=== PATIENT | female | born 1965 | race Caucasian/White ===

== ENCOUNTER → 2023-02-26 17:39 | Outpatient (CLI) | payer MEDICARE, SELFPAY ==
[2023-02-26 18:24] LABS: Basophils # 0.1 K/mm3 (0-0.2); Basophils % 0.8 % (0.1-2.0); Eosinophils # 0.3 K/mm3 (0.0-0.4); Eosinophils % 3.9 % (0.1-12.0); Hematocrit 47.7 % (37.0-47.0); Hemoglobin 15.1 g/dL (12.2-16.2); Lymphocytes # 2.2 K/mm3 (0.7-4.5); Lymphocytes % 26.1 % (10-50); Mean Corpuscular HGB Conc 31.7 g/dL (31.8-35.4); Mean Corpuscular Hemoglobin 32.3 pg (27.0-31.2); Mean Platelet Volume 9.4 fl (7.4-10.4); Monocytes # 0.5 K/mm3 (0.1-1.0); Monocytes % 5.5 % (1.7-9.3); Neutrophils # 5.3 K/mm3 (1.8-7.8); Neutrophils % 63.6 % (37.0-80.0); Platelet Count 385 K/mm3 (142-424); Red Blood Count 4.68 M/mm3 (4.20-5.40); Red Cell Distribution Width 12.4 % (11.5-17.5); White Blood Count 8.4 K/mm3 (4.8-10.8)
[2023-02-26 18:34] LABS: Alanine Aminotransferase 17 U/L (12-78); Albumin Level 4.3 g/dl (3.5-5.0); Albumin/Globulin Ratio 1.9 (1.1-1.8); Alkaline Phosphatase 113 U/L (38-126); Anion Gap 10.9 mEq/L (5-15); Aspartate Amino Transferase 21 U/L (14-36); Bilirubin,Total 1.1 mg/dl (0.2-1.3); Blood Urea Nitrogen 23 mg/dl (7-17); Calcium 9.1 mg/dl (8.4-10.2); Carbon Dioxide 29 mmol/L (22.0-30.0); Chloride 101 mmol/L (98-107); Chol/HDL Ratio 6.7 (1-3.5); Cholesterol 266 mg/dl (140-200); Estimated Glomerular Filt Rate 74 ml/min (>60); GFR (African American) 90 ML/MIN (>60); Globulin 2.3 g/dL (1.3-3.2); Glucose 134 mg/dl (74-100); HDL Cholesterol 40 mg/dl (40-60); Potassium 3.9 mmoL/L (3.5-5.1); Sodium 137 mmol/L (136-145); Total Protein,Serum 6.6 g/dl (6.3-8.2); Triglycerides 263 mg/dl (30-150); VLDL Cholesterol 53 mg/dL (0-40)
[2023-02-26 18:45] LABS: Direct LDL Cholesterol 171.88 mg/dL (100-129)
[2023-02-26 19:04] LABS: Thyroid Stimulating Hormone 2.72 uIU/mL (0.465-4.68)
[2023-02-26 20:29] LABS: Hemoglobin A1C 5.9 % (4.0-6.0)
== END ==
PROVIDERS: PCP Nurse Practitioner Family; Visit Provider Nurse Practitioner Family
DX: E78.5 Hyperlipidemia, unspecified; Z79.84 Long term (current) use of oral hypoglycemic drugs; E11.9 Type 2 diabetes mellitus without complications
CPT/HCPCS: 80053; 80061; 83036; 84443; 85025

== ENCOUNTER → 2023-07-04 10:00 | Outpatient (CLI) | payer MEDICARE, SELFPAY ==
[2023-07-02 18:38] LABS: Basophils % 0.5 % (0.1-2.0); Eosinophils # 0.4 K/mm3 (0.0-0.4); Eosinophils % 4.7 % (0.1-12.0); Hematocrit 47.1 % (37.0-47.0); Lymphocytes # 2.4 K/mm3 (0.7-4.5); Lymphocytes % 30.1 % (10-50); Mean Corpuscular HGB Conc 31.9 g/dL (31.8-35.4); Mean Corpuscular Volume 100.4 fl (81-99); Mean Platelet Volume 9.6 fl (7.4-10.4); Monocytes # 0.4 K/mm3 (0.1-1.0); Monocytes % 5.6 % (1.7-9.3); Neutrophils # 4.7 K/mm3 (1.8-7.8); Neutrophils % 59.2 % (37.0-80.0); Platelet Count 326 K/mm3 (142-424); Red Blood Count 4.69 M/mm3 (4.20-5.40); Red Cell Distribution Width 12.3 % (11.5-17.5); White Blood Count 7.9 K/mm3 (4.8-10.8)
[2023-07-02 18:58] LABS: Alanine Aminotransferase 22 U/L (12-78); Albumin Level 4.5 g/dl (3.5-5.0); Albumin/Globulin Ratio 1.6 (1.1-1.8); Alkaline Phosphatase 114 U/L (38-126); Anion Gap 14.3 mEq/L (5-15); Aspartate Amino Transferase 31 U/L (14-36); Bilirubin,Total 0.9 mg/dl (0.2-1.3); Blood Urea Nitrogen 14 mg/dl (7-17); Calcium 9.6 mg/dl (8.4-10.2); Carbon Dioxide 25 mmol/L (22.0-30.0); Chloride 104 mmol/L (98-107); Cholesterol 185 mg/dl (140-200); Estimated Glomerular Filt Rate 86 ml/min (>60); GFR (African American) 104 ML/MIN (>60); Globulin 2.8 g/dL (1.3-3.2); Glucose 109 mg/dl (74-100); HDL Cholesterol 37 mg/dl (40-60); Potassium 4.3 mmoL/L (3.5-5.1); Sodium 139 mmol/L (136-145); Total Protein,Serum 7.3 g/dl (6.3-8.2); Triglycerides 373 mg/dl (30-150); VLDL Cholesterol 75 mg/dL (0-40)
[2023-07-02 19:09] LABS: Direct LDL Cholesterol 91.13 mg/dL (100-129)
[2023-07-02 19:12] LABS: Hemoglobin A1C 5.9 % (4.0-6.0)
[2023-07-02 19:15] LABS: Troponin I < 0.01 ng/ml (0.00-0.034)
[2023-07-02 19:29] LABS: Thyroid Stimulating Hormone 1.98 uIU/mL (0.465-4.68)
== END ==
PROVIDERS: PCP Nurse Practitioner Family; Visit Provider Nurse Practitioner Family
DX: E11.9 Type 2 diabetes mellitus without complications (principal); R07.9 Chest pain, unspecified; F41.9 Anxiety disorder, unspecified; M54.2 Cervicalgia; Z79.84 Long term (current) use of oral hypoglycemic drugs; Z79.899 Other long term (current) drug therapy
CPT/HCPCS: 80053; 80061; 83036; 84443; 84484; 85025

== ENCOUNTER → 2023-09-24 13:08 | Outpatient (CLI) | payer MEDICARE, SELFPAY ==
--- NOTE | 2023-09-24 13:13 | XR_ITS ---
FINAL REPORT CLINICAL HISTORY: right hand fx FINDINGS: Right hand Three views were obtained. There is no acute fracture or dislocation. There are postoperative changes of the 1st metacarpal. No soft tissue abnormality is identified. IMPRESSION: Postsurgical changes. Reviewed, Interpreted and Dictated by Prosper Rowell III, MD Transcribed by Cat Zhu Authenticated and [facility]
== END ==
LOC: RAD 13:10
PROVIDERS: PCP Nurse Practitioner Family; Visit Provider Orthopaedic Surgery
DX: S62.91XA Unspecified fracture of right hand, initial encounter for closed fracture (principal)
CPT/HCPCS: 73130

== ENCOUNTER → 2023-09-30 09:27 | Outpatient (CLI) | payer MEDICARE, SELFPAY ==
--- NOTE | 2023-09-30 09:31 | CT_ITS ---
FINAL REPORT TECHNIQUE: Thin section axial CT images of the temporal bones were obtained. Coronal reformatted images were also obtained.This study was performed with techniques to keep radiation doses as low as reasonably achievable (ALARA). Individualized dose reduction techniques using automated exposure control or adjustment of mA and/or kV according to the patient''s size were employed. CLINICAL HISTORY: LEFT EAR PAIN AND VERTIGO COMPARISON: None FINDINGS: The internal auditory canals are symmetric. The bony inner ear structures are unremarkable. The middle ear spaces are clear with ossicle chains intact. The right mastoid air cells are unremarkable. The external auditory canal is unremarkable. The right tympanic membrane is unremarkable. On the left is presumed postoperative change from mastoidectomy without abnormal opacification. There is a soft tissue density in the deep portion of the left external auditory canal abutting the tympanic membrane. There is no associated bony erosion. This may represent cerumen, although inflammatory process can have a similar appearance. IMPRESSION: Abnormal soft tissue density left external auditory canal abutting the tympanic membrane. Middle ear spaces are clear. Postoperative changes left mastoid. Reviewed, Interpreted and Dictated by Blue Martinez MD Transcribed by Nunu Wong Authenticated and . [facility]
== END ==
LOC: RAD 09:28
PROVIDERS: PCP Nurse Practitioner Family; Visit Provider Nurse Practitioner
DX: G89.29 Other chronic pain (principal); H92.02 Otalgia, left ear; R42 Dizziness and giddiness
CPT/HCPCS: 70480

== ENCOUNTER 2024-06-11 09:28 | Outpatient (CLI) | payer MEDICARE, SELFPAY ==
[2024-06-11 17:03] LABS: Basophils # 0.1 K/mm3 (0-0.2); Basophils % 0.9 % (0.1-2.0); Eosinophils # 0.4 K/mm3 (0.0-0.4); Eosinophils % 5.2 % (0.1-12.0); Hematocrit 45.8 % (37.0-47.0); Hemoglobin 14.8 g/dL (12.2-16.2); Lymphocytes # 2.7 K/mm3 (0.7-4.5); Mean Corpuscular HGB Conc 32.4 g/dL (31.8-35.4); Mean Corpuscular Hemoglobin 33.4 pg (27.0-31.2); Mean Corpuscular Volume 103.1 fl (81-99); Mean Platelet Volume 9.6 fl (7.4-10.4); Monocytes # 0.4 K/mm3 (0.1-1.0); Monocytes % 5.6 % (1.7-9.3); Neutrophils % 52.3 % (37.0-80.0); Platelet Count 343 K/mm3 (142-424); Red Blood Count 4.44 M/mm3 (4.20-5.40); Red Cell Distribution Width 12.7 % (11.5-17.5); White Blood Count 7.6 K/mm3 (4.8-10.8)
[2024-06-11 17:28] LABS: Alanine Aminotransferase 12 U/L (12-78); Albumin Level 3.7 g/dl (3.5-5.0); Albumin/Globulin Ratio 1.5 (1.1-1.8); Alkaline Phosphatase 88 U/L (38-126); Anion Gap 9.1 mEq/L (5-15); Aspartate Amino Transferase 18 U/L (14-36); Bilirubin,Total 1.2 mg/dl (0.2-1.3); Blood Urea Nitrogen 18 mg/dl (7-17); Calcium 8.8 mg/dl (8.4-10.2); Carbon Dioxide 25 mmol/L (22.0-30.0); Chloride 110 mmol/L (98-107); Chol/HDL Ratio 6.6 (1-3.5); Cholesterol 236 mg/dl (140-200); Estimated Glomerular Filt Rate 103 ml/min (>60); GFR (African American) 124 ML/MIN (>60); Globulin 2.5 g/dL (1.3-3.2); Glucose 100 mg/dl (74-100); HDL Cholesterol 36 mg/dl (40-60); Potassium 4.1 mmoL/L (3.5-5.1); Sodium 140 mmol/L (136-145); Total Protein,Serum 6.2 g/dl (6.3-8.2); Triglycerides 239 mg/dl (30-150); VLDL Cholesterol 48 mg/dL (0-40)
[2024-06-11 17:39] LABS: Direct LDL Cholesterol 151.53 mg/dL (100-129)
[2024-06-11 17:46] LABS: 25-OH Vitamin D, Total 20.4 ng/mL (30-100)
[2024-06-11 18:00] LABS: Thyroid Stimulating Hormone 0.18 uIU/mL (0.465-4.68)
[2024-06-11 18:05] LABS: Hemoglobin A1C 6.2 % (4.0-6.0)
[2024-06-11 22:38] LABS: Creatinine,Urine Random 87 mg/dL (Not Estab.); Microalbumin < 6.000 mg/L (0-16.7)
== END 2024-06-11 23:59 | disposition home or self-care (01) ==
LOC: LAB.DROPOF 06-12 09:29
PROVIDERS: PCP Nurse Practitioner Family; Visit Provider Nurse Practitioner Family
DX: E03.9 Hypothyroidism, unspecified (principal); E78.5 Hyperlipidemia, unspecified; E55.9 Vitamin D deficiency, unspecified; R73.03 Prediabetes
CPT/HCPCS: 80050; 80053; 80061; 82043; 82306; 82570; 83036; 84443; 85025

== ENCOUNTER 2024-06-22 12:30 | Outpatient (CLI) | payer MEDICARE, SELFPAY ==
--- NOTE | 2024-06-22 12:34 | MM_ITS ---
PROCEDURE INFORMATION: Exam: MG Bilateral Screening 3D Mammography Exam date and time: 06/22/2024 1:10 PM Age: 59 years old Clinical indication: Screening examination. TECHNIQUE: Imaging protocol: Bilateral Screening tomosynthesis and 2D mammography including computer-aided detection (CAD) when performed. COMPARISON: 1. MG JOVANNY DIAG MAMMO W/CAD BILAT 02/27/2021 1:45 PM 2. MG JOVANNY DIAG MAMMO W/CAD RT 06/15/2020 11:02 AM FINDINGS: MAMMOGRAPHY: Breast composition: The breasts are heterogeneously dense, which may obscure small masses. Mass: None. Architectural distortion: None. Calcifications: No suspicious calcifications. Asymmetric density: None. Skin thickening: None. Axillary adenopathy: None. IMPRESSION: No mammographic evidence of malignancy. Annual screening is recommended unless otherwise clinically indicated. ASSESSMENT: BI-RADS Category 1: Negative
--- NOTE | 2024-06-22 12:34 | CT_ITS ---
FINAL REPORT CLINICAL HISTORY: lung cancer screening, CURRENT SMOKER, 1/3PPD, 39YEARS FINDINGS: CTDI vol (mGy): 2.90 DLP: 99.[address] images of the chest were obtained using the low-dose protocol for screening. There is no evidence of mediastinal or hilar mass or adenopathy. No axillary mass or adenopathy is identified. On the lung window images, no pulmonary mass or suspicious nodule is identified. IMPRESSION: Lung RADS category 1 . Recommend 12 month followup low-dose CT for further evaluation. Reviewed, Interpreted and Dictated by Flo Freeman MD Transcribed by Pam Kennedy Authenticated and [facility]
== END 2024-06-22 23:59 | disposition home or self-care (01) ==
LOC: RAD 12:31
PROVIDERS: PCP Nurse Practitioner Family; Visit Provider Nurse Practitioner Family
DX: Z12.31 Encounter for screening mammogram for malignant neoplasm of breast (principal); Z87.891 Personal history of nicotine dependence
CPT/HCPCS: 71271; 77063; 77067

== ENCOUNTER 2024-07-30 13:46 | Outpatient (CLI) | payer MEDICARE, MEDICAID, SELFPAY ==
[2024-07-30 19:59] LABS: HIV (1&2) Antibody Rapid NONREACTIVE (NONREACTIVE)
[2024-07-30 20:09] LABS: Thyroid Stimulating Hormone 1.48 uIU/mL (0.465-4.68)
[2024-08-01 07:12] LABS: HBsAg Screen Negative (Negative); HCV Ab Non Reactive (Non Reactive); Hep A Ab, IGM Negative (Negative); Hep B Core Ab, IgM Negative (Negative)
[2024-08-01 10:11] LABS: Rapid Plasma Reagin Ab Titer Non Reactive titer (NonRea<1:1)
[2024-08-03 04:12] LABS: Neisseria gonorrhoeae, NAA Negative (Negative)
[2024-08-04 09:14] LABS: HSV-1 DNA Negative (Negative); HSV-2 DNA Negative (Negative)
== END 2024-07-30 23:59 | disposition home or self-care (01) ==
LOC: LAB.DROPOF 07-31 14:48
PROVIDERS: PCP Student in an Organized Health Care Education/Training Program; Visit Provider Student in an Organized Health Care Education/Training Program
DX: Z71.1 Person with feared health complaint in whom no diagnosis is made (principal); R39.9 Unspecified symptoms and signs involving the genitourinary system; Z20.2 Contact with and (suspected) exposure to infections with a predominantly sexual mode of transmission; N39.0 Urinary tract infection, site not specified; E03.9 Hypothyroidism, unspecified
CPT/HCPCS: 80074; 84443; 86593; 86803; 87086; 87088; 87186; 87389; 87491; 87529; 87591

== ENCOUNTER 2024-10-22 09:17 | Outpatient (CLI) | payer MEDICARE, MEDICAID, SELFPAY ==
[2024-10-22 16:55] LABS: Basophils % 0.9 % (0.1-2.0); Eosinophils % 4.1 % (0.1-12.0); Hematocrit 42.6 % (37.0-47.0); Lymphocytes % 37.6 % (10-50); Mean Corpuscular HGB Conc 32.9 g/dL (31.8-35.4); Mean Corpuscular Volume 97.5 fl (81-99); Mean Platelet Volume 9.2 fl (7.4-10.4); Neutrophils # 3.6 K/mm3 (1.8-7.8); Neutrophils % 51.3 % (37.0-80.0); Platelet Count 303 K/mm3 (142-424); Red Blood Count 4.37 M/mm3 (4.20-5.40); Red Cell Distribution Width 12.7 % (11.5-17.5); White Blood Count 7.1 K/mm3 (4.8-10.8)
[2024-10-22 16:56] LABS: Basophils # 0.1 K/mm3 (0-0.2); Eosinophils # 0.3 K/mm3 (0.0-0.4); Lymphocytes # 2.7 K/mm3 (0.7-4.5); Monocytes # 0.4 K/mm3 (0.1-1.0)
[2024-10-22 17:29] LABS: Albumin Level 4.1 g/dl (3.5-5.0); Chloride 110 mmol/L (98-107); Sodium 137 mmol/L (136-145)
[2024-10-22 17:32] LABS: Alanine Aminotransferase 16 U/L (12-78); Albumin/Globulin Ratio 1.8 (1.1-1.8); Alkaline Phosphatase 125 U/L (38-126); Aspartate Amino Transferase 22 U/L (14-36); Bilirubin,Total 0.6 mg/dl (0.2-1.3); Blood Urea Nitrogen 20 mg/dl (7-17); Calcium 9.2 mg/dl (8.4-10.2); Carbon Dioxide 25 mmol/L (22.0-30.0); Cholesterol 238 mg/dl (140-200); Estimated Glomerular Filt Rate 64 ml/min (>60); GFR (African American) 78 ML/MIN (>60); Globulin 2.3 g/dL (1.3-3.2); Glucose 131 mg/dl (74-100); Total Protein,Serum 6.4 g/dl (6.3-8.2); Triglycerides 204 mg/dl (30-150); VLDL Cholesterol 41 mg/dL (0-40)
[2024-10-22 17:33] LABS: HDL Cholesterol 40 mg/dl (40-60)
[2024-10-22 17:43] LABS: Direct LDL Cholesterol 161.51 mg/dL (100-129)
[2024-10-22 18:03] LABS: Thyroid Stimulating Hormone 3.69 uIU/mL (0.465-4.68)
[2024-10-22 21:17] LABS: Hemoglobin A1C 6.2 % (4.0-6.0)
== END 2024-10-22 23:59 | disposition home or self-care (01) ==
LOC: LAB.DROPOF 10-23 09:36
PROVIDERS: PCP Nurse Practitioner Family; Visit Provider Nurse Practitioner Family
DX: N39.0 Urinary tract infection, site not specified (principal); E78.5 Hyperlipidemia, unspecified; E03.9 Hypothyroidism, unspecified; R39.9 Unspecified symptoms and signs involving the genitourinary system; E11.9 Type 2 diabetes mellitus without complications
CPT/HCPCS: 80053; 80061; 83036; 84443; 85025; 87086

== ENCOUNTER 2024-11-30 10:25 | Outpatient (CLI) | payer MEDICARE, MEDICAID, SELFPAY ==
[2024-11-30 16:39] LABS: Triiodothryronine (T3) Uptake 33 % (23.5-40.5)
[2024-11-30 16:40] LABS: Free Thyroxine Index 3.1 ug/dL (5.93-13.13); T4 (Thyroxine) 9.4 ug/dl (5.53-11.0)
[2024-12-01 13:08] LABS: FSH 49.7 mIU/mL (.); LH 40.7 mIU/mL (.); Progesterone 0.1 ng/mL (.)
[2024-12-04 00:09] LABS: Estrogen 190 pg/mL (40-244)
== END 2024-11-30 23:59 | disposition home or self-care (01) ==
LOC: LAB.DROPOF 12-01 09:06
PROVIDERS: PCP Nurse Practitioner Family; Visit Provider Nurse Practitioner Family
DX: L74.9 Eccrine sweat disorder, unspecified (principal); E03.9 Hypothyroidism, unspecified; F41.9 Anxiety disorder, unspecified
CPT/HCPCS: 82672; 83001; 83002; 84144; 84436; 84443; 84479

== ENCOUNTER 2025-01-19 09:21 | Outpatient (CLI) | payer MEDICARE, MEDICAID, SELFPAY ==
[2025-01-19 19:56] LABS: Basophils # 0.1 K/mm3 (0-0.2); Basophils % 0.7 % (0.1-2.0); Eosinophils # 0.3 K/mm3 (0.0-0.4); Eosinophils % 4.1 % (0.1-12.0); Hematocrit 43.2 % (37.0-47.0); Hemoglobin 13.9 g/dL (12.2-16.2); Lymphocytes # 2.3 K/mm3 (0.7-4.5); Lymphocytes % 31.4 % (10-50); Mean Corpuscular HGB Conc 32.2 g/dL (31.8-35.4); Mean Corpuscular Volume 99.3 fl (81-99); Monocytes # 0.4 K/mm3 (0.1-1.0); Neutrophils # 4.2 K/mm3 (1.8-7.8); Neutrophils % 57.7 % (37.0-80.0); Platelet Count 306 K/mm3 (142-424); Red Blood Count 4.35 M/mm3 (4.20-5.40); Red Cell Distribution Width 12.9 % (11.5-17.5); White Blood Count 7.3 K/mm3 (4.8-10.8)
[2025-01-19 20:52] LABS: Hemoglobin A1C 6.2 % (4.0-6.0)
[2025-01-19 21:21] LABS: Albumin Level 4.4 g/dl (3.5-5.0); Chloride 108 mmol/L (98-107); Potassium 4.3 mmoL/L (3.5-5.1); Sodium 139 mmol/L (136-145)
[2025-01-19 21:23] LABS: Alanine Aminotransferase 19 U/L (12-78); Aspartate Amino Transferase 20 U/L (14-36); Blood Urea Nitrogen 22 mg/dl (7-17); Estimated Glomerular Filt Rate 86 ml/min (>60); GFR (African American) 104 ML/MIN (>60)
[2025-01-19 21:24] LABS: Albumin/Globulin Ratio 2.3 (1.1-1.8); Alkaline Phosphatase 109 U/L (38-126); Anion Gap 10.3 mEq/L (5-15); Bilirubin,Total 0.6 mg/dl (0.2-1.3); Calcium 9.7 mg/dl (8.4-10.2); Carbon Dioxide 25 mmol/L (22.0-30.0); Chol/HDL Ratio 5.8 (1-3.5); Cholesterol 230 mg/dl (140-200); Globulin 1.9 g/dL (1.3-3.2); Glucose 101 mg/dl (74-100); HDL Cholesterol 40 mg/dl (40-60); Total Protein,Serum 6.3 g/dl (6.3-8.2); Triglycerides 193 mg/dl (30-150); VLDL Cholesterol 39 mg/dL (0-40)
[2025-01-19 21:35] LABS: Direct LDL Cholesterol 142.77 mg/dL (100-129)
== END 2025-01-19 23:59 | disposition home or self-care (01) ==
LOC: LAB.DROPOF 01-20 09:09
PROVIDERS: PCP Nurse Practitioner Family; Visit Provider Nurse Practitioner Family
DX: R31.9 Hematuria, unspecified (principal); E78.5 Hyperlipidemia, unspecified; E11.9 Type 2 diabetes mellitus without complications
CPT/HCPCS: 80053; 80061; 83036; 85025; 87086

== ENCOUNTER 2025-04-06 11:35 | Outpatient (CLI) | payer MEDICARE, MEDICAID, SELFPAY ==
[2025-04-06 19:12] LABS: Creatinine,Urine Random 35 mg/dL (Not Estab.); Microalbumin < 6.000 mg/L (0-16.7)
== END 2025-04-06 23:59 | disposition home or self-care (01) ==
LOC: LAB.DROPOF 04-07 10:45
PROVIDERS: Family Medicine; PCP Nurse Practitioner Family; Visit Provider Nurse Practitioner Family
DX: R39.9 Unspecified symptoms and signs involving the genitourinary system (principal)
CPT/HCPCS: 82043; 82570; 87086

== ENCOUNTER 2025-04-20 09:40 | Outpatient (CLI) | payer MEDICARE, MEDICAID, SELFPAY ==
[2025-04-20 19:34] LABS: Basophils # 0.1 K/mm3 (0-0.2); Basophils % 0.9 % (0.1-2.0); Eosinophils # 0.4 Kmm3 (0.0-0.4); Eosinophils % 3.6 % (0.1-12.0); Hematocrit 44.5 % (37.0-47.0); Hemoglobin 14.3 g/dL (12.2-16.2); Immature Granulocytes # 0.03 10^3uL; Immature Granulocytes % 0.3 %; Lymphocytes # 2.7 K/mm3 (0.7-4.5); Lymphocytes % 27.5 % (10-50); Mean Corpuscular HGB Conc 32.1 g/dL (31.8-35.4); Mean Corpuscular Hemoglobin 31.8 pg (27.0-31.2); Mean Corpuscular Volume 99.1 fl (81-99); Monocytes # 0.6 K/mm3 (0.1-1.0); Monocytes % 6.2 % (1.7-9.3); Neutrophils % 61.5 % (37.0-80.0); Nucleated Red Blood Cells # 0 10^3/uL; Nucleated Red Blood Cells % 0 %; Platelet Count 340 K/mm3 (142-424); Red Blood Count 4.49 M/mm3 (4.20-5.40); Red Cell Distribution Width 12.8 % (11.5-17.5); Red Cell Distribution Width-SD 46.4 fL; White Blood Count 9.8 K/mm3 (4.8-10.8)
[2025-04-20 19:52] LABS: Alanine Aminotransferase 9 U/L (12-78); Albumin Level 4.2 g/dl (3.5-5.0); Albumin/Globulin Ratio 1.7 (1.1-1.8); Alkaline Phosphatase 87 U/L (38-126); Anion Gap 8.6 mEq/L (5-15); Aspartate Amino Transferase 17 U/L (14-36); Blood Urea Nitrogen 16 mg/dl (7-17); Calcium 10.1 mg/dl (8.4-10.2); Carbon Dioxide 29 mmol/L (22.0-30.0); Chloride 103 mmol/L (98-107); Chol/HDL Ratio 6.9 (1-3.5); Cholesterol 243 mg/dl (140-200); Estimated Glomerular Filt Rate 74 ml/min (>60); GFR (African American) 89 ML/MIN (>60); Globulin 2.5 g/dL (1.3-3.2); Glucose 73 mg/dl (74-100); HDL Cholesterol 35 mg/dl (40-60); Potassium 4.6 mmoL/L (3.5-5.1); Sodium 136 mmol/L (136-145); Total Protein,Serum 6.7 g/dl (6.3-8.2); Triglycerides 214 mg/dl (30-150); VLDL Cholesterol 43 mg/dL (0-40)
[2025-04-20 20:03] LABS: Direct LDL Cholesterol 150.67 mg/dL (100-129)
[2025-04-20 20:17] LABS: Hemoglobin A1C 5.9 % (4.0-6.0)
[2025-04-20 20:25] LABS: Thyroid Stimulating Hormone 5.65 uIU/mL (0.465-4.68)
--- OUTSIDE RECORDS SUMMARY | 2025-04-21 10:03 | XMS_ITS | Referral Summary ---
Author Organization [employer] Address [address] [place] [address] Care Team Providers Care Adobe Layer Helper Name Role Phone [facility], Provider Not In The System Primary Care Provider Unavailable Phillip Amanda MD Unavailable Allergies Active Allergy Reactions Criticality Noted Date Comments Sulfa (Sulfonamide Antibiotics) Hives High 11/05 Medications albuterol HFA (VENTOLIN HFA) 90 mcg/actuation inhaler 1 puff 4 (four) times daily. 03/07/2024 Active DULoxetine (CYMBALTA) 60 MG capsule Take 1 capsule (60 mg total) by mouth daily. 03/08/2024 Active estradioL (ESTRACE) 0.5 MG tablet Take 1 tablet (0.5 mg total) by mouth daily. 02/07/2024 Active levothyroxine (SYNTHROID, LEVOTHROID) 100 MCG tablet Take 1 tablet (100 mcg total) by mouth daily. 02/07/2024 Active metFORMIN (GLUCOPHAGE) 500 MG tablet Take 1 tablet (500 mg total) by mouth daily. 03/12/2024 Active mirtazapine (REMERON) 30 MG tablet Take 1 tablet (30 mg total) by mouth daily. 03/06/2024 Active rosuvastatin (CRESTOR) 20 MG tablet Take 1 tablet (20 mg total) by mouth daily. 02/08/2024 Active Active Problems No known active problems Social History Tobacco Use Types Packs/Day Years Used Date Smoking Tobacco: Every Day Cigarettes Smokeless Tobacco: Never Tobacco Cessation:Ready to Q uit: Yes; Counseling Given: Yes Alcohol Use Standard Drinks/Week Comments Never 0 (1 standard drink = 0.6 oz pur e alcohol) Interpersonal Safety Answer Date Record ed Family or friends hurt you Not on file 03/19 Family or friends insult you Not on file Family or friends threaten you Not on file 0 03/19/2024 Family or friends scream or curse at you Not on file 03/19/2024 Family and Community Support Answer Salbador e Recorded Help with Day to Day Activities Not on file 03/19/2024 Feeling Lonely or Isolated Not on file 03/19 Educational Attainment Answer Date Rey rded Speak language other than Filipino at home Not on file 03/19/2024 Want help with school or training Not on file 03/19/2024 Depression Answer Date Recorded PHQ-2 Risk Not on file 03/19/2024 Disabilities Answer Date Recorded Difficulty concentrating Not on file 024 Difficulty doing errands alone Not on file 0 03/19/2024 Substance Use Answer Date Recorded Used prescription meds for non-medical reasons N ot on file 03/19/2024 Used illegal drugs past 12 months Not on file 03/19/2024 Comments Unknown Sex and Gender Information Value Date Recorded Sex Assigned at Not on file Legal Sex Female 3:19 PM CDT Gender Identity Not on file Sexual Orientation Not on file Last Filed Vital Signs Vital Sign Reading Time Taken Comments Blood Pressure 128/72 04/09/2024 4:21 PM EDT Pulse 72 04/09/2024 4:21 PM EDT Temperature - - Respiratory Rate - - Oxygen Saturation 94% 04/09/2024 4:21 PM EDT Inhaled Oxygen Concentration - - Weight 74.4 kg (164 lb) 04/09/2024 4:21 PM EDT Height 172.7 cm (5' 8 ) 04/09/2024 4:21 PM EDT Body Mass Index 24.94 04/09/2024 4:21 PM EDT Plan of Treatment Not on file Insurance [employer] MEDICARE HMO Care Teams Adobe Layer Helper Relationship Specialty Start Date End Date [facility], Provider Not In The System, [place] [address] PCP - General 04/09/24 Phillip Amanda MD [address] [place] [address] [address] [place] [address] Cardiology 04/09/24
--- OUTSIDE RECORDS SUMMARY | 2025-04-21 10:03 | XMS_ITS | Clinical Summary ---
Author Organization Healthcare Address [address] [place] [address] Care Team Providers Care Production Clerks Supervisor Name Role Phone Jb Wayne Primary Care Provider [phone] Family History Medical History Relation Name Comments Diabetes Mother Migraines Mother Thyroid disease Mother Relation Name Status Comments Mother Social History Tobacco Use Types Packs/Day Years Used Date Smoking Tobacco: Every Day Alcohol Use Standard Drinks/Week Comments No 0 (1 standard drink = 0.6 oz pur e alcohol) Comments Unknown Sex and Gender Information Value Date Recorded Sex Assigned at Not on file Legal Sex Female 8:52 PM EDT Gender Identity Not on file Sexual Orientation Not on file Last Filed Vital Signs Vital Sign Reading Time Taken Comments Blood Pressure 125/82 07/16/2018 8:27 AM EDT Pulse 86 07/16/2018 8:27 AM EDT Temperature 36.7 C (98 F) 06/05/2018 10:20 AM EDT Respiratory Rate - - Oxygen Saturation - - Inhaled Oxygen Concentration - - Weight 72.6 kg (159 lb 15.8 oz) 07/16/2018 8:27 AM EDT Height 172.7 cm (5' 8 ) 07/16/2018 8:27 AM EDT Body Mass Index 24.33 07/16/2018 8:27 AM EDT Plan of Treatment Health Maintenance Due Date Last Done Comments Dental Prophylaxis 1966 Dental X-Ray: Bitewings 1966 [facility]-Depression Screening 1966 [facility]-/Child/Adol SDOH Screenings 1966 [facility]- SDOH Screenings 1984 [facility]-Adult SDOH Screenings 1984 [facility]-DTaP,Tdap,and Td Vaccine s (1 - Tdap) 1985 [facility]-Hepatitis B Vaccines (1 of 3 - 19+ 3-dose series) 1985 [facility]-Pap Smear 08/03/2005 08/03/2002 [facility]-Cervical Cancer Screening 08/03/2007 [facility]-HPV/Cotest 08/03/2007 08/03/2002 Dental Oral Exam 09/05/2007 03/04/2007 Dental X-Ray: Full Mouth 03/05/2010 03/04/2007 CT Colonography 2011 Colonoscopy 2011 FIT-DNA 2011 FIT 2011 FOBT 2011 Sigmoidoscopy 2011 [facility]-Colorectal Cancer Screening 2011 [facility]-Pneumococcal Vaccine: 50 + Years (1 of 1 - PCV) 2016 [facility]-Zoster Vaccines (1 of 2) 2016 [id number] Vaccine (1 - 20 24-25 season) 2024 [facility]-Influenza Vaccine (Seaso n Ended) 2025 HPV Vaccines Aged Out No longer eligi ble based on patient's age to complete this topic [facility]-HIB Vaccines Aged Out No longer e ligible based on patient's age to complete this topic [facility]-Hepatitis A Vaccines Aged Out No longer eligible based on patient's age to complete this topic [facility]-IPV Vaccines Aged Out No longer e ligible based on patient's age to complete this topic [facility]-Rotavirus Vaccines Aged Out No lo nger eligible based on patient's age to complete this topic Procedures Procedure Name Priority Date/Time Associated Diagnosis Comments PANORAMIC RADIOGRAPHIC IMAGE Routine 03/04/2007 12:00 AM EDT COMPREHENSIVE ORAL EVALUATION - NEW OR ESTABLISHED PATIENT Routine 03/04/2007 12:00 AM EDT CYTO DATA CONVERSION Routine 08/03/2002 12:00 AM EDT from Last 3 Months or Most Recently Relevant to Health Maintenance Results * Cytology (08/03/2002 12:00 AM EDT) 08/03/2002 08/04/2002 12: 59 PM EDT Narrative SUNQUEST - 08/10/2002 10:53 AM EDT [facility] MR #: [id number] [facility] [place], [place] [address] 1965 (Age: 37) FW Collect Date: 08/03/2002 00:00 Receipt Date: 08/04/2002 12:59 Page 1 DEPARTMENT OF PATHOLOGY AND LABORATORY MEDICINE CYTOPATHOLOGY REPORT Email: [email or web address] [phone] ATTENDING MD/Practitioner: Barb Lennon MD Service: [facility] [place] [facility] [place]: 08/10/2002 10:53 Collected: 08/03/2002 00:00 INTERPRETATION THIN PREP (CERVICAL/VAGINAL): NEGATIVE FOR INTRAEPITHELIAL LESION OR MALIGNANCY. INFLAMMATORY CHANGE. SATISFACTORY FOR EVALUATION; ENDOCERVICAL/TRANSFORMATION ZONE COMPONENT ABSENT/INSUFFICIENT. Electronically Signed Out By SANDI Banks (ASCP) SANDI Villagran(ASCP) SANDI Banks (ASCP) Cervical cytology is a screening test primarily for squamous cancers and precursors and has associated false negative and positive results. New technologies such as liquid based sampling may decrease but will not eliminate all false negative results. Regular screening and follow-up of unexplained clinical signs and symptoms are recommended to minimize false negative results. Please see the ASCCP website (www.asccp.org) for followup recommendations. If HPV testing was requested, correlation with the results is suggested (please call Microbiology at [phone] for results). CLINICAL INFORMATION: Menstrual History: Postmenopausal Date of Last Menstrual Period: {Not Provided} Other Clinical Conditions: Tobacco user SPECIMEN DESCRIPTION: A: THIN PREP (CERVICAL/VAGINAL) THIN PREP PROCESS CELLULAR ENHANCEMENT ICD: V76.2 CERVIX, SPECIAL SCREENING FOR MALIGNANT NEOPLASM F: A; THIN SCRN [id number] SNOMED CODES: A; [id number] In cases where a pathologist has signed out the report, the service has been rendered in part by a resident. The signing pathologist has performed and is responsible for the reported pathologic evaluation. Mariann Lennon MD LAB PATHOLOGY ORDERABLES Fi nal Result SUNQUEST from Last 3 Months or Most Recently Relevant to Health Maintenance Care Teams Production Clerks Supervisor Relationship Specialty Start Date End Date Jb Wayne: [phone] [facility] [address] [place] [address] [facility] - General 03/17/21
--- OUTSIDE RECORDS SUMMARY | 2025-04-21 10:03 | XMS_ITS | Clinical Summary ---
Author Organization [employer] Address [address] [place] [address] Care Team Providers Care Mobility Developer Name Role Phone [facility], Provider Not In The System Primary Care [...] Active Active Problems No known active problems Family History Medical History Relation Name Comments Heart disease Mother Relation Name Status Comments Mother [...] Date Rey rded Speak language other than Togolese at home Not on file 03/19/2024 Want [...] 04/09/2024 4:21 PM EDT Plan of Treatment Health Maintenance Due Date Last Done Comments CT Colonography 1966 Colonoscopy 1966 Colorectal Cancer Screening 1966 FOBT/FIT 1966 Fit-DNA (Cologuard) 1966 Sigmoidoscopy 1966 Depression Screening (12+) 1978 Tobacco Cessation Counseling and Screening (12+) 1978 04/09/2024 HIV Screening 1981 Hepatitis C Screening 1984 Pneumococcal 50+ years (1 of 2 - PCV) 1985 Pap Smear 1987 Breast Cancer Screening 2006 Lipid Panel 2011 Shingles Vaccine (Zoster) (1 of 2) 2016 Medicare Initial AWV [id number] 11/05/2023 COVID-19 VACCINE (3 - season) 07/05/202404/2021, 02/09/2021 Influenza Vaccine (Season Ended) 2025 DTAP/TDAP/TD VACCINES (2 - Td or Tdap) 02/20/2031 [place] [address] Care Teams Mobility Developer Relationship Specialty Start Date End Date [facility], Provider Not In The System, [place] [address] PCP - General 04/09/24 [place] [address] [place] [address] [address] [place] [address] Cardiology 04/09/24
--- OUTSIDE RECORDS SUMMARY | 2025-04-21 10:04 | XMS_ITS | Data Portability ---
Author Organization [place] - [facility] & [place] [facility] ADMIN Address [address] [place] [id number] Assessment No assessment recorded. Plan of Treatment Reminders Order Date Submit Date Provider Last Modified By Organization Details Last Modified Time Details Appointments OV EST 15 2025 09:30A M Mark Corral Jr, MD Not available Not available Not available Lab None recorded . Referral None recorded . Procedures None recorded . Surgeries None recorded . Imaging None recorded . Medication Orders Gemtesa 75 mg tablet [address] [facility], [address] [facility], [place], [address], 12/16/2024 13:03:45 Gemtesa 75 mg tablet [address] [facility], [address] [facility], [place], [address], 10/14/2024 12:58:13 Patient TargetsNo targets recorded. Patient InstructionsNo instructions recorded. Reason for Referral None Reported. Results Created Date Observation Date Name Description Value Unit Range Abnormal Flag Note LastModifiedBy Organization Detail LastModifiedTime 09/25/20 24 09/25/2024 fluor o less than 1 [facility] [address] [place] [address] Phone: Fax: Name: ANIYAH WARREN Exam Date: 2023 : 966 Age 59 years Gender : F Access ion: [id number] Physic noris: Facili ty: [place] Facili ty HSV: Outpat ient Exam: FLUORO LESS THAN 1 HR FL LESS THAN 1 HOUR Reason For Study: Ureter oscopy FINDIN GS: Fluoro scopic assist ance was provid ed to the attend ing physic noris by the [facility] techno logist . RADIAT ION DOSE: Radiat ion exposu re in refere nce to Air Kerma: 0.63 mGy FLUORO SCOPY TIME: 1.9 second s . FLUORO SCOPY FILMS: 1 IMPRES DENICE: Fluoro scopic assist ance provid ed. Please see operat sonia report . Electr onical ly signed by: Selena Mckeon MD 2023 02:27 PM EST RP Workst ation: [id number] Dictat ed By: SELENA MCKEON Transc ribed By: Transc ribed On: 2023 1:09 PM Electr onical ly signed by: SELNEA MCKEON 2023 Thank you for referr ing ANIYAH WARREN to [facility]. Legall y authen ticate d by NAHUM WALTERS MD 2023-11 13:09: 09 CC'ed Logic: Orderi ng Provid er: ISAIAH German Attend ing Provid er: ISAIAH German Admitt ing Provid er: ISAIAH German [email or web address] [facility] (Radiology) [address] [place], [address], 10/08/2024 08:13:28 09/27/20 24 09/25/2024 XR, abdom en, 1 view [facility] [address] [place] [address] [place] [address] Phone: Fax: Name: ANIYAH WARREN Exam Date: 2023 : 966 Age 59 years Gender : F Access ion: [id number] Physic noris: [place]ili [place]: [place] Facili ty HSV: Outpat ient Exam: ABD KUB 1V Fluoro scopic image of the right lower quadra nt. Fluoro scopy time, 1 second . Note: For reason s, unknow n to me, this examin ation was appare ntly assign ed for me to read froylan sweet, I was unawar e of this. Apolog ize for any delay in report ing turn around time. INDICA TION: None provid ed. Image for view, one image. Examin ation demons trates a single fluoro scopic image center ed over the right lower quadra nt. The study demons trates what appear s be a guidew rey michelle sing superi or to inferi or crossi ng over the right first sacral segmen t. Lumbos acral pedicu lar chuy and screw fixati on on the right, partia lly demons trated on the left with what appear s to be a disc graft device at the lumbos acral juncti on. There are no additi onal images . No furthe r commen t can be given. If there are suppos ed to be additi onal images and these are submit luanne for review , an addend um may be given. Electr onical ly signed by: Criselda sanford MD 2023 01:35 AM EST RP Workst ation: [id number] Dictat ed By: CRISELDA JUAREZ Transc ribed By: Transc ribed On: 2023 1:09 PM Electr onical ly signed by: CRISELDA JUAREZ 2023 Thank you for referr ing ANIYAH WARREN to [facility]. Legall y authen ticate d by MICHAEL ABURTO 2023-11-25 13:09: 16 CC'ed Logic: Orderi ng Provid er: ISAIAH German CC Provid er: CHUCHO Armstrong Attend ing Provid er: ISAIAH German Referr ing Provid er: ISAIAH German Admitt ing Provid er: ISAIAH German [email or web address] [facility] (Radiology) [address] , [place], [address], 10/08/2024 08:13:29 Result Notes None recorded. Problems No Known Problems Procedures Surgical History Date Name Laterality Status Provider Name and Address Organization Details Recorded Time ureteroscopy completed Dewayne ANDERSON [facility] & [place] 10/14/2024 10:14:01 Imaging Results None recorded. Procedure Notes None recorded. Medical Equipment None Reported. Allergies Allergen ID Allergen Name Allergen Category Reaction Reaction Severity Criticality Documentation Date Start Date Code Code System Note Provider Name and Address Organization Details Recorded Time [id number] Substance with sulfonami de structure and antibacte rial mechanism of action (substanc e) medicatio n Not available Not available Not available 10/14/2024 93788 [id number] SNOMED Dewayne looney, [facility] & [place] 4 10:11:35 Medications Name Sig Start Date Stop Date Status Note LastModified by Organization Details LastModified Time amoxicillin 500 mg capsule TAKE 1 CAPSULE BY MOUTH THREE TIMES DAILY UNTIL GONE 10/14 completed Not Available Not Available Not Available fluconazole 100 mg tablet TAKE 2 TABLETS BY MOUTH FOR 1 DAY THEN TAKE 1 TABLET BY MOUTH DAILY FOR 13 DAYS active Not Available Not Available No t Available metformin 500 mg tablet TAKE 1 TABLET BY MOUTH TWICE DAILY FOR DIABETES active Not Available Not Available No t Available ibuprofen 800 mg tablet TAKE 1 TABLET BY MOUTH EVERY 8 HOURS WITH FOOD NEEDED active Not Available Not Available No t Available fluconazole 150 mg tablet active Not Available Not Available Not Available hydrocodone 5 mg-acetamin ophen 325 mg tablet Take 1 tablet every 6 hours by oral route as needed. 10/14 completed Not Available Not Available Not Available promethazin e 12.5 mg tablet TAKE 1 TABLET BY MOUTH EVERY 6 HOURS NEEDED FOR NAUSEA AND VOMITING active Not Available Not Available No t Available clindamycin HCl 150 mg capsule TAKE 2 CAPSULES BY MOUTH NOW THEN TAKE 1 CAPSULE BY MOUTH FOUR TIMES DAILY UNTIL GONE active Not Available Not Available No t Available prochlorper azine maleate 10 mg tablet TAKE 1 TABLET BY MOUTH EVERY 8 HOURS NEEDED active Not Available Not Available No t Available ciprofloxac in 500 mg tablet TAKE 1 TABLET BY MOUTH EVERY 12 HOURS FOR 10 DAYS 10/14 completed Not Available Not Available Not Available amoxicillin 500 mg tablet TAKE 1 TABLET BY MOUTH THREE TIMES DAILY 10/14 completed Not Available Not Available Not Available levothyroxi ne 100 mcg tablet TAKE 1 TABLET BY MOUTH DAILY active Not Available Not Available No t Available oxycodone-a cetaminophe n 5 mg-325 mg tablet TAKE 1 TABLET BY MOUTH EVERY 4 HOURS NEEDED FOR PAIN active Not Available Not Available No t Available levothyroxi ne 88 mcg tablet TAKE 1 TABLET BY MOUTH DAILY 10/14 completed Not Available Not Available Not Available famotidine 20 mg tablet TAKE 1 TABLET BY MOUTH DAILY active Not Available Not Available No t Available amitriptyli ne 25 mg tablet TAKE 1 TABLET AT BEDTIME active Not Available Not Available No t Available methocarbam ol 750 mg tablet TAKE 1 TABLET BY MOUTH FOUR TIMES DAILY active Not Available Not Available No t Available estradiol 1 mg tablet active Not Available Not Available No t Available tamsulosin 0.4 mg capsule TAKE 1 CAPSULE BY MOUTH DAILY 30 MINUTES AFTER THE SAME MEAL active Not Available Not Available No t Available meclizine 25 mg tablet TAKE 1 TABLET BY MOUTH THREE TIMES DAILY NEEDED active Not Available Not Available No t Available hydrocodone 7.5 mg-acetamin ophen 325 mg tablet TAKE 1 TABLET BY MOUTH THREE TIMES DAILY NEEDED active Not Available Not Available No t Available mirtazapine 30 mg tablet TAKE 1 TABLET BY MOUTH DAILY active Not Available Not Available No t Available buspirone 10 mg tablet active Not Available Not Available Not Available polymyxin B sulfate 10,000 unit-trimet hoprim 1 mg/mL eye drops active Not Available Not Available Not Available betamethaso ne dipropionat e 0.05 % topical cream APPLY TOPICALLY TO THE AFFECTED AREA DAILY NEEDED FOR SKIN IRRITATIO N active Not Available Not Available No t Available diclofenac sodium 75 mg tablet,ava yed release TAKE 1 TABLET BY MOUTH TWICE DAILY active Not Available Not Available No t Available hydroxyzine HCl 25 mg tablet TAKE 1 TABLET BY MOUTH THREE TIMES DAILY NEEDED FOR ANXIETY active Not Available Not Available No t Available diclofenac sodium 50 mg tablet,ava yed release TAKE 1 TABLET BY MOUTH THREE TIMES DAILY 10/14 completed Not Available Not Available Not Available mirtazapine 15 mg tablet TAKE 1 TABLET BY MOUTH EVERY NIGHT AT BEDTIME active Not Available Not Available No t Available estradiol 0.5 mg tablet TAKE 1 TABLET BY MOUTH DAILY active Not Available Not Available No t Available methylpredn isolone 4 mg tablets in a dose pack FOLLOW PACKAGE DIRECTION S 10/14 completed Not Available Not Available Not Available albuterol sulfate HFA 90 mcg/actuati on aerosol inhaler INHALE 1 PUFF 4 TIMES A DAY active Not Available Not Available No t Available bromphenira mine-pseudo ephedrine-D M 2 mg-30 mg-10 mg/5 mL oral syrup TAKE 10 ML BY MOUTH EVERY 4 TO 6 HOURS NEEDED FOR COLD SYMPTOMS active Not Available Not Available No t Available ondansetron 4 mg disintegrat ing tablet DISSOLVE 1 TABLET ON THE TONGUE TWICE DAILY FOR 5 DAYS FOR NAUSEA OR VOMITING active Not Available Not Available No t Available cefdinir 300 mg capsule TAKE 1 CAPSULE BY MOUTH EVERY 12 HOURS 10/14 completed Not Available Not Available Not Available metformin ER 500 mg tablet,exte nded release 24 hr TAKE 2 TABLETS TWICE DAILY active Not Available Not Available No t Available amoxicillin 875 mg-potassiu m clavulanate 125 mg tablet TAKE 1 TABLET BY MOUTH TWICE DAILY FOR 10 DAYS 10/14 completed Not Available Not Available Not Available ceftriaxone 2 gram solution for injection active Not Available Not Available No t Available amoxicillin 500 mg-potassiu m clavulanate 125 mg tablet TAKE 1 TABLET BY MOUTH THREE TIMES DAILY WITH FOOD FOR 7 DAYS 10/14 completed Not Available Not Available Not Available hydroxyzine pamoate 25 mg capsule TAKE 1 CAPSULE THREE TIMES DAILY NEEDED FOR ITCHING 10/14 completed Not Available Not Available Not Available rosuvastati n 20 mg tablet TAKE 1 TABLET BY MOUTH DAILY 10/14 completed Not Available Not Available Not Available rosuvastati n 40 mg tablet TAKE 1 TABLET BY MOUTH EVERY NIGHT AT BEDTIME active Not Available Not Available No t Available bupropion HCl XL 150 mg 24 hr tablet, extended release TAKE 1 TABLET BY MOUTH DAILY active Not Available Not Available No t Available nitrofurant oin monohydrate /macrocryst als 100 mg capsule TAKE 1 CAPSULE BY MOUTH EVERY 12 HOURS FOR 7 DAYS WITH MEAL/FOOD 10/14 completed Not Available Not Available Not Available duloxetine 60 mg capsule,del ayed release TAKE 1 CAPSULE BY MOUTH DAILY active Not Available Not Available No t Available pregabalin 75 mg capsule TAKE 1 CAPSULE BY MOUTH TWICE DAILY active Not Available Not Available No t Available levothyroxi ne 100 mcg capsule take one tablet daily by mouth before food 2021 active Not Available Not Available Not Avai lable Linzess 72 mcg capsule TAKE 1 CAPSULE BY MOUTH EVERY DAY active Not Available Not Available No t Available rosuvastati n 10 mg sprinkle capsule active Not Available Not Available Not Available Breztri Aerosphere 160 mcg-9mcg-4. 8mcg/actuat ion HFA aerosol inhaler INHALE 2 PUFFS BY MOUTH TWICE DAILY active Not Available Not Available No t Available Gemtesa 75 mg tablet Take 1 tablet every day by oral route for 30 days. active Not Available Not Available No t Available Vitals Date Recorded Body height Body mass index (BMI) Body weight Body temperature Provider Name and Address Organization Details Last Updated DateTime 12/16/2024 172.72 cm 24 kg/m2 04211.59 g 97.6 [degF] Renea Sutton [facility] & [place] 12/16/2024 09:27:33 Date Recorded Body height Body mass index (BMI) Body weight Body temperature Provider Name and Address Organization Details Last Updated DateTime 10/14/2024 172.72 cm 24 kg/m2 63711.59 g 97.6 [degF] Dewayne Pitts [facility] & [place] 10/14/2024 10:11:28 Social History None recorded. Functional Status Question Answer Note LastModified by Organization D etails LastModified Time What is your level of alcohol consumption? None [email or web address] Information not available 10/14/2024 Mental Status None recorded. Family History Relationship Description Onset Age of this Age Resolved Age Notes LastModified by Organization Details LastModified Time Brother No current problems or disability [email or web address] Not available 10/14 10:13:13 Mother No current problems or disability [email or web address] Not available 10/14 10:13:11 Sister No current problems or disability [email or web address] Not available 10/14 10:13:16 Father Myocardial infarction DEC [email or web address] Not available 10/14 10:13:30 Medical History No medical history recorded. Gynecological HistoryNo gynecological history recorded. Obstetrics History GPAL:G 0 P 0 0 0 0 Past Encounters Encounter ID Performer Location Encounter Start Date Encounter Closed Date Diagnosis/Indication Diagnosis SNOMED-CT Code Diagnosis ICD10 Code Diagnosis Note [id number] Mark Corral Jr, MD [facility] Urology [address] [address] 10/14/2024 09:53:41 10/14/2024 10:26:55 Occlusion of ureter due to calculus 78003280 N13.2 patient with history of an obstructin g right ureteral stone causing urosepsis. She underwent initial stenting in August and cinched up a course of antibiotic s and then underwent stone removal on September 25. She returns today and is doing well. We discussed causes of kidney stones and discussed measures to decrease her risk including hydration and low oxalate diet. Urge incon tinence of urine 29025312 N39.41 patient with new complaint today of urinary incontinen ce associated with urge and to a lesser degree stress. She wears 2 light pads per day. He drinks a lot coffee and tea during the day. Samples of Gemtesa were given to take daily and we discussed caffeine restrictio n. She will return in 8 weeks in follow-up. [id number] Mark Corral Jr, MD [facility] Urology [address] [address] 12/16/2024 09:24:03 12/16/2024 09:53:57 Urge incontinence of urine 52637108 N39.41 patient with new complaint today of urinary incontinen ce associated with urge and to a lesser degree stress. Patient has responded very well to the Gemtesa daily. She is also decreased her significan t amount of caffeine. She is pleased with the current results. She is continue the Gemtesa. Female str ess incontinence 70778606 N39.3 patient with mild stress incontinen ce. We discussed Kegel exercises to help. Health Concerns Section Related Observation LastModified by Organization Detai ls LastModified Time None Recorded Concern Status LastModified by Organization Details LastModified Time None Recorded Advance Directives Directive None Recorded Payers Insurance Date Sequence Insurance Name Policy Number Policy Sommers Covered Member ID Sommers Member ID Guarantor Name 01/16/2022 1 [place]MEDIC[place]PLACEMENT H[place] [id number] Aniyah Warren [id number] Aniyah Warren 01/16/2022 2 [place] Aniyah Warren [id number] Aniyah Warren 01/16/2022 2 [facility] - FFS/TRADITIONA L Aniyah Adamsic [id number] Aniyah L Bryanic 01/16/2022 1 [place]IT[place] Aniyah Adamsic [id number] Aniyah Adamsic 12/13/2024 2 [place]FS/TRADITIONA L Aniyah Adamsic [id number] Aniyah Adamsic 09/24/2024 1 [employer] (MEDICARE REPLACEMENT/AD VANTAGE - HMO) Aniyah L Bryanic [id number] Aniyah L Bryanic 12/13/2024 1 [employer]NA - [place]OLD PLUS (MEDICARE REPLACEMENT/AD VANTAGE - HMO) Aniyah L Bryanic [id number] Aniyah L Bryanic Notes Date Note Type Note Provider Name and Address Organization Details Recorded Time 10/14/2024 text/html patient is a 59-year-old white female with history of urosepsis status post stenting during her urosepsis and then she underwent right ureteroscopy, laser lithotripsy stone extraction and right stent removal on September 25. Comes in today in follow-up. She states she is feeling well and no postop problems.Patient does new complaint today of urinary incontinence. She states her symptoms are mainly with urgency but she may have a slight leak with laughing. She has not been treated for urge incontinence in the past. She states a significant amount of caffeine intake with coffee and tea through the day. Mark Corral Jr, MD [address] [place] [address], [facility] [address], [place], [address], [facility] 10/14/2024 12:58:37 12/16/2024 text/html patient is 59-year-old white female with history of ureteral stone status post stone extraction in September. She returns today in follow up for some urinary incontinence. She was placed on Gemtesa at our last visit she states that this is were very well she is very pleased. She has a mild amount of stress incontinence as well. Mark Corral Jr, MD [address] [place] [address], [address], [place], [address], [facility] 12/16/2024 13:05:14 OBGyn Episode No OBEpisode recorded.
== END 2025-04-20 23:59 | disposition home or self-care (01) ==
LOC: LAB.DROPOF 04-21 09:50
PROVIDERS: PCP Nurse Practitioner Family; Visit Provider Nurse Practitioner Family
DX: E03.9 Hypothyroidism, unspecified (principal); E78.5 Hyperlipidemia, unspecified; E11.9 Type 2 diabetes mellitus without complications
CPT/HCPCS: 80053; 80061; 83036; 84443; 85025

== ENCOUNTER 2025-07-02 13:13 | Outpatient (CLI) | payer MEDICARE, MEDICAID, SELFPAY ==
--- OUTSIDE RECORDS SUMMARY | 2025-07-02 13:15 | XMS_ITS | Clinical Summary ---
Author Organization Healthcare Address [address] [place] [address] Care Team Providers Care Mold Maker Helper Name Role Phone Jb Wayne Primary Care Provider [phone] Family History Medical History Relation Name Comments [...] Health Maintenance Due Date Last Done Comments [facility]-Depression Screening 1966 [facility]-Infant/Child/Adol SDOH Screenings 1966 [facility]- SDOH Screenings 1984 [facility]-Adult SDOH Screenings 1984 [facility]-DTaP,Tdap,and Td Vaccine s (1 - Tdap) 1985 [facility]-Hepatitis B Vaccines (1 of 3 - 19+ 3-dose series) 1985 [facility]-Pap Smear 08/03/2005 08/03/2002 [facility]-Cervical Cancer Screening 08/03/2007 [facility]-HPV/Cotest 08/03/2007 08/03/2002 CT Colonography 2011 Colonoscopy 2011 FIT-DNA 2011 FIT 2011 FOBT 2011 Sigmoidoscopy 2011 [facility]-Colorectal Cancer Screening 2011 [facility]-Pneumococcal Vaccine: 50 + Years (1 of 1 - PCV) 2016 [facility]-Zoster Vaccines (1 of 2) 2016 QAE-SRAFK-25 Vaccine (1 - 20 24-25 season) 2024 [facility]-Influenza Vaccine (#1) 2025 HPV Vaccines Aged Out No longer [...] Procedure Name Priority Date/Time Associated Diagnosis Comments CYTO DATA CONVERSION Routine 08/03/2002 12:00 AM EDT from Last 3 Months or Most Recently Relevant to Health Maintenance Results * Cytology (08/03/2002 12:00 AM EDT) 08/03/2002 08/04/2002 12: 59 PM EDT Narrative SUNQUEST - 08/10/2002 10:53 AM EDT [facility] MR #: [id number] [facility] [address] [place], [place] [address] 1965 (Age: 37) FW Collect Date: 08/03/2002 00:00 Receipt Date: 08/04/2002 12:59 Page 1 DEPARTMENT OF PATHOLOGY AND LABORATORY MEDICINE CYTOPATHOLOGY REPORT Email: [email or web address] ATTENDING MD/Practitioner: Barb Lennon MD Service: [facility] Location: [facility] Reported: 08/10/2002 10:53 Collected: 08/03/2002 00:00 INTERPRETATION [...] results is suggested (please call Microbiology at [phone] for results). CLINICAL INFORMATION: Menstrual History: Postmenopausal Date of Last Menstrual Period: {Not Provided} Other Clinical Conditions: Tobacco user SPECIMEN DESCRIPTION: A: THIN PREP (CERVICAL/VAGINAL) THIN PREP PROCESS CELLULAR ENHANCEMENT ICD: V76.2 CERVIX, SPECIAL SCREENING FOR MALIGNANT NEOPLASM F: A; THIN SCRN [id number] SNOMED CODES: A; [id number] [id number] [id number] M- [id number] In cases where a pathologist has signed out the report, the service has been rendered in part by a resident. The signing pathologist has performed and is responsible for the reported pathologic evaluation. Mariann Lennon MD LAB PATHOLOGY ORDERABLES Fi nal Result SUNVycon from Last 3 Months or Most Recently Relevant to Health Maintenance Care Teams Mold Maker Helper Relationship Specialty Start Date [place] [address] PCP - General 03/17/21
--- OUTSIDE RECORDS SUMMARY | 2025-07-02 13:15 | XMS_ITS | Clinical Summary ---
Author Organization [employer] ([place], [place], [place], [place]) Address [address] [place] [address] Care Team Providers Care [employer] Retailer Sales Consultant Name Role Phone [facility], Provider Not In The System Primary Care [...] drink = 0.6 oz pur e alcohol) Family and Community Support Answer Salbador e Recorded Help with Day to Day Activities Not on file 03/19/2024 Feeling Lonely or Isolated Not on file 03/19 Educational Attainment Answer Date Rey rded Speak language other than [place] Citizen at home Not on file 03/19/2024 Want help with school or training Not on file 03/19/2024 Substance Use Answer Date Recorded Used [...] 1966 Sigmoidoscopy 1966 Depression Screening (12+) 1978 HIV Screening 1981 Hepatitis C Screening 1984 Pneumococcal 50+ years (1 of 2 - PCV) 1985 Pap Smear 1987 Breast Cancer Screening 2006 Lipid Panel 2011 Shingles Vaccine (Zoster) (1 of 2) 2016 Medicare Initial AWV [id number] 11/05/2023 COVID-19 VACCINE ( season) 07/05/202404/2021, 02/09/2021 Tobacco Cessation Counseling and Screening (12+) 04/09/2025 04/09/2024 Influenza Vaccine (#1) 2025 DTAP/TDAP/TD VACCINES (2 - Td or Tdap) 02/20/2031 Insurance [place] [address] Care Teams At[employer] Retailer Sales Consultant Relationship Specialty Start Date End Date [facility], Provider Not In The System, [place] [address] PCP - General 04/09/24 Phillip Amanda MD [address] [facility] [address] [place] [address] Cardiology 04/09/24
--- OUTSIDE RECORDS SUMMARY | 2025-07-02 13:15 | XMS_ITS | Referral Summary ---
Author Organization [employer] ([place], [place], [place], [place]) Address [address] [place] [address] Care Team Providers Care International First Officer Name Role Phone [facility], Provider Not In The System Primary [...] Date Rey rded Speak language other than [place] at home Not on file 03/19/2024 Want [...] Plan of Treatment Not on file Insurance MEDICARE HMO Care Teams International First Officer Relationship Specialty Start Date End Date [facility], Provider Not In The System, [place] [address] PCP - General 04/09/24 [place] [address] [place] [address] [place] [address] [facility] 04/09/24
--- NOTE | 2025-07-02 13:30 | MM_ITS ---
PROCEDURE INFORMATION: Exam: MG Bilateral Screening 3D Mammography Exam date and time: 07/02/2025 1:26 PM Age: 60 years old Clinical indication: Screening mammogram TECHNIQUE: Imaging protocol: Bilateral Screening tomosynthesis and 2D mammography including computer-aided detection (CAD) when performed. COMPARISON: 1. MG MM DIG SCREENING MAMM BI W/CAD 06/22/2024 1:10 PM 2. MG JOVANNY DIAG MAMMO W/CAD BILAT 02/27/2021 1:45 PM 3. MG JOVANNY DIAG MAMMO W/CAD RT 06/15/2020 11:02 AM 4. MG JOVANNY DIAG MAMMO W/CAD BILAT 10/19/2019 10:54 AM FINDINGS: MAMMOGRAPHY: Breast composition: The breast is heterogeneously dense, which may obscure small masses. Mass: None. Architectural distortion: No new or suspicious architectural distortion. Calcifications: No new or suspicious calcifications are present Asymmetric density: No new or suspicious asymmetric density is present Skin thickening: None. Axillary adenopathy: None. IMPRESSION: No mammographic evidence of malignancy. Recommend annual screening mammography unless otherwise clinically indicated. ASSESSMENT: BI-RADS category 1: Negative.
--- NOTE | 2025-07-02 14:00 | CT_ITS ---
FINAL REPORT TECHNIQUE: Thin section axial images were obtained from the lung apices to the upper abdomen by computed tomography. Reformatted images were obtained and reviewed. This study was performed with techniques to keep radiation doses al low as reasonably achievable (ALARA). Individualized dose reduction techniques using automated exposure control or adjustment of mA and/or kV according to the patient's size were employed. CLINICAL HISTORY: lung cancer screening former smoked quit 1 week ago. 1 ppd x 45 years COMPARISON: 06/22/2024 FINDINGS: CHEST CT LOW DOSE 60-year-old female, former smoker for 1 week, [id number] history CTDI vol (mGy): 2.90 DLP (mGy-cm): 103.16 There is no axillary adenopathy. There is no mediastinal or hilar mass or adenopathy. The heart is normal in size. There is no pericardial or pleural effusion. There are mild changes of centrilobular emphysema. Lung window images demonstrate no suspicious infiltrate or nodule. Limited images of the upper abdomen are unremarkable. IMPRESSION: Lung-RADS category 1. Recommend 12 month follow up low dose chest CT. Reviewed, Interpreted and Dictated by Flo Freeman MD Transcribed by Karime Celis Authenticated and [facility]
== END 2025-07-02 23:59 | disposition home or self-care (01) ==
LOC: RAD 13:13
PROVIDERS: PCP Nurse Practitioner Family; Visit Provider Nurse Practitioner Family
DX: Z12.31 Encounter for screening mammogram for malignant neoplasm of breast (principal); Z12.2 Encounter for screening for malignant neoplasm of respiratory organs; J43.2 Centrilobular emphysema; R92.333 Mammographic heterogeneous density, bilateral breasts; Z87.891 Personal history of nicotine dependence
CPT/HCPCS: 71271; 77063; 77067

== ENCOUNTER 2025-07-30 10:08 | Outpatient (CLI) | payer MEDICARE, MEDICAID, SELFPAY ==
[2025-07-30 21:17] LABS: Hematocrit 43.9 % (37.0-47.0); Hemoglobin 14.7 g/dL (12.2-16.2); Immature Granulocytes % 0.1 %; Mean Corpuscular HGB Conc 33.5 g/dL (31.8-35.4); Mean Corpuscular Hemoglobin 32.1 pg (27.0-31.2); Mean Corpuscular Volume 95.9 fl (81-99); Nucleated Red Blood Cells % 0 %; Platelet Count 293 K/mm3 (142-424); Red Blood Count 4.58 M/mm3 (4.20-5.40); Red Cell Distribution Width-SD 40.4 fL; White Blood Count 7.2 K/mm3 (4.8-10.8)
[2025-07-30 21:33] LABS: Hemoglobin A1C 6.2 % (4.0-6.0)
[2025-07-30 21:46] LABS: Alanine Aminotransferase 14 U/L (12-78); Albumin Level 4.4 g/dl (3.5-5.0); Albumin/Globulin Ratio 2.0 (1.1-1.8); Alkaline Phosphatase 79 U/L (38-126); Anion Gap 14.2 mEq/L (5-15); Aspartate Amino Transferase 24 U/L (14-36); Bilirubin,Total 1.0 mg/dl (0.2-1.3); Blood Urea Nitrogen 20 mg/dl (7-17); Calcium 9.6 mg/dl (8.4-10.2); Carbon Dioxide 24 mmol/L (22.0-30.0); Chloride 102 mmol/L (98-107); Cholesterol 135 mg/dl (140-200); Creatinine,Serum 0.80 mg/dl (0.52-1.04); Estimated Glomerular Filt Rate 73 ml/min (>60); GFR (African American) 89 ML/MIN (>60); Globulin 2.2 g/dL (1.3-3.2); Glucose 95 mg/dl (74-100); HDL Cholesterol 45 mg/dl (40-60); Potassium 4.2 mmoL/L (3.5-5.1); Sodium 136 mmol/L (136-145); Total Protein,Serum 6.6 g/dl (6.3-8.2); Triglycerides 154 mg/dl (30-150)
[2025-07-30 22:16] LABS: Thyroid Stimulating Hormone 0.32 uIU/mL (0.465-4.68)
== END 2025-07-30 23:59 ==
LOC: LAB.DROPOF 08-02 11:13
PROVIDERS: PCP Nurse Practitioner Family; Visit Provider Nurse Practitioner Family
DX: E03.9 Hypothyroidism, unspecified (principal); E11.9 Type 2 diabetes mellitus without complications; E78.5 Hyperlipidemia, unspecified
CPT/HCPCS: 80053; 80061; 83036; 84443; 85025

== ENCOUNTER 2025-10-22 10:33 | Outpatient (CLI) | payer MEDICARE, MEDICAID, SELFPAY ==
--- OUTSIDE RECORDS SUMMARY | 2025-08-27 19:46 | XMS_ITS | Encounter Summary ---
Author Organization [facility] Address [address] 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 Name Role Phone System, Provider Not In MD Primary Care Provider Unavailable Jb Wayne Unavailable Reason for Referral * Consultation (Routine) - Authorized Specialty Diagnoses / Procedures Referred By Nikko laurent Referred To Contact Neurology Diagnoses Acute intra-cranial hemorrhage (CMS/HCC) Alfredo Richardson APRN [address] [address] Phone: tel: fax: Referral ID Status Reason Start Date Expiration Date Visits Requested Visits Authorized [id number] Authorized Specialty Services Required 03/02/2027 1 1 Scheduling Instructions Follow up with [facility] Stroke Neurology in 3 months for continued stroke care. * Consultation (Routine) - Authorized Specialty Diagnoses / Procedures Referred By Contwoody laurent Referred To Contact Cardiology Diagnoses Acute intra-cranial hemorrhage (CMS/HCC) Dora Villegas MD [address] [address] Phone: tel: fax: Referral ID Status Reason Start Date Expiration Date Visits Requested Visits Authorized [id number] Authorized Specialty Services Required 03/01/2027 1 1 Reason for Visit * Reason Comments Stroke Alert Red * Auth/Cert (Routine) Specialty Diagnoses / Procedures Referred By Contac t Referred To Contact Diagnoses Acute intra-cranial hemorrhage (CMS/HCC) Sergey Stern MD [address] [address] Phone: tel: fax: [facility] [address] [place] [address] Phone: tel: Referral ID Status Reason Start Date Expiration Date Visits Re quested Visits Authorized [id number] 1 1 Encounter Details Date Type Department Care Team (Latest Contact Info) Description 08/27/2025 8:46 PM EDT - 09/09/2025 2:55 PM EST Hospital Encounter [facility] [address] [place] [id number] Shahida Fernando DO [address] [place] [phone] Vinicius Bentley MD [address] [place] [id number] Sergey Stern MD [address] [address] Rylee Gupta MD [address] [address] Dora Villegas MD [address] [address] Shane Shook MD [address] [place] [address] Acute intra-cranial hemorrhage (CMS/HCC) (Primary Dx); Intracranial hemorrhage (CMS/HCC) Discharge Disposition: Rehab Facility Social History Tobacco Use Types Packs/Day Years Used Date Smoking Tobacco: Former Cigarettes 0 Q uit: 06/19/2025 Smokeless Tobacco: Never Tobacco Cessation:Counseling Given: Not Answered Alcohol Use Standard Drinks/Week Comments Defer 0 (1 standard drink = 0.6 oz pur e alcohol) Humiliation, Afraid, Rape, and Kick questionnair e Answer Date Recorded Within the last year, have y ou been afraid of your partner or ex-partner? No 10/04/2025 Within the last year, have y ou been humiliated or emotionally abused in other ways by your partner or ex-partner? No Within the last year, have y ou been kicked, hit, slapped, or otherwise physically hurt by your partner or ex-partner? No 10/04/2025 Within the last year, have y ou been raped or forced to have any kind of sexual activity by your partner or ex-partner? No 10/04/2025 Social Connection and Isolation Panel Answer Date Recorded In a typical week, how many times do you talk on the phone with family, friends, or neighbors? Patient unable to answer 08/30/2025 How often do you get togethe r with friends or relatives? Patient unable to answer 08/30/2025 How often do you attend [facility] or hoahaoism services? Patient unable to answer 08/30/2025 Do you belong to any clubs o r organizations such as anglican groups, unions, fraternal or athletic groups, or school groups? Patient unable to answer 08/30/2025 How often do you attend meet ings of the clubs or organizations you belong to? Patient unable to answer 08/30/2025 Are you , , di vorced, , never , or living with a partner? Patient unable to answer 08/30/2025 AUDIT-C Answer Date Recorded Q1: How often do you have a drink containing alcohol? Patient unable to answer 08/30/2025 Q2: How many drinks containi ng alcohol do you have on a typical day when you are drinking? Patient unable to answer Q3: How often do you have si x or more drinks on one occasion? Patient unable to answer 08/30/2025 Overall Financial Resource Strain (CARDIA) Answe r Date Recorded How hard is it for you to pa y for the very basics like food, housing, medical care, and heating? Patient unable to answer 08/30/2025 [facility] - Occupational Stress Questionnaire Answer Date Recorded Do you feel stress - tense, restless, nervous, or anxious, or unable to sleep at night because your mind is troubled all the time - these days? Patient unable to answer 08/30/2025 Exercise Vital Sign Answer Date Recorde d On average, how many days pe r week do you engage in moderate to strenuous exercise (like a brisk walk)? Patient unable to answer 08/30/2025 On average, how many minutes do you engage in exercise at this level? Patient unable to answer 08/30/2025 Hunger Vital Sign Answer Date Recorded Within the past 12 months, y ou worried that your food would run out before you got the money to buy more. Never true 10/04/20 25 Within the past 12 months, t he food you bought just didn't last and you didn't have money to get more. Never true 10/04/2025 PRAPARE - Transportation Answer Date Re corded In the past 12 months, has l ack of transportation kept you from medical appointments or from getting medications? Yes 11/2024 In the past 12 months, has l ack of transportation kept you from meetings, work, or from getting things needed for daily living? No 10/04/2025 Housing Stability Vital Sign Answer Salbador e Recorded In the last 12 months, was t here a time when you were not able to pay the mortgage or rent on time? No 10/04/2025 In the past 12 months, how m any times have you moved where you were living? 0 10/04/2025 At any time in the past 12 m [facility], were you homeless or living in a snf (including now)? No 10/04/2025 [facility] Utilities Answer Date Recorded In the past 12 months has e electric, gas, oil, or water company threatened to shut off services in your home? No 10/04/2025 Comments No Sex and Gender Information Value Date Recorded Sex Assigned at Not on file Legal Sex Female 8:52 PM EDT Gender Identity Not on file Sexual Orientation Not on file documented as of this encounter Last Filed Vital Signs Vital Sign Reading Time Taken Comments Blood Pressure 125/85 09/09/2025 8:22 AM EST Pulse 70 09/09/2025 8:22 AM EST Temperature 36.6 C (97.9 F) 09/09/2025 4:00 AM EST Respiratory Rate 12 09/09/2025 4:00 AM EST Oxygen Saturation 96% 09/09/2025 4:00 AM EST Inhaled Oxygen Concentration - - Weight 69.5 kg (153 lb 3.5 oz) 09/06/2025 6:00 A M EST Height 172.7 cm (5' 8 ) 08/28/2025 2:30 AM EDT Body Mass Index 23.3 08/28/2025 9:50 PM EDT documented in this encounter Functional Status * Question Answer Date of Assessment Author Precautions Fall risk 09/09/2025 2:00 PM EST Cecilia Jay RN * AUDIT-C Score Answer Date of Assessment Author -1 08/30/2025 6:59 AM EDT Christiano Hernandez RN * Question Answer Date of Assessment Author Q1: How often do you have a drink containing alcohol? Patient unable to answer 08/30/2025 6:59 AM MARYANNET Yovani Hernandez RN Q2: How many drinks containing alcohol do you have on a typical day when you are drinking? Patient unable to answer 08/30/2025 6:59 AM MARYANNET Yovani Hernandez RN Q3: How often do you have six or more drinks on one occasion? Patient unable to answer 08/30/2025 6:59 AM MARYANNET Yovani Hernandez RN * Question Answer Date of Assessment Author Precautions Fall risk 09/09/2025 2:00 PM EST Cecilia Jay RN * Calculated C-SSRS Risk Score (Lifetime/Recent) Answer Date of Assessment Author No Risk Indicated 09/03/2025 8:00 PM EDT Doreen Rice RN * Question Answer Date of Assessment Author 1. Wish to be (Past 1 Month) No 09/03/2025 8:00 PM EDT Skylar Powers RN 2. Non-Specific Active Suici zaire Thoughts (Past 1 Month) No 09/03/2025 8:00 PM EDT Christiano Powers RN 6. Suicidal Behavior (Lifetime) No 8:00 PM EDT Doreen Powers RN documented as of this encounter Mental Status * Question Answer Entry Date Author Precautions Fall risk 09/09/2025 2:00 PM Cecilia Hicks RN documented in this encounter Medications at Time of Discharge acetaminophen (Tylenol) 500 MG tablet Take 2 tablets by mouth every 6 hours as needed for headaches or pain. 09/09/2025 albuterol 108 (90 Base) MCG/ACT inhaler Inhale 2 puffs 4 times a day. carvedilol (Coreg) 12.5 MG tablet Take 1 tablet by mouth 2 times a day. 09/09/2025 dantrolene (Dantrium) 25 MG capsule Take 1 capsule by mouth daily. 09/10/2025 DULoxetine (Cymbalta) [address] capsule Take 1 capsule by mouth daily. Do not crush or chew. levothyroxine (Synthroid, Levoxyl) 100 MCG tablet Take 1 tablet by mouth every morning. lisinopril 5 MG tablet Take 1 tablet by mouth daily. 09/10/2025 melatonin tablet Take 2 tablets by mouth at night as needed for sleep. 09/09/2025 mirtazapine (Remeron) 30 MG tablet Take 1 tablet by mouth nightly. polyethylene glycol (Miralax) 17 g packet Take 17 g by mouth 2 times a day. 09/09/2025 pregabalin (Lyrica) 25 MG capsule Take 1 capsule by mouth 2 times a day as needed (headache). 09/09/2025 rosuvastatin (Crestor) 40 MG tablet Take 1 tablet by mouth daily. senna-docusate (Elda-Colace) 8.6-50 MG tablet Take 2 tablets by mouth 2 times a day. 09/09/2025 traZODone (Desyrel) 50 MG tablet Take 1 tablet by mouth at night as needed for sleep. 09/09/2025 documented as of this encounter Miscellaneous Notes * Addendum Note - Ronna Ricketts RN - 09/09/2025 2:55 PM ESTEncounter addended by: Ronna Ricketts RN on: 10/20/2025 4:52 PM Actions taken: Flowsheet accepted * Cecilia Knowles RN - 09/09/2025 12:48 PM EST Images from the original note were not included. [id number] Effects of a Stroke on the Brain and Body When blood supply is cut off from the brain, cells start to from lack of oxygen. Within minutes, skills such as reasoning, speech, and movement of the arm, leg, or face may be affected. The type of skills and the amount of loss depend on which part of the brain was affected and how much tissue was damaged. Every person is affected by stroke differently. ? The brain is the body?s control center. It handles communication, motor, sensory, and processing functions. ? The cerebellum controls the body?s coordination and balance. ? The brain stem links the brain and the spinal cord. It also handles basic body functions. ? The spinal cord carries messages between the brain and the body. A stroke causes lost skills Each part of the brain has a role related to a function in the body. Damage to any part of the brain limits its ability to carry out its role. This results in lost skills or changes in function, and even in personality. Some parts of the brain and its related functions that may be affected by stroke are as follows: ? The front of the brain houses reasoning and the ability to control emotions. Personality lives here. ? The left side of the brain controls the right side of the body. It also handles speech, language,reading, and writing. ? The right side of the brain controls the left side of the body. ? The back of the brain controls vision. ? The brain stem handles breathing and swallowing. Last Reviewed Date: 2025 00:00:00 ?? [employer]. All rights reserved. This information is not intended as a substitute for professional medical care. Always follow your healthcare professional's instructions. * Jsoe Carter - Cecilia Sneed RN - 09/09/2025 12:47 PM EST Images from the original note were not included. [id number] What Is Hemorrhagic Stroke? The brain needs a constant supply of blood to work well During a stroke, blood stops flowing to part of the brain. The affected area is damaged. Its functions are harmed or even lost. Most strokes are caused by a blockage in a blood vessel that supplies the brain (ischemic stroke). They can also occur if a blood vessel in the brain breaks open (ruptures). This is a hemorrhagic stroke. The carotids are large arteries that carry blood from the heart to the brain. How a hemorrhagic stroke occurs Hemorrhagic stroke occurs when a blood vessel in the brain ruptures. This lets blood spill into or build up in nearby brain tissue. The extra blood presses on those brain cells. It can damage them oreven cause them to . Other brain cells because their normal blood supply is cut off because of high pressure in the skull. Blood from a ruptured artery puts pressure on the brain and damages brain cells. Last Reviewed Date: 2024 00:00:00 ?? [id number] [employer]. All rights reserved. This information is not intended as a substitute for professional medical care. Always follow your healthcare professional's instructions. * Deloris Longoria - Bridgett Rangel - 09/09/2025 12:46 PM EST Speech Language Pathology TREATMENT NOTE Patient Name: Lyla Warren Age: 60 y.o. Today's Date: 09/09/2025 [employer] OFF[employer] Treatment Area(s): Swallow Treatment Time Dysphagia: 10 minutes Treatment Time Speech/Language/Cognition: 0 minutes Subjective Pt awake/alert and sitting upright in chair. Pt eating lunch upon [employer] entry. No family present at bedside. Objective Current diet: Dietary Orders (From admission, onward) Start Ordered 09/07/25 1558 Adult diet Diet texture: Regular Diet effective now Comments: Food preferences: fruit, pancakes, soup/salad, sandwiches Regular diet (IDDSI Level 7) and Thin liquids (IDDSI Level 0) via single cup/straw drinks, liquid wash as needed, meds up to whole in puree/pudding, oral care q6h. References: IDDSI Diet Texture Guide Question: Diet texture Answer: Regular 09/07/25 1557 09/05/25 1103 Oral nutrition supplements Until discontinued Question Answer Comment Supplement frequency: All meals All meals supplement: Boost Very High Calorie Vanilla All meals supplement: Boost Very High Calorie [place] All meals supplement: Gelatein Plus [place]arez Quantity for All Meals of Boost Very High Calorie - Vanilla One Quantity for All Meals of Boost Very High Calorie - [place] One Quantity for All Meals of Gelatein Plus [place]arez One 09/05/25 1104 Alternate means of nutrition present: n/a Respiratory Status: room air Vitals: 09/09/25 0822 BP: 125/85 Pulse: 70 Resp: Temp: SpO2: Lab Results Component Value Date WBC 9.75 09/07/2025 Lab Results Component Value Date PLT 407 (H) 09/07/2025 PLT 393 (H) 09/05/2025 PLT 392 (H) 09/03/2025 Pt education re: swallowing strategies PO intake of lunch tray Assessment Pt consuming lunch tray of IDDSI level 7 regular food consistencies and IDDSI level 0 thin liquids via straw. Pt with no overt s/sx of aspiration at bedside. Pt education provided re: swallowing strategies from MBS results. Strategies discussed included: single sips at a time, liquid wash + cleansing swallow following regular solids, cough + swallow to clear residue following sequential sips of thin liquids if pt desires sequential sips. Pt reports understanding of swallowing strategies. Pt reports no further questions. Prognosis: Good Patient Education was provided via verbal instruction to patient re: swallowing strategies. Will continue to provide education in subsequent sessions as warranted. Plan / Recommendations Diet recommendations: Up to Regular diet (IDDSI Level 7) and Thin liquids (IDDSI Level 0) via single drinks, straws okay, liquid wash + cleansing swallow after regular solids, meds up to whole in puree/pudding, oral care q6h. If pt desires thin via sequential sips recommend cough to clear possible vestibular residue. Therapy Frequency: 1x week for 2 weeks F/u Imaging: if clinically indicated Goals: - Pt will demonstrate independent recall of single drink strategy or cough after sequential sips ofthins without cues. - Pt will demonstrate adequate tolerance of Regular diet and Thin liquids without dysphagia-relatedpulmonary compromise. - Participate in exercise-based dysphagia therapy to improve swallowing physiology. - Participate in oral infection control program. Cosigned by Carley Buck at 09/09/2025 1:58 PM EST Associated attestation - Carley Buck - 09/09/2025 1:58 PM EST Attested by: Carley Buck - 09/09/2025 - 1:58 PM * Discharge Summary - Alfredo Richardson APRN - 09/09/2025 11:45 AM EST Stroke Discharge Summary Hospitalization Admit Date/Time: 08/27/2025 8:46 PM Admitting Attending: Sergey Stern Discharge Date: 09/09/25 Discharge Attending Physician: Shane Shook MD PCP name and Address: System, Provider Not In, [address] [place] [address] / [place] [id number] Referring provider name and address: No referring provider defined for this encounter. Discharge Diagnosis Acute intra-cranial hemorrhage (CMS/HCC) Active Hospital Problems Uremia Thrombocytosis Impaired mobility and ADLs Anxiety and depression Hyponatremia History of spinal fusion QT prolongation HTN (hypertension) SAH (subarachnoid hemorrhage) Cerebral edema (CMS/HCC) Electrolyte disturbance Feeding difficulty *Acute intra-cranial hemorrhage (CMS/HCC) Reason for Hospitalization (CC and Brief HPI) Chief complaint: Right side weakness and fall at home HPI: Ms. Lyla Warren is a 60-year-old female with medical history significant for hyperlipidemia, DM type II, hypothyroidism, and an ACDF (C4-C5) on 08/26/2025 at [facility]. She presented to ED on 08/27/2025 via EMS after a fall at home with right sided weakness. Per chart review, she was taking a shower when she developed right arm weakness and called for family to help. She then developed right leg weakness and fell in the shower. She did not strike her head or lose consciousness. Last known normal 08/27/25 at 1930. [facility] Ms. Lyla Warren is a 60-year-old female with medical history significant for hyperlipidemia, DM type II, hypothyroidism, and ACDF (C4-C5) on 08/26/2025 at [facility]. She presented to ED on 08/27/2025 with right sided weakness, right facial droop, and hemianopia. Her initial NIHSS was 13. Last known normal 08/27/2025 at 7:30 p.m. Thrombolytics were not administered due to IPH. Thrombectomy not indicated due to no large vessel occlusion on imaging. She was diagnosed with an acute posterior left frontal lobe IPH with associated SAH as a result of an initial ischemic stroke d/t ESUS. Her stroke workup is detailed below: Stroke risk factor labs include A1C 6.2, TSH 1.44, LDL 78. Her stroke mechanism is suspected ischemic stroke due to ESUS with subsequent hemorrhagic conversion. CT head showed a posterior left frontal lobe IPH with SAH. CTA head and neck showed no large vessel occlusion, no significant stenosis, however noted concerns for moderate narrowing of left LEEROY. DSA on 08/29/25 showed a left MCA M3 occlusion with corresponding wedge defect and capillary perfusion defect. MRI head w/o contrast showed posterior left frontal lobe IPH w/ adjacent SAH and IVH. Hyperintense signals in right temporal lobe, punctate scattered restricted diffusion in bilateral cerebral hemispheres (right occipital lobe, leftoccipital lobe, left frontal lobe) that could be indicative of acute infarcts. Transthoracic echocardiogram showed LVEF 63%; LV shows concentric remodeling with normal systolic and diastolic function; LA normal in size without evidence of ASD/PFO. PT/OT recommend acute rehab. Dysphagia recommends regular solids with thin liquids. Blood pressure goal for normotension. Sodium goal for normonatremia. PHQ/MoCA unable to be collected secondary to severity of stroke deficits. Secondary stroke risk reduction with rosuvastatin 40mg hs and plan for antiplatelet therapy 21 days post hemorrhage (start date 09/17/2025). Due to concern for embolic nature of initial ischemic stroke, a residential monitor will be placed prior to discharge, and will need to follow up for review in 6 to 8 weeks for review andconsideration of ILR. Her hospitalization was further complicated by hypertension which has been managed with carvedilol 12.25 mg twice daily and lisinopril 5 mg daily for a blood pressure goal of normotension. For dysphagia post stroke, she passed her repeat MBS with recommendations for a regular diet (IDDSILevel 7) and thin liquids (IDDSI Level 0) via single drinks, straws okay, liquid wash + cleansing swallow after regular solids, meds up to whole in puree/pudding, oral care q6h. If the patient desires thins via sequential sips recommend cough to clear possible vestibular residue. Can consider Easy to Chew diet (IDDSI 7) if patient prefers. For her ACDF at [facility] on 08/26/2025, patient has follow-up with Dr. Bedoya (orthopedics department) on 09/09/2025 (notified office of current hospitalization). Additionally, per orthopedic team at [facility], C-collar should be kept in place at all times unless patient is eating, drinking, or showering. She had been placed on gabapentin to assist with post-surgical neuropathicpain, but has been switched to lyrica with reported improvement in symptoms. She maintained a persistent leukocytosis throughout much of her hospitalization and was eventually found to have a UTI. She has now completed a course of Fosfomycin with resolution of leukocytosis. She has remained afebrile and HDS. Medication List .. acetaminophen 500 MG tablet Commonly known as: Tylenol Take 2 tablets by mouth every 6 hours as needed for headaches or pain. albuterol 108 (90 Base) MCG/ACT inhaler Inhale 2 puffs 4 times a day. carvedilol 12.5 MG tablet Commonly known as: Coreg Take 1 tablet by mouth 2 times a day. dantrolene 25 MG capsule Commonly known as: Dantrium Take 1 capsule by mouth daily. Start taking on: September 10, [address] capsule Commonly known as: Cymbalta Take 1 capsule by mouth daily. Do not crush or chew. levothyroxine 100 MCG tablet Commonly known as: Synthroid, Levoxyl Take 1 tablet by mouth every morning. lisinopril 5 MG tablet Take 1 tablet by mouth daily. Start taking on: September 10, 2025 melatonin tablet Take 2 tablets by mouth at night as needed for sleep. mirtazapine 30 MG tablet Commonly known as: Remeron Take 1 tablet by mouth nightly. polyethylene glycol 17 g packet Commonly known as: Miralax Take 17 g by mouth 2 times a day. pregabalin 25 MG capsule Commonly known as: Lyrica Take 1 capsule by mouth 2 times a day as needed (headache). rosuvastatin 40 MG tablet Commonly known as: Crestor Take 1 tablet by mouth daily. senna-docusate 8.6-50 MG tablet Commonly known as: Elda-Colace Take 2 tablets by mouth 2 times a day. traZODone 50 MG tablet Commonly known as: Desyrel Take 1 tablet by mouth at night as needed for sleep. Where to Get Your Medications Information about where to get these medications is not yet available Ask your nurse or doctor about these medications acetaminophen 500 MG tablet carvedilol 12.5 MG tablet dantrolene 25 MG capsule lisinopril 5 MG tablet melatonin tablet polyethylene glycol 17 g packet pregabalin 25 MG capsule senna-docusate 8.6-50 MG tablet traZODone 50 MG tablet Stroke etiology: other known cause ischemic stroke d/t ESUS and subsequent bleed Admission NIHSS: 13 Discharge NIHSS: 11 Admission ICH (if applicable): 0 Neuropsych evaluation: Deficits to severe to complete assessment Modified Chazy score: 4 Moderately severe disability; unable to walk without assistance and unable to attend to own bodily needs without assistance Surgeries and Procedures Procedures performed in this encounter Procedures Critical Care Critical Care IR Anesthesia Request Pertinent Physical Exam At Time of Discharge Physical Exam Constitutional: Patient in no acute distress. Patient appears stated age. C- collar in place Ears, Nose, Mouth, Throat: Mucous membranes appear moist. No appreciable hearing impairment. Nares patent. Eyes: PERRLA @ 3mm, Anicteric sclera. No appreciable conjunctival injection. Cardiovascular: Radial pulse patent. No appreciable murmurs, gallops, or rubs. No appreciably irregular rhythm. No appreciable edema. Respiratory: Clear to auscultation throughout on room air. Symmetric chest expansion. Non-labored breathing. Gastrointestinal: Soft, nontender, nondistended. Normoactive bowel sounds x 4. Genitourinary: No appreciable bladder distention. Musculoskeletal: No appreciable joint swelling. No appreciable joint deformities. No appreciable lower extremity warmth or erythema in either leg. Psychiatric: Appropriate mood and affect. Patient is cooperative. Neurological Examination: Mental Status: Alert and oriented to self. Follows two step commands. Language: Moderate expressive aphasia. Trace dysarthria. Concentration and attention full. Cranial Nerves: Aside from mild right central facial palsy, left quadrantanopsia; no appreciable deficit in cranial nerves II-XII. Motor: Normal tone and bulk throughout. Left upper extremity 4/5. Right upper extremity 1/5. Left lower extremity 4/5. Right lower extremity 1/5. Sensory: Sensation mildly decreased to right upper and lower extremity Coordination: No appreciable limb ataxia. Gait: Deferred due to weakness. Discharge Disposition/Condition Disposition: [facility] Condition: Stable (s/sx potential problems absent or manageable) Test Results Pending At Discharge Follow-Up / Post Discharge Instructions Follow up with PCP as soon as possible for continued comorbidity care. Follow up as below: Outpatient Follow-Up Future Appointments Date Time Provider Department Center 09/09/2025 1:00 PM [facility] 12/09/2025 11:20 AM Hector Fu APRN [facility] [place] Cosigned by Shane Shook MD at 09/09/2025 3:17 PM EST * Progress Notes - Yovani Hernandez RN - 09/09/2025 11:43 AM EST Case Management Discharge Note Lyla Warren 60 y.o. female CSN: [id number] Admission: 08/27/2025 8:46 PM Primary Problem: Acute intra-cranial hemorrhage (CMS/HCC) Primary Cardiology Consultants: Primary Caregiver: Self Assistance Available at Discharge: Availability of Care Givers (#Hours): 24 hours Family/Cardiology Consultants(s) Willingness Assessed to care for patient at home: Yes Family/Cardiology Consultants(s) Readiness Assessed to care for patient at home: Yes Housing Circumstances-Z Codes: Housing Circumstances (select all that apply): Low Income (101-300% Federal Poverty Guidlines) - Z596 Patient Referred to Financial or Community Resources: Discharge Facility/Level of Care Needs: Discharge Facility/Level of Care Needs: 62-Rehab facilty ([facility]-acute rehab) Patient's Choice of Community Agency(s): Patient's Choice of Community Agency(s): [facility]-acute rehab Patient/Family Anticipated Services at Transition: Patient/Family Anticipated Services at Transition: rehabilitation services, insurance case manager ([facility]-acute rehab) DME/Equipment Needed after Discharge: Equipment Currently Used at Home: none Equipment Needed After Discharge: other (see comments) (Defer to facility) Readmission Within the Last 30 Days: Medicare Documentation: Follow-up: [facility] ([facility]) [address] [place] [address] Go today Admission for acute physical rehab. Discharge Transportation: Transportation Anticipated: agency Transportation Home at Discharge: Family/Friend will Provide Has discharge transport been arranged?: Yes What day is the transport expected?: 09/09/25 What time is the transport expected?: 1445 Follow Up Transport: Transportation Needed to Follow up Appoinments: Family/Friend will Provide Additional Comments: Received notification from [facility] liaison, Elif Caicedo, that facility has been notified of insurance approval and can admit pt to Stroke II unit today. Provider informed and confirms that pt remains medically ready for dc. Pt updated at bedside and family notified by phone and both are agreeable. [facility] will provide transportation by w/c van at 1445. Rn, Cecilia Sneed, notified and provided report number ([phone]). DCS faxed to facility at ([phone]). Will remain available to provide assistance as needed throughout the dc process. Yovani Hernandez RN * Progress Notes - Yovani Hernandez RN - 09/09/2025 10:59 AM EST Case Management Adult Progress Note Lyla Warren 60 y.o. female CSN: [id number] Admission: 08/27/2025 8:46 PM Primary Problem: Acute intra-cranial hemorrhage (CMS/HCC) Anticipated Discharge Date: TBD Has Discharge Plans Changed? No Medicare Second Notice: No Medically Ready for Discharge: Ready Now Additional Comments Discussed pt with provider in morning huddle and chart reviewed. Pt remains medically ready. Recs for acute. Pt has been referred to [facility] and is pending insurance approval. Will continue to follow and coordinate dc plan as necessary. CM will make appropriate/ additional referrals if needed and will continue to offer support to patient/family Yovani Hernandez RN * Progress Notes - Judy Moore - 09/09/2025 10:06 AM EST Stroke Team Interdisciplinary Transition of Care Huddle ([facility]LE) Patient: Lyla Celis Care Team: Patient Care Team: System, Provider Not In, MD as PCP - General (Family Medicine) Staff Present: Grants Assistant, Acupressure Therapist, Speech Therapy, Physical/Occupational Therapy, Stroke ARELI, and Stroke Tea Tree Farmer Level of Care: Acute Acute recs; pending insurance approval. Judy Moore 09/09/25 10:06 AM * Progress Notes - Colleen Florence - 09/09/2025 9:22 AM EST Physical Therapy Reassessment Patient Name: Lyla Warren Today's Date: 09/09/2025 PT Discharge Recommendations: Acute rehab Equipment Recommended: Defer to facility History Lyla Warren is 60 y.o. female admitted 08/27/2025 for work-up of Acute intra-cranial hemorrhage (CMS/HCC). Hospital Course 1. Acute intra-cranial hemorrhage (CMS/HCC) 2. Intracranial hemorrhage (CMS/HCC) Procedures Past Medical History Patient has no past medical history on file. Past Surgical History Patient has no past surgical history on file. Precautions Medical Precautions: Spinal Spinal Precautions : C-collar at all times Medical Precautions: SBP < 150,- Consulted [facility] who recommended to reach out to Dr. Bedoya about post op recs and keep cervical collar in place until then. - Per orthopedics at [facility], C-collar should be kept in place, can be removed when eating, drinking and showering. Daughter says that was the same instruction she was given by Dr. Bedoya who performed the procedure. Subjective Pt reports disliking her C-Collar. Pt eager to participate with PT. Participants in Care Family/Caregiver Present: No Mine Motor Operator: Not Applicable PRESENTATION Oxygen None (Room air) Lines and Tubes Female External Urinary Catheter 08/28/25 0230 (Active) Peripheral IV 08/27/25 Posterior;Right Hand (Active) Pre-Session Supine, Head of bed elevated, Lines intact, Bed alarm C-colalr doffed Post-Session Sitting in chair, Chair alarm, Lines intact, RN notified, Call light in reach, SCDs applied C-Collar donned Bracing (if applicable) Orthoses: C-Collar HOME LIVING/SET-UP Lives With Alone Home Type House Home Equipment None PRIOR LEVEL OF FUNCTION Assist at Home No assist required prior to admission (Granddaughters to assist if needed) Level of Mobility Ambulatory- community Mobility [place] Independent gait without device Overall ADL Performance Independent PATIENT/FAMILY GOALS Agreeable to PT POC Objective Pain Pt with c/o pain with RLE mobility. Pt appears to demonstrate hypertonicity to RLE. No numerical value provided. aware. Delirium Screening RASS: Alert and calm Confusion Assessment Method-ICU (CAM-ICU/PCAM-ICU) Feature 1: Acute Onset or Fluctuating Course: Positive Feature 2: Inattention: Positive Feature 3: Altered Level of Consciousness: Negative Feature 4: Disorganized Thinking: Positive Overall CAM-ICU/PCAM-ICU: Positive Cognition Overall Cognitive Status: Impaired Arousal/Alertness: Appropriate responses to stimuli Mood/Behavior: Alert, Confused, Distractible Orientation Level: Oriented to person, Oriented to place Orientation Level Comments: Oriented to name and hospital , choices for month/year. Disoriented to time with choices and cues Single Step Commands: Consistently, With increased time, With repetition Multi-Step Commands: With repetition, With increased time, 50% of the time Method of Communication: Expressive aphasia, Verbal Safety Judgment: Decreased awareness of need for assistance Awareness of Errors: Assistance required to identify errors made, Assistance required to correct errors made Deficit Awareness: Decreased awareness of deficits Attention Span: Attends with cues to redirect Problem Solving: Assistance required to identify errors made Vision: Pt demonstrates L gaze preference and mild R inattention. Pt scans to R with cues. Right Upper Extremity Examination RUE Assessment: Within Functional Limits (PROM - shoulder to 90 degrees to prevent subacromial trauma) Manual Muscle Testing - RUE: (0/5 throughout) Light Touch: Right Upper Extremity: Severe impairment Left Upper Extremity Examination LUE Assessment: Within Functional Limits Manual Muscle Testing - LUE: Within functional limits Light Touch: Left Upper Extremity: Intact Right Lower Extremity Examination RLE Assessment: Within Functional Limits (PROM) Manual Muscle Testing - RLE: (grossly 0/5) RLE Tone: Hypertonic Light Touch: Right Lower Extremity: Severe impairment Pain Response: RLE: Intact (to pinch) Left Lower Extremity Examination LLE Assessment: Within Functional Limits Manual Muscle Testing: Within functional limits Light Touch: Left Lower Extremity: Intact THERAPEUTIC ACTIVITY Treatment Minutes 5 Interventions Therapist facilitated bed mobility training to improve upright activity tolerance, endurance, strength, and functional mobility. Refer to specific sections for further detail on specific interventions performed. BED MOBILITY Interventions Verbal cue to initiate. Pt initiated long sit and LLE progression to L EOB, however requiring increased time and verbal/manual cues to progress R hemiparetic LE off EOB. Level of [place] Physical/Non- physical Assist Adaptive Equipment Utilized Rolling/ Turning Scooting/ Bridging Minimum assist (75% patient's effort) (to EOB) Set-up required, Verbal Cues, Additional assist utilized for safety, Nonverbal cues (demo/gestures) Supine to Sit Minimum assist (75% patient's effort) (to L EOB) Set-up required, Verbal Cues, HOB elevated, Nonverbal cues (demo/gestures), Additional assist utilized for safety Sit to Supine GAIT TRAINING Treatment Minutes 8 Interventions Gait Training Interventions: PT provided max tactile cue to pelvis/trunk to facilitate proximal stability, L weight shift, and to RLE to progress during swing and stabilize during stance. Verbal cues provided for sequencing of steps. Level of [place] Distance Adaptive Equipment Utilized Gait Maximum assistance, Additional assist utilized for safety 4 forwards and 2 backward Hand held assist Gait Analysis poor postural control with posterior lean, R lean, decreased L weight shift, decreased L stance time, decreased R step length, decreased R stance control. NEUROMUSCULAR RE-EDUCATION Treatment Minutes 25 Interventions Sitting Balance- Pt sat unsupported x 20 min in attempt to increase trunk strength/postural control, midline orientation, tolerance to upright position, and sitting balance for participation in upright activities. Pt demonstrated posterior lean. Pt required minimal to contact guard physical assistance to maintain upright/midline posture. Interventions included BLE support, verbal cues, tactile cues, and anterolateral reaching contralateral to direction of lean BALANCE Postural Appearance Posture: Weight shift posterior to midline Level of [place] Balance Support Interventions Static Sit Contact guard Feet supported Dynamic Sit Minimum assistance Feet supported Dynamic Sitting-Balance: Lateral weight shifts, Anterior/Posterior weight shifts, Reaching for objects Static Stand Minimum assistance Right upper extremity support, Left upper extremity support Dynamic Stand Moderate assistance (to Min A) Right upper extremity support, Left upper extremity support Anterior/Posterior weight shifts, Lateral weight shifts, Reaching for objects TRANSFERS Interventions PT provided hand over hand for LUE support and to block R knee 2/2 hemiparesis. Tactile cue provided to pelvis to facilitate proximal stability and control during transfers. PT facilitated contralateral weight shift for step progression to chair and manual cue to facilitate RLE L sidestep progression 2/2 hemiparesis and motor control impairments. Level of [place] Physical/Non- physical Assist Adaptive Equipment Utilized Sit to Stand Minimum assist (75% patient's effort) Set-up required, Verbal Cues, Nonverbal cues (demo/gestures) Hand held assist Stand to sit Minimum assist (75% patient's effort) Set-up required, Verbal Cues, Additional assist utilized for safety, Nonverbal cues (demo/gestures) Hand held assist Bed to Chair Moderate assist (50% patient's effort) Sidesteps (to L) Set-up required, Verbal Cues, Nonverbal cues (demo/gestures) Hand held assist Standardized Assessments [facility] 6-Clicks Mobility Assessment Difficulty patient has turning over in bed (including adjusting bedclothes, sheets, and blankets)?:A little Difficulty patient has sitting down on and standing up from a chair with arms (wheelchair, bedside commode, etc.)?: A little Difficulty patient has moving from lying on back to sitting on the side of the bed?: A little How much help does the patient need moving to and from a bed to a chair (including a wheelchair)?: A lot How much help does the patient need to walk in hospital room?: A lot How much help does the patient need climbing 3-5 steps with a railing?: Unable [facility] 6-Clicks Mobility Assessment Total : 14 Assessment Pt tolerated session without adverse effects. C-Collar donned in supine upon therapist arrival per MD order. Pt progressing appropriately with bed mobility, balance, transfers, and gait training to date. Pt continues to require PT assist for mobility 2/2 fall risk and impairments noted below. Pt will continue to benefit from skilled physical therapy to reduce fall risk, reduce burden of care, andto optimize post stroke IND with mobility and ADLs as pt requiring CGA- Max A for mobility at was IND at baseline in home and community. Patient will benefit from continued skilled physical therapy and acute rehab placement upon D/C forthe following reasons: The patient requires the active and ongoing therapeutic interventions of multiple therapy disciplines, one of which must be physical or occupational therapy. The patient is able to participate in 3 hours of therapy 5 days per week. The patient will be expected to actively participate in and benefit significantly from the intensive rehabilitation program, which will be of practical value to improve the patient's functional capacity or adaptation to impairments in a reasonable period. The patient may require physician supervision by a rehabilitation physician three times weekly and 24-hour nursing. The patient requires an intensive and coordinated interdisciplinary approach to providing rehabilitation. The patient's medical and rehab needs cannot be met at a lower level of care, such as a subacute rehab facility, home health, or outpatient therapy. Impairments: Decreased endurance, ventilation, and/or gas exchange, Impaired gait dynamics/performance, Impaired postural/trunk control, Decreased strength, Decreased range of motion, Impaired locomotion, Impaired attention/alertness, Impaired cognition/safety awareness, Impaired balance, Impaired functional mobility/transfers, Impaired executive functioning, Impaired muscle tone, Impaired motor planning, Impaired sensation/sensory processing, Impaired motor cordination/control, Pain Activity Limitations: Inability to sit independently, Inability to complete ADLs independently, Inability to ambulate community distances, Inability to ambulate independently, Inability to transfer independently, Inability to ambulate household distances, Impaired attention/alertness Participation Restrictions: Self-care, Home management, Community leisure Activity Tolerance: Standing PT Recommendations Discharge Destination: Acute rehab Discharge Equipment: Defer to facility Plan Planned PT Interventions Balance training, Bed mobility training, Gait training, Motor coordination training, Transfer training, Manual therapy techniques, Postural re-education, Neuromuscular re-education, ROM, Strengthening, Stretching, Caregiver training, Functional Mobility PT Frequency 2 - 5 times per week PT Duration 2 weeks Goals PT GOAL DETAILS DATE ASSESSED STATUS PROGRESS PT Goal 1: Pt will perform supine<>sit with Autumn. PT Goal 1 Established Date: 08/28/25 PT Goal 1 Time Frame: 2 weeks 09/09/25 Goal met, Goal discontinued PT Goal 2: Pt will perform sit to stands and bed to chair transfer with Autumn. PT Goal 2 Established Date: 08/28/25 PT Goal 2 Time Frame: 2 weeks 09/09/25 Goal not met, Goal ongoing Continuing progress towards goal PT Goal 3: Pt will perform dynamic sitting balance at edge of bed with CGA, > than 5 minutes with stable vital signs. PT Goal 3 Established Date: 08/28/25 PT Goal 3 Time Frame: 2 weeks 09/09/25 Goal not met, Goal ongoing Continuing progress towards goal PT Goal 4: Pt and pt's family will verbalize HEP and discharge recommendations prior to discharge from [facility]. PT Goal 4 Established Date: 08/28/25 PT Goal 4 Time Frame: 2 weeks 09/09/25 Goal not met, Goal ongoing Continuing progress towards goal PT Goal 5: Pt will complete supine<>sit with SBA to improve safe functional mobility and independence. PT Goal 5 Established Date: 09/09/25 PT Goal 5 Time Frame: 2 weeks PT Goal 6: Pt will ambulate 10' with Mod A to improve safe functional mobility and independence. PT Goal 6 Established Date: 09/09/25 PT Goal 6 Time Frame: 2 weeks Written by Colleen Florence on 09/09/25 at 10:46 AM. * Progress Notes - Ani Gaviria - 09/09/2025 9:21 AM EST OCCUPATIONAL THERAPY REASSESSMENT PATIENT DATA Patient Name Lyla Warren Session Date 09/09/2025 OT Discharge Recommendations Acute rehab Equipment Recommendations Defer to facility HISTORY Lyla Warren is 60 y.o. female admitted 08/27/2025 for work-up of Acute intra-cranial hemorrhage (CMS/HCC). Hospital Course 1. Acute intra-cranial hemorrhage (CMS/HCC) 2. Intracranial hemorrhage (CMS/HCC) Procedures Past Medical History Patient has no past medical history on file. Past Surgical History Patient has no past surgical history on file. PRECAUTIONS Medical Precautions Medical Precautions: Spinal Spinal Precautions : C-collar at all times Medical Precautions: SBP < 150,- Consulted [facility] who recommended to reach out to Dr. Bedoya about post op recs and keep cervical collar in place until then. - Per orthopedics at [facility], C-collar should be kept in place, can be removed when eating, drinking and showering. Daughter says that was the same instruction she was given by Dr. Bedoya who performed the procedure. SUBJECTIVE PARTICIPANTS IN CARE Patient/Caregiver Comments RN cleared pt for therapy. Pt agreeable for OT reassessment this morning. Visitors Present Family/Caregiver Present: No PRESENTATION Oxygen None (Room air) Lines and Tubes Female External Urinary Catheter 08/28/25 0230 (Active) Peripheral IV 08/27/25 Posterior;Right Hand (Active) Pre-Session Supine, Head of bed elevated, Lines intact, Bed alarm C-colalr doffed Post-Session Sitting in chair, Chair alarm, Lines intact, RN notified, Call light in reach, SCDs applied C-Collar donned Bracing (if applicable) Orthoses: C-Collar HOME LIVING/SET-UP Lives With Alone Home Type House Home Equipment None Additional Comments Limited information due to pt's aphasia, no family present to confirm prior level of function and home setup. PRIOR LEVEL OF FUNCTION Receives help from No assist required prior to admission (Granddaughters to assist if needed) Level of Mobility Ambulatory- community Mobility [place] Independent gait without device ADL Performance ADL Performance: Independent PATIENT/FAMILY GOALS To return to baseline. OBJECTIVE PAIN Patient endorses pain with movement RLE, does not rate. Patient positioned for comfort at end of session. DELIRIUM SCREENING RASS: Alert and calm Confusion Assessment Method-ICU (CAM-ICU/PCAM-ICU) Feature 3: Altered Level of Consciousness: Negative COGNITION Overall Cognitive Status Impaired Arousal/Alertness Appropriate responses to stimuli Mood/Behavior Alert, Confused, Distractible Orientation Oriented to person, Oriented to place Oriented to name and hospital , choices for month/year. Disoriented to time with choices and cues Command Following Single Step Commands: Consistently, With increased time, With repetition Multi-Step Commands: With repetition, With increased time, 50% of the time Method of Communication Expressive aphasia, Verbal Additional Observations Safety Judgment: Decreased awareness of need for assistance Awareness of Errors: Assistance required to identify errors made, Assistance required to correct errors made Deficit Awareness: Decreased awareness of deficits Attention Span: Attends with cues to redirect Problem Solving: Assistance required to identify errors made RIGHT UPPER EXTREMITY EXAMINATION Range of Motion Within Functional Limits (PROM - shoulder to 90 degrees to prevent subacromial trauma) Manual Muscle Testing (0/5 throughout) Light Touch Sensation Severe impairment LEFT UPPER EXTREMITY EXAMINATION Range of Motion Within Functional Limits Manual Muscle Testing Within functional limits Light Touch Sensation Intact RIGHT LOWER EXTREMITY EXAMINATION Range of Motion Within Functional Limits (PROM) Manual Muscle Testing (grossly 0/5) Light Touch Sensation Severe impairment LEFT LOWER EXTREMITY EXAMINATION Range of Motion Within Functional Limits Manual Muscle Testing Manual Muscle Testing: Within functional limits Light Touch Sensation Intact COORDINATION Fine Motor Coordination Fine Motor Coordination Examination Left Hand Thumb/Finger Opposition Skills: Mild impairment Right Hand Thumb/Finger Opposition Skills: Unable to perform Left Hand, Manipulation of Objects: Normal performance Right Hand, Manipulation of Objects: Unable to perform BED MOBILITY Level of [place] Physical/Non-physical Assist Scooting/ Bridging Minimum assist (75% patient's effort) (to EOB) Set-up required, Verbal Cues, Additional assist utilized for safety, Nonverbal cues (demo/gestures) Supine to Sit Minimum assist (75% patient's effort) (to L EOB) Set-up required, Verbal Cues, HOB elevated, Nonverbal cues (demo/gestures), Additional assist utilized for safety TRANSFERS Level of [place] Physical/Non-physical Assist Adaptive Equipment Utilized Sit to Stand Minimum assist (75% patient's effort) Set-up required, Verbal Cues, Nonverbal cues (demo/gestures) Hand held assist Stand to sit Minimum assist (75% patient's effort) Set-up required, Verbal Cues, Additional assist utilized for safety, Nonverbal cues (demo/gestures) Hand held assist Bed to Chair Moderate assist (50% patient's effort) Sidesteps (to L) Set-up required, Verbal Cues, Nonverbal cues (demo/gestures) Hand held assist BALANCE Postural Appearance Posture: Weight shift posterior to midline Level of [place] Balance Support Interventions Static Sit Contact guard Feet supported Dynamic Sit Minimum assistance Feet supported Dynamic Sitting-Balance: Lateral weight shifts, Anterior/Posterior weight shifts, Reaching for objects Static Stand Minimum assistance Right upper extremity support, Left upper extremity support Dynamic Stand Moderate assistance (to Min A) Right upper extremity support, Left upper extremity support Dynamic Standing-Balance: Anterior/Posterior weight shifts, Lateral weight shifts, Reaching for objects STANDARDIZED ASSESSMENTS [facility] 6-Click Daily Activities Help from Other: Don/Doff Regular Lower Body Clothings: Total Help From Other: Bathing: Total Help From Other: Toileting: Total Help From Other: Don/Doff Upper Body Clothings: A lot Help From Other: Grooming: A lot Help From Other: Eating Meals: [facility] 6 Click - Daily Activities Score: 10 OT INTERVENTIONS SELF-CARE Treatment Minutes (if applicable) 23 Comments: The patient engaged in skilled intervention for progression towards independence in basicself-cares, focusing on UB dressing, LB dressing, toileting, grooming, and functional ADL transfers. The patient benefited from the following OT interventions: Increased time provided for completion of task and to optimize participation. Skilled management of medical lines/tubes to reduce fall risk with functional ADL transfers. Increased skilled time provided for monitoring of vitals for patient tolerance to activity - pt on room air, VSS when spot checked. Encouragement and therapeutic use of self for maximized volitional effort and task attempts. Environmental set-up to ensure safety and accessibility to all needed areas of treatment space. *In response to above interventions, the patient performed all tasks as described below with appropriate additional interventions and assist levels provided based on observable deficits.* Level of [place] Interventions Grooming Minimum assistance Edge of bed Patient brushed hair while seated EOB s/p setup. Assist required to maintain upright sitting balance at EOB and for setup. Cues required for task initiation, attention to task, and to target all areas. Upper Body Dressing Dependent Patient requires dependent assist to don c-collar while in supine. Lower Body Dressing Sock Level of Assistance: Maximum assistance Patient required MAX A to adjust non-slip socks, increased assist required 2/2 impaired sitting balance, RLE ROM, BUE coordination, and strength. Toileting Patient completed preparatory tasks for toileting routine including simulated toilet transfer with MOD A with ASH HANDLER. Household/ Community Re-Entry Patient was challenged to complete transition to EOB and activity completion while seated upright at EOB in order to assess functional endurance, tolerance to upright position, and to prepare for upright ADLs. MAX multimodal cues provided to encourage movement of BLEs towards EOB and for contralateral reach to bed rail, however MIN assist required for completion of transition to EOB. Pt was additionally challenged to complete functional out of bed transfers. Pt required MIN A for sit>stand via ASH HANDLER. MOD A required for step t/f EOB>chair. Pt able to navigate 4 steps forward, 2 steps retrograde with MAX A, ASH HANDLER, and MAX cues for body awareness and sequencing.Patient demonstrating overall decreased tolerance to prolonged standing activity this date, indicating decreased endurance anticipated with out of bed ADLs including grooming, toileting, dressing, and bathing. COGNITIVE INTERVENTIONS (15 minutes) Comment The patient continues to present with expressive aphasia as well as impaired selective, focused, and divided attention systems and executive function. Pt provided with consistent multimodal cues throughout session for task initiation, attention to task, problem solving, and sequencing. Withabove supports, pt demo's 100% simple command following, and 50% multi-step command following. ASSESSMENT OT FINDINGS The patient is a 60yo F, seen today for OT re-evaluation. The patient was admitted due to left posterior frontal ICH. The patient tolerated OT re- evaluation fairly, with full participation limited byonset of fatigue. The patient is currently performing below functional baseline, with independence m ainly limited by deficits as listed below: Impaired ADL performance, Impaired IADL performance, Impaired cognition, Impaired executive function, Impaired postural/trunk control, Impaired fine motor control/coordination, Impaired attention, Impaired balance, Impaired functional mobility, Decreased endurance/ventilation/gas exchange, Decreased upper extremity strength, Impaired judgment during ADL Compared to functional baseline, patient now requires increased assist for all BADLs, IADLs, and functional mobility. Due to deficits, continued skilled OT warranted for maximized independence and participation in valued occupations, and to optimize safety with return to routines. Recommend discharge to acute rehab for optimal progression towards therapy goals. If the patient were to return home without acute rehab stay, the patient would be at increased risk of fall(s), injury, and hospital readmission. OT anticipates the patient would benefit more greatly from acute rehab than other rehab services for the following reasons: The patient requires intensive and active therapeutic interventions of at least 2 disciplines (OT+PT), The patient will be able to tolerate 3 hoursof therapy of 5 days/wk (or 15hrs over 7 days/week), The patient's medical and rehab needs cannot be met at a lower level of care such as subacute rehab or home health, and PRIOR to hospitalization, pt was a community ambulator with independence, completed all BADLs with independence, and IADLs with independence. CURRENTLY patient requiring MIN assist for all bed mobility, MOD-MAX assist for functional ADL transfers of less than a household distance, CGA-MIN assist with upper body ADLs, and MOD-MAX assist for all lower body ADLs. This indicates that the patient would benefit significantly from intensive rehab, in order to improve functional capacity within a reasonable period. Evaluation/ Treatment Tolerance (if identified) Patient limited by fatigue Rehab Potential (if identified) Good, to achieve stated therapy goals EVAL COMPLEXITY Occupational Profile Expanded review of medical/therapy records and additional review of physical, cognitive, or psychosocial history Performance Deficits Performance Deficits: Activities of daily living (ADLs), Instrumental activities of daily living (IADLs), Body functions, Body structures, Personal, Physical, Habits, Routines, Roles, Social participation, Leisure Clinical Decision Making Moderate Overall Eval Complexity Moderate OT RECOMMENDATIONS Discharge Destination Acute rehab Discharge Equipment Defer to facility PLAN Planned OT Interventions ADL retraining, IADL retraining, Balance training, ROM, Strengthening, Bed mobility Training, Transfer training, Neuromuscular re-education OT Frequency 2 - 5 times per week OT Duration 2 weeks GOALS OT GOAL DETAILS DATE ASSESSED STATUS PROGRESS OT Goal 1: Pt will be CGA to stand pivot to BSC to complete toileting, bilateral hand held assist OT Goal 1 Established Date: 08/28/25 OT Goal 1 Time Frame: 2 weeks 09/09/25 Goal ongoing Continuing progress towards goal OT Goal 2: Pt will be [place] for sitting balance at EOB to complete singular grooming task OT Goal 2 Established Date: 08/28/25 OT Goal 2 Time Frame: 2 weeks 09/09/25 Goal ongoing Continuing progress towards goal OT Goal 3: Pt will be AOx4 2/2 sessions OT Goal 3 Established Date: 08/28/25 OT Goal 3 Time Frame: 2 weeks 09/09/25 Goal ongoing Continuing progress towards goal OT Goal 4: Pt will perform multistep commands with 50% accuracy 2/2 sessions to complete ADL task OT Goal 4 Established Date: 08/28/25 OT Goal 4 Time Frame: 2 weeks 09/09/25 Goal ongoing Continuing progress towards goal Written by Ani Gaviria on 09/09/25 at 10:53 AM. * Progress Notes - Alfredo Richardson, STUNT DRIVER - 09/09/2025 8:39 AM EST Neurology Stroke Progress Note Subjective: Overnight, complained of headache which subsequently resolved. She now has PRN lyrica available forheadache complaints. This morning, Ms. Warren is seen and examined while she is resting in bed. Shereports feeling well and that her headache has resolved. She remains medically ready for rehab and has been pending insurance approval since 03/06. Reviewed the plan of care with family at bedside. Discussed the plan of care with nursing. ROS: Patient denied chest pain, difficulty breathing, shortness of breath, difficulty urinating/stooling, or lightheadedness/vertigo. Objective: Vital Signs: Visit Vitals BP 125/85 Pulse 70 Temp 36.6 ??C (97.9 ??F) (Oral) Resp 12 Ht 1.727 m (5' 8 ) Wt 69.5 kg (153 lb 3.5 oz) SpO2 96% BMI 23.30 kg/m?? OB Status Postmenopausal Smoking Status Former BSA 1.83 m?? Laboratory Testing (all labs personally reviewed and interpreted): Results from last 7 days Lab Units 09/07/25 1352 09/05/2510309/03/25 0642 WBC 10*3/uL 9.75 13.51* 12.70* HEMOGLOBIN g/dL 12.9 14.2 14.3 HEMATOCRIT % 36.9 40.8 41.1 PLATELETS 10*3/uL 407* 393* 392* Results from last 7 days Lab Units 09/08/25 0311 09/07/25 1352 09/06/25 0957 09/05/25 0837 09/05/25 01009/03/25 0642 SODIUM mmol/L 134* 132* 133* < > 132* 135* POTASSIUM mmol/L -- 3.9 -- -- 3.7 4.3 CHLORIDE mmol/L -- 98 -- -- 96* 99 CO2 mmol/L -- 24 -- -- 25 24 BUN mg/dL -- 24* -- -- 25* 27* CREATININE mg/dL -- 0.73 -- -- 0.59* 0.61 CALCIUM mg/dL -- 9.1 -- -- 9.2 9.3 GLUCOSE mg/dL -- 155* -- -- 174* 174* < > = values in this interval not displayed. Results from last 7 days Lab Units 09/07/25 1352 09/05/25 0104 MAGNESIUM mg/dL 2.0 2.1 Medications: Current Scheduled Medications[1] PRN Current PRN Medications[2] Physical Exam: Constitutional: Patient in no acute distress. Patient appears stated age. C- collar in place Ears, Nose, Mouth, Throat: Mucous membranes appear moist. No appreciable hearing impairment. Nares patent. Eyes: PERRLA @ 3mm, Anicteric sclera. No appreciable conjunctival injection. Cardiovascular: Radial pulse patent. No appreciable murmurs, gallops, or rubs. No appreciably irregular rhythm. No appreciable edema. Respiratory: Clear to auscultation throughout on room air. Symmetric chest expansion. Non-labored breathing. Gastrointestinal: Soft, nontender, nondistended. Normoactive bowel sounds x 4. Genitourinary: No appreciable bladder distention. Musculoskeletal: No appreciable joint swelling. No appreciable joint deformities. No appreciable lower extremity warmth or erythema in either leg. Psychiatric: Appropriate mood and affect. Patient is cooperative. Neurological Examination: Mental Status: Alert and oriented to self. Follows two step commands. Language: Moderate expressive aphasia. Trace dysarthria. Concentration and attention full. Cranial Nerves: Aside from mild right central facial palsy, left quadrantanopsia; no appreciable deficit in cranial nerves II-XII. Motor: Normal tone and bulk throughout. Left upper extremity 4/5. Right upper extremity 1/5. Left lower extremity 4/5. Right lower extremity 1/5. Sensory: Sensation mildly decreased to right upper and lower extremity Coordination: No appreciable limb ataxia. Gait: Deferred due to weakness. Assessment/Plan: Lyla Warren is a 60 y.o. female who presented with right side weakness, right facial droop, and hemianopia. Medical history includes ACDF (C4-C5) day prior at OSH, hypothyroidism, diabetes, and HLD. Comprehensive stroke workup completed with diagnosis of left frontal lobe IPH with associated SAH and left M3 branch occlusion secondary to concern for an initial ischemic stroke with subsequent hemorrhagic conversion. 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 - Thrombolytics not given w/ hemorrhage on imaging - Thrombectomy not indicated with no large vessel occlusion - Stroke mechanism: concern for ischemic stroke d/t ESUS and subsequent bleed - Stroke labs include A1C 6.2, TSH 1.44, LDL 78. - CT head: CT head posterior left frontal lobe IPH with SAH - CTA head and neck with no large vessel occlusion, no significant stenosis however noted concerns for moderate narrowing of left LEEROY. - DSA on 08/29/25 with left MCA M3 occlusion with corresponding wedge defect and capillary perfusion defect. - MRI head w/o contrast with posterior left frontal lobe IPH w/ adjacent SAH and IVH. - Transthoracic ECHO showed an EF of 63%, normal LA, and no shunt. - PT/OT recommend Acute rehab - PRINCIPAL GIFTS OFFICER recommend soft/bite sized consistency with thin liquids - PHQ/MoCA: unable to collect due to stroke deficits - Blood pressure goals: normotension - Secondary stroke risk reduction includes high intensity statin and plan for antiplatelet therapy 3 weeks post hemorrhage (~09/17). - Recommend to stop estradiol for hot flashes. - 09/01, stat CT head for increased sedation, delayed responses, and not following commands. Exam returned to baseline upon return to floor. Follow up needs: - PCP as soon as able for continued comorbidity care - [facility] in 3 months for continued stroke care - [facility] Cardiology in 6-8 weeks to evaluate residential monitor results and assess for need for ILR due toconcern for occult Afib as ESUS etiology of stroke #Dysphagia due to stroke POA #Feeding difficulty due to stroke POA - 08/30, MBS with recommendations for IDDSI Level 6- Soft & Bite Sized with IDDSI Level 0-Thin Liquids by single spoon or cup sips only. NO STRAWS. NO CONSECUTIVE SIPS. - 09/03, continues to have poor food intake however, patient continues to report dislike for provided diet an wants to wait for her family to bring her food. - 09/05, improved PO intake, DHT removed. Food preferences and supplements updated per patient and family report - 09/07, Repeat MBS with recommendations for Regular diet (IDDSI Level 7) and Thin liquids (IDDSI Level 0) via single drinks, straws okay, liquid wash + cleansing swallow after regular solids, meds upto whole in puree/pudding, oral care q6h. #Hypertension POA - Goal for normotension - 08/31, Continue carvedilol 12.5mg BID and will consider starting another agent for SBP above goal. - 09/01, lisinopril 5 mg daily added for ongoing hypertension - 09/03, 1 outlier of hypertension over the last 24 hours, trend without adjustment to antihypertensive regimen at this time #Hx of spinal fusion. - Patient had C4-C5 spinal fusion anterior approach at [facility] on 08/26/[address] Bedoya (Orthopedics department) - Currently has cervical collar in place. - Consulted [facility] who recommended to reach out to Dr. Bedoya about post op recs and keep cervical collar in place until then. - Per orthopedics at [facility], C-collar should be kept in place, can be removed when eating, drinking and showering. Daughter says that was the same instruction she was given by Dr. Bedoya who performed the procedure. - 08/31, Started low dose PRN gabapentin to assist with pain. - 09/01, encouraged use of gabapentin should patient report pain - Has follow up appointmet with Dr. Bedoya ([facility]) on 09/09/25 (office notified of hospitalization). #Hyperlipidemia POA - LDL 78 - Continue statin therapy #Diabetes POA - home regimen on metformin 500mg BID - A1C 6.2 - Continue glucose checks with SSI coverage #Depression/anxiety POA - Home cymbalta 60mg daily #Thrombocytosis - 09/05, Mildly uptrending. #Uremia #Hyponatremia - 08/31, Mildly uptrending. - 09/03, continues to improve - 09/05, BUN continues to improve. Mildly hyponatremic with Na 134 (after corrected for hyperglycemia). - 09/06, Urine sodium 29, urine osmolality 509, and Na 133. Per UpToDate algorithm, 1L NS administered with repeat urine sodium and osmolality after infusion. - 09/08, Na continues to improve. Stable mentation #Slow transit constipation due to stroke POA - bowel regimen with goal for BM at least every 72 hrs - LBM 09/08 #QT prolongation POA - On admit, QTc 518 - 08/28, QTC 500 - Avoid QT prolonging agents when able #Leukocytosis, resolved #UTI, resolved - Has been afebrile and HDS - 08/31, Mildly uptrending today. Will consider a UA. - 09/01, UA unremarkable without s/s of UTI; afebrile, HDS - 09/02, WBC up to 14k; remains afebrile and HDS - 09/03, WBC down to 12k; remains afebrile and HDS. Procalcitonin continues to be unremarkable - 09/05, persistent leukocytosis without overt s/s of infection. Remains afebrile and HDS. - 09/06, reports new dysuria which began last night. Afebrile and HDS. UA showing leukocytes and bacteria; treated with PO fosfomycin #FEN - HLIV - Monitor and replace prn - Soft and bite size #DVT PPX - SCDs and pLov #Dispo - Acute, medically rdy - Code status: Full Code Patient assessment and plan has been discussed with the attending physician, Alfredo Richardson APRN Epic Secure Chat Preferred [1] carvedilol, 12.5 mg, Oral, BID dantrolene, 25 mg, Oral, Daily DULoxetine, 60 mg, Oral, Daily enoxaparin, 40 mg, Subcutaneous, Daily iohexol, 300 mL, Other, Once in imaging levothyroxine, 100 mcg, Oral, q AM lisinopril, 5 mg, Oral, Daily mirtazapine, 30 mg, Oral, Nightly polyethylene glycol, 17 g, Oral, BID rosuvastatin, 40 mg, Oral, Nightly senna-docusate, 2 tablet, Oral, BID Insert peripheral IV, , , Once AND Saline lock IV, , , Once AND sodium chloride, 10 mL, Intravenous, q12h AND sodium chloride, 10 mL, Intravenous, PRN [2] acetaminophen, 1,000 mg, Oral, q6h PRN OR acetaminophen, 1,000 mg, Nasogastric, q6h PRN OR acetaminophen, 650 mg, Rectal, q6h PRN bisacodyl, 10 mg, Rectal, Daily PRN melatonin, 6 mg, Oral, Nightly PRN ondansetron, 6 mg, Intravenous, q6h PRN pregabalin, 25 mg, Oral, BID PRN Insert peripheral IV, , , Once AND Saline lock IV, , , Once AND sodium chloride, 10 mL, Intravenous, q12h AND sodium chloride, 10 mL, Intravenous, PRN traZODone, 50 mg, Oral, Nightly PRN * Care Plan - Cecilia Sneed RN - 09/09/2025 7:42 AM EST Problem: Adult Inpatient Plan of Care Goal: Plan of Care Review Outcome: Ongoing, Progressing Goal: Patient-Specific Goal (Individualized) Outcome: Ongoing, Progressing Flowsheets (Taken 09/09/2025 1740) Patient/Family-Specific Goals (Include Timeframe): Patient will remain free from falls during this shift Individualized Care Needs: Safety Anxieties, Fears or Concerns: None Goal: Absence of Hospital-Acquired Illness or Injury Outcome: Ongoing, Progressing Goal: Optimal Comfort and Wellbeing Outcome: Ongoing, Progressing Problem: Fall Injury Risk Goal: Absence of Fall and Fall-Related Injury Outcome: Ongoing, Progressing Intervention: Identify and Manage Contributors Flowsheets (Taken 09/09/2025 1541) Medication Review/Management: medications reviewed Self-Care Promotion: independence encouraged Problem: Stroke, Intracerebral Hemorrhage Goal: Optimal Coping Outcome: Ongoing, Progressing Goal: Effective Bowel Elimination Outcome: Ongoing, Progressing Goal: Optimal Cerebral Tissue Perfusion Outcome: Ongoing, Progressing Goal: Optimal Cognitive Function Outcome: Ongoing, Progressing Goal: Effective Communication Skills Outcome: Ongoing, Progressing Goal: Optimal Functional Ability Outcome: Ongoing, Progressing Goal: Improved Oral Intake Outcome: Ongoing, Progressing Goal: Optimal Pain Control and Function Outcome: Ongoing, Progressing Goal: Effective Oxygenation and Ventilation Outcome: Ongoing, Progressing Goal: Improved Sensorimotor Function Outcome: Ongoing, Progressing Goal: Safe and Effective Swallow Outcome: Ongoing, Progressing Goal: Effective Urinary Elimination Outcome: Ongoing, Progressing Intervention: Promote Effective Bladder Elimination Flowsheets (Taken 09/09/2025 07) Urinary Elimination Promotion: absorbent pad/diaper use encouraged Problem: Skin Injury Risk Increased Goal: Skin Health and Integrity Outcome: Ongoing, Progressing Intervention: Optimize Skin Protection Flowsheets (Taken 09/09/2025 0741) Activity Management: activity adjusted per tolerance Pressure Reduction Techniques: pressure points protected Pressure Reduction Devices: alternating pressure pump (ARELI) Skin Protection: protective footwear used Head of Bed (HOB) Positioning: HOB elevated Problem: Infection Goal: Absence of Infection Signs and Symptoms Outcome: Ongoing, Progressing Intervention: Prevent or Manage Infection Flowsheets (Taken 09/09/2025740) Infection Management: aseptic technique maintained Fever Reduction/Comfort Measures: lightweight bedding lightweight clothing Isolation Precautions: protective * Care Plan - Alyssa Shaw RN - 09/08/2025 8:33 PM EST Problem: Adult Inpatient Plan of Care Goal: Plan of Care Review Flowsheets Taken 09/08/20252020 by Alyssa Shaw RN Progress: no change Taken 09/07/2025 1445 by Sugey Holly RN Plan of Care Reviewed With: patient Taken 09/07/2025 0323 by Nunu Preciado RN Outcome Evaluation: treatment plan and medication regimen discussed with pt and family, both agreeable to plan Goal: Patient-Specific Goal (Individualized) Flowsheets (Taken 09/08/20252005) Patient/Family-Specific Goals (Include Timeframe): pt to remain free of falls Individualized Care Needs: safety Anxieties, Fears or Concerns: none Goal: Absence of Hospital-Acquired Illness or Injury Intervention: Identify and Manage Fall Risk Flowsheets (Taken 09/08/2025 1800 by Christal Golden CNA) Safety Promotion/Fall Prevention: safety round/check completed activity supervised clutter-free environment maintained fall prevention program maintained room organization consistent Intervention: Prevent Skin Injury Flowsheets Taken 09/08/20252005 by Alyssa Shaw RN Body Position: weight shifting Taken 09/08/2025726 by Cecilia Sneed, RN Skin Protection: incontinence pads utilized Intervention: Prevent and Manage VTE (Venous Thromboembolism) Risk Flowsheets (Taken 09/08/20252005) VTE Prevention/Management: bilateral SCDs (sequential compression devices) on Intervention: Prevent Infection Flowsheets (Taken 09/06/2025 0009 by Carley Garay, RN) Infection Prevention: cohorting utilized environmental surveillance performed equipment surfaces disinfected hand hygiene promoted personal protective equipment utilized rest/sleep promoted single patient room provided Goal: Optimal Comfort and Wellbeing Intervention: Monitor Pain and Promote Comfort Flowsheets (Taken 09/08/20251999) Pain Management Interventions: medication (see MAR) Intervention: Provide Person-Centered Care Flowsheets (Taken 09/07/2025 0323 by Nunu Preciado, RN) Trust Relationship/Rapport: care explained choices provided emotional support provided empathic listening provided questions answered questions encouraged reassurance provided thoughts/feelings acknowledged Problem: Fall Injury Risk Goal: Absence of Fall and Fall-Related Injury Intervention: Identify and Manage Contributors Flowsheets (Taken 09/08/2025726 by Cecilia Sneed, RN) Medication Review/Management: medications reviewed Self-Care Promotion: independence encouraged Intervention: Promote Injury-Free Environment Flowsheets (Taken 09/08/2025 1800 by Christal Golden CNA) Safety Promotion/Fall Prevention: safety round/check completed activity supervised clutter-free environment maintained fall prevention program maintained room organization consistent Problem: Stroke, Intracerebral Hemorrhage Goal: Optimal Coping Intervention: Support Psychosocial Response to Stroke Flowsheets Taken 09/06/2025 0009 by Carley Garay, SEDA Supportive Measures: active listening utilized decision-making supported positive reinforcement provided self-care encouraged self-responsibility promoted verbalization of feelings encouraged relaxation techniques promoted goal-setting facilitated Taken 09/05/2025 1751 by Hortencia Quiroz Family/Support System Care: self-care encouraged Goal: Effective Bowel Elimination Intervention: Promote Effective Bowel Elimination Flowsheets (Taken 09/07/2025 1445 by Sugey Holly, RN) Bowel Elimination Management: hygiene measures promoted Bowel Program: maintenance program followed Goal: Optimal Cerebral Tissue Perfusion Intervention: Protect and Optimize Cerebral Perfusion Flowsheets (Taken 09/08/2025726 by Cecilia Sneed, RN) Stabilization Measures: legs elevated Fluid/Electrolyte Management: fluids provided Sensory Stimulation Regulation: care clustered quiet environment promoted Cerebral Perfusion Promotion: blood pressure monitored Goal: Optimal Cognitive Function Intervention: Optimize Cognitive Function Flowsheets Taken 09/08/2025726 by Cecilia Sneed RN Sensory Stimulation Regulation: care clustered quiet environment promoted Taken 09/05/20251750 by Hortencia Quiroz Reorientation Measures: clock in view glasses use encouraged Environment Familiarity/Consistency: familiar objects from home provided Goal: Effective Communication Skills Intervention: Optimize Communication Skills Flowsheets (Taken 09/07/2025 0323 by Nunu Preciado, RN) Communication Enhancement Strategies: one-step directions provided repetition utilized extra time allowed for response communication board used call light answered in person verbal communication attempts encouraged Goal: Optimal Functional Ability Intervention: Optimize Functional Ability Flowsheets Taken 09/08/2025 2006 by Alyssa Shaw RN Activity Management: activity adjusted per tolerance Taken 09/08/2025726 by Cecilia Sneed RN Self-Care Promotion: independence encouraged Taken 09/05/20251750 by Hortencia Quiroz Adaptive Equipment Use: use encouraged Goal: Improved Oral Intake Intervention: Promote and Optimize Fluid and Food Intake Flowsheets (Taken 09/06/2025 0009 by Carley Garay, SDEA) Oral Nutrition Promotion: rest periods promoted Nutrition Interventions: food preferences provided meals from home/family encouraged Goal: Optimal Pain Control and Function Intervention: Monitor and Manage Pain Flowsheets Taken 09/08/20251999 Pain Management Interventions: medication (see MAR) Taken 08/29/2025 2308 Complementary Therapy: (ice packs) other (see comments) Spiritual Activities Assistance: affirmation provided Sleep/Rest Enhancement: regular sleep/rest pattern promoted Goal: Effective Oxygenation and Ventilation Intervention: Optimize Oxygenation and Ventilation Flowsheets Taken 09/08/20252005 by Alyssa Shaw RN Head of Bed (HOB) Positioning: HOB elevated Taken 09/07/2025 0800 by Sugey Holly RN Cough And Deep Breathing: done with encouragement Taken 08/30/2025 1149 by Carlos Lovell RN Airway/Ventilation Management: pulmonary hygiene promoted Goal: Improved Sensorimotor Function Intervention: Optimize Range of Motion, Motor Control and Function Flowsheets Taken 09/08/2025 2006 by Alyssa Shaw RN Range of Motion: active ROM (range of motion) encouraged Taken 09/05/20251750 by Hortencia Quiroz Positioning: Shoulder: protection of affected arm encouraged Positioning/Transfer Devices: pillows Taken 08/29/20252307 by Alyssa Shaw RN Spasticity Management: weight-bearing facilitated Intervention: Optimize Sensory and Perceptual Ability Flowsheets Taken 09/08/2025726 by Cecilia Sneed RN Pressure Reduction Techniques: pressure points protected positioned off wounds Pressure Reduction Devices: alternating pressure pump (ARELI) Taken 08/29/20252307 by Alyssa Shaw RN Sensation Impairment Protection: cues provided for safety Goal: Safe and Effective Swallow Intervention: Optimize Eating and Swallowing Flowsheets Taken 09/05/20251750 by Hortencia Quiroz Aspiration Precautions: awake/alert before oral intake upright posture maintained food consistency adjusted Swallowing Interventions: Dysphagia: foods moistened food placed on left side upright position maintained 45 mins after intake Feeding/Eating Techniques: feeding assistance provided Taken 08/29/20252307 by Alyssa Shaw RN Swallowing Method: other (see comments) Goal: Effective Urinary Elimination Intervention: Promote Effective Bladder Elimination Flowsheets (Taken 09/05/20251750 by Hortencia Quiroz) Urinary Elimination Promotion: absorbent pad/diaper use encouraged Problem: Skin Injury Risk Increased Goal: Skin Health and Integrity Intervention: Optimize Skin Protection Flowsheets Taken 09/08/20252005 by Alyssa Shaw RN Activity Management: activity adjusted per tolerance Head of Bed (HOB) Positioning: HOB elevated Taken 09/08/2025726 by Cecilia Sneed RN Pressure Reduction Techniques: pressure points protected positioned off wounds Pressure Reduction Devices: alternating pressure pump (ARELI) Skin Protection: incontinence pads utilized Intervention: Promote and Optimize Oral Intake Flowsheets (Taken 09/06/20258 by Carley Garay RN) Oral Nutrition Promotion: rest periods promoted Nutrition Interventions: food preferences provided meals from home/family encouraged Problem: Infection Goal: Absence of Infection Signs and Symptoms Intervention: Prevent or Manage Infection Flowsheets Taken 09/08/2025 1800 by Cecilia Sneed RN Isolation Precautions: protective Taken 09/08/2025726 by Nedra, Cecilia L, RN Infection Management: aseptic technique maintained Fever Reduction/Comfort Measures: lightweight bedding lightweight clothing * Progress Notes - Olamide Perez R - 09/08/2025 2:27 PM EST Physical Therapy Treatment Patient Name: Lyla Warren Today's Date: 09/08/2025 Treatment Time: 39 minutes PT Discharge Recommendations: Acute rehab Equipment Recommended: Defer to facility Subjective Patient reports hating the c-collar and not wanting to put it on for session. Patient and RN agreeable to therapy session. Participants in Care Family/Caregiver Present: No Mine Motor Operator: Not Applicable Presentation Oxygen Therapy: None (Room air) Lines and Tubes: Telemetry Female External Urinary Catheter 08/28/25 0230 (Active) Peripheral IV 08/27/25 Posterior;Right Hand (Active) Pre-Session: Sitting in chair, Chair alarm, Lines intact Pre-Session Comments: PT/OT donned c-collar Post-Session: Sitting in chair, Chair alarm, Lines intact, RN notified, Call light in reach, SCDs applied Orthoses: C-Collar Precautions Medical Precautions: Spinal Spinal Precautions : C-collar at all times Medical Precautions: SBP < 150 Objective Pain Patient does not report pain this date. Patient positioned for comfort at end of session with call light in reach. RN notified. Delirium Screening RASS: Alert and calm Confusion Assessment Method-ICU (CAM-ICU/PCAM-ICU) Feature 3: Altered Level of Consciousness: Negative Bed Mobility Bed Mobility Interventions: not performed this date as patient was in bedside chair at start of session and requests to stay in bedside chair at end of session. Transfers Transfer Exam: Sit to stand Level of [place]: Moderate assist (50% patient's effort) Physical/Nonphysical Assist: Supervision, Verbal Cues, Maximal cues Assistive Device: Hand held assist Transfer Exam: Stand to Sit Level of [place]: Moderate assist (50% patient's effort) Physical/Nonphysical Assist: Set-up required, Supervision, Verbal Cues, Additional assist utilized for safety, Nonverbal cues (demo/gestures) Assistive Device: Hand held assist Balance Static Sitting Balance Static Sitting-Balance Support: Feet supported, Left upper extremity support Static Sitting-Level of Assistance: Contact guard Dynamic Sitting Balance Dynamic Sitting-Balance Support: Feet supported, Left upper extremity support Dynamic Sitting-Balance: Lateral weight shifts, Anterior/Posterior weight shifts, Reaching for objects, Reaching across midline Level of Assistance: Minimum assistance Static Standing Balance Static Standing-Balance Support: Left upper extremity support Static Standing-Level of Assistance: Moderate assistance Static Standing - Interventions: ASH HANDLER Dynamic Standing Balance Dynamic Standing-Balance Support: Left upper extremity support Dynamic Standing-Balance: Lateral weight shifts, Anterior/Posterior weight shifts Dynamic Standing Level of Assistance: Maximum assistance Therapeutic Activity (20 minutes) Patient tolerated various forms of functional mobility including sit to stands and static/dynamic balance at sink performing ADL's. While standing at sink, patient required max verbal and tactile cues to maintain knee ext and prevent buckling. Patient also given verbal cues and postural correctionsto find midline and maintain upright posture. Increased time required to perform elda care and for seated rest breaks 2/2 fatigue. Vitals remained stable throughout session, RN notified. Gait Training (19 minutes) Device: Leslie rail Apparatus: Left Assistance: Maximum assistance, Maximum verbal cues, Maximum tactile cues, Loss of balance, Additional assist utilized for safety, Chair follow Distance: 4ft + 8ft + 2ft Gait Analysis: poor postural control with posterior lean, decreased sequencing of UE/LE, R truncal rotation, decreased L weight shift, decreased R step progression, decreased R stance control, R kneebuckling duing stance Gait Training Interventions: PT provided max tacitle cue to pelvis/trunk to facilitate proximal stability/control, tactile cue to pelvis to facilitate L weight shift and to dependently advance RLE, tactile cue to stabilize R knee in stance to prevent buckling. PT provided prior visual demo and verbal cues throughout for sequencing. Assessment Patient tolerated various forms of mobility without adverse effects. Patient demonstrated significant improvements in walking endurance made evident by ability to increase distance by more than double. Patient also able to increase static and dynamic standing balance time prior to fatigue. Patient continues to be at an increased risk for falls. Patient will continue to benefit from skilled PT services while in the hospital to improve tolerance and endurance with upright mobility, increase strength, improve motor control, improve gait mechanics, progress mobility as appropriate, and maximize independence and safety with all functional mobility. PT Recommendations Discharge Destination: Acute rehab Discharge Equipment: Defer to facility Plan Continue with current PT plan of care. PT Goals PT GOAL DETAILS Goal Established Date Time Frame Goal Status PT Goal 1: Pt will perform supine<>sit with Autumn. 08/28/25 2 weeks PT Goal 2: Pt will perform sit to stands and bed to chair transfer with Autumn. 08/28/25 2 weeks PT Goal 3: Pt will perform dynamic sitting balance at edge of bed with CGA, > than 5 minutes with stable vital signs. 08/28/25 2 weeks PT Goal 4: Pt and pt's family will verbalize HEP and discharge recommendations prior to discharge from [facility]. 08/28/25 2 weeks Written by Olamide Perez on 09/08/25 at 2:27 PM. * Progress Notes - Jennifer Salas - 09/08/2025 2:19 PM EST Occupational Therapy Treatment Patient Name: Lyla Warren Today's Date: 09/08/2025 OT Discharge Recommendations: Acute rehab Equipment Recommended: Defer to facility Subjective Patient agreeable to OT treatment following RN's consent. Patient reports I want to go home , easily redirectable throughout session, eager to participate in OT session. Participants in Care Family/Caregiver Present: No Presentation Oxygen Therapy: None (Room air) Lines and Tubes: Intravenous access, Telemetry (purewick) Pre-Session: Sitting in chair, Chair alarm, Lines intact Pre-Session Comments: c-collar doffed at time of arrival, donned c-collar prior to mobilization Post-Session: Sitting in chair, Chair alarm, Lines intact, RN notified, Call light in reach Post-Session Comments: all needs met, c-collar donned, positioned for pressure relief and comfort Orthoses: C-Collar Precautions Medical Precautions: Spinal Spinal Precautions : C-collar at all times Medical Precautions: SBP < 150 Objective Pain Patient denies pain throughout session. Patient provided with cuing throughout activity for pain management techniques and provided with repositioning for comfort and pressure relief. Delirium Screening RASS: Alert and calm Confusion Assessment Method-ICU (CAM-ICU/PCAM-ICU) Feature 1: Acute Onset or Fluctuating Course: Positive Feature 2: Inattention: Positive Feature 3: Altered Level of Consciousness: Negative Feature 4: Disorganized Thinking: Positive Overall CAM-ICU/PCAM-ICU: Positive Cognition Cognition Overall Cognitive Status: Impaired Arousal/Alertness: Appropriate responses to stimuli Mood/Behavior: Alert, Impulsive, Distractible, Anxious, Confused Orientation Level: Oriented X4 Single Step Commands: With increased time, With repetition, 100% of the time Multi-Step Commands: 50% of the time, With increased time, With repetition Method of Communication: Expressive aphasia, Verbal, pt expresses frustration with expressive aphasia Safety Judgment: Decreased awareness of need for assistance Awareness of Errors: Assistance required to identify errors made, Assistance required to correct errors made Deficit Awareness: Decreased awareness of deficits Attention Span: Attends with cues to redirect Self-Care Interventions Self Care/Home Management (ADLs) Time Entry: 30 Feeding Feeding Level of Assistance: Setup, Minimum assistance Feeding Where Assessed: Chair Level Feeding Interventions: min A for set up of food tray items 2/2 R hand hemiplegia, increased cuing for adapted technique using unilateral L hand technique, pt completes hand to mouth/drink system and utensils mod I using L hand Grooming Grooming Level of Assistance: Setup, Maximum assistance Grooming Where Assessed: Standing sinkside Grooming Interventions: pt requires max A for upright posture/balance standing at sink x2 min totalfor oral care and face washing completion, pt requires max A for blocking of R knee in standing with max A for appropriate R hand placement to tabletop for proprioceptive input through palm with R UEextended, pt requires max cuing for balance and postural corrections, with max step by step cues for task initiation, sequencing, safety, and self monitoring throughout basic grooming task completion, max cuing provided for visual attention to mirror for visual feedback with posture and balance corrections to midline, pt requires max A for stand>sit following completion 2/2 fatigue UE Dressing UE Dressing Level of Assistance: Maximum assistance UE Dressing Where Assessed: Chair level UE Dressing Interventions: pt requires dep A for donning of c-collar in reclined position from bedside chair prior to mobilization, pt requires max A for gown adjustments in standing Lower Extremity Dressing Sock Level of Assistance: Setup, Maximum assistance (L sock) Adult Briefs Level of Assistance: Dependent, Setup (dep A for brief management in standing at chairfollowing incontinence episode of bowel) LE Dressing Where Assessed: Chair level LE Dressing Interventions: pt requires increased cuing for task initiation, sequencing, safety, andself monitoring throughout LB dressing task completion, pt with R, posterior lean 2/2 proprioceptive limitations causing repetitive losses of sitting balance with attempts to anteriorly reach with clothing manipulation and adjustments Toileting Toileting Level of Assistance: Setup, Dependent Toileting Interventions: pt is incontinent of bowels during session, requiring dep A for brief management (doffing of soiled brief, donning of clean brief), pt requires dep A for elda care (anterior and posterior) in standing with max A for standing balance with R knee blocked, pt requires dep A for replacement of purewick in sitting Bed Mobility Bed Mobility Interventions: not performed this date as patient was in bedside chair at start of session and requests to remain in bedside chair at end of session. Transfers Transfer Exam: Sit to stand Level of [place]: Moderate assist (50% patient's effort) Physical/Nonphysical Assist: Supervision, Verbal Cues, Maximal cues Assistive Device: Hand held assist Transfer Exam: Stand to Sit Level of [place]: Moderate assist (50% patient's effort) Physical/Nonphysical Assist: Set-up required, Supervision, Verbal Cues, Additional assist utilized for safety, Nonverbal cues (demo/gestures) Assistive Device: Hand held assist Patient completes 4 sit>stand reps total. Max cuing for visual attention and use of joint protection techniques to R UE throughout transfers/ambulation (below) Functional Mobility Assistance: Maximum assistance, Maximum tactile cues, Maximum verbal cues, Chair follow, Loss of balance Distance : x4ft+8ft+2ft, < household simulated distances Balance Postural Appearance Posture: Weight shift right of midline, Weight shift posterior to midline, Stooped posture Trunk Control: fair, min A Righting Reactions: fair Protective Reactions: fair Static Sitting Balance Static Sitting-Balance Support: Left upper extremity support, Feet supported Static Sitting-Level of Assistance: Contact guard Stating Sitting - Interventions: from chair Dynamic Sitting Balance Dynamic Sitting-Balance Support: Left upper extremity support, Feet supported Dynamic Sitting-Balance: Lateral weight shifts, Anterior/Posterior weight shifts, Reaching for objects Level of Assistance: Minimum assistance Dynamic Sitting - Interventions: from chair Static Standing Balance Static Standing-Balance Support: Left upper extremity support Static Standing-Level of Assistance: Moderate assistance Static Standing - Interventions: ASH HANDLER Dynamic Standing Balance Dynamic Standing-Balance Support: Left upper extremity support Dynamic Standing-Balance: Lateral weight shifts, Anterior/Posterior weight shifts Dynamic Standing Level of Assistance: Maximum assistance Dynamic Standing - Interventions: ASH HANDLER to L UE Therapeutic Exercise (10 minutes) Patient completes 1 rep x10 each R UE self-AAROM activities, max cuing for appropriate technique, body mechanics, and joint protection strategies, pt requires mod A for achievement of full shoulder ROM 2/2 R UE increased weight and L UE weakness impeding on full manipulation throughout available range, pt reports no pain throughout completion, educated pt on importance of cont'd HEP completion hourly with appropriate R UE positioning in elevation following completion, as well as use of visual compensatory techniques and joint protection strategies throughout completion, pt reports fair understanding Assessment Patient progressing well toward OT goals, continue with cognitive, safety, strength, balance, endurance and activity tolerance training in prep for ADL/IADL tasks as pt continues to be limited by R hemiparesis, R inattention, generalized weakness, deconditioning, AMS/impulsivity, difficulty completing functional transfers, instability in standing, and intermittent pain. Patient remains at high risk for falling with increased assist from staff for basic self care routines and transfers. Continuewith OT POC and discharge recommendations. Patient appears most appropriate for discharge to inpatient acute rehab facility prior to return home for the following rational; - patient is unable to complete the most basic of ADL/self care routine tasks using modified independent/safe technique - patient is unable to complete functional transfers independently/safely using adapted technique/DME - patient is unable to independently navigate home environment safely in prep for self care task completion - patient is unable to safely navigate entrance/exit to home in the event of a hypothetical emergency situation - patient is at HIGH risk for falling, thus resulting in high re-hospitalization risk - patient demonstrates the ability to participate and appropriately tolerate participation in 3 hours of daily skilled rehab disciplines - patient currently requires/would benefit from cont'd medical oversight for multiple medical co-morbidities that exist. OT Recommendations Discharge Destination: Acute rehab Discharge Equipment: Defer to facility Plan Patient remains appropriate for current OT POC. Continue OT POC. Goals OT GOAL DETAILS Goal Established Date Time Frame Goal Status OT Goal 1: Pt will be CGA to stand pivot to BSC to complete toileting, bilateral hand held assist 08/28/25 2 weeks OT Goal 2: Pt will be Autumn for sitting balance at EOB to complete singular grooming task 08/28/25 2 weeks OT Goal 3: Pt will be AOx4 2/2 sessions 08/28/25 2 weeks OT Goal 4: Pt will perform multistep commands with 50% accuracy 2/2 sessions to complete ADL task 08/28/25 2 weeks Written by Jennifer Salas on 09/08/25 at 3:07 PM. * Progress Notes - Debra Alfredo S, STUNT DRIVER - 09/08/2025 9:37 AM EST Neurology Stroke Progress Note Subjective: No acute events overnight. The patient is seen and examined this morning while sitting up in bed. She is awake, alert, and actively participates in her exam. She has no new issues/concerns this morning and reports feeling well. Hyponatremia is improving and near baseline. Remains with stable mentation. Leukocytosis has resolved. She is medically ready for rehab. Reviewed plan of care with family at bedside. Discussed the plan of care with nursing. ROS: Patient denied chest pain, difficulty breathing, shortness of breath, difficulty urinating/stooling, or lightheadedness/vertigo. Objective: Vital Signs: Visit Vitals BP 133/80 (BP Location: Left arm, Patient Position: Lying) Pulse 64 Temp 36.8 ??C (98.3 ??F) (Oral) Resp 13 Ht 1.727 m (5' 8 ) Wt 69.5 kg (153 lb 3.5 oz) SpO2 95% BMI 23.30 kg/m?? OB Status Postmenopausal Smoking Status Former BSA 1.83 m?? Laboratory Testing (all labs personally reviewed and interpreted): Results from last 7 days Lab Units 09/07/25 1352 09/05/25 01009/03/25 0642 WBC 10*3/uL 9.75 13.51* 12.70* HEMOGLOBIN g/dL 12.9 14.2 14.3 HEMATOCRIT % 36.9 40.8 41.1 PLATELETS 10*3/uL 407* 393* 392* Results from last 7 days Lab Units 09/08/25 0311 09/07/25 1352 09/06/25 0957 09/05/25 0837 09/05/25 0104 09/03/25 0642 SODIUM mmol/L 134* 132* 133* < > 132* 135* POTASSIUM mmol/L -- 3.9 -- -- 3.7 4.3 CHLORIDE mmol/L -- 98 -- -- 96* 99 CO2 mmol/L -- 24 -- -- 25 24 BUN mg/dL -- 24* -- -- 25* 27* CREATININE mg/dL -- 0.73 -- -- 0.59* 0.61 CALCIUM mg/dL -- 9.1 -- -- 9.2 9.3 GLUCOSE mg/dL -- 155* -- -- 174* 174* < > = values in this interval not displayed. Results from last 7 days Lab Units 09/07/25 1352 09/05/25 0104 MAGNESIUM mg/dL 2.0 2.1 Medications: Current Scheduled Medications[1] PRN Current PRN Medications[2] Physical Exam: Constitutional: Patient in no acute distress. Patient appears stated age. C- collar in place Ears, Nose, Mouth, Throat: Mucous membranes appear moist. No appreciable hearing impairment. Nares patent. Eyes: PERRLA @ 3mm, Anicteric sclera. No appreciable conjunctival injection. Cardiovascular: Radial pulse patent. No appreciable murmurs, gallops, or rubs. No appreciably irregular rhythm. No appreciable edema. Respiratory: Clear to auscultation throughout on room air. Symmetric chest expansion. Non-labored breathing. Gastrointestinal: Soft, nontender, nondistended. Normoactive bowel sounds x 4. Genitourinary: No appreciable bladder distention. Musculoskeletal: No appreciable joint swelling. No appreciable joint deformities. No appreciable lower extremity warmth or erythema in either leg. Psychiatric: Appropriate mood and affect. Patient is cooperative. Neurological Examination: Mental Status: Alert and oriented to self. Follows two step commands. Language: Moderate expressive aphasia. Trace dysarthria. Concentration and attention full. Cranial Nerves: Aside from mild right central facial palsy, left quadrantanopsia; no appreciable deficit in cranial nerves II-XII. Motor: Normal tone and bulk throughout. Left upper extremity 4/5. Right upper extremity 1/5. Left lower extremity 4/5. Right lower extremity 1/5. Sensory: Sensation mildly decreased to right upper and lower extremity Coordination: No appreciable limb ataxia. Gait: Deferred due to weakness. Assessment/Plan: Lyla Warren is a 60 y.o. female who presented with right side weakness, right facial droop, and hemianopia. Medical history includes ACDF (C4-C5) day prior at OSH, hypothyroidism, diabetes, and HLD. Comprehensive stroke workup completed with diagnosis of left frontal lobe IPH with associated SAH and left M3 branch occlusion secondary to concern for an initial ischemic stroke with subsequent hemorrhagic conversion. 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 - Thrombolytics not given w/ hemorrhage on imaging - Thrombectomy not indicated with no large vessel occlusion - Stroke mechanism: concern for ischemic stroke d/t ESUS and subsequent bleed - Stroke labs include A1C 6.2, TSH 1.44, LDL 78. - CT head: CT head posterior left frontal lobe IPH with SAH - CTA head and neck with no large vessel occlusion, no significant stenosis however noted concerns for moderate narrowing of left LEEROY. - DSA on 08/29/25 with left MCA M3 occlusion with corresponding wedge defect and capillary perfusion defect. - MRI head w/o contrast with posterior left frontal lobe IPH w/ adjacent SAH and IVH. - Transthoracic ECHO showed an EF of 63%, normal LA, and no shunt. - PT/OT recommend Acute rehab - PRINCIPAL GIFTS OFFICER recommend soft/bite sized consistency with thin liquids - PHQ/MoCA: unable to collect due to stroke deficits - Blood pressure goals: normotension - Secondary stroke risk reduction includes high intensity statin and plan for antiplatelet therapy 3 weeks post hemorrhage (~09/17). - Recommend to stop estradiol for hot flashes. - 09/01, stat CT head for increased sedation, delayed responses, and not following commands. Exam returned to baseline upon return to floor. Follow up needs: - PCP as soon as able for continued comorbidity care - [facility] in 3 months for continued stroke care - [facility] Cardiology in 6-8 weeks to evaluate residential monitor results and assess for need for ILR due toconcern for occult Afib as ESUS etiology of stroke #Dysphagia due to stroke POA #Feeding difficulty due to stroke POA - 08/30, MBS with recommendations for IDDSI Level 6- Soft & Bite Sized with IDDSI Level 0-Thin Liquids by single spoon or cup sips only. NO STRAWS. NO CONSECUTIVE SIPS. - 09/03, continues to have poor food intake however, patient continues to report dislike for provided diet an wants to wait for her family to bring her food. - 09/05, improved PO intake, DHT removed. Food preferences and supplements updated per patient and family report - 09/06, PO intake continues to improve #Hypertension POA - Goal for normotension - 08/31, Continue carvedilol 12.5mg BID and will consider starting another agent for SBP above goal. - 09/01, lisinopril 5 mg daily added for ongoing hypertension - 09/03, 1 outlier of hypertension over the last 24 hours, trend without adjustment to antihypertensive regimen at this time #Hx of spinal fusion. - Patient had C4-C5 spinal fusion anterior approach at [facility] on 08/26/[address] Bedoya (Orthopedics department) - Currently has cervical collar in place. - Consulted [facility] who recommended to reach out to Dr. Bedoya about post op recs and keep cervical collar in place until then. - Per orthopedics at [facility], C-collar should be kept in place, can be removed when eating, drinking and showering. Daughter says that was the same instruction she was given by Dr. Bedoya who performed the procedure. - 08/31, Started low dose PRN gabapentin to assist with pain. - 09/01, encouraged use of gabapentin should patient report pain - Has follow up appointmet with Dr. Bedoya ([facility]) on 09/09/25. #Leukocytosis, resolved #UTI, resolved - Has been afebrile and HDS - 08/31, Mildly uptrending today. Will consider a UA. - 09/01, UA unremarkable without s/s of UTI; afebrile, HDS - 09/02, WBC up to 14k; remains afebrile and HDS - 09/03, WBC down to 12k; remains afebrile and HDS. Procalcitonin continues to be unremarkable - 09/05, persistent leukocytosis without overt s/s of infection. Remains afebrile and HDS. - 09/06, reports new dysuria which began last night. Afebrile and HDS. UA showing leukocytes and bacteria; treated with PO fosfomycin #Hyperlipidemia POA - LDL 78 - Continue statin therapy #Diabetes POA - home regimen on metformin 500mg BID - A1C 6.2 - Continue glucose checks with SSI coverage #Depression/anxiety POA - Home cymbalta 60mg daily on hold - Started on effexor 75mg BID during this hospitalization #Thrombocytosis - 09/05, Mildly uptrending. #Uremia #Hyponatremia - 08/31, Mildly uptrending. - 09/03, continues to improve - 09/05, BUN continues to improve. Mildly hyponatremic with Na 134 (after corrected for hyperglycemia). - 09/06, Urine sodium 29, urine osmolality 509, and Na 133. Per UpToDate algorithm, 1L NS administered with repeat urine sodium and osmolality after infusion. - 09/08, Na continues to improve. Stable mentation #Slow transit constipation due to stroke POA - bowel regimen with goal for BM at least every 72 hrs - LBM 09/06 #QT prolongation POA - On admit, QTc 518 - 08/28, QTC 500 - Avoid QT prolonging agents when able #FEN - HLIV - Monitor and replace prn - Soft and bite size #DVT PPX - SCDs and pLov #Dispo - Acute, medically rdy - Code status: Full Code Patient assessment and plan has been discussed with the attending physician. Alfredo Richardson APRN Epic Secure Chat Preferred [1] carvedilol, 12.5 mg, Oral, BID DULoxetine, 60 mg, Oral, Daily enoxaparin, 40 mg, Subcutaneous, Daily iohexol, 300 mL, Other, Once in imaging levothyroxine, 100 mcg, Oral, q AM lisinopril, 5 mg, Oral, Daily mirtazapine, 30 mg, Oral, Nightly polyethylene glycol, 17 g, Oral, BID rosuvastatin, 40 mg, Oral, Nightly senna-docusate, 2 tablet, Oral, BID Insert peripheral IV, , , Once AND Saline lock IV, , , Once AND sodium chloride, 10 mL, Intravenous, q12h AND sodium chloride, 10 mL, Intravenous, PRN [2] acetaminophen, 1,000 mg, Oral, q6h PRN OR acetaminophen, 1,000 mg, Nasogastric, q6h PRN OR acetaminophen, 650 mg, Rectal, q6h PRN bisacodyl, 10 mg, Rectal, Daily PRN gabapentin, 100 mg, Oral, BID PRN melatonin, 6 mg, Oral, Nightly PRN ondansetron, 4 mg, Intravenous, q6h PRN Insert peripheral IV, , , Once AND Saline lock IV, , , Once AND sodium chloride, 10 mL, Intravenous, q12h AND sodium chloride, 10 mL, Intravenous, PRN traZODone, 50 mg, Oral, Nightly PRN * Care Plan - Cecilia Sneed RN - 09/08/2025 7:29 AM EST Problem: Adult Inpatient Plan of Care Goal: Plan of Care Review Outcome: Ongoing, Progressing Goal: Patient-Specific Goal (Individualized) Outcome: Ongoing, Progressing Flowsheets (Taken 09/08/2025725) Patient/Family-Specific Goals (Include Timeframe): Patient will remain free from falls during this shift Individualized Care Needs: Safety Anxieties, Fears or Concerns: None Goal: Absence of Hospital-Acquired Illness or Injury Outcome: Ongoing, Progressing Goal: Optimal Comfort and Wellbeing Outcome: Ongoing, Progressing Problem: Fall Injury Risk Goal: Absence of Fall and Fall-Related Injury Outcome: Ongoing, Progressing Intervention: Identify and Manage Contributors Flowsheets (Taken 09/08/2025726) Medication Review/Management: medications reviewed Self-Care Promotion: independence encouraged Problem: Stroke, Intracerebral Hemorrhage Goal: Optimal Coping Outcome: Ongoing, Progressing Goal: Effective Bowel Elimination Outcome: Ongoing, Progressing Goal: Optimal Cerebral Tissue Perfusion Outcome: Ongoing, Progressing Intervention: Protect and Optimize Cerebral Perfusion Flowsheets (Taken 09/08/2025726) Stabilization Measures: legs elevated Fluid/Electrolyte Management: fluids provided Sensory Stimulation Regulation: care clustered quiet environment promoted Cerebral Perfusion Promotion: blood pressure monitored Goal: Optimal Cognitive Function Outcome: Ongoing, Progressing Goal: Effective Communication Skills Outcome: Ongoing, Progressing Goal: Optimal Functional Ability Outcome: Ongoing, Progressing Goal: Improved Oral Intake Outcome: Ongoing, Progressing Goal: Optimal Pain Control and Function Outcome: Ongoing, Progressing Goal: Effective Oxygenation and Ventilation Outcome: Ongoing, Progressing Goal: Improved Sensorimotor Function Outcome: Ongoing, Progressing Goal: Safe and Effective Swallow Outcome: Ongoing, Progressing Goal: Effective Urinary Elimination Outcome: Ongoing, Progressing Problem: Skin Injury Risk Increased Goal: Skin Health and Integrity Outcome: Ongoing, Progressing Intervention: Optimize Skin Protection Flowsheets (Taken 09/08/2025726) Activity Management: activity adjusted per tolerance Pressure Reduction Techniques: pressure points protected positioned off wounds Pressure Reduction Devices: alternating pressure pump (ARELI) Skin Protection: incontinence pads utilized Head of Bed (HOB) Positioning: HOB elevated Problem: Infection Goal: Absence of Infection Signs and Symptoms Outcome: Ongoing, Progressing Intervention: Prevent or Manage Infection Flowsheets (Taken 09/08/2025726) Infection Management: aseptic technique maintained Fever Reduction/Comfort Measures: lightweight bedding lightweight clothing Isolation Precautions: protective * Progress Notes - Jodie Au - 09/08/2025 6:09 AM EST Stroke Team Interdisciplinary Transition of Care Huddle (STITCH) Patient: Lyla Celis Care Team: Patient Care Team: System, Provider Not In, MD as PCP - General (Family Medicine) diana, acute Jodie Au 09/08/25 6:09 AM * Care Plan - Alyssa Shaw RN - 09/07/2025 8:27 PM EST Problem: Adult Inpatient Plan of Care Goal: Plan of Care Review Flowsheets Taken 09/07/2025 1445 by Sugey Holly RN Progress: improving Plan of Care Reviewed With: patient Taken 09/07/2025 0323 by Nunu Preciado RN Outcome Evaluation: treatment plan and medication regimen discussed with pt and family, both agreeable to plan Goal: Patient-Specific Goal (Individualized) Flowsheets (Taken 09/07/20251999) Patient/Family-Specific Goals (Include Timeframe): pt to remain free of falls Individualized Care Needs: safety Anxieties, Fears or Concerns: none Goal: Absence of Hospital-Acquired Illness or Injury Intervention: Identify and Manage Fall Risk Flowsheets (Taken 09/07/20251444 by Sugey Holly, RN) Safety Promotion/Fall Prevention: activity supervised clutter-free environment maintained safety round/check completed fall prevention program maintained Intervention: Prevent Skin Injury Flowsheets Taken 09/07/20251999 by Alyssa Shaw RN Body Position: weight shifting Taken 09/07/2025322 by Nunu Preciado, RN Skin Protection: incontinence pads utilized Intervention: Prevent and Manage VTE (Venous Thromboembolism) Risk Flowsheets (Taken 09/07/20251999) VTE Prevention/Management: bilateral SCDs (sequential compression devices) on Intervention: Prevent Infection Flowsheets (Taken 09/06/20258 by Carley Garay, SEDA) Infection Prevention: cohorting utilized environmental surveillance performed equipment surfaces disinfected hand hygiene promoted personal protective equipment utilized rest/sleep promoted single patient room provided Goal: Optimal Comfort and Wellbeing Intervention: Monitor Pain and Promote Comfort Flowsheets (Taken 09/07/20252001) Pain Management Interventions: medication (see MAR) Intervention: Provide Person-Centered Care Flowsheets (Taken 09/07/2025322 by Nunu Preciado, RN) Trust Relationship/Rapport: care explained choices provided emotional support provided empathic listening provided questions answered questions encouraged reassurance provided thoughts/feelings acknowledged Problem: Fall Injury Risk Goal: Absence of Fall and Fall-Related Injury Intervention: Identify and Manage Contributors Flowsheets (Taken 09/06/20258 by Carley Garay, RN) Medication Review/Management: medications reviewed Self-Care Promotion: independence encouraged BADL personal routines maintained BADL personal objects within reach Intervention: Promote Injury-Free Environment Flowsheets (Taken 09/07/20251444 by Sugey Holly, RN) Safety Promotion/Fall Prevention: activity supervised clutter-free environment maintained safety round/check completed fall prevention program maintained Problem: Stroke, Intracerebral Hemorrhage Goal: Optimal Coping Intervention: Support Psychosocial Response to Stroke Flowsheets Taken 09/06/20258 by Carley Garay, RN Supportive Measures: active listening utilized decision-making supported positive reinforcement provided self-care encouraged self-responsibility promoted verbalization of feelings encouraged relaxation techniques promoted goal-setting facilitated Taken 09/05/20251750 by Hortencia Quiroz Family/Support System Care: self-care encouraged Goal: Effective Bowel Elimination Intervention: Promote Effective Bowel Elimination Flowsheets (Taken 09/07/2025 1445 by Sugey Holly, RN) Bowel Elimination Management: hygiene measures promoted Bowel Program: maintenance program followed Goal: Optimal Cerebral Tissue Perfusion Intervention: Protect and Optimize Cerebral Perfusion Flowsheets (Taken 09/05/2025 175 by Hortencia Quiroz) Stabilization Measures: legs elevated Fluid/Electrolyte Management: fluids provided Sensory Stimulation Regulation: care clustered quiet environment promoted Cerebral Perfusion Promotion: blood pressure monitored Goal: Optimal Cognitive Function Intervention: Optimize Cognitive Function Flowsheets (Taken 09/05/2025 175 by Hortencia Quiroz) Sensory Stimulation Regulation: care clustered quiet environment promoted Reorientation Measures: clock in view glasses use encouraged Environment Familiarity/Consistency: familiar objects from home provided Goal: Effective Communication Skills Intervention: Optimize Communication Skills Flowsheets (Taken 09/07/2025 0323 by Nunu Preciado, RN) Communication Enhancement Strategies: one-step directions provided repetition utilized extra time allowed for response communication board used call light answered in person verbal communication attempts encouraged Goal: Optimal Functional Ability Intervention: Optimize Functional Ability Flowsheets Taken 09/07/20251999 by Alyssa Shaw RN Activity Management: activity adjusted per tolerance Taken 09/06/20258 by Carley Garay RN Self-Care Promotion: independence encouraged BADL personal routines maintained BADL personal objects within reach Taken 09/05/2025 175 by Hortencia Quiroz Adaptive Equipment Use: use encouraged Goal: Improved Oral Intake Intervention: Promote and Optimize Fluid and Food Intake Flowsheets (Taken 09/06/2025 000 by Carley Garay, SEDA) Oral Nutrition Promotion: rest periods promoted Nutrition Interventions: food preferences provided meals from home/family encouraged Goal: Optimal Pain Control and Function Intervention: Monitor and Manage Pain Flowsheets Taken 09/07/20252001 Pain Management Interventions: medication (see MAR) Taken 08/29/2025 2308 Complementary Therapy: (ice packs) other (see comments) Spiritual Activities Assistance: affirmation provided Sleep/Rest Enhancement: regular sleep/rest pattern promoted Goal: Effective Oxygenation and Ventilation Intervention: Optimize Oxygenation and Ventilation Flowsheets Taken 09/07/20251999 by Alyssa Shaw, SEDA Head of Bed (HOB) Positioning: HOB elevated Taken 09/07/2025 0800 by Sugey Holly RN Cough And Deep Breathing: done with encouragement Taken 08/30/2025 1149 by Carlos Lovell RN Airway/Ventilation Management: pulmonary hygiene promoted Goal: Improved Sensorimotor Function Intervention: Optimize Range of Motion, Motor Control and Function Flowsheets Taken 09/07/20251999 by Alyssa Shaw RN Range of Motion: active ROM (range of motion) encouraged Taken 09/05/20251750 by Hortencia Quiroz Positioning: Shoulder: protection of affected arm encouraged Positioning/Transfer Devices: pillows Taken 08/29/20252307 by Alyssa Shaw RN Spasticity Management: weight-bearing facilitated Intervention: Optimize Sensory and Perceptual Ability Flowsheets Taken 09/07/20251444 by Sugey Holly RN Pressure Reduction Devices: alternating pressure pump (ARELI) pressure-redistributing mattress utilized Taken 09/07/2025 0323 by Nunu Preciado RN Pressure Reduction Techniques: positioned off wounds weight shift assistance provided heels elevated off bed frequent weight shift encouraged Taken 08/29/20252307 by Alyssa Shaw RN Sensation Impairment Protection: cues provided for safety Goal: Safe and Effective Swallow Intervention: Optimize Eating and Swallowing Flowsheets Taken 09/05/20251750 by Hortencia Quiroz Aspiration Precautions: awake/alert before oral intake upright posture maintained food consistency adjusted Swallowing Interventions: Dysphagia: foods moistened food placed on left side upright position maintained 45 mins after intake Feeding/Eating Techniques: feeding assistance provided Taken 08/29/20252307 by Alyssa Shaw RN Swallowing Method: other (see comments) Goal: Effective Urinary Elimination Intervention: Promote Effective Bladder Elimination Flowsheets (Taken 09/05/20251750 by Hortencia Quiroz) Urinary Elimination Promotion: absorbent pad/diaper use encouraged Problem: Skin Injury Risk Increased Goal: Skin Health and Integrity Intervention: Optimize Skin Protection Flowsheets Taken 09/07/20251999 by Alyssa Shaw RN Activity Management: activity adjusted per tolerance Head of Bed (HOB) Positioning: HOB elevated Taken 09/07/20251444 by Sugey Holly RN Pressure Reduction Devices: alternating pressure pump (ARELI) pressure-redistributing mattress utilized Taken 09/07/2025 0323 by Nunu Preciado, RN Pressure Reduction Techniques: positioned off wounds weight shift assistance provided heels elevated off bed frequent weight shift encouraged Skin Protection: incontinence pads utilized Intervention: Promote and Optimize Oral Intake Flowsheets (Taken 09/06/2025 0009 by Carley Garay, RN) Oral Nutrition Promotion: rest periods promoted Nutrition Interventions: food preferences provided meals from home/family encouraged Problem: Infection Goal: Absence of Infection Signs and Symptoms Intervention: Prevent or Manage Infection Flowsheets (Taken 09/07/2025 1445 by Sugey Holly, RN) Infection Management: aseptic technique maintained Fever Reduction/Comfort Measures: lightweight bedding lightweight clothing Isolation Precautions: precautions maintained * Progress Notes - Carley Buck - 09/07/2025 3:47 PM EST RE-EVALUATION MODIFIED BARIUM SWALLOW STUDY Patient Name: Lyla Warren Age: 60 y.o. Today's Date: 09/07/2025 Recommendations: Up to Regular diet (IDDSI Level 7) and Thin liquids (IDDSI Level 0) via single drinks, straws okay, liquid wash + cleansing swallow after regular solids, meds up to whole in puree/pudding, oral care q6h. If pt desires thin via sequential sips recommend cough to clear possible vestibular residue. Can consider Easy to Chew diet (IDDSI 7) pending pt preference. 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 History Medical History: Lyla Warren is a 60 y.o. female who presented with right side weakness, rightfacial droop, and hemianopia. Medical history includes ACDF (C4-C5) day prior at OSH, hypothyroidism, diabetes, and HLD. 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 Current diet: Adult diet Diet texture: Soft & Bite Sized 6 Subjective Pt alert and cooperative during study. Objective Respiratory Status: room air Vitals: 09/07/25 1210 BP: 120/84 Pulse: 73 Resp: 14 Temp: 37.1 ??C (98.7 ??F) SpO2: 95% Lab Results Component Value Date WBC 9.75 09/07/2025 Location of procedure: [facility] suite Projections: lateral view only Oral phase -Lip closure: No labial escape (informally assessed) -Tongue Control During Bolus Hold: Cohesive bolus between tongue and palatal seal -Bolus Preparation/Mastication: Disorganized with solid pieces of bolus left unchewed -Bolus Transport/Lingual Motion: Slowed -Oral Residue/Amount: Less than half the bolus remaining -Oral Residue Location: Tongue, Palate, and Lateral sulci Pharyngeal phase: -Swallow initiation: WFL -Soft palate elevation: No bolus between soft palate/pharyngeal wall -Laryngeal elevation: Complete -Anterior hyoid excursion: Complete -Epiglottic inversion: Partial -Vestibule closure: Complete -Stripping wave: Present -Pharyngeal contraction: not assessed in lateral plane 2/2 mode of transport (bed) -BOT retraction: Incomplete - Pharyngeal residue amount: Collection - Pharyngeal residue location: Valleculae -UES: Complete distension PENETRATION/ASPIRATION: Consistency & Method of Administration 1 2 3 4 5 6 7 8 Comments Thin liquids via tsp (IDDSI Level 0) [] [x] [] [] [] [] [] [] Thin liquids via single cup (IDDSI Level 0) [x] [] [] [] [] [] [] [] Thin liquids via single straw (IDDSI Level 0) [x] [] [] [] [] [] [] [] Thin liquids via consecutive straw (IDDSI Level 0) [] [] [] [] [x] [] [] [] 5 - penetration during (interswallow) Pudding (IDDSI Level 4) [x] [] [] [] [] [] [] [] Regular (IDDSI Level 7) [x] [] [] [] [] [] [] [] Description of Penetration/Aspiration Scale [Ref.1]: 1. Material does not enter the airway. 2. Material enters the airway, remains above the vocal folds, and is ejected from the airway. 3. Material enters the airway, remains above the vocal folds, and is not ejected from the airway. 4. Material enters the airway, contacts the vocal folds, and is ejected from the airway. 5. Material enters the airway, contacts the vocal folds, and is not ejected from the airway. 6. Material enters the airway, passes below the vocal folds, and is ejected into the larynx or out of the airway. 7. Material enters the airway, passes below the vocal folds, and is not ejected from the trachea despite effort. 8. Material enters the airway, passes below the vocal folds, and no effort is made to eject. Assessment Patient presents with mild oropharyngeal dysphagia, per the Dysphagia Outcome and Severity Scale (JL) [Ref.2]. Oral phase c/b slowed lingual motion, disorganized and prolonged mastication of regular solid, and oral residue (reduced spontaneously with cleansing swallows). Pharyngeal phase c/b impaired airway protection with consecutive drinks and pharyngeal inefficiency with solids. Penetration noted during the swallow with consecutive drinks of thin liquids 2/2 mistiming of laryngeal vestibular closure. Penetrated material consisted of trace amounts along laryngeal surface of epiglottis or posterior true vocal folds. With verbal cues, pt successfully ejected with cough and re- swallow. Single drinks improved airway protection-- no penetration or aspiration noted with single cup or straw drinks of thin liquids. Pharyngeal efficiency reduced 2/2 incomplete tongue base retraction and epiglottic inversion, resulting in collection of regular solids in vallecular space. Liquid wash with cued effortful swallow effectively cleared pharyngeal solid residue. Given the results of this study, the probability of dysphagia-related pulmonary complications remains reduced with strategies. Prognosis: Good for improved function with skilled speech pathology services focusing on stated goals. Patient Education was provided via verbal instruction to patient re: results of study. Functional Oral Intake Scale (FOIS): [Ref.3] [] Level 1 - No oral intake [] Level 2 - Tube dependent with minimal attempts of food or liquid. [] Level 3 - Tube dependent with consistent oral intake of food or liquid. [] Level 4 - Total oral diet of a single consistency. [x] Level 5 -Total oral diet with multiple consistencies, but required special preparation or compensations. [] Level 6 - Total oral diet with multiple consistencies without special preparation, but with specific food limitations. [] Level 7 -Total oral diet with no restrictions. Plan / Recommendations Diet recommendations: Up to Regular diet (IDDSI Level 7) and Thin liquids (IDDSI Level 0) via single drinks, straws okay, liquid wash + cleansing swallow after regular solids, meds up to whole in puree/pudding, oral care q6h. If pt desires thin via sequential sips recommend cough to clear possible vestibular residue. Therapy Frequency: 1x week for 2 weeks F/u Imaging: if clinically indicated Goals: - Pt will demonstrate independent recall of single drink strategy or cough after sequential sips ofthins without cues. - Pt will demonstrate adequate tolerance of Regular diet and Thin liquids without dysphagia-relatedpulmonary compromise. - Participate in exercise-based dysphagia therapy to improve swallowing physiology. - Participate in oral infection control program. Results and recommendations of this evaluation were communicated to: RN/Team Electronically Signed by: Carley Buck - 09/07/2025 - 3:47 PM References: [1] Blue Salgado., Blue Sanchez., Chela Cha., Blue Bauer., & Kenroy, Blue Su. (1995). A penetration-aspiration scale. Dysphagia, 11(2), 93-98. [2] O'Alvaro, K. H., Anatoliy Nicholas, Blue Licona, & Lauren Nick (1999). The Dysphagia Outcome and Severity Scale. Dysphagia, 14(3), 139-145. [3] Anatoliy Smith., Ary Mckee., & Gail, Anatoliy Merritt. (2005). Initial psychometric assessment of a functional oral intake scale for dysphagia in stroke patients. Archives of physical medicine and rehabilitation, 86(8), 5584-2648. * Care Plan - Sugey Holly RN - 09/07/2025 2:47 PM EST Problem: Adult Inpatient Plan of Care Goal: Plan of Care Review Outcome: Ongoing, Progressing Flowsheets (Taken 09/07/2025 1445) Progress: improving Plan of Care Reviewed With: patient Goal: Patient-Specific Goal (Individualized) Outcome: Ongoing, Progressing Flowsheets (Taken 09/07/2025 1445) Patient/Family-Specific Goals (Include Timeframe): pt will remain free from falls/ injury during shift Individualized Care Needs: safety Anxieties, Fears or Concerns: none Goal: Absence of Hospital-Acquired Illness or Injury Outcome: Ongoing, Progressing Goal: Optimal Comfort and Wellbeing Outcome: Ongoing, Progressing Problem: Fall Injury Risk Goal: Absence of Fall and Fall-Related Injury Outcome: Ongoing, Progressing Intervention: Promote Injury-Free Environment Flowsheets (Taken 09/07/2025 1445) Safety Promotion/Fall Prevention: activity supervised clutter-free environment maintained safety round/check completed fall prevention program maintained Problem: Stroke, Intracerebral Hemorrhage Goal: Optimal Coping Outcome: Ongoing, Progressing Goal: Effective Bowel Elimination Outcome: Ongoing, Progressing Intervention: Promote Effective Bowel Elimination Flowsheets (Taken 09/07/2025 1445) Bowel Elimination Management: hygiene measures promoted Bowel Program: maintenance program followed Goal: Optimal Cerebral Tissue Perfusion Outcome: Ongoing, Progressing Goal: Optimal Cognitive Function Outcome: Ongoing, Progressing Goal: Effective Communication Skills Outcome: Ongoing, Progressing Goal: Optimal Functional Ability Outcome: Ongoing, Progressing Goal: Improved Oral Intake Outcome: Ongoing, Progressing Goal: Optimal Pain Control and Function Outcome: Ongoing, Progressing Goal: Effective Oxygenation and Ventilation Outcome: Ongoing, Progressing Goal: Improved Sensorimotor Function Outcome: Ongoing, Progressing Goal: Safe and Effective Swallow Outcome: Ongoing, Progressing Goal: Effective Urinary Elimination Outcome: Ongoing, Progressing Problem: Skin Injury Risk Increased Goal: Skin Health and Integrity Outcome: Ongoing, Progressing Intervention: Optimize Skin Protection Flowsheets (Taken 09/07/2025 1445) Activity Management: activity adjusted per tolerance Pressure Reduction Devices: alternating pressure pump (ARELI) pressure-redistributing mattress utilized Head of Bed (HOB) Positioning: HOB at 45 degrees Problem: Infection Goal: Absence of Infection Signs and Symptoms Outcome: Ongoing, Progressing Intervention: Prevent or Manage Infection Flowsheets (Taken 09/07/2025 1445) Infection Management: aseptic technique maintained Fever Reduction/Comfort Measures: lightweight bedding lightweight clothing Isolation Precautions: precautions maintained * Progress Notes - Alfredo Richardson APRN - 09/07/2025 11:24 AM EST Neurology Stroke Progress Note Subjective: No acute events overnight. The patient is seen and examined this morning while sitting up in bed. She is awake, alert, and actively participates in her exam. She has no new issues/concerns this morning and reports feeling well. For her hyponatremia, have changed her back to duloxetine from venlafaxine. She has been asymptomatic with stable mentation. She is eager to begin rehab. Reviewed plan of care with family at bedside. Discussed the plan of care with nursing. ROS: Patient denied chest pain, difficulty breathing, shortness of breath, difficulty urinating/stooling, or lightheadedness/vertigo. Objective: Vital Signs: Visit Vitals BP 122/73 (BP Location: Left arm, Patient Position: Lying) Pulse 69 Temp 37 ??C (98.6 ??F) (Oral) Resp 17 Ht 1.727 m (5' 8 ) Wt 69.5 kg (153 lb 3.5 oz) SpO2 97% BMI 23.30 kg/m?? OB Status Postmenopausal Smoking Status Former BSA 1.83 m?? Laboratory Testing (all labs personally reviewed and interpreted): Results from last 7 days Lab Units 09/05/2510309/03/2564109/02/25 0313 WBC 10*3/uL 13.51* 12.70* 14.14* HEMOGLOBIN g/dL 14.2 14.3 14.3 HEMATOCRIT % 40.8 41.1 40.8 PLATELETS 10*3/uL 393* 392* 341 Results from last 7 days Lab Units 09/06/25 0957 09/05/25 0837 09/05/25 01009/03/25 0642 09/01/25 0219 SODIUM mmol/L 133* 133* 132* 135* 136 POTASSIUM mmol/L -- -- 3.7 4.3 3.9 CHLORIDE mmol/L -- -- 96* 99 101 CO2 mmol/L -- -- 25 24 23 BUN mg/dL -- -- 25* 27* 34* CREATININE mg/dL -- -- 0.59* 0.61 0.62 CALCIUM mg/dL -- -- 9.2 9.3 9.6 BILIRUBIN TOTAL mg/dL -- -- -- -- 0.8 ALKALINE PHOSPHATASE U/L -- -- -- -- 108 ALT U/L -- -- -- -- 20 AST U/L -- -- -- -- 24 GLUCOSE mg/dL -- -- 174* 174* 167* Results from last 7 days Lab Units 09/05/25 0104 09/01/25 0219 MAGNESIUM mg/dL 2.1 2.0 Medications: Current Scheduled Medications[1] PRN Current PRN Medications[2] Physical Exam: Constitutional: Patient in no acute distress. Patient appears stated age. C- collar in place Ears, Nose, Mouth, Throat: Mucous membranes appear moist. No appreciable hearing impairment. Nares patent. Eyes: PERRLA @ 3mm, Anicteric sclera. No appreciable conjunctival injection. Cardiovascular: Radial pulse patent. No appreciable murmurs, gallops, or rubs. No appreciably irregular rhythm. No appreciable edema. Respiratory: Clear to auscultation throughout on room air. Symmetric chest expansion. Non-labored breathing. Gastrointestinal: Soft, nontender, nondistended. Normoactive bowel sounds x 4. Genitourinary: No appreciable bladder distention. Musculoskeletal: No appreciable joint swelling. No appreciable joint deformities. No appreciable lower extremity warmth or erythema in either leg. Psychiatric: Appropriate mood and affect. Patient is cooperative. Neurological Examination: Mental Status: Alert and oriented to self. Follows two step commands. Language: Moderate expressive aphasia. Trace dysarthria. Concentration and attention full. Cranial Nerves: Aside from mild right central facial palsy, left quadrantanopsia; no appreciable deficit in cranial nerves II-XII. Motor: Normal tone and bulk throughout. Left upper extremity 4/5. Right upper extremity 1/5. Left lower extremity 4/5. Right lower extremity 1/5. Sensory: Sensation mildly decreased to right upper and lower extremity Coordination: No appreciable limb ataxia. Gait: Deferred due to weakness. Assessment/Plan: Lyla Warren is a 60 y.o. female who presented with right side weakness, right facial droop, and hemianopia. Medical history includes ACDF (C4-C5) day prior at OSH, hypothyroidism, diabetes, and HLD. Comprehensive stroke workup completed with diagnosis of left frontal lobe IPH with associated SAH and left M3 branch occlusion secondary to concern for an initial ischemic stroke with subsequent hemorrhagic conversion. 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 - Thrombolytics not given w/ hemorrhage on imaging - Thrombectomy not indicated with no large vessel occlusion - Stroke mechanism: concern for ischemic stroke d/t ESUS and subsequent bleed - Stroke labs include A1C 6.2, TSH 1.44, LDL 78. - CT head: CT head posterior left frontal lobe IPH with SAH - CTA head and neck with no large vessel occlusion, no significant stenosis however noted concerns for moderate narrowing of left LEEROY. - DSA on 08/29/25 with left MCA M3 occlusion with corresponding wedge defect and capillary perfusion defect. - MRI head w/o contrast with posterior left frontal lobe IPH w/ adjacent SAH and IVH. - Transthoracic ECHO showed an EF of 63%, normal LA, and no shunt. - PT/OT recommend Acute rehab - PRINCIPAL GIFTS OFFICER recommend soft/bite sized consistency with thin liquids - PHQ/MoCA: unable to collect due to stroke deficits - Blood pressure goals: normotension - Secondary stroke risk reduction includes high intensity statin and plan for antiplatelet therapy 3 weeks post hemorrhage (~09/17). - Recommend to stop estradiol for hot flashes. - 09/01, stat CT head for increased sedation, delayed responses, and not following commands. Exam returned to baseline upon return to floor. Follow up needs: - PCP as soon as able for continued comorbidity care - [facility] in 3 months for continued stroke care - EP Cardiology in 6-8 weeks to evaluate residential monitor results and assess for need for ILR due toconcern for occult Afib as ESUS etiology of stroke #Dysphagia due to stroke POA #Feeding difficulty due to stroke POA - 08/30, MBS with recommendations for IDDSI Level 6- Soft & Bite Sized with IDDSI Level 0-Thin Liquids by single spoon or cup sips only. NO STRAWS. NO CONSECUTIVE SIPS. - 09/03, continues to have poor food intake however, patient continues to report dislike for provided diet an wants to wait for her family to bring her food. - 09/05, improved PO intake, DHT removed. Food preferences and supplements updated per patient and family report - 09/06, PO intake continues to improve #Hypertension POA - Goal for normotension - 08/31, Continue carvedilol 12.5mg BID and will consider starting another agent for SBP above goal. - 09/01, lisinopril 5 mg daily added for ongoing hypertension - 09/03, 1 outlier of hypertension over the last 24 hours, trend without adjustment to antihypertensive regimen at this time #Hx of spinal fusion. - Patient had C4-C5 spinal fusion anterior approach at [facility] on 08/26/[address] Bedoya (Orthopedics department) - Currently has cervical collar in place. - Consulted [facility] who recommended to reach out to Dr. Bedoya about post op recs and keep cervical collar in place until then. - Per orthopedics at [facility], C-collar should be kept in place, can be removed when eating, drinking and showering. Daughter says that was the same instruction she was given by Dr. Bedoya who performed the procedure. - 08/31, Started low dose PRN gabapentin to assist with pain. - 09/01, encouraged use of gabapentin should patient report pain - Has follow up appointmet with Dr. Bedoya (OSH) on 09/09/25. #Leukocytosis #UTI - Has been afebrile and HDS - 08/31, Mildly uptrending today. Will consider a UA. - 09/01, UA unremarkable without s/s of UTI; afebrile, HDS - 09/02, WBC up to 14k; remains afebrile and HDS - 09/03, WBC down to 12k; remains afebrile and HDS. Procalcitonin continues to be unremarkable - 09/05, persistent leukocytosis without overt s/s of infection. Remains afebrile and HDS. - 09/06, reports new dysuria which began last night. Afebrile and HDS. UA showing leukocytes and bacteria; treated with PO fosfomycin #Hyperlipidemia POA - LDL 78 - Continue statin therapy #Diabetes POA - home regimen on metformin 500mg BID - A1C 6.2 - Continue glucose checks with SSI coverage #Depression/anxiety POA - Home cymbalta 60mg daily on hold - Started on effexor 75mg BID during this hospitalization #Thrombocytosis - 09/05, Mildly uptrending. #Uremia #Hyponatremia - 08/31, Mildly uptrending. - 09/03, continues to improve - 09/05, BUN continues to improve. Mildly hyponatremic with Na 134 (after corrected for hyperglycemia). - 09/06, Urine sodium 29, urine osmolality 509, and Na 133. Per UpToDate algorithm, 1L NS administered with repeat urine sodium and osmolality after infusion. - 09/07, Pending repeat labs #Slow transit constipation due to stroke POA - bowel regimen with goal for BM at least every 72 hrs - LBM 09/06 #QT prolongation POA - On admit, QTc 518 - 08/28, QTC 500 - Avoid QT prolonging agents when able #FEN - HLIV - Monitor and replace prn - Soft and bite size #DVT PPX - SCDs and pLov #Dispo - Acute - Code status: Full Code Patient assessment and plan has been discussed with the attending physician. Alfredo Richardson, NILDA Epic Secure Chat Preferred [1] carvedilol, 12.5 mg, Oral, BID DULoxetine, 60 mg, Oral, Daily enoxaparin, 40 mg, Subcutaneous, Daily iohexol, 300 mL, Other, Once in imaging levothyroxine, 100 mcg, Oral, q AM lisinopril, 5 mg, Oral, Daily mirtazapine, 30 mg, Oral, Nightly polyethylene glycol, 17 g, Oral, BID rosuvastatin, 40 mg, Oral, Nightly senna-docusate, 2 tablet, Oral, BID Insert peripheral IV, , , Once AND Saline lock IV, , , Once AND sodium chloride, 10 mL, Intravenous, q12h AND sodium chloride, 10 mL, Intravenous, PRN [2] acetaminophen, 1,000 mg, Oral, q6h PRN OR acetaminophen, 1,000 mg, Nasogastric, q6h PRN OR acetaminophen, 650 mg, Rectal, q6h PRN bisacodyl, 10 mg, Rectal, Daily PRN gabapentin, 100 mg, Oral, BID PRN melatonin, 6 mg, Oral, Nightly PRN ondansetron, 4 mg, Intravenous, q6h PRN Insert peripheral IV, , , Once AND Saline lock IV, , , Once AND sodium chloride, 10 mL, Intravenous, q12h AND sodium chloride, 10 mL, Intravenous, PRN traZODone, 50 mg, Oral, Nightly PRN * Nursing Note - Prosper Arce - 09/07/2025 11:03 AM EST Stroke Team Interdisciplinary Transition of Care Huddle ([facility]) Patient: Lyla Celis Care Team: Patient Care Team: System, Provider Not In, MD as PCP - General (Family Medicine) Staff Present: Grants Assistant, Acupressure Therapist, Pharmacy, Speech Therapy, Physical/Occupational Therapy, Neuroscience Nurse Navigator, Organ Tuner Electronic, Stroke ARELI, and Stroke Tea Tree Farmer Level of Care: Progressive Status: stable Acute Rec Ready Prosper Arce 09/07/25 11:03 AM * Consults - Antonia Ruvalcaba RD - 09/07/2025 9:25 AM EST Adult Nutrition Evaluation Note Lyla Warren 60 y.o. female CSN: [id number] Room/Bed 117/117A Nutrition evaluation type: follow-up Reason for evaluation: Hospital course: 60 y/o F presenting with Acute L posterior frontal ICH + small SAH (no shift, ICH score 0) after fall with right-sided numbness, s/p spinal fusion. DHT was removed Past medical/ surgical history: Past Medical History[1] Surgical History[2] Social history: Additional comments: Visited room, pt sleeping heavily with blanket over head. No family at bedside. Family is bringing in some meals for pt. Vitals and Basic Assessment: BP: 120/84 Temp: 37.1 ??C (98.7 ??F) Oxygen Therapy: None (Room air) O2 Delivery Method: Nasal cannula Hema Coma Scale Score: 14 Harpreet Scale Score: 16 Rocky/Cubbin Pressure Risk Score: 37 Most Recent BM Date: 09/06/25 GI Symptoms: None Edema: Generalized Allergies: Allergies[3] Medications: Current Scheduled Medications[4] Meds were reviewed: Yes Labs: Lab Results Component Value Date GLUCOSE 155 (H) 09/07/2025 CALCIUM 9.1 09/07/2025 NA 132 (L) 09/07/2025 K 3.9 09/07/2025 CO2 24 09/07/2025 CL 98 09/07/2025 BUN 24 (H) 09/07/2025 CREATININE 0.73 09/07/2025 PHOS 3.9 09/07/2025 MG 2.0 09/07/2025 HGBA1C 6.2 (H) 08/30/2025 Anthropometrics: Height: 172.7 cm (5' 8 ) Weight: 69.5 kg (153 lb 3.5 oz) BMI (Calculated): 23.3 Weight Evaluation: Normal (BMI 18.5-24.9) [place] Body Weight (kg): 63.6 Percent [place] Body Weight: 115 Wt Readings from Last 10 Encounters: 09/06/25 69.5 kg (153 lb 3.5 oz) 08/28/25 75 kg (165 lb 5.5 oz) Estimated Needs: Kcal/ K-30 Kcal Provided: 4501-0455 Kcal Needs Based On: Current weight Gm Protein/ Kg : 1+ Protein Provided: 73+ Protein Needs Based On: Current weight ML/ Kg: Per team or 1 mL/kcal Metabolic Cart Study Results: Current Nutrition Intake: Diet Supplements: Boost Very High Calorie Diet Order: Adult Diet Diet Texture: Soft and Bite Sized 6 Percent Meals Eaten (%): 50% x 3 meals Diet Experience and Nutrition History: Diet Education Provided: Will monitor Pertinent home medications: [place] needs: Nutrition Focused Physical Exam: Unable to Complete Exam: Potential for patient discomfort/ agitation Physical exam performed on (date): Assessment of Malnutrition: Malnutrition Identified: Additional Information Needed Nutrition Problem: Inadequate oral intake related to dysphagia as evidenced by avg intakes >75% of meals. Status of Nutrition Diagnosis: Ongoing Nutrition Interventions and Recommendations: PO per PRINCIPAL GIFTS OFFICER- currently Regular, SBS6 diet but allowed up to Regular per PRINCIPAL GIFTS OFFICER Boost VHC TID Continue appetite stimulant Nutrition Monitoring and Goals: Tolerate PO intake >75% NFPE on follow up as able [place] WNL Acuity Level: 3 Antonia Ruvalcaba, RD, LD [1] No past medical history on file. [2] No past surgical history on file. [3] Allergies Allergen Reactions Gabapentin Hallucinations Pt states she has nightmares that goes on for hours and can't tell difference in reality and dreams [4] carvedilol, 12.5 mg, Oral, BID DULoxetine, 60 mg, Oral, Daily enoxaparin, 40 mg, Subcutaneous, Daily iohexol, 300 mL, Other, Once in imaging levothyroxine, 100 mcg, Oral, q AM lisinopril, 5 mg, Oral, Daily mirtazapine, 30 mg, Oral, Nightly polyethylene glycol, 17 g, Oral, BID rosuvastatin, 40 mg, Oral, Nightly senna-docusate, 2 tablet, Oral, BID Insert peripheral IV, , , Once AND Saline lock IV, , , Once AND sodium chloride, 10 mL, Intravenous, q12h AND sodium chloride, 10 mL, Intravenous, PRN * Care Plan - Nunu Preciado RN - 09/07/2025 3:29 AM EST Problem: Adult Inpatient Plan of Care Goal: Plan of Care Review Outcome: Ongoing, Progressing Flowsheets (Taken 09/07/2025322) Progress: improving Outcome Evaluation: treatment plan and medication regimen discussed with pt and family, both agreeable to plan Plan of Care Reviewed With: patient family Goal: Patient-Specific Goal (Individualized) Outcome: Ongoing, Progressing Goal: Absence of Hospital-Acquired Illness or Injury Outcome: Ongoing, Progressing Goal: Optimal Comfort and Wellbeing Outcome: Ongoing, Progressing Intervention: Provide Person-Centered Care Flowsheets (Taken 09/07/2025322) Trust Relationship/Rapport: care explained choices provided emotional support provided empathic listening provided questions answered questions encouraged reassurance provided thoughts/feelings acknowledged Problem: Fall Injury Risk Goal: Absence of Fall and Fall-Related Injury Outcome: Ongoing, Progressing Intervention: Promote Injury-Free Environment Flowsheets (Taken 09/07/2025322) Safety Promotion/Fall Prevention: safety round/check completed room organization consistent nonskid shoes/slippers when out of bed lighting adjusted activity supervised clutter-free environment maintained fall prevention program maintained toileting scheduled Problem: Stroke, Intracerebral Hemorrhage Goal: Optimal Coping Outcome: Ongoing, Progressing Goal: Effective Bowel Elimination Outcome: Ongoing, Progressing Goal: Optimal Cerebral Tissue Perfusion Outcome: Ongoing, Progressing Goal: Optimal Cognitive Function Outcome: Ongoing, Progressing Goal: Effective Communication Skills Outcome: Ongoing, Progressing Intervention: Optimize Communication Skills Flowsheets (Taken 09/07/2025 0323) Communication Enhancement Strategies: one-step directions provided repetition utilized extra time allowed for response communication board used call light answered in person verbal communication attempts encouraged Goal: Optimal Functional Ability Outcome: Ongoing, Progressing Goal: Improved Oral Intake Outcome: Ongoing, Progressing Goal: Optimal Pain Control and Function Outcome: Ongoing, Progressing Goal: Effective Oxygenation and Ventilation Outcome: Ongoing, Progressing Goal: Improved Sensorimotor Function Outcome: Ongoing, Progressing Goal: Safe and Effective Swallow Outcome: Ongoing, Progressing Goal: Effective Urinary Elimination Outcome: Ongoing, Progressing Problem: Skin Injury Risk Increased Goal: Skin Health and Integrity Outcome: Ongoing, Progressing Intervention: Optimize Skin Protection Flowsheets Taken 09/07/2025 032 Pressure Reduction Techniques: positioned off wounds weight shift assistance provided heels elevated off bed frequent weight shift encouraged Skin Protection: incontinence pads utilized Taken 09/07/2025 0200 Activity Management: activity adjusted per tolerance Head of Bed (HOB) Positioning: HOB at 30-45 degrees Problem: Infection Goal: Absence of Infection Signs and Symptoms Outcome: Ongoing, Progressing Intervention: Prevent or Manage Infection Flowsheets (Taken 09/07/2025322) Infection Management: aseptic technique maintained Fever Reduction/Comfort Measures: lightweight bedding lightweight clothing Isolation Precautions: precautions maintained * Care Plan - Sugey Holly RN - 09/06/2025 3:28 PM EST Problem: Adult Inpatient Plan of Care Goal: Plan of Care Review Outcome: Ongoing, Progressing Flowsheets (Taken 09/06/20251526) Progress: no change Plan of Care Reviewed With: patient Goal: Patient-Specific Goal (Individualized) Outcome: Ongoing, Progressing Flowsheets (Taken 09/06/2025 0800) Patient/Family-Specific Goals (Include Timeframe): pt will remain free from falls/injury during shift Individualized Care Needs: safety Anxieties, Fears or Concerns: none Goal: Absence of Hospital-Acquired Illness or Injury Outcome: Ongoing, Progressing Goal: Optimal Comfort and Wellbeing Outcome: Ongoing, Progressing Problem: Fall Injury Risk Goal: Absence of Fall and Fall-Related Injury Outcome: Ongoing, Progressing Intervention: Promote Injury-Free Environment Flowsheets (Taken 09/06/2025 1527) Safety Promotion/Fall Prevention: clutter-free environment maintained safety round/check completed fall prevention program maintained nonskid shoes/slippers when out of bed Problem: Stroke, Intracerebral Hemorrhage Goal: Optimal Coping Outcome: Ongoing, Progressing Goal: Effective Bowel Elimination Outcome: Ongoing, Progressing Intervention: Promote Effective Bowel Elimination Flowsheets (Taken 09/06/20251526) Bowel Elimination Management: sitting position facilitated hygiene measures promoted relaxation techniques promoted Goal: Optimal Cerebral Tissue Perfusion Outcome: Ongoing, Progressing Goal: Optimal Cognitive Function Outcome: Ongoing, Progressing Goal: Effective Communication Skills Outcome: Ongoing, Progressing Goal: Optimal Functional Ability Outcome: Ongoing, Progressing Goal: Improved Oral Intake Outcome: Ongoing, Progressing Goal: Optimal Pain Control and Function Outcome: Ongoing, Progressing Goal: Effective Oxygenation and Ventilation Outcome: Ongoing, Progressing Goal: Improved Sensorimotor Function Outcome: Ongoing, Progressing Goal: Safe and Effective Swallow Outcome: Ongoing, Progressing Goal: Effective Urinary Elimination Outcome: Ongoing, Progressing Problem: Skin Injury Risk Increased Goal: Skin Health and Integrity Outcome: Ongoing, Progressing Intervention: Optimize Skin Protection Flowsheets (Taken 09/06/20251526) Activity Management: activity adjusted per tolerance Pressure Reduction Techniques: frequent weight shift encouraged heels elevated off bed sit time limited to 2 hours Pressure Reduction Devices: alternating pressure pump (ARELI) pressure-redistributing mattress utilized feet on footrest/footstool positioning supports utilized Skin Protection: incontinence pads utilized Head of Bed (HOB) Positioning: HOB at 30-45 degrees Problem: Infection Goal: Absence of Infection Signs and Symptoms Outcome: Ongoing, Progressing Intervention: Prevent or Manage Infection Flowsheets (Taken 09/06/20251526) Infection Management: aseptic technique maintained Fever Reduction/Comfort Measures: lightweight bedding lightweight clothing Isolation Precautions: precautions maintained * Progress Notes - Luiz Torres CCC-PRINCIPAL GIFTS OFFICER - 09/06/2025 2:07 PM EST Speech Language Pathology Speech / Language / Communication and Clinical Swallow Re-Evaluation Patient Name: Lyla Warren Age: 60 y.o. Today's Date: 09/06/2025 Recommendations: Dysphagia: Continue current diet (IDDSI Level 6- Soft & Bite Sized with IDDSI Level 0-Thin Liquids by single spoon or cup sips only. NO STRAWS. NO CONSECUTIVE SIPS), with plan for repeat MBS pending MD approval/order, to assess for possible diet advancement. Speech/Language/Cognition: ST will follow up for further assessment and tx of speech/language/cognitive deficits, with the goal of facilitating return towards baseline level of function. History/Background Information Lyla Warren is a 60 y.o. female presenting with Acute L posterior frontal ICH + small SAH (no shift, ICH score 0) after fall with right-sided numbness, s/p ACDF 08/26/25. Relevant Imaging: CT Head 09/01- Evolving acute hemorrhagic infarct in the superior left cerebrum. Progression of vasogenic edema surrounding the stable left frontal hematoma since CT exam of 08/28/2025 but relatively stable compared to the most recent MR exam from 08/30/2025. The mass effect results in partial compression of left lateral ventricle, partial effacement of sulci over the superior left cerebrum and a measurable [id number] midline shift (3 mm), minimally increased in the interval. No significant increase in subarachnoid hemorrhage in sulci over the superior left cerebrum. Problem List[1] Past Medical History[2] Surgical History[3] Current diet: Adult diet Diet texture: Soft & Bite Sized 6 Subjective Lyla Warren was alert and cooperative. Identified by name and date of . RN provided verbal consent for evaluation. Objective Risk factors: s/p ACDF (08/26), s/p acute posterior frontal ICH + small SAH, right side numbness/weakness, right side facial asymmetry, dysarthria/apraxia of speech, dysphagia with aspiration on MBS 08/30/25. Current diet: Adult diet Diet texture: Soft & Bite Sized 6 Respiratory Status: room air WBC: 13.51 Vitals: 09/06/25 1200 BP: 116/75 Pulse: 67 Resp: 14 Temp: 36.7 ??C (98 ??F) SpO2: 96% Direction Following: Follows 1 step directions Oral Mechanism Report: Dentition: dentures full Oral hygiene: WFL Focused Cranial Nerve Exam: Trigeminal Nerve (V): facial sensation impaired and mandible strength/ROM impaired Facial Nerve (VII): retraction asymmetry right, impaired protrusion right, and buccinator strength seemingly impaired Vagus (X): not assessed Spinal Accessory (XI): Not assessed Hypoglossal Nerve (XII): seemingly reduced strength Laryngeal Function Exam: Secretion Management: adequate Vocal Quality: adequate Cough: - Volitional adequate Oral Feeding Trials: Positionin-90 degrees Feeding assistance: PRINCIPAL GIFTS OFFICER presented PO trials to patient Consistencies Administered: ice chips, thin liquid via teaspoon, thin liquid via cup, puree via teaspoon, and dry solid consistency Oral Stage: improved oral phase function, with no anterior labial escape with any texture. Mastication of regular solids appears slowed, with mild residue. Liquid wash assisted to clear oral residue. Pharyngeal Stage: no s/s of aspiration on any texture 90 mL water test (Pb & [employer]gerr, 2014): not tested this date COMMUNICATION: Informal assessment revealed the following: Receptive Language Not Impaired Impaired Not Assessed Comments Functional Object Use [] [x] [] Pt appears to have difficulty coordinating use of objects such as phone, utensils, hairbrush etc. Simple yes/no [x] [] [] Complex yes/no [x] [] [] Object Identification [x] [] [] 1-2 Step Command Following [] [x] [] 1 step-100% 2-step-50% with repetition Complex Command Following [] [] [x] Understands Simple Conversation [x] [] [] Understands Complex Conversation [] [] [x] Expressive Language Not Impaired Impaired Not Assessed Comments Nonverbal (gesture / facial expression) [x] [] [] Automatic speech [x] [] [] Correct 1-10 Repetition [] [x] [] Pt able to understand and repeat, but with several speech sound errors and apparent sound groping Open ended phrases [x] [] [] Responsive naming [] [x] [] 50% with mod cues Confrontation naming [x] [] [] 100% Sentence formulation [] [x] [] Pt forms short/appropriate phases with limited content. When describing a picture she stated its a mess, there's dog bed, dog is mess . Conversational speech [] [x] [] Limited content, missing words, speech sound errors Reading/Writing Not Impaired Impaired Not Assessed Comments Reading: [] numbers/letters [] word [] sentences [] paragraphs [] [] [] 2/4 reading short simple words Writing: [] number/letters [] word [] sentences [] paragraphs [] [] [x] Motor Speech Not impaired Impaired Not Assessed Comments Articulation [] [x] [] ~80% intelligible at single word and short phase level, with reduced precision, sound groping and errors, intelligibility is significantly worse with 4+ syllable words and longer phrases. Phonation [x] [] [] Respiration [x] [] [] Resonance [x] [] [] Prosody [x] [] [] Intelligibility in Conversation [] [x] [] Cognition Not Impaired Impaired Not Assessed Comments Orientation [] [x] [] Person [x] [] [] Place [x] [] [] Time [] [x] [] Situation [x] [] [] [x] [] [] Attention [x] [] [] Sustained [x] [] [] Memory [] [x] [] Immediate [x] [] [] Short term [] [x] [] 60% with delayed recall care home [x] [] [] Thought Organization [] [x] [] Divergent [] [x] [] Convergent [] [x] [] Math [] [x] [] Assessment Summary: Dysphagia: Pt demonstrates improved oral phase function, with no anterior labial escape with any texture. Mastication of regular solids appears slowed, with mild residue. Liquid wash assisted to clear oral residue. There was no s/s of aspiration on any texture. Given apparent improvement demonstrated on clinical exam, pt would benefit from repeat MBS pending MD approval/order, to assess for possible diet advancement. Speech/Language/Cognition: Pt demonstrates improved cognitive communication skills, compared to initial exam on 08/28/25. Pt continues to demonstrate deficits with following multi-step commands, completing responsive naming tasks, formulating whole sentences and participating in conversational discourse. Additionally, she demonstrated difficulty orienting to time, completing delayed recall, convergent/divergent and calculation tasks. ST will follow up for further assessment and tx of speech/language/cognitive deficits, with the goal of facilitating return towards baseline level of function. She will likely require continued speech therapy following hospital discharge. Prognosis: Good for improved function with skilled speech pathology services focusing on stated goals. Patient Education: All results and recommendations were reviewed with the pt, who expressed understanding and agreement. Results and recommendations of this evaluation were communicated to: RN/Team Plan / Recommendations Diet recommendations: DDSI Level 6- Soft & Bite Sized with IDDSI Level 0-Thin Liquids by singlespoon or cup sips only. NO STRAWS. NO CONSECUTIVE SIPS. Therapy Frequency: 3x week for 2 week F/u Imaging: repeat MBS pending MD order Goals Swallowing: -tolerate least restrictive diet with no s/s of aspiration, while maintaining adequate nutritional intake -participate in repeat instrumental swallow assessment, as indicated -participate in exercise based dysphagia therapy targeting BOTR, HLEE, epiglottic inversion and LVC Speech/Language/Cognition: -complete responsive naming tasks, to >85% accuracy, with minimal cues -answer basic 'wh' questions, to >85% accuracy, with minimal cues -produce multi-syllable word and phrase repetition exercises, to >85% intelligibility, with minimal cues -complete orientation tasks to 100% with minimal cues -complete delayed recall exercises, with 3 unrelated words, at 1 minute delay, to >85% accuracy,with minimal cues Anrdea Torres M.S., CCC-PRINCIPAL GIFTS OFFICER Speech-Language Pathologist [1] Patient Active Problem List Diagnosis ??? Acute intra-cranial hemorrhage (CMS/HCC) ??? HTN (hypertension) ??? SAH (subarachnoid hemorrhage) ??? Cerebral edema (CMS/HCC) ??? Leukocytosis ??? Hyperglycemia ??? Electrolyte disturbance ??? NSTEMI (non-ST elevated myocardial infarction) ??? Feeding difficulty [2] No past medical history on file. [3] No past surgical history on file. * Nursing Note - Prosper Arce - 09/06/2025 12:55 PM EST Stroke Team Interdisciplinary Transition of Care Huddle (STITCH) Patient: Lyla AdamssarabjitLyla Care Team: Patient Care Team: System, Provider Not In, MD as PCP - General (Family Medicine) Staff Present: Grants Assistant, Acupressure Therapist, Pharmacy, Speech Therapy, Physical/Occupational Therapy, Neuroscience Nurse Navigator, Organ Tuner Electronic, Stroke ARELI, and Stroke Tea Tree Farmer Level of Care: Progressive Status: stable Acute Rec Ready Prosper Arce 09/06/25 12:55 PM * Progress Notes - Naman Melaniekp Merritt - 09/06/2025 11:34 AM EST Physical Therapy Treatment Patient Name: Lyla Warren Today's Date: 09/06/2025 PT Discharge Recommendations: Acute rehab Equipment Recommended: Defer to facility SUBJECTIVE Pt reports her granddaughters are visiting later. Participants in Care Family/Caregiver Present: No PRESENTATION Oxygen None (Room air) Lines and Tubes Female External Urinary Catheter 08/28/25 0230 (Active) Peripheral IV 08/27/25 Posterior;Right Hand (Active) Pre-Session Supine, Head of bed elevated, Lines intact, Bed alarm PT/OT donned c-collar Post-Session Sitting in chair, Chair alarm, Lines intact, RN notified, Call light in reach, SCDs applied Bracing (if applicable) Orthoses: C-Collar Precautions Medical Precautions: Spinal Spinal Precautions : C-collar at all times Medical Precautions: SBP < 150 OBJECTIVE Pain No report of pain. Delirium Screening RASS: Alert and calm Confusion Assessment Method-ICU (CAM-ICU/PCAM-ICU) Feature 3: Altered Level of Consciousness: Negative INTERVENTIONS THERAPEUTIC ACTIVITY Treatment Minutes 8 Interventions Therapist facilitated bed mobility training to improve upright activity tolerance, endurance, strength, and functional mobility. Refer to specific sections for further detail on specific interventions performed. BED MOBILITY Interventions Verbal/tactile cues to initiate, facilitate, and sequence 2/2 impairments with postural control and R sided spastic hemiparesis. Level of [place] Physical/Non- physical Assist Adaptive Equipment Utilized Rolling/ Turning Minimum assist (75% patient effort) (to R and Dep to L) Set-up required, Verbal Cues, Additional assist utilized for safety, Nonverbal cues (demo/gestures) Bed rails Scooting/ Bridging Supine to Sit Dependent Set-up required, Verbal Cues, Additional assist utilized for safety, Nonverbal cues (demo/gestures) Bed rails Sit to Supine GAIT TRAINING Treatment Minutes 8 Interventions Gait Training Interventions: PT provided max tacitle cue to pelvis/trunk to facilitate proximal stability/control, tactile cue to pelvis to facilitate L weight shift and to dependently advance RLE, tactile cue to stabilize R knee in stance to prevent buckling. PT provided prior visualdemo and verbal cues throughout for sequencing. Level of [place] Distance Adaptive Equipment Utilized Gait Maximum assistance, Additional assist utilized for safety 3' x2 trials Leslie rail Gait Analysis poor postural control with posterior lean, decreased sequencing of UE/LE, R truncal rotation, decreased L weight shift, decreased R step progression, decreased R stance control. NEUROMUSCULAR RE-EDUCATION Treatment Minutes 24 Interventions Sitting Balance- Pt sat unsupported at Eob x 8' min in attempt to increase trunk strength/postural control, midline orientation, tolerance to upright position, and sitting balance for participation in upright activities. Pt demonstrated right weight shift/lean. Pt required Max-Moderate (dynamic) and contact guard (static) physical assistance to maintain upright/midline posture. Interventions included BLE support, verbal cues, tactile cues, LUE repositioning further laterally to reduce contraversive pushing and promote midline alignment, and anterolateral reaching contralateral to direction ofpush . [employer] Integrated Therapy System (BITS) Therapist facilitated activities utilizing BITS to assess limits of stability and promote improved postural control in preparation for progression of upright activities. Activity was graded for patient's skill level and progressed as noted below. Patient was monitored throughout for tolerance to activity and facilitated rest breaks as needed to enhance performance. Trial Position Support Activity Feedback 1 sitting stable surface right UE (hand over hand) Reaching left UE, challenging dual-task capability, postural stability, postural orientation with focus on return to midline, weight shifting anterolaterally bilateral visual biofeedback knowledge of results verbal cues tactile cues 2 sitting stable surface- dual task balance with cognition sequencing task right UE (PT hand over pt hand) Reaching left UE, challenging dual-task capability, postural stability, postural orientationwith focus on return to midline, weight shifting anterolaterally bilateral visual biofeedback knowledge of results verbal cues tactile cues TRANSFERS Interventions Verbal/tactile cues for safe UE placement, postural control to pelvis to facilitate anterior weight shift over VIANNEY, R knee support, and eccentric control to sit. Level of [place] Physical/Non- physical Assist Adaptive Equipment Utilized Sit to Stand Moderate assist (50% patient's effort) (x3 trials to/from various surfaces) Hand held assist Stand to sit Moderate assist (50% patient's effort) Set-up required, Supervision, Verbal Cues, Additional assist utilized for safety, Nonverbal cues (demo/gestures) Bed to Chair Moderate assist (50% patient's effort) Sidesteps Set-up required, Supervision, Verbal Cues, Additional assist utilized for safety, Nonverbal cues (demo/gestures) Hand held assist Toilet Transfer Shower Transfer BALANCE Postural Appearance Posture: Weight shift right of midline, Weight shift posterior to midline Level of [place] Balance Support Interventions Static Sit Contact guard Feet supported Dynamic Sit Maximum assistance (to Mod A) Feet supported Dynamic Sitting- Balance: Lateral weight shifts, Anterior/Posterior weight shifts, Reaching for objects, Reaching across midline Static Stand Moderate assistance Left upper extremity support, Right upper extremity support Dynamic Stand Maximum assistance Right upper extremity support, Left upper extremity support Lateral weight shifts, Anterior/Posterior weight shifts ASSESSMENT Pt tolerated session without adverse effects. Pt continues to demonstrate R hemiparesis with painful spasticity in MD KAMILA notified. Pt progressing appropriately with gait training today and dual task balance challenges. Pt continues to require PT assist with mobility 2/2 fall risk and the following impairments: strength, balance, postural control, tone, R sided visual attention, cognition/aphasia. Pt will continue to benefit from skilled physical therapy to reduce fall risk, reduce burden of care, and to optimize post stroke IND with mobility and ADLs. Patient will benefit from continued skilled physical therapy and acute rehab placement upon D/C forthe following reasons: The patient requires the active and ongoing therapeutic interventions of multiple therapy disciplines, one of which must be physical or occupational therapy. The patient is able to participate in 3 hours of therapy 5 days per week. The patient will be expected to actively participate in and benefit significantly from the intensive rehabilitation program, which will be of practical value to improve the patient's functional capacity or adaptation to impairments in a reasonable period. The patient may require physician supervision by a rehabilitation physician three times weekly and 24-hour nursing. The patient requires an intensive and coordinated interdisciplinary approach to providing rehabilitation. The patient's medical and rehab needs cannot be met at a lower level of care, such as a subacute rehab facility, home health, or outpatient therapy. PT Recommendations Discharge Destination: Acute rehab Discharge Equipment: Defer to facility PLAN Continue with established PT plan of care 2 - 5 times per week to progress towards PT goals. PT GOALS PT GOAL DETAILS Goal Established Date Time Frame Goal Status PT Goal 1: Pt will perform supine<>sit with Autumn. 08/28/25 2 weeks PT Goal 2: Pt will perform sit to stands and bed to chair transfer with Autumn. 08/28/25 2 weeks PT Goal 3: Pt will perform dynamic sitting balance at edge of bed with CGA, > than 5 minutes with stable vital signs. 08/28/25 2 weeks PT Goal 4: Pt and pt's family will verbalize HEP and discharge recommendations prior to discharge from acute [facility]. 08/28/25 2 weeks Written by Colleen Florence on 09/06/25 at 12:30 PM. * Progress Notes - Fabby Easley - 09/06/2025 11:33 AM EST OCCUPATIONAL THERAPY TREATMENT PATIENT DATA Patient Name Lyla Warren Session Date 09/06/2025 OT Discharge Recommendations Acute rehab Equipment Recommendations Defer to facility Discharge Transportation Recommendations Wheelchair transport van/shuttle MOBILITY GUIDELINES Mobility Protocol: General - Mobility Guidelines Extremity Precautions: Extremity Precautions Extremity: RUE Mobility Restrictions (RUE): Other Other: Weight bearing up to 10 lbs. Type of Brace (RUE): None Other mobility precautions: No other precautions required PRECAUTIONS Medical Precautions Yes Medical Precautions: Spinal Spinal Precautions : C-collar at all times Medical Precautions: SBP < 150 HOME LIVING/SET-UP Lives With Family, Adult Home Type Home Equipment Home Layout Bathroom Layout Additional Comments Limited information due to pt's aphasia, no family present to confirm prior level of function and home setup. PRIOR LEVEL OF FUNCTION Receives help from Level of Mobility Mobility [place] History of Falls ADL Performance PRESENTATION Oxygen None (Room air) Telemetry Yes Lines and Tubes Female External Urinary Catheter 08/28/25 0230 (Active) Peripheral IV 08/27/25 Posterior;Right Hand (Active) Pre-Session Supine, Head of bed elevated, Lines intact, Bed alarm PT/OT donned c-collar Post-Session Sitting in chair, Chair alarm, Lines intact, RN notified, Call light in reach, SCDs applied Bracing (if applicable) Orthoses: C-Collar SUBJECTIVE PARTICIPANTS IN CARE Patient/Caregiver Comments Pt. Agreeable to OT/PT treatment session. Pt. Stated this is the hardestI have worked! Visitors Present No Mine Motor Operator (if applicable) OBJECTIVE PAIN No complaints of pain. DELIRIUM SCREENING RASS: Alert and calm Confusion Assessment Method-ICU (CAM-ICU/PCAM-ICU) Feature 1: Acute Onset or Fluctuating Course: Negative Feature 3: Altered Level of Consciousness: Negative Overall CAM-ICU/PCAM-ICU: Negative COGNITION SCREENING Overall Cognitive Status Impaired Arousal/Alertness Appropriate responses to stimuli Mood/Behavior Alert Orientation Oriented to person Command Following Single Step Commands: With increased time, With repetition, 100% of the time Multi-Step Commands: 50% of the time, With increased time, With repetition Method of Communication Expressive aphasia, Verbal Additional Observations Safety Judgment: Decreased awareness of need for assistance Awareness of Errors: Assistance required to identify errors made, Assistance required to correct errors made Deficit Awareness: Decreased awareness of deficits Attention Span: Appears intact INTERVENTIONS SELF-CARE Treatment Minutes (if applicable) 28 Comments Level of [place] Adaptive Equipment Utilized Interventions Feeding Grooming Bathing Upper Body Dressing Lower Body Dressing While sitting edge of bed with mod A for donning of bilateral socks with right dep A. Pt. required dep A to perform figure four position and increased tone noted and pain in back and right hip with position and when attempting to reach forward she was unable to grasp the sock to pull them up secondary to pain. Pt. was mod A to don left sock with verbal cues and assistance maintaining figure four position. Pt. with right inattention and required verbal cues to attend to the right to attempt to don left sock in rigth visual field. Pt. with no active movement noted in right UE or right LE duringfunctional task. Following donning of socks performed donning of pants and required max A. Pt. educated to don right side first into the clothing and to take out last to increase ease with dressing. Pt. was dep A to place right LE into the clothing and was mod A for sitting balance to raise left Sybil place quickly into the pants. Pt. with increased shortness of air while performing this task andrequired rest break after failing first attempt to don left LE into the pants. Pt. was mod a x 1 + 1 to stand and max A to pull pants over buttocks in standing. Toileting IAD[facility]s [facility] Re-Entry BALANCE Postural Appearance Posture: Weight shift right of midline, Weight shift posterior to midline INTERVENTIONS Level of [place] Balance Support Interventions Static Sit Contact guard Feet supported Dynamic Sit Maximum assistance (to Mod A) Feet supported Dynamic Sitting- Balance: Lateral weight shifts, Anterior/Posterior weight shifts, Reaching for objects, Reaching across midline Static Stand Moderate assistance Left upper extremity support, Right upper extremity support Dynamic Stand Maximum assistance Right upper extremity support, Left upper extremity support Lateral weight shifts, Anterior/Posterior weight shifts BED MOBILITY Level of [place] Physical/Non-physical Assist Adaptive Equipment Utilized Rolling/ Turning Minimum assist (75% patient effort) (to R and Dep to L) Set-up required, Verbal Cues, Additional assist utilized for safety, Nonverbal cues (demo/gestures) Bed rails Scooting/ Bridging Supine to Sit Dependent Set-up required, Verbal Cues, Additional assist utilized for safety, Nonverbal cues (demo/gestures) Bed rails Sit to Supine Comments TRANSFERS Sit to Stand Moderate assist (50% patient's effort) (x3 trials to/from various surfaces) Hand held assist Stand to sit Moderate assist (50% patient's effort) Set-up required, Supervision, Verbal Cues, Additional assist utilized for safety, Nonverbal cues (demo/gestures) Bed to Chair Moderate assist (50% patient's effort) Sidesteps Set-up required, Supervision, Verbal Cues, Additional assist utilized for safety, Nonverbal cues (demo/gestures) Hand held assist Toilet Transfer Shower Transfer Comments COGNITIVE SKILL DEVELOPMENT Treatment Minutes Cognitive Function 1st 15 min Time Entry: 15 Interventions While seated edge of chair at the [facility] pt. performed reaching with left UE and she was able to perform visual scanning for single target and able to perform 71.43% with 1:50 minutes and reaction time of 7.31 seconds. Pt. required a supine in sitting rest break while performing this task and then was able to complete the task sitting edge of chair. Pt. then performed another task of sequencing using left UE and performed with 68.18% accuracy. Pt. required min verbal cues to locate items on the right and required incresed reaction time on the right compared to the left. Pt. with 22 attempts with 7 misses. While performing pt. required active assist for left shoulder flexion secondary to weakness in left UE. right UE weightbearing in right UE whileperforming tasks to increase proprioception in right UE. ASSESSMENT Pt has increased independence with bed mobility, functional transfers and ADL's this treatment session. Pt. With increased command following and pt. Appears to have expressive aphasia greater than receptive this treatment session. Pt. continues with decreased strength and sensation in right UE and right LE impacting independence with functional mobility and ADL's. Pt. With decreased postural control impacting independence with sitting and standing balance impacting independence with functional tasks. Pt. Also noted to have right inattention while performing cognitive task. Pt. Was independentprior to admission and requires mod A ~max A with functional mobility and ADLs impacting return to home at this time. Pt is unable to access a bathroom, enter or exit the home, or manage medications safely, placing them at high risk for readmission. Pt requires assistance with all aspects of transfers, mobility, and self-care. Additionally, pt is at high risk for falls and is currently unable to care for self independently. Patient will benefit from continued skilled occupational therapy and acute rehab placement upon D/C for the following reasons: ?? The patient requires the active and ongoing therapeutic interventions of multiple therapy disciplines, one of which must be physical or occupational therapy. ?? The patient is able to participate in 3 hours of therapy 5 days per week. ?? The patient will be expected to actively participate in and benefit significantly from the intensive rehabilitation program, which will be of practical value to improve the patient's functional capacity or adaptation to impairments in a reasonable period. ?? The patient may require physician supervision by a rehabilitation physician three times weekly and 24-hour nursing. ?? The patient requires an intensive and coordinated interdisciplinary approach to providing rehabilitation. ?? The patient's medical and rehab needs cannot be met at a lower level of care, such as a subacuterehab facility, home health, or outpatient therapy. OT RECOMMENDATIONS Discharge Destination Acute rehab Discharge Equipment Defer to facility PLAN Continue working on ADLs and and command following next treatment session with items on the right to increase attention to the right. OT GOALS OT GOAL DETAILS Goal Established Date Time Frame Goal Status OT Goal 1: Pt will be CGA to stand pivot to BSC to complete toileting, bilateral hand held assist 08/28/25 2 weeks OT Goal 2: Pt will be Autumn for sitting balance at EOB to complete singular grooming task 08/28/25 2 weeks OT Goal 3: Pt will be AOx4 2/2 sessions 08/28/25 2 weeks OT Goal 4: Pt will perform multistep commands with 50% accuracy 2/2 sessions to complete ADL task 08/28/25 2 weeks Written by Fabby Easley on 09/06/25 at 12:49 PM. * Progress Notes - Tanika Cooney APRN - 09/06/2025 11:20 AM EST Neurology Stroke Progress Note Subjective: No acute events overnight. The patient is seen and examined this morning while sitting up in bed. She is awake, alert, and actively participates in her exam. Her dietary intake continues to improve s/p removal of DHT. Ongoing hyponatremia workup with recommendation for 1 L NS, per uptodate algorithm, given urine sodium and urine osmolality. Repeat urine sodium and urine osmolality ordered upon completion of IVF. Lastly, patient reports new dysuria with UA showing leukocytes and bacteria; culture pending. Fosfomycin 3 g x 1 ordered. No concerns from nursing. Plan of care reviewed with nurse. Discussed plan of care with patient at bedside. No family at bedside. ROS: Patient denied chest pain, difficulty breathing, shortness of breath, difficulty urinating/stooling, or lightheadedness/vertigo. Objective: Vital Signs: Visit Vitals BP 120/73 Pulse 66 Temp 36.8 ??C (98.2 ??F) Resp 14 Ht 1.727 m (5' 8 ) Wt 69.5 kg (153 lb 3.5 oz) SpO2 94% BMI 23.30 kg/m?? OB Status Postmenopausal Smoking Status Former BSA 1.83 m?? Laboratory Testing (all labs personally reviewed and interpreted): Results from last 7 days Lab Units 09/05/2510309/03/2564109/02/25 0313 WBC 10*3/uL 13.51* 12.70* 14.14* HEMOGLOBIN g/dL 14.2 14.3 14.3 HEMATOCRIT % 40.8 41.1 40.8 PLATELETS 10*3/uL 393* 392* 341 Results from last 7 days Lab Units 09/06/25 0957 09/05/25 0837 09/05/25 01009/03/25 0642 09/01/25 0219 SODIUM mmol/L 133* 133* 132* 135* 136 POTASSIUM mmol/L -- -- 3.7 4.3 3.9 CHLORIDE mmol/L -- -- 96* 99 101 CO2 mmol/L -- -- 25 24 23 BUN mg/dL -- -- 25* 27* 34* CREATININE mg/dL -- -- 0.59* 0.61 0.62 CALCIUM mg/dL -- -- 9.2 9.3 9.6 BILIRUBIN TOTAL mg/dL -- -- -- -- 0.8 ALKALINE PHOSPHATASE U/L -- -- -- -- 108 ALT U/L -- -- -- -- 20 AST U/L -- -- -- -- 24 GLUCOSE mg/dL -- -- 174* 174* 167* Results from last 7 days Lab Units 09/05/25 0104 09/01/25 0219 08/31/25 0130 MAGNESIUM mg/dL 2.1 2.0 1.9 Medications: Current Scheduled Medications[1] PRN Current PRN Medications[2] Physical Exam: Constitutional: Patient in no acute distress. Patient appears stated age. C- collar in place Ears, Nose, Mouth, Throat: Mucous membranes appear moist. No appreciable hearing impairment. Nares patent. Eyes: PERRLA @ 3mm, Anicteric sclera. No appreciable conjunctival injection. Cardiovascular: Radial pulse patent. No appreciable murmurs, gallops, or rubs. No appreciably irregular rhythm. No appreciable edema. Respiratory: Clear to auscultation throughout on room air. Symmetric chest expansion. Non-labored breathing. Gastrointestinal: Soft, nontender, nondistended. Normoactive bowel sounds x 4. Genitourinary: No appreciable bladder distention. Musculoskeletal: No appreciable joint swelling. No appreciable joint deformities. No appreciable lower extremity warmth or erythema in either leg. Psychiatric: Appropriate mood and affect. Patient is cooperative. Neurological Examination: Mental Status: Alert and oriented to self. Follows two step commands. Language: Moderate expressive aphasia. Trace dysarthria. Concentration and attention full. Cranial Nerves: Aside from mild right central facial palsy, left quadrantanopsia; no appreciable deficit in cranial nerves II-XII. Motor: Normal tone and bulk throughout. Left upper extremity 4/5. Right upper extremity 0/5. Left lower extremity 4/5. Right lower extremity 1/5. Sensory: Sensation mildly decreased to right upper and lower extremity Coordination: No appreciable limb ataxia. Gait: Deferred due to weakness. Assessment/Plan: Lyla Warren is a 60 y.o. female who presented with right side weakness, right facial droop, and hemianopia. Past medical history includes ACDF (C4-C5) day prior at OSH, hypothyroidism, diabetes,and HLD. Comprehensive stroke workup completed with diagnosis of left frontal lobe IPH with associated SAH and left M3 branch occlusion secondary to concern for an initial ischemic stroke with subsequent hemorrhagic conversion. 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 - Thrombolytics not given w/ hemorrhage on imaging - Thrombectomy not indicated with no large vessel occlusion - Stroke mechanism: concern for ischemic stroke d/t ESUS and subsequent bleed - Stroke labs include A1C 6.2, TSH 1.44, LDL 78. - CT head: CT head posterior left frontal lobe IPH with SAH, - CTA head and neck with no large vessel occlusion, no significant stenosis however noted concerns for moderate narrowing of left LEEROY. - DSA on 08/29/25 with left MCA M3 occlusion with corresponding wedge defect and capillary perfusion defect. - MRI head w/o contrast with posterior left frontal lobe IPH w/ adjacent SAH and IVH. - Transthoracic ECHO showed an EF of 63%, normal LA, and no shunt. - PT/OT recommend Acute rehab - [employer] recommend soft/bite sized consistency with thin liquids - PHQ/MoCA: pending prior to discharge - Blood pressure goals: normotension - Secondary stroke risk reduction includes high intensity statin and plan for antiplatelet therapy 3 weeks post hemorrhage. - Recommend to stop estradiol for hot flashes. - 09/01, stat CT head for increased sedation, delayed responses, and not following commands. Exam returned to baseline upon return to floor. Follow up needs: - PCP as soon as able for continued comorbidity care - [facility] in 3 months for continued stroke care - EP Cardiology in 6-8 weeks to evaluate residential monitor results and assess for need for ILR due toconcern for occult Afib as ESUS etiology of stroke #Dysphagia due to stroke POA #Feeding difficulty due to stroke POA - 08/30, MBS with recommendations for IDDSI Level 6- Soft & Bite Sized with IDDSI Level 0-Thin Liquids by single spoon or cup sips only. NO STRAWS. NO CONSECUTIVE SIPS. - 09/03, continues to have poor food intake however, patient continues to report dislike for provided diet an wants to wait for her family to bring her food. - 09/05, improved PO intake, DHT removed. Food preferences and supplements updated per patient and family report - 09/06, PO intake continues to improve #Hypertension POA - Goal for normotension - 08/31, Continue carvedilol 12.5mg BID and will consider starting another agent for SBP above goal. - 09/01, lisinopril 5 mg daily added for ongoing hypertension - 09/03, 1 outlier of hypertension over the last 24 hours, trend without adjustment to antihypertensive regimen at this time #Hx of spinal fusion. - Patient had C4-C5 spinal fusion anterior approach at [facility] on 08/26/[address] Bedoya (Orthopedics department) - Currently has cervical collar in place. - Consulted Orthopedics who recommended to reach out to Dr. Bedoya about post op recs and keep cervical collar in place until then. - Per orthopedics at [facility], C-collar should be kept in place, can be removed when eating, drinking and showering. Daughter says that was the same instruction she was given by Dr. Bedoya who performed the procedure. - Has follow up appointmet with Dr. Bedoya on 09/09/25. - 08/31, Started low dose PRN gabapentin to assist with pain. - 09/01, encouraged use of gabapentin should patient report pain #Leukocytosis #UTI - Has been afebrile and HDS - 08/31, Mildly uptrending today. Will consider a UA. - 09/01, UA unremarkable without s/s of UTI; afebrile, HDS - 09/02, WBC up to 14k; remains afebrile and HDS - 09/03, WBC down to 12k; remains afebrile and HDS. Procalcitonin continues to be unremarkable - 09/05, persistent leukocytosis without overt s/s of infection. Remains afebrile and HDS. - 09/06, reports new dysuria which began last night. Afebrile and HDS. UA showing leukocytes and bacteria; treated with PO fosfomycin #Hyperlipidemia POA - LDL 78 - Continue statin therapy #Diabetes POA - home regimen on metformin 500mg BID - A1C 6.2 - Continue glucose checks with SSI coverage #Depression/anxiety POA - Home cymbalta 60mg daily on hold - Started on effexor 75mg BID during this hospitalization #Thrombocytosis - 08/31, Mildly uptrending. - 09/01, improved #Uremia #Hyponatremia - 08/31, Mildly uptrending. - 09/03, continues to improve - 09/05, BUN continues to improve. Mildly hyponatremic with Na 134 (after corrected for hyperglycemia). - 09/06, Urine sodium 29, urine osmolality 509, and Na 133. Per UpToDate algorithm, 1L NS administered with repeat urine sodium and osmolality after infusion. #Slow transit constipation due to stroke POA - bowel regimen with goal for BM at least every 72 hrs - LBM 09/04 #QT prolongation POA - On admit, QTc 518 - 08/28, QTC 500 - Avoid QT prolonging agents when able #FEN - HLIV - Monitor and replace prn - Soft and bite size #DVT PPX - SCDs and pLov #Dispo - Acute, pending hyponatremia workup - Code status: Full Code Patient assessment and plan has been discussed with the attending physician. Tanika Cooney APRN [employer] Secure Chat Preferred Dictation software disclaimer: Parts of this note was generated using voice dictation software. Although proofread, there may be spelling errors, changes in dictated words, and words inserted which may have been misinterpreted by voice dictation software. Meaning of words may require interpretationin the appropriate context of the sentence and clinical situation. [1] carvedilol, 12.5 mg, Oral, BID enoxaparin, 40 mg, Subcutaneous, Daily fosfomycin, 3 g, Oral, Once iohexol, 300 mL, Other, Once in imaging levothyroxine, 100 mcg, Oral, q AM lisinopril, 5 mg, Oral, Daily mirtazapine, 30 mg, Oral, Nightly polyethylene glycol, 17 g, Oral, BID rosuvastatin, 40 mg, Oral, Nightly senna-docusate, 2 tablet, Oral, BID sodium chloride, 1,000 mL, Intravenous, Once Insert peripheral IV, , , Once AND Saline lock IV, , , Once AND sodium chloride, 10 mL, Intravenous, q12h AND sodium chloride, 10 mL, Intravenous, PRN venlafaxine, 75 mg, Oral, BID [2] acetaminophen, 1,000 mg, Oral, q6h PRN OR acetaminophen, 1,000 mg, Nasogastric, q6h PRN OR acetaminophen, 650 mg, Rectal, q6h PRN bisacodyl, 10 mg, Rectal, Daily PRN gabapentin, 100 mg, Oral, BID PRN melatonin, 6 mg, Oral, Nightly PRN ondansetron, 4 mg, Intravenous, q6h PRN Insert peripheral IV, , , Once AND Saline lock IV, , , Once AND sodium chloride, 10 mL, Intravenous, q12h AND sodium chloride, 10 mL, Intravenous, PRN traZODone, 50 mg, Oral, Nightly PRN * Progress Notes - Yovani Hernandez RN - 09/06/2025 10:18 AM EST Case Management Adult Progress Note Lyla Warren 60 y.o. female CSN: [id number] Admission: 08/27/2025 8:46 PM Primary Problem: Acute intra-cranial hemorrhage (CMS/HCC) Anticipated Discharge Date: TBD Has Discharge Plans Changed? No Medicare Second Notice: No Medically Ready for Discharge: Additional Comments Discussed pt with provider in morning huddle and chart reviewed. Pt is not medically ready and is pending hyponatremia workup. Recs for acute. Pt has been referred to [facility] and will follow up with facility liaison when medically ready. Will continue to follow and coordinate dc plan as necessary. CM will make appropriate/additional referrals if needed and will continue to offer support to patient/family Yovani Hernandez RN * Care Plan - Carley Garay RN - 09/06/2025 12:11 AM EST Problem: Adult Inpatient Plan of Care Goal: Plan of Care Review Outcome: Ongoing, Progressing Flowsheets (Taken 09/06/20258) Progress: no change Plan of Care Reviewed With: patient Goal: Patient-Specific Goal (Individualized) Outcome: Ongoing, Progressing Goal: Absence of Hospital-Acquired Illness or Injury Outcome: Ongoing, Progressing Intervention: Identify and Manage Fall Risk Flowsheets (Taken 09/06/20258) Safety Promotion/Fall Prevention: activity supervised assistive device/personal items within reach clutter-free environment maintained fall prevention program maintained lighting adjusted nonskid shoes/slippers when out of bed room organization consistent safety round/check completed Intervention: Prevent Skin Injury Flowsheets (Taken 09/06/20258) Body Position: turned Skin Protection: transparent dressing maintained incontinence pads utilized Intervention: Prevent and Manage VTE (Venous Thromboembolism) Risk Flowsheets (Taken 09/05/20252199) VTE Prevention/Management: bilateral SCDs (sequential compression devices) on Intervention: Prevent Infection Flowsheets (Taken 09/06/20258) Infection Prevention: cohorting utilized environmental surveillance performed equipment surfaces disinfected hand hygiene promoted personal protective equipment utilized rest/sleep promoted single patient room provided Goal: Optimal Comfort and Wellbeing Outcome: Ongoing, Progressing Intervention: Monitor Pain and Promote Comfort Flowsheets (Taken 09/06/20258) Pain Management Interventions: medication (see MAR) Intervention: Provide Person-Centered Care Flowsheets (Taken 09/06/20258) Trust Relationship/Rapport: care explained choices provided emotional support provided empathic listening provided questions answered questions encouraged reassurance provided thoughts/feelings acknowledged Problem: Fall Injury Risk Goal: Absence of Fall and Fall-Related Injury Outcome: Ongoing, Progressing Intervention: Identify and Manage Contributors Flowsheets (Taken 09/06/20258) Medication Review/Management: medications reviewed Self-Care Promotion: independence encouraged BADL personal routines maintained BADL personal objects within reach Intervention: Promote Injury-Free Environment Flowsheets (Taken 09/06/20258) Safety Promotion/Fall Prevention: activity supervised assistive device/personal items within reach clutter-free environment maintained fall prevention program maintained lighting adjusted nonskid shoes/slippers when out of bed room organization consistent safety round/check completed Problem: Stroke, Intracerebral Hemorrhage Goal: Optimal Coping Outcome: Ongoing, Progressing Intervention: Support Psychosocial Response to Stroke Flowsheets (Taken 09/06/20258) Supportive Measures: active listening utilized decision-making supported positive reinforcement provided self-care encouraged self-responsibility promoted verbalization of feelings encouraged relaxation techniques promoted goal-setting facilitated Goal: Effective Bowel Elimination Outcome: Ongoing, Progressing Intervention: Promote Effective Bowel Elimination Flowsheets (Taken 09/06/20258) Bowel Elimination Management: toileting offered hygiene measures promoted Bowel Program: maintenance program followed Goal: Optimal Cerebral Tissue Perfusion Outcome: Ongoing, Progressing Goal: Optimal Cognitive Function Outcome: Ongoing, Progressing Goal: Effective Communication Skills Outcome: Ongoing, Progressing Goal: Optimal Functional Ability Outcome: Ongoing, Progressing Goal: Improved Oral Intake Outcome: Ongoing, Progressing Goal: Optimal Pain Control and Function Outcome: Ongoing, Progressing Goal: Effective Oxygenation and Ventilation Outcome: Ongoing, Progressing Goal: Improved Sensorimotor Function Outcome: Ongoing, Progressing Goal: Safe and Effective Swallow Outcome: Ongoing, Progressing Goal: Effective Urinary Elimination Outcome: Ongoing, Progressing Problem: Skin Injury Risk Increased Goal: Skin Health and Integrity Outcome: Ongoing, Progressing Intervention: Optimize Skin Protection Flowsheets (Taken 09/06/20258) Activity Management: activity adjusted per tolerance Pressure Reduction Techniques: frequent weight shift encouraged weight shift assistance provided heels elevated off bed Pressure Reduction Devices: specialty bed utilized pressure-redistributing mattress utilized Skin Protection: transparent dressing maintained incontinence pads utilized Head of Bed (HOB) Positioning: HOB elevated Intervention: Promote and Optimize Oral Intake Flowsheets (Taken 09/06/20258) Oral Nutrition Promotion: rest periods promoted Nutrition Interventions: food preferences provided meals from home/family encouraged Problem: Infection Goal: Absence of Infection Signs and Symptoms Outcome: Ongoing, Progressing Intervention: Prevent or Manage Infection Flowsheets (Taken 09/06/20258) Infection Management: aseptic technique maintained Fever Reduction/Comfort Measures: lightweight clothing lightweight bedding * Care Plan - Hortencia Quiroz - 09/05/2025 6:11 PM EST Problem: Adult Inpatient Plan of Care Goal: Plan of Care Review Outcome: Ongoing, Progressing Flowsheets (Taken 09/05/2025 1751) Progress: no change Plan of Care Reviewed With: patient Goal: Patient-Specific Goal (Individualized) Outcome: Ongoing, Progressing Flowsheets (Taken 09/05/2025 0800) Patient/Family-Specific Goals (Include Timeframe): patient will be turned Q2 during the shift. Individualized Care Needs: safety Anxieties, Fears or Concerns: patient asked about discharge date. Goal: Absence of Hospital-Acquired Illness or Injury Outcome: Ongoing, Progressing Intervention: Identify and Manage Fall Risk Flowsheets (Taken 09/05/20251750) Safety Promotion/Fall Prevention: clutter-free environment maintained fall prevention program maintained activity supervised assistive device/personal items within reach safety round/check completed toileting scheduled Intervention: Prevent Skin Injury Flowsheets (Taken 09/05/20251750) Body Position: turned Skin Protection: incontinence pads utilized skin sealant/moisture barrier applied Intervention: Prevent and Manage VTE (Venous Thromboembolism) Risk Flowsheets (Taken 09/05/20251750) VTE Prevention/Management: bilateral SCDs (sequential compression devices) on Intervention: Prevent Infection Flowsheets (Taken 09/05/20251750) Infection Prevention: equipment surfaces disinfected hand hygiene promoted personal protective equipment utilized single patient room provided Goal: Optimal Comfort and Wellbeing Outcome: Ongoing, Progressing Intervention: Monitor Pain and Promote Comfort Flowsheets (Taken 09/05/20251750) Pain Management Interventions: pillow support provided position adjusted rest care clustered Intervention: Provide Person-Centered Care Flowsheets (Taken 09/05/20251750) Trust Relationship/Rapport: care explained questions encouraged questions answered choices provided Problem: Fall Injury Risk Goal: Absence of Fall and Fall-Related Injury Outcome: Ongoing, Progressing Intervention: Identify and Manage Contributors Flowsheets (Taken 09/05/20251750) Medication Review/Management: medications reviewed Self-Care Promotion: BADL personal objects within reach meal set-up provided independence encouraged Intervention: Promote Injury-Free Environment Flowsheets (Taken 09/05/20251750) Safety Promotion/Fall Prevention: clutter-free environment maintained fall prevention program maintained activity supervised assistive device/personal items within reach safety round/check completed toileting scheduled Problem: Stroke, Intracerebral Hemorrhage Goal: Optimal Coping Outcome: Ongoing, Progressing Intervention: Support Psychosocial Response to Stroke Flowsheets (Taken 09/05/20251750) Supportive Measures: active listening utilized self-care encouraged Family/Support System Care: self-care encouraged Goal: Effective Bowel Elimination Outcome: Ongoing, Progressing Intervention: Promote Effective Bowel Elimination Flowsheets (Taken 09/05/20251750) Bowel Elimination Management: toileting offered hygiene measures promoted Bowel Program: maintenance program followed Goal: Optimal Cerebral Tissue Perfusion Outcome: Ongoing, Progressing Intervention: Protect and Optimize Cerebral Perfusion Flowsheets (Taken 09/05/20251750) Stabilization Measures: legs elevated Fluid/Electrolyte Management: fluids provided Sensory Stimulation Regulation: care clustered quiet environment promoted Cerebral Perfusion Promotion: blood pressure monitored Goal: Optimal Cognitive Function Outcome: Ongoing, Progressing Intervention: Optimize Cognitive Function Flowsheets (Taken 09/05/20251750) Sensory Stimulation Regulation: care clustered quiet environment promoted Reorientation Measures: clock in view glasses use encouraged Environment Familiarity/Consistency: familiar objects from home provided Goal: Effective Communication Skills Outcome: Ongoing, Progressing Intervention: Optimize Communication Skills Flowsheets (Taken 09/05/20251750) Communication Enhancement Strategies: verbal communication attempts encouraged Goal: Optimal Functional Ability Outcome: Ongoing, Progressing Intervention: Optimize Functional Ability Flowsheets (Taken 09/05/20251750) Activity Management: activity adjusted per tolerance activity encouraged Adaptive Equipment Use: use encouraged Self-Care Promotion: BADL personal objects within reach meal set-up provided independence encouraged Goal: Improved Oral Intake Outcome: Ongoing, Progressing Intervention: Promote and Optimize Fluid and Food Intake Flowsheets (Taken 09/05/20251750) Oral Nutrition Promotion: rest periods promoted Nutrition Interventions: meals from home/family encouraged supplemental drinks provided meal set-up provided Goal: Optimal Pain Control and Function Outcome: Ongoing, Progressing Intervention: Monitor and Manage Pain Flowsheets (Taken 09/05/20251750) Pain Management Interventions: pillow support provided position adjusted rest care clustered Goal: Effective Oxygenation and Ventilation Outcome: Ongoing, Progressing Intervention: Optimize Oxygenation and Ventilation Flowsheets (Taken 09/05/20251750) Head of Bed (HOB) Positioning: HOB elevated Goal: Improved Sensorimotor Function Outcome: Ongoing, Progressing Intervention: Optimize Range of Motion, Motor Control and Function Flowsheets (Taken 09/05/20251750) Range of Motion: active ROM (range of motion) encouraged Positioning: Shoulder: protection of affected arm encouraged Positioning/Transfer Devices: pillows Intervention: Optimize Sensory and Perceptual Ability Flowsheets (Taken 09/05/20251750) Pressure Reduction Techniques: frequent weight shift encouraged heels elevated off bed Goal: Safe and Effective Swallow Outcome: Ongoing, Progressing Intervention: Optimize Eating and Swallowing Flowsheets (Taken 09/05/20251750) Aspiration Precautions: awake/alert before oral intake upright posture maintained food consistency adjusted Swallowing Interventions: Dysphagia: foods moistened food placed on left side upright position maintained 45 mins after intake Feeding/Eating Techniques: feeding assistance provided Goal: Effective Urinary Elimination Outcome: Ongoing, Progressing Intervention: Promote Effective Bladder Elimination Flowsheets (Taken 09/05/20251750) Urinary Elimination Promotion: absorbent pad/diaper use encouraged Note: Patient using purewick Problem: Skin Injury Risk Increased Goal: Skin Health and Integrity Outcome: Ongoing, Progressing Intervention: Optimize Skin Protection Flowsheets (Taken 09/05/20251750) Activity Management: activity adjusted per tolerance activity encouraged Pressure Reduction Techniques: frequent weight shift encouraged heels elevated off bed Skin Protection: incontinence pads utilized skin sealant/moisture barrier applied Head of Bed (HOB) Positioning: HOB elevated Intervention: Promote and Optimize Oral Intake Flowsheets (Taken 09/05/20251750) Oral Nutrition Promotion: rest periods promoted Nutrition Interventions: meals from home/family encouraged supplemental drinks provided meal set-up provided Problem: Infection Goal: Absence of Infection Signs and Symptoms Outcome: Ongoing, Progressing Intervention: Prevent or Manage Infection Flowsheets (Taken 09/05/20251750) Infection Management: aseptic technique maintained Fever Reduction/Comfort Measures: fluid intake increased Cosigned by Natty Rodriguez RN at 09/25/2025 9:40 AM EST Associated attestation - Natty Rodriguez RN - 09/25/2025 9:40 AM EST Co-signed. * Progress Notes - Tanika Cooney APRN - 09/05/2025 10:55 AM EST Neurology Stroke Progress Note Subjective: No acute events overnight. The patient is seen and examined while sitting up in bed. She is awake, alert, and actively participates in her exam. Continues to have a persistent leukocytosis however, no overt signs or symptoms of infection. Additionally, remains afebrile and HDS. While uremia is improving, sodium continues to downtrend and is currently 134 when corrected for hyperglycemia. Patient remains asymptomatic with urine sodium and osmolality pending. Improved intake with over last 24 hours therefore, DHT removed. Additionally, per patient report prefers boost supplement drinks, yogurt,jello, etc therefore, food preferences updated to reflect patient report. No concerns from nursing.Plan of care reviewed with nurse. Discussed plan of care with patient and family at bedside. ROS: Patient denied chest pain, difficulty breathing, shortness of breath, difficulty urinating/stooling, or lightheadedness/vertigo. Objective: Vital Signs: Visit Vitals BP (!) 135/93 Pulse 71 Temp 36.7 ??C (98 ??F) (Oral) Resp 21 Ht 1.727 m (5' 8 ) Wt 75 kg (165 lb 5.5 oz) SpO2 97% BMI 25.14 kg/m?? OB Status Postmenopausal Smoking Status Former BSA 1.9 m?? Laboratory Testing (all labs personally reviewed and interpreted): Results from last 7 days Lab Units 09/05/2510309/03/2564109/02/25312 WBC 10*3/uL 13.51* 12.70* 14.14* HEMOGLOBIN g/dL 14.2 14.3 14.3 HEMATOCRIT % 40.8 41.1 40.8 PLATELETS 10*3/uL 393* 392* 341 Results from last 7 days Lab Units 09/05/25 0837 09/05/2510309/03/2564109/01/25218 SODIUM mmol/L 133* 132* 135* 136 POTASSIUM mmol/L -- 3.7 4.3 3.9 CHLORIDE mmol/L -- 96* 99 101 CO2 mmol/L -- 25 24 23 BUN mg/dL -- 25* 27* 34* CREATININE mg/dL -- 0.59* 0.61 0.62 CALCIUM mg/dL -- 9.2 9.3 9.6 BILIRUBIN TOTAL mg/dL -- -- -- 0.8 ALKALINE PHOSPHATASE U/L -- -- -- 108 ALT U/L -- -- -- 20 AST U/L -- -- -- 24 GLUCOSE mg/dL -- 174* 174* 167* Results from last 7 days Lab Units 09/05/2510309/01/259 08/31/25 0130 MAGNESIUM mg/dL 2.1 2.0 1.9 Medications: Current Scheduled Medications[1] PRN Current PRN Medications[2] Physical Exam: Constitutional: Patient in no acute distress. Patient appears stated age. C- collar in place Ears, Nose, Mouth, Throat: Mucous membranes appear moist. No appreciable hearing impairment. Nares patent. Dobhoff tube in place. Eyes: PERRLA @ 3mm, Anicteric sclera. No appreciable conjunctival injection. Cardiovascular: Radial pulse patent. No appreciable murmurs, gallops, or rubs. No appreciably irregular rhythm. No appreciable edema. Respiratory: Clear to auscultation throughout on room air. Symmetric chest expansion. Non-labored breathing. Gastrointestinal: Soft, nontender, nondistended. Normoactive bowel sounds x 4. Genitourinary: No appreciable bladder distention. Musculoskeletal: No appreciable joint swelling. No appreciable joint deformities. No appreciable lower extremity warmth or erythema in either leg. Psychiatric: Appropriate mood and affect. Patient is cooperative. Neurological Examination: Mental Status: Alert and oriented to self. Follows two step commands. Language: Moderate expressive aphasia. Trace dysarthria. Concentration and attention full. Cranial Nerves: Aside from mild right central facial palsy, left quadrantanopsia; no appreciable deficit in cranial nerves II-XII. Motor: Normal tone and bulk throughout. Left upper extremity 4/5. Right upper extremity 0/5. Left lower extremity 4/5. Right lower extremity 1/5. Sensory: Sensation mildly decreased to right upper and lower extremity Coordination: No appreciable limb ataxia. Gait: Deferred due to weakness. Assessment/Plan: Lyla Warren is a 60 y.o. female who presented with right side weakness, right facial droop, and hemianopia. Past medical history includes ACDF (C4-C5) day prior at OSH, hypothyroidism, diabetes,and HLD. Comprehensive stroke workup completed with diagnosis of left frontal lobe IPH with associated SAH and left M3 branch occlusion secondary to concern for an initial ischemic stroke with subsequent hemorrhagic conversion. 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 - Thrombolytics not given w/ hemorrhage on imaging - Thrombectomy not indicated with no large vessel occlusion - Stroke mechanism: concern for ischemic stroke d/t ESUS and subsequent bleed - Stroke labs include A1C 6.2, TSH 1.44, LDL 78. - CT head: CT head posterior left frontal lobe IPH with SAH, - CTA head and neck with no large vessel occlusion, no significant stenosis however noted concerns for moderate narrowing of left LEEROY. - DSA on 08/29/25 with left MCA M3 occlusion with corresponding wedge defect and capillary perfusion defect. - MRI head w/o contrast with posterior left frontal lobe IPH w/ adjacent SAH and IVH. - Transthoracic ECHO showed an EF of 63%, normal LA, and no shunt. - PT/OT recommend Acute rehab - PRINCIPAL GIFTS OFFICER recommend soft/bite sized consistency with thin liquids - PHQ/MoCA: pending prior to discharge - Blood pressure goals: normotension - Secondary stroke risk reduction includes high intensity statin and plan for antiplatelet therapy 3 weeks post hemorrhage. - Recommend to stop estradiol for hot flashes. - 09/01, stat CT head for increased sedation, delayed responses, and not following commands. Exam returned to baseline upon return to floor. Follow up needs: - PCP as soon as able for continued comorbidity care - [facility] in 3 months for continued stroke care - [facility] in 6-8 weeks to evaluate residential monitor results and assess for need for ILR due toconcern for occult Afib as ESUS etiology of stroke #Dysphagia due to stroke POA #Feeding difficulty due to stroke POA - 08/30, MBS with recommendations for IDDSI Level 6- Soft & Bite Sized with IDDSI Level 0-Thin Liquids by single spoon or cup sips only. NO STRAWS. NO CONSECUTIVE SIPS. - 09/03, continues to have poor food intake however, patient continues to report dislike for provided diet an wants to wait for her family to bring her food. - 09/05, improved PO intake, DHT removed. Food preferences and supplements updated per patient and family report #Hypertension POA - Goal for normotension - 08/31, Continue carvedilol 12.5mg BID and will consider starting another agent for SBP above goal. - 09/01, lisinopril 5 mg daily added for ongoing hypertension - 09/03, 1 outlier of hypertension over the last 24 hours, trend without adjustment to antihypertensive regimen at this time #Hx of spinal fusion. - Patient had C4-C5 spinal fusion anterior approach at [facility] on 08/26/[address] Bedoya (Orthopedics department) - Currently has cervical collar in place. - Consulted [facility] who recommended to reach out to Dr. Bedoya about post op recs and keep cervical collar in place until then. - Per orthopedics at [facility], C-collar should be kept in place, can be removed when eating, drinking and showering. Daughter says that was the same instruction she was given by Dr. Bedoya who performed the procedure. - Has follow up appointmet with Dr. Bedoya on 09/09/25. - 08/31, Started low dose PRN gabapentin to assist with pain. - 09/01, encouraged use of gabapentin should patient report pain #Leukocytosis - Has been afebrile and HDS - 08/31, Mildly uptrending today. Will consider a UA. - 09/01, UA unremarkable without s/s of UTI; afebrile, HDS - 09/02, WBC up to 14k; remains afebrile and HDS - 09/03, WBC down to 12k; remains afebrile and HDS. Procalcitonin continues to be unremarkable - 09/05, persistent leukocytosis without overt s/s of infection. Remains afebrile and HDS. #Hyperlipidemia POA - LDL 78 - Continue statin therapy #Diabetes POA - home regimen on metformin 500mg BID - A1C 6.2 - Continue glucose checks with SSI coverage #Depression/anxiety POA - Home cymbalta 60mg daily on hold - Started on effexor 75mg BID during this hospitalization #Thrombocytosis - 08/31, Mildly uptrending. - 09/01, improved #Uremia #Hyponatremia - 08/31, Mildly uptrending. - 09/03, continues to improve - 09/05, BUN continues to improve. Mildly hyponatremic with Na 134 (after corrected for hyperglycemia). Urine sodium and osmolality pending #Slow transit constipation due to stroke POA - bowel regimen with goal for BM at least every 72 hrs - LBM 09/04 #QT prolongation POA - On admit, QTc 518 - 08/28, QTC 500 - Avoid QT prolonging agents when able #FEN - HLIV - Monitor and replace prn - Soft and bite size #DVT PPX - SCDs and pLov #Dispo - Acute, medically ready - Code status: Full Code Patient assessment and plan has been discussed with the attending physician. Tanika Cooney APRN [facility] [email or web address] Dictation software disclaimer: Parts of this note was generated using voice dictation software. Although proofread, there may be spelling errors, changes in dictated words, and words inserted which may have been misinterpreted by voice dictation software. Meaning of words may require interpretationin the appropriate context of the sentence and clinical situation. [1] carvedilol, 12.5 mg, Oral, BID enoxaparin, 40 mg, Subcutaneous, Daily iohexol, 300 mL, Other, Once in imaging levothyroxine, 100 mcg, Oral, q AM lisinopril, 5 mg, Oral, Daily mirtazapine, 30 mg, Oral, Nightly polyethylene glycol, 17 g, Oral, BID rosuvastatin, 40 mg, Oral, Nightly senna-docusate, 2 tablet, Oral, BID Insert peripheral IV, , , Once AND Saline lock IV, , , Once AND sodium chloride, 10 mL, Intravenous, q12h AND sodium chloride, 10 mL, Intravenous, PRN venlafaxine, 75 mg, Oral, BID [2] acetaminophen, 1,000 mg, Oral, q6h PRN OR acetaminophen, 1,000 mg, Nasogastric, q6h PRN OR acetaminophen, 650 mg, Rectal, q6h PRN bisacodyl, 10 mg, Rectal, Daily PRN gabapentin, 100 mg, Oral, BID PRN melatonin, 6 mg, Oral, Nightly PRN ondansetron, 4 mg, Intravenous, q6h PRN Insert peripheral IV, , , Once AND Saline lock IV, , , Once AND sodium chloride, 10 mL, Intravenous, q12h AND sodium chloride, 10 mL, Intravenous, PRN traZODone, 50 mg, Oral, Nightly PRN * Care Plan - Carley Garay RN - 09/04/2025 11:18 PM EDT Problem: Adult Inpatient Plan of Care Goal: Plan of Care Review Outcome: Ongoing, Progressing Flowsheets (Taken 09/04/20252315) Progress: improving Plan of Care Reviewed With: patient Goal: Patient-Specific Goal (Individualized) Outcome: Ongoing, Progressing Flowsheets (Taken 09/04/20252314) Patient/Family-Specific Goals (Include Timeframe): Pt will remian free from falls this shift. Individualized Care Needs: Saftey Anxieties, Fears or Concerns: None at this time Goal: Absence of Hospital-Acquired Illness or Injury Outcome: Ongoing, Progressing Intervention: Identify and Manage Fall Risk Flowsheets (Taken 09/04/20252315) Safety Promotion/Fall Prevention: assistive device/personal items within reach clutter-free environment maintained activity supervised fall prevention program maintained lighting adjusted nonskid shoes/slippers when out of bed room organization consistent safety round/check completed Intervention: Prevent Skin Injury Flowsheets (Taken 09/04/20252315) Body Position: turned Intervention: Prevent and Manage VTE (Venous Thromboembolism) Risk Flowsheets (Taken 09/04/20252315) VTE Prevention/Management: bilateral SCDs (sequential compression devices) on Intervention: Prevent Infection Flowsheets (Taken 09/04/20252315) Infection Prevention: cohorting utilized environmental surveillance performed equipment surfaces disinfected hand hygiene promoted rest/sleep promoted single patient room provided personal protective equipment utilized Goal: Optimal Comfort and Wellbeing Outcome: Ongoing, Progressing Intervention: Monitor Pain and Promote Comfort Flowsheets (Taken 09/04/20252315) Pain Management Interventions: pillow support provided position adjusted rest emotional support care clustered Intervention: Provide Person-Centered Care Flowsheets (Taken 09/04/20252315) Trust Relationship/Rapport: care explained choices provided emotional support provided empathic listening provided questions encouraged questions answered reassurance provided thoughts/feelings acknowledged Problem: Fall Injury Risk Goal: Absence of Fall and Fall-Related Injury Outcome: Ongoing, Progressing Intervention: Identify and Manage Contributors Flowsheets (Taken 09/04/20252315) Medication Review/Management: medications reviewed Self-Care Promotion: independence encouraged BADL personal routines maintained meal set-up provided Intervention: Promote Injury-Free Environment Flowsheets (Taken 09/04/20252315) Safety Promotion/Fall Prevention: assistive device/personal items within reach clutter-free environment maintained activity supervised fall prevention program maintained lighting adjusted nonskid shoes/slippers when out of bed room organization consistent safety round/check completed Problem: Stroke, Intracerebral Hemorrhage Goal: Optimal Coping Outcome: Ongoing, Progressing Intervention: Support Psychosocial Response to Stroke Flowsheets (Taken 09/04/20252315) Supportive Measures: active listening utilized goal-setting facilitated positive reinforcement provided self-care encouraged relaxation techniques promoted verbalization of feelings encouraged Goal: Effective Bowel Elimination Outcome: Ongoing, Progressing Intervention: Promote Effective Bowel Elimination Flowsheets (Taken 09/04/20252315) Bowel Elimination Management: hygiene measures promoted relaxation techniques promoted toileting offered Bowel Program: maintenance program followed Goal: Optimal Cerebral Tissue Perfusion Outcome: Ongoing, Progressing Intervention: Protect and Optimize Cerebral Perfusion Flowsheets (Taken 09/04/20252315) Fluid/Electrolyte Management: fluids provided Sensory Stimulation Regulation: quiet environment promoted care clustered lighting decreased Cerebral Perfusion Promotion: blood pressure monitored Goal: Optimal Cognitive Function Outcome: Ongoing, Progressing Goal: Effective Communication Skills Outcome: Ongoing, Progressing Goal: Optimal Functional Ability Outcome: Ongoing, Progressing Goal: Improved Oral Intake Outcome: Ongoing, Progressing Goal: Optimal Pain Control and Function Outcome: Ongoing, Progressing Goal: Effective Oxygenation and Ventilation Outcome: Ongoing, Progressing Goal: Improved Sensorimotor Function Outcome: Ongoing, Progressing Goal: Safe and Effective Swallow Outcome: Ongoing, Progressing Goal: Effective Urinary Elimination Outcome: Ongoing, Progressing Problem: Skin Injury Risk Increased Goal: Skin Health and Integrity Outcome: Ongoing, Progressing Intervention: Optimize Skin Protection Flowsheets (Taken 09/04/20252315) Activity Management: activity adjusted per tolerance Head of Bed (HOB) Positioning: HOB elevated Intervention: Promote and Optimize Oral Intake Flowsheets (Taken 09/04/20252315) Nutrition Interventions: food preferences provided Problem: Infection Goal: Absence of Infection Signs and Symptoms Outcome: Ongoing, Progressing Intervention: Prevent or Manage Infection Flowsheets (Taken 09/04/20252315) Infection Management: aseptic technique maintained Fever Reduction/Comfort Measures: lightweight clothing lightweight bedding * Progress Notes - Tanika Cooney APRN - 09/04/2025 11:39 AM EDT Neurology Stroke Progress Note Subjective: No acute events overnight. The patient is seen and examined this morning while sitting up in bed. She is awake, alert, and actively participates in her exam. She denies any new concerns this morning.Again discussed need for improved dietary intake to which patient states her family is bringing food later this evening. Have encouraged utilization of unit snacks and boost shakes as she states she likes these. No concerns from nursing. Plan of care reviewed with nurse. No family at bedside. ROS: Patient denied chest pain, difficulty breathing, shortness of breath, difficulty urinating/stooling, or lightheadedness/vertigo. Objective: Vital Signs: Visit Vitals BP (!) 152/86 (BP Location: Right arm, Patient Position: Lying) Pulse 62 Temp 36.6 ??C (97.9 ??F) (Oral) Resp 16 Ht 1.727 m (5' 8 ) Wt 75 kg (165 lb 5.5 oz) SpO2 94% BMI 25.14 kg/m?? OB Status Postmenopausal Smoking Status Former BSA 1.9 m?? Laboratory Testing (all labs personally reviewed and interpreted): Results from last 7 days Lab Units 09/03/25 0609/02/253 09/01/25218 WBC 10*3/uL 12.70* 14.14* 12.80* HEMOGLOBIN g/dL 14.3 14.3 14.4 HEMATOCRIT % 41.1 40.8 42.5 PLATELETS 10*3/uL 392* 341 368 Results from last 7 days Lab Units 09/03/25 0642 09/01/2521808/31/25 0130 SODIUM mmol/L 135* 136 137 POTASSIUM mmol/L 4.3 3.9 3.7 CHLORIDE mmol/L 99 101 102 CO2 mmol/L 24 23 23 BUN mg/dL 27* 34* 36* CREATININE mg/dL 0.61 0.62 0.60 CALCIUM mg/dL 9.3 9.6 9.4 BILIRUBIN TOTAL mg/dL -- 0.8 -- ALKALINE PHOSPHATASE U/L -- 108 -- ALT U/L -- 20 -- AST U/L -- 24 -- GLUCOSE mg/dL 174* 167* 205* Results from last 7 days Lab Units 09/01/2521808/31/2512908/30/25 0334 MAGNESIUM mg/dL 2.0 1.9 2.1 Medications: Current Scheduled Medications[1] PRN Current PRN Medications[2] Physical Exam: Constitutional: Patient in no acute distress. Patient appears stated age. C- collar in place Ears, Nose, Mouth, Throat: Mucous membranes appear moist. No appreciable hearing impairment. Nares patent. Dobhoff tube in place. Eyes: PERRLA @ 3mm, Anicteric sclera. No appreciable conjunctival injection. Cardiovascular: Radial pulse patent. No appreciable murmurs, gallops, or rubs. No appreciably irregular rhythm. No appreciable edema. Respiratory: Clear to auscultation throughout on room air. Symmetric chest expansion. Non-labored breathing. Gastrointestinal: Soft, nontender, nondistended. Normoactive bowel sounds x 4. Genitourinary: No appreciable bladder distention. Musculoskeletal: No appreciable joint swelling. No appreciable joint deformities. No appreciable lower extremity warmth or erythema in either leg. Psychiatric: Appropriate mood and affect. Patient is cooperative. Neurological Examination: Mental Status: Alert and oriented to self. Follows two step commands. Language: Moderate expressive aphasia. Trace dysarthria. Concentration and attention full. Cranial Nerves: Aside from mild right central facial palsy, left quadrantanopsia; no appreciable deficit in cranial nerves II-XII. Motor: Normal tone and bulk throughout. Left upper extremity 4/5. Right upper extremity 0/5. Left lower extremity 4/5. Right lower extremity 1/5. Sensory: Sensation mildly decreased to right upper and lower extremity Coordination: No appreciable limb ataxia. Gait: Deferred due to weakness. Assessment/Plan: Lyla Warren is a 60 y.o. female who presented with right side weakness, right facial droop, and hemianopia. Past medical history includes ACDF (C4-C5) day prior at OSH, hypothyroidism, diabetes,and HLD. Comprehensive stroke workup completed with diagnosis of left frontal lobe IPH with associated SAH and left M3 branch occlusion secondary to concern for an initial ischemic stroke with subsequent hemorrhagic conversion. 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 - Thrombolytics not given w/ hemorrhage on imaging - Thrombectomy not indicated with no large vessel occlusion - Stroke mechanism: concern for ischemic stroke d/t ESUS and subsequent bleed - Stroke labs include A1C 6.2, TSH 1.44, LDL 78. - CT head: CT head posterior left frontal lobe IPH with SAH, - CTA head and neck with no large vessel occlusion, no significant stenosis however noted concerns for moderate narrowing of left LEEROY. - DSA on 08/29/25 with left MCA M3 occlusion with corresponding wedge defect and capillary perfusion defect. - MRI head w/o contrast with posterior left frontal lobe IPH w/ adjacent SAH and IVH. - Transthoracic ECHO showed an EF of 63%, normal LA, and no shunt. - PT/OT recommend Acute rehab - PRINCIPAL GIFTS OFFICER recommend soft/bite sized consistency with thin liquids - PHQ/MoCA: pending prior to discharge - Blood pressure goals: normotension - Secondary stroke risk reduction includes high intensity statin and plan for antiplatelet therapy 3 weeks post hemorrhage. - Recommend to stop estradiol for hot flashes. - 09/01, stat CT head for increased sedation, delayed responses, and not following commands. Exam returned to baseline upon return to floor. Follow up needs: - PCP as soon as able for continued comorbidity care - [facility] in 3 months for continued stroke care - [facility] Card[facility] in 6-8 weeks to evaluate residential monitor results and assess for need for ILR due toconcern for occult Afib as ESUS etiology of stroke #Dysphagia due to stroke POA #Feeding difficulty due to stroke POA - 08/30, MBS with recommendations for IDDSI Level 6- Soft & Bite Sized with IDDSI Level 0-Thin Liquids by single spoon or cup sips only. NO STRAWS. NO CONSECUTIVE SIPS. - 09/03, continues to have poor food intake however, patient continues to report dislike for provided diet an wants to wait for her family to bring her food. - Will consider removal of DHT today based on PO intake #Hypertension POA - Goal for normotension - 08/31, Continue carvedilol 12.5mg BID and will consider starting another agent for SBP above goal. - 09/01, lisinopril 5 mg daily added for ongoing hypertension - 09/03, 1 outlier of hypertension over the last 24 hours, trend without adjustment to antihypertensive regimen at this time #Hx of spinal fusion. - Patient had C4-C5 spinal fusion anterior approach at [facility] on 08/26/[address] Bedoya (Orthopedics department) - Currently has cervical collar in place. - Consulted [facility] who recommended to reach out to Dr. Bedoya about post op recs and keep cervical collar in place until then. - Per orthopedics at [facility], C-collar should be kept in place, can be removed when eating, drinking and showering. Daughter says that was the same instruction she was given by Dr. Bedoya who performed the procedure. - Has follow up appointmet with Dr. Bedoya on 09/09/25. - 08/31, Started low dose PRN gabapentin to assist with pain. - 09/01, encouraged use of gabapentin should patient report pain #Leukocytosis - Has been afebrile and HDS - 08/31, Mildly uptrending today. Will consider a UA. - 09/01, UA unremarkable without s/s of UTI; afebrile, HDS - 09/02, WBC up to 14k; remains afebrile and HDS - 09/03, WBC down to 12k; remains afebrile and HDS - Procalcitonin continues to be unremarkable #Hyperlipidemia POA - LDL 78 - Continue statin therapy #Diabetes POA - home regimen on metformin 500mg BID - A1C 6.2 - Continue glucose checks with SSI coverage #Depression/anxiety POA - Home cymbalta 60mg daily on hold - Started on effexor 75mg BID during this hospitalization #Thrombocytosis - 08/31, Mildly uptrending. - 09/01, improved #Uremia - 08/31, Mildly uptrending. - 09/03, continues to improve - Continue to encourage PO hydration. #Slow transit constipation due to stroke POA - bowel regimen with goal for BM at least every 72 hrs - LBM 09/03, per patient #QT prolongation POA - On admit, QTc 518 - 08/28, QTC 500 - Avoid QT prolonging agents when able #FEN - HLIV - Monitor and replace prn - Soft and bite size #DVT PPX - SCDs and pLov #Dispo - Acute, medically ready - Code status: Full Code Patient assessment and plan has been discussed with the attending physician. Tanika Cooney APRN [employer] [facility] Preferred Dictation software disclaimer: Parts of this note was generated using voice dictation software. Although proofread, there may be spelling errors, changes in dictated words, and words inserted which may have been misinterpreted by voice dictation software. Meaning of words may require interpretationin the appropriate context of the sentence and clinical situation. [1] carvedilol, 12.5 mg, Oral, BID enoxaparin, 40 mg, Subcutaneous, Daily iohexol, 300 mL, Other, Once in imaging levothyroxine, 100 mcg, Oral, q AM lisinopril, 5 mg, Oral, Daily magnesium hydroxide, 30 mL, Oral, BID mirtazapine, 30 mg, Oral, Nightly polyethylene glycol, 17 g, Oral, BID rosuvastatin, 40 mg, Oral, Nightly senna-docusate, 2 tablet, Oral, BID Insert peripheral IV, , , Once AND Saline lock IV, , , Once AND sodium chloride, 10 mL, Intravenous, q12h AND sodium chloride, 10 mL, Intravenous, PRN venlafaxine, 75 mg, Oral, BID [2] acetaminophen, 1,000 mg, Oral, q6h PRN OR acetaminophen, 1,000 mg, Nasogastric, q6h PRN OR acetaminophen, 650 mg, Rectal, q6h PRN bisacodyl, 10 mg, Rectal, Daily PRN gabapentin, 100 mg, Oral, BID PRN melatonin, 6 mg, Oral, Nightly PRN ondansetron, 4 mg, Intravenous, q6h PRN Insert peripheral IV, , , Once AND Saline lock IV, , , Once AND sodium chloride, 10 mL, Intravenous, q12h AND sodium chloride, 10 mL, Intravenous, PRN traZODone, 50 mg, Oral, Nightly PRN * Care Plan - Ronna Ricketts RN - 09/04/2025 11:03 AM EDT Problem: Adult Inpatient Plan of Care Goal: Plan of Care Review Outcome: Ongoing, Progressing Flowsheets Taken 09/03/2025 1314 by Kriss Sierra RN Progress: improving Plan of Care Reviewed With: patient Taken 08/28/20252033 by Vale Milan Outcome Evaluation: pain Goal: Patient-Specific Goal (Individualized) Outcome: Ongoing, Progressing Flowsheets (Taken 09/04/2025 0800) Patient/Family-Specific Goals (Include Timeframe): pt will remain free of falls this shift. Individualized Care Needs: safety Anxieties, Fears or Concerns: denies Goal: Absence of Hospital-Acquired Illness or Injury Outcome: Ongoing, Progressing Intervention: Identify and Manage Fall Risk Flowsheets (Taken 09/04/2025 1000) Safety Promotion/Fall Prevention: activity supervised assistive device/personal items within reach clutter-free environment maintained fall prevention program maintained lighting adjusted mobility aid in reach nonskid shoes/slippers when out of bed room organization consistent safety round/check completed toileting scheduled Intervention: Prevent Skin Injury Flowsheets Taken 09/04/2025 1000 by Ronna Ricketts RN Body Position: turned Taken 09/01/20252258 by Kaylynn Nguyen Skin Protection: incontinence pads utilized Intervention: Prevent and Manage VTE (Venous Thromboembolism) Risk Flowsheets (Taken 09/04/2025 0800) VTE Prevention/Management: bilateral SCDs (sequential compression devices) on Intervention: Prevent Infection Flowsheets (Taken 09/01/20252258 by Kaylynn Nguyen) Infection Prevention: environmental surveillance performed hand hygiene promoted Goal: Optimal Comfort and Wellbeing Outcome: Ongoing, Progressing Intervention: Monitor Pain and Promote Comfort Flowsheets (Taken 09/04/2025 0551 by Doreen Powers, SEDA) Pain Management Interventions: medication (see MAR) Intervention: Provide Person-Centered Care Flowsheets (Taken 09/01/20252258 by Kaylynn Nguyen) Trust Relationship/Rapport: care explained choices provided Problem: Fall Injury Risk Goal: Absence of Fall and Fall-Related Injury Outcome: Ongoing, Progressing Intervention: Identify and Manage Contributors Flowsheets Taken 09/03/2025 1314 by Kriss Sierra RN Self-Care Promotion: BADL personal objects within reach meal set-up provided Taken 09/03/2025 0231 by Jesi Tony Medication Review/Management: medications reviewed Intervention: Promote Injury-Free Environment Flowsheets (Taken 09/04/2025 1000) Safety Promotion/Fall Prevention: activity supervised assistive device/personal items within reach clutter-free environment maintained fall prevention program maintained lighting adjusted mobility aid in reach nonskid shoes/slippers when out of bed room organization consistent safety round/check completed toileting scheduled Problem: Stroke, Intracerebral Hemorrhage Goal: Optimal Coping Outcome: Ongoing, Progressing Intervention: Support Psychosocial Response to Stroke Flowsheets Taken 09/03/2025230 by Jesi Tony Supportive Measures: active listening utilized decision-making supported problem-solving facilitated relaxation techniques promoted Taken 09/01/20252258 by Kaylynn Nguyen Family/Support System Care: caregiver stress acknowledged self-care encouraged Goal: Effective Bowel Elimination Outcome: Ongoing, Progressing Intervention: Promote Effective Bowel Elimination Flowsheets Taken 09/03/2025230 by Jesi Tony Bowel Elimination Management: hygiene measures promoted Taken 08/30/2025 1149 by Carlos Lovell RN Bowel Program: maintenance program followed Goal: Optimal Cerebral Tissue Perfusion Outcome: Ongoing, Progressing Intervention: Protect and Optimize Cerebral Perfusion Flowsheets Taken 09/03/2025230 by Jesi Tony Sensory Stimulation Regulation: auditory stimulation provided care clustered quiet environment promoted Cerebral Perfusion Promotion: blood pressure monitored normothermia promoted Taken 09/01/20252258 by Kaylynn Nguyen Stabilization Measures: legs elevated Taken 08/28/2025 0625 by Analy Salter Fluid/Electrolyte Management: electrolyte supplement adjusted Goal: Optimal Cognitive Function Outcome: Ongoing, Progressing Intervention: Optimize Cognitive Function Flowsheets (Taken 09/03/2025230 by Jesi Tony) Sensory Stimulation Regulation: auditory stimulation provided care clustered quiet environment promoted Reorientation Measures: calendar in view clock in view familiar social contact encouraged reorientation provided Environment Familiarity/Consistency: familiar objects from home provided Goal: Effective Communication Skills Outcome: Ongoing, Progressing Intervention: Optimize Communication Skills Flowsheets (Taken 09/01/20252258 by Kaylynn Nguyen) Communication Enhancement Strategies: call light answered in person Goal: Optimal Functional Ability Outcome: Ongoing, Progressing Intervention: Optimize Functional Ability Flowsheets Taken 09/04/2025 0700 by Ani Salter CNA Activity Management: activity adjusted per tolerance Taken 09/03/2025 1314 by Kriss Sierra RN Self-Care Promotion: BADL personal objects within reach meal set-up provided Taken 09/01/2025 1630 by Waldo Barone RN Adaptive Equipment Use: use encouraged Goal: Improved Oral Intake Outcome: Ongoing, Progressing Intervention: Promote and Optimize Fluid and Food Intake Flowsheets Taken 09/01/2025 2259 by Kaylynn Nguyen Nutrition Interventions: food preferences provided Taken 08/28/2025 0625 by Analy Salter Oral Nutrition Promotion: nutrition counseling provided Goal: Optimal Pain Control and Function Outcome: Ongoing, Progressing Intervention: Monitor and Manage Pain Flowsheets Taken 09/04/2025 0551 by Doreen Powers RN Pain Management Interventions: medication (see MAR) Taken 08/29/20252307 by Alyssa Shaw RN Complementary Therapy: (ice packs) other (see comments) Spiritual Activities Assistance: affirmation provided Sleep/Rest Enhancement: regular sleep/rest pattern promoted Goal: Effective Oxygenation and Ventilation Outcome: Ongoing, Progressing Intervention: Optimize Oxygenation and Ventilation Flowsheets Taken 09/04/2025 0800 by Ronna Ricketts RN Cough And Deep Breathing: done independently per patient Taken 09/04/2025 06 by Doreen Powers RN Head of Bed (HOB) Positioning: HOB lowered Taken 08/30/2025 1149 by Carlos Lovell RN Airway/Ventilation Management: pulmonary hygiene promoted Goal: Improved Sensorimotor Function Outcome: Ongoing, Progressing Intervention: Optimize Range of Motion, Motor Control and Function Flowsheets Taken 09/04/2025 06 by Doreen Powers RN Range of Motion: active ROM (range of motion) encouraged Taken 08/30/2025 1149 by Carlos Lovell RN Positioning/Transfer Devices: pillows Taken 08/29/20252307 by Alyssa Shaw RN Positioning: Shoulder: safety cues provided Spasticity Management: weight-bearing facilitated Intervention: Optimize Sensory and Perceptual Ability Flowsheets Taken 08/30/2025 1149 by Carlos Lovell RN Pressure Reduction Techniques: frequent weight shift encouraged Pressure Reduction Devices: positioning supports utilized Taken 08/29/20252307 by Alyssa Shaw, RN Sensation Impairment Protection: cues provided for safety Goal: Safe and Effective Swallow Outcome: Ongoing, Progressing Intervention: Optimize Eating and Swallowing Flowsheets Taken 08/30/2025 1149 by Carlos Lovell RN Aspiration Precautions: NPO pending swallow screening/evaluation oral hygiene care promoted respiratory status monitored Feeding/Eating Techniques: oral mucosa moistened Taken 08/29/2025 2308 by Alyssa Shaw RN Swallowing Interventions: Dysphagia: other (see comments) Swallowing Method: other (see comments) Goal: Effective Urinary Elimination Outcome: Ongoing, Progressing Intervention: Promote Effective Bladder Elimination Flowsheets (Taken 08/30/2025 1149 by Carlos Lovell, SEDA) Urinary Elimination Promotion: absorbent pad/diaper use encouraged frequent voiding encouraged positioned for ease of voiding voiding relaxation promoted Problem: Skin Injury Risk Increased Goal: Skin Health and Integrity Outcome: Ongoing, Progressing Intervention: Optimize Skin Protection Flowsheets Taken 09/04/2025 0700 by Ani Salter CNA Activity Management: activity adjusted per tolerance Taken 09/04/2025 0600 by Doreen Powers RN Head of Bed (HOB) Positioning: HOB lowered Taken 09/01/20252258 by Kaylynn Nguyen Skin Protection: incontinence pads utilized Taken 08/30/2025 1149 by Carlos Lovell RN Pressure Reduction Techniques: frequent weight shift encouraged Pressure Reduction Devices: positioning supports utilized Intervention: Promote and Optimize Oral Intake Flowsheets Taken 09/01/2025 225 by Kaylynn Nguyen Nutrition Interventions: food preferences provided Taken 08/28/2025 0625 by Analy Salter Oral Nutrition Promotion: nutrition counseling provided Problem: Infection Goal: Absence of Infection Signs and Symptoms Outcome: Ongoing, Progressing Intervention: Prevent or Manage Infection Flowsheets Taken 09/03/20251999 by Doreen Powers RN Isolation Precautions: precautions maintained Taken 09/03/2025 0231 by Jesi Tony Infection Management: aseptic technique maintained Fever Reduction/Comfort Measures: lightweight bedding lightweight clothing * Care Plan - Kriss Sierra RN - 09/03/2025 1:16 PM EDT Problem: Adult Inpatient Plan of Care Goal: Plan of Care Review Outcome: Ongoing, Progressing Flowsheets (Taken 09/03/2025 1314) Progress: improving Plan of Care Reviewed With: patient Goal: Patient-Specific Goal (Individualized) Outcome: Ongoing, Progressing Flowsheets (Taken 09/03/2025 0800) Patient/Family-Specific Goals (Include Timeframe): patient will remain free from falls/injury/harm Individualized Care Needs: safety Anxieties, Fears or Concerns: none Goal: Absence of Hospital-Acquired Illness or Injury Outcome: Ongoing, Progressing Intervention: Identify and Manage Fall Risk Flowsheets (Taken 09/03/2025 1314) Safety Promotion/Fall Prevention: activity supervised clutter-free environment maintained fall prevention program maintained lighting adjusted nonskid shoes/slippers when out of bed room organization consistent safety round/check completed toileting scheduled Intervention: Prevent Skin Injury Flowsheets Taken 09/03/2025 1200 by Kriss Sierra RN Body Position: turned Taken 09/01/20252258 by Kaylynn Nguyen Skin Protection: incontinence pads utilized Intervention: Prevent and Manage VTE (Venous Thromboembolism) Risk Flowsheets (Taken 09/03/2025 1200) VTE Prevention/Management: bilateral lower extremity SCDs (sequential compression devices) on Intervention: Prevent Infection Flowsheets (Taken 09/01/20252258 by Kaylynn Nguyen) Infection Prevention: environmental surveillance performed hand hygiene promoted Goal: Optimal Comfort and Wellbeing Outcome: Ongoing, Progressing Problem: Fall Injury Risk Goal: Absence of Fall and Fall-Related Injury Outcome: Ongoing, Progressing Intervention: Identify and Manage Contributors Flowsheets Taken 09/03/2025 1314 by Kriss Sierra RN Self-Care Promotion: BADL personal objects within reach meal set-up provided Taken 09/03/2025 0231 by Jesi Tony Medication Review/Management: medications reviewed Intervention: Promote Injury-Free Environment Flowsheets (Taken 09/03/2025 1314) Safety Promotion/Fall Prevention: activity supervised clutter-free environment maintained fall prevention program maintained lighting adjusted nonskid shoes/slippers when out of bed room organization consistent safety round/check completed toileting scheduled Problem: Stroke, Intracerebral Hemorrhage Goal: Optimal Coping Outcome: Ongoing, Progressing Goal: Effective Bowel Elimination Outcome: Ongoing, Progressing Goal: Optimal Cerebral Tissue Perfusion Outcome: Ongoing, Progressing Goal: Optimal Cognitive Function Outcome: Ongoing, Progressing Goal: Effective Communication Skills Outcome: Ongoing, Progressing Goal: Optimal Functional Ability Outcome: Ongoing, Progressing Goal: Improved Oral Intake Outcome: Ongoing, Progressing Goal: Optimal Pain Control and Function Outcome: Ongoing, Progressing Goal: Effective Oxygenation and Ventilation Outcome: Ongoing, Progressing Goal: Improved Sensorimotor Function Outcome: Ongoing, Progressing Goal: Safe and Effective Swallow Outcome: Ongoing, Progressing Goal: Effective Urinary Elimination Outcome: Ongoing, Progressing Problem: Skin Injury Risk Increased Goal: Skin Health and Integrity Outcome: Ongoing, Progressing Intervention: Optimize Skin Protection Flowsheets Taken 09/03/2025 0800 by Kriss Sierra RN Activity Management: activity adjusted per tolerance Taken 09/01/2025 2259 by Kaylynn Nguyen Skin Protection: incontinence pads utilized Problem: Infection Goal: Absence of Infection Signs and Symptoms Outcome: Ongoing, Progressing Intervention: Prevent or Manage Infection Flowsheets Taken 09/03/2025 0800 by Kriss Sierra RN Isolation Precautions: precautions maintained Taken 09/03/2025 0231 by Jesi Tony Infection Management: aseptic technique maintained Fever Reduction/Comfort Measures: lightweight bedding lightweight clothing * Progress Notes - Tanika Cooney APRN - 09/03/2025 11:51 AM EDT Neurology Stroke Progress Note Subjective: No acute events overnight. The patient is seen and examined this morning while sitting up in bed. She is awake and alert however, exam remains limited due to aphasia. Noted to have 1 outlier of hypertension over the last 24 hours therefore, will continue to trend without adjustments to antihypertensive regimen at this time. Have continued to encourage food intake so DHT can be removed. Patient continues to report strong dislike for current food provided. Per patient, would prefer family broughther food. She continues to have leukocytosis however, downtrending this morning. She remains afebrile and HDS. Additionally, procalcitonin remains normal today. No further concerns from nursing. Planof care reviewed with nurse. No family at bedside. ROS: A 14pt ROS was deferred due to aphasia Objective: Vital Signs: Visit Vitals BP 131/75 (BP Location: Right arm, Patient Position: Lying) Pulse 60 Temp 36.7 ??C (98 ??F) (Oral) Resp 16 Ht 1.727 m (5' 8 ) Wt 75 kg (165 lb 5.5 oz) SpO2 95% BMI 25.14 kg/m?? OB Status Postmenopausal Smoking Status Former BSA 1.9 m?? Laboratory Testing (all labs personally reviewed and interpreted): Results from last 7 days Lab Units 09/03/25 0609/02/253 09/01/25218 WBC 10*3/uL 12.70* 14.14* 12.80* HEMOGLOBIN g/dL 14.3 14.3 14.4 HEMATOCRIT % 41.1 40.8 42.5 PLATELETS 10*3/uL 392* 341 368 Results from last 7 days Lab Units 09/03/2564109/01/2521808/31/2512908/28/250 08/27/251 SODIUM mmol/L 135* 136 137 < > 135* POTASSIUM mmol/L 4.3 3.9 3.7 < > 4.6 CHLORIDE mmol/L 99 101 102 < > 102 CO2 mmol/L 24 23 23 < > 21* BUN mg/dL 27* 34* 36* < > 14 CREATININE mg/dL 0.61 0.62 0.60 < > 0.56* CALCIUM mg/dL 9.3 9.6 9.4 < > 8.5* BILIRUBIN TOTAL mg/dL -- 0.8 -- -- 0.7 ALKALINE PHOSPHATASE U/L -- 108 -- -- 97 ALT U/L -- 20 -- -- 24 AST U/L -- 24 -- -- 46* GLUCOSE mg/dL 174* 167* 205* < > 171* < > = values in this interval not displayed. Results from last 7 days Lab Units 08/27/25 211 APTT sec 28 INR 1.0 Results from last 7 days Lab Units 09/01/2521808/31/2512908/30/25 0334 MAGNESIUM mg/dL 2.0 1.9 2.1 Medications: Current Scheduled Medications[1] PRN Current PRN Medications[2] Physical Exam: Constitutional: Patient in no acute distress. Patient appears stated age. C- collar in place Ears, Nose, Mouth, Throat: Mucous membranes appear moist. No appreciable hearing impairment. Nares patent. Dobhoff tube in place. Eyes: PERRLA @ 3mm, Anicteric sclera. No appreciable conjunctival injection. Cardiovascular: Radial pulse patent. No appreciable murmurs, gallops, or rubs. No appreciably irregular rhythm. No appreciable edema. Respiratory: Clear to auscultation throughout on room air. Symmetric chest expansion. Non-labored breathing. Gastrointestinal: Soft, nontender, nondistended. Normoactive bowel sounds x 4. Genitourinary: No appreciable bladder distention. Musculoskeletal: No appreciable joint swelling. No appreciable joint deformities. No appreciable lower extremity warmth or erythema in either leg. Psychiatric: Appropriate mood and affect. Patient is cooperative. Neurological Examination: Mental Status: Alert and oriented to self. Follows two step commands. Language: Moderate expressive aphasia. Trace dysarthria. Concentration and attention full. Cranial Nerves: Aside from mild right central facial palsy, left quadrantanopsia; no appreciable deficit in cranial nerves II-XII. Motor: Normal tone and bulk throughout. Left upper extremity 4/5. Right upper extremity 0/5. Left lower extremity 4/5. Right lower extremity 1/5. Sensory: Sensation mildly decreased to right upper and lower extremity Coordination: No appreciable limb ataxia. Gait: Deferred due to weakness. Assessment/Plan: Lyla Warren is a 60 y.o. female who presented with right side weakness, right facial droop, and hemianopia. Past medical history includes ACDF (C4-C5) day prior at OSH, hypothyroidism, diabetes,and HLD. Comprehensive stroke workup completed with diagnosis of left frontal lobe IPH with associated SAH and left M3 branch occlusion secondary to concern for an initial ischemic stroke with subsequent hemorrhagic conversion. 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 - Thrombolytics not given w/ hemorrhage on imaging - Thrombectomy not indicated with no large vessel occlusion - Stroke mechanism: concern for ischemic stroke d/t ESUS and subsequent bleed - Stroke labs include A1C 6.2, TSH 1.44, LDL 78. - CT head: CT head posterior left frontal lobe IPH with SAH, - CTA head and neck with no large vessel occlusion, no significant stenosis however noted concerns for moderate narrowing of left LEEROY. - DSA on 08/29/25 with left MCA M3 occlusion with corresponding wedge defect and capillary perfusion defect. - MRI head w/o contrast with posterior left frontal lobe IPH w/ adjacent SAH and IVH. - Transthoracic ECHO showed an EF of 63%, normal LA, and no shunt. - PT/OT recommend Acute rehab - [employer] recommend soft/bite sized consistency with thin liquids - PHQ/MoCA: pending prior to discharge - Blood pressure goals: normotension - Secondary stroke risk reduction includes high intensity statin and plan for antiplatelet therapy 3 weeks post hemorrhage. - Recommend to stop estradiol for hot flashes. - 09/01, stat CT head for increased sedation, delayed responses, and not following commands. Exam returned to baseline upon return to floor. Follow up needs: - PCP as soon as able for continued comorbidity care - [facility] in 3 months for continued stroke care - [facility] Cardiology in 6-8 weeks to evaluate residential monitor results and assess for need for ILR due toconcern for occult Afib as ESUS etiology of stroke #Dysphagia due to stroke POA #Feeding difficulty due to stroke POA - 08/30, MBS with recommendations for IDDSI Level 6- Soft & Bite Sized with IDDSI Level 0-Thin Liquids by single spoon or cup sips only. NO STRAWS. NO CONSECUTIVE SIPS. - 09/03, continues to have poor food intake however, patient continues to report dislike for provided diet an wants to wait for her family to bring her food. - Will consider removal of DHT today based on PO intake #Hypertension POA - Goal for normotension - 08/31, Continue carvedilol 12.5mg BID and will consider starting another agent for SBP above goal. - 09/01, lisinopril 5 mg daily added for ongoing hypertension - 09/03, 1 outlier of hypertension over the last 24 hours, trend without adjustment to antihypertensive regimen at this time #Hx of spinal fusion. - Patient had C4-C5 spinal fusion anterior approach at [facility] on 08/26/[address] Bedoya (Orthopedics department) - Currently has cervical collar in place. - Consulted [facility] who recommended to reach out to Dr. Bedoya about post op recs and keep cervical collar in place until then. - Per orthopedics at [facility], C-collar should be kept in place, can be removed when eating, drinking and showering. Daughter says that was the same instruction she was given by Dr. Bedoya who performed the procedure. - Has follow up appointmet with Dr. Bedoya on 09/09/25. - 08/31, Started low dose PRN gabapentin to assist with pain. - 09/01, encouraged use of gabapentin should patient report pain #Leukocytosis - Has been afebrile and HDS - 08/31, Mildly uptrending today. Will consider a UA. - 09/01, UA unremarkable without s/s of UTI; afebrile, HDS - 09/02, WBC up to 14k; remains afebrile and HDS - 09/03, WBC down to 12k; remains afebrile and HDS - Procalcitonin continues to be unremarkable #Hyperlipidemia POA - LDL 78 - Continue statin therapy #Diabetes POA - home regimen on metformin 500mg BID - A1C 6.2 - Continue glucose checks with SSI coverage #Depression/anxiety POA - Home cymbalta 60mg daily on hold - Started on effexor 75mg BID during this hospitalization #Thrombocytosis - 08/31, Mildly uptrending. - 09/01, improved #Uremia - 08/31, Mildly uptrending. - 09/03, continues to improve - Continue to encourage PO hydration. #Slow transit constipation due to stroke POA - bowel regimen with goal for BM at least every 72 hrs - LBM 09/01 #QT prolongation POA - On admit, QTc 518 - 08/28, QTC 500 - Avoid QT prolonging agents when able #FEN - HLIV - Monitor and replace prn - Soft and bite size #DVT PPX - SCDs and pLov #Dispo - Acute, medically ready - Code status: Full Code Patient assessment and plan has been discussed with the attending physician. Tanika Cooney APRN [employer] [facility] Preferred Dictation software disclaimer: Parts of this note was generated using voice dictation software. Although proofread, there may be spelling errors, changes in dictated words, and words inserted which may have been misinterpreted by voice dictation software. Meaning of words may require interpretationin the appropriate context of the sentence and clinical situation. [1] carvedilol, 12.5 mg, Oral, BID enoxaparin, 40 mg, Subcutaneous, Daily iohexol, 300 mL, Other, Once in imaging levothyroxine, 100 mcg, Nasogastric, q AM lisinopril, 5 mg, Oral, Daily mirtazapine, 30 mg, Oral, Nightly polyethylene glycol, 17 g, Oral, BID rosuvastatin, 40 mg, Oral, Nightly senna-docusate, 2 tablet, Oral, BID Insert peripheral IV, , , Once AND Saline lock IV, , , Once AND sodium chloride, 10 mL, Intravenous, q12h AND sodium chloride, 10 mL, Intravenous, PRN venlafaxine, 75 mg, Oral, BID [2] acetaminophen, 1,000 mg, Oral, q6h PRN OR acetaminophen, 1,000 mg, Nasogastric, q6h PRN OR acetaminophen, 650 mg, Rectal, q6h PRN bisacodyl, 10 mg, Rectal, Daily PRN gabapentin, 100 mg, Oral, BID PRN melatonin, 6 mg, Oral, Nightly PRN ondansetron, 4 mg, Intravenous, q6h PRN Insert peripheral IV, , , Once AND Saline lock IV, , , Once AND sodium chloride, 10 mL, Intravenous, q12h AND sodium chloride, 10 mL, Intravenous, PRN traZODone, 50 mg, Oral, Nightly PRN * Care Plan - Jesi Tony - 09/03/2025 2:34 AM EDT Problem: Adult Inpatient Plan of Care Goal: Plan of Care Review Outcome: Ongoing, Progressing Goal: Patient-Specific Goal (Individualized) Outcome: Ongoing, Progressing Goal: Absence of Hospital-Acquired Illness or Injury Outcome: Ongoing, Progressing Intervention: Identify and Manage Fall Risk Flowsheets (Taken 09/03/2025 0231) Safety Promotion/Fall Prevention: activity supervised fall prevention program maintained Goal: Optimal Comfort and Wellbeing Outcome: Ongoing, Progressing Problem: Fall Injury Risk Goal: Absence of Fall and Fall-Related Injury Outcome: Ongoing, Progressing Intervention: Identify and Manage Contributors Flowsheets (Taken 09/03/2025230) Medication Review/Management: medications reviewed Problem: Stroke, Intracerebral Hemorrhage Goal: Optimal Coping Outcome: Ongoing, Progressing Intervention: Support Psychosocial Response to Stroke Flowsheets (Taken 09/03/2025230) Supportive Measures: active listening utilized decision-making supported problem-solving facilitated relaxation techniques promoted Goal: Effective Bowel Elimination Outcome: Ongoing, Progressing Intervention: Promote Effective Bowel Elimination Flowsheets (Taken 09/03/2025230) Bowel Elimination Management: hygiene measures promoted Goal: Optimal Cerebral Tissue Perfusion Outcome: Ongoing, Progressing Intervention: Protect and Optimize Cerebral Perfusion Flowsheets (Taken 09/03/2025230) Sensory Stimulation Regulation: auditory stimulation provided care clustered quiet environment promoted Cerebral Perfusion Promotion: blood pressure monitored normothermia promoted Goal: Optimal Cognitive Function Outcome: Ongoing, Progressing Intervention: Optimize Cognitive Function Flowsheets (Taken 09/03/2025230) Sensory Stimulation Regulation: auditory stimulation provided care clustered quiet environment promoted Reorientation Measures: calendar in view clock in view familiar social contact encouraged reorientation provided Environment Familiarity/Consistency: familiar objects from home provided Goal: Effective Communication Skills Outcome: Ongoing, Progressing Goal: Optimal Functional Ability Outcome: Ongoing, Progressing Goal: Improved Oral Intake Outcome: Ongoing, Progressing Goal: Optimal Pain Control and Function Outcome: Ongoing, Progressing Goal: Effective Oxygenation and Ventilation Outcome: Ongoing, Progressing Goal: Improved Sensorimotor Function Outcome: Ongoing, Progressing Goal: Safe and Effective Swallow Outcome: Ongoing, Progressing Goal: Effective Urinary Elimination Outcome: Ongoing, Progressing Problem: Skin Injury Risk Increased Goal: Skin Health and Integrity Outcome: Ongoing, Progressing Intervention: Optimize Skin Protection Flowsheets (Taken 09/03/2025230) Activity Management: activity adjusted per tolerance Head of Bed (HOB) Positioning: HOB at 30 degrees HOB at 30-45 degrees HOB at 20-30 degrees Problem: Infection Goal: Absence of Infection Signs and Symptoms Outcome: Ongoing, Progressing Intervention: Prevent or Manage Infection Flowsheets (Taken 09/03/2025230) Infection Management: aseptic technique maintained Fever Reduction/Comfort Measures: lightweight bedding lightweight clothing Isolation Precautions: (single patient room provided) other (see comments) * Care Plan - Bridgett Rodriguez - 09/02/2025 11:47 AM EDT Problem: Adult Inpatient Plan of Care Goal: Plan of Care Review Outcome: Ongoing, Progressing Goal: Patient-Specific Goal (Individualized) Outcome: Ongoing, Progressing Goal: Absence of Hospital-Acquired Illness or Injury Outcome: Ongoing, Progressing Intervention: Identify and Manage Fall Risk Flowsheets (Taken 09/02/2025 0800) Safety Promotion/Fall Prevention: activity supervised assistive device/personal items within reach clutter-free environment maintained fall prevention program maintained lighting adjusted mobility aid in reach Goal: Optimal Comfort and Wellbeing Outcome: Ongoing, Progressing Problem: Fall Injury Risk Goal: Absence of Fall and Fall-Related Injury Outcome: Ongoing, Progressing Intervention: Identify and Manage Contributors Flowsheets (Taken 09/02/2025 1146) Medication Review/Management: medications reviewed Problem: Stroke, Intracerebral Hemorrhage Goal: Optimal Coping Outcome: Ongoing, Progressing Intervention: Support Psychosocial Response to Stroke Flowsheets (Taken 09/02/2025 1146) Supportive Measures: active listening utilized Goal: Effective Bowel Elimination Outcome: Ongoing, Progressing Goal: Optimal Cerebral Tissue Perfusion Outcome: Ongoing, Progressing Goal: Optimal Cognitive Function Outcome: Ongoing, Progressing Goal: Effective Communication Skills Outcome: Ongoing, Progressing Goal: Optimal Functional Ability Outcome: Ongoing, Progressing Goal: Improved Oral Intake Outcome: Ongoing, Progressing Goal: Optimal Pain Control and Function Outcome: Ongoing, Progressing Goal: Effective Oxygenation and Ventilation Outcome: Ongoing, Progressing Goal: Improved Sensorimotor Function Outcome: Ongoing, Progressing Goal: Safe and Effective Swallow Outcome: Ongoing, Progressing Goal: Effective Urinary Elimination Outcome: Ongoing, Progressing Problem: Skin Injury Risk Increased Goal: Skin Health and Integrity Outcome: Ongoing, Progressing Intervention: Optimize Skin Protection Flowsheets (Taken 09/02/2025 1000) Activity Management: up in chair Problem: Infection Goal: Absence of Infection Signs and Symptoms Outcome: Ongoing, Progressing Intervention: Prevent or Manage Infection Flowsheets (Taken 09/02/2025 1146) Fever Reduction/Comfort Measures: lightweight clothing * Progress Notes - Alfredo Richardson APRN - 09/02/2025 9:46 AM EDT Neurology Stroke Progress Note Subjective: No acute events overnight. Ms. Warren is seen and examined while resting in bed this morning. She reports feeling well and has no new concerns. SBP has improved after recent titration of BP regimen. She remains with a leukocytosis but has also been afebrile and HDS; will continue to trend. Encouraged to increase PO intake so will be able to remove DHT. Encourage being out of bed to chair with nursing as able. Plan of care reviewed with family at bedside. Discussed the plan of care with nursing. ROS: A 14pt ROS was deferred due to aphasia Objective: Vital Signs: Visit Vitals BP 136/76 (BP Location: Right arm, Patient Position: Lying) Pulse 68 Temp 36.8 ??C (98.2 ??F) (Axillary) Resp 15 Ht 1.727 m (5' 8 ) Wt 75 kg (165 lb 5.5 oz) SpO2 98% BMI 25.14 kg/m?? OB Status Postmenopausal Smoking Status Former BSA 1.9 m?? Laboratory Testing (all labs personally reviewed and interpreted): Results from last 7 days Lab Units 09/02/25 0313 09/01/2521808/31/25 013 WBC 10*3/uL 14.14* 12.80* 13.01* HEMOGLOBIN g/dL 14.3 14.4 14.5 HEMATOCRIT % 40.8 42.5 42.4 PLATELETS 10*3/uL 341 368 375* Results from last 7 days Lab Units 09/01/25 02108/31/25 0130 08/30/25 0334 08/28/25 0320 08/27/25 2111 SODIUM mmol/L 136 137 139 < > 135* POTASSIUM mmol/L 3.9 3.7 4.1 < > 4.6 CHLORIDE mmol/L 101 102 106 < > 102 CO2 mmol/L 23 23 23 < > 21* BUN mg/dL 34* 36* 35* < > 14 CREATININE mg/dL 0.62 0.60 0.67 < > 0.56* CALCIUM mg/dL 9.6 9.4 9.8 < > 8.5* BILIRUBIN TOTAL mg/dL 0.8 -- -- -- 0.7 ALKALINE PHOSPHATASE U/L 108 -- -- -- 97 ALT U/L 20 -- -- -- 24 AST U/L 24 -- -- -- 46* GLUCOSE mg/dL 167* 205* 143* < > 171* < > = values in this interval not displayed. Results from last 7 days Lab Units 08/27/25 2111 APTT sec 28 INR 1.0 Results from last 7 days Lab Units 09/01/25 0219 08/31/25 0130 08/30/25 0334 MAGNESIUM mg/dL 2.0 1.9 2.1 Medications: Current Scheduled Medications[1] PRN Current PRN Medications[2] Physical Exam: Constitutional: Patient in no acute distress. Patient appears stated age. C- collar in place Ears, Nose, Mouth, Throat: Mucous membranes appear moist. No appreciable hearing impairment. Nares patent. Dobhoff tube in place. Eyes: PERRLA @ 3mm, Anicteric sclera. No appreciable conjunctival injection. Cardiovascular: Radial pulse patent. No appreciable murmurs, gallops, or rubs. No appreciably irregular rhythm. No appreciable edema. Respiratory: Clear to auscultation throughout on room air. Symmetric chest expansion. Non-labored breathing. Gastrointestinal: Soft, nontender, nondistended. Normoactive bowel sounds x 4. Genitourinary: No appreciable bladder distention. Musculoskeletal: No appreciable joint swelling. No appreciable joint deformities. No appreciable lower extremity warmth or erythema in either leg. Psychiatric: Appropriate mood and affect. Patient is cooperative. Neurological Examination: Mental Status: Alert and unable to assess orientation. Follows two step commands. Language: Moderate expressive aphasia. Trace dysarthria. Concentration and attention full. Cranial Nerves: Aside from mild right central facial palsy, left quadrantanopsia; no appreciable deficit in cranial nerves II-XII. Motor: Normal tone and bulk throughout. Left upper extremity 4/5. Right upper extremity 0/5. Left lower extremity 4/5. Right lower extremity 1/5. Sensory: Sensation mildly decreased to right upper and lower extremity Coordination: No appreciable limb ataxia. Gait: Deferred due to weakness. Assessment/Plan: Lyla Warren is a 60 y.o. female who presented with right side weakness, right facial droop, and hemianopia. Past medical history includes ACDF (C4-C5) day prior at OSH, hypothyroidism, diabetes,and HLD. Comprehensive stroke workup completed with diagnosis of left frontal lobe IPH with associated SAH and left M3 branch occlusion secondary to concern for an initial ischemic stroke with subsequent hemorrhagic conversion. 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 - Thrombolytics not given w/ hemorrhage on imaging - Thrombectomy not indicated with no large vessel occlusion - Stroke mechanism: concern for ischemic stroke d/t ESUS and subsequent bleed - Stroke labs include A1C 6.2, TSH 1.44, LDL 78. - CT head: CT head posterior left frontal lobe IPH with SAH, - CTA head and neck with no large vessel occlusion, no significant stenosis however noted concerns for moderate narrowing of left LEEROY. - DSA on 08/29/25 with left MCA M3 occlusion with corresponding wedge defect and capillary perfusion defect. - MRI head w/o contrast with posterior left frontal lobe IPH w/ adjacent SAH and IVH. - Transthoracic ECHO showed an EF of 63%, normal LA, and no shunt. - PT/OT recommend Acute rehab - [employer] recommend soft/bite sized consistency with thin liquids - PHQ/MoCA: pending prior to discharge - Blood pressure goals: normotension - Secondary stroke risk reduction includes high intensity statin and plan for antiplatelet therapy 3 weeks post hemorrhage. - Recommend to stop estradiol for hot flashes. - 09/01, stat CT head for increased sedation, delayed responses, and not following commands. Exam returned to baseline upon return to floor. Follow up needs: - PCP as soon as able for continued comorbidity care - [facility] in 3 months for continued stroke care - [facility] Cardiology in 6-8 weeks to evaluate residential monitor results and assess for need for ILR due toconcern for occult Afib as ESUS etiology of stroke #Dysphagia due to stroke POA #Feeding difficulty due to stroke POA - 08/30, MBS with recommendations for IDDSI Level 6- Soft & Bite Sized with IDDSI Level 0-Thin Liquids by single spoon or cup sips only. NO STRAWS. NO CONSECUTIVE SIPS. - 09/02, Will consider removal of DHT today based on PO intake #Hypertension POA - Goal for normotension - 08/31, Continue carvedilol 12.5mg BID and will consider starting another agent for SBP above goal. - 09/01, lisinopril 5 mg daily added for ongoing hypertension #Hx of spinal fusion. - Patient had C4-C5 spinal fusion anterior approach at [facility] on 08/26/[address] Bedoya (Orthopedics department) - Currently has cervical collar in place. - Consulted [facility] who recommended to reach out to Dr. Bedoya about post op recs and keep cervical collar in place until then. - Per orthopedics at [facility], C-collar should be kept in place, can be removed when eating, drinking and showering. Daughter says that was the same instruction she was given by Dr. Bedoya who performed the procedure. - Has follow up appointmet with Dr. Bedoya on 09/09/25. - 08/31, Started low dose PRN gabapentin to assist with pain. - 09/01, encouraged use of gabapentin should patient report pain #Leukocytosis - Has been afebrile and HDS - 08/31, Mildly uptrending today. Will consider a UA. - 09/01, UA unremarkable without s/s of UTI; afebrile, HDS - 09/02, WBC up to 14k; remains afebrile and HDS - Procalcitonin unremarkable #Hyperlipidemia POA - LDL 78 - Continue statin therapy #Diabetes POA - home regimen on metformin 500mg BID - A1C 6.2 - Continue glucose checks with SSI coverage #Depression/anxiety POA - Home cymbalta 60mg daily on hold - Started on effexor 75mg BID during this hospitalization #Thrombocytosis - 08/31, Mildly uptrending. - 09/01, improved #Uremia - 08/31, Mildly uptrending. - 09/01, mildly improved - Continue to encourage PO hydration. #Slow transit constipation due to stroke POA - bowel regimen with goal for BM at least every 72 hrs - LBM 09/01 #QT prolongation POA - On admit, QTc 518 - 08/28, QTC 500 - Avoid QT prolonging agents when able #FEN - HLIV - Monitor and replace prn - Soft and bite size #DVT PPX - SCDs and pLov #Dispo - Acute pending BP control/leukocytosis - Code status: Full Code Patient assessment and plan has been discussed with the attending physician. Alfredo Richardson APRN [facility] [employer] Preferred [1] carvedilol, 12.5 mg, Oral, BID enoxaparin, 40 mg, Subcutaneous, Daily iohexol, 300 mL, Other, Once in imaging levothyroxine, 100 mcg, Nasogastric, q AM lisinopril, 5 mg, Oral, Daily mirtazapine, 30 mg, Oral, Nightly polyethylene glycol, 17 g, Oral, BID rosuvastatin, 40 mg, Oral, Nightly scopolamine, 1 patch, Transdermal, q72h senna-docusate, 2 tablet, Oral, BID Insert peripheral IV, , , Once AND Saline lock IV, , , Once AND sodium chloride, 10 mL, Intravenous, q12h AND sodium chloride, 10 mL, Intravenous, PRN venlafaxine, 75 mg, Oral, BID [2] acetaminophen, 1,000 mg, Oral, q6h PRN OR acetaminophen, 1,000 mg, Nasogastric, q6h PRN OR acetaminophen, 650 mg, Rectal, q6h PRN bisacodyl, 10 mg, Rectal, Daily PRN gabapentin, 100 mg, Oral, BID PRN hydrALAZINE, 10 mg, Intravenous, q1h PRN OR hydrALAZINE, 20 mg, Intravenous, q1h PRN labetalol, 10 mg, Intravenous, q1h PRN OR labetalol, 20 mg, Intravenous, q1h PRN melatonin, 6 mg, Oral, Nightly PRN ondansetron, 4 mg, Intravenous, q6h PRN Insert peripheral IV, , , Once AND Saline lock IV, , , Once AND sodium chloride, 10 mL, Intravenous, q12h AND sodium chloride, 10 mL, Intravenous, PRN traZODone, 50 mg, Oral, Nightly PRN * Progress Notes - Yovani Hernandez RN - 09/02/2025 8:34 AM EDT Case Management Adult Progress Note Lyla Warren 60 y.o. female CSN: [id number] Admission: 08/27/2025 8:46 PM Primary Problem: Acute intra-cranial hemorrhage (CMS/HCC) Anticipated Discharge Date: TBD Has Discharge Plans Changed? No Medicare Second Notice: No Medically Ready for Discharge: Anticipated in 2-4 Days Additional Comments Discussed pt with provider in morning huddle and chart reviewed. Pt is not medically ready and is pending BP control and w/u for leukocytosis. Recs for acute. Pt has been referred to [facility] and will follow up with facility liaison when medically ready. Will continue to follow and coordinate dc plan as necessary. CM will make appropriate/additional referrals if needed and will continue to offer support to patient/family Yovani Hernandez RN * Care Plan - Kaylynn Nguyen - 09/01/2025 11:02 PM EDT Problem: Adult Inpatient Plan of Care Goal: Plan of Care Review Outcome: Ongoing, Progressing Flowsheets Taken 09/01/20252258 by Kaylynn Nguyen Progress: improving Taken 09/01/20250 by Waldo Barone RN Plan of Care Reviewed With: patient Goal: Absence of Hospital-Acquired Illness or Injury Outcome: Ongoing, Progressing Intervention: Identify and Manage Fall Risk Flowsheets (Taken 09/01/20251999) Safety Promotion/Fall Prevention: activity supervised safety round/check completed clutter-free environment maintained fall prevention program maintained lighting adjusted Intervention: Prevent Skin Injury Flowsheets (Taken 09/01/20252258) Body Position: turned Skin Protection: incontinence pads utilized Intervention: Prevent and Manage VTE (Venous Thromboembolism) Risk Flowsheets (Taken 09/01/20252258) VTE Prevention/Management: bilateral SCDs (sequential compression devices) on Intervention: Prevent Infection Flowsheets (Taken 09/01/20252258) Infection Prevention: environmental surveillance performed hand hygiene promoted Goal: Optimal Comfort and Wellbeing Outcome: Ongoing, Progressing Intervention: Monitor Pain and Promote Comfort Flowsheets (Taken 09/01/20252258) Pain Management Interventions: pain management plan reviewed with patient/caregiver Intervention: Provide Person-Centered Care Flowsheets (Taken 09/01/20252258) Trust Relationship/Rapport: care explained choices provided Problem: Fall Injury Risk Goal: Absence of Fall and Fall-Related Injury Outcome: Ongoing, Progressing Intervention: Identify and Manage Contributors Flowsheets (Taken 09/01/20252258) Medication Review/Management: medications reviewed Self-Care Promotion: independence encouraged BADL personal objects within reach BADL personal routines maintained Intervention: Promote Injury-Free Environment Flowsheets (Taken 09/01/20251999) Safety Promotion/Fall Prevention: activity supervised safety round/check completed clutter-free environment maintained fall prevention program maintained lighting adjusted Problem: Stroke, Intracerebral Hemorrhage Goal: Optimal Coping Outcome: Ongoing, Progressing Intervention: Support Psychosocial Response to Stroke Flowsheets (Taken 09/01/20252258) Supportive Measures: active listening utilized Family/Support System Care: caregiver stress acknowledged self-care encouraged Goal: Optimal Cerebral Tissue Perfusion Outcome: Ongoing, Progressing Intervention: Protect and Optimize Cerebral Perfusion Flowsheets (Taken 09/01/20252258) Stabilization Measures: legs elevated Sensory Stimulation Regulation: care clustered Cerebral Perfusion Promotion: blood pressure monitored Goal: Optimal Cognitive Function Outcome: Ongoing, Progressing Intervention: Optimize Cognitive Function Flowsheets (Taken 09/01/20252258) Sensory Stimulation Regulation: care clustered Reorientation Measures: clock in view Environment Familiarity/Consistency: daily routine followed Goal: Effective Communication Skills Outcome: Ongoing, Progressing Intervention: Optimize Communication Skills Flowsheets (Taken 09/01/20252258) Communication Enhancement Strategies: call light answered in person Goal: Optimal Functional Ability Outcome: Ongoing, Progressing Intervention: Optimize Functional Ability Flowsheets (Taken 09/01/20252258) Activity Management: activity adjusted per tolerance Self-Care Promotion: independence encouraged BADL personal objects within reach BADL personal routines maintained Goal: Improved Oral Intake Outcome: Ongoing, Progressing Intervention: Promote and Optimize Fluid and Food Intake Flowsheets (Taken 09/01/20252258) Nutrition Interventions: food preferences provided * Care Plan - Waldo Barone RN - 09/01/2025 4:32 PM EDT Problem: Adult Inpatient Plan of Care Goal: Plan of Care Review 09/01/2025 1630 by Waldo Barone RN Outcome: Ongoing, Progressing Flowsheets (Taken 09/01/2025 1630) Plan of Care Reviewed With: patient 09/01/2025 1628 by Waldo Barone RN Outcome: Ongoing, Progressing Flowsheets (Taken 09/01/2025 1628) Plan of Care Reviewed With: patient Goal: Patient-Specific Goal (Individualized) 09/01/2025 1630 by Waldo Barone RN Outcome: Ongoing, Progressing 09/01/2025 1628 by Waldo Barone RN Outcome: Ongoing, Progressing Flowsheets (Taken 09/01/2025 1628) Patient/Family-Specific Goals (Include Timeframe): pt to remain free of falls Individualized Care Needs: safety Anxieties, Fears or Concerns: none Goal: Absence of Hospital-Acquired Illness or Injury 09/01/2025 1630 by Waldo Barone RN Outcome: Ongoing, Progressing 09/01/2025 1628 by Waldo Barone RN Outcome: Ongoing, Progressing Intervention: Prevent Infection Flowsheets (Taken 09/01/2025 1628) Infection Prevention: environmental surveillance performed Goal: Optimal Comfort and Wellbeing 09/01/2025 1630 by Waldo Barone RN Outcome: Ongoing, Progressing 09/01/2025 1628 by Waldo Barone RN Outcome: Ongoing, Progressing * Care Plan - Waldo Barone RN - 09/01/2025 4:30 PM EDT Problem: Adult Inpatient Plan of Care Goal: Plan of Care Review Outcome: Ongoing, Progressing Flowsheets (Taken 09/01/2025 1628) Plan of Care Reviewed With: patient Goal: Patient-Specific Goal (Individualized) Outcome: Ongoing, Progressing Flowsheets (Taken 09/01/2025 1628) Patient/Family-Specific Goals (Include Timeframe): pt to remain free of falls Individualized Care Needs: safety Anxieties, Fears or Concerns: none Goal: Absence of Hospital-Acquired Illness or Injury Outcome: Ongoing, Progressing Intervention: Prevent Infection Flowsheets (Taken 09/01/2025 1628) Infection Prevention: environmental surveillance performed Goal: Optimal Comfort and Wellbeing Outcome: Ongoing, Progressing * Consults - Savanna Rodriguez - 09/01/2025 3:12 PM EDT Adult Nutrition Evaluation Note Lyla Warren 60 y.o. female CSN: [id number] Room/Bed 117/117A Nutrition evaluation type: follow-up Reason for evaluation: Hospital course: 60 y/o F presenting with Acute L posterior frontal ICH + small SAH (no shift, ICH score 0) after fall with right-sided numbness, s/p spinal fusion. Past medical/ surgical history: Past Medical History[1] Surgical History[2] Social history: Additional comments: 09/01: PO diet advanced on 08/30, DHT remains in place. Patient working with therapy at time of visit and out of room. Spoke with family at bedside. Reports appetite poor. Provided patient PO preferences, this RD added to mydining. Reports patient might consume boost. Vitals and Basic Assessment: BP: (!) 159/85 Temp: 36.6 ??C (97.9 ??F) Oxygen Therapy: None (Room air) O2 Delivery Method: Nasal cannula [place] Coma Scale Score: 14 Har[place] Scale Score: 15 [place] Pressure Risk Score: 37 Most Recent BM Date: 09/01/25 GI Symptoms: None Allergies: Allergies[3] Medications: Current Scheduled Medications[4] Meds were reviewed: Yes Labs: Lab Results Component Value Date GLUCOSE 167 (H) 09/01/2025 CALCIUM 9.6 09/01/2025 NA 136 09/01/2025 K 3.9 09/01/2025 CO2 23 09/01/2025 CL 101 09/01/2025 BUN 34 (H) 09/01/2025 CREATININE 0.62 09/01/2025 PHOS 2.9 08/31/2025 MG 2.0 09/01/2025 HGBA1C 6.2 (H) 08/30/2025 Anthropometrics: Height: 172.7 cm (5' 8 ) Weight: 75 kg (165 lb 5.5 oz) BMI (Calculated): 25.15 Weight Evaluation: Normal (BMI 18.5-24.9) [place] Body Weight (kg): 63.6 Percent [place] Body Weight: 115 Wt Readings from Last 10 Encounters: 08/30/25 75 kg (165 lb 5.5 oz) 08/28/25 75 kg (165 lb 5.5 oz) Estimated Needs: Kcal/ K-30 Kcal Provided: 0193-9003 Kcal Needs Based On: Current weight Gm Protein/ Kg : 1+ Protein Provided: 73+ Protein Needs Based On: Current weight ML/ Kg: Per team or 1 mL/kcal Metabolic Cart Study Results: Current Nutrition Intake: Diet Supplements: None Diet Order: Adult Diet Diet Texture: Soft and Bite Sized 6 Diet Experience and Nutrition History: Diet Education Provided: Will monitor Pertinent home medications: [place] needs: Nutrition Focused Physical Exam: Unable to Complete Exam: Patient out of room Physical exam performed on (date): Assessment of Malnutrition: Malnutrition Identified: Additional Information Needed Nutrition Problem: Inadequate oral intake related to stroke alert as evidenced by NPO. Status of Nutrition Diagnosis: New Nutrition Interventions and Recommendations: PO per PRINCIPAL GIFTS OFFICER If appetite increased consider CC2 diet restriction Boost [facility] TID Continue appetite stimulant Consider initiation of enteral nutrition if appetite remains poor. Isosource 1.5 @ goal rate 60 ml/hr (1320 ml/day) provides 1980 kcal, 90g protein, 232g CHO, 20g fiber, 78g fat, 1008 ml water and 132% RDIs vit/min. Nutrition Monitoring and Goals: Tolerate PO intake >75% Do not remove DHT until PO >50% NFPE on follow up as able [place] WNL Acuity Level: 3 Savanna Rodriguez, RD, LD [1] No past medical history on file. [2] No past surgical history on file. [3] No Known Allergies [4] carvedilol, 12.5 mg, Oral, BID enoxaparin, 40 mg, Subcutaneous, Daily iohexol, 300 mL, Other, Once in imaging [START ON 09/02/2025] levothyroxine, 100 mcg, Oral, q AM lisinopril, 5 mg, Oral, Daily mirtazapine, 30 mg, Oral, Nightly mupirocin, 1 Application, Each Nostril, BID polyethylene glycol, 17 g, Oral, BID rosuvastatin, 40 mg, Oral, Nightly scopolamine, 1 patch, Transdermal, q72h senna-docusate, 2 tablet, Oral, BID Insert peripheral IV, , , Once AND Saline lock IV, , , Once AND sodium chloride, 10 mL, Intravenous, q12h AND sodium chloride, 10 mL, Intravenous, PRN venlafaxine, 75 mg, Oral, BID * Progress Notes - Tanika Cooney APRN - 09/01/2025 2:26 PM EDT Neurology Stroke Progress Note Subjective: No acute events overnight. This morning, patient is seen and examined while lying in bed and noted to have increased lethargy, delayed responses, and does not follow commands. Given change in neuro status, stat CT head ordered which showed stable ICH with increased cerebral edema and brain compression. Patient with improved alertness, mentation, and exam participation upon returned to floor. Discussed with family and nursing that exam change could be related to narcotics and trazodone administered overnight therefore, we will defer further administration at this time. Recommend delirium precautions and encouragement of appropriate sleep/wake cycle. She continues to have ongoing hypertension therefore, lisinopril 5 mg daily ordered. Her uremia is improving. UA showed bacteria and leukocytes however, no WBCs and patient is asymptomatic on exam. Procalcitonin remains unremarkable and patient remains afebrile and HDS therefore, we will continue to trend at this time. Given no BM since prior to admission, bisacodyl suppository ordered. No further concerns from nursing. Plan of care reviewed with nurse. Discussed plan of care with patient's granddaughter at bedside. ROS: A 14pt ROS was deferred due to aphasia Objective: Vital Signs: Visit Vitals BP (!) 159/85 (BP Location: Right arm, Patient Position: Lying) Pulse 62 Temp 36.6 ??C (97.9 ??F) (Axillary) Resp 16 Ht 1.727 m (5' 8 ) Wt 75 kg (165 lb 5.5 oz) SpO2 95% BMI 25.14 kg/m?? OB Status Postmenopausal Smoking Status Former BSA 1.9 m?? Laboratory Testing (all labs personally reviewed and interpreted): Results from last 7 days Lab Units 09/01/2521808/31/2512908/30/25333 WBC 10*3/uL 12.80* 13.01* 9.77 HEMOGLOBIN g/dL 14.4 14.5 13.1 HEMATOCRIT % 42.5 42.4 38.7 PLATELETS 10*3/uL 368 375* 345 Results from last 7 days Lab Units 09/01/2521808/31/2512908/30/[id number]/28/2531908/27/252110 SODIUM mmol/L 136 137 139 < > 135* POTASSIUM mmol/L 3.9 3.7 4.1 < > 4.6 CHLORIDE mmol/L 101 102 106 < > 102 CO2 mmol/L 23 23 23 < > 21* BUN mg/dL 34* 36* 35* < > 14 CREATININE mg/dL 0.62 0.60 0.67 < > 0.56* CALCIUM mg/dL 9.6 9.4 9.8 < > 8.5* BILIRUBIN TOTAL mg/dL 0.8 -- -- -- 0.7 ALKALINE PHOSPHATASE U/L 108 -- -- -- 97 ALT U/L 20 -- -- -- 24 AST U/L 24 -- -- -- 46* GLUCOSE mg/dL 167* 205* 143* < > 171* < > = values in this interval not displayed. Results from last 7 days Lab Units 08/27/252110 APTT sec 28 INR 1.0 Results from last 7 days Lab Units 09/01/2521808/31/2512908/30/25333 MAGNESIUM mg/dL 2.0 1.9 2.1 Medications: Current Scheduled Medications[1] PRN Current PRN Medications[2] Physical Exam: Constitutional: Patient in no acute distress. Patient appears stated age. C- collar in place Ears, Nose, Mouth, Throat: Mucous membranes appear moist. No appreciable hearing impairment. Nares patent. Dobhoff tube in place. Eyes: PERRLA @ 3mm, Anicteric sclera. No appreciable conjunctival injection. Cardiovascular: Radial pulse patent. No appreciable murmurs, gallops, or rubs. No appreciably irregular rhythm. No appreciable edema. Respiratory: Clear to auscultation throughout on room air. Symmetric chest expansion. Non-labored breathing. Gastrointestinal: Soft, nontender, nondistended. Normoactive bowel sounds x 4. Genitourinary: No appreciable bladder distention. Musculoskeletal: No appreciable joint swelling. No appreciable joint deformities. No appreciable lower extremity warmth or erythema in either leg. Psychiatric: Appropriate mood and affect. Patient is cooperative. Neurological Examination: Mental Status: Alert and unable to assess orientation. Follows two step commands. Language: Moderate expressive aphasia. Trace dysarthria. Concentration and attention full. Cranial Nerves: Aside from mild right central facial palsy, left quadrantanopsia; no appreciable deficit in cranial nerves II-XII. Motor: Normal tone and bulk throughout. Left upper extremity 4/5. Right upper extremity 0/5. Left lower extremity 4/5. Right lower extremity 1/5. Sensory: Sensation mildly decreased to right upper and lower extremity Coordination: No appreciable limb ataxia. Gait: Deferred due to weakness. Imaging personally reviewed and interpreted CT head on 09/01 showed stable ICH in left cerebral hemisphere with increase cerebral edema and brain compression Assessment/Plan: Lyla Warren is a 60 y.o. female who presented with right side weakness, right facial droop, and hemianopia. Past medical history includes ACDF (C4-C5) day prior at OSH, hypothyroidism, diabetes,and HLD. Comprehensive stroke workup completed with diagnosis of left frontal lobe IPH with associated SAH and left M3 branch occlusion secondary to concern for an initial ischemic stroke with subsequent hemorrhagic conversion. 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 - Thrombolytics not given w/ hemorrhage on imaging - Thrombectomy not indicated with no large vessel occlusion - Stroke mechanism: concern for ischemic stroke d/t ESUS and subsequent bleed - Stroke labs include A1C 6.2, TSH 1.44, LDL 78. - CT head: CT head posterior left frontal lobe IPH with SAH, - CTA head and neck with no large vessel occlusion, no significant stenosis however noted concerns for moderate narrowing of left LEEROY. - DSA on 08/29/25 with left MCA M3 occlusion with corresponding wedge defect and capillary perfusion defect. - MRI head w/o contrast with posterior left frontal lobe IPH w/ adjacent SAH and IVH. - Transthoracic ECHO: pending - PT/OT recommend Acute rehab - PRINCIPAL GIFTS OFFICER recommend soft/bite sized consistency with thin liquids - PHQ/MoCA: pending prior to discharge - Blood pressure goals: normotension - Secondary stroke risk reduction includes high intensity statin and plan for antiplatelet therapy 3 weeks post hemorrhage. - Recommend to stop estradiol for hot flashes. - 09/01, stat CT head for increased sedation, delayed responses, and not following commands. Exam returned to baseline upon return to floor. Follow up needs: - PCP as soon as able for continued comorbidity care - [facility] in 3 months for continued stroke care - EP Cardiology in 6-8 weeks to evaluate residential monitor results and assess for need for ILR due toconcern for occult Afib as ESUS etiology of stroke #Dysphagia due to stroke POA #Feeding difficulty due to stroke POA - 08/30, MBS with recommendations for IDDSI Level 6- Soft & Bite Sized with IDDSI Level 0-Thin Liquids by single spoon or cup sips only. NO STRAWS. NO CONSECUTIVE SIPS. - Will consider removal of DHT today based on PO intake #Hypertension POA - Goal for normotension - 08/31, Continue carvedilol 12.5mg BID and will consider starting another agent for SBP above goal. - 09/01, lisinopril 5 mg daily added for ongoing hypertension #Hx of spinal fusion. - Patient had C4-C5 spinal fusion anterior approach at [facility] on 08/26/[address] Bedoya (Orthopedics department) - Currently has cervical collar in place. - Consulted [facility] who recommended to reach out to Dr. Bedoya about post op recs and keep cervical collar in place until then. - Per orthopedics at [facility], C-collar should be kept in place, can be removed when eating, drinking and showering. Daughter says that was the same instruction she was given by Dr. Bedoya who performed the procedure. - Has follow up appointmet with Dr. Bedoya on 09/09/25. - 08/31, Started low dose PRN gabapentin to assist with pain. - 09/01, encouraged use of gabapentin should patient report pain #Leukocytosis - Has been afebrile and HDS - 08/31, Mildly uptrending today. Will consider a UA. - 09/01, UA unremarkable without s/s of UTI; afebrile, HDS - Procalcitonin unremarkable #Hyperlipidemia POA - LDL 78 - Continue statin therapy #Diabetes POA - home regimen on metformin 500mg BID - A1C 6.2 - Continue glucose checks with SSI coverage #Depression/anxiety POA - Home cymbalta 60mg daily on hold - Started on effexor 75mg BID during this hospitalization #Thrombocytosis - 08/31, Mildly uptrending. - 09/01, improved #Uremia - 08/31, Mildly uptrending. - 09/01, mildly improved; continue to encourage PO hydration. #Slow transit constipation due to stroke POA - bowel regimen with goal for BM at least every 72 hrs - 09/01, LBM RECONCILIATION MANAGER; bisacodyl suppository ordered #QT prolongation POA - On admit, QTc 518 - 08/28, QTC 500 - Avoid QT prolonging agents when able #FEN - HLIV - Monitor and replace prn - Diet order #DVT PPX - SCDs and pLov #Dispo - Acute pending BP control - Code status: Full Code Patient assessment and plan has been discussed with the attending physician. Tanika Cooney APRN [employer] [facility] Secure Chat Preferred Dictation software disclaimer: Parts of this note was generated using voice dictation software. Although proofread, there may be spelling errors, changes in dictated words, and words inserted which may have been misinterpreted by voice dictation software. Meaning of words may require interpretationin the appropriate context of the sentence and clinical situation. [1] carvedilol, 12.5 mg, Oral, BID enoxaparin, 40 mg, Subcutaneous, Daily iohexol, 300 mL, Other, Once in imaging [START ON 09/02/2025] levothyroxine, 100 mcg, Oral, q AM lisinopril, 5 mg, Oral, Daily mirtazapine, 30 mg, Oral, Nightly mupirocin, 1 Application, Each Nostril, BID polyethylene glycol, 17 g, Oral, BID rosuvastatin, 40 mg, Oral, Nightly scopolamine, 1 patch, Transdermal, q72h senna-docusate, 2 tablet, Oral, BID Insert peripheral IV, , , Once AND Saline lock IV, , , Once AND sodium chloride, 10 mL, Intravenous, q12h AND sodium chloride, 10 mL, Intravenous, PRN venlafaxine, 75 mg, Oral, BID [2] acetaminophen, 1,000 mg, Oral, q6h PRN OR acetaminophen, 1,000 mg, Nasogastric, q6h PRN OR acetaminophen, 650 mg, Rectal, q6h PRN bisacodyl, 10 mg, Rectal, Daily PRN gabapentin, 100 mg, Oral, BID PRN hydrALAZINE, 10 mg, Intravenous, q1h PRN OR hydrALAZINE, 20 mg, Intravenous, q1h PRN labetalol, 10 mg, Intravenous, q1h PRN OR labetalol, 20 mg, Intravenous, q1h PRN melatonin, 6 mg, Oral, Nightly PRN ondansetron, 4 mg, Intravenous, q6h PRN Insert peripheral IV, , , Once AND Saline lock IV, , , Once AND sodium chloride, 10 mL, Intravenous, q12h AND sodium chloride, 10 mL, Intravenous, PRN traZODone, 50 mg, Oral, Nightly PRN * Nursing Note - Janine Hernandez RN - 09/01/2025 1:15 PM EDT Stroke Team Interdisciplinary Transition of Care Huddle (STITCH) Patient: Lyla Celis Care Team: Patient Care Team: System, Provider Not In, MD as PCP - General (Family Medicine) Staff Present: Grants Assistant, Pharmacy, Speech Therapy, Physical/Occupational Therapy, Neuroscience Nurse Navigator, Stroke ARELI, and Stroke Tea Tree Farmer Level of Care: Progressive Status: stable Has acute recs, has a diet, pending improved BP control and further work up of leukocytosis. Janine Hernandez RN 09/01/25 1:16 PM * Progress Notes - Franklin Barker - 09/01/2025 11:59 AM EDT Physical Therapy Treatment Patient Name: Lyla Warren Today's Date: 09/01/2025 PT Discharge Recommendations: Acute rehab Equipment Recommended: Defer to facility Subjective Pt is agreeable to therapy session in the therapy gym. Pt reports that she got up to the chair yesterday with nursing. Participants in Care Family/Caregiver Present: Yes Family/Caregiver: (multiple family members.) Mine Motor Operator: Not Applicable Presentation Oxygen Therapy: None (Room air) Lines and Tubes: Intravenous access, Telemetry, Dobhoff Pre-Session: Supine, Head of bed elevated, Lines intact, Bed alarm Pre-Session Comments: PT donned c-collar Post-Session: Sitting in chair, Chair alarm, Lines intact, RN notified, Call light in reach, SCDs applied Orthoses: C-Collar Precautions Medical Precautions: Spinal Spinal Precautions : C-collar at all times Medical Precautions: SBP < 150 Objective Pain Pt does not report any pain. Pt was positioned for comfort at the end of the session. Delirium Screening RASS: Alert and calm Confusion Assessment Method-ICU (CAM-ICU/PCAM-ICU) Feature 3: Altered Level of Consciousness: Negative Therapeutic Activity (15 minutes) Pt participated in bed mobility and transfers in an attempt to increase strength and upright activity tolerance/endurance for improved functional mobility. Bed Mobility Bed Mobility Interventions: Pt demonstrated rolling to the left with verbal and tactile cues to bend right knee into hook lying position with foot flat on the bed to use for push off and reach RUE across midline. Pt required manual assist from PT to reach RUE across midline. PT provided verbal and tactile cues to swing BLE off the side of the bed and use BUE to push upper trunk into midline sitting position. For scooting, PT provided verbal, tactile, and visual gesture to scoot anteriorly towards the edge of the bed/chair by shifting weight laterally in order to off weight contralateral hip with manual assist from PT to scoot closer to the edge of the chair/bed. Bed Mobility Exam: Rolling/Turning Level of [place]: Moderate assist (50% patient effort) (to the L) Physical/Nonphysical Assist: Set-up required, Verbal Cues, Additional assist utilized for safety, Nonverbal cues (demo/gestures), Supervision Bed Mobility Exam: Scooting/Bridging Level of [place]: Moderate assist (50% patient's effort) Physical/Nonphysical Assist: Set-up required, Supervision, Verbal Cues, Additional assist utilized for safety, Nonverbal cues (demo/gestures) Bed Mobility Exam: Supine to Sit Level of [place]: Moderate assist (50% patient's effort) Physical/Nonphysical Assist: Set-up required, Supervision, Verbal Cues, Additional assist utilized for safety, Nonverbal cues (demo/gestures) Transfers Transfer Interventions: bed to chair 1x, sit to stand: 1x from edge of bed, 3x from edge of chair. PT provided BUE support under axilla and handheld assist with tactile cue for anterior weight shift. PT blocked R knee to prevent buckling and blocked R foot for good base of support and to prevent external rotation of RLE. PT provided tactile cues for lateral weight shifts during bed to chair transfer with PT manually moving RLE for sidesteps. PT provided verbal cues to step with LLE towards thechair, and to slowly sit down in the chair. Transfer Exam: Sit to stand Level of [place]: Moderate assist (50% patient's effort) Physical/Nonphysical Assist: Set-up required, Supervision, Verbal Cues, Additional assist utilized for safety, Nonverbal cues (demo/gestures) Assistive Device: Hand held assist Transfer Exam: Stand to Sit Level of [place]: Moderate assist (50% patient's effort) Physical/Nonphysical Assist: Set-up required, Supervision, Verbal Cues, Additional assist utilized for safety, Nonverbal cues (demo/gestures) Assistive Device: Hand held assist Transfer Exam: Bed to Chair/Chair to Bed Level of [place]: Moderate assist (50% patient's effort) Physical/Nonphysical Assist: Set-up required, Supervision, Verbal Cues, Additional assist utilized for safety, Nonverbal cues (demo/gestures) Type of Transfer: Sidesteps Assistive Device: Hand held assist Neuromuscular Re-Education (23 minutes) Pt participated in sitting and standing balance exercises in an attempt to increase postural control, coordination, and midline awareness for improved functional mobility. Balance Balance Interventions: Sitting: Pt participated in reaching, grasping, and placement using cones with LUE, reaching anterolateral to the left and placing object anterolateral to the right 5x at shoulder height. Reaching anterolateral to the right across midline with placement anterolateral to the L 5x at shoulder height.Reaching above shoulder with LUE anterolateral to the left and anterolateral to the right 3x each direction towards visual target using PT's hand. Pt demonstrated poor trunk control with weight shiftposterior to midline and towards the side of reaching. PT completed one trial of reaching with LUE using the [employer] System, but regressed to using the cones for simplicity due to pt cognitive status. Standing (3-4 minutes 2x): Pt performed static standing with LUE on handrail for support and balance and mirror in front for visual feedback. PT provided tactile cue at pelvis for hip extension, B shoulders for trunk extension, blocking right knee and foot to prevent buckling, promote safe/even base of support, and prevent external rotation of RLE due to extensor spacticity. Pt demonstrated trunkrotation to the right, with pt responding better to external focus rather than verbal cue to correct posture with left trunk rotation. Pt demonstrated lateral weight shifts with PT providing tactile cue at pelvis to promote weight shift and verbal cue to push her left shoulder into the wall to prevent weight shift right of midline. Postural Appearance Posture: Weight shift right of midline, Weight shift posterior to midline Static Sitting Balance Static Sitting-Balance Support: Left upper extremity support, Feet supported Static Sitting-Level of Assistance: Minimum assistance Dynamic Sitting Balance Dynamic Sitting-Balance Support: Feet supported, No upper extremity support Dynamic Sitting-Balance: Lateral weight shifts, Anterior/Posterior weight shifts, Reaching for objects, Reaching across midline Level of Assistance: Moderate assistance Static Standing Balance Static Standing-Balance Support: Left upper extremity support, Right upper extremity support Static Standing-Level of Assistance: Moderate assistance Dynamic Standing Balance Dynamic Standing-Balance Support: Right upper extremity support, Left upper extremity support Dynamic Standing-Balance: Lateral weight shifts, Anterior/Posterior weight shifts Dynamic Standing Level of Assistance: Maximum assistance (progressed to moderate assist) Assessment Pt tolerated the session with no adverse effects. Pt progressed with standing upright activity tolerance during the session today and performed pre-gait exercises with lateral weight shifts. PT donned cervical collar prior to the session and ensured a secure fit. Pt was limited during the session 2/2 global aphasia. Pt will continue to benefit from skilled physical therapy services in order to increase strength, coordination, midline awareness, postural control, upright activity tolerance/endurance, improve motor planning, decrease fall risk, reduce burden of care, and increase post stroke IND with ADLs and mobility. PT Recommendations Discharge Destination: Acute rehab Discharge Equipment: Defer to facility Plan Continue with PT POC PT Goals PT GOAL DETAILS Goal Established Date Time Frame Goal Status PT Goal 1: Pt will perform supine<>sit with Autumn. 08/28/25 2 weeks PT Goal 2: Pt will perform sit to stands and bed to chair transfer with Autumn. 08/28/25 2 weeks PT Goal 3: Pt will perform dynamic sitting balance at edge of bed with CGA, > than 5 minutes with stable vital signs. 08/28/25 2 weeks PT Goal 4: Pt and pt's family will verbalize HEP and discharge recommendations prior to discharge from acute care hospital. 08/28/25 2 weeks Written by Franklin Barker on 09/01/25 at 2:51 PM. Cosigned by Colleen Florence at 09/02/2025 8:41 AM EDT Associated attestation - Colleen Florence - 09/02/2025 8:41 AM EDT I attest that I have consulted with and reviewed this document written by the physical therapy student and am in agreement with its contents * Progress Notes - Mariaa Carlisle - 09/01/2025 11:58 AM EDT OCCUPATIONAL THERAPY TREATMENT PATIENT DATA Patient Name Lyla Warren Session Date 09/01/2025 OT Discharge Recommendations Acute rehab Equipment Recommendations Defer to facility Transportation Recommendations Wheelchair van MOBILITY GUIDELINES Mobility Protocol: General - Mobility Guidelines Extremity Precautions: Extremity Precautions Extremity: RUE Mobility Restrictions (RUE): Other Other: Weight bearing up to 10 lbs. Type of Brace (RUE): None Other mobility precautions: No other precautions required PRECAUTIONS Medical Precautions Medical Precautions: Spinal Spinal Precautions : C-collar at all times Medical Precautions: SBP < 150 PRESENTATION Oxygen None (Room air) Telemetry Yes Lines and Tubes Female External Urinary Catheter 08/28/25 0230 (Active) Feeding Tube Gastric 10 Fr. Right nare (Active) Peripheral IV 08/27/25 Posterior;Right Hand (Active) Pre-Session Supine, Head of bed elevated, Lines intact, Bed alarm Post-Session Sitting in chair, Chair alarm, Lines intact, RN notified, Call light in reach, SCDs applied Bracing (if applicable) Orthoses: C-Collar SUBJECTIVE PARTICIPANTS IN CARE Patient/Caregiver Comments Pt agreeable to OT session. Visitors Present Yes (multiple family members) Mine Motor Operator (if applicable) OBJECTIVE PAIN Pt with mild complaints of neck pain, did not rate. Positioned for comfort with c-collar properly donned. DELIRIUM SCREENING RASS: Alert and calm Confusion Assessment Method-ICU (CAM-ICU/PCAM-ICU) Feature 3: Altered Level of Consciousness: Negative BED MOBILITY Level of [place] Physical/Non-physical Assist Adaptive Equipment Utilized Rolling/ Turning Moderate assist (50% patient effort) Set-up required, Verbal Cues, Additional assist utilized for safety, Nonverbal cues (demo/gestures), Supervision Scooting/ Bridging Moderate assist (50% patient's effort) Set-up required, Supervision, Verbal Cues, Additional assist utilized for safety, Nonverbal cues (demo/gestures) Supine to Sit Moderate assist (50% patient's effort) Set-up required, Supervision, Verbal Cues, Additional assist utilized for safety, Nonverbal cues (demo/gestures) Sit to Supine TRANSFERS Level of [place] Physical/Non- physical Assist Adaptive Equipment Utilized Sit to Stand Moderate assist (50% patient's effort) Set-up required, Supervision, Verbal Cues, Additional assist utilized for safety, Nonverbal cues (demo/gestures) Hand held assist Stand to sit Moderate assist (50% patient's effort) Set-up required, Supervision, Verbal Cues, Additional assist utilized for safety, Nonverbal cues (demo/gestures) Hand held assist Bed to Chair Moderate assist (50% patient's effort) Sidesteps Set-up required, Supervision, Verbal Cues, Additional assist utilized for safety, Nonverbal cues (demo/gestures) Hand held assist Toilet Transfer Shower Transfer INTERVENTIONS SELF-CARE Treatment Minutes (if applicable) 15 Comments Level of [place] Adaptive Equipment Utilized Interventions Feeding Grooming Bathing Upper Body Dressing Dependent Bed level While bed level with HOB flat, c-collar dependently re-adjusted with front piece doffed upon entry. Lower Body Dressing Sock Level of Assistance: Dependent Pt required dep A to don socks while bed level due to R hemiplegia and significantly increased extensor tone in RLE. Toileting Moderate assistance Pt completed simulated toilet transfer from bed to chair via stand pivot with mod A. [facility] Community Re-Entry Neuromuscular Re-Education (23 minutes) Visual Scanning Therapist engaged patient in [employer] Integrated Therapy System (BITS) x 2 trials to improve performance with visual scanning. OT initially engaged pt in visual sequencing, however pt was unable to locate numbers to far R visual field despite cuing. OT graded activity and downgraded to self paced visual scanning with dots. Pt again, had difficulty locating visual stimulus without max cueing and physical assist for trunk rotation - unable to encourage cervical rotation due to c-collar. OT then graded activity and downgraded to pt sitting unsupported in bedside chair with dynamic reaching with LUE to graso/release cones X 5 reps going from R to L and L to R. OT graded activity and elevated height of cones to achieve greater dynamic movement, as well as encourage shoulder flexion and reachingoutside base of support. Pt able to achieve this task with minimal cues and assist for dynamic balance. Noted slight difficulty with shoulder flexion on L to achieve full functional reach. Weight-Bearing Therapist facilitated weight-bearing activity onto right palm with mild elbow flexion while seated edge of bed to promote proprioceptive input to improve return of functional use. Continues to exhibit 0/5 grossly. GivMohr Sling Therapist assessed need for and trialed simulated Giv Jeff to RUE (utilizing draw sheet) to assist in joint approximation and preserve glenohumeral joint to prevent subluxation and to assist in postural alignment during functional mobility. ASSESSMENT Pt tolerated treatment session well without adverse effects, noted to have vital signs stable throughout. Pt continues to exhibit RUE flaccidity with RLE extensor tone, aphasia and R inattention requiring mostly mod A for transfers. Pt would be unable to access a bathroom, unable to enter/exit a home and unable to manage their own medications correctly to prevent readmission. Pt requires assistance in all aspects of transfers, mobility and self-care tasks. In addition, pt is at a high risk of falls and would be unable to take care of self independently at this time. Pt is most appropriate foracute rehab at this time. Pt would be able to participate in 3 hours/day of therapy with good potential for progress in functional independence. It also would be appropriate to reduce caregiver burden and provide an avenue for future caregiver training if applicable. OT RECOMMENDATIONS Discharge Destination Acute rehab Discharge Equipment Defer to facility PLAN Continue with OT POC, 2-5x/wk OT GOALS OT GOAL DETAILS Goal Established Date Time Frame Goal Status OT Goal 1: Pt will be CGA to stand pivot to BSC to complete toileting, bilateral hand held assist 08/28/25 2 weeks OT Goal 2: Pt will be Autumn for sitting balance at EOB to complete singular grooming task 08/28/25 2 weeks OT Goal 3: Pt will be AOx4 2/2 sessions 08/28/25 2 weeks OT Goal 4: Pt will perform multistep commands with 50% accuracy 2/2 sessions to complete ADL task 08/28/25 2 weeks Written by Mariaa Carlisle on 09/01/25 at 1:37 PM. * Care Plan - Alyssa Shaw RN - 08/31/2025 9:00 PM EDT Problem: Adult Inpatient Plan of Care Goal: Plan of Care Review Outcome: Ongoing, Progressing Flowsheets Taken 08/30/20252146 by Alyssa Shaw, RN Progress: improving Taken 08/30/2025 1149 by Carlos Lovell RN Plan of Care Reviewed With: patient caregiver grandchild(gita) Taken 08/28/20252033 by Vale Milan Outcome Evaluation: pain Goal: Patient-Specific Goal (Individualized) Outcome: Ongoing, Progressing Flowsheets (Taken 08/31/2025 195) Patient/Family-Specific Goals (Include Timeframe): pt to remain free of falls Individualized Care Needs: safety Anxieties, Fears or Concerns: none Goal: Absence of Hospital-Acquired Illness or Injury Outcome: Ongoing, Progressing Intervention: Identify and Manage Fall Risk Flowsheets (Taken 08/31/2025 1600 by Bridgett Rodriguez) Safety Promotion/Fall Prevention: activity supervised assistive device/personal items within reach clutter-free environment maintained fall prevention program maintained lighting adjusted mobility aid in reach Intervention: Prevent Skin Injury Flowsheets Taken 08/31/20251956 by Alyssa Shaw, SEDA Body Position: turned Taken 08/28/2025 0625 by Analy Salter Skin Protection: incontinence pads utilized Intervention: Prevent and Manage VTE (Venous Thromboembolism) Risk Flowsheets (Taken 08/31/2025 1600 by Bridgett Rodriguez) VTE Prevention/Management: bilateral SCDs (sequential compression devices) on Intervention: Prevent Infection Flowsheets (Taken 08/30/2025 1149 by Carlos Lovell, RN) Infection Prevention: hand hygiene promoted Goal: Optimal Comfort and Wellbeing Outcome: Ongoing, Progressing Intervention: Monitor Pain and Promote Comfort Flowsheets (Taken 08/31/20251955) Pain Management Interventions: medication (see MAR) Intervention: Provide Person-Centered Care Flowsheets (Taken 08/30/2025 114 by Carlos Lovell, RN) Trust Relationship/Rapport: care explained questions answered Problem: Fall Injury Risk Goal: Absence of Fall and Fall-Related Injury Outcome: Ongoing, Progressing Intervention: Identify and Manage Contributors Flowsheets Taken 08/31/2025 1136 by Bridgett Rodriguez Medication Review/Management: medications reviewed Taken 08/30/2025 1149 by Carlos Lovell, RN Self-Care Promotion: independence encouraged Intervention: Promote Injury-Free Environment Flowsheets (Taken 08/31/2025 1600 by Bridgett Rodriguez) Safety Promotion/Fall Prevention: activity supervised assistive device/personal items within reach clutter-free environment maintained fall prevention program maintained lighting adjusted mobility aid in reach Problem: Stroke, Intracerebral Hemorrhage Goal: Optimal Coping Outcome: Ongoing, Progressing Intervention: Support Psychosocial Response to Stroke Flowsheets Taken 08/31/2025 1136 by Bridgett Rodriguez Supportive Measures: self-care encouraged Taken 08/30/2025 1149 by Carlos Lovell, senior commissions analyst/Support System Care: caregiver stress acknowledged presence promoted self-care encouraged Goal: Effective Bowel Elimination Outcome: Ongoing, Progressing Intervention: Promote Effective Bowel Elimination Flowsheets (Taken 08/30/2025 1149 by Carlos Lovell, RN) Bowel Elimination Management: hygiene measures promoted Bowel Program: maintenance program followed Goal: Optimal Cerebral Tissue Perfusion Outcome: Ongoing, Progressing Intervention: Protect and Optimize Cerebral Perfusion Flowsheets Taken 08/30/2025 1149 by Carlos Lovell RN Sensory Stimulation Regulation: care clustered Cerebral Perfusion Promotion: blood pressure monitored Taken 08/29/20252307 by Alyssa Shaw RN Stabilization Measures: legs elevated Taken 08/28/2025 0625 by Analy Salter Fluid/Electrolyte Management: electrolyte supplement adjusted Goal: Optimal Cognitive Function Outcome: Ongoing, Progressing Intervention: Optimize Cognitive Function Flowsheets (Taken 08/30/2025 114 by Carlos Lovell, RN) Sensory Stimulation Regulation: care clustered Reorientation Measures: clock in view Environment Familiarity/Consistency: daily routine followed Goal: Effective Communication Skills Outcome: Ongoing, Progressing Intervention: Optimize Communication Skills Flowsheets (Taken 08/30/20251148 by Carlos Lovell, RN) Communication Enhancement Strategies: call light answered in person extra time allowed for response nonverbal strategies used Goal: Optimal Functional Ability Outcome: Ongoing, Progressing Intervention: Optimize Functional Ability Flowsheets Taken 08/31/20251956 by Alyssa Shaw RN Activity Management: activity adjusted per tolerance Taken 08/30/20251148 by Carlos Lovell RN Self-Care Promotion: independence encouraged Taken 08/29/20252307 by Alyssa Shaw RN Adaptive Equipment Use: used independently Goal: Improved Oral Intake Outcome: Ongoing, Progressing Intervention: Promote and Optimize Fluid and Food Intake Flowsheets Taken 08/30/20251148 by Carlos Lovell RN Nutrition Interventions: other (see comments) Taken 08/28/2025624 by Analy Salter Oral Nutrition Promotion: nutrition counseling provided Goal: Optimal Pain Control and Function Outcome: Ongoing, Progressing Intervention: Monitor and Manage Pain Flowsheets Taken 08/31/20251955 Pain Management Interventions: medication (see MAR) Taken 08/29/20252307 Complementary Therapy: (ice packs) other (see comments) Spiritual Activities Assistance: affirmation provided Goal: Effective Oxygenation and Ventilation Outcome: Ongoing, Progressing Intervention: Optimize Oxygenation and Ventilation Flowsheets Taken 08/31/20251956 by Alyssa Shaw RN Head of Bed (HOB) Positioning: HOB elevated Taken 08/30/2025 1600 by Carlos Lovell RN Cough And Deep Breathing: done independently per patient Taken 08/30/2025 1149 by Carlos Lovell RN Airway/Ventilation Management: pulmonary hygiene promoted Goal: Improved Sensorimotor Function Outcome: Ongoing, Progressing Intervention: Optimize Range of Motion, Motor Control and Function Flowsheets Taken 08/30/2025 1600 by Carlos Lovell RN Range of Motion: active ROM (range of motion) encouraged Taken 08/30/2025 1149 by Carlos Lovell RN Positioning/Transfer Devices: pillows Taken 08/29/20252307 by Alyssa Shaw RN Positioning: Shoulder: safety cues provided Spasticity Management: weight-bearing facilitated Intervention: Optimize Sensory and Perceptual Ability Flowsheets Taken 08/30/2025 114 by Carlos Lovell RN Pressure Reduction Techniques: frequent weight shift encouraged Pressure Reduction Devices: positioning supports utilized Taken 08/29/20252307 by Alyssa Shaw RN Sensation Impairment Protection: cues provided for safety Goal: Safe and Effective Swallow Outcome: Ongoing, Progressing Intervention: Optimize Eating and Swallowing Flowsheets Taken 08/30/2025 114 by Carlos Lovell RN Aspiration Precautions: NPO pending swallow screening/evaluation oral hygiene care promoted respiratory status monitored Feeding/Eating Techniques: oral mucosa moistened Taken 08/29/20252307 by Alyssa Shaw RN Swallowing Interventions: Dysphagia: other (see comments) Swallowing Method: other (see comments) Goal: Effective Urinary Elimination Outcome: Ongoing, Progressing Intervention: Promote Effective Bladder Elimination Flowsheets (Taken 08/30/20251148 by Carlos Lovell RN) Urinary Elimination Promotion: absorbent pad/diaper use encouraged frequent voiding encouraged positioned for ease of voiding voiding relaxation promoted Problem: Skin Injury Risk Increased Goal: Skin Health and Integrity Outcome: Ongoing, Progressing Intervention: Optimize Skin Protection Flowsheets Taken 08/31/2025 195 by Alyssa Shaw RN Activity Management: activity adjusted per tolerance Head of Bed (HOB) Positioning: HOB elevated Taken 08/30/2025 114 by Carlos Lovell RN Pressure Reduction Techniques: frequent weight shift encouraged Pressure Reduction Devices: positioning supports utilized Taken 08/28/2025 0625 by Analy Salter Skin Protection: incontinence pads utilized Intervention: Promote and Optimize Oral Intake Flowsheets Taken 08/30/2025 114 by Nas, Carlos M, RN Nutrition Interventions: other (see comments) Taken 08/28/2025 0625 by Analy Salter Oral Nutrition Promotion: nutrition counseling provided Problem: Infection Goal: Absence of Infection Signs and Symptoms Outcome: Ongoing, Progressing Intervention: Prevent or Manage Infection Flowsheets Taken 08/31/2025 1136 by Bridgett Rodriguez Fever Reduction/Comfort Measures: lightweight bedding lightweight clothing Taken 08/31/2025 0800 by Bridgett Rodriguez Isolation Precautions: precautions maintained Taken 08/30/2025 1149 by Carlos Lovell RN Infection Management: aseptic technique maintained * Nursing Note - Bridgett Rodriguez - 08/31/2025 6:06 PM EDT Family at bedside, per Lindy (granddaughter) she will be first point of contact and should she not answer, instructed to call patients youngest daughter, Bridgett. Bridgett's number was added to patient contact list. Family and patient in agreement * Progress Notes - Madison Nielson RN - 08/31/2025 1:02 PM EDT Per MD, patient not medically ready to DC. Team still medically managing patient and monitoring ECHO results, VS, and leukocytosis. PT recs for Acute. [facility] ([phone]) following. CM left message to update. [facility] needed SS #: Patient's SS number is [id number] * Care Plan - Bridgett Rodriguez - 08/31/2025 11:37 AM EDT Problem: Adult Inpatient Plan of Care Goal: Plan of Care Review Outcome: Ongoing, Progressing Goal: Patient-Specific Goal (Individualized) Outcome: Ongoing, Progressing Goal: Absence of Hospital-Acquired Illness or Injury Outcome: Ongoing, Progressing Intervention: Identify and Manage Fall Risk Flowsheets (Taken 08/31/2025 0800) Safety Promotion/Fall Prevention: activity supervised assistive device/personal items within reach clutter-free environment maintained fall prevention program maintained lighting adjusted Goal: Optimal Comfort and Wellbeing Outcome: Ongoing, Progressing Problem: Fall Injury Risk Goal: Absence of Fall and Fall-Related Injury Outcome: Ongoing, Progressing Intervention: Identify and Manage Contributors Flowsheets (Taken 08/31/2025 1136) Medication Review/Management: medications reviewed Problem: Stroke, Intracerebral Hemorrhage Goal: Optimal Coping Outcome: Ongoing, Progressing Intervention: Support Psychosocial Response to Stroke Flowsheets (Taken 08/31/2025 1136) Supportive Measures: self-care encouraged Goal: Effective Bowel Elimination Outcome: Ongoing, Progressing Goal: Optimal Cerebral Tissue Perfusion Outcome: Ongoing, Progressing Goal: Optimal Cognitive Function Outcome: Ongoing, Progressing Goal: Effective Communication Skills Outcome: Ongoing, Progressing Goal: Optimal Functional Ability Outcome: Ongoing, Progressing Goal: Improved Oral Intake Outcome: Ongoing, Progressing Goal: Optimal Pain Control and Function Outcome: Ongoing, Progressing Goal: Effective Oxygenation and Ventilation Outcome: Ongoing, Progressing Goal: Improved Sensorimotor Function Outcome: Ongoing, Progressing Goal: Safe and Effective Swallow Outcome: Ongoing, Progressing Goal: Effective Urinary Elimination Outcome: Ongoing, Progressing Problem: Skin Injury Risk Increased Goal: Skin Health and Integrity Outcome: Ongoing, Progressing Intervention: Optimize Skin Protection Flowsheets (Taken 08/31/2025 1000) Activity Management: activity adjusted per tolerance Problem: Infection Goal: Absence of Infection Signs and Symptoms Outcome: Ongoing, Progressing Intervention: Prevent or Manage Infection Flowsheets (Taken 08/31/2025 1136) Fever Reduction/Comfort Measures: lightweight bedding lightweight clothing * Nursing Note - Prosper Arce - 08/31/2025 10:26 AM EDT Stroke Team Interdisciplinary Transition of Care Huddle (STITCH) Patient: LylaLyla Gray Care Team: Patient Care Team: System, Provider Not In, as PCP - General (Family Medicine) Staff Present: Grants Assistant, Acupressure Therapist, Pharmacy, Speech Therapy, Physical/Occupational Therapy, Neuroscience Nurse Navigator, Organ Tuner Electronic, Stroke ARELI, and Stroke Tea Tree Farmer Level of Care: Progressive Status: stable Acute Rec Echo has begun Prosper Arce 08/31/25 10:26 AM * Progress Notes - Alfredo Richardson APRN - 08/31/2025 9:47 AM EDT Neurology Stroke Progress Note Subjective: No acute events overnight. The patient is seen and examined this morning while in bed and eating breakfast. She reports feeling well but her exam is limited secondary to expressive aphasia. She passed her MBS yesterday with recommendations for soft and bite sized solids with thin liquids by single spoon or cup sips only. Will consider removing her DHT today pending tolerance of her diet. Her SBP has been above goal and will start amlodipine 5mg daily. UA pending for ongoing leukocytosis - though she has been afebrile and HDS. Lastly, have titrated her bowel regimen given no recorded stool in several previous days. No family at bedside, but will plan to call and provide updates as able. Reviewed the plan of care with nursing. ROS: A 14pt ROS was deferred due to aphasia Objective: Vital Signs: Visit Vitals BP (!) 169/77 (BP Location: Right arm, Patient Position: Lying) Comment: Debra MUNGUIA notified, instructed to hold off on BP PRN meds Pulse 59 Temp 36.8 ??C (98.2 ??F) (Axillary) Resp 15 Ht 1.727 m (5' 8 ) Wt 75 kg (165 lb 5.5 oz) SpO2 93% BMI 25.14 kg/m?? OB Status Postmenopausal Smoking Status Former BSA 1.9 m?? Laboratory Testing (all labs personally reviewed and interpreted): Results from last 7 days Lab Units 08/31/25 0130 08/30/25 03308/29/25 0053 WBC 10*3/uL 13.01* 9.77 10.61* HEMOGLOBIN g/dL 14.5 13.1 13.1 HEMATOCRIT % 42.4 38.7 37.2 PLATELETS 10*3/uL 375* 345 303 Results from last 7 days Lab Units 08/31/25 0130 08/30/25 0334 08/29/25 0053 08/28/25 0320 08/27/25 2111 SODIUM mmol/L 137 139 139 < > 135* POTASSIUM mmol/L 3.7 4.1 3.5* < > 4.6 CHLORIDE mmol/L 102 106 106 < > 102 CO2 mmol/L 23 23 24 < > 21* BUN mg/dL 36* 35* 24* < > 14 CREATININE mg/dL 0.60 0.67 0.52* < > 0.56* CALCIUM mg/dL 9.4 9.8 8.9 < > 8.5* BILIRUBIN TOTAL mg/dL -- -- -- -- 0.7 ALKALINE PHOSPHATASE U/L -- -- -- -- 97 ALT U/L -- -- -- -- 24 AST U/L -- -- -- -- 46* GLUCOSE mg/dL 205* 143* 146* < > 171* < > = values in this interval not displayed. Results from last 7 days Lab Units 08/27/25 2111 APTT sec 28 INR 1.0 Results from last 7 days Lab Units 08/31/25 0130 08/30/25 0334 08/29/25 0053 MAGNESIUM mg/dL 1.9 2.1 2.1 Medications: Current Scheduled Medications[1] PRN Current PRN Medications[2] Physical Exam: Constitutional: Patient in no acute distress. Patient appears stated age. C- collar in place Ears, Nose, Mouth, Throat: Mucous membranes appear moist. No appreciable hearing impairment. Nares patent. Dobhoff tube in place. Eyes: PERRLA @ 3mm, Anicteric sclera. No appreciable conjunctival injection. Cardiovascular: Radial pulse patent. No appreciable murmurs, gallops, or rubs. No appreciably irregular rhythm. No appreciable edema. Respiratory: Clear to auscultation throughout on room air. Symmetric chest expansion. Non-labored breathing. Gastrointestinal: Soft, nontender, nondistended. Normoactive bowel sounds x 4. Genitourinary: No appreciable bladder distention. Musculoskeletal: No appreciable joint swelling. No appreciable joint deformities. No appreciable lower extremity warmth or erythema in either leg. Psychiatric: Appropriate mood and affect. Patient is cooperative. Neurological Examination: Mental Status: Alert and unable to assess orientation. Follows two step commands. Language: Moderate expressive aphasia. Trace dysarthria. Concentration and attention full. Cranial Nerves: Aside from mild right central facial palsy, left quadrantanopsia; no appreciable deficit in cranial nerves II-XII. Motor: Normal tone and bulk throughout. Left upper extremity 4/5. Right upper extremity 0/5. Left lower extremity 4/5. Right lower extremity 1/5. Sensory: Sensation mildly decreased to right upper and lower extremity Coordination: No appreciable limb ataxia. Gait: Deferred due to weakness. Assessment/Plan: Lyla Warren is a 60 y.o. female who presented with right side weakness, right facial droop, and hemianopia. Past medical history includes ACDF (C4-C5) day prior at OSH, hypothyroidism, diabetes,and HLD. Comprehensive stroke workup completed with diagnosis of left frontal lobe IPH with associated SAH and left M3 branch occlusion secondary to concern for an initial ischemic stroke with subsequent hemorrhagic conversion. 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 - Thrombolytics not given w/ hemorrhage on imaging - Thrombectomy not indicated with no large vessel occlusion - Stroke mechanism under investigation w/ concern for ischemic stroke and subsequent bleed - Stroke labs include A1C 6.2, TSH 1.44, LDL 78. - CT head: CT head posterior left frontal lobe IPH with SAH, - CTA head and neck with no large vessel occlusion, no significant stenosis however noted concerns for moderate narrowing of left LEEROY. - DSA on 08/29/25 with left MCA M3 occlusion with corresponding wedge defect and capillary perfusion defect. - MRI head w/o contrast with posterior left frontal lobe IPH w/ adjacent SAH and IVH. - Transthoracic ECHO: pending - PT/OT recommend Acute rehab - PRINCIPAL GIFTS OFFICER recommend soft/bite sized consistency with thin liquids - PHQ/MoCA: pending prior to discharge - Blood pressure goals: normotension - Secondary stroke risk reduction includes high intensity statin and plan for antiplatelet therapy 3 weeks post hemorrhage. - Recommend to stop estradiol for hot flashes. Follow up needs: - PCP as soon as able for continued comorbidity care - [facility] in 3 months for continued stroke care - [facility]iology in 6-8 weeks to evaluate residential monitor results and assess for need for ILR due toconcern for occult Afib as ESUS etiology of stroke Follow up needs: - PCP as soon as able for continued comorbidity care - [facility] in 3 months for continued stroke care - [facility] Cardiology in 6-8 weeks to evaluate residential monitor results and assess for need for ILR due toconcern for occult Afib as ESUS etiology of stroke #Dysphagia due to stroke POA #Feeding difficulty due to stroke POA - 08/30, MBS with recommendations for IDDSI Level 6- Soft & Bite Sized with IDDSI Level 0-Thin Liquids by single spoon or cup sips only. NO STRAWS. NO CONSECUTIVE SIPS. - Will consider removal of DHT today based on PO intake #Hypertension POA - Goal for normotension - 08/31, Continue carvedilol 12.5mg BID and will consider starting another agent for SBP above goal. #Hx of spinal fusion. - Patient had C4-C5 spinal fusion anterior approach at [facility] on 08/26/[address] Bedoya (Orthopedics department) - Currently has cervical collar in place. - Consulted [facility] who recommended to reach out to Dr. Bedoya about post op recs and keep cervical collar in place until then. - Per orthopedics at [facility], C-collar should be kept in place, can be removed when eating, drinking and showering. Daughter says that was the same instruction she was given by Dr. Bedoya who performed the procedure. - Has follow up appointmet with Dr. Bedoya on 09/09/25. - 08/31, Started low dose PRN gabapentin to assist with pain. #Leukocytosis - Has been afebrile and HDS - 08/31, Mildly uptrending today. Will consider a UA. #Hyperlipidemia POA - LDL 78 - Continue statin therapy #Diabetes POA - home regimen on metformin 500mg BID - A1C 6.2 - Continue glucose checks with SSI coverage #Depression/anxiety POA - Home cymbalta 60mg daily on hold - Started on effexor 75mg BID during this hospitalization #Thrombocytosis - 08/31, Mildly uptrending. #Uremia - 08/31, Mildly uptrending. - Encourage PO hydration. #Slow transit constipation due to stroke POA - bowel regimen with goal for BM at least every 72 hrs - Will titrate bowel regimen for today #QT prolongation POA - On admit, QTc 518 - 08/28, QTC 500 - Avoid QT prolonging agents when able #FEN - HLIV - Monitor and replace prn - Diet order #DVT PPX - SCDs and pLov #Dispo - Acute pending read of ECHO/ BP control/leukocytosis - Code status: Full Code Patient assessment and plan has been discussed with attending physician, Alfredo Richardson APRN EPIC Secure Chat Preferred [1] carvedilol, 12.5 mg, Oral, BID enoxaparin, 40 mg, Subcutaneous, Daily iohexol, 300 mL, Other, Once in imaging levothyroxine, 100 mcg, Nasogastric, q AM mirtazapine, 30 mg, Nasogastric, Nightly mupirocin, 1 Application, Each Nostril, BID polyethylene glycol, 17 g, Oral, BID rosuvastatin, 40 mg, Nasogastric, Nightly scopolamine, 1 patch, Transdermal, q72h senna-docusate, 1 tablet, Oral, BID Insert peripheral IV, , , Once AND Saline lock IV, , , Once AND sodium chloride, 10 mL, Intravenous, q12h AND sodium chloride, 10 mL, Intravenous, PRN venlafaxine, 75 mg, Nasogastric, BID [2] acetaminophen, 1,000 mg, Oral, q6h PRN OR acetaminophen, 1,000 mg, Nasogastric, q6h PRN OR acetaminophen, 650 mg, Rectal, q6h PRN hydrALAZINE, 10 mg, Intravenous, q1h PRN OR hydrALAZINE, 20 mg, Intravenous, q1h PRN labetalol, 10 mg, Intravenous, q1h PRN OR labetalol, 20 mg, Intravenous, q1h PRN melatonin, 6 mg, Oral, Nightly PRN ondansetron, 4 mg, Intravenous, q6h PRN Insert peripheral IV, , , Once AND Saline lock IV, , , Once AND sodium chloride, 10 mL, Intravenous, q12h AND sodium chloride, 10 mL, Intravenous, PRN * Hospital Course - Alfredo Richardson APRN - 08/31/2025 9:13 AM EDT * Care Plan - Alyssa Shaw RN - 08/30/2025 9:49 PM EDT Problem: Adult Inpatient Plan of Care Goal: Plan of Care Review Outcome: Ongoing, Progressing Flowsheets Taken 08/30/20252146 by Alyssa Shaw RN Progress: improving Taken 08/30/2025 1149 by Carlos Lovell RN Plan of Care Reviewed With: patient caregiver grandchild(gita) Goal: Patient-Specific Goal (Individualized) Outcome: Ongoing, Progressing Flowsheets (Taken 08/30/2025 194) Patient/Family-Specific Goals (Include Timeframe): pt to remain free of falls Individualized Care Needs: safety Anxieties, Fears or Concerns: none Goal: Absence of Hospital-Acquired Illness or Injury Outcome: Ongoing, Progressing Intervention: Identify and Manage Fall Risk Flowsheets (Taken 08/30/2025 1600 by Carlos Lovell, RN) Safety Promotion/Fall Prevention: activity supervised clutter-free environment maintained fall prevention program maintained lighting adjusted mobility aid in reach nonskid shoes/slippers when out of bed room organization consistent safety round/check completed assistive device/personal items within reach toileting scheduled Intervention: Prevent Skin Injury Flowsheets Taken 08/30/2025 194 by Alyssa Shaw RN Body Position: turned Taken 08/28/2025624 by Analy Salter Skin Protection: incontinence pads utilized Intervention: Prevent and Manage VTE (Venous Thromboembolism) Risk Flowsheets (Taken 08/30/2025 1950) VTE Prevention/Management: bilateral SCDs (sequential compression devices) on Intervention: Prevent Infection Flowsheets (Taken 08/30/2025 114 by Carlos Lovell, RN) Infection Prevention: hand hygiene promoted Goal: Optimal Comfort and Wellbeing Outcome: Ongoing, Progressing Intervention: Monitor Pain and Promote Comfort Flowsheets (Taken 08/30/20252112) Pain Management Interventions: medication (see MAR) Intervention: Provide Person-Centered Care Flowsheets (Taken 08/30/2025 114 by Carlos Lovell, RN) Trust Relationship/Rapport: care explained questions answered Problem: Fall Injury Risk Goal: Absence of Fall and Fall-Related Injury Outcome: Ongoing, Progressing Intervention: Identify and Manage Contributors Flowsheets Taken 08/30/2025 114 by Carlos Lovell, RN Self-Care Promotion: independence encouraged Taken 08/28/2025624 by Analy Salter Medication Review/Management: medications reviewed Intervention: Promote Injury-Free Environment Flowsheets (Taken 08/30/2025 1600 by Carlos Lovell, RN) Safety Promotion/Fall Prevention: activity supervised clutter-free environment maintained fall prevention program maintained lighting adjusted mobility aid in reach nonskid shoes/slippers when out of bed room organization consistent safety round/check completed assistive device/personal items within reach toileting scheduled Problem: Stroke, Intracerebral Hemorrhage Goal: Optimal Coping Outcome: Ongoing, Progressing Intervention: Support Psychosocial Response to Stroke Flowsheets (Taken 08/30/2025 114 by Carlos Lovell, RN) Supportive Measures: self-care encouraged active listening utilized Family/Support System Care: caregiver stress acknowledged presence promoted self-care encouraged Goal: Effective Bowel Elimination Outcome: Ongoing, Progressing Intervention: Promote Effective Bowel Elimination Flowsheets (Taken 08/30/2025 114 by Carlos Lovell, RN) Bowel Elimination Management: hygiene measures promoted Bowel Program: maintenance program followed Goal: Optimal Cerebral Tissue Perfusion Outcome: Ongoing, Progressing Intervention: Protect and Optimize Cerebral Perfusion Flowsheets Taken 08/30/2025 114 by Carlos Lovell RN Sensory Stimulation Regulation: care clustered Cerebral Perfusion Promotion: blood pressure monitored Taken 08/29/20252307 by Alyssa Shwa RN Stabilization Measures: legs elevated Taken 08/28/2025 0625 by Analy Salter Fluid/Electrolyte Management: electrolyte supplement adjusted Goal: Optimal Cognitive Function Outcome: Ongoing, Progressing Intervention: Optimize Cognitive Function Flowsheets (Taken 08/30/2025 114 by Carlos Lovell, RN) Sensory Stimulation Regulation: care clustered Reorientation Measures: clock in view Environment Familiarity/Consistency: daily routine followed Goal: Effective Communication Skills Outcome: Ongoing, Progressing Intervention: Optimize Communication Skills Flowsheets (Taken 08/30/2025 114 by Carlos Lovell, RN) Communication Enhancement Strategies: call light answered in person extra time allowed for response nonverbal strategies used Goal: Optimal Functional Ability Outcome: Ongoing, Progressing Intervention: Optimize Functional Ability Flowsheets Taken 08/30/20251946 by Alyssa Shaw RN Activity Management: activity adjusted per tolerance Taken 08/30/20251148 by Carlos Lovell, SEDA Self-Care Promotion: independence encouraged Taken 08/29/20252307 by Alyssa Shaw RN Adaptive Equipment Use: used independently Goal: Improved Oral Intake Outcome: Ongoing, Progressing Intervention: Promote and Optimize Fluid and Food Intake Flowsheets Taken 08/30/2025 114 by Carlos Lovell RN Nutrition Interventions: other (see comments) Taken 08/28/2025624 by Analy Salter Oral Nutrition Promotion: nutrition counseling provided Goal: Optimal Pain Control and Function Outcome: Ongoing, Progressing Intervention: Monitor and Manage Pain Flowsheets Taken 08/30/20252112 Pain Management Interventions: medication (see MAR) Taken 08/29/20252307 Complementary Therapy: (ice packs) other (see comments) Spiritual Activities Assistance: affirmation provided Goal: Effective Oxygenation and Ventilation Outcome: Ongoing, Progressing Intervention: Optimize Oxygenation and Ventilation Flowsheets Taken 08/30/20251946 by Alyssa Shaw, SEDA Head of Bed (HOB) Positioning: HOB elevated Taken 08/30/2025 1600 by Carlos Lovell RN Cough And Deep Breathing: done independently per patient Taken 08/30/2025 114 by Carlos Lovell RN Airway/Ventilation Management: pulmonary hygiene promoted Goal: Improved Sensorimotor Function Outcome: Ongoing, Progressing Intervention: Optimize Range of Motion, Motor Control and Function Flowsheets Taken 08/30/2025 1600 by Carlos Lovell RN Range of Motion: active ROM (range of motion) encouraged Taken 08/30/2025 1149 by Carlos Lovell RN Positioning/Transfer Devices: pillows Taken 08/29/20252307 by Alyssa Shaw RN Positioning: Shoulder: safety cues provided Spasticity Management: weight-bearing facilitated Intervention: Optimize Sensory and Perceptual Ability Flowsheets Taken 08/30/2025 114 by Carlos Lovell RN Pressure Reduction Techniques: frequent weight shift encouraged Pressure Reduction Devices: positioning supports utilized Taken 08/29/20252307 by Alyssa Shaw RN Sensation Impairment Protection: cues provided for safety Goal: Safe and Effective Swallow Outcome: Ongoing, Progressing Intervention: Optimize Eating and Swallowing Flowsheets Taken 08/30/2025 114 by Carlos Lovell RN Aspiration Precautions: NPO pending swallow screening/evaluation oral hygiene care promoted respiratory status monitored Feeding/Eating Techniques: oral mucosa moistened Taken 08/29/20252307 by Alyssa Shaw RN Swallowing Interventions: Dysphagia: other (see comments) Swallowing Method: other (see comments) Goal: Effective Urinary Elimination Outcome: Ongoing, Progressing Intervention: Promote Effective Bladder Elimination Flowsheets (Taken 08/30/2025 114 by Carlos Lovell RN) Urinary Elimination Promotion: absorbent pad/diaper use encouraged frequent voiding encouraged positioned for ease of voiding voiding relaxation promoted Problem: Skin Injury Risk Increased Goal: Skin Health and Integrity Outcome: Ongoing, Progressing Intervention: Optimize Skin Protection Flowsheets Taken 08/30/2025 194 by Alyssa Shaw RN Activity Management: activity adjusted per tolerance Head of Bed (HOB) Positioning: HOB elevated Taken 08/30/2025 114 by Carlos Lovell RN Pressure Reduction Techniques: frequent weight shift encouraged Pressure Reduction Devices: positioning supports utilized Taken 08/28/2025 0625 by Analy Salter Skin Protection: incontinence pads utilized Intervention: Promote and Optimize Oral Intake Flowsheets Taken 08/30/2025 1149 by Carlos Lovell RN Nutrition Interventions: other (see comments) Taken 08/28/2025 0625 by Analy Salter Oral Nutrition Promotion: nutrition counseling provided Problem: Infection Goal: Absence of Infection Signs and Symptoms Outcome: Ongoing, Progressing Intervention: Prevent or Manage Infection Flowsheets Taken 08/30/2025 1600 by Carlos Lovell RN Isolation Precautions: precautions maintained Taken 08/30/2025 1149 by Carlos Lovell RN Infection Management: aseptic technique maintained Fever Reduction/Comfort Measures: lightweight clothing lightweight bedding * Progress Notes - Gita Elaine MBBS - 08/30/2025 3:24 PM EDT Stroke ICU Progress Note Hospital Day: 3 Summary: 60 y.o. F w/ PMHx of Hypertension, C4-C5 spinal fusion anterior approach (08/26) presented with right-sided weakness and right-sided facial droop giving a baseline NIHSS of 13. CTH IPH in the posterior left frontal lobe w/ ass. SAH. CTA no vascular malformation Subjective: Patient seen this morning. Granddaughter at bedside. No concerns from nurse or granddaughter overnight. DSA results discussed with the family. ROS: Unable to review due to aphasia. Vitals: Visit Vitals BP 139/76 (BP Location: Left arm, Patient Position: Lying) Pulse 71 Temp 36.9 ??C (98.4 ??F) (Oral) Ht 1.727 m (5' 8 ) Wt 75 kg (165 lb 5.5 oz) SpO2 94% BMI 25.14 kg/m?? Physical Examination: Physical Exam GEN: lying in bed, NAD, has neck collar in place CV: Regular rate and rhythm, no LE edema PULM: airways patent, non labored breathing Gastrointestinal: No appreciable abdominal distention. No appreciable abdominal tenderness. Genitourinary: No Mendiola catheter present. No appreciable bladder distention. EXT: no clubbing, cyanosis, or erythema SKIN: no rashes or lesions Neurologic Exam: Mental Status: Alert, Speech: Moderate expressive aphasia CN: Pupil: equal, round, reactive to light and accommodation I - deferred II - VF: upper quadrantanopsia left III, IV, - EOMI, Nystagmus: none V - Facial sensation: Grossly intact to touch VII - Facial movements: Facial asymmetry noted right sided facial droop VIII - normal, Auditory acuity intact to conversation IX, X - Palate elevated normally, uvula midline XI - Movement and strength are normal for age XII - Tongue Midline and protrudes normally and Tongue movements are full and equal Motor: Bulk normal and tone normal RUE: 0/5 strength LUE: 4/5 strength, no drift RLE: 1/5 strength LLE: 4/5 strength, no drift No asterixis, tremor or myoclonus were noted. Sensory: intact light touch Reflexes: 3+ in RUE, LLE,LUE No ankle clonus. Coordination: finger to nose normal on left side Gait: deferred Meds: Current Medications[1] I/O: Intake/Output Summary (Last 24 hours) at 08/30/2025 1524 Last data filed at 08/30/2025 0800 Gross per 24 hour Intake 522 ml Output 800 ml Net -278 ml Labs: Labs in last 18 hours were personally reviewed and interpreted down trending WBCs. CBC WBC 9.77 Hb 13.1 Plt 345 Hct 38.7 ANC ?? INR ??, PTT ??, Anti-Xa ?? BMP Na 139 Cl 106 BUN 35 (H) Glu 143 (H) K 4.1 Co2 23 Cr 0.67 Ca 9.8 iCa ?? Mg 2.1, Phos 2.8 Lactate ?? LFT AST ?? AlkPhos ?? T Prot ?? ALK ?? Bili ?? Alb ?? D.Bili ?? Imaging: MRI Head independently reviewed notable for stable IVH, SAH and intraparenchymal hemorrhage. Reviewed reports and they are congruent with my interpretation and report mass effect upon the left lateral ventricle and mild rightward midline shift secondary to the left parietal acute hematoma. Assessment and Plan: # Intracerebral hemorrhage in Left posterior frontal region # Concern for underlying ischemic stroke secondary to Left MCA M4 occlusion - ICH score - 0 - Mechanism: Under investigation. likely ischemic stroke with hemorrhagic conversion - CT head: Intraparenchymal bleed in the posterior left frontal lobe with mild surrounding edema asdescribed above. Additional small volume subarachnoid hemorrhage in the left frontal lobe. No significant midline shift. - CTA H/N showed No evidence of vascular injury in the head or neck. - Was not on antiplatelet/anticoagulation - Reversal agents per pharmacy: not needed - PLT 312, INR 1.0, aPTT 28 - NSGY recommended no acute intervention - Bedside dysphagia screen failed - Underwent DSA today which showed Left MCA M4 branch occlusion with corresponding wedge defect. Noevidence of arteriovenous malformation or fistula. - MRI H: Few scattered foci of restricted diffusion in the cerebral hemispheres which could represent acute infarcts ; Redemonstration of the 4 cm hematoma in the left parietal lobe. Subarachnoid hemorrhage adjacent tothe hematoma. Redemonstration of intraventricular hemorrhage. mass effect upon the left lateral ventricle and mild rightward midline shift secondary to the left parietal acute hematoma. Plan: - BP control : Normal - PRN Labetalol and Hydralazine for SBP greater than 150 - Repeat CTH in 24hrs or as needed for worsening mental status or neuro exam - Na - Normo natremia. PRN hypertonic saline for worsening mental status - hold aspirin, Started plov - Echocardiogram pending - Telemetry Monitoring - NIHSS scale on admission and daily as per protocol(orderset placed) - PT/OT: Acute Rehab - PRINCIPAL GIFTS OFFICER: IDDSI Level 6- Soft & Bite Sized , MBS Ordered - Neuropsych screen at discharge - Counseled to stop estradiol for hot flashes. # Uncontrolled hypertension - Blood pressure goals as above - Required nicardipine infusion initially, now off of it. - Continue coreg 12.5mg BID #Leukocytosis Wbc 16->10, afebrile Multifactorial in setting of recent surgery and IPH Continue to follow labs and signs of infection #Hx of spinal fusion. -Patient had C4-C5 spinal fusion anterior approach at [facility] on 08/26/[address] Bedoya (Orthopedics department) -Currently has cervical collar in place. -Consulted [facility] who recommended to reach out to Dr. Bedoya about post op recs and keep cervical in place until then. -CT cervical spine report pending. -Per orthopedic, Cervical collar should be kept in , can be removed when eating, drinking and showering. Daughter says that was the same instruction she was given by Dr. Bedoya who performed the procedure. -Has follow up appointmet with Dr. Bedoya on 09/09/25. F: NPO; has DHT E: Replete PRN N: NPO; has DHT DVTppx: plov Staffed with Dr. Bakari COTE PGY-1, Neurology Epic Chat preferred [1] Current Facility-Administered Medications: acetaminophen (Tylenol) tablet 1,000 mg, 1,000 mg, Oral, q6h PRN OR acetaminophen (Tylenol) 160MG/5ML solution 1,000 mg, 1,000 mg, Nasogastric, q6h PRN, 1,000 mg at 08/30/25 1512 OR acetaminophen (Tylenol) suppository 650 mg, 650 mg, Rectal, q6h PRN, Mickey Torres MBBS carvedilol (Coreg) tablet 12.5 mg, 12.5 mg, Oral, BID, Bridgett Colindres APRN, DNP, 12.5 mg at 08/30/25 0906 enoxaparin (Lovenox) syringe 40 mg, 40 mg, Subcutaneous, Daily, Gita Elaine MBBS, 40 mg at 08/30/25 1050 hydrALAZINE (Apresoline) injection 10 mg, 10 mg, Intravenous, q1h PRN OR hydrALAZINE (Apresoline) injection 20 mg, 20 mg, Intravenous, q1h PRN, Mickey Torres MBBS, 20 mg at 08/29/25 0503 iohexol (OMNIPaque) 300 MG/ML injection 300 mL, 300 mL, Other, Once in imaging, Rylee Gupta MD labetalol (Normodyne,Trandate) injection 10 mg, 10 mg, Intravenous, q1h PRN OR labetalol (Normodyne,Trandate) injection 20 mg, 20 mg, Intravenous, q1h PRN, Mickey Torres MBBS levothyroxine (Synthroid, Levoxyl) tablet 100 mcg, 100 mcg, Nasogastric, q AM, Bridgett Colindres APRN, DNP, 100 mcg at 08/30/25 0545 mirtazapine (Remeron) tablet 30 mg, 30 mg, Nasogastric, Nightly, Gita Elaine MBBS mupirocin (Bactroban) 2 % ointment 1 Application, 1 Application, Each Nostril, BID, Bridgett Colindres, STUNT DRIVER, DNP, 1 Application at 08/30/25 0906 ondansetron (Zofran) injection 4 mg, 4 mg, Intravenous, q6h PRN, Claudia Morales G, STUNT DRIVER, 4 mg at 08/30/25 1512 polyethylene glycol (Miralax) packet 17 g, 17 g, Oral, BID, Claudia Morales G, STUNT DRIVER, 17 g at 08/30/25 0906 rosuvastatin (Crestor) tablet 40 mg, 40 mg, Nasogastric, Nightly, ColindresBridgett, STUNT DRIVER, DNP, 40 mg at 08/29/252005 senna-docusate (Elda-Colace) 8.6-50 MG per tablet 1 tablet, 1 tablet, Oral, BID, Claudia Morales G,STUNT DRIVER, 1 tablet at 08/30/25 09 Insert peripheral IV, , , Once AND Saline lock IV, , , Once AND sodium chloride 0.9 % flush10 mL, 10 mL, Intravenous, q12h, 10 mL at 08/30/25 1051 AND sodium chloride 0.9 % flush 10 mL, 10 mL, Intravenous, PRN, Mickey Torres MBBS venlafaxine (Effexor) tablet 75 mg, 75 mg, Nasogastric, BID, Gita Elaine MBBS, 75 mg at 08/30/25 1050 Cosigned by Dora Villegas MD at 08/31/2025 4:45 PM EDT Associated attestation - Dora Villegas MD - 08/31/2025 4:45 PM EDT I saw and evaluated the patient with the resident/fellow. I discussed the case with the resident/fellow and agree with the findings and plan as documented. * Progress Notes - Meredith Ferrell RN - 08/30/2025 3:17 PM EDT Message received from primary RN with questions for how to care for anterior neck incision, pt s/p anterior C-spine fusion surgery at [facility] on 08/26, photo from primary RN shows Silverlon dressing in place. Per rack carrier website this dressing can remain in place up to 7 days on a surgical incision. Order entered for nursing to remove dressing on 09/02. Please re-consult with concerns. * Progress Notes - Franklin Barker - 08/30/2025 2:33 PM EDT Physical Therapy Treatment Patient Name: Lyla Warren Today's Date: 08/30/2025 PT Discharge Recommendations: Acute rehab Equipment Recommended: Defer to facility Subjective Pt and daughter report that the pt has not been out of bed since leaving the ICU. Participants in Care Family/Caregiver Present: Yes Family/Caregiver: (two adult granddaughters) Mine Motor Operator: Not Applicable Presentation Oxygen Therapy: None (Room air) Lines and Tubes: Intravenous access, Telemetry, Dobhoff Pre-Session: Supine, Head of bed elevated, Lines intact, Bed alarm Post-Session: Sitting in chair, Chair alarm, Lines intact, RN notified, Call light in reach, SCDs applied Orthoses: C-Collar Precautions Medical Precautions: Spinal Spinal Precautions : C-collar at all times Medical Precautions: SBP < 150 Objective Pain Pt reports pain when PT was adjusting C-collar. No numerical value provided. PT adjusted C-collar for comfort and pt was positioned for comfort at the end of the session. Delirium Screening RASS: Alert and calm Confusion Assessment Method-ICU (CAM-ICU/PCAM-ICU) Feature 3: Altered Level of Consciousness: Negative Therapeutic Activity (15 minutes) Pt participated in bed mobility and transfers in an attempt to increase strength, upright activity balance/endurance, and coordination to improve functional mobility. Bed Mobility Bed Mobility Interventions: PT provided verbal and tactile cue to reach across midline with Rue, advance BLE off the L side of the bed, and use BUE to push herself up into midline sitting position. PT provided verbal cue to scoot closer to the edge of bed/chair with tactile cues to promote lateral weight shift in order to scoot contralateral hip forward. Bed Mobility Exam: Rolling/Turning (to the L) Level of [place]: Moderate assist (50% patient effort) Physical/Nonphysical Assist: Set-up required, Verbal Cues, Additional assist utilized for safety, Nonverbal cues (demo/gestures), Supervision Bed Mobility Exam: Scooting/Bridging Level of [place]: Moderate assist (50% patient's effort) Physical/Nonphysical Assist: Set-up required, Supervision, Verbal Cues, Additional assist utilized for safety, Nonverbal cues (demo/gestures) Bed Mobility Exam: Supine to Sit Level of [place]: Moderate assist (50% patient's effort) Physical/Nonphysical Assist: Set-up required, Supervision, Verbal Cues, Additional assist utilized for safety, Nonverbal cues (demo/gestures) Transfers Transfer Interventions: sit to stand: 1x from edge of bed, 1x from chair. PT provided verbal and tactile cue to get B feet under base of support with manual assist from PT to block knee of RLE to prevent buckling and maintain contact with the ground due to spasticity. Verbal and tactile cues for BUE placement on arm rest for push off and tactile cue under B axilla to promote anterior weight shift. Pt demonstrated poor eccentric control during stand to sit without reaching back with LUE for arm rest. For bed to chair, PT had to manually pivot RLE to the chair. Transfer Exam: Sit to stand Level of [place]: Moderate assist (50% patient's effort) Physical/Nonphysical Assist: Set-up required, Supervision, Verbal Cues, Additional assist utilized for safety, Nonverbal cues (demo/gestures) Assistive Device: Hand held assist Transfer Exam: Stand to Sit Level of [place]: Moderate assist (50% patient's effort) Physical/Nonphysical Assist: Set-up required, Supervision, Verbal Cues, Additional assist utilized for safety, Nonverbal cues (demo/gestures) Assistive Device: Hand held assist Transfer Exam: Bed to Chair/Chair to Bed Level of [place]: Moderate assist (50% patient's effort) Physical/Nonphysical Assist: Set-up required, Supervision, Verbal Cues, Additional assist utilized for safety, Nonverbal cues (demo/gestures) Type of Transfer: Stand-pivot Assistive Device: Hand held assist Neuromuscular Re-Education (14 minutes) Pt participated in sitting and standing balance exercise in an attempt to increase head/trunk postural control, midline awareness, and reactive balance to improve functional mobility. Balance Balance Interventions: Sitting: Pt participated in trunk control activities with PT providing tactile cue at upper trunk to maintain midline sitting balance, with PT taking cue away to allow pt to feel her posterior and lateral weight shift to the R, with verbal cue to regain midline sitting posture. PT provided verbal and tactile cue for pt to reach with LUE further laterally towards the bed rail in order to promote anterior and lateral weight shift to the L. Verbal cues to lean forward, sit up tall, and look out the window straight ahead to promote upright posture. Pt appears to not be aware of her posterior and lateral lean to the R. Standing: Pt demonstrated good upright posture with poor trunk control during static and dynamic standing with pt performing lateral weight shifts 12x each direction. PT provided tactile cues at pelvis to promote lateral weight shifts to promote increased weight bearing through RLE to hopefully reduce RLE extensor tone and blocking R knee to prevent buckling. Verbal cue to stand up tall and look straight ahead to promote upright posture. Pt would occasionally demonstrate trunk anterior flexion (2-3 times) with pt providing tactile and verbal cues at B shoulders for upright posture. Upon standing, pt demonstrated external rotation of RLE with narrow base of support, so PT manually adjusted RL E for a wider base of support and internal rotation of RLE to square B feet evenly. Postural Appearance Posture: Weight shift right of midline, Weight shift posterior to midline Static Sitting Balance Static Sitting-Balance Support: Left upper extremity support, Feet supported Static Sitting-Level of Assistance: Moderate assistance Dynamic Sitting Balance Dynamic Sitting-Balance Support: Feet supported, No upper extremity support Dynamic Sitting-Balance: Lateral weight shifts, Anterior/Posterior weight shifts, Reaching for objects Level of Assistance: Maximum assistance Static Standing Balance Static Standing-Balance Support: Left upper extremity support, Right upper extremity support Static Standing-Level of Assistance: Moderate assistance Dynamic Standing Balance Dynamic Standing-Balance Support: Right upper extremity support, Left upper extremity support Dynamic Standing-Balance: Lateral weight shifts, Anterior/Posterior weight shifts Dynamic Standing Level of Assistance: Maximum assistance Assessment Pt tolerated the session with no adverse effects. Pt progressed with dynamic standing and performedpre gait training lateral weight shifts during the session today. Pt's cervical collar was adjustedin supine prior to mobility due to loose appearance. Pt will continue to benefit from skilled physical therapy services in order to increase strength, coordination, upright activity tolerance/endurance, midline awareness, postural control, prevent contractures, decrease fall risk, reduce burden of care, and increase post stroke IND with ADLs and mobility. PT Recommendations Discharge Destination: Acute rehab Discharge Equipment: Defer to facility Plan Continue with PT POC. PT Goals PT GOAL DETAILS Goal Established Date Time Frame Goal Status PT Goal 1: Pt will perform supine<>sit with Autumn. 08/28/25 2 weeks PT Goal 2: Pt will perform sit to stands and bed to chair transfer with Autumn. 08/28/25 2 weeks PT Goal 3: Pt will perform dynamic sitting balance at edge of bed with CGA, > than 5 minutes with stable vital signs. 08/28/25 2 weeks PT Goal 4: Pt and pt's family will verbalize HEP and discharge recommendations prior to discharge from acute [facility]. 08/28/25 2 weeks Written by Franklin Barker on 08/30/25 at 2:43 PM. Cosigned by Colleen Florence at 08/30/2025 3:20 PM EDT Associated attestation - Colleen Florence - 08/30/2025 3:20 PM EDT I attest that I have consulted with and reviewed this document written by the physical therapy student and am in agreement with its contents * Progress Notes - Mariaa Carlisle - 08/30/2025 2:32 PM EDT OCCUPATIONAL THERAPY TREATMENT PATIENT DATA Patient Name Lyla Warren Session Date 08/30/2025 OT Discharge Recommendations Acute rehab Equipment Recommendations Defer to facility Transportation Recommendations Wheelchair van MOBILITY GUIDELINES Mobility Protocol: General - Mobility Guidelines Extremity Precautions: Extremity Precautions Extremity: RUE Mobility Restrictions (RUE): Other Other: Weight bearing up to 10 lbs. Type of Brace (RUE): None Other mobility precautions: No other precautions required PRECAUTIONS Medical Precautions Medical Precautions: Spinal Spinal Precautions : C-collar at all times Medical Precautions: SBP < 150 PRESENTATION Oxygen None (Room air) Telemetry Yes Lines and Tubes Female External Urinary Catheter 08/28/25 0230 (Active) Feeding Tube Gastric 10 Fr. Right nare (Active) Peripheral IV 08/27/25 Left;Posterior Hand (Active) Peripheral IV 08/27/25 Posterior;Right Hand (Active) Pre-Session Supine, Head of bed elevated, Lines intact, Bed alarm Post-Session Sitting in chair, Chair alarm, Lines intact, RN notified, Call light in reach, SCDs applied Bracing (if applicable) Orthoses: C-Collar SUBJECTIVE PARTICIPANTS IN CARE Patient/Caregiver Comments Pt agreeable to OT session, still demonstrates aphasia but able to verbalize some. Visitors Present Yes (two adult granddaughters) Mine Motor Operator (if applicable) OBJECTIVE PAIN No complaints of pain. DELIRIUM SCREENING RASS: Alert and calm Confusion Assessment Method-ICU (CAM-ICU/PCAM-ICU) Feature 3: Altered Level of Consciousness: Negative BED MOBILITY Level of [place] Physical/Non-physical Assist Adaptive Equipment Utilized Rolling/ Turning Moderate assist (50% patient effort) Set-up required, Verbal Cues, Additional assist utilized for safety, Nonverbal cues (demo/gestures), Supervision Scooting/ Bridging Moderate assist (50% patient's effort) Set-up required, Supervision, Verbal Cues, Additional assist utilized for safety, Nonverbal cues (demo/gestures) Supine to Sit Moderate assist (50% patient's effort) Set-up required, Supervision, Verbal Cues, Additional assist utilized for safety, Nonverbal cues (demo/gestures) Sit to Supine TRANSFERS Level of [place] Physical/Non- physical Assist Adaptive Equipment Utilized Sit to Stand Moderate assist (50% patient's effort) Set-up required, Supervision, Verbal Cues, Additional assist utilized for safety, Nonverbal cues (demo/gestures) Hand held assist Stand to sit Moderate assist (50% patient's effort) Set-up required, Supervision, Verbal Cues, Additional assist utilized for safety, Nonverbal cues (demo/gestures) Hand held assist Bed to Chair Moderate assist (50% patient's effort) Stand-pivot Set-up required, Supervision, Verbal Cues, Additional assist utilized for safety, Nonverbal cues (demo/gestures) Hand held assist Toilet Transfer Shower Transfer INTERVENTIONS SELF-CARE Treatment Minutes (if applicable) 29 Comments Level of [place] Adaptive Equipment Utilized Interventions Feeding Chair Level Per EMR, pt had passed with a diet post MBS, however MD had not yet placed dietorder. RN approved singular ice chips and this was reported to kyra. Grooming Dependent Edge of bed Pt required dep A to brush and place hair into bun while sitting EOB. RUE continues to be hemiplegic / hypotonic. Pt was able to wash face with LUE while seated in bedside chair with SBA/setup and utilize oral swab. Bathing Upper Body Dressing Dependent Bed level While bed level with HOB flat, c-collar dependently re-adjusted for better fit as it was too loose upon entry. Lower Body Dressing Sock Level of Assistance: Dependent Pt required dep A to don socks while bed level due to R hemiplegia and significantly increased extensor tone in RLE. Toileting Moderate assistance Pt completed simulated toilet transfer from bed to chair via stand pivot with mod A. [facility] Re-Entry ASSESSMENT Pt tolerated treatment session well without adverse effects, noted to have vital signs stable throughout. Pt continues to exhibit R sided hemiplegia with increased RLE extensor tone. Pt improved in transfers from max to mod A this date, as well as tolerated EOB and ADL activities. Pt is highly motivated and was independent prior. Pt would be unable to access a bathroom, unable to enter/exit a home and unable to manage their own medications correctly to prevent readmission. Pt requires assistance in all aspects of transfers, mobility and self-care tasks. In addition, pt is at a high risk of falls and would be unable to take care of self independently at this time. Pt is most appropriate for acute rehab at this time. Pt would be able to participate in 3 hours/day of therapy with good potential for progress in functional independence. OT RECOMMENDATIONS Discharge Destination Acute rehab Discharge Equipment Defer to facility PLAN Continue with OT POC, 2-5x/wk OT GOALS OT GOAL DETAILS Goal Established Date Time Frame Goal Status OT Goal 1: Pt will be CGA to stand pivot to [facility] to complete toileting, bilateral hand held assist 08/28/25 2 weeks OT Goal 2: Pt will be Autumn for sitting balance at EOB to complete singular grooming task 08/28/25 2 weeks OT Goal 3: Pt will be AOx4 2/2 sessions 08/28/25 2 weeks OT Goal 4: Pt will perform multistep commands with 50% accuracy 2/2 sessions to complete ADL task 08/28/25 2 weeks Written by Mariaa Carlisle on 08/30/25 at 2:40 PM. * Progress Notes - Luiz Torres, CCC-PRINCIPAL GIFTS OFFICER - 08/30/2025 12:54 PM EDT INITIAL MODIFIED BARIUM SWALLOW STUDY Patient Name: Lyla Warren Age: 60 y.o. Today's Date: 08/30/2025 Recommendations: IDDSI Level 6- Soft & Bite Sized with IDDSI Level 0-Thin Liquids by single spoon or cup sips only. NO STRAWS. NO CONSECUTIVE SIPS. ST will follow up for further eval/tx of dysphagia with plan for repeat MBS as indicated. History Medical History: Lyla Warren is a 60 y.o. female presenting with Acute L posterior frontal ICH+ small SAH (no shift, ICH score 0) after fall with right- sided numbness, s/p ACDF 08/26/25. Current diet: NPO diet Tube Feeding Tube feeding formula: Isosource 1.5; Route of feeding: Nasogastric; Tube feeding schedule: Continuous; Tube feeding continous initial Rate (ml/hr): 20; Advance by (ml): 10; Advance every(hr): 4; Tube feeding continuous goal rate (mL/... Subjective Pt was seen by ST for completion of a modified barium swallow study to assess swallow function and aspiration risk, in order to determine safety for PO nutrition. Pt was received alert and cooperative, without s/s or complaints of pain or distress. Pt was sitting upright in bed for the procedure. Objective Respiratory Status: room air Location of procedure: inpatient radiology, room 5 Oral phase -Lip closure: Interlabial escape with thin liquids x1 -Bolus Preparation/Mastication: Slow and prolonged with complete bolus recollection -Bolus Transport/Lingual Motion: Brisk -Oral Residue/Amount: Complete clearance Pharyngeal phase: -Swallow initiation: Impaired - BOT -Soft palate elevation: No bolus between soft palate/pharyngeal wall -Laryngeal elevation: Complete -Anterior hyoid excursion: Partial -Epiglottic inversion: Partial -Vestibule closure: Incomplete -Stripping wave: Present -BOT retraction: Incomplete - Pharyngeal residue amount: trace to mild - Pharyngeal residue location: Valleculae PENETRATION/ASPIRATION: Consistency & Method of Administration 1 2 3 4 5 6 7 8 Comments IDDSI Level 0-Thin Liquids by spoon and single cup sip [x] [] [] [] [] [] [] [] IDDSI Level 0-Thin Liquids by consecutive cup sip [] [x] [] [] [] [] [] [] 2 during IDDSI Level 2- Mildly Thick ([place]) by single spoon/cup sip [x] [] [] [] [] [] [] [] IDDSI Level 2- Mildly Thick ([place]) by straw [] [] [] [] [] [] [x] [] 7 during IDDSI Level 4- Puree/Pudding [x] [] [] [] [] [] [] [] IDDSI Level 7- Regular Diet [x] [] [] [] [] [] [] [] Description of Penetration/Aspiration Scale: 1. Material does not enter airway. 2. Material enters airway, remains above the vocal folds, and is ejected from the airway. 3. Material enters airway, remains above the vocal folds, and is not ejected from the airway. 4. Material enters airway, contacts the vocal folds, and is ejected from the airway. 5. Material enters airway, contacts the vocal folds, and is not ejected from the airway. 6. Material enters airway, passes below the vocal folds, and is ejected from trachea. 7. Material enters airway, passes below the vocal folds, and is not ejected from the trachea despite effort. 8. Material enters airway, passes below the vocal folds, and no effort is made to eject. (Kathya Salgado et al. A penetration-aspiration scale. Dysphagia. 1996;11(2):93-8.) Assessment Patient presents with mild oral phase and mild-moderate pharyngeal phase dysphagia. Oral phase is characterized by 1 episode of anterior labial escape of thin liquids by cup, as well as prolonged/inefficient mastication of regular solids. Pharyngeal phase dysphagia is characterized by impaired airway protection and impaired pharyngeal efficiency. Impaired airway protection is evidenced by PAS 7 aspiration of nectar with straw sip (large bolus) as well as transient penetration of thins during consecutive cup sips., 2/2 reduced A-P hyolaryngeal excursion, epiglottic inversion and incomplete laryngeal vestibule closure. Impaired pharyngeal efficiency is evidenced by mild vallecular residue following the swallow, 2/2 reduced BOT retraction, A-P hyolaryngeal excursion and incomplete epiglotticinversion. Given the results of this exam, diet modifications are warranted to reduce risk of dysphagia related pulmonary compromise. Prognosis: Good for improved function with skilled speech pathology services focusing on stated goals. Patient Education: All results and recommendations were reviewed with the pt, who expressed understanding and agreement. Results and recommendations of this evaluation were communicated to: RN/Team Plan / Recommendations Diet recommendations: DDSI Level 6- Soft & Bite Sized with IDDSI Level 0-Thin Liquids by singlespoon or cup sips only. NO STRAWS. NO CONSECUTIVE SIPS. Therapy Frequency: 3x week for 1 week F/u Imagin-7 days or as indicated Goals -tolerate least restrictive diet with no s/s of aspiration, while maintaining adequate nutritional intake -participate in repeat instrumental swallow assessment, as indicated -participate in exercise based dysphagia therapy targeting BOTR, HLEE, epiglottic inversion and LVC Andrea Torres M.S., CCC-PRINCIPAL GIFTS OFFICER Speech-Language Pathologist * Care Plan - Carlos Lovell RN - 08/30/2025 11:55 AM EDT Problem: Adult Inpatient Plan of Care Goal: Plan of Care Review Outcome: Ongoing, Progressing Flowsheets (Taken 08/30/2025 1149) Progress: no change Plan of Care Reviewed With: patient caregiver grandchild(gita) Goal: Patient-Specific Goal (Individualized) Outcome: Ongoing, Progressing Flowsheets (Taken 08/30/2025 0800) Patient/Family-Specific Goals (Include Timeframe): pt will remian free of aspiration through shift Individualized Care Needs: communication, safety, aspiration Anxieties, Fears or Concerns: none stated Goal: Absence of Hospital-Acquired Illness or Injury Outcome: Ongoing, Progressing Intervention: Identify and Manage Fall Risk Flowsheets (Taken 08/30/2025 08) Safety Promotion/Fall Prevention: activity supervised clutter-free environment maintained fall prevention program maintained lighting adjusted mobility aid in reach nonskid shoes/slippers when out of bed room organization consistent safety round/check completed assistive device/personal items within reach toileting scheduled Intervention: Prevent Skin Injury Flowsheets (Taken 08/30/2025 08) Body Position: weight shifting turned Intervention: Prevent and Manage VTE (Venous Thromboembolism) Risk Flowsheets (Taken 08/30/2025 08) VTE Prevention/Management: SCDs (sequential compression devices) on Intervention: Prevent Infection Flowsheets (Taken 08/30/2025 1149) Infection Prevention: hand hygiene promoted Goal: Optimal Comfort and Wellbeing Outcome: Ongoing, Progressing Intervention: Monitor Pain and Promote Comfort Flowsheets (Taken 08/30/2025 08) Pain Management Interventions: pillow support provided position adjusted rest relaxation techniques promoted Intervention: Provide Person-Centered Care Flowsheets (Taken 08/30/2025 1149) Trust Relationship/Rapport: care explained questions answered Problem: Fall Injury Risk Goal: Absence of Fall and Fall-Related Injury Outcome: Ongoing, Progressing Intervention: Identify and Manage Contributors Flowsheets (Taken 08/30/2025 1149) Self-Care Promotion: independence encouraged Intervention: Promote Injury-Free Environment Flowsheets (Taken 08/30/2025 08) Safety Promotion/Fall Prevention: activity supervised clutter-free environment maintained fall prevention program maintained lighting adjusted mobility aid in reach nonskid shoes/slippers when out of bed room organization consistent safety round/check completed assistive device/personal items within reach toileting scheduled Problem: Stroke, Intracerebral Hemorrhage Goal: Optimal Coping Outcome: Ongoing, Progressing Intervention: Support Psychosocial Response to Stroke Flowsheets (Taken 08/30/2025 1149) Supportive Measures: self-care encouraged active listening utilized Family/Support System Care: caregiver stress acknowledged presence promoted self-care encouraged Goal: Effective Bowel Elimination Outcome: Ongoing, Progressing Intervention: Promote Effective Bowel Elimination Flowsheets (Taken 08/30/2025 1149) Bowel Elimination Management: hygiene measures promoted Bowel Program: maintenance program followed Goal: Optimal Cerebral Tissue Perfusion Outcome: Ongoing, Progressing Intervention: Protect and Optimize Cerebral Perfusion Flowsheets (Taken 08/30/2025 1149) Sensory Stimulation Regulation: care clustered Cerebral Perfusion Promotion: blood pressure monitored Goal: Optimal Cognitive Function Outcome: Ongoing, Progressing Intervention: Optimize Cognitive Function Flowsheets (Taken 08/30/2025 1149) Sensory Stimulation Regulation: care clustered Reorientation Measures: clock in view Environment Familiarity/Consistency: daily routine followed Goal: Effective Communication Skills Outcome: Ongoing, Progressing Intervention: Optimize Communication Skills Flowsheets (Taken 08/30/2025 1149) Communication Enhancement Strategies: call light answered in person extra time allowed for response nonverbal strategies used Goal: Optimal Functional Ability Outcome: Ongoing, Progressing Intervention: Optimize Functional Ability Flowsheets (Taken 08/30/2025 1149) Self-Care Promotion: independence encouraged Goal: Improved Oral Intake Outcome: Ongoing, Progressing Intervention: Promote and Optimize Fluid and Food Intake Flowsheets (Taken 08/30/2025 114) Nutrition Interventions: other (see comments) Note: [facility] [place] study. Talking and using mouth muscles encouraged Goal: Optimal Pain Control and Function Outcome: Ongoing, Progressing Intervention: Monitor and Manage Pain Flowsheets (Taken 08/30/2025 0800) Pain Management Interventions: pillow support provided position adjusted rest relaxation techniques promoted Goal: Effective Oxygenation and Ventilation Outcome: Ongoing, Progressing Intervention: Optimize Oxygenation and Ventilation Flowsheets Taken 08/30/20251148 Airway/Ventilation Management: pulmonary hygiene promoted Cough And Deep Breathing: done with encouragement Taken 08/30/2025 08 Head of Bed (HOB) Positioning: HOB elevated Goal: Improved Sensorimotor Function Outcome: Ongoing, Progressing Intervention: Optimize Range of Motion, Motor Control and Function Flowsheets (Taken 08/30/2025 114) Range of Motion: ROM (range of motion) performed Positioning/Transfer Devices: pillows Intervention: Optimize Sensory and Perceptual Ability Flowsheets (Taken 08/30/2025 1149) Pressure Reduction Techniques: frequent weight shift encouraged Pressure Reduction Devices: positioning supports utilized Goal: Safe and Effective Swallow Outcome: Ongoing, Progressing Intervention: Optimize Eating and Swallowing Flowsheets (Taken 08/30/2025 114) Aspiration Precautions: NPO pending swallow screening/evaluation oral hygiene care promoted respiratory status monitored Feeding/Eating Techniques: oral mucosa moistened Goal: Effective Urinary Elimination Outcome: Ongoing, Progressing Intervention: Promote Effective Bladder Elimination Flowsheets (Taken 08/30/2025 114) Urinary Elimination Promotion: absorbent pad/diaper use encouraged frequent voiding encouraged positioned for ease of voiding voiding relaxation promoted Problem: Skin Injury Risk Increased Goal: Skin Health and Integrity Outcome: Ongoing, Progressing Intervention: Optimize Skin Protection Flowsheets Taken 08/30/2025 1149 Pressure Reduction Techniques: frequent weight shift encouraged Pressure Reduction Devices: positioning supports utilized Taken 08/30/2025 0800 Activity Management: activity adjusted per tolerance Head of Bed (HOB) Positioning: HOB elevated Intervention: Promote and Optimize Oral Intake Flowsheets (Taken 08/30/2025 1149) Nutrition Interventions: other (see comments) Note: Isosource 1.5 Problem: Infection Goal: Absence of Infection Signs and Symptoms Outcome: Ongoing, Progressing Intervention: Prevent or Manage Infection Flowsheets (Taken 08/30/2025 1149) Infection Management: aseptic technique maintained Fever Reduction/Comfort Measures: lightweight clothing lightweight bedding * Progress Notes - Yovani Hernandez RN - 08/30/2025 11:43 AM EDT Case Management Adult Initial Progress Note Lyla Warren 60 y.o. female CSN: [id number] Admission: 08/27/2025 8:46 PM Primary Problem: Acute intra-cranial hemorrhage (CMS/HCC) Grants Assistant reviewed chart and spoke with patient's grand daughter, Lindy Boyd, to complete this Initial Case Management Assessment. PCP: System, Provider Not In, Emergency Contact: Extended Emergency Contact Information Primary Emergency Contact: lurdes boyd Mobile Relation: Grandchild Preferred language: Burmese Mine Motor Operator needed? No Secondary Emergency Contact: Lindy Boyd Mobile Relation: Grandchild Preferred language: Burmese Mine Motor Operator needed? No Insurance: Primary Visit Coverage Payer Plan Sponsor Code Group Number Group Name [employer] MEDICARE HU[employer] MEDICARE [id number] Primary Visit Coverage Subscriber Subscriber ID Subscriber Name Subscriber SSN Subscriber Address [id number] LYLA WARREN [id number] [place] [address] Secondary Visit Coverage Payer Plan Sponsor Code Group Number Group Name MEDICAID-[facility] MEDICAID TRADITIONAL Secondary Visit Coverage Subscriber Subscriber ID Subscriber Name Subscriber SSN Subscriber Address [id number] Lyla Warren [id number] [place] [address] Patient information: Primary Caregiver: Self Support System: Immediate family Daily Living Activities: Functional Status: Independent Living Arrangements: Alone Type of Residence: Private residence [address] [place] [address] Current DME: Equipment Currently Used at Home: none Current DME Provider: [facility] Income Information: Income Source: Disabled Housing Circumstances-Z Codes: Housing Circumstances (select all that apply): Low Income (101-300% Federal Poverty Guidlines) - Z596 Patient Referred to: [facility] Anticipated Discharge Date: TBD Patient's Discharge Goal: Home Assistance Available at Discharge: Grand daughters Discharge Transport: Grand daughters Follow Up Transport: Grand Daughters Home Health / Home Infusion / Outpatient Dialysis Services: Current DME Provider: [facility] Living Will/Advance Directive/Power of Hadoop Engineer /Guardian: Advance Directive: Patient does not have advance directive Information Provided on Healthcare Directives: No Pre-existing DNR/DNI Order: No Patient Requests Assistance: No Additional Comments: Provided introduction and information on CM role. Confirmed demographics in medical record are accurate. Pt previously independent with ADLs and no DME, home O2, dialysis, HH or rehab reported. Pt recs for acute. Pt and family agreeable and facility preference is [facility]. Grand daughter stated that she and her sister can take turns staying with the patient to help care for her at dc. Grand daughter also stated she can provide transportation at time of dc. No CM needs expressed at this time. Will send referral and will continue to follow and coordinate dc as needed. CM will make additional referrals if needed and will continue to offer support to patient/family Yovani Hernandez RN * Progress Notes - Myke Ahumada MD - 08/30/2025 9:30 AM EDT Neurosurgery Consult Follow-up Note History, exam, and imaging review with attending and discussed on rounds this morning. Lyla Warren is a 60 y.o. female presenting with Acute L posterior frontal ICH + small SAH (no shift, ICH score 0) after fall with right-sided numbness, s/p spinal fusion. DSA today showed Left MCA M4 branch occlusion with corresponding wedge defect. No evidence of arteriovenous malformation orfistula. The etiology of hemorrhage is likely ischemic stroke with hemorrhagic conversion Interval: NAEO Exam: GCS (EMV): 464 Expressive aphasia Follows commands appropriately PERRL, EOMI R facial and R plegic AG in L No hematoma - No further neurosurgical intervention required - Rest of care per primary team - No further neurosurgical intervention required. Will sign off. - Thank you for allowing us to participate in the care of this patient. Please call with any questions or concerns. [phone] Myke Ahumada MD Resident Physician, PGY-2 Department of Neurosurgery [facility] Cosigned by Jw Ramirez MD at 08/30/2025 3:38 PM EDT Associated attestation - Jw Ramirez MD - 08/30/2025 3:38 PM EDT I saw and evaluated the patient with the resident/fellow. I discussed the case with the resident/fellow and agree with the findings and plan as documented. * Nursing Note - Prosper Arce - 08/30/2025 8:05 AM EDT Stroke Team Interdisciplinary Transition of Care [place] ([facility]) Patient: Lyla Celis Care Team: Patient Care Team: System, Provider Not In, as PCP - General (Family Medicine) Staff Present: Grants Assistant, Acupressure Therapist, Pharmacy, Speech Therapy, Physical/Occupational Therapy, Neurology Resident, Neuroscience Nurse Navigator, Organ Tuner Electronic, and Stroke Tea Tree Farmer Level of Care: Progressive Status: stable Acute Rec Pending MBS today Pending ECHO Prosper Arce 08/30/25 8:05 AM * Care Plan - Alyssa Shaw RN - 08/29/2025 11:11 PM EDT Problem: Adult Inpatient Plan of Care Goal: Plan of Care Review Outcome: Ongoing, Progressing Flowsheets Taken 08/29/20252307 by Alyssa Shaw, SEDA Progress: no change Taken 08/28/20252033 by Vale Milan Plan of Care Reviewed With: patient Goal: Patient-Specific Goal (Individualized) Outcome: Ongoing, Progressing Flowsheets (Taken 08/29/20252199) Patient/Family-Specific Goals (Include Timeframe): pt to remain free of falls Individualized Care Needs: safety Anxieties, Fears or Concerns: none Goal: Absence of Hospital-Acquired Illness or Injury Outcome: Ongoing, Progressing Intervention: Identify and Manage Fall Risk Flowsheets (Taken 08/29/2025 08 by Kika Ojeda) Safety Promotion/Fall Prevention: activity supervised Intervention: Prevent Skin Injury Flowsheets Taken 08/29/20252199 by Alyssa Shaw RN Body Position: turned Taken 08/28/2025624 by Analy Salter Skin Protection: incontinence pads utilized Intervention: Prevent and Manage VTE (Venous Thromboembolism) Risk Flowsheets (Taken 08/29/2025 1215 by Darshana Smith, RN) VTE Prevention/Management: bilateral SCDs (sequential compression devices) on Intervention: Prevent Infection Flowsheets (Taken 08/28/2025624 by Analy Salter) Infection Prevention: environmental surveillance performed equipment surfaces disinfected Goal: Optimal Comfort and Wellbeing Outcome: Ongoing, Progressing Intervention: Monitor Pain and Promote Comfort Flowsheets (Taken 08/29/2025 1848 by Myla Yanes, RN) Pain Management Interventions: medication (see MAR) Intervention: Provide Person-Centered Care Flowsheets (Taken 08/28/20252033 by Vale Milan) Trust Relationship/Rapport: care explained choices provided emotional support provided empathic listening provided questions answered thoughts/feelings acknowledged reassurance provided questions encouraged Problem: Fall Injury Risk Goal: Absence of Fall and Fall-Related Injury Outcome: Ongoing, Progressing Intervention: Identify and Manage Contributors Flowsheets (Taken 08/28/2025624 by Analy Salter) Medication Review/Management: medications reviewed Self-Care Promotion: independence encouraged Intervention: Promote Injury-Free Environment Flowsheets (Taken 08/29/2025 0800 by Kika Ojeda) Safety Promotion/Fall Prevention: activity supervised Problem: Stroke, Intracerebral Hemorrhage Goal: Optimal Coping Outcome: Ongoing, Progressing Intervention: Support Psychosocial Response to Stroke Flowsheets (Taken 08/28/20252033 by Vale Milan) Supportive Measures: active listening utilized decision-making supported positive reinforcement provided Family/Support System Care: caregiver stress acknowledged family care conference arranged involvement promoted presence promoted support provided self-care encouraged Goal: Effective Bowel Elimination Outcome: Ongoing, Progressing Intervention: Promote Effective Bowel Elimination Flowsheets Taken 08/29/20252307 by Alyssa Shaw RN Bowel Elimination Management: hygiene measures promoted Taken 08/28/2025624 by Analy Salter Bowel Program: maintenance program followed Goal: Optimal Cerebral Tissue Perfusion Outcome: Ongoing, Progressing Intervention: Protect and Optimize Cerebral Perfusion Flowsheets Taken 08/29/20252307 by Alyssa Shaw RN Stabilization Measures: legs elevated Taken 08/28/2025624 by Analy Salter Fluid/Electrolyte Management: electrolyte supplement adjusted Sensory Stimulation Regulation: auditory stimulation minimized Cerebral Perfusion Promotion: blood pressure monitored Goal: Optimal Cognitive Function Outcome: Ongoing, Progressing Intervention: Optimize Cognitive Function Flowsheets (Taken 08/28/2025624 by Analy Salter) Sensory Stimulation Regulation: auditory stimulation minimized Reorientation Measures: clock in view Environment Familiarity/Consistency: daily routine followed Goal: Effective Communication Skills Outcome: Ongoing, Progressing Intervention: Optimize Communication Skills Flowsheets (Taken 08/28/2025950 by Kika Ojeda) Communication Enhancement Strategies: call light answered in person extra time allowed for response Goal: Optimal Functional Ability Outcome: Ongoing, Progressing Intervention: Optimize Functional Ability Flowsheets Taken 08/29/20252307 by Alyssa Shaw RN Adaptive Equipment Use: used independently Taken 08/29/20252199 by Alysas Shaw RN Activity Management: activity adjusted per tolerance Taken 08/28/2025624 by Analy Salter Self-Care Promotion: independence encouraged Goal: Improved Oral Intake Outcome: Ongoing, Progressing Intervention: Promote and Optimize Fluid and Food Intake Flowsheets Taken 08/29/20252307 by Alyssa Shaw RN Nutrition Interventions: diet adjusted Taken 08/28/2025624 by Analy Salter Oral Nutrition Promotion: nutrition counseling provided Goal: Optimal Pain Control and Function Outcome: Ongoing, Progressing Intervention: Monitor and Manage Pain Flowsheets Taken 08/29/20252307 by Alyssa Shaw RN Complementary Therapy: (ice packs) other (see comments) Spiritual Activities Assistance: affirmation provided Sleep/Rest Enhancement: regular sleep/rest pattern promoted Taken 08/29/20251847 by Myla Yanes applications support analyst Interventions: medication (see MAR) Goal: Effective Oxygenation and Ventilation Outcome: Ongoing, Progressing Intervention: Optimize Oxygenation and Ventilation Flowsheets Taken 08/29/20252199 by Alyssa Shaw RN Head of Bed (HOB) Positioning: HOB elevated Taken 08/28/2025624 by Analy Salter Airway/Ventilation Management: calming measures promoted Cough And Deep Breathing: done with encouragement Goal: Improved Sensorimotor Function Outcome: Ongoing, Progressing Intervention: Optimize Range of Motion, Motor Control and Function Flowsheets Taken 08/29/20252307 by Alyssa Shaw RN Positioning: Shoulder: safety cues provided Spasticity Management: weight-bearing facilitated Taken 08/29/2025 1800 by Myla Yanes RN Range of Motion: active ROM (range of motion) encouraged Taken 08/28/2025624 by Analy Salter Positioning/Transfer Devices: pillows repositioning sheet Intervention: Optimize Sensory and Perceptual Ability Flowsheets Taken 08/29/20252307 by Alyssa Shaw RN Sensation Impairment Protection: cues provided for safety Taken 08/28/2025624 by Analy Salter Pressure Reduction Techniques: frequent weight shift encouraged Pressure Reduction Devices: positioning supports utilized Goal: Safe and Effective Swallow Outcome: Ongoing, Progressing Intervention: Optimize Eating and Swallowing Flowsheets Taken 08/29/20252307 by Alyssa Shaw RN Swallowing Interventions: Dysphagia: other (see comments) Swallowing Method: other (see comments) Feeding/Eating Techniques: rest periods provided Taken 08/28/2025624 by Analy Salter Aspiration Precautions: NPO pending swallow screening/evaluation Goal: Effective Urinary Elimination Outcome: Ongoing, Progressing Intervention: Promote Effective Bladder Elimination Flowsheets (Taken 08/28/2025624 by Analy Salter) Urinary Elimination Promotion: absorbent pad/diaper use encouraged toileting offered Problem: Skin Injury Risk Increased Goal: Skin Health and Integrity Outcome: Ongoing, Progressing Intervention: Optimize Skin Protection Flowsheets Taken 08/29/20252199 by Alyssa Shaw RN Activity Management: activity adjusted per tolerance Head of Bed (HOB) Positioning: HOB elevated Taken 08/28/2025624 by Analy Salter Pressure Reduction Techniques: frequent weight shift encouraged Pressure Reduction Devices: positioning supports utilized Skin Protection: incontinence pads utilized Intervention: Promote and Optimize Oral Intake Flowsheets Taken 08/29/20252307 by Alyssa Shaw RN Nutrition Interventions: diet adjusted Taken 08/28/2025624 by Analy Salter Oral Nutrition Promotion: nutrition counseling provided Problem: Infection Goal: Absence of Infection Signs and Symptoms Outcome: Ongoing, Progressing Intervention: Prevent or Manage Infection Flowsheets Taken 08/29/20252307 by Alyssa Shaw RN Infection Management: aseptic technique maintained Fever Reduction/Comfort Measures: cooling device applied Taken 08/29/2025 121 by Darshana Smith RN Isolation Precautions: protective * Anesthesia PACU Signout - Ananda Vivas MD - 08/29/2025 12:38 PM EDT Patient: Lyla Warren Anesthesia Type: general Vitals Value Taken Time BP 130/74 08/29/25 12:38 Temp 98.1 08/29/25 12:38 Pulse 74 08/29/25 12:15 Resp 14 08/29/25 12:38 SpO2 98% 08/29/25 12:38 Anesthesia PACU Signout Patient location during evaluation: PACU Patient participation: complete - patient participated Level of consciousness: baseline and awake Pain management: adequate (pain score 0-3) Airway patency: natural airway Hydration status: acceptable PONV: none Cardiovascular status: acceptable and hemodynamically stable Respiratory status: acceptable, spontaneous ventilation and nasal cannula Discharge Disposition: admit to inpatient unit Cosigned by Jonas Villeda MD at 08/30/2025 11:11 AM EDT Associated attestation - Jonas Villeda MD - 08/30/2025 11:11 AM EDT I saw and evaluated the patient with the resident/fellow. I discussed the case with the resident/fellow and agree with the findings and plan as documented. * Progress Notes - Thompson Miller MD - 08/29/2025 12:34 PM EDT Neurosurgery Consult Follow-up Note History, exam, and imaging review with attending and discussed on rounds this morning. Lyla Warren is a 60 y.o. female presenting with Acute L posterior frontal ICH + small SAH (no shift, ICH score 0) after fall with right-sided numbness, s/p spinal fusion. Interval: DSA today showed Left MCA M4 branch occlusion with corresponding wedge defect. No evidence of arteriovenous malformation or fistula. The etiology of hemorrhage is likely ischemic stroke with hemorrhagic conversion Exam: GCS (EMV): 464 Says name and simple sentences Expressive aphasia w/ word finding difficulties Follows commands appropriately PERRL, EOMI R facial droop R hemibody anaesthesia Moves LUE/LLE antigravity RUE/RLE plegic - Q1 Neurochecks - Na 145-150 - SBP 130-150 - MRI brain w and without contrast - Rest of care per primary team - Neurosurgery will continue to follow - Thank you for allowing us to participate in the care of this patient. Please call with any questions or concerns. [phone] Thompson Miller MD Resident Physician PGY-1 Department of Neurosurgery [facility] Cosigned by Jw Ramirez MD at 08/29/2025 1:16 PM EDT Associated attestation - Jw Ramirez MD - 08/29/2025 1:16 PM EDT I saw and evaluated the patient with the resident/fellow. I discussed the case with the resident/fellow and agree with the findings and plan as documented. * Significant Event - Claudia Morales APRN - 08/29/2025 12:34 PM EDT Pt had no acute events overnight, receiving PCU orders. No further ICU needs at this time, CCM willsign off. Thank you for allowing us to participate in the care of this patient. Please feel free toconsult us for any further needs. Claudia Morales APRN [phone] * Progress Notes - Lucia Dowell MBBS - 08/29/2025 12:18 PM EDT Stroke ICU Progress Note Hospital Day: 2 Summary: 60 y.o. F w/ PMHx of Hypertension, C4-C5 spinal fusion anterior approach (08/26) presented with right-sided weakness and right-sided facial droop giving a baseline NIHSS of 13. CTH IPH in the posterior left frontal lobe w/ ass. SAH. CTA no vascular malformation Subjective: No acute overnight events. Plan for DSA this morning. If able to tolerate the procedure well, plan to downgrade to PCU. ROS: Unable to review due to aphasia. Vitals: Visit Vitals BP 111/66 Pulse 72 Temp 36.7 ??C (98.1 ??F) Ht 1.727 m (5' 8 ) Wt 73.3 kg (161 lb 9.6 oz) SpO2 94% BMI 24.57 kg/m?? Physical Examination: Physical Exam GEN: lying in bed, NAD, has neck collar in place CV: Regular rate and rhythm, no LE edema PULM: airways patent, non labored breathing Gastrointestinal: No appreciable abdominal distention. No appreciable abdominal tenderness. Genitourinary: No Mendiola catheter present. No appreciable bladder distention. EXT: no clubbing, cyanosis, or erythema SKIN: no rashes or lesions Neurologic Exam: Mental Status: Alert, Speech: Moderate expressive aphasia CN: Pupil: equal, round, reactive to light and accommodation I - deferred II - VF: upper quadrantanopsia left III, IV, - EOMI, Nystagmus: none V - Facial sensation: Grossly intact to touch VII - Facial movements: Facial asymmetry noted right sided facial droop VIII - normal, Auditory acuity intact to conversation IX, X - Palate elevated normally, uvula midline XI - Movement and strength are normal for age XII - Tongue Midline and protrudes normally and Tongue movements are full and equal Motor: Bulk normal and tone normal RUE: 0/5 strength LUE: 4/5 strength, no drift RLE: 1/5 strength LLE: 4/5 strength, no drift No asterixis, tremor or myoclonus were noted. Sensory: intact light touch Reflexes: 2+ No ankle clonus. Coordination: finger to nose normal on left side Gait: deferred Meds: Current Medications[1] I/O: Intake/Output Summary (Last 24 hours) at 08/29/2025 1219 Last data filed at 08/29/2025 0400 Gross per 24 hour Intake 897.25 ml Output 700 ml Net 197.25 ml Labs: Labs in last 18 hours were personally reviewed and interpreted CBC WBC 10.61 (H) Hb 13.1 Plt 303 Hct 37.2 ANC ?? INR ??, PTT ??, Anti-Xa ?? BMP Na 139 Cl 106 BUN 24 (H) Glu 146 (H) K 3.5 (L) Co2 24 Cr 0.52 (L) Ca 8.9 iCa ?? Mg 2.1, Phos 2.2 (L) Lactate ?? LFT AST ?? AlkPhos ?? T Prot ?? ALK ?? Bili ?? Alb ?? D.Bili ?? Assessment and Plan: # Intracerebral hemorrhage in Left posterior frontal region # Concern for underlying ischemic stroke secondary to Left MCA M4 occlusion - ICH score - 0 - Mechanism: Under investigation. likely ischemic stroke with hemorrhagic conversion - CT head: Intraparenchymal bleed in the posterior left frontal lobe with mild surrounding edema asdescribed above. Additional small volume subarachnoid hemorrhage in the left frontal lobe. No significant midline shift. - CTA H/N showed No evidence of vascular injury in the head or neck. - Was not on antiplatelet/anticoagulation - Reversal agents per pharmacy: not needed - PLT 312, INR 1.0, aPTT 28 - NSGY recommended no acute intervention - Bedside dysphagia screen failed - Underwent DSA today which showed Left MCA M4 branch occlusion with corresponding wedge defect. Noevidence of arteriovenous malformation or fistula. Plan: - Downgrade to Stroke PCU - Strict BP control, SBP goal < 150 mmHg - PRN Labetalol and Hydralazine for SBP greater than 150 - Repeat CTH in 24hrs or as needed for worsening mental status or neuro exam - Na - Normo natremia. PRN hypertonic saline for worsening mental status - q2 neuro checks, vitals; HOB elevated at all times - hold aspirin, lovenox - Echocardiogram and MRI head with and without contrast ordered and pending. - Telemetry Monitoring - NIHSS scale on admission and daily as per protocol(orderset placed) - PT/OT/PRINCIPAL GIFTS OFFICER - Neuropsych screen at discharge # Uncontrolled hypertension - Blood pressure goals as above - Required nicardipine infusion initially, now off of it. - Continue coreg 12.5mg BID #Leukocytosis Wbc 16->10, afebrile Multifactorial in setting of recent surgery and IPH Continue to follow labs and signs of infection #Hx of spinal fusion. -Patient had C4-C5 spinal fusion anterior approach at [facility] on 08/26/[address] Bedoya (Orthopedics department) -Currently has cervical collar in place. -Consulted [facility] who recommended to reach out to Dr. Bedoya about post op recs and keep cervical in place until then. -CT cervical spine report pending. -Per orthopedic, Cervical collar should be kept in , can be removed when eating, drinking and showering. Daughter says that was the same instruction she was given by Dr. Bedoya who performed the procedure. -Has follow up appointmet with Dr. Bedoya on 09/09/25. F: NPO; has DHT E: Replete PRN N: NPO; has DHT DVTppx: Held due to bleed. Staffed with Dr. Gupta. ROCAEL Wilkins PGY-4, Neurology Epic Chat preferred [1] Current Facility-Administered Medications: acetaminophen (Tylenol) tablet 1,000 mg, 1,000 mg, Oral, q6h PRN OR acetaminophen (Tylenol) 160MG/5ML solution 1,000 mg, 1,000 mg, Nasogastric, q6h PRN, 1,000 mg at 08/29/25 0540 OR acetaminophen (Tylenol) suppository 650 mg, 650 mg, Rectal, q6h PRN, Mickey Torres, ROCAEL carvedilol (Coreg) tablet 12.5 mg, 12.5 mg, Oral, BID, Bridgett Colindres, STUNT DRIVER, DNP, 12.5 mg at 08/29/25 0902 hydrALAZINE (Apresoline) injection 10 mg, 10 mg, Intravenous, q1h PRN OR hydrALAZINE (Apresoline) injection 20 mg, 20 mg, Intravenous, q1h PRN, Mickey Torres MBBS, 20 mg at 08/29/25 0503 iohexol (OMNIPaque) 300 MG/ML injection 300 mL, 300 mL, Other, Once in imaging, Rylee Gupta MD labetalol (Normodyne,Trandate) injection 10 mg, 10 mg, Intravenous, q1h PRN OR labetalol (Normodyne,Trandate) injection 20 mg, 20 mg, Intravenous, q1h PRN, Mickey Torres MBBS levothyroxine (Synthroid, Levoxyl) tablet 100 mcg, 100 mcg, Nasogastric, q AM, Bridgett Colindres APRN,DNP, 100 mcg at 08/29/25 0500 mupirocin (Bactroban) 2 % ointment 1 Application, 1 Application, Each Nostril, BID, Bridgett Colindres APRN, DNP, 1 Application at 08/29/25 0902 ondansetron (Zofran) injection 4 mg, 4 mg, Intravenous, q6h PRN, Claudia Morales APRN polyethylene glycol (Miralax) packet 17 g, 17 g, Oral, BID, Claudia Morales, STUNT DRIVER, 17 g at 08/29/25 1027 potassium & sodium phosphates (Phos-NaK) 280-160-250 MG packet 1 packet, 1 packet, Oral, q8h, Bridgett Colindres APRN, DNP, 1 packet at 08/29/25 1027 rosuvastatin (Crestor) tablet 40 mg, 40 mg, Nasogastric, Nightly, Bridgett Colindres APRN, MARIANA, 40 mg at 08/28/25 2136 senna-docusate (Elda-Colace) 8.6-50 MG per tablet 1 tablet, 1 tablet, Oral, BID, Claudia Morales,STUNT DRIVER, 1 tablet at 08/29/25 0902 Insert peripheral IV, , , Once AND Saline lock IV, , , Once AND sodium chloride 0.9 % flush10 mL, 10 mL, Intravenous, q12h, 10 mL at 08/29/25 0007 AND sodium chloride 0.9 % flush 10 mL, 10 mL, Intravenous, PRN, Mickey Torres MBBS Facility-Administered Medications Ordered in Other Encounters: dexamethasone (Decadron) injection, , Intravenous, PRN, Poppel, Remi J, BUSINESS MAIL ENTRY CLERK, 4 mg at 08/29/25 1124 dexmedetomidine (Precedex) 100 MCG/ML concentrated solution, , Intravenous, PRN, Poppel, Remi J, BUSINESS MAIL ENTRY CLERK, 8 mcg at 08/29/25 1156 ePHEDrine Sulfate (Akovaz) injection, , Intravenous, PRN, Poppel, Remi J, BUSINESS MAIL ENTRY CLERK, 7.5 mg at 08/29/25 1141 fentaNYL (Sublimaze) injection, , Intravenous, PRN, Poppel, Remi J, BUSINESS MAIL ENTRY CLERK, 100 mcg at 08/29/25 1107 lactated Ringer's infusion, , Intravenous, Continuous PRN, Poppel, Remi J, BUSINESS MAIL ENTRY CLERK, New Bag at 08/29/25 1059 lidocaine PF (Xylocaine) 2 % injection, , Intravenous, PRN, Poppel, Remi J, BUSINESS MAIL ENTRY CLERK, 80 mg at 107 nitroglycerin (Tridil) in D5W IV solution 100 mcg/mL, , Intravenous, PRN, Poppel, Remi J, BUSINESS MAIL ENTRY CLERK, 100mcg at 08/29/25 1157 ondansetron (Zofran) injection, , Intravenous, PRN, Poppel, Remi J, BUSINESS MAIL ENTRY CLERK, 4 mg at 08/29/25 1124 phenylephrine in NS (Jace-Synephrine) 100 mcg/mL prefilled syringe, , Intravenous, PRN, Poppel, TonyJ, BUSINESS MAIL ENTRY CLERK, 300 mcg at 08/29/25 1147 propofol (Diprivan) injection, , Intravenous, PRN, Poppel, Remi J, BUSINESS MAIL ENTRY CLERK, 100 mg at 08/29/25 1107 rocuronium (ZeMuron) injection, , Intravenous, PRN, Poppel, Remi J, BUSINESS MAIL ENTRY CLERK, 50 mg at 08/29/25 1107 sugammadex (Bridion) 100 MG/ML injection, , Intravenous, PRN, Poppel, Remi Rasheed, BUSINESS MAIL ENTRY CLERK, 200 mg at 08/29/25 1155 Cosigned by Rylee Gupta MD at 09/07/2025 12:37 PM EST Associated attestation - Rylee Gupta MD - 09/07/2025 12:37 PM EST I saw and evaluated the patient with the resident/fellow. I discussed the case with the resident/fellow and agree with the findings and plan as documented. * Brief Op Note - Rylee Gupta MD - 08/29/2025 12:05 PM EDT Date: 08/29/25 Location: [facility] Name: Lyla Warren, : 1965, Diagnoses: Pre-op Diagnosis left frontoparietal IPH Post-op Diagnosis same Procedure(s): DSA Attending Surgeon(s): Jw Ramirez MD Granite Sandblaster Apprentice(s): Rylee Gupta MD Anesthesia: * No anesthesia type entered * ASA: IV Blood Administration: Blood Product Administration History None Estimated Blood Loss: None Drains: Female External Urinary Catheter 08/28/25 0230 (Active) Wall Suction (mmHg) 60 mmHg 08/29/25 0800 External Catheter Status In place 08/29/25 08 Securement Method Mesh panties 08/29/25 0800 Perineal Skin Assessment and Care Performed No redness;No breakdown 08/29/25 0800 Output (mL) 400 mL 08/29/25 0400 Specimen: Findings: Left MCA M4 branch occlusion with corresponding wedge defect. No evidence of arteriovenous malformation or fistula. The etiology of hemorrhage is likely ischemic stroke with hemorrhagic conversion Radial access, TR band Complications: None; patient tolerated the procedure well. Submitted by: Rylee Gupta MD - 08/29/2025 * Assessment & Plan Note - Claudia Morales APRN - 08/29/2025 12:04 PM EDT Associated Problem(s): Electrolyte disturbance Replace per ICU protocol * Assessment & Plan Note - Claudia Morales APRN - 08/29/2025 12:04 PM EDT Associated Problem(s): Feeding difficulty Tolerating TF via DHT PRINCIPAL GIFTS OFFICER following, MBS pending on 08/30 * Assessment & Plan Note - Claudia Morales APRN - 08/29/2025 12:04 PM EDT Associated Problem(s): Acute intra-cranial hemorrhage (CMS/HCC) 08/27: L frontal ICH w/ small SAH NS consulted --> DSA today with possible intervention SBP<150 Keep HOB elevated Hold all AP/AC/DVT ppx NIHSS and neuro examinations per ICU protocol Will continue ongoing stroke education PT/OT as appropriate * Assessment & Plan Note - Claudia Morales APRN - 08/29/2025 12:04 PM EDT Associated Problem(s): SAH (subarachnoid hemorrhage) 08/27: L frontal ICH w/ small SAH NS consulted --> DSA today with possible intervention SBP<150 Keep HOB elevated Hold all AP/AC/DVT ppx NIHSS and neuro examinations per ICU protocol Will continue ongoing stroke education PT/OT as appropriate * Assessment & Plan Note - Claudia Morales APRN - 08/29/2025 12:04 PM EDT Associated Problem(s): Cerebral edema (CMS/HCC) 08/27: L frontal ICH w/ small SAH NS consulted --> DSA today with possible intervention SBP<150 Keep HOB elevated Hold all AP/AC/DVT ppx NIHSS and neuro examinations per ICU protocol Will continue ongoing stroke education PT/OT as appropriate * Assessment & Plan Note - Claudia Morales APRN - 08/29/2025 12:04 PM EDT Associated Problem(s): HTN (hypertension) Goal SBP<150 PRN Hydralazine and Labetalol Cardene off since 08/28 @ 2200 Continue coreg 12.5mg BID * Assessment & Plan Note - Claudia Morales APRN - 08/29/2025 12:04 PM EDT Associated Problem(s): Leukocytosis (Resolved 09/09/2025) Wbc 10 from 16, afebrile Multifactorial in setting of recent surgery and IPH Continue to follow labs and signs of infection May require further investigation in the future * Progress Notes - Claudia Morales APRN - 08/29/2025 12:00 PM EDTAssociated Order(s): Critical Care Post-Procedure Diagnose(s): Acute intra-cranial hemorrhage (CMS/HCC) 08/29/25 [facility] Lyla Warren is a 60 y.o. female who presents with Acute intra-cranial hemorrhage (CMS/HCC) Past 24 hours: Overnight, patient's coreg was increased. Has been off cardene gtt since 2199. NPO for DSA with possible intervention today. MBS pending tomorrow. GCS 14 on RA. HDS. GCS: Hema Coma Scale Score: 14 NIH Stroke Scale: 14 Review of Systems Constitutional: Positive for fatigue. HENT: Negative for congestion. Respiratory: Negative for shortness of breath. Cardiovascular: Negative for chest pain. Gastrointestinal: Negative for abdominal pain. Musculoskeletal: Negative for back pain. Neurological: Negative for light-headedness and headaches. Psychiatric/Behavioral: Negative for agitation. All other systems reviewed and are negative. Vital signs: Vitals: 08/29/25 0800 BP: 111/66 Pulse: 72 Resp: 14 Temp: 36.7 ??C (98.1 ??F) SpO2: 94% Intake/Output Summary (Last 24 hours) at 08/29/2025 1203 Last data filed at 08/29/2025 0400 Gross per 24 hour Intake 897.25 ml Output 700 ml Net 197.25 ml Physical Exam Vitals and nursing note reviewed. HENT: Head: Atraumatic. Right Ear: External ear normal. Left Ear: External ear normal. Nose: Nose normal. Comments: DHT w/ TF Mouth/Throat: Mouth: Mucous membranes are moist. Pharynx: Oropharynx is clear. Eyes: Conjunctiva/sclera: Conjunctivae normal. Pupils: Pupils are equal, round, and reactive to light. Cardiovascular: Rate and Rhythm: Normal rate and regular rhythm. Pulses: Normal pulses. Heart sounds: Normal heart sounds. Pulmonary: Effort: Pulmonary effort is normal. Breath sounds: Normal breath sounds. Abdominal: General: Bowel sounds are normal. Palpations: Abdomen is soft. Musculoskeletal: General: Normal range of motion. Cervical back: Normal range of motion and neck supple. Skin: General: Skin is warm and dry. Capillary Refill: Capillary refill takes less than 2 seconds. Neurological: General: No focal deficit present. Mental Status: She is alert. She is disoriented. Psychiatric: Mood and Affect: Mood normal. Labs in last 18 hours: CBC WBC 10.61 (H) Hb 13.1 Plt 303 Hct 37.2 INR ??, PTT ??, Anti-Xa ?? BMP Na 139 Cl 106 BUN 24 (H) Glu 146 (H) K 3.5 (L) Co2 24 Cr 0.52 (L) Ca 8.9 iCa ?? Mg 2.1, Phos 2.2 (L) Lactate ?? LFT AST ?? AlkPhos ?? T Prot ?? ALK ?? Bili ?? Alb ?? D.Bili ?? Imaging as available: === 08/27/25 === XR CHEST 1 VIEW - Narrative - CLINICAL INDICATION: Assess for pulmonary edema TECHNIQUE: XR CHEST 1 VIEW COMPARISON: None. FINDINGS: Heart is normal in size. Mediastinal contours and pulmonary vasculature within normal limits. Mild bibasal atelectasis, left greater than right. No pneumothorax. Nodular opacity in the right upper lobe overlying the right first rib. - Impression - Mild bibasal atelectasis. Right upper lung nodular opacity is nonspecific and may reflect a protuberant osteophyte. Recommendfurther evaluation with noncontrast chest CT. CRITICAL RESULT: No. COMMUNICATION: Per this written report. Drafted by Julio Barrera MD on 08/28/2025 9:55 AM Final report signed by Julio Barrera MD on 08/28/2025 10:03 AM Reviewed and agree with above. Assessment and Plan: This patient is critically ill. Assessment & Plan Acute intra-cranial hemorrhage (CMS/HCC) Present on Admission: Yes SAH (subarachnoid hemorrhage) Present on Admission: Yes Cerebral edema (CMS/HCC) Present on Admission: Unknown 08/27: L frontal ICH w/ small SAH NS consulted --> DSA today with possible intervention SBP<150 Keep HOB elevated Hold all AP/AC/DVT ppx NIHSS and neuro examinations per ICU protocol Will continue ongoing stroke education PT/OT as appropriate HTN (hypertension) Present on Admission: Yes Goal SBP<150 PRN Hydralazine and Labetalol Cardene off since 08/28 @ 2200 Continue coreg 12.5mg BID Leukocytosis Present on Admission: Unknown Wbc 10 from 16, afebrile Multifactorial in setting of recent surgery and IPH Continue to follow labs and signs of infection May require further investigation in the future Electrolyte disturbance Present on Admission: Unknown Replace per ICU protocol Feeding difficulty Present on Admission: Unknown Tolerating TF via DHT PRINCIPAL GIFTS OFFICER following, MBS pending on 08/30 Feeding: NPO diet Tube Feeding Tube feeding formula: Isosource 1.5; Route of feeding: Nasogastric; Tube feeding schedule: Continuous; Tube feeding continous initial Rate (ml/hr): 20; Advance by (ml): 10; Advance every(hr): 4; Tube feeding continuous goal rate (mL/... Analgesia: Pain Score: 0 Pain Medications DULoxetine (Cymbalta) [address] capsule Take 1 capsule by mouth daily. Do not crush or chew. mirtazapine (Remeron) 30 MG tablet Take 1 tablet by mouth nightly. oxyCODONE-acetaminophen (Percocet) 5-325 MG tablet Take 1 tablet by mouth every 4 hours as needed. Sedation: RASS RASS: Drowsy Level of Consciousness: Alert Thromboembolic prophylaxis: Last Anticoag Admin No anticoagulants administered. No unadministered anticoagulant orders found. Head of bed: >30 Ulcer prophylaxis: none Glucose control: GLU: 146 mg/dL (08/29 0053) Spontaneous breathing trials: O2 Delivery Method: Endotracheal tube Insp Time (sec): 2 sec S RR: 10 Bowel regimen: Most Recent BM Date: (RECONCILIATION MANAGER) Invasive lines: Patient Lines/Drains/Airways Status Active Active LDAs Name Placement date Placement time Site Days Peripheral IV 08/27/25 Left;Posterior Hand 08/27/25 -- Hand 2 Peripheral IV 08/27/25 Posterior;Right Hand 08/27/252122 Hand 1 Female External Urinary Catheter 08/28/25 0230 08/28/25 0230 -- 1 Arterial Line 08/27/25 Left Radial 08/27/252148 Radial 1 Feeding Tube Gastric 10 Fr. Right nare 08/28/25 1105 Right nare 1 De-escalation: Continue routine ICU care Critical Care Performed by: Claudia Morales APRN Authorized by: Claudia Morales APRN Critical care provider statement: Critical care time (minutes): 38 Critical care time was exclusive of: Separately billable procedures and treating other patients Critical care was time spent personally by me on the following activities: Development of treatmentplan with patient or surrogate, ordering and performing treatments and interventions, discussions with consultants, ordering and review of laboratory studies, discussions with primary provider, ordering and review of radiographic studies, evaluation of patient's response to treatment, review of oldcharts, examination of patient and obtaining history from patient or surrogate Claudia Morales APRN * Clinician Note - Rylee Gupta MD - 08/29/2025 7:17 AM EDT To IR for diagnostic angiogram with possible intervention Rylee Gupta MD Neuro Endovascular Fellow * Care Plan - Vale Milan - 08/28/2025 8:36 PM EDT Problem: Adult Inpatient Plan of Care Goal: Plan of Care Review Outcome: Ongoing, Progressing Flowsheets (Taken 08/28/20252033) Progress: no change Outcome Evaluation: pain Plan of Care Reviewed With: patient Goal: Patient-Specific Goal (Individualized) Outcome: Ongoing, Progressing Flowsheets (Taken 08/28/20252033) Patient/Family-Specific Goals (Include Timeframe): Pt will remain free of injury and falls this shift Individualized Care Needs: SBP <140 Anxieties, Fears or Concerns: rehab and recovery Goal: Optimal Comfort and Wellbeing Outcome: Ongoing, Progressing Intervention: Provide Person-Centered Care Flowsheets (Taken 08/28/20252033) Trust Relationship/Rapport: care explained choices provided emotional support provided empathic listening provided questions answered thoughts/feelings acknowledged reassurance provided questions encouraged * Progress Notes - Jami Walter [facility] - 08/28/2025 2:51 PM EDT Stroke ICU Progress Note Hospital Day: 1 Summary: 60 y.o. F w/ PMHx of Hypertension, C4-C5 spinal fusion anterior approach (08/26) presented with right-sided weakness and right-sided facial droop giving a baseline NIHSS of 13. CTH IPH in the posterior left frontal lobe w/ ass. SAH. CTA no vascular malformation Subjective: No acute overnight events. This morning, ROS: Unable to review due to aphasia. Vitals: Visit Vitals BP (!) 149/74 Pulse 85 Temp 37.6 ??C (99.7 ??F) Ht 1.727 m (5' 8 ) Wt 73.3 kg (161 lb 9.6 oz) SpO2 94% BMI 24.57 kg/m?? Physical Examination: Physical Exam GEN: lying in bed, NAD, has neck collar in place CV: Regular rate and rhythm, no LE edema PULM: airways patent, non labored breathing Gastrointestinal: No appreciable abdominal distention. No appreciable abdominal tenderness. Genitourinary: No Mendiola catheter present. No appreciable bladder distention. EXT: no clubbing, cyanosis, or erythema SKIN: no rashes or lesions Neurologic Exam: Mental Status: Alert, Speech: Moderate expressive aphasia CN: Pupil: equal, round, reactive to light and accommodation I - deferred II - VF: upper quadrantanopsia left III, IV, - EOMI, Nystagmus: none V - Facial sensation: Grossly intact to touch VII - Facial movements: Facial asymmetry noted right sided facial droop VIII - normal, Auditory acuity intact to conversation IX, X - Palate elevated normally, uvula midline XI - Movement and strength are normal for age XII - Tongue Midline and protrudes normally and Tongue movements are full and equal Motor: Bulk normal and tone normal RUE: 0/5 strength LUE: 4/5 strength, no drift RLE: 1/5 strength LLE: 4/5 strength, no drift No asterixis, tremor or myoclonus were noted. Sensory: intact light touch Reflexes: 2+ No ankle clonus. Coordination: finger to nose normal on left side Gait: deferred Meds: Current Medications[1] I/O: Intake/Output Summary (Last 24 hours) at 08/28/2025 1452 Last data filed at 08/28/2025 1200 Gross per 24 hour Intake 502.71 ml Output 950 ml Net -447.29 ml Labs: Labs in last 18 hours were personally reviewed and interpreted CBC WBC 16.22 (H) Hb 14.5 Plt 312 Hct 40.8 ANC 13.43 (H) INR 1.0, PTT 28, Anti-Xa <0.11 BMP Na 136 Cl 102 BUN 15 Glu 175 (H) K 3.5 (L) Co2 21 (L) Cr 0.55 (L) Ca 9.2 iCa 4.5 (L) Mg 1.8 (L), Phos 2.1 (L) Lactate 1.0 LFT AST 46 (H) AlkPhos 97 T Prot 6.8 ALK 24 Bili 0.7 Alb ?? D.Bili ?? # Intracerebral hemorrhage - ICH score - 0 - Mechanism: Under investigation - CT head: Intraparenchymal bleed in the posterior left frontal lobe with mild surrounding edema asdescribed above. Additional small volume subarachnoid hemorrhage in the left frontal lobe. No significant midline shift. - CTA H/N showed No evidence of vascular injury in the head or neck. - Was not on antiplatelet/anticoagulation - Reversal agents per pharmacy: not needed - PLT 312, INR 1.0, aPTT 28 - NSGY recommended no acute intervention - Bedside dysphagia screen failed Plan: -For DSA tomorrow, 08/29 - Strict BP control, SBP goal < 150 mmHg - PRN Labetalol and Hydralazine for SBP greater than 150 - Repeat CTH in 24hrs or as needed for worsening mental status or neuro exam - Na - Normo natremia. PRN hypertonic saline for worsening mental status - q2 neuro checks, vitals; HOB elevated at all times - hold aspirin, lovenox - Echocardiogram deferred. Reorder if needed - MRI head with and without contrast - Stroke labs - Telemetry Monitoring - NIHSS scale on admission and daily as per protocol(orderset placed) - PT/OT/PRINCIPAL GIFTS OFFICER - Neuropsych screen at discharge # Uncontrolled hypertension - Blood pressure goals as above - Currently on nicardipine infusion #Hx of spinal fusion. -Patient had C4-C5 spinal fusion anterior approach at [facility] on 08/26/[address] Bedoya (Orthopedics department) -Currently has cervical collar in place. -Consulted [facility] who recommended to reach out to Dr. Bedoya about post op recs and keep cervical in place until then. -CT cervical spine report pending. -Per orthopedic, Cervical collar should be kept in , can be removed when eating, drinking and showering. Daughter says that was the same instruction she was given by Dr. Bedoya who performed the procedure. -Has follow up appointmet with Dr. Bedoya on 09/09/25. Jami Walter, [facility] Adult Neurology, PGY-4 [1] Current Facility-Administered Medications: acetaminophen (Tylenol) tablet 1,000 mg, 1,000 mg, Oral, q6h PRN OR acetaminophen (Tylenol) 160MG/5ML solution 1,000 mg, 1,000 mg, Nasogastric, q6h PRN OR acetaminophen (Tylenol) [id number] mg, 650 mg, Rectal, q6h PRN, Mickey Torres, MBBS carvedilol (Coreg) tablet 6.25 mg, 6.25 mg, Oral, BID, Claudia Morales, STUNT DRIVER, 6.25 mg at 08/28/517330 hydrALAZINE (Apresoline) injection 10 mg, 10 mg, Intravenous, q1h PRN OR hydrALAZINE (Apresoline) injection 20 mg, 20 mg, Intravenous, q1h PRN, Mickey Torres MBBS labetalol (Normodyne,Trandate) injection 10 mg, 10 mg, Intravenous, q1h PRN OR labetalol (Normodyne,Trandate) injection 20 mg, 20 mg, Intravenous, q1h PRN, Mickey Torres MBBS mupirocin (Bactroban) 2 % ointment 1 Application, 1 Application, Each Nostril, BID, Colindres, Bridgett R, STUNT DRIVER, DNP, 1 Application at 08/28/25 0800 niCARdipine (Cardene) infusion 40 mg in NS 200 mL (0.2 mg/mL) (premix), 0-15 mg/hr, Intravenous, Titrated, Musilli, Chasity K, DO, Last Rate: 50 mL/hr at 08/28/25 1308, 10 mg/hr at 08/28/25 1308 senna-docusate (Elda-Colace) 8.6-50 MG per tablet 1 tablet, 1 tablet, Oral, BID, Morales, Claudia G,STUNT DRIVER Insert peripheral IV, , , Once AND Saline lock IV, , , Once AND sodium chloride 0.9 % flush10 mL, 10 mL, Intravenous, q12h, 10 mL at 08/28/25 1215 AND sodium chloride 0.9 % flush 10 mL, 10 mL, Intravenous, PRN, Mickey Torres MBBS Cosigned by Rylee Gupta MD at 09/07/2025 12:37 PM EST Associated attestation - Rylee Gupta MD - 09/07/2025 12:37 PM EST I saw and evaluated the patient with the resident/fellow. I discussed the case with the resident/fellow and agree with the findings and plan as documented. * Progress Notes - Luiz Torres, MARTA-PRINCIPAL GIFTS OFFICER - 08/28/2025 2:22 PM EDT Speech Language Pathology Speech / Language / Communication and Clinical Swallow Initial Evaluation Patient Name: Lyla Warren Age: 60 y.o. Today's Date: 08/28/2025 Recommendations: Dysphagia: Pt demonstrates multiple risk factors for dysphagia/aspiration, as well as apparent clinical patterns of dysphagia/aspiration, which warrant further assessment via instrumentation. PendingMD approval/order, ST will plan for MBS to evaluate safety for PO diet. Speech/Language/Cognition: Pt demonstrates apparent speech/language deficits, which appear to be acute in nature. Areas of concern include both receptive/expressive skills including automatic speech,yes/no questions, following commands, confrontational and responsive naming and more. ST will follow up for further assessment and tx of receptive/expressive language deficits, with the goal of facilitating return towards baseline level of function. History/Background Information Lyla Warren is a 60 y.o. female presenting with Acute L posterior frontal ICH + small SAH (no shift, ICH score 0) after fall with right-sided numbness, s/p ACDF 08/26/25. Relevant Imaging: CT Chest 08/28- Central airways are patent. No bronchial wall thickening or bronchiectasis. No massor consolidation. Linear scarring in the left lung base. Upper lobe dominant centrilobular emphysema, right greater than left. No suspicious pulmonary nodules. CT Head 08/27- Intraparenchymal bleed in the posterior left frontal lobe with mild surrounding edema as described above. Additional small volume subarachnoid hemorrhage in the left frontal lobe. No significant midline shift. No evidence of vascular injury in the head or neck. Incidental note of soft tissue stranding and subcutaneous emphysema seen throughout the neck which may be postsurgical given patient's history of recent cervical spine fusion procedure. Problem List[1] Past Medical History[2] Surgical History[3] Current diet: NPO diet NPO diet NPO diet Subjective Lyla Warren was alert and cooperative. Identified by name and date of . RN provided verbal consent for evaluation. Objective Risk factors: s/p ACDF (08/26), s/p acute posterior frontal ICH + small SAH, right side numbness/weakness, right side facial asymmetry, dysphonia, clinical s/s of possible aspiration on clinical exam Current diet: NPO diet NPO diet NPO diet Respiratory Status: room air WBC: 16.22 Vitals: 08/28/ 1400 BP: Pulse: 85 Resp: 17 Temp: SpO2: 94% Direction Following: Follows 1 step directions Oral Mechanism Report: Dentition: edentulous Oral hygiene: Dry Focused Cranial Nerve Exam: Trigeminal Nerve (V): facial sensation impaired, mandible strength/ROM impaired, and hyolaryngeal elevation seemingly impaired Facial Nerve (VII): retraction asymmetry right, impaired protrusion right, and buccinator strength seemingly impaired Vagus (X): dysphonia Spinal Accessory (XI): Not assessed Hypoglossal Nerve (XII): deviation right, Laryngeal Function Exam: Secretion Management: adequate Vocal Quality: hoarse, breathy, and reduced intensity Cough: - Volitional weak - Reflexive weak Oral Feeding Trials: Positionin-90 degrees Feeding assistance: PRINCIPAL GIFTS OFFICER presented PO trials to patient Consistencies Administered: ice chips and thin liquid via teaspoon Oral Stage: anterior labial escape with thin liquid trials Pharyngeal Stage: weak cough following thin liquid trials by spoon 90 mL water test (Pb & Maddi, 2014): not tested this date COMMUNICATION: Informal assessment revealed the following: Receptive Language Not Impaired Impaired Not Assessed Comments Functional Object Use [x] [] [] Simple yes/no [x] [] [] Complex yes/no [] [x] [] Object Identification [x] [] [] 1-2 Step Command Following [] [x] [] Difficulty with 2 step Complex Command Following [] [] [x] Understands Simple Conversation [] [x] [] Understands Complex Conversation [] [] [x] Expressive Language Not Impaired Impaired Not Assessed Comments Nonverbal (gesture / facial expression) [x] [] [] Automatic speech [] [x] [] 1-7 with no errors, then skipped to 13, 15 Repetition [] [x] [] Open ended phrases [] [] [x] Responsive naming [] [x] [] Confrontation naming [] [x] [] Sentence formulation [] [x] [] Conversational speech [] [] [x] . Reading/Writing Not Impaired Impaired Not Assessed Comments Reading: [] numbers/letters [] word [] sentences [] paragraphs [] [] [x] Writing: [] number/letters [] word [] sentences [] paragraphs [] [] [x] Motor Speech Not impaired Impaired Not Assessed Comments Articulation [] [x] [] Reduced rate, loudness, precision Phonation [] [x] [] Respiration [x] [] [] Resonance [x] [] [] Prosody [] [x] [] Intelligibility in Conversation [] [x] [] 60-70% intelligibility at single word level Assessment Summary: Dysphagia: Pt demonstrates multiple risk factors for dysphagia/aspiration, as well as apparent clinical patterns of dysphagia/aspiration, which warrant further assessment via instrumentation. Pending MD approval/order, ST will plan for MBS to evaluate safety for PO diet. Speech/Language/Cognition: Pt demonstrates apparent speech/language deficits, which appear to be acute in nature. Areas of concern include both receptive/expressive skills including automatic speech,yes/no questions, following commands, confrontational and responsive naming and more. ST will follow up for further assessment and tx of receptive/expressive language deficits, with the goal of facilitating return towards baseline level of function. Prognosis: Good for improved function with skilled speech pathology services focusing on stated goals. Patient Education: All results and recommendations were reviewed with the pt, who expressed understanding and agreement. Results and recommendations of this evaluation were communicated to: RN/Team Plan / Recommendations Therapy Frequency: 3x week for 2 weeks F/u Imaging: MBS pending order Goals: Dysphagia: -participate in instrumental swallow assessment -return to and tolerate least restrictive diet with no s/s of aspiration, while maintaining adequate nutritional intake Speech/Language/Cognition: -complete orientation tasks to 100% with minimal cues -answer simple and complex yes/no questions to >85% accuracy with minimal cues -follow simple and complex commands >85% accuracy with minimal cues -complete confrontational naming tasks to > 85% with minimal cues Andrea Torres M.S., CCC-PRINCIPAL GIFTS OFFICER Speech-Language Pathologist [1] Patient Active Problem List Diagnosis ??? Acute intra-cranial hemorrhage (CMS/HCC) ??? HTN (hypertension) ??? SAH (subarachnoid hemorrhage) ??? Cerebral edema (CMS/HCC) ??? Leukocytosis ??? Hyperglycemia ??? Electrolyte disturbance ??? NSTEMI (non-ST elevated myocardial infarction) ??? Feeding difficulty [2] No past medical history on file. [3] No past surgical history on file. * Progress Notes - Wellington Marcellus German - 08/28/2025 1:33 PM EDT OCCUPATIONAL THERAPY EVALUATION PATIENT DATA Patient Name Lyla Warren Session Date 08/28/2025 OT Discharge Recommendations Acute rehab Equipment Recommendations Defer to facility HISTORY Lyla Warren is 60 y.o. female admitted 08/27/2025 for work-up of Acute intra-cranial hemorrhage (CMS/HCC). NIH Stroke Scale: 14 Hospital Course 1. Acute intra-cranial hemorrhage (CMS/HCC) Procedures (if applicable) Past Medical History Patient has no past medical history on file. Past Surgical History Patient has no past surgical history on file. MOBILITY GUIDELINES Mobility Protocol: Strict Bedrest HOB: 30 degrees Extremity Precautions: No Extremity Precautions Other mobility precautions: No other precautions required PRECAUTIONS Medical Precautions Medical Precautions: Spinal Spinal Precautions : C-collar at all times , No bending, lifting, twisting Medical Precautions: SBP < 150 SUBJECTIVE PARTICIPANTS IN CARE Patient/Caregiver Comments 'I'm thirsty' Visitors Present No PRESENTATION Oxygen None (Room air) Telemetry Yes Lines and Tubes Arterial Line 08/27/25 Left Radial (Active) Female External Urinary Catheter 08/28/25 0230 (Active) Feeding Tube Gastric 10 Fr. Right nare (Active) Peripheral IV 08/27/25 Left;Posterior Hand (Active) Peripheral IV 08/27/25 Posterior;Right Hand (Active) Pre-Session Supine, Head of bed elevated, Lines intact RN amenable to OOBTC Post-Session Sitting in chair, Chair alarm, Lines intact, RN notified, Call light in reach, SCDs applied All needs met Bracing (if applicable) Orthoses: C-Collar HOME LIVING/SET-UP Lives With Family, Adult Home Type Home Equipment Home Layout Bathroom Layout Additional Comments Limited information due to Pt dysarthria, no family present PRIOR LEVEL OF FUNCTION Receives help from Level of Mobility Mobility [place] History of Falls ADL Performance PATIENT/FAMILY GOALS Pt amenable to session OBJECTIVE PAIN Pt unable to quantity and localize, endorses increased pain with mobility DELIRIUM SCREENING RASS: Alert and calm Confusion Assessment Method-ICU (CAM-ICU/PCAM-ICU) Feature 3: Altered Level of Consciousness: Negative COGNITION Overall Cognitive Status Impaired Arousal/Alertness Appropriate responses to stimuli Mood/Behavior Alert Orientation Command Following Single Step Commands: Consistently, With increased time, With repetition, 100% ofthe time Multi-Step Commands: Unable to follow commands Method of Communication Verbal (dysarthria; intermittent aphasia) Additional Observations VISION Baseline Vision Current Vision (if different) PERCEPTION Inatttention/Neglect (if assessed) Initiation (if assessed) Motor Planning (if assessed) COORDINATION Gross Motor Fine Motor Coordination RIGHT UPPER EXTREMITY EXAMINATION Range of Motion Within Functional Limits (PROM) Manual Muscle Testing (grossly 0/5) Light Touch Sensation Intact Pain Sensation Muscle Tone LEFT UPPER EXTREMITY EXAMINATION Range of Motion Within Functional Limits Manual Muscle Testing Within functional limits Light Touch Sensation Intact Pain Sensation Muscle Tone RIGHT LOWER EXTREMITY EXAMINATION Range of Motion Within Functional Limits (PROM) Manual Muscle Testing (grossly 0/5, difficult to test due to extensor tone) Light Touch Sensation Pain Sensation Intact Muscle Tone LEFT LOWER EXTREMITY EXAMINATION Range of Motion Within Functional Limits Manual Muscle Testing Within functional limits Light Touch Sensation Intact Pain Sensation Muscle Tone INTERVENTIONS SELF-CARE Treatment Minutes (if applicable) 11 Level of [place] Interventions Grooming Maximum assistance Chair level Pt requiring increased skilled intervention via verbal/tactile/visual cues with physical assist for compensatory strategies to maintain seated balance at EOB prior to pivot transfer to recliner chair for therapeutic repositioning, Pt presenting with hard posterior/R lateral lean, OT providing cue for L lateral reach beyond base of support, physical assist for sequencing through transfer. Pt requiring dependent assist for all lower body dressing/toileting at bed level to maintain safety, dependent to re-fit cervical collar prior to OOBTC, repeated verbalcues for attention to tasks, dense R hemiplegia. Lower Body Dressing Sock Level of Assistance: Dependent Adult Briefs Level of Assistance: Dependent Toileting Dependent Bed level BED MOBILITY Level of [place] Physical/Non- physical Assist Rolling/ Turning Maximum assist (25% patient effort) (toward L, Autumn toward R) Set-up required, Verbal Cues,Additional assist utilized for safety Scooting/ Bridging Moderate assist (50% patient's effort) Set-up required, Verbal Cues, Additional assist utilized for safety Supine to Sit Moderate assist (50% patient's effort) Set-up required, Verbal Cues, Additional assist utilized for safety TRANSFERS Level of [place] Physical/Non- physical Assist Adaptive Equipment Utilized Sit to Stand Maximum assist (25% patient's effort) Set-up required, Verbal Cues, Additional assist utilized for safety, 1 person + 1 person to manage equipment Hand held assist Stand to sit Maximum assist (25% patient's effort) Set-up required, Verbal Cues, Additional assist utilized for safety, 1 person + 1 person to manage equipment Hand held assist Bed to Chair Maximum assist (25% patient's effort) Stand-pivot Set-up required, Verbal Cues, Additional assist utilized for safety, 1 person + 1 person to manage equipment Hand held assist BALANCE Level of [place] Balance Support Interventions Static Sit Maximum assistance Left upper extremity support, Feet supported Dynamic Sit Dependent Left upper extremity support, Feet supported Dynamic Sitting-Balance: Lateralweight shifts, Anterior/Posterior weight shifts, Reaching for objects Static Stand Maximum assistance Dynamic Stand Maximum assistance STANDARDIZED ASSESSMENTS [facility] 6-Click Daily Activities Help from Other: Don/Doff Regular Lower Body Clothings: Total Help From Other: Bathing: Total Help From Other: Toileting: Total Help From Other: Don/Doff Upper Body Clothings: A lot Help From Other: Grooming: A lot Help From Other: Eating Meals: A lot [facility] 6 Click - Daily Activities Score: 9 Pre-Stroke MRS Pre-Stroke Modified Chelle Scale : Unable to determine (UTD) from the medical record documentation. ASSESSMENT OT FINDINGS Pt presenting with Impaired ADL performance, Impaired IADL performance, Impaired cognition, Impaired executive function, Impaired postural/trunk control, Impaired fine motor control/coordination, Impaired attention, Impaired balance, Impaired functional mobility, Decreased endurance/ventilation/gasexchange, Decreased upper extremity strength, Impaired judgment during ADL. Overall, Pt demonstrates significant occupational/functional limitation this session with fair activity tolerance, reporting and/or demonstrating RUE/RLE hemiplegia, cognitive deficitis throughout intervention. Pt requires increased verbal cues, tactile cues, visual cues, time, and physical assistance to complete simple self care tasks, functional transfers, and ADLs. Pt would benefit from skilled OT intervention to address progress towards improved activity tolerance, executive functioning, cognitive skills, and safety for increased safety and independence across occupational performance. Pt would be appropriate for dc to acute inpatient rehab. Evaluation/ Treatment Tolerance (if identified) Other (Comment) (cognition) Rehab Potential (if identified) Good, to achieve stated therapy goals Barriers to Discharge (if identified) EVAL COMPLEXITY Occupational Profile Expanded review of medical/therapy records and additional review of physical, cognitive, or psychosocial history Performance Deficits Activities of daily living (ADLs), Body functions, Physical, Personal, Body structures, Instrumental activities of daily living (IADLs), Motor skills, Habits, Routines, Leisure, Roles Clinical Decision Making Moderate Overall Eval Complexity Moderate OT RECOMMENDATIONS Discharge Destination Acute rehab Discharge Equipment Defer to facility Recommendations for Referral to Another Service (if applicable) PLAN Planned OT Interventions ADL retraining, IADL retraining, Balance training, ROM, Strengthening, Bed mobility Training, Transfer training, Neuromuscular re-education OT Frequency 2 - 5 times per week OT Duration 2 weeks OT GOALS OT GOAL DETAILS Time Frame OT Goal 1: Pt will be CGA to stand pivot to BSC to complete toileting, bilateral hand held assist 2weeks OT Goal 2: Pt will be Autumn for sitting balance at EOB to complete singular grooming task 2 weeks OT Goal 3: Pt will be AOx4 2/2 sessions 2 weeks OT Goal 4: Pt will perform multistep commands with 50% accuracy 2/2 sessions to complete ADL task 2weeks Written by Marcellus Paris on 08/28/25 at 2:26 PM. * Progress Notes - Ciara Elias - 08/28/2025 1:32 PM EDT Physical Therapy Evaluation Patient Name: Lyla Warren Today's Date: 08/28/2025 PT Discharge Recommendations: Acute rehab Equipment Recommended: Defer to facility History Lyla Warren is 60 y.o. female admitted 08/27/2025 for work-up of Acute intra-cranial hemorrhage (CMS/HCC). Hospital Course 1. Acute intra-cranial hemorrhage (CMS/HCC) Procedures Past Medical History Patient has no past medical history on file. Past Surgical History Patient has no past surgical history on file. Precautions Medical Precautions: Spinal Spinal Precautions : C-collar at all times Medical Precautions: SBP < 150 Subjective RN agreeable to OOB to chair. No family present. Pt asking for water. Pt NPO at this time, pending swallow study Participants in Care Family/Caregiver Present: No Mine Motor Operator: Not Applicable Presentation Oxygen Therapy: None (Room air) Lines and Tubes: Intravenous access, Telemetry, Art Line, [place] Pre-Session: Supine, Head of bed elevated, Lines intact, Bed alarm Pre-Session Comments: RN amenable to OOBTC Post-Session: Sitting in chair, Chair alarm, Lines intact, RN notified, Call light in reach, SCDs applied Post-Session Comments: All needs met Orthoses: C-Collar Home Living/Set-Up Lives With: Family, Adult Home Living Comments: Limited information due to pt's aphasia, no family present to confirm prior level of function and home setup. Prior Level of Function To return home Patient/Family Goals to return home when able Objective Pain Pt reports pain but unable to rate or localize pain at this time due to impaired cognition. RN aware. Delirium Screening RASS: Alert and calm Confusion Assessment Method-ICU (CAM-ICU/PCAM-ICU) Feature 3: Altered Level of Consciousness: Negative Cognition Overall Cognitive Status: Impaired Arousal/Alertness: Appropriate responses to stimuli Mood/Behavior: Alert, Confused, Distractible Orientation Level: Disoriented X4 Single Step Commands: Consistently, With increased time, With repetition, 100% of the time Multi-Step Commands: Unable to follow commands Method of Communication: Global Aphasia, Verbal Right Upper Extremity Examination RUE Assessment: Within Functional Limits (PROM) Manual Muscle Testing - RUE: (0/5 throughout) Light Touch: Right Upper Extremity: Intact Pain Response: RUE: Intact Left Upper Extremity Examination LUE Assessment: Within Functional Limits Manual Muscle Testing - LUE: Within functional limits Light Touch: Left Upper Extremity: Intact Right Lower Extremity Examination RLE Assessment: Within Functional Limits (PROM) Manual Muscle Testing - RLE: (0/5 throughout) RLE Tone: Hypertonic (global extensor tone in bed, flexor tone with initial weight bearing/sit to stand) Pain Response: RLE: Intact Left Lower Extremity Examination LLE Assessment: Within Functional Limits Manual Muscle Testing: Within functional limits Light Touch: Left Lower Extremity: Intact Bed Mobility Bed Mobility Exam: Rolling/Turning Level of [place]: Maximum assist (25% patient effort) Physical/Nonphysical Assist: Set-up required, Verbal Cues, Additional assist utilized for safety, Nonverbal cues (demo/gestures) Bed Mobility Exam: Scooting/Bridging Level of [place]: Moderate assist (50% patient's effort) Physical/Nonphysical Assist: Set-up required, Verbal Cues, Additional assist utilized for safety, Nonverbal cues (demo/gestures) Bed Mobility Exam: Supine to Sit Level of [place]: Moderate assist (50% patient's effort) Physical/Nonphysical Assist: Set-up required, Verbal Cues, Additional assist utilized for safety, Nonverbal cues (demo/gestures) Pt with bladder incontinence at initiation of session requiring brief change prior to OOB mobility.Pt rolled R and L with maxA for brief placement and hygiene. Transfers Transfer Exam: Sit to stand Level of [place]: Maximum assist (25% patient's effort) Physical/Nonphysical Assist: Additional assist utilized for safety, Verbal Cues, Nonverbal cues (demo/gestures) Transfer Exam: Stand to Sit Level of [place]: Maximum assist (25% patient's effort) Physical/Nonphysical Assist: Verbal Cues, Nonverbal cues (demo/gestures), Additional assist utilized for safety Transfer Exam: Bed to Chair/Chair to Bed Level of [place]: Maximum assist (25% patient's effort) Physical/Nonphysical Assist: Verbal Cues, Nonverbal cues (demo/gestures), Additional assist utilized for safety Type of Transfer: Squat-pivot Ambulation Pt unable to ambulate at this time. Balance Static Sitting Balance Static Sitting-Level of Assistance: Maximum assistance Stating Sitting - Interventions: R posterior lateral trunk lean Dynamic Sitting Balance Level of Assistance: Dependent Static Standing Balance Static Standing-Level of Assistance: Maximum assistance Dynamic Standing Balance Participation in Functional Tasks: Maximum assistance Therapeutic Activity (13 minutes) Vital signs monitored throughout session, WNL. RN aware. Standardized Assessments Standardized Assessments Standardized Assessments: [facility] 6-Clicks Mobility Assessment [facility] 6-Clicks Mobility Assessment Difficulty patient has turning over in bed (including adjusting bedclothes, sheets, and blankets)?:A lot Difficulty patient has sitting down on and standing up from a chair with arms (wheelchair, bedside commode, etc.)?: A lot Difficulty patient has moving from lying on back to sitting on the side of the bed?: A lot How much help does the patient need moving to and from a bed to a chair (including a wheelchair)?: A lot How much help does the patient need to walk in hospital room?: Unable How much help does the patient need climbing 3-5 steps with a railing?: Unable [facility] 6-Clicks Mobility Assessment Total : 10 Assessment Pt participated in PT evaluation this date with emphasis on OOB mobility and safety at time of discharge. Pt globally aphasic with difficulty answering prior level of function questions. Pt with RUE and RLE spastic hemiplegia; RLE with significant extensor tone with bed mobility activities. Pt requires 2 person assist/maxA x2 to pivot from bed to chair at this time. Due to pt's cognitive, ADL, and mobility deficits, PT recommends discharge to acute rehab when medically appropriate. PT will continue to follow. Impairments: Decreased endurance, ventilation, and/or gas exchange, Impaired gait dynamics/performance, Impaired postural/trunk control, Decreased strength, Decreased range of motion, Impaired locomotion, Impaired attention/alertness, Impaired cognition/safety awareness, Impaired balance, Impaired functional mobility/transfers, Impaired executive functioning, Impaired muscle tone, Impaired motor planning, Impaired sensation/sensory processing, Impaired motor cordination/control, Pain Activity Limitations: Inability to sit independently, Inability to complete ADLs independently, Inability to ambulate community distances, Inability to ambulate independently, Inability to transfer independently, Inability to ambulate household distances, Impaired attention/alertness Participation Restrictions: Self-care, Home management, Community leisure Activity Tolerance: Standing Diagnosis: ICH, recent cervical surgery Rehab Potential: Good, to achieve stated therapy goals Eval Complexity History Profile: 3 or more personal factors and/or comorbidities Clinical Presentation: Unstable and unpredictable characteristics Clinical Decision Making: High complexity PT Recommendations Discharge Destination: Acute rehab Discharge Equipment: Defer to facility Plan Planned PT Interventions Balance training, Bed mobility training, Gait training, Motor coordination training, Transfer training, Manual therapy techniques, Postural re-education, Neuromuscular re-education, ROM, Strengthening, Stretching, Caregiver training, Functional Mobility PT Frequency 2 - 5 times per week PT Duration 2 weeks Goals PT GOAL DETAILS Time Frame PT Goal 1: Pt will perform supine<>sit with Autumn. 2 weeks PT Goal 2: Pt will perform sit to stands and bed to chair transfer with Autumn. 2 weeks PT Goal 3: Pt will perform dynamic sitting balance at edge of bed with CGA, > than 5 minutes with stable vital signs. 2 weeks PT Goal 4: Pt and pt's family will verbalize HEP and discharge recommendations prior to discharge from acute care hospital. 2 weeks Written by Ciara Elias on 08/28/25 at 2:54 PM. * Consults - Carley Deras - 08/28/2025 12:43 PM EDTAssociated Order(s): IP CONSULT TO NUTRITION SERVICES Adult Nutrition Evaluation Note Lyla Warren 60 y.o. female CSN: [id number] Room/Bed 242/242A Nutrition evaluation type: assessment Reason for evaluation: provider consult Hospital course: 60 y/o F presenting with Acute L posterior frontal ICH + small SAH (no shift, ICH score 0) after fall with right-sided numbness, s/p spinal fusion. Past medical/ surgical history: Past Medical History[1] Surgical History[2] Social history: Additional comments: Vitals and Basic Assessment: BP: (!) 149/74 Temp: 36.9 ??C (98.5 ??F) Oxygen Therapy: None (Room air) [place] Coma Scale Score: 14 [place] Pressure Risk Score: 36 Allergies: Allergies[3] Medications: Current Scheduled Medications[4] Meds were reviewed: Yes Labs: Lab Results Component Value Date GLUCOSE 175 (H) 08/28/2025 CALCIUM 9.2 08/28/2025 NA 136 08/28/2025 K 3.5 (L) 08/28/2025 CO2 21 (L) 08/28/2025 CL 102 08/28/2025 BUN 15 08/28/2025 CREATININE 0.55 (L) 08/28/2025 PHOS 2.1 (L) 08/28/2025 MG 1.8 (L) 08/28/2025 Anthropometrics: Height: 172.7 cm (5' 8 ) Weight: 73.3 kg (161 lb 9.6 oz) BMI (Calculated): 24.58 Weight Evaluation: Normal (BMI 18.5-24.9) [place] Body Weight (kg): 63.6 Percent [place] Body Weight: 115 Estimated Needs: Kcal/ K-30 Kcal Provided: 6332-7179 Kcal Needs Based On: Current weight Gm Protein/ Kg : 1+ Protein Provided: 73+ Protein Needs Based On: Current weight ML/ Kg: Per team or 1 mL/kcal Metabolic Cart Study Results: Current Nutrition Intake: Diet Supplements: None Diet Order: NPO Diet Experience and Nutrition History: Diet Education Provided: Will monitor Pertinent home medications: [place] needs: Nutrition Focused Physical Exam: Unable to Complete Exam: Weekend coverage Physical exam performed on (date): Assessment of Malnutrition: Malnutrition Identified: Additional Information Needed Nutrition Problem: Inadequate oral intake related to stroke alert as evidenced by NPO. Status of Nutrition Diagnosis: New Nutrition Interventions and Recommendations: PO per PRINCIPAL GIFTS OFFICER Recommend close monitoring and replacement of elytes TF recs if warranted: Isosource 1.5 @ goal rate 60 ml/hr (1320 ml/day) provides 1980 kcal, 90g protein, 232g CHO, 20g fiber, 78g fat, 1008 ml water and 132% RDIs vit/min. Nutrition Monitoring and Goals: Nutrition to start NFPE on follow up as able Elytes WNL Acuity Level: 4 Carley Deras, RD, LD Weekend Dietitian [1] No past medical history on file. [2] No past surgical history on file. [3] No Known Allergies [4] carvedilol, 6.25 mg, Oral, BID mupirocin, 1 Application, Each Nostril, BID senna-docusate, 1 tablet, Oral, BID Insert peripheral IV, , , Once AND Saline lock IV, , , Once AND sodium chloride, 10 mL, Intravenous, q12h AND sodium chloride, 10 mL, Intravenous, PRN * Progress Notes - Thompson Miller MD - 08/28/2025 11:16 AM EDT Neurosurgery Consult Follow-up Note History, exam, and imaging review with attending and discussed on rounds this morning. Lyla Warren is a 60 y.o. female presenting with Acute L posterior frontal ICH + small SAH (no shift, ICH score 0) after fall with right-sided numbness, s/p spinal fusion. Interval: [place] for DSA tomorrow Exam: GCS (EMV): 464 Says name and simple sentences Expressive aphasia w/ word finding difficulties Follows commands appropriately PERRL, EOMI R facial droop R hemibody anaesthesia Moves LUE/LLE antigravity RUE/RLE plegic - To IR tomorrow for DSA - NPO @ [facility] - Q1 Neurochecks - Will follow-up CTH - Hold ASA/DVT ppx - Na 145-150 - MRI brain w and without contrast - Rest of care per primary team - Neurosurgery will continue to follow - Thank you for allowing us to participate in the care of this patient. Please call with any questions or concerns. [phone] Thompson Miller MD Resident Physician PGY-1 Department of Neurosurgery [facility] Cosigned by Jw Ramirez MD at 08/29/2025 1:16 PM EDT Associated attestation - Jw Ramirez MD - 08/29/2025 1:16 PM EDT I saw and evaluated the patient with the resident/fellow. I discussed the case with the resident/fellow and agree with the findings and plan as documented. * Care Plan - Kika Ojeda - 08/28/2025 9:53 AM EDT Problem: Stroke, Intracerebral Hemorrhage Goal: Optimal Coping Outcome: Ongoing, Progressing Intervention: Support Psychosocial Response to Stroke Flowsheets (Taken 08/28/2025950) Supportive Measures: active listening utilized counseling provided positive reinforcement provided Goal: Effective Communication Skills Outcome: Ongoing, Progressing Intervention: Optimize Communication Skills Flowsheets (Taken 08/28/2025950) Communication Enhancement Strategies: call light answered in person extra time allowed for response Goal: Optimal Pain Control and Function Outcome: Ongoing, Progressing Intervention: Monitor and Manage Pain Flowsheets (Taken 08/28/2025950) Pain Management Interventions: pillow support provided position adjusted * Care Plan - Analy Salter - 08/28/2025 6:33 AM EDT Problem: Adult Inpatient Plan of Care Goal: Plan of Care Review Outcome: Ongoing, Not Progressing Flowsheets (Taken 08/28/2025 0625) Progress: no change Plan of Care Reviewed With: patient Goal: Patient-Specific Goal (Individualized) Outcome: Ongoing, Not Progressing Flowsheets (Taken 08/28/2025 0230) Patient/Family-Specific Goals (Include Timeframe): Pt's SBP will remain < 140 during this shift Individualized Care Needs: SBP < 140 Anxieties, Fears or Concerns: stroke diagnosis Goal: Absence of Hospital-Acquired Illness or Injury Outcome: Ongoing, Not Progressing Intervention: Identify and Manage Fall Risk Flowsheets (Taken 08/28/2025 06) Safety Promotion/Fall Prevention: safety round/check completed activity supervised Intervention: Prevent Skin Injury Flowsheets (Taken 08/28/2025624) Skin Protection: incontinence pads utilized Intervention: Prevent and Manage VTE (Venous Thromboembolism) Risk Flowsheets (Taken 08/28/2025 0400) VTE Prevention/Management: bilateral lower extremity SCDs (sequential compression devices) on Intervention: Prevent Infection Flowsheets (Taken 08/28/2025624) Infection Prevention: environmental surveillance performed equipment surfaces disinfected Goal: Optimal Comfort and Wellbeing Outcome: Ongoing, Not Progressing Intervention: Provide Person-Centered Care Flowsheets (Taken 08/28/2025624) Trust Relationship/Rapport: care explained choices provided emotional support provided empathic listening provided questions answered questions encouraged reassurance provided * Assessment & Plan Note - Bridgett Colindres APRN, DNP - 08/28/2025 3:11 AM EDT Associated Problem(s): HTN (hypertension) Goal SBP<150 PRN Hydralazine and Labetalol Cardene drip as needed * Assessment & Plan Note - Bridgett Colindres APRN, DNP - 08/28/2025 3:11 AM EDT Associated Problem(s): Acute intra-cranial hemorrhage (CMS/HCC) -CT/CTA findings as noted -CHRISTIANO consulted -F/u Repeat CT head - MRI pending -Cardene infusion to maintain SBP less than 150 -Keep HOB elevated -Hold all AP/AC/DVT ppx -NIHSS and neuro examinations per ICU protocol -Will continue ongoing stroke education -PT/OT as appropriate * Assessment & Plan Note - Bridgett Colindres APRN, DNP - 08/28/2025 3:11 AM EDT Associated Problem(s): SAH (subarachnoid hemorrhage) -CT/CTA findings as noted -CHRISTIANO consulted -F/u Repeat CT head - MRI pending -Cardene infusion to maintain SBP less than 150 -Keep HOB elevated -Hold all AP/AC/DVT ppx -NIHSS and neuro examinations per ICU protocol -Will continue ongoing stroke education -PT/OT as appropriate * Assessment & Plan Note - Bridgett Colindres APRN, DNP - 08/28/2025 3:11 AM EDT Associated Problem(s): Cerebral edema (CMS/HCC) -CT/CTA findings as noted -CHRISTIANO consulted -F/u Repeat CT head - MRI pending -Cardene infusion to maintain SBP less than 150 -Keep HOB elevated -Hold all AP/AC/DVT ppx -NIHSS and neuro examinations per ICU protocol -Will continue ongoing stroke education -PT/OT as appropriate * Assessment & Plan Note - Bridgett Colindres APRN, DNP - 08/28/2025 3:11 AM EDT Associated Problem(s): Leukocytosis (Resolved 09/09/2025) WBC Count Date Value Ref Range Status 08/27/2025 12.08 (H) 3.70 - 10.30 10*3/uL Final Multifactorial in setting of recent surgery and IPH Continue to follow labs and signs of infection May require further investigation in the future * Assessment & Plan Note - Bridgett Colindres APRN, DNP - 08/28/2025 3:11 AM EDT Associated Problem(s): Hyperglycemia (Resolved 09/09/2025) Glucose, Plasma Date Value Ref Range Status 08/27/2025 171 (H) 74 - 99 mg/dL Final Sliding Scale Insulin for glycemic control while in ICU * Assessment & Plan Note - Bridgett Colindres APRN, DNP - 08/28/2025 3:11 AM EDT Associated Problem(s): Electrolyte disturbance Replace per ICU protocol * Assessment & Plan Note - Bridgett Colindres APRN, DNP - 08/28/2025 3:11 AM EDT Associated Problem(s): NSTEMI (non-ST elevated myocardial infarction) (Resolved 09/09/2025) Troponin 94 ->103 on admission * Assessment & Plan Note - Bridgett Colindres APRN, DNP - 08/28/2025 3:11 AM EDT Associated Problem(s): Feeding difficulty Secondary to dysphagia NG/OG as necessary for PO access Nutrition consulted for TF recs, appreciate coordination of care Tube feeding per nutritional recommendations via DHT PRINCIPAL GIFTS OFFICER consult as indicated * H&P - Bridgett Colindres APRN, DNP - 08/28/2025 12:12 AM EDTAssociated Order(s): Critical Care Post-Procedure Diagnose(s): Acute intra-cranial hemorrhage (CMS/HCC) Critical Care Performed by: Bridgett Colindres APRN, DNP Authorized by: Bridgett Colindres APRN, DNP Critical care provider statement: Critical care time (minutes): 75 Critical care time was exclusive of: Separately billable procedures and treating other patients Critical care was time spent personally by me on the following activities: Development of treatmentplan with patient or surrogate, discussions with consultants, discussions with primary provider, evaluation of patient's response to treatment, examination of patient, ordering and performing treatments and interventions, ordering and review of laboratory studies and ordering and review of radiographic studies 08/28/25 Lauren Lindquist Consulted for critical care management by Stroke ICU HPI Janine Warren is a 60 y.o. female who presents with Acute intra- cranial hemorrhage (CMS/HCC). PMH significant for HTN and recent C4-5 spinal fusion. Today, she presented to [facility] after sustaining a fall in her shower after developing acute onset R-sided weakness without loss of consciousness or head trauma. Reportedly GCS 15 on arrival with C-collar in place. Imaging revealed a L frontalIPH with mild edema and small volume SAH without midline shift. Patient started on nicardipine dripto maintain SBP<150 and NS consulted. Patient admitted to neuro ICU. [facility] consulted for critical care needs. Patient examined at bedside on arrival to unit. Patient with right facial droop, right- sided hemiplegia, and expressive aphasia. Lines/Drains/Tubes: . Active . Name Placement date Placement time Site Days Peripheral IV 08/27/25 Left;Posterior Hand 08/27/25 -- Hand 1 Peripheral IV 08/27/25 Posterior;Right Hand 08/27/252122 Hand less than 1 Arterial Line 08/27/25 Left Radial 08/27/252148 Radial less than 1 Medical/Surgical/Social/Family History I have reviewed and updated the patient history. Home Medications: Home Medications[1] Allergies Patient has no allergy information on record. GCS: Hmea Coma Scale Score: 14 NIH Stroke Scale: 13 Review of Systems Unable to perform ROS: Mental status change Vital signs: Vitals: 08/27/25 2319 BP: 132/70 Pulse: 95 Resp: 19 Temp: SpO2: 92% No intake or output data in the 24 hours ending 08/28/25 0023 Physical Exam: Sedation was held for the purposes of examination. Physical Exam Constitutional: Appearance: She is ill-appearing. HENT: Head: Normocephalic. Nose: Nose normal. Mouth/Throat: Pharynx: Oropharynx is clear. Eyes: Pupils: Pupils are equal, round, and reactive to light. Cardiovascular: Rate and Rhythm: Normal rate and regular rhythm. Pulses: Normal pulses. Radial pulses are 2+ on the right side and 2+ on the left side. Dorsalis pedis pulses are 2+ on the right side and 2+ on the left side. Heart sounds: Normal heart sounds. Pulmonary: Effort: Pulmonary effort is normal. Breath sounds: Normal breath sounds. Abdominal: General: Bowel sounds are normal. Palpations: Abdomen is soft. Musculoskeletal: Right lower leg: No edema. Left lower leg: No edema. Skin: General: Skin is warm and dry. Capillary Refill: Capillary refill takes 2 to 3 seconds. Neurological: Mental Status: She is alert. GCS: GCS eye subscore is 4. GCS verbal subscore is 4. GCS motor subscore is 6. Cranial Nerves: Facial asymmetry present. Results Review I have reviewed the latest lab and imaging results. Assessment and Plan: This patient is critically ill. Assessment & Plan Acute intra-cranial hemorrhage (CMS/HCC) Present on Admission: Yes SAH (subarachnoid hemorrhage) Present on Admission: Yes Cerebral edema (CMS/HCC) Present on Admission: Unknown -CT/CTA findings as noted -NS consulted -F/u Repeat CT head - MRI pending -Cardene infusion to maintain SBP less than 150 -Keep HOB elevated -Hold all AP/AC/DVT ppx -NIHSS and neuro examinations per ICU protocol -Will continue ongoing stroke education -PT/OT as appropriate HTN (hypertension) Present on Admission: Yes Goal SBP<150 PRN Hydralazine and Labetalol Cardene drip as needed Leukocytosis Present on Admission: Unknown WBC Count Date Value Ref Range Status 08/27/2025 12.08 (H) 3.70 - 10.30 10*3/uL Final Multifactorial in setting of recent surgery and IPH Continue to follow labs and signs of infection May require further investigation in the future Hyperglycemia Present on Admission: Unknown Glucose, Plasma Date Value Ref Range Status 08/27/2025 171 (H) 74 - 99 mg/dL Final Sliding Scale Insulin for glycemic control while in ICU Electrolyte disturbance Present on Admission: Unknown Replace per ICU protocol NSTEMI (non-ST elevated myocardial infarction) Present on Admission: Unknown Troponin 94 ->103 on admission Feeding difficulty Present on Admission: Unknown Secondary to dysphagia NG/OG as necessary for PO access Nutrition consulted for TF recs, appreciate coordination of care Tube feeding per nutritional recommendations via [employer] PRINCIPAL GIFTS OFFICER consult as indicated Bridgett Colindres APRN, DNP [1] (Not in a hospital admission) * Progress Notes - Danya Duran, PharmD - 08/27/2025 11:47 PM EDT Pharmacy Stroke Evaluation Note Lauren Lindquist is a 60 y.o. female that presents from Home with symptoms of extremity weakness,extremity numbness, and slurred speech. Last known well: 735. PMH: No past medical history on file. Recent cervical fusion at OSH preformed yesterday, encompassing C4-T1. Time of arrival to the ED: 08/27/2025 8:46 PM Pertinent Vitals, Labs, and Medications Baseline CT: Current intracranial hemorrhage Blood Pressure: BP Readings from Last 1 Encounters: 08/27/25 (!) 176/86 Laboratory Values: Platelet Count Date Value Ref Range Status 08/27/2025 289 155 - 369 10*3/uL Final POCT Glucose Date Value Ref Range Status 08/27/2025 175 (H) 74 - 99 mg/dL Final Comment: Accuracy of a glucose result obtained from a capillary whole blood specimen relies upon adequate, non-compromised capillary blood flow. If the capillary glucose result is not consistent with the patient's clinical signs and symptoms, glucose testing should be repeated with either an arterial or venous sample on the glucometer or sent to the main labortory for testing. NIHSS: 13 NIHSS obtained prior to CT scan?: Yes Medications Prior to Arrival: Anticoagulants: Per EMS history, Patient is not prescribed anticoagulation. Antiplatelets: Per EMS history, Patient is not prescribed oral antiplatelet agents. Evaluation for the Use of Thrombolytics: Patient was evaluated for thrombolytics and determined: Patient is not a candidate for thrombolytics. Contraindications: Current intracranial hemorrhage and History of intracranial or spinal surgery within 3 months Danya Duran PDOC - PGY1 Marina Manager Resident Danya Duran PharmD 08/27/2025 9:32 PM * Consults - Salome Paiz MD - 08/27/2025 10:16 PM EDTAssociated Order(s): Inpatient consult to Neurosurgery Inpatient consult to Neurosurgery Consult performed by: Salome Paiz MD Consult ordered by: Shahida Fernando DO Reason For Consult L frontal ICH (ICH score 0) Requesting Service: ED Requested Date/Time: 08/27/2025 10:16 PM History Of Present Illness Lauren Lindquist is a 60 y.o. female with recent spinal fusion, presented after sudden right-sided numbness and inability to walk, fell without LOC or head trauma. GCS 15 on arrival, c-collar in place. Imaging: new left posterior frontal IPH with mild edema and small volume SAH, no midline shift,no vascular lesion. On ASA (held for surgery). nicardipine started for BP (SBP 148-176). Labs: WBC 12, Plts 289, INR 1.0, Gluc 171, Cr 0.56. Past Medical History She has no past medical history on file. Surgical History She has no past surgical history on file. Family History Family History[1] Social History She has no history on file for tobacco use, alcohol use, and drug use. Medications Current Medications[2] Allergies Patient has no allergy information on record. Neuro Exam GCS (EMV): 464 Says name and simple sentences Expressive aphasia w/ word finding difficulties Follows commands appropriately PERRL, EOMI R facial droop R hemibody anaesthesia Moves LUE/LLE antigravity RUE/RLE plegic Surgical site dressed Last Recorded Vitals Visit Vitals BP (!) 148/79 Pulse 77 Temp 36.7 ??C (98.1 ??F) (Oral) Resp 15 Wt 73.3 kg (161 lb 9.6 oz) SpO2 (!) 89% Platelets and Coags: Results from last 7 days Lab Units 08/27/25 2111 WBC 10*3/uL 12.08* HEMOGLOBIN g/dL 13.2 HEMATOCRIT % 37.6 PLATELETS 10*3/uL 289 Results from last 7 days Lab Units 08/27/25 2111 APTT sec 28 INR 1.0 Imaging I personally reviewed, independently interpreted, and read available radiology reports (as available) for the following studies, and with the following findings: CTH: L posterior frontal ICH, mild edema, small L frontal SAH, no MLS CTA head/neck: no vascular lesion, no aneurysm/AVM Assessment and Plan Lauren Lindquist is a 60 y.o. female presenting with Acute L posterior frontal ICH + small SAH (no shift, ICH score 0) after fall with right-sided numbness, s/p spinal fusion. [] ICU, Q1 neuro [] BP control (SBP <140), A-Line [] NPO@MN [] CTH 6h w/ [employer] protocol (add CT venogram) [] Hold ASA, DVT ppx (mechanical) [] Na 145-150 [] MRI brain +/- contrast [] Stroke to primarily manage [] Will continue to follow Salome Paiz MD PGY-3, Neurosurgery [1] No family history on file. [2] Current Facility-Administered Medications Medication Dose Route Frequency Provider Last Rate Last Admin niCARdipine (Cardene) infusion 40 mg in NS 200 mL (0.2 mg/mL) (premix) 0-15 mg/hr Intravenous Titrated Chasity Caceres DO 37.5 mL/hr at 08/27/25 2141 7.5 mg/hr at 08/27/251 No current outpatient medications on file. Cosigned by Jw Ramirez MD at 08/29/2025 12:57 PM EDT Associated attestation - Jw Ramirez MD - 08/29/2025 12:57 PM EDT I saw and evaluated the patient with the resident/fellow. I discussed the case with the resident/fellow and agree with the findings and plan as documented. * Consults - Mickey Torres MBBS - 08/27/2025 9:23 PM EDTAssociated Order(s): Consult to Neurology Consult to Neurology Consult performed by: Mickey Torres MBBS Consult ordered by: Shahida Fernando DO Stroke Consult Subjective History Of Present Illness Lauren Lindquist is a 60 y.o. female with medical history of Hypertension, C4- C5 spinal fusion anterior approach yesterday at [facility] was discharged 08/26 who presented from home asa stroke alert. Patient was seen immediately on arrival. Last known normal: 1929. The patient presented with initial deficits of right-sided weakness and right-sided facial droop giving a baseline NIHSS of 13. BP was (!) 155/87 and BG 175 (H). History was obtained from patient and emergency medical director of hospice. Patient had a C4-C5 ACDF yesterday and was discharged home. Patient was in the shower and came out of the shower felt right-sided weakness and had a fall and did not hit her head and did not lose consciousness. This history was obtained from the grand daughter by the EMS. Home use of antiplatelets/AC: denies antiplatelet and anticoagulant use Tpa was not administered due to contraindications bleed Images were discussed with Neurointerventionalist travel information center supervisor via the [employer] areli. Thrombectomy was not performed due to no large vessel occlusion. Past Medical and Surgical History Past Medical History[1] Surgical History[2] Family History Family History[3] Social History: reports that she quit smoking about 2 months ago. Her smoking use included cigarettes. She has never used smokeless tobacco. She reports that she does not drink alcohol and does not use drugs. Allergies: Patient has no allergy information on record. Home Medications No current outpatient medications Objective Vitals reviewed and are pertinent for elevated blood pressure Visit Vitals BP (!) 149/74 Pulse 90 Temp 36.6 ??C (97.9 ??F) (Oral) SpO2 94% Physical exam Neurological: Mental Status: ATTENTION/CONCENTRATION: Alert, PSYCHOMOTOR ACTIVITY: Normal, Interaction Quality: Cooperative, Patient follows simple instruction Speech: Intact CN: Pupil: equal, round, reactive to light and accommodation I - deferred II - VF: upper quadrantanopsia left III, IV, - EOMI, Nystagmus: none V - Facial sensation: Grossly intact to touch VII - Facial movements: Facial asymmetry noted right sided facial droop VIII - normal, Auditory acuity intact to conversation IX, X - Palate elevated normally, uvula midline XI - Movement and strength are normal for age XII - Tongue Midline and protrudes normally and Tongue movements are full and equal Motor: Bulk normal and tone normal RUE: 1/5 strength LUE: 4/5 strength, no drift RLE: 0/5 strength LLE: 4/5 strength, no drift No asterixis, tremor or myoclonus were noted. Sensory: intact light touch Reflexes: 2+ No ankle clonus. Coordination: finger to nose normal on left side Gait: deferred Labs Labs in last 18 hours CBC WBC 16.22 (H) Hb 14.5 Plt 312 Hct 40.8 ANC 13.43 (H) INR 1.0, PTT 28, Anti-Xa <0.11 BMP Na 136 Cl 102 BUN 15 Glu 175 (H) K 3.5 (L) Co2 21 (L) Cr 0.55 (L) Ca 9.2 iCa 4.5 (L) Mg 1.8 (L), Phos 2.1 (L) Lactate 1.0 LFT AST 46 (H) AlkPhos 97 T Prot 6.8 ALK 24 Bili 0.7 Alb ?? D.Bili ?? Imaging: I personally viewed the images of the CTH and CTA from admission, and they were remarkable for Intraparenchymal bleed in the posterior left frontal lobe with mild surrounding edema as described above. Additional small volume subarachnoid hemorrhage in the left frontal lobe. No significant midline shift. and showed no large vessel occlusion. I reviewed the radiology reports of the admission CTH and CTA and they reported Intraparenchymal bleed in the posterior left frontal lobe with mild surrounding edema as described above. Additional small volume subarachnoid hemorrhage in the left frontal lobe. No significant midline shift. and no large vessel occlusion. CT Head wo IV contrast Result Date: 08/27/2025 Impression: Intraparenchymal bleed in the posterior left frontal lobe with mild surrounding edema as described above. Additional small volume subarachnoid hemorrhage in the left frontal lobe. No significant midline shift. No evidence of vascular injury in the head or neck. Incidental note of soft tissue stranding and subcutaneous emphysema seen throughout the neck which may be postsurgical given patient's history of recent cervical spine fusion procedure. CRITICAL RESULT: Yes. COMMUNICATION: The critical findings were discussed via phone with Chasity Caceres DO on 08/27/2025 9:18 PM by Jennifer Monge MD with acknowledgment of the results . Preliminary report signed by Jennifer Monge MD on 08/27/2025 9:29 PM By electronically signing this report, I, the attending physician, attest that I have personally reviewed the images/data for the above examination(s) and agree with the final edited report. Drafted by Jennifer Monge MD on 08/27/2025 9:08 PM Final report signed by Verena Whitman MD on 08/27/2025 9:[address] Angio Head Result Date: 08/27/2025 Impression: Intraparenchymal bleed in the posterior left frontal lobe with mild surrounding edema as described above. Additional small volume subarachnoid hemorrhage in the left frontal lobe. No significant midline shift. No evidence of vascular injury in the head or neck. Incidental note of soft tissue stranding and subcutaneous emphysema seen throughout the neck which may be postsurgical given patient's history of recent cervical spine fusion procedure. CRITICAL RESULT: Yes. COMMUNICATION: The critical findings were discussed via phone with Chasity Caceres DO on 08/27/2025 9:18 PM by Jennifer Monge MD with acknowledgment of the results . Preliminary report signed by Jennifer Monge MD on 08/27/2025 9:29 PM By electronically signing this report, I, the attending physician, attest that I have personally reviewed the images/data for the above examination(s) and agree with the final edited report. Drafted by Jennifer Monge MD on 08/27/2025 9:08 PM Final report signed by Verena Whitman MD on 08/27/2025 9:[address] Angio Neck Result Date: 08/27/2025 Impression: Intraparenchymal bleed in the posterior left frontal lobe with mild surrounding edema as described above. Additional small volume subarachnoid hemorrhage in the left frontal lobe. No significant midline shift. No evidence of vascular injury in the head or neck. Incidental note of soft tissue stranding and subcutaneous emphysema seen throughout the neck which may be postsurgical given patient's history of recent cervical spine fusion procedure. CRITICAL RESULT: Yes. COMMUNICATION: The critical findings were discussed via phone with Chasity Caceres DO on 08/27/2025 9:18 PM by Jennifer Monge MD with acknowledgment of the results . Preliminary report signed by Jennifer Monge MD on 08/27/2025 9:29 PM By electronically signing this report, I, the attending physician, attest that I have personally reviewed the images/data for the above examination(s) and agree with the final edited report. Drafted by Jennifer Monge MD on 08/27/2025 9:08 PM Final report signed by Verena Whitman MD on 08/27/2025 9:31 PM Assessment/Plan # Intracerebral hemorrhage - ICH score - 0 - Mechanism: Under investigation - CT head: Intraparenchymal bleed in the posterior left frontal lobe with mild surrounding edema asdescribed above. Additional small volume subarachnoid hemorrhage in the left frontal lobe. No significant midline shift. - CTA H/N showed No evidence of vascular injury in the head or neck. - Was not on antiplatelet/anticoagulation - Reversal agents per pharmacy: not needed - PLT 312, INR 1.0, aPTT 28 - NSGY recommended no acute intervention - Bedside dysphagia screen failed Plan: - Strict BP control, SBP goal < 150 mmHg - PRN Labetalol and Hydralazine - Repeat CT head in 6 hours - Repeat CTH in 24hrs or as needed for worsening mental status or neuro exam - Na - Normo natremia. PRN hypertonic saline for worsening mental status - q2 neuro checks, vitals; HOB elevated at all times - hold aspirin, lovenox - Echocardiogram deferred. Reorder if needed - MRI head with and without contrast - Stroke labs - Telemetry Monitoring - NIHSS scale on admission and daily as per protocol(orderset placed) - PT/OT/PRINCIPAL GIFTS OFFICER - Neuropsych screen at discharge Chronic medical conditions: Code status: No Order Staffed with Stroke Fellow - Dr. Gonzalez. Thank you for the opportunity to participate in the care ofthis patient. Please page the neurology service pager with quesitons. Mickey Torres PGY-2 Neurology NIH Stroke Scale Interval: Baseline Time: 7:21 AM Person Administering Scale: ROCAEL Rosen Administer stroke scale items in the order listed. Record performance in each category after each subscale exam. Do not go back and change scores. Follow directions provided for each exam technique. Scores should reflect what the patient does, not what the clinician thinks the patient can do. The clinician should record answers while administering the exam and work quickly. Except where indicated, the patient should not be coached (i.e., repeated requests to patient to make a special effort). 1a Level of consciousness: 0=alert; keenly responsive 1b. LOC questions: 1=Performs one task correctly 1c. LOC commands: 0=Performs both tasks correctly 2. Best Gaze: 0=normal 3. Visual: 1=Partial hemianopia 4. Facial Palsy: 1=Minor paralysis (flattened nasolabial fold, asymmetric on smiling) 5a. Motor left arm: 1=Drift, limb holds 90 (or 45) degrees but drifts down before full 10 seconds: does not hit bed 5b. Motor right arm: 3=No effort against gravity, limb falls 6a. Motor left le=Some effort against gravity, limb cannot get to or maintain (if cured) 90 (or45) degrees, drifts down to bed, but has some effort against gravity 6b Motor right le=No effort against gravity, limb falls 7. Limb Ataxia: 0=Absent 8. Sensory: 0=Normal; no sensory loss 9. Best Language: 0=No aphasia, normal 10. Dysarthria: 0=Normal 11. Extinction and Inattention: 0=No abnormality Total: 13 Note to patient: The Century Cures Act makes medical notes like these available to patients inthe interest of transparency. However, be advised this is a medical document. It is intended as peer to peer communication. It is written in medical language and may contain abbreviations or verbiagethat are unfamiliar. It may appear blunt or direct. Medical documents are intended to carry relevant information, facts as evident, and the clinical opinion of the practitioner. [1] No past medical history on file. [2] No past surgical history on file. [3] No family history on file. Cosigned by Sergey Stern MD at 08/28/2025 2:13 PM EDT Associated attestation - Sergey Stern MD - 08/28/2025 2:13 PM EDT Signature only. * ED Procedure Note - Chasity Caceres DO - 08/27/2025 8:46 PM EDTAssociated Order(s): Arterial Line (Insert) Procedure Reason: hemodynamic monitoring Arterial Line (Insert) Performed by: Chasity Caceres DO Authorized by: Shahida Fernando DO Consent: Consent obtained: Verbal Consent given by: Patient Risks, benefits, and alternatives were discussed: yes Risks discussed: Bleeding, infection and ischemia [place] protocol: Patient identity confirmed: Verbally with patient Attending Supervision?: no Indications: Indications: hemodynamic monitoring and multiple ABGs Sedation: Sedation type: None Procedure details: Location: R radial Needle gauge: 20 G Number of attempts: 1 Transducer: waveform confirmed Post-procedure details: Post-procedure: Sterile dressing applied CMS: Normal Procedure completion: Tolerated Chasity Caceres DO Resident 08/27/252207 Cosigned by Shahida Fernando DO at 08/28/2025 3:09 PM EDT Associated attestation - Shahida Fernando DO - 08/28/2025 3:09 PM EDT I saw and evaluated the patient with the resident/fellow. I discussed the case with the resident/fellow and agree with the findings and plan as documented. I was present during the critical and castillo portions of the procedure and immediately available to furnish services the entire duration. See resident note for details. * ED Provider Notes - Chasity Caceres DO - 08/27/2025 8:46 PM EDT - HPI Chief Complaint Patient presents with Stroke Alert Red 60-year-old female came in his stroke alert red for right-sided deficits and right facial droop. LKW 1930. Patient had a C4[facility]C5 [facility] was[facility] today. in the shower this evening when she developed right arm weakness called for family member and then fell to the floor due right leg weakness. Did not strike head per EMS report. Lastknown well was 1929. History provided by: EMS personnel and patient Patient History Past Medical History[1] Surgical History[2] Family History[3] Social History[4] Allergies: Allergies[5] Physical Exam ED Triage Vitals Temp Heart Rate Resp BP 08/27/25211208/27/25211208/27/25211208/27/252110 36.7 ??C (98.1 ??F) 73 24 (!) 155/87 SpO2 Temp Source Heart Rate Source Patient Position 08/27/25211208/27/252112 -- -- 96 % Oral BP Location FiO2 (%) -- -- Physical Exam Vitals and nursing note reviewed. Constitutional: General: She is not in acute distress. Appearance: She is well-developed. She is ill-appearing. She is not toxic-appearing. HENT: Head: Normocephalic and atraumatic. Mouth/Throat: Mouth: Mucous membranes are dry. Eyes: Conjunctiva/sclera: Conjunctivae normal. Neck: Comments: C collar in place, dressing to anterior neck. Cardiovascular: Rate and Rhythm: Normal rate and regular rhythm. Heart sounds: No murmur heard. Pulmonary: Effort: Pulmonary effort is normal. No respiratory distress. Breath sounds: Normal breath sounds. Comments: Diminshed bases Abdominal: General: There is no distension. Palpations: Abdomen is soft. Tenderness: There is no abdominal tenderness. Comments: Midline incision CDL Musculoskeletal: General: No swelling. Skin: General: Skin is warm and dry. Capillary Refill: Capillary refill takes less than 2 seconds. Neurological: Mental Status: She is alert. Sensory: Sensory deficit present. Motor: Weakness present. Coordination: Coordination abnormal. Comments: NIH 13, right sided deficit Psychiatric: Mood and Affect: Mood normal. Hema Coma Scale Score: 15 NIH Stroke Scale: 13 ED Course & MDM - Assessment: 60 y.o. female presents to ED with complaint of right arm, leg weakness. It should be noted that the chronic conditions includes C spine surgery ( C4-C5 [facility] at [facility] on 08/27, which currently is not at goal therapy. This complicates the clinical picture because it Comorbidities: may be exacerbating symptoms Differential Diagnosis: Ischemic CVA, hemorrhagic CVA, vertebral artery dissection, hypertension, electrolyte derangement In order to fully explore the differential diagnosis the following treatments and tests were ordered: ED Medication Administration from 08/27/20252044 to 08/27/20252134 Date/Time Order Dose Route Action 08/27/20252053 EDT iohexol (OMNIPaque) 350 MG/ML injection 100 mL 60 mL Intravenous Given 08/27/20252110 EDT niCARdipine (Cardene) infusion 40 mg in NS 200 mL (0.2 mg/mL) (premix) 2.5 mg/hr Intravenous New Bag 08/27/20252120 EDT niCARdipine (Cardene) infusion 40 mg in NS 200 mL (0.2 mg/mL) (premix) 5 mg/hr Intravenous Rate Change - Dual Sign 08/27/20252124 EDT fentaNYL (Sublimaze) injection 75 mcg 75 mcg Intravenous Given All Other Orders Ordered Status Ordering Provider 08/27/252045 Anti Xa Level Unfractionated Heparin STAT Comments: Stroke Alert Acknowledged SHAHIDA FERNANDO 08/27/252051 POCT glucose meter PROCEDURE ONCE Final result POCT, GENERIC PROVIDER 08/27/252045 Cardiac monitoring Until discontinued Acknowledged SHAHIDA FERNANDO 08/27/252045 Oxygen Therapy - Device: Nasal Cannula Continuous Comments: Oxygen per nursing protocol to maintain oxygen saturations above 94% Order ID Start Status Ordering Provider [id number] 08/27/252046 Completed MARIANN FERNANDOICA L [id number] 08/28/25 0800 Acknowledged LEXY FERNANDOSSICA L [id number] 08/28/251999 Acknowledged MARIANN FERNANDOICA L 08/29/25 0800 Scheduled ABDULLAHI, SHAHIDA L 08/29/251999 Scheduled ABDULLAHILEXYSHAHIDA L 08/30/25 0800 Scheduled ABDULLAHI, SAHHIDA L 08/30/251999 Scheduled SHAHIDA FERNANDO 08/31/25 0800 Scheduled SHAHIDA FERNANDO 08/31/25 2000 Scheduled SHAHIDA FERNANDO Acknowledged SHAHIDA FERNANDO 08/27/252045 Insert peripheral IV Once Acknowledged SHAHIDA FERNANDO 08/27/252045 NPO diet Diet effective now Acknowledged SHAHIDA FERNANDO 08/27/252045 POCT glucose Once Acknowledged SHAHIDA FERNANDO 08/27/252045 CBC with Diff STAT Comments: Stroke Alert Final result SHAHIDA FERNANDO 08/27/252045 Prothrombin Time STAT Comments: Stroke Alert In process SHAHIDA FERNANDO 08/27/252045 APTT (PTT) STAT Comments: Stroke Alert In process SHAHIDA FERNANDO 08/27/252045 Comprehensive Metabolic Panel STAT Comments: Stroke Alert In process SHAHIDA FERNANDO 08/27/252045 Test Qualitative Plasma STAT Comments: Stroke Alert In process SHAHIDA FERNANDO 08/27/252045 Troponin now and 120 min STAT Comments: Stroke Alert In process SHAHIDA FERNANDO 08/27/252045 CT Head wo IV contrast Once Final result SHAHIDA FERNANDO 08/27/252045 CT Angio Head Once Comments: The field above indicates approval for Radiology techs to use department protocols. Any changes will be communicated directly to the Ordering Service. Final result SHAHIDA FERNANDO 08/27/252045 CT Angio Neck Once Comments: The field above indicates approval for Radiology techs to use department protocols. Any changes will be communicated directly to the Ordering Service. Final result SHAHIDA FERNANDO 08/27/252045 ECG Adult Once Comments: Special Instructions: After CT Scan is completed upon arrival to room Preliminary result SHAHIDA FERNANDO 08/27/252045 Consult to Neurology Once Specialty: Neurology Provider: (Not yet assigned) Acknowledged SHAHIDA FERNANDO 08/27/252045 Stroke Alert Activation Notification Once Acknowledged SHAHIDA FERNANDO ED Course as of 08/28/25 0020 SatAug 27, 20252109 Patient appears to have large ICH to left side on initial CT. We will start on Cardene for hypertension and contact Neurosurgery [] 2139 Consulted NSGY for IPH [SM] ED Course User Index [SM] Chasity Caceres DO Patient presented as a stroke alert red was taken to CT scanner neuro at bedside for evaluation. Patient found to have large intraparenchymal hemorrhage on left per CT scan. Returned to ED room 62 where she was started on Cardene drip for hypertension. Arterial line placed a left radial catheter see procedure note for further information. Patient admitted to neuro ICU service for further management of intracranial hemorrhage. Updated patient's family on their arrival of condition and further plan of care. Social Determinates of Health Risks (including Economic Stability, Education and level of understanding, Healthcare access and quality and concerning social factors): Lives far away Ultimately, this patient was Was admitted (Admission) There were no encounter diagnoses.. Patient believed to require admission for the listed diagnoses. The Neurology service was consulted for admission and was agreeable to admit to ICU. ED Prescriptions None - [1] No past medical history on file. [2] No past surgical history on file. [3] No family history on file. [4] [5] Not on File Chasity Caceres DO Resident 08/28/2524 Cosigned by Shahida Fernando DO at 08/28/2025 3:10 PM EDT Associated attestation - Shahida Fernando DO - 08/28/2025 3:10 PM EDT I saw and evaluated the patient with the resident/fellow. I discussed the case with the resident/fellow and agree with the findings and plan as documented. Critical Care Additionally, I provided 35 minutes of critical care for ICH with deficits requiring IV antihypertensives. Critical care time was exclusive of: Separately billable procedures and treating other patients andteaching time Critical care was time spent personally by me on the following activities: obtaining history from patient or surrogate examination of patient review of old charts development of treatment plan with patient or surrogate ordering and performing treatments and interventions ordering and reviewing lab studies ordering and reviewing radiographic studies evaluation of patients response to treatment discussion with consultants I assumed subsequent critical care for this patient from a provider in my division, on the same day: no * ED Triage Notes - Kriss Arango, RN - 08/27/2025 8:46 PM EDT Pt arrives via EMS as JEFFERY. Per report pt was showering and fell down after her R side went numb andshe was unable to walk. Pt denies LOC or hitting her head. - BT. Hx of spinal fusion yesterday. Pt arrives in C collar. GCS 15 documented in this encounter Plan of Treatment Upcoming Encounters Date Type Department Care Team (Late st Contact Info) Description 11/29/2025 10:40 AM EST Office Visit [facility] [address] [place] [address] Julia Martinez PA [address] [place] [address] 12/09/2025 11:20 AM EST Office Visit [facility] [address] [place] [address] Hector Fu, NILDA [address] [place] [phone] 12/14/2025 3:00 PM EST Office Visit [facility] [address] [place] [phone] Beto Hair DO [address] [place] [address] Scheduled Orders Name Type Priority Associated Diagnoses Orde r Schedule IR Anesthesia Request Procedures Routine Onc e for 1 Occurrences starting 08/28/2025 until 08/28/2025 Scheduled Referrals Name Type Priority Associated Diagnoses Order Schedule Ambulatory referral to Cardiac Electrophysiology Outpatient Referral Routine Acute intra-cranial hemorrhage (CMS/HCC) 1 Occurrences starting 08/30/2025 until 03/03/2027 Discharge Ambulatory referral to Neurology Outpatient Referral Routine Acute intra-cranial hemorrhage (CMS/HCC) Expected: 12/01/2025, Expires: 03/04/2027 documented as of this encounter Procedures Procedure Name Priority Date/Time Associated Diagnosis Comments ADULT CARDIAC EVENT MONITOR STAT 09/09/2025 1:42 PM EST OXYGEN THERAPY Routine 09/08/2025 8:00 AM EST SODIUM, PLASMA Routine 09/08/2025 3:11 AM EST OXYGEN THERAPY Routine 09/07/2025 8:00 PM EST FL MODIFIED BARIUM SWALLOW Routine 09/07/2025 3:45 PM EST CBC W/O DIFFERENTIAL Routine 09/07/2025 1:52 PM EST MAGNESIUM, PLASMA Routine 09/07/2025 1:5 2 PM EST RENAL FUNCTION PANEL, PLASMA Routine 09/07/2025 1:52 PM EST OXYGEN THERAPY Routine 09/07/2025 8:00 AM EST URINE FAJARDO PANEL Routine 09/07/2025 5:55 AM EST SODIUM, URINE, RANDOM Routine 09/07/2025 5:55 AM EST OSMOLALITY, URINE Routine 09/07/2025 5:5 5 AM EST OXYGEN THERAPY Routine 09/06/2025 8:00 PM EST URINALYSIS WITH REFLEX MICROSCOPIC AND CULTURE Routine 09/06/2025 10:00 AM EST URINALYSIS MICROSCOPIC FOR UA REFLEX Routine 09/06/2025 10:00 AM EST URINALYSIS WITH REFLEX MICROSCOPIC Routine 09/06/2025 10:00 AM EST SODIUM, PLASMA Routine 09/06/2025 9:57 AM EST OXYGEN THERAPY Routine 09/06/2025 8:00 AM EST OXYGEN THERAPY Routine 09/05/2025 8:00 PM EST SODIUM, URINE, RANDOM Routine 09/05/2025 2:09 PM EST OSMOLALITY, URINE Routine 09/05/2025 2:0 9 PM EST SODIUM, PLASMA Routine 09/05/2025 8:37 AM EST OXYGEN THERAPY Routine 09/05/2025 8:00 AM EST CBC W/O DIFFERENTIAL Routine 09/05/2025 1:04 AM EDT MAGNESIUM, PLASMA Routine 09/05/2025 1:0 4 AM EDT RENAL FUNCTION PANEL, PLASMA Routine 09/05/2025 1:04 AM EDT OXYGEN THERAPY Routine 09/04/2025 8:00 PM EDT OXYGEN THERAPY Routine 09/04/2025 8:00 AM EDT OXYGEN THERAPY Routine 09/03/2025 8:00 PM EDT OXYGEN THERAPY Routine 09/03/2025 8:00 AM EDT PROCALCITONIN, PLASMA Add-On 09/03/2025 6:42 AM EDT CBC W/O DIFFERENTIAL Routine 09/03/2025 6:42 AM EDT RENAL FUNCTION PANEL, PLASMA Routine 09/03/2025 6:42 AM EDT OXYGEN THERAPY Routine 09/02/2025 8:00 PM EDT OXYGEN THERAPY Routine 09/02/2025 8:00 AM EDT CBC WITH AUTO DIFFERENTIAL Routine 09/02/2025 3:13 AM EDT OXYGEN THERAPY Routine 09/01/2025 8:[address] HEAD WO IV CONTRAST STAT 10:26 AM EDT OXYGEN THERAPY Routine 09/01/2025 8:00 AM EDT PROCALCITONIN, PLASMA Add-On 09/01/2025 2:19 AM EDT CBC W/O DIFFERENTIAL Routine 09/01/2025 2:19 AM EDT MAGNESIUM, PLASMA Routine 09/01/2025 2:1 9 AM EDT COMPREHENSIVE METABOLIC PANEL, PLASMA Routine 09/01/2025 2:19 AM EDT OXYGEN THERAPY Routine 08/31/2025 8:00 PM EDT URINALYSIS MICROSCOPIC FOR UA REFLEX Routine 08/31/2025 4:02 PM EDT URINALYSIS WITH REFLEX MICROSCOPIC Routine 08/31/2025 4:02 PM EDT ECHO, ADULT TRANSTHORACIC COMPLETE Routine 08/31/2025 11:52 AM EDT OXYGEN THERAPY Routine 08/31/2025 8:00 AM EDT CBC W/O DIFFERENTIAL Routine 08/31/2025 1:30 AM EDT PHOSPHORUS, PLASMA Routine 08/31/2025 1: 30 AM EDT MAGNESIUM, PLASMA Routine 08/31/2025 1:3 0 AM EDT BASIC METABOLIC PANEL, PLASMA Routine 08/31/2025 1:30 AM EDT OXYGEN THERAPY Routine 08/30/2025 8:00 PM EDT FL MODIFIED BARIUM SWALLOW Routine 08/30/2025 10:36 AM EDT OXYGEN THERAPY Routine 08/30/2025 8:00 AM EDT OXYGEN THERAPY STAT 08/30/2025 8:00 AM EDT MR HEAD WO IV CONTRAST Routine 5:10 AM EDT TSH REFLEX FT4 Add-On 08/30/2025 3:34 AM EDT CBC W/O DIFFERENTIAL Routine 08/30/2025 3:34 AM EDT PHOSPHORUS, PLASMA Routine 08/30/2025 3: 34 AM EDT MAGNESIUM, PLASMA Routine 08/30/2025 3:3 4 AM EDT HEMOGLOBIN A1C Add-On 08/30/2025 3:34 AM EDT LIPID PROFILE, PLASMA Add-On 08/30/2025 3:34 AM EDT BASIC METABOLIC PANEL, PLASMA Routine 08/30/2025 3:34 AM EDT OXYGEN THERAPY Routine 08/29/2025 8:00 PM EDT OXYGEN THERAPY STAT 08/29/2025 8:00 PM EDT XR ABDOMEN 1 VIEW Routine 08/29/2025 6:5 0 PM EDT OXYGEN THERAPY Routine 08/29/2025 12:05 PM EDT OXYGEN THERAPY Routine 08/29/2025 12:05 PM EDT OXYGEN THERAPY Routine 08/29/2025 12:05 PM EDT AR CRITICAL CARE, E/M 30-74 MINUTES Routine 08/29/2025 12:00 PM EDT Acute intra-cranial hemorrhage (CMS/HCC) IR ANGIOGRAM CAROTID CEREBRAL BILATERAL Routine 08/29/2025 11:56 AM EDT OXYGEN THERAPY STAT 08/29/2025 8:00 AM EDT CBC W/O DIFFERENTIAL Routine 08/29/2025 12:53 AM EDT PHOSPHORUS, PLASMA Routine 08/29/2025 12 :53 AM EDT MAGNESIUM, PLASMA Routine 08/29/2025 12: 53 AM EDT BASIC METABOLIC PANEL, PLASMA Routine 08/29/2025 12:53 AM EDT OXYGEN THERAPY STAT 08/28/2025 8:[address] CHEST WO IV CONTRAST STAT 08/28/20 10:[address] HEAD WO IV CONTRAST Timed 10:25 AM EDT OXYGEN THERAPY STAT 08/28/2025 8:00 AM EDT ANTI XA LEVEL LOW MOLECULAR WEIGHT HEPARIN Routine 08/28/2025 4:57 AM EDT BLOOD GAS PANEL, ARTERIAL Routine 08/28/2025 4:[address] CERVICAL SPINE WO IV CONTRAST Routine 08/28/2025 4:[address] HEAD WO IV CONTRAST Timed 4:29 AM EDT TROPONIN T, HIGH SENSITIVITY, 2 HOUR, PLASMA Timed 08/28/2025 3:20 AM EDT IONIZED CALCIUM, WHOLE BLOOD Routine 08/28/2025 3:20 AM EDT CBC WITH AUTO DIFFERENTIAL Routine 08/28/2025 3:20 AM EDT PHOSPHORUS, PLASMA Routine 08/28/2025 3: 20 AM EDT MAGNESIUM, PLASMA Routine 08/28/2025 3:2 0 AM EDT BASIC METABOLIC PANEL, PLASMA Routine 08/28/2025 3:20 AM EDT YASMIN AURIS SURVEILLANCE BY PCR Routine 08/28/2025 3:13 AM EDT MULTI DRUG RESISTANCE TEST Routine 08/28/2025 3:13 AM EDT XR CHEST 1 VIEW STAT 08/28/2025 12:44 AM EDT URINALYSIS MICROSCOPIC FOR UA REFLEX Routine 08/28/2025 12:21 AM EDT URINALYSIS WITH REFLEX MICROSCOPIC Routine 08/28/2025 12:21 AM EDT AR CRITICAL CARE, E/M 30-74 MINUTES Routine 08/28/2025 12:12 AM EDT Acute intra-cranial hemorrhage (CMS/HCC) ECG ADULT STAT 08/28/2025 12:03 AM EDT TROPONIN T, HIGH SENSITIVITY, 0 HOUR, PLASMA, REFLEX TO 2 HOUR STAT 08/27/2025 11:11 PM EDT ANTI XA LEVEL UNFRACTIONATED HEPARIN STAT 08/27/2025 11:11 PM EDT PHOSPHORUS, PLASMA Add-On 08/27/2025 11 :11 PM EDT MAGNESIUM, PLASMA Add-On 08/27/2025 11: 11 PM EDT TROPONIN T, HIGH SENSITIVITY, 2 HOUR, PLASMA Timed 08/27/2025 10:19 PM EDT APTT STAT 08/27/2025 9:11 PM EDT PROTHROMBIN TIME(PT) / INR STAT 08/27/2025 9:11 PM EDT CBC WITH AUTO DIFFERENTIAL STAT 08/27/2025 9:11 PM EDT TEST QUALITATIVE PLASMA STAT 08/27/2025 9:11 PM EDT COMPREHENSIVE METABOLIC PANEL, PLASMA STAT 08/27/2025 9:11 PM EDT ECG ADULT STAT 08/27/2025 9:[address] ANGIO NECK STAT 08/27/2025 9:[address] ANGIO HEAD STAT 08/27/2025 9:[address] HEAD WO IV CONTRAST STAT 9:06 PM EDT POCT GLUCOSE METER UNSOLICITED RESULTS Routine 08/27/2025 8:52 PM EDT OXYGEN THERAPY STAT 08/27/2025 8:46 PM EDT OXYGEN THERAPY STAT 08/27/2025 8:46 PM EDT OXYGEN THERAPY STAT 08/27/2025 8:46 PM EDT HC INSERT CATH,ART,PERCUT,SHORTTE RM Routine 08/27/2025 8:46 PM EDT AR INSERT CATH,ART,PERCUT,SHORTTE RM Routine 08/27/2025 8:46 PM EDT documented in this encounter Results * ADULT CARDIAC EVENT MONITOR (09/09/2025 1:42 PM EST) BSA 1.83 m2 CAR DO NOT SEND Anatomical Region Laterality Modality Other Narrative 10/11/2025 9:32 AM EST Preliminary Findings Patient monitored for 25d 1h 11m 5 events were transmitted. 1 patient triggered; 4 auto triggered PACs were not found during the monitoring period 23,816 PVCs with PVC burden of 1% Physician Comments 1) Patient's predominant rhythm is sinus with an average heart rate of 73 beats/minute. Minimum heart rate of 50 beats/minute and maximum heart rate of 114 beats/minute. 2) Patient had no sustained supraventricular or ventricular arrhythmias. 3) Patient reported 1 episode symptoms while wearing the monitor. This correlated to sinus rhythm (NO arrhythmias) 4) Patient had 0% premature supraventricular beat burden and a 1% premature ventricular beat burden. This is within the normal range. Dora Villegas MD [facility] CARDIAC SERVICES PROCED URES Final Result * (ABNORMAL) Sodium (09/08/2025 3:11 AM EST) Sodium, Plasma 134(L) 136 - 145 mmol/L 09/08/2025 3:51 AM EST [facility] Blood Venous blood specimen / Unknown Venipuncture / Unknown 09/08/2025 3:11 AM EST 09/08/2025 3:16 AM EST Alfredo S Richardson STUNT DRIVER LAB BLOOD ORDERABLES Final Result [facility] [address] [place] [address] * FL Modified Barium Swallow (09/07/2025 3:45 PM EST) Anatomical Region Laterality Modality Esophagus, stomach and duodenum Digital Radiography Impressions 09/08/2025 8:07 AM EST Trace penetration with no aspiration thin consistency. No aspiration or penetration with the other tested consistencies. Please see separate note by Speech therapy team for dietary recommendations. CRITICAL RESULT: No. COMMUNICATION: Per this written report. By electronically signing this report, I, the attending physician, attest that I have personally reviewed the images/data for the above examination(s) and agree with the final edited report. Drafted by Claude Mercedes MD on 09/07/2025 4:25 PM Final report signed by Xander Banks MD on 09/08/2025 8:07 AM Narrative 09/08/2025 8:07 AM EST CLINICAL INDICATION: Per PRINCIPAL GIFTS OFFICER TECHNIQUE: Modified barium swallow was performed utilizing video fluoroscopy in conjunction with the Speech Pathology team. The patient ingested barium media of varying consistencies. Fluoroscopy Time: 1.5 minutes. COMPARISON: None. FINDINGS: Swallowing: Thin consistency (IDDSI 0): There is no aspiration. Trace penetration with sequential sips by this straw. Mild vallecular residue. Pudding consistency (IDDSI 4): There is no aspiration or penetration. Regular cracker consistency (IDDSI 7): There is no aspiration or penetration. Other: Anterior spinal fusion. Procedure Note Xander Banks MD - 09/08/2025 CLINICAL INDICATION: Per PRINCIPAL GIFTS OFFICER TECHNIQUE: Modified barium swallow was performed utilizing video fluoroscopy inconjunction with the Speech Pathology team. The patient ingested bariummedia of varying consistencies. Fluoroscopy Time: 1.5 minutes. COMPARISON: None. FINDINGS: Swallowing: Thin consistency (IDDSI 0): There is no aspiration. Trace penetration withsequential sips by this straw. Mild vallecular residue. Pudding consistency (IDDSI 4): There is no aspiration or penetration. Regular cracker consistency (IDDSI 7): There is no aspiration orpenetration. Other: Anterior spinal fusion. IMPRESSION: Trace penetration with no aspiration thin consistency. No aspiration orpenetration with the other tested consistencies. Please see separate note by Speech therapy team for dietaryrecommendations. CRITICAL RESULT: No. COMMUNICATION: Per this written report. By electronically signing this report, I, the attending physician, attestthat I have personally reviewed the images/data for the aboveexamination(s) and agree with the final edited report. Drafted by Claude Mercedes MD on 09/07/2025 4:25 PM Final report signed by Xander Banks MD on 09/08/2025 8:07 AM us Tanikasalas Cooney STUNT DRIVER IMG FLUOROSCOPY PROCEDURES Fin al Result * (ABNORMAL) Renal function panel (09/07/2025 1:52 PM EST) Glucose, Plasma 155(H) 74 - 99 mg/dL 09/07/2025 2:41 PM EST [facility] BUN, Plasma 24(H) 7 - 21 mg/dL 09/07/2025 2:41 PM EST [facility] Creatinine, Plasma 0.73 0.60 - 1.10 mg/dL 09/07/2025 2:41 PM EST [facility] BUN/Creatinine Ratio 33 09/07/2025 2:41 PM EST [facility] Sodium, Plasma 132(L) 136 - 145 mmol/L 09/07/2025 2:41 PM EST [facility] Potassium, Plasma 3.9 3.6 - 4.9 mmol/L 09/07/2025 2:41 PM EST [facility] Chloride, Plasma 98 97 - 107 mmol/L 09/07/2025 2:41 PM EST [facility] CO2, Plasma 24 22 - 29 mmol/L 09/07/2025 2:41 PM EST [facility] Anion Gap 10 6 - 16 mmol/L 09/07/2025 2:41 PM [facility] Total Calcium, Plasma 9.1 8.9 - 10.2 mg/dL 09/07/2025 2:41 PM [facility] Phosphorus, Plasma 3.9 2.5 - 4.5 mg/dL 09/07/2025 2:41 PM EST [facility] Albumin, Plasma 3.6 3.5 - 5.2 g/dL 09/07/2025 2:41 PM EST [facility] eGFRcr 94.9 mL/min/1.7 3m*2 09/07/2025 2:41 PM EST [facility] Comment:Reported eGFRcr in m L/min/1.73m2 is based the CKD-EPI 2020 equation that does not use a race coefficient. Blood Venous blood specimen / Unknown Venipuncture / Unknown 09/07/2025 1:52 PM EST 09/07/2025 2:11 PM EST Alfredo Richardson STUNT DRIVER LAB BLOOD ORDERABLES Final Result Performing Organization Address City/[facility] Hospital/ZIP Co de Phone Number [facility] [address] [place] [address] * Magnesium (09/07/2025 1:52 PM EST) Magnesium, Plasma 2.0 1.9 - 2.4 mg/dL 09/07/2025 2:41 PM EST [facility] Blood Venous blood specimen / Unknown Venipuncture / Unknown 09/07/2025 1:52 PM EST 09/07/2025 2:11 PM EST Alfredo Richardson STUNT DRIVER LAB BLOOD ORDERABLES Final Result Performing Organization Address City/[facility]/ZIP Co de Phone Number [facility] [address] [place] [address] * (ABNORMAL) CBC W/O Differential (09/07/2025 1:52 PM EST) WBC Count 9.75 3.70 - 10.30 10*3/uL LAB HEMATOLOGY METHOD 09/07/2025 2:47 PM EST [facility] RBC Count 3.96 3.90 - 5.20 10*6/uL LAB HEMATOLOGY METHOD 09/07/2025 2:47 PM EST [facility] HGB 12.9 11.2 - 15.7 g/dL LAB HEMATOLOGY METHOD 09/07/2025 2:47 PM EST [facility] HCT 36.9 34.0 - 45.0 % LAB HEMATOLOGY METHOD 09/07/2025 2:47 PM EST [facility] Platelet Count 407(H) 155 - 369 10*3/uL LAB HEMATOLOGY METHOD 09/07/2025 2:47 PM EST [facility] MCV 93 79 - 98 fL LAB HEMATOLOGY METHOD 09/07/2025 2:47 PM EST [facility] MCH 32.6(H) 26.0 - 32.0 pg LAB HEMATOLOGY METHOD 09/07/2025 2:47 PM EST [facility] MCHC 35.0 30.7 - 35.5 g/dL LAB HEMATOLOGY METHOD 09/07/2025 2:47 PM EST [facility] RDW 11.6 11.5 - 14.5 % LAB HEMATOLOGY METHOD 09/07/2025 2:47 PM EST [facility] MPV 8.7(L) 8.8 - 12.5 fL LAB HEMATOLOGY METHOD 09/07/2025 2:47 PM EST [facility] nRBC 0.0 <=0.0 per 100 WBCs LAB HEMATOLOGY METHOD 09/07/2025 2:47 PM EST [facility] Blood Venous blood specimen / Unknown Venipuncture / Unknown 09/07/2025 1:52 PM EST 09/07/2025 2:39 PM EST us Alfredo Richardson APRN LAB BLOOD ORDERABLES Final Result [facility] [address] [place] [address] * Sodium, urine, random (09/07/2025 5:55 AM EST) Sodium, Urine 74 mmol/L 09/07/2025 6:28 AM EST [facility] Urine Urine specimen obtained by clean catch procedure / Unknown Non-blood Collection / Unknown 09/07/2025 5:55 AM EST 09/07/2025 6:11 AM EST Tanika Cooney APRN LAB URINE ORDERABLES Final Res ult [facility] [address] [place] [address] * Osmolality, urine (09/07/2025 5:55 AM EST) Osmolality, Urine 607 50 - 1,200 mOsm/kg 09/07/2025 6:[address] [facility] Urine Urine specimen obtained by clean catch procedure / Unknown Non-blood Collection / Unknown 09/07/2025 5:55 AM EST 09/07/2025 6:12 AM EST Tanika Cooney APRN LAB URINE ORDERABLES Final Res ult Performing Organization Address [facility] Hospital/ZIP [place] [address] * Urine Fajardo Panel (09/07/2025 5:55 AM EST) Extra Reflex urine culture not indicated 09/07/2025 8:[address] [facility] Urine Urine specimen obtained by clean catch procedure / Unknown Non-blood Collection / Unknown 09/07/2025 5:55 AM EST 09/07/2025 6:12 AM EST Tanika Cooney APRN LAB URINE ORDERABLES Final Res ult Performing Organization Address [facility] de Phone Number [facility] [address] [place] [address] * Urinalysis Microscopic Examination (09/06/2025 10:00 AM EST) Urine Urine specimen obtained by clean catch procedure / Unknown Non-blood Collection / Unknown 09/06/2025 10:00 AM EST 09/06/2025 10:05 AM EST Tanika Cooney APRN LAB URINE ORDERABLES Final Res ult Performing Organization Address [facility] [place] [address] * (ABNORMAL) Urinalysis with reflex microscopic (Culture NOT Included) (09/06/2025 10:00 AM EST) Color, Urine Yellow LAB URINALYSIS - AUTOMATED METHOD 09/06/2025 10:19 AM [facility] Clarity, Urine Clear LAB URINALYSIS - AUTOMATED METHOD 09/06/2025 10:19 AM [facility] Spec [place], Urine 1.021 1.005 - 1.030 LAB URINALYSIS - AUTOMATED METHOD 09/06/2025 10:19 AM [facility] pH, Urine 6.5 5.0 - 8.0 LAB URINALYSIS - AUTOMATED METHOD 09/06/2025 10:19 AM [facility] Protein, Urine Negative Negative mg/dL LAB URINALYSIS - AUTOMATED METHOD 09/06/2025 10:19 AM [facility] Glucose, Urine Negative Negative mg/dL LAB URINALYSIS - AUTOMATED METHOD 09/06/2025 10:19 AM [facility] Ketones, Urine Negative Negative mg/dL LAB URINALYSIS - AUTOMATED METHOD 09/06/2025 10:19 AM [facility] Blood, Urine Negative Negative LAB URINALYSIS - AUTOMATED METHOD 09/06/2025 10:19 AM [facility] Bilirubin, Urine Negative Negative LAB URINALYSIS - AUTOMATED METHOD 09/06/2025 10:19 AM [facility] Urobilinogen, Urine 1.0 0.2 to 1.0 mg/dL LAB URINALYSIS - AUTOMATED METHOD 09/06/2025 10:19 AM [facility] Leukocytes, Urine Trace(A) Negative LAB URINALYSIS - AUTOMATED METHOD 09/06/2025 10:19 AM [facility] Nitrite, Urine Negative Negative LAB URINALYSIS - AUTOMATED METHOD 09/06/2025 10:19 AM [facility] RBC, Urine 1 0 to 3 /HPF LAB URINALYSIS - AUTOMATED METHOD 09/06/2025 10:19 AM [facility] WBC, Urine 0 - 5 0 to 5 /HPF LAB URINALYSIS - AUTOMATED METHOD 09/06/2025 10:19 AM [facility] Squamous Epithelial Cells 3 - 5 0 to 5 /HPF LAB URINALYSIS - AUTOMATED METHOD 09/06/2025 10:19 AM [facility] Hyaline Casts 0 - 2 0 to 5 /LPF LAB URINALYSIS - AUTOMATED METHOD 09/06/2025 10:19 AM [facility] Bacteria, Urine Present Negative LAB URINALYSIS - AUTOMATED METHOD 09/06/2025 10:19 AM EST [facility] Urine Urine specimen obtained by clean catch procedure / Unknown Non-blood Collection / Unknown 09/06/2025 10:00 AM EST 09/06/2025 10:05 AM EST Tanika Cooney APRN LAB URINE ORDERABLES Final Res ult [facility] [address] [place] [address] * (ABNORMAL) Sodium (09/06/2025 9:57 AM EST) Sodium, Plasma 133(L) 136 - 145 mmol/L 09/06/2025 10:38 AM EST [facility] Blood Venous blood specimen / Unknown Venipuncture / Unknown 09/06/2025 9:57 AM EST 09/06/2025 10:05 AM EST Tanika Cooney APRN LAB BLOOD ORDERABLES Final Res ult Performing Organization Address City/Va Hospital/ZIP Co de Phone Number [facility] [address] [place] [address] * Osmolality, urine (09/05/2025 2:09 PM EST) Osmolality, Urine 501 50 - 1,200 mOsm/kg 09/05/2025 2:54 PM EST [facility] Urine Urine specimen obtained by clean catch procedure / Unknown Non-blood Collection / Unknown 09/05/2025 2:09 PM EST 09/05/2025 2:16 PM EST Tanika Cooney APRN LAB URINE ORDERABLES Final Res ult [facility] [address] [place] [address] * Sodium, urine, random (09/05/2025 2:09 PM EST) Sodium, Urine 29 mmol/L 09/05/2025 3:01 PM EST [facility] Urine Urine specimen obtained by clean catch procedure / Unknown Non-blood Collection / Unknown 09/05/2025 2:09 PM EST 09/05/2025 2:23 PM EST Tanika Cooney APRN LAB URINE ORDERABLES Final Res ult Performing Organization Address City/[facility] Hospital/ZIP Co de Phone Number [facility] [address] [place] [address] * (ABNORMAL) Sodium (09/05/2025 8:37 AM EST) Sodium, Plasma 133(L) 136 - 145 mmol/L 09/05/2025 9:12 AM EST [facility] Blood Venous blood specimen / Unknown Venipuncture / Unknown 09/05/2025 8:37 AM EST 09/05/2025 8:50 AM EST Tanika Cooney APRN LAB BLOOD ORDERABLES Final Res ult Performing Organization Address [facility] Hospital/[facility] Co de Phone Number [facility] [address] [place] [address] * Magnesium, Plasma (09/05/2025 1:04 AM EDT) Magnesium, Plasma 2.1 1.9 - 2.4 mg/dL 09/05/2025 1:41 AM EDT [facility] Blood Venous blood specimen / Unknown Venipuncture / Unknown 09/05/2025 1:04 AM EDT 09/05/2025 1:12 AM EDT Tanika Cooney APRN LAB BLOOD ORDERABLES Final Res ult Performing Organization Address City/[facility] Hospital/ZIP Co de Phone Number [facility] [address] [place] [address] * (ABNORMAL) Renal Function Panel, Plasma (09/05/2025 1:04 AM EDT) Glucose, Plasma 174(H) 74 - 99 mg/dL 09/05/2025 1:41 AM EDT [facility] BUN, Plasma 25(H) 7 - 21 mg/dL 09/05/2025 1:41 AM EDT [facility] Creatinine, Plasma 0.59(L) 0.60 - 1.10 mg/dL 09/05/2025 1:41 AM EDT [facility] BUN/Creatinine Ratio 42 09/05/2025 1:41 AM EDT [facility] Sodium, Plasma 132(L) 136 - 145 mmol/L 09/05/2025 1:41 AM EDT [facility] Potassium, Plasma 3.7 3.6 - 4.9 mmol/L 09/05/2025 1:41 AM EDT [facility] Chloride, Plasma 96(L) 97 - 107 mmol/L 09/05/2025 1:41 AM EDT [facility] CO2, Plasma 25 22 - 29 mmol/L 09/05/2025 1:41 AM EDT [facility] Anion Gap 11 6 - 16 mmol/L 09/05/2025 1:41 AM EDT [facility] Total Calcium, Plasma 9.2 8.9 - 10.2 mg/dL 09/05/2025 1:41 AM EDT [facility] Phosphorus, Plasma 3.7 2.5 - 4.5 mg/dL 09/05/2025 1:41 AM EDT [facility] Albumin, Plasma 3.9 3.5 - 5.2 g/dL 09/05/2025 1:41 AM EDT [facility] eGFRcr 104.0 mL/min/1.7 3m*2 09/05/2025 1:41 AM EDT [facility] Comment:Reported eGFRcr in m L/min/1.73m2 is based the CKD-EPI 2020 equation that does not use a race coefficient. Blood Venous blood specimen / Unknown Venipuncture / Unknown 09/05/2025 1:04 AM EDT 09/05/2025 1:12 AM EDT us Tanika Cooney APRN LAB BLOOD ORDERABLES Final Res ult [facility] [address] [place] [address] * (ABNORMAL) CBC W/O Differential (09/05/2025 1:04 AM EDT) WBC Count 13.51(H) 3.70 - 10.30 10*3/uL LAB HEMATOLOGY METHOD 09/05/2025 1:21 AM EDT [facility] RBC Count 4.45 3.90 - 5.20 10*6/uL LAB HEMATOLOGY METHOD 09/05/2025 1:21 AM EDT [facility] HGB 14.2 11.2 - 15.7 g/dL LAB HEMATOLOGY METHOD 09/05/2025 1:21 AM EDT [facility] HCT 40.8 34.0 - 45.0 % LAB HEMATOLOGY METHOD 09/05/2025 1:21 AM EDT [facility] Platelet Count 393(H) 155 - 369 10*3/uL LAB HEMATOLOGY METHOD 09/05/2025 1:21 AM EDT [facility] MCV 92 79 - 98 fL LAB HEMATOLOGY METHOD 09/05/2025 1:21 AM EDT [facility] MCH 31.9 26.0 - 32.0 pg LAB HEMATOLOGY METHOD 09/05/2025 1:21 AM EDT [facility] MCHC 34.8 30.7 - 35.5 g/dL LAB HEMATOLOGY METHOD 09/05/2025 1:21 AM EDT [facility] RDW 11.5 11.5 - 14.5 % LAB HEMATOLOGY METHOD 09/05/2025 1:21 AM EDT [facility] MPV 8.3(L) 8.8 - 12.5 fL LAB HEMATOLOGY METHOD 09/05/2025 1:21 AM EDT [facility] nRBC 0.0 <=0.0 per 100 WBCs LAB HEMATOLOGY METHOD 09/05/2025 1:21 AM EDT [facility] Blood Venous blood specimen / Unknown Venipuncture / Unknown 09/05/2025 1:04 AM EDT 09/05/2025 1:12 AM EDT us Tanikasalas Cooney [employer] LAB BLOOD ORDERABLES Final Res ult [facility] [address] [place] [address] * Procalcitonin (09/03/2025 6:42 AM EDT) Procalcitonin, Plasma <0.06 <0.09 ng/mL 09/03/2025 8:32 AM EDT [facility] Blood Venous blood specimen / Unknown Venipuncture / Unknown 09/03/2025 6:42 AM EDT 09/03/2025 6:48 AM EDT Narrative [facility] - 09/03/2025 8:32 AM EDT Procalcitonin concentrations in healthy individuals are <0.09 ng/mL. Published data support the following interpretive risk assessment: An elevated procalcitonin result does not always indicate sepsis. Various non-infectious conditions are known to increase procalcitonin. Results should be considered in the context of clinical symptoms and other laboratory tests. Procalcitonin >2.0 ng/mL: Concentrations >2.0 ng/mL on the first day of ICU admission are associated with a higher risk of progression to severe sepsis and/or septic shock. The change in PCT over time may help predict 28 day mortality risk. Please consult [email or web address]-wtu-[email or web address] for more information. Test performed at [facility], [facility]. us Tanika Cooney APRN LAB BLOOD ORDERABLES Final Res ult [facility] [address] [place] [address] * (ABNORMAL) Renal function panel (09/03/2025 6:42 AM EDT) Glucose, Plasma 174(H) 74 - 99 mg/dL 09/03/2025 7:19 AM EDT [facility] BUN, Plasma 27(H) 7 - 21 mg/dL 09/03/2025 7:19 AM EDT [facility] Creatinine, Plasma 0.61 0.60 - 1.10 mg/dL 09/03/2025 7:19 AM EDT [facility] BUN/Creatinine Ratio 44 09/03/2025 7:19 AM EDT [facility] Sodium, Plasma 135(L) 136 - 145 mmol/L 09/03/2025 7:19 AM EDT [facility] Potassium, Plasma 4.3 3.6 - 4.9 mmol/L 09/03/2025 7:19 AM EDT [facility] Chloride, Plasma 99 97 - 107 mmol/L 09/03/2025 7:19 AM EDT [facility] CO2, Plasma 24 22 - 29 mmol/L 09/03/2025 7:19 AM EDT [facility] Anion Gap 12 6 - 16 mmol/L 09/03/2025 7:19 AM EDT [facility] Total Calcium, Plasma 9.3 8.9 - 10.2 mg/dL 09/03/2025 7:19 AM EDT [facility] Phosphorus, Plasma 3.1 2.5 - 4.5 mg/dL 09/03/2025 7:19 AM EDT [facility] Albumin, Plasma 3.9 3.5 - 5.2 g/dL 09/03/2025 7:19 AM EDT [facility] eGFRcr 103.1 mL/min/1.7 3m*2 09/03/2025 7:19 AM EDT [facility] Comment:Reported eGFRcr in m L/min/1.73m2 is based the CKD-EPI 2020 equation that does not use a race coefficient. Blood Venous blood specimen / Unknown Venipuncture / Unknown 09/03/2025 6:42 AM EDT 09/03/2025 6:48 AM EDT Alfredo Richardson APRN LAB BLOOD ORDERABLES Final Result [facility] [address] [place] [address] * (ABNORMAL) CBC W/O Differential (09/03/2025 6:42 AM EDT) WBC Count 12.70(H) 3.70 - 10.30 10*3/uL LAB HEMATOLOGY METHOD 09/03/2025 6:56 AM EDT [facility] RBC Count 4.45 3.90 - 5.20 10*6/uL LAB HEMATOLOGY METHOD 09/03/2025 6:56 AM EDT [facility] HGB 14.3 11.2 - 15.7 g/dL LAB HEMATOLOGY METHOD 09/03/2025 6:56 AM EDT [facility] HCT 41.1 34.0 - 45.0 % LAB HEMATOLOGY METHOD 09/03/2025 6:56 AM EDT [facility] Platelet Count 392(H) 155 - 369 10*3/uL LAB HEMATOLOGY METHOD 09/03/2025 6:56 AM EDT [facility] MCV 92 79 - 98 fL LAB HEMATOLOGY METHOD 09/03/2025 6:56 AM EDT [facility] MCH 32.1(H) 26.0 - 32.0 pg LAB HEMATOLOGY METHOD 09/03/2025 6:56 AM EDT [facility] MCHC 34.8 30.7 - 35.5 g/dL LAB HEMATOLOGY METHOD 09/03/2025 6:56 AM EDT [facility] RDW 11.6 11.5 - 14.5 % LAB HEMATOLOGY METHOD 09/03/2025 6:56 AM EDT [facility] MPV 8.5(L) 8.8 - 12.5 fL LAB HEMATOLOGY METHOD 09/03/2025 6:56 AM EDT [facility] nRBC 0.0 <=0.0 per 100 WBCs LAB HEMATOLOGY METHOD 09/03/2025 6:56 AM EDT [facility] Blood Venous blood specimen / Unknown Venipuncture / Unknown 09/03/2025 6:42 AM EDT 09/03/2025 6:48 AM EDT Alfredo Richardson APRN LAB BLOOD ORDERABLES Final Result [facility] [address] [place] [address] * (ABNORMAL) CBC and differential (09/02/2025 3:13 AM EDT) WBC Count 14.14(H) 3.70 - 10.30 10*3/uL LAB HEMATOLOGY METHOD 09/02/2025 3:25 AM EDT [facility] RBC Count 4.45 3.90 - 5.20 10*6/uL LAB HEMATOLOGY METHOD 09/02/2025 3:25 AM EDT [facility] HGB 14.3 11.2 - 15.7 g/dL LAB HEMATOLOGY METHOD 09/02/2025 3:25 AM EDT [facility] HCT 40.8 34.0 - 45.0 % LAB HEMATOLOGY METHOD 09/02/2025 3:25 AM EDT [facility] Platelet Count 341 155 - 369 10*3/uL LAB HEMATOLOGY METHOD 09/02/2025 3:25 AM EDT [facility] MCV 92 79 - 98 fL LAB HEMATOLOGY METHOD 09/02/2025 3:25 AM EDT [facility] MCH 32.1(H) 26.0 - 32.0 pg LAB HEMATOLOGY METHOD 09/02/2025 3:25 AM EDT [facility] MCHC 35.0 30.7 - 35.5 g/dL LAB HEMATOLOGY METHOD 09/02/2025 3:25 AM EDT [facility] RDW 11.6 11.5 - 14.5 % LAB HEMATOLOGY METHOD 09/02/2025 3:25 AM EDT [facility] MPV 8.5(L) 8.8 - 12.5 fL LAB HEMATOLOGY METHOD 09/02/2025 3:25 AM EDT [facility] nRBC 0.0 <=0.0 per 100 WBCs LAB HEMATOLOGY METHOD 09/02/2025 3:25 AM EDT [facility] Differential Type Automated LAB HEMATOLOGY METHOD 09/02/2025 3:25 AM EDT [facility] Neutrophils % 70 % LAB HEMATOLOGY METHOD 09/02/2025 3:25 AM EDT [facility] Lymphocytes % 20 % LAB HEMATOLOGY METHOD 09/02/2025 3:25 AM EDT [facility] Monocytes % 7 % LAB HEMATOLOGY METHOD 09/02/2025 3:25 AM EDT [facility] Eosinophils % 3 % LAB HEMATOLOGY METHOD 09/02/2025 3:25 AM EDT [facility] Basophils % 0 % LAB HEMATOLOGY METHOD 09/02/2025 3:25 AM EDT [facility] Immature Granulocytes % 0 % LAB HEMATOLOGY METHOD 09/02/2025 3:25 AM EDT [facility] Neutrophils Absolute 9.75(H) 1.60 - 6.10 10*3/uL LAB HEMATOLOGY METHOD 09/02/2025 3:25 AM EDT [facility] Lymphocytes Absolute 2.88 1.20 - 3.90 10*3/uL LAB HEMATOLOGY METHOD 09/02/2025 3:25 AM EDT [facility] Monocytes Absolute 1.02(H) 0.30 - 0.90 10*3/uL LAB HEMATOLOGY METHOD 09/02/2025 3:25 AM EDT [facility] Eosinophils Absolute 0.39 0.00 - 0.50 10*3/uL LAB HEMATOLOGY METHOD 09/02/2025 3:25 AM EDT [facility] Basophils Absolute 0.06 0.00 - 0.10 10*3/uL LAB HEMATOLOGY METHOD 09/02/2025 3:25 AM EDT [facility] Immature Granulocytes Absolute 0.04 0.00 - 0.06 10*3/uL LAB HEMATOLOGY METHOD 09/02/2025 3:25 AM EDT [facility] Blood Venous blood specimen / Unknown Venipuncture / Unknown 09/02/2025 3:13 AM EDT 09/02/2025 3:18 AM EDT Narrative [facility] - 09/02/2025 3:25 AM EDT Therapeutic decision making should be based on absolute values, rather than percentages. 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 Progression of vasogenic edema surrounding the stable left frontal hematoma since CT exam of 08/28/2025 but relatively stable compared to the most recent MR exam from 08/30/2025. The mass effect results in partial compression of left lateral ventricle, partial effacement of sulci over the superior left cerebrum and a measurable svii-ni-mpszo midline shift (3 mm), minimally increased in the interval. No significant increase in subarachnoid hemorrhage in sulci over the superior left cerebrum. CRITICAL RESULT: No. COMMUNICATION: Per this written report. Drafted by Shahbaz Deras MD on 09/01/2025 11:07 AM Final report signed by Shahbaz Deras MD on 09/01/2025 11:17 AM Narrative 09/01/2025 11:17 AM EDT CLINICAL INDICATION: Stroke, follow up TECHNIQUE: Spiral axial CT images of the head were obtained without contrast administration. Total DLP (Dose-Length Product): 679.37 mGy.cm. Please note: The reported value represents the total of one or more individual components during the CT acquisition on this date and at this time, and as such, the same value may appear in more than one CT report depending on the interpreting/reporting physicians. COMPARISON: CT exam from August 28, 2025. MR exam dated August 30, 2025. FINDINGS: Diagnostic Quality: Adequate. There is slight increase in the effacement of sulci over the superior left frontal and parietal lobes. Subarachnoid hemorrhage within the sulci of the left vertex appears stable. Partial compression of left lateral ventricle is also slightly increased and there is 3 mm of puqg-eg-qixjv midline shift measured at the septum pellucidum (image 16, series 2). The hematoma in the posterior left frontal lobe appears stable in size measuring up to 42 x 41 mm in axial dimension (image 22, series 2). There is however an increase in the parenchymal hypodensity surrounding the hematoma and extends through the deep and subcortical white matter at the left vertex, compatible with worsened edema. Soft Tissues: No significant soft tissue swelling is present. Skull: There are no calvarial destructive lesions or fractures. Sinuses and Mastoids: Mild circumferential mucosal thickening in the posterior left ethmoid air cell and left sphenoid sinus. Small amount of frothy secretions also present in the left sphenoid sinus.. The patient is again status post left mastoidectomy. Partial opacification of right mastoid air cells. Procedure Note Shahbaz Deras MD - 09/01/2025 CLINICAL INDICATION: Stroke, follow up TECHNIQUE: Spiral axial CT images of the head were obtained without contrastadministration. Total DLP (Dose-Length Product): 679.37 mGy.cm. Please note: The reportedvalue represents the total of one or more individual components during theCT acquisition on this date and at this time, and as such, the same valuemay appear in more than one CT report depending on theinterpreting/reporting physicians. COMPARISON: CT exam from August 28, 2025. MR exam dated August 30, 2025. FINDINGS: Diagnostic Quality: Adequate. There is slight increase in the effacement of sulci over the superior leftfrontal and parietal lobes. Subarachnoid hemorrhage within the sulci ofthe left vertex appears stable. Partial compression of left lateralventricle is also slightly increased and there is 3 mm of zvfr-xk-xsemuvzvrgfs shift measured at the septum pellucidum (image 16, series 2). The hematoma in the posterior left frontal lobe appears stable in sizemeasuring up to 42 x 41 mm in axial dimension (image 22, series 2). Thereis however an increase in the parenchymal hypodensity surrounding thehematoma and extends through the deep and subcortical white matter at theleft vertex, compatible with worsened edema. Soft Tissues: No significant soft tissue swelling is present. Skull: There are no calvarial destructive lesions or fractures. Sinuses and Mastoids: Mild circumferential mucosal thickening in theposterior left ethmoid air cell and left sphenoid sinus. Small amount offrothy secretions also present in the left sphenoid sinus.. The patient isagain status post left mastoidectomy. Partial opacification of rightmastoid air cells. 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 Progression of vasogenic edema surrounding the stable left frontalhematoma since CT exam of 08/28/2025 but relatively stable compared to themost recent MR exam from 08/30/2025. The mass effect results in partialcompression of left lateral ventricle, partial effacement of sulci overthe superior left cerebrum and a measurable tpiy-zq-vexbt midline shift (3mm), minimally increased in the interval. No significant increase in subarachnoid hemorrhage in sulci over thesuperior left cerebrum. CRITICAL RESULT: No. COMMUNICATION: Per this written report. Drafted by Shahbaz Deras MD on 09/01/2025 11:07 AM Final report signed by Shahbaz Deras MD on 09/01/2025 11:17 AM us Tanika F Ali [employer] IMG CT PROCEDURES Final Result * Procalcitonin (09/01/2025 2:19 AM EDT) Procalcitonin, Plasma <0.06 <0.09 ng/mL 09/01/2025 11:[address] [facility] Blood Venous blood specimen / Unknown Venipuncture / Unknown 09/01/2025 2:19 AM EDT 09/01/2025 2:25 AM EDT Narrative [facility] - 09/01/2025 11:55 AM EDT Procalcitonin concentrations in healthy individuals are <0.09 ng/mL. Published data support the following interpretive risk assessment: An elevated procalcitonin result does not always indicate sepsis. Various non-infectious conditions are known to increase procalcitonin. Results should be considered in the context of clinical symptoms and other laboratory tests. Procalcitonin >2.0 ng/mL: Concentrations >2.0 ng/mL on the first day of ICU admission are associated with a higher risk of progression to severe sepsis and/or septic shock. The change in PCT over time may help predict 28 day mortality risk. Please consult [email or web address]-hhf-twgjhxwfum.Giftiki for more information. Test performed at [facility], [facility]. Tanika Cooney APRN LAB BLOOD ORDERABLES Final Res ult [facility] [address] [place] [address] * Magnesium (09/01/2025 2:19 AM EDT) Magnesium, Plasma 2.0 1.9 - 2.4 mg/dL 09/01/2025 2:55 AM EDT [facility] Blood Venous blood specimen / Unknown Venipuncture / Unknown 09/01/2025 2:19 AM EDT 09/01/2025 2:25 AM EDT Alfredo Richardson [employer] LAB BLOOD ORDERABLES Final Result [facility] [address] [place] [address] * (ABNORMAL) Comprehensive metabolic panel (09/01/2025 2:19 AM EDT) Glucose, Plasma 167(H) 74 - 99 mg/dL 09/01/2025 2:55 AM EDT [facility] BUN, Plasma 34(H) 7 - 21 mg/dL 09/01/2025 2:55 AM EDT [facility] Creatinine, Plasma 0.62 0.60 - 1.10 mg/dL 09/01/2025 2:55 AM EDT [facility] BUN/Creatinine Ratio 55 09/01/2025 2:55 AM EDT [facility] Sodium, Plasma 136 136 - 145 mmol/L 09/01/2025 2:55 AM EDT [facility] Potassium, Plasma 3.9 3.6 - 4.9 mmol/L 09/01/2025 2:55 AM EDT [facility] Chloride, Plasma 101 97 - 107 mmol/L 09/01/2025 2:55 AM EDT [facility] CO2, Plasma 23 22 - 29 mmol/L 09/01/2025 2:55 AM EDT [facility] Anion Gap 12 6 - 16 mmol/L 09/01/2025 2:55 AM EDT [facility] Total Calcium, Plasma 9.6 8.9 - 10.2 mg/dL 09/01/2025 2:55 AM EDT [facility] Total Protein 7.1 6.3 - 7.9 g/dL 09/01/2025 2:55 AM EDT [facility] Albumin, Plasma 4.1 3.5 - 5.2 g/dL 09/01/2025 2:55 AM EDT [facility] AST, Plasma 24 10 - 35 U/L 09/01/2025 2:55 AM EDT [facility] Comment:Hemolyzed, result ma y be falsely increased. ALT, Plasma 20 10 - 35 U/L 09/01/2025 2:55 AM EDT [facility] Alkaline Phosphatase, Plasma 108 46 - 142 U/L 09/01/2025 2:55 AM EDT [facility] Total Bilirubin, Plasma 0.8 0.2 - 1.1 mg/dL 09/01/2025 2:55 AM EDT [facility] eGFRcr 102.7 mL/min/1.7 3m*2 09/01/2025 2:55 AM EDT [facility] Comment:Reported eGFRcr in m L/min/1.73m2 is based the CKD-EPI 2020 equation that does not use a race coefficient. Blood Venous blood specimen / Unknown Venipuncture / Unknown 09/01/2025 2:19 AM EDT 09/01/2025 2:25 AM EDT [facility] BLOOD ORDERABLES Final Result [facility] [facility] [address] [place] [address] * (ABNORMAL) CBC W/O Differential (09/01/2025 2:19 AM EDT) WBC Count 12.80(H) 3.70 - 10.30 10*3/uL LAB HEMATOLOGY METHOD 09/01/2025 2:34 AM EDT [facility] RBC Count 4.57 3.90 - 5.20 10*6/uL LAB HEMATOLOGY METHOD 09/01/2025 2:34 AM EDT [facility] HGB 14.4 11.2 - 15.7 g/dL LAB HEMATOLOGY METHOD 09/01/2025 2:34 AM EDT [facility] HCT 42.5 34.0 - 45.0 % LAB HEMATOLOGY METHOD 09/01/2025 2:34 AM EDT [facility] Platelet Count 368 155 - 369 10*3/uL LAB HEMATOLOGY METHOD 09/01/2025 2:34 AM EDT [facility] MCV 93 79 - 98 fL LAB HEMATOLOGY METHOD 09/01/2025 2:34 AM EDT [facility] MCH 31.5 26.0 - 32.0 pg LAB HEMATOLOGY METHOD 09/01/2025 2:34 AM EDT [facility] MCHC 33.9 30.7 - 35.5 g/dL LAB HEMATOLOGY METHOD 09/01/2025 2:34 AM EDT [facility] RDW 11.8 11.5 - 14.5 % LAB HEMATOLOGY METHOD 09/01/2025 2:34 AM EDT [facility] MPV 8.5(L) 8.8 - 12.5 fL LAB HEMATOLOGY METHOD 09/01/2025 2:34 AM EDT [facility] nRBC 0.0 <=0.0 per 100 WBCs LAB HEMATOLOGY METHOD 09/01/2025 2:34 AM EDT [facility] Blood Venous blood specimen / Unknown Venipuncture / Unknown 09/01/2025 2:19 AM EDT 09/01/2025 2:25 AM EDT Alrfedo Richardson [facility] BLOOD ORDERABLES Final Result Performing Organization Address [facility] Co de Phone Number [facility] [address] [place] [address] * Urinalysis Microscopic Examination (08/31/2025 4:02 PM EDT) Urine Urine specimen obtained by clean catch procedure / Unknown Non-blood Collection / Unknown 08/31/2025 4:02 PM EDT 08/31/2025 4:33 PM EDT Alfredo Richardson [facility] URINE ORDERABLES Final Result Performing Organization Address [facility] Co de Phone Number [facility] [address] [place] [address] * (ABNORMAL) Urinalysis with reflex microscopic (Culture NOT Included) (08/31/2025 4:02 PM EDT) Color, Urine Yellow LAB URINALYSIS - AUTOMATED METHOD 08/31/2025 4:54 PM EDT [facility] Clarity, Urine Clear LAB URINALYSIS - AUTOMATED METHOD 08/31/2025 4:54 PM EDT [facility] Spec [place], Urine 1.021 1.005 - 1.030 LAB URINALYSIS - AUTOMATED METHOD 08/31/2025 4:54 PM EDT [facility] pH, Urine 6.5 5.0 - 8.0 LAB URINALYSIS - AUTOMATED METHOD 08/31/2025 4:54 PM EDT [facility] Protein, Urine Trace(A) Negative mg/dL LAB URINALYSIS - AUTOMATED METHOD 08/31/2025 4:54 PM EDT [facility] Glucose, Urine Negative Negative mg/dL LAB URINALYSIS - AUTOMATED METHOD 08/31/2025 4:54 PM EDT [facility] Ketones, Urine Negative Negative mg/dL LAB URINALYSIS - AUTOMATED METHOD 08/31/2025 4:54 PM EDT [facility] Blood, Urine Negative Negative LAB URINALYSIS - AUTOMATED METHOD 08/31/2025 4:54 PM EDT [facility] Bilirubin, Urine Negative Negative LAB URINALYSIS - AUTOMATED METHOD 08/31/2025 4:54 PM EDT [facility] Urobilinogen, Urine 1.0 0.2 to 1.0 mg/dL LAB URINALYSIS - AUTOMATED METHOD 08/31/2025 4:54 PM EDT [facility] Leukocytes, Urine Trace(A) Negative LAB URINALYSIS - AUTOMATED METHOD 08/31/2025 4:54 PM EDT [facility] Nitrite, Urine Negative Negative LAB URINALYSIS - AUTOMATED METHOD 08/31/2025 4:54 PM EDT [facility] RBC, Urine 1 0 to 3 /HPF LAB URINALYSIS - AUTOMATED METHOD 08/31/2025 4:54 PM EDT [facility] WBC, Urine 0 - 5 0 to 5 /HPF LAB URINALYSIS - AUTOMATED METHOD 08/31/2025 4:54 PM EDT [facility] Squamous Epithelial Cells 6 - 10(A) 0 to 5 /HPF LAB URINALYSIS - AUTOMATED METHOD 08/31/2025 4:54 PM EDT [facility] Hyaline Casts 0 - 2 0 to 5 /LPF LAB URINALYSIS - AUTOMATED METHOD 08/31/2025 4:54 PM EDT [facility] Bacteria, Urine Present Negative LAB URINALYSIS - AUTOMATED METHOD 08/31/2025 4:54 PM EDT [facility] Urine Urine specimen obtained by clean catch procedure / Unknown Non-blood Collection / Unknown 08/31/2025 4:02 PM EDT 08/31/2025 4:33 PM EDT Alfredo S Richardson [employer] LAB URINE ORDERABLES Final Result [facility] [address] [place] [address] * ECHO, ADULT TRANSTHORACIC COMPLETE (08/31/2025 11:52 AM EDT) BSA 1.88 m2 [facility] Height 172.7 [facility] Weight 74.8 [facility] LVIDd 44 mm [facility] LVIDs 29 mm [facility] IVSd 10 mm [facility] LVPWd 10 mm [facility] LV MASS(C)D 147 g [facility] CV ECHO LV MASS INDEX 78 g/m2 [facility] LV RWT 0.45 mm [facility] LV EDV(MOD-4ch) 54 mL [facility] LV ESV(MOD4ch) 19 mL [facility]SC[facility] EF(MOD-sp4) 65 % [facility] LV EDV(MOD-2ch) 53 mL [facility] LV ESV(MOD2ch) 21 mL [facility]SCV EF(MOD-sp2) 60 % [facility]SC[facility] EDV(MOD-bp) 54 mL [facility] ESV(MOD-bp) 20 mL [facility]SCV EF(MOD-bp) 63 % [facility] LVOT diam 20 mm [facility] LVOT AREA 3.1 cm2 [facility] LV V1 VTI 25.4 cm [facility] SV(LVOT) 80 mL [facility] MV E Vmax 68.8 cm/s [facility] MV A Vmax 99.5 cm/s [facility] MV E/A 0.7 cm/s [facility] LA dimension 31 mm [facility] RV base 31 mm [facility] RV Mid 25 mm [facility] RV Length 63 mm [facility] RV s' Angel 20.0 cm/s [facility] TAPSE 18 mm [facility] PA acc time 120 msec [facility] mean PAP 25 mmHg [facility] LV V1 Vmax 118.0 cm/s [facility] Ao V2 VTI 27.7 cm [facility] Ao mean PG 3 mmHg [facility] Ao V2 Vmax 130.0 cm/s [facility] Ao max PG 7 mmHg [facility] AV VTI Index 0.92 [facility] MARCY(I,D) 2.9 cm2 [facility] MARCY(VTI)/BSA_ph l 1.5 cm2/m2 [facility] MV V2 VTI 30.0 cm [facility] MV MG 2 mmHg [facility] MV V2 max 99.6 cm/s [facility] MV max PG 4 mmHg [facility] MV dec slope 361 cm/s2 [facility] MV dec time 210 ms [facility] MV P1/2t 61 ms [facility] MVA(P1/2t) 3.6 cm2 [facility] Ao Root Diam 31 mm [facility] Asc Ao Diam 34 mm [facility] PA AR(ACCEL) 26.8 mmHg [facility] LV mean PG 3.0 mmHG [facility] LV V1 mean 78.9 cm/sec [facility] LV max PG 5.6 mmHg [facility] LVLs ap2 5.6 mm [facility] AV-pr VR 0.9 [facility] Ao V2 mean 85.7 cm/s [facility] LAV(MOD-4ch) 34 mL [facility] LAV(MOD-bp) Indexed 19 mL/m2 [facility] LAV(MOD-2ch) 36 mL [facility] RA MOD 4Ch 26 mL [facility] PAKO 14 mL/m2 [facility] LV Lat e' Velocity 8.2 cm/s [facility] LV Sept e' Angel 7.5 cm/s [facility] Lat E/e' 8.4 [facility] Sep E/e' 9.2 [facility] Avg E/e' 8.8 [facility] Anatomical Region Laterality Modality Echocardiography Narrative 08/31/2025 1:03 PM EDT Left Ventricle: The left ventricle is normal size. There is concentric remodeling. The left ventricular systolic function is normal. The LVEF as measured by biplane volume is 63%. The diastolic function is normal. No regional wall motion abnormalities are seen. Right Ventricle: The right ventricle is normal in size. The right ventricular systolic function is normal. Pericardium: No pericardial effusion. Limited bubble study due to poor image quality demonstrates no evidence of large intracardiac or intrapulmonary shunt. There is no recent study available for direct [id number] comparison. Left Ventricle The left ventricle is normal size. There is concentric remodeling. The left ventricular systolic function is normal. The LVEF as measured by biplane volume is 63%. The diastolic function is normal. No regional wall motion abnormalities are seen. Right Ventricle The right ventricle is normal in size. The right ventricular systolic function is normal. Unable to estimate the right ventricular systolic pressure (RVSP) due to inadequate TR signal. Left Atrium The left atrial size is normal with an indexed volume of 16-34 mL/m2. Intravenous injection of agitated saline demonstrates no evidence of intracardiac or intrapulmonary shunt. Right Atrium The right atrial volume index is normal (<30mL/m2). IVC/SVC Based on the IVC size and respiratory variation, the estimated right atrial pressure is 3mmHg. Mitral Valve The leaflets appear thickened. There is trace mitral regurgitation. There is no mitral stenosis. Tricuspid Valve The tricuspid valve is normal in appearance. There is trace tricuspid regurgitation. There is no tricuspid stenosis. Aortic Valve The aortic valve appears to be trileaflet. There is mild aortic valve regurgitation. There is no hemodynamically significant valvular aortic stenosis. Pulmonic Valve The pulmonic valve is grossly normal. There is trace pulmonic regurgitation. There is no pulmonic stenosis. Pericardium No pericardial effusion. Great Vessels The aortic root is normal in size. The sinus of Valsalva (aortic root) diameter is 31 mm by leading edge to leading edge method. In the maximally visualized portion, the ascending aorta appears normal in size. The main pulmonary artery is normal in size. Study Details A complete transthoracic echocardiogram using two-dimensional (2D), m-mode, color and spectral flow Doppler imaging was performed. During the study the apical, parasternal and subcostal view was captured. Saline (bubble) contrast was used during the study. Overall the study quality was adequate. Height: 172.7 cm. Weight: 74.8 kg. BSA: 1.88 m2. The heart rhythm during this exam was most suggestive of a sinus rhythm. Study Recommendation There is no recent study available for direct [id number] comparison. us Rylee Gupta MD CV ECHO PROCEDURES Final Resul t * (ABNORMAL) CBC W/O Differential (08/31/2025 1:30 AM EDT) WBC Count 13.01(H) 3.70 - 10.30 10*3/uL LAB HEMATOLOGY METHOD 08/31/2025 1:49 AM EDT [facility] RBC Count 4.58 3.90 - 5.20 10*6/uL LAB HEMATOLOGY METHOD 08/31/2025 1:49 AM EDT [facility] HGB 14.5 11.2 - 15.7 g/dL LAB HEMATOLOGY METHOD 08/31/2025 1:49 AM EDT [facility] HCT 42.4 34.0 - 45.0 % LAB HEMATOLOGY METHOD 08/31/2025 1:49 AM EDT [facility] Platelet Count 375(H) 155 - 369 10*3/uL LAB HEMATOLOGY METHOD 08/31/2025 1:49 AM EDT [facility] MCV 93 79 - 98 fL LAB HEMATOLOGY METHOD 08/31/2025 1:49 AM EDT [facility] MCH 31.7 26.0 - 32.0 pg LAB HEMATOLOGY METHOD 08/31/2025 1:49 AM EDT [facility] MCHC 34.2 30.7 - 35.5 g/dL LAB HEMATOLOGY METHOD 08/31/2025 1:49 AM EDT [facility] RDW 11.9 11.5 - 14.5 % LAB HEMATOLOGY METHOD 08/31/2025 1:49 AM EDT [facility] MPV 8.5(L) 8.8 - 12.5 fL LAB HEMATOLOGY METHOD 08/31/2025 1:49 AM EDT [facility] nRBC 0.0 <=0.0 per 100 WBCs LAB HEMATOLOGY METHOD 08/31/2025 1:49 AM EDT [facility] Blood Venous blood specimen / Unknown Venipuncture / Unknown 08/31/2025 1:30 AM EDT 08/31/2025 1:42 AM EDT us Claudia Morales APRN LAB BLOOD ORDERABLES Final Result [facility] [address] [place] [address] * (ABNORMAL) Basic Metabolic Panel, Plasma (08/31/2025 1:30 AM EDT) Glucose, Plasma 205(H) 74 - 99 mg/dL 08/31/2025 2:13 AM EDT [facility] BUN, Plasma 36(H) 7 - 21 mg/dL 08/31/2025 2:13 AM EDT [facility] Creatinine, Plasma 0.60 0.60 - 1.10 mg/dL 08/31/2025 2:13 AM EDT [facility] BUN/Creatinine Ratio 60 08/31/2025 2:13 AM EDT [facility] Sodium, Plasma 137 136 - 145 mmol/L 08/31/2025 2:13 AM EDT [facility] Potassium, Plasma 3.7 3.6 - 4.9 mmol/L 08/31/2025 2:13 AM EDT [facility] Chloride, Plasma 102 97 - 107 mmol/L 08/31/2025 2:13 AM EDT [facility] CO2, Plasma 23 22 - 29 mmol/L 08/31/2025 2:13 AM EDT [facility] Anion Gap 12 6 - 16 mmol/L 08/31/2025 2:13 AM EDT [facility] Total Calcium, Plasma 9.4 8.9 - 10.2 mg/dL 08/31/2025 2:13 AM EDT [facility] eGFRcr 103.5 mL/min/1.7 3m*2 08/31/2025 2:13 AM EDT [facility] Comment:Reported eGFRcr in m L/min/1.73m2 is based the CKD-EPI 2020 equation that does not use a race coefficient. Blood Venous blood specimen / Unknown Venipuncture / Unknown 08/31/2025 1:30 AM EDT 08/31/2025 1:42 AM EDT us Bridgett Colindres [employer], DNP LAB BLOOD ORDERABLES Leia l Result [facility] [address] [place] [address] * Magnesium, Plasma (08/31/2025 1:30 AM EDT) Magnesium, Plasma 1.9 1.9 - 2.4 mg/dL 08/31/2025 2:13 AM EDT [facility] Blood Venous blood specimen / Unknown Venipuncture / Unknown 08/31/2025 1:30 AM EDT 08/31/2025 1:42 AM EDT Bridgett Colindres [employer], DNP LAB BLOOD ORDERABLES Leia l Result Performing Organization Address [facility] Co de Phone Number [facility] [address] [place] [address] * Phosphorus, Plasma (08/31/2025 1:30 AM EDT) Phosphorus, Plasma 2.9 2.5 - 4.5 mg/dL 08/31/2025 2:13 AM EDT [facility] Blood Venous blood specimen / Unknown Venipuncture / Unknown 08/31/2025 1:30 AM EDT 08/31/2025 1:42 AM EDT Bridgett Colindres APRN, DNP LAB BLOOD ORDERABLES Leia l Result Performing Organization Address [facility] Co de Phone Number [facility] [address] [place] [address] * FL Modified Barium Swallow (08/30/2025 10:36 AM EDT) Anatomical Region Laterality Modality Esophagus, stomach and duodenum Digital Radiography Impressions 08/30/2025 12:08 PM EDT There is aspiration with nectar consistency. There is trace transient penetration with thin consistency. Please see separate note by Speech therapy team for dietary recommendations. CRITICAL RESULT: No. COMMUNICATION: Per this written report. By electronically signing this report, I, the attending physician, attest that I have personally reviewed the images/data for the above examination(s) and agree with the final edited report. Drafted by Claude Mercedes MD on 08/30/2025 11:25 AM Final report signed by Xander Banks MD on 08/30/2025 12:08 PM Narrative 08/30/2025 12:08 PM EDT CLINICAL INDICATION: dysphagia TECHNIQUE: Modified barium swallow was performed utilizing video fluoroscopy in conjunction with the Speech Pathology team. The patient ingested barium media of varying consistencies. Fluoroscopy Time: 1.5 minutes. COMPARISON: None. FINDINGS: Swallowing: Thin consistency (IDDSI 0): There is no aspiration. There is trace transient penetration with sequential swallowing by the cup. Burgin consistency (IDDSI 2): There is aspiration with delayed cough reflex with a single swallowing by straw. There is no demonstration. Pudding consistency (IDDSI 4): There is no aspiration. There is no penetration Regular cracker consistency (IDDSI 7): There is no penetration. There is no aspiration. Other: Procedure Note Xander Banks MD - 08/30/2025 CLINICAL INDICATION: dysphagia TECHNIQUE: Modified barium swallow was performed utilizing video fluoroscopy inconjunction with the Speech Pathology team. The patient ingested bariummedia of varying consistencies. Fluoroscopy Time: 1.5 minutes. COMPARISON: None. FINDINGS: Swallowing: Thin consistency (IDDSI 0): There is no aspiration. There is tracetransient penetration with sequential swallowing by the cup. Burgin consistency (IDDSI 2): There is aspiration with delayed coughreflex with a single swallowing by straw. There is no demonstration. Pudding consistency (IDDSI 4): There is no aspiration. There is nopenetration Regular cracker consistency (IDDSI 7): There is no penetration. There isno aspiration. Other: IMPRESSION: There is aspiration with nectar consistency. There is trace transientpenetration with thin consistency. Please see separate note by Speech therapy team for dietaryrecommendations. CRITICAL RESULT: No. COMMUNICATION: Per this written report. By electronically signing this report, I, the attending physician, attestthat I have personally reviewed the images/data for the aboveexamination(s) and agree with the final edited report. Drafted by Claude Mercedes MD on 08/30/2025 11:25 AM Final report signed by Xander Banks MD on 08/30/2025 12:08 PM Claudia Morales [employer] IMG FLUOROSCOPY PROCEDURES Final Result * MR Head wo IV Contrast (08/30/2025 5:10 AM EDT) Anatomical Region Laterality Modality Head Magnetic Resonan ce Addenda Addendum by Halina Bauer MD on 08/30/2025 8:01 AM EDT Addendum: ADDENDUM: The routine coronal T2-weighted series could not be obtained as the patient could no longer tolerate imaging and the study was terminated. Drafted by Halina Bauer MD on 08/30/2025 8:01 AM Final report signed by Halina Bauer MD on 08/30/2025 8:01 AM Impressions 08/30/2025 7:47 AM EDT Redemonstration of the 4 cm hematoma in the left parietal lobe. Subarachnoid hemorrhage adjacent to the hematoma. Redemonstration of intraventricular hemorrhage. Mild amount of cortical or sulcal FLAIR hyperintense signal in the posterior right temporal lobe which may represent a small amount of subarachnoid hemorrhage although subacute infarction, encephalitis, and other etiologies are not excluded. Few scattered foci of restricted diffusion in the cerebral hemispheres which could represent acute infarcts or other lesions. If there is clinical concern for lesions other than infarcts, postcontrast imaging or follow-up imaging is suggested. Mass effect upon the left lateral ventricle and mild rightward midline shift secondary to the left parietal acute hematoma. CRITICAL RESULT: No. COMMUNICATION: Per this written report. Drafted by Halina Bauer MD on 08/30/2025 7:36 AM Final report signed by Halina Bauer MD on 08/30/2025 7:47 AM Narrative 08/30/2025 7:47 AM EDT CLINICAL INDICATION: Stroke, follow-up. TECHNIQUE: Multiplanar multiecho sequences were performed through the brain utilizing T1 and T2 weighting, as well as either axial susceptibility weighted or gradient echo sequences, and axial diffusion weighted images. Imaging was performed without contrast administration. COMPARISON: CT 08/28/2025 FINDINGS: Diagnostic Quality: Motion degraded study. Heterogeneous signal with corresponding susceptibility artifact, centered in the left parietal lobe, corresponds to the known acute hematoma. Enhancement is approximately 4 cm in diameter again. There is surrounding parenchymal hypodensity compatible with edema, with some areas of restricted diffusion which are nonspecific although could be related to hemorrhage, infarction, and other etiologies. T1 shortening at the hematoma is compatible with blood products. There are a few foci of punctate scattered restricted diffusion, for example in the medial right occipital lobe, left occipital lobe in image #11 of series 7, and in the left frontal lobe, image #17 of series 7. This signal could represent acute infarcts although other lesions are not excluded. There is sulcal or cortical FLAIR hyperintense signal in the posterior right temporal lobe or sylvian fissure, image #13 of series 9. This finding could be related to subarachnoid hemorrhage, subacute infarction, encephalitis, and other etiologies. Sulcal FLAIR hyperintense signal in the left frontal lobe anterior to the hematoma most likely represents subarachnoid hemorrhage. There is sulcal effacement and mass effect upon the left lateral ventricle secondary to the left parietal lobe hematoma. There is mild rightward midline shift. Basilar cisterns are patent. A mild amount of periventricular FLAIR hyperintense signal is nonspecific. There is susceptibility artifact mostly along the dependent portions of the lateral ventricles corresponding to intraventricular hemorrhage. Low T1 marrow signal in the calvaria, which could be correlated for anemia, metabolic abnormality, other etiologies. Vascular Flow Voids: The expected major arterial flow voids at the skull base are present. Paranasal Sinuses and Mastoid Air Cells: Mild mucosal thickening in the sphenoid sinus possible retention cyst. Mild amount of mucosal thickening in the left ethmoid air cells. Mild amount of fluid in the right mastoid air cells. Status post left mastoidectomy. Orbits: No definite masses within the limitations of the study. Extracranial Findings: None. Craniocervical Junction and Skull Base: No tonsillar ectopia or mass is present. Procedure Note Halina Bauer MD - 08/30/2025 CLINICAL INDICATION: Stroke, follow-up. TECHNIQUE: Multiplanar multiecho sequences were performed through the brain utilizingT1 and T2 weighting, as well as either axial susceptibility weighted orgradient echo sequences, and axial diffusion weighted images. Imaging wasperformed without contrast administration. COMPARISON: CT 08/28/2025 FINDINGS: Diagnostic Quality: Motion degraded study. Heterogeneous signal with corresponding susceptibility artifact, centeredin the left parietal lobe, corresponds to the known acute hematoma.Enhancement is approximately 4 cm in diameter again. There is surroundingparenchymal hypodensity compatible with edema, with some areas ofrestricted diffusion which are nonspecific although could be related tohemorrhage, infarction, and other etiologies. T1 shortening at thehematoma is compatible with blood products. There are a few foci of punctate scattered restricted diffusion, forexample in the medial right occipital lobe, left occipital lobe in image#11 of series 7, and in the left frontal lobe, image #17 of series 7. Thissignal could represent acute infarcts although other lesions are notexcluded. There is sulcal or cortical FLAIR hyperintense signal in the posteriorright temporal lobe or sylvian fissure, image #13 of series 9. Thisfinding could be related to subarachnoid hemorrhage, subacute infarction,encephalitis, and other etiologies. Sulcal FLAIR hyperintense signal inthe left frontal lobe anterior to the hematoma most likely representssubarachnoid hemorrhage. There is sulcal effacement and mass effect upon the left lateral ventriclesecondary to the left parietal lobe hematoma. There is mild rightwardmidline shift. Basilar cisterns are patent. A mild amount ofperiventricular FLAIR hyperintense signal is nonspecific. There is susceptibility artifact mostly along the dependent portions ofthe lateral ventricles corresponding to intraventricular hemorrhage. Low T1 marrow signal in the calvaria, which could be correlated foranemia, metabolic abnormality, other etiologies. Vascular Flow Voids: The expected major arterial flow voids at the skullbase are present. Paranasal Sinuses and Mastoid Air Cells: Mild mucosal thickening in thesphenoid sinus possible retention cyst. Mild amount of mucosal thickeningin the left ethmoid air cells. Mild amount of fluid in the right mastoidair cells. Status post left mastoidectomy. Orbits: No definite masses within the limitations of the study. Extracranial Findings: None. Craniocervical Junction and Skull Base: No tonsillar ectopia or mass ispresent. IMPRESSION: Redemonstration of the 4 cm hematoma in the left parietal lobe.Subarachnoid hemorrhage adjacent to the hematoma. Redemonstration ofintraventricular hemorrhage. Mild amount of cortical or sulcal FLAIR hyperintense signal in theposterior right temporal lobe which may represent a small amount ofsubarachnoid hemorrhage although subacute infarction, encephalitis, andother etiologies are not excluded. Few scattered foci of restricted diffusion in the cerebral hemisphereswhich could represent acute infarcts or other lesions. If there is clinical concern for lesions other than infarcts, postcontrastimaging or follow-up imaging is suggested. Mass effect upon the left lateral ventricle and mild rightward midlineshift secondary to the left parietal acute hematoma. CRITICAL RESULT: No. COMMUNICATION: Per this written report. Drafted by Halina Bauer MD on 08/30/2025 7:36 AM Final report signed by Halina Bauer MD on 08/30/2025 7:47 AM us Sergey Stern MD IMG MRI PROCEDURES Edited Re sult - Final * TSH Reflex FT4 (08/30/2025 3:34 AM EDT) Thyroid Stimulating Hormone, Plasma 1.44 0.40 - 4.20 uIU/mL 08/30/2025 8:29 AM EDT [facility] Blood Venous blood specimen / Unknown Venipuncture / Unknown 08/30/2025 3:34 AM EDT 08/30/2025 4:11 AM EDT Dora Villegas MD LAB BLOOD ORDERABLES Final Result [facility] [address] [place] [address] * (ABNORMAL) Lipid panel (08/30/2025 3:34 AM EDT) Cholesterol, Plasma 149 <200 mg/dL 08/30/2025 8:29 AM EDT [facility] Comment: Cholesterol Reference Range (age >17 years): Desirable <200 mg/dL Borderline 200 to 239 mg/dL Undesirable >239 mg/dL HDL 42(L) >=50 mg/dL 08/30/2025 8:29 AM EDT [facility] Comment: HDL Cholesterol Reference Ranges (age >17 years): Female, acceptable > or = 50 mg/dL Male, acceptable > or = 40 mg/dL Triglycerides, Plasma 172(H) <150 mg/dL 08/30/2025 8:29 AM EDT [facility] Comment: Triglyceride Reference Range (age >17 years): Desirable: <150 mg/dL Borderline high: 150 to 199 mg/dL High: 200 to 499 mg/dL Very high: >499 mg/dL Increased risk of pancreatitis: >1000 mg/dL Cholesterol/HDL Ratio 4 08/30/2025 8:29 AM EDT [facility] LDL, Calculated 78 <100 mg/dL 8:29 AM EDT [facility] Comment: LDL Cholesterol Reference Range (age >17 years): Optimal: <100 mg/dL Near or above optimal: 100 - 129 mg/dL Borderline high: 130 - 159 mg/dL High: 160 - 189 mg/dL Very high: >189 mg/dL LDL Cholesterol Reference Range (age <18 years): Desirable: <110 mg/dL Borderline: 110 - 129 mg/dL Undesirable: >130 mg/dL LDL Cholesterol is calculated using the Villarreal/NIH equation. Fasting greater than or equal to 12 hours? Unknown 08/30/2025 8:29 AM EDT [facility] Blood Venous blood specimen / Unknown Venipuncture / Unknown 08/30/2025 3:34 AM EDT 08/30/2025 4:11 AM EDT Dora Villegas MD LAB BLOOD ORDERABLES Final Result Performing Organization Address [facility] Co de Phone Number [facility] [address] [place] [address] * (ABNORMAL) Hemoglobin A1c (08/30/2025 3:34 AM EDT) Hemoglobin A1c 6.2(H) <5.7 % 08/30/2025 10:54 AM EDT [facility] Blood Venous blood specimen / Unknown Venipuncture / Unknown 08/30/2025 3:34 AM EDT 08/30/2025 4:13 AM EDT Narrative [facility] - 08/30/2025 10:54 AM EDT HA1C Interpretive Data: Diagnosis of Diabetes: Diabetic > or = 6.5% Pre-diabetic 5.7 to 6.4% Non-diabetic < or = 5.6% Glycemic Targets for Type I and Type II Diabetics: Non- Adults <7.0% Adults <6.0% Children and Adolescents <7.5% Source: [place] [employer]. Standards of medical care in diabetes,2017. Diabetes Care.2017:40 (suppl 1):S1-S135. us Sergey Stern MD LAB BLOOD ORDERABLES Final R esult Performing Organization Address [facility]/ZIP Co de Phone Number [facility] [address] [place] [address] * CBC W/O Differential (08/30/2025 3:34 AM EDT) WBC Count 9.77 3.70 - 10.30 10*3/uL LAB HEMATOLOGY METHOD 08/30/2025 4:20 AM EDT [facility] RBC Count 4.10 3.90 - 5.20 10*6/uL LAB HEMATOLOGY METHOD 08/30/2025 4:20 AM EDT [facility] HGB 13.1 11.2 - 15.7 g/dL LAB HEMATOLOGY METHOD 08/30/2025 4:20 AM EDT [facility] HCT 38.7 34.0 - 45.0 % LAB HEMATOLOGY METHOD 08/30/2025 4:20 AM EDT [facility] Platelet Count 345 155 - 369 10*3/uL LAB HEMATOLOGY METHOD 08/30/2025 4:20 AM EDT [facility] MCV 94 79 - 98 fL LAB HEMATOLOGY METHOD 08/30/2025 4:20 AM EDT [facility] MCH 32.0 26.0 - 32.0 pg LAB HEMATOLOGY METHOD 08/30/2025 4:20 AM EDT [facility] MCHC 33.9 30.7 - 35.5 g/dL LAB HEMATOLOGY METHOD 08/30/2025 4:20 AM EDT [facility] RDW 11.9 11.5 - 14.5 % LAB HEMATOLOGY METHOD 08/30/2025 4:20 AM EDT [facility] MPV 9.0 8.8 - 12.5 fL LAB HEMATOLOGY METHOD 08/30/2025 4:20 AM EDT [facility] nRBC 0.0 <=0.0 per 100 WBCs LAB HEMATOLOGY METHOD 08/30/2025 4:20 AM EDT [facility] Blood Venous blood specimen / Unknown Venipuncture / Unknown 08/30/2025 3:34 AM EDT 08/30/2025 4:13 AM EDT us Claudia Morales APRN LAB BLOOD ORDERABLES Final Result [facility] [address] [place] [address] * (ABNORMAL) Basic Metabolic Panel, Plasma (08/30/2025 3:34 AM EDT) Glucose, Plasma 143(H) 74 - 99 mg/dL 08/30/2025 4:41 AM EDT [facility] BUN, Plasma 35(H) 7 - 21 mg/dL 08/30/2025 4:41 AM EDT [facility] Creatinine, Plasma 0.67 0.60 - 1.10 mg/dL 08/30/2025 4:41 AM EDT [facility] BUN/Creatinine Ratio 52 08/30/2025 4:41 AM EDT [facility] Sodium, Plasma 139 136 - 145 mmol/L 08/30/2025 4:41 AM EDT [facility] Potassium, Plasma 4.1 3.6 - 4.9 mmol/L 08/30/2025 4:41 AM EDT [facility] Chloride, Plasma 106 97 - 107 mmol/L 08/30/2025 4:41 AM EDT [facility] CO2, Plasma 23 22 - 29 mmol/L 08/30/2025 4:41 AM EDT [facility] Anion Gap 10 6 - 16 mmol/L 08/30/2025 4:41 AM EDT [facility] Total Calcium, Plasma 9.8 8.9 - 10.2 mg/dL 08/30/2025 4:41 AM EDT [facility] eGFRcr 100.8 mL/min/1.7 3m*2 08/30/2025 4:41 AM EDT [facility] Comment:Reported eGFRcr in m L/min/1.73m2 is based the CKD-EPI 2020 equation that does not use a race coefficient. Blood Venous blood specimen / Unknown Venipuncture / Unknown 08/30/2025 3:34 AM EDT 08/30/2025 4:11 AM EDT us Bridgett Colindres [employer]T DRIVER, DNP LAB BLOOD ORDERABLES Leia l Result [facility] [address] [place] [address] * Magnesium, Plasma (08/30/2025 3:34 AM EDT) Magnesium, Plasma 2.1 1.9 - 2.4 mg/dL 08/30/2025 4:41 AM EDT [facility] Blood Venous blood specimen / Unknown Venipuncture / Unknown 08/30/2025 3:34 AM EDT 08/30/2025 4:11 AM EDT Bridgett Colindres APRN, DNP LAB BLOOD ORDERABLES Leia l Result Performing Organization Address [facility] Co de Phone Number [facility] [address] [place] [address] * Phosphorus, Plasma (08/30/2025 3:34 AM EDT) Phosphorus, Plasma 2.8 2.5 - 4.5 mg/dL 08/30/2025 4:41 AM EDT [facility] Blood Venous blood specimen / Unknown Venipuncture / Unknown 08/30/2025 3:34 AM EDT 08/30/2025 4:11 AM EDT Bridgett Colindres APRN, MARIANA LAB BLOOD ORDERABLES Leia l Result Performing Organization Address [facility] de Phone Number [facility] [address] [place] [address] * XR Abdomen 1 View (08/29/2025 6:50 PM EDT) Anatomical Region Laterality Modality Body Digital Radiogra phy Impressions 08/29/2025 7:42 PM EDT No suspicious retained metallic foreign bodies. CRITICAL RESULT: No. COMMUNICATION: Per this written report. Drafted by Queta Jane MD on 08/29/2025 7:41 PM Final report signed by Queta Jane MD on 08/29/2025 7:42 PM Narrative 08/29/2025 7:42 PM EDT CLINICAL INDICATION: MRI clearance TECHNIQUE: Supine radiograph of the abdomen. COMPARISON: None. FINDINGS: Fusion instrumentation in the lumbar spine. Surgical clips in the right upper quadrant. Enteric tube tip overlies peripyloric region. Lung bases are clear. The bowel gas pattern is nonobstructive. Procedure Note Queta Jane MD - 08/29/2025 CLINICAL INDICATION: MRI clearance TECHNIQUE: Supine radiograph of the abdomen. COMPARISON: None. FINDINGS: Fusion instrumentation in the lumbar spine. Surgical clips in the rightupper quadrant. Enteric tube tip overlies peripyloric region. Lung basesare clear. The bowel gas pattern is nonobstructive. IMPRESSION: No suspicious retained metallic foreign bodies. CRITICAL RESULT: No. COMMUNICATION: Per this written report. Drafted by Queta Jane MD on 08/29/2025 7:41 PM Final report signed by Queta Jane MD on 08/29/2025 7:42 PM Sergey Stern MD IMG XR PROCEDURES Final Resu lt * AR CRITICAL CARE, E/M 30-74 MINUTES (08/29/2025 12:00 PM EDT) Narrative Claudia Morales APRN - 08/29/2025 12:00 PM EDT Claudia Morales APRN 08/29/2025 12:04 PM Critical Care Performed by: Claudia Morales APRN Authorized by: Claudia Morales APRN Critical care provider statement: Critical care time (minutes): 38 Critical care time was exclusive of: Separately billable procedures and treating other patients Critical care was time spent personally by me on the following activities: Development of treatment plan with patient or surrogate, ordering and performing treatments and interventions, discussions with consultants, ordering and review of laboratory studies, discussions with primary provider, ordering and review of radiographic studies, evaluation of patient's response to treatment, review of old charts, examination of patient and obtaining history from patient or surrogate Claudia Morales APRN IN CLINIC/BEDSIDE ORDERABL ES Final Result * IR Angiogram Carotid Cerebral Bilateral (08/29/2025 11:56 AM EDT) Anatomical Region Laterality Modality Neck, Head Bilateral X-Ray Angiograph y Impressions 08/30/2025 5:09 PM EDT 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 No evidence of arteriovenous malformation or fistula. COMMUNICATION: Results were communicated to the patient. Preliminary report signed by Rylee Gupta on 08/29/2025 12:19 PM By electronically signing this report, I, the attending physician, attest that I was present for the entire procedure(s) and agree with the final edited report. Drafted by Rylee Gupta on 08/29/2025 12:11 PM Final report signed by Jw Ramirez on 08/30/2025 5:09 PM Narrative 08/30/2025 5:09 PM EDT CLINICAL INDICATION: This patients 60 y.o. F w/ PMHx of Hypertension, C4-C5 spinal fusion anterior approach (08/26) presented with right-sided weakness and right- sided facial droop giving a baseline NIHSS of 13. CTH IPH in the posterior left frontal lobe w/ ass. SAH. CTA no vascular malformation . The patient is here today for cerebral angiogram to better evaluate cerebral vasculature. PRE-OP EVALUATION: The patient's preoperative neurological exam demonstrated the following findings: As per chart. DATE: 08/29/2025 11:29 AM EXAM: Diagnostic Cerebral Angiogram COMPARISON:CTA head and neck 08/27/2025 SHADE BANDER: Jw Ramirez MD SECONDARY [employer]OR SERVICES COORDINATOR: Rylee Gupta MD FLUORO TIME: 16 minutes FLUORO DOSE: 701 mGy Contrast: Omnipaque 300 [id number] cc Anesthesia: General Anesthesia Medications: Versed, Fentanyl, 0.25% Bupivicaine, Nitroglycerin and Verapamil TECHNIQUE:The procedure was explained in its entirety to the patient's family by Dr. Ramirez prior to transport to the neuroangiography suite. This included a discussion of the risks, benefits, and alternatives to cerebral angiography. Risks discussed included stroke or transient neurologic deficit (TIA), vascular injury, distal embolization, allergic reaction, pain, bleeding, and infection. The patient gave both verbal and written consent to proceed. Timeout was done at the beginning the procedure.Strict hand hygiene protocol was observed. All personnel in the room were attired in surgical hat and mask. The operators were in surgical hat, mask, sterile gown, and sterile gloves. The access site was prepped and draped in the standard sterile fashion with 2% chlorohexadine. The right radial artery was prepped and draped in the usual sterile fashion. Next, the right radial artery was localized with ultrasound. Bupivicaine mixed with nitroglycerin per protocol was infused locally. The artery was accessed using ultrasound and an arterial angiocatheter kit with microwire. The angiocath was advanced into the artery, and the microwire was removed. A cocktail of 0.25% Bupivicaine, verapamil, nitroglycerin, and heparin per protocol was infused through the angiocath. The angiocath was exchanged over a wire for a 5 German slender sheath. The sheath was connected to a regulated, pressurized infusion of heparinized saline. During access, ultrasound guidance was used to confirm vessel patency, and to visualize the vascular needle entry during access. Ultrasound images were included in the final report. Radial artery angiogram: Brachial view Contrast was injected and angiography performed through the sheath demonstrating in the AP projection anterograde flow from the brachial to the radial and ulnar arteries. There is no evidence of dissection, pseudoaneurysm, or fistula. A 5 German Sheets 2 catheter was advanced over a 0.035 Angle-Kirkland guidewire through the sheath and into the subclavian artery under fluoroscopic guidance. The catheter was advanced over the guidewire into the Left subclavian artery. Left Nonselective Vertebral Artery Angiogram: Cervical and Cranial View Using roadmap technique, the catheter was advanced into the left subclavian artery. Contrast was injected and angiography performed in the AP and lateral projection through the left vertebral artery demonstrating the left vertebral artery, and the basilar artery and its branches. There is atherosclerotic disease at the origin of left vertebral artery without flow limiting stenosis. No significant dissection, or vascular malformation was identified. Left Common Carotid Artery Angiogram: Cervical View The catheter was advanced over the guidewire using fluoroscopic guidance and roadmap technique. Contrast was injected and angiography performed in the AP and lateral projection through the left common carotid artery demonstrating the left common carotid artery, the left external carotid artery and its branches, and the left internal carotid artery. No significant stenosis, dissection, or vascular malformation was identified. Left Internal Carotid Artery Angiogram: Cranial View Contrast was injected and angiography performed in the AP and lateral projection through the left internal carotid artery demonstrating the left external carotid artery branches, the left internal carotid artery, the middle cerebral artery, and anterior cerebral artery with cross-filling through the anterior communicating artery into the contralateral LEEROY. There is evidence of left M3 distal branch occlusion with corresponding wedge defect. There is no evidence of aneurysms, vascular malformation, arteriovenous shunting, stenosis or vasospasm. Aside from the corresponding capillary perfusion defect, No significant abnormalities are seen in the capillary and venous phases. The venous phase demonstrates patent transverse and sigmoid sinuses. Left External Carotid Artery Angiogram: Cranial View Contrast was injected and angiography performed in the AP and lateral projection through the left external carotid artery demonstrating the left external carotid artery branches. There is no evidence of aneurysms, vascular malformation, arteriovenous shunting, stenosis or vasospasm. No significant abnormalities are seen in the capillary and venous phases. Right Common Carotid Artery Angiogram: Cervical View Contrast was injected and angiography performed in the AP and lateral projection through the right common carotid artery demonstrating the right common carotid artery, the right external carotid artery and its branches, and the right internal carotid artery. No significant stenosis, dissection, or vascular malformation was identified. Right Common Carotid Artery Angiogram: Cranial View Contrast was injected and angiography performed in the AP and lateral projection through the right common carotid artery demonstrating the right external carotid artery branches, the right internal carotid artery, the middle cerebral artery, and anterior cerebral artery with cross-filling through the anterior communicating artery into the contralateral LEEROY. There is an infundibulum at the origin of posterior communicating artery. There is no evidence of aneurysms, vascular malformation, arteriovenous shunting, stenosis or vasospasm. No significant abnormalities are seen in the capillary and venous phases. The venous phase demonstrates patent transverse and sigmoid sinuses. Right Selective Vertebral Artery Angiogram: Cervical and Cranial View Using roadmap technique, the catheter was advanced into the right vertebral artery from the right subclavian artery. Contrast was injected and angiography performed in the AP and lateral projection through the right vertebral artery demonstrating the right vertebral artery, and the basilar artery and its branches. There is good reflux down the left vertebral artery, demonstrating the left posterior inferior cerebellar artery. The basilar artery shows no significant abnormality. No aneurysms, vascular malformations, or stenotic lesions are noted in the vertebrobasilar system. The venous phase shows patent bilateral transverse and sigmoid sinuses. The catheter was removed. The sheath was removed and the radial artery was closed with a TR band. 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 No evidence of arteriovenous malformation or fistula. Procedure Note Jw Ramirez MD - 08/30/2025 CLINICAL INDICATION: This patients 60 y.o. F w/ PMHx of Hypertension,C4-C5 spinal fusion anterior approach (08/26) presented with right-sidedweakness and right- sided facial droop giving a baseline NIHSS of 13. CTHIPH in the posterior left frontal lobe w/ ass. SAH. CTA no vascularmalformation . The patient is here today for cerebral angiogram to betterevaluate cerebral vasculature. PRE-OP EVALUATION: The patient's preoperative neurological examdemonstrated the following findings: As per chart. DATE: 08/29/2025 11:29 AM EXAM: Diagnostic Cerebral Angiogram COMPARISON:CTA head and neck 08/27/2025 SHADE BANDER: Jw Ramirez MD SEC[employer]ARY [employer] SERVICES COORDINATOR: Rylee Gupta MD FLUORO TIME: 16 minutes FLUORO DOSE: 701 mGy Contrast: Omnipaque 300 [id number] cc Anesthesia: General Anesthesia Medications: Versed, Fentanyl, 0.25% Bupivicaine, Nitroglycerin andVerapamil TECHNIQUE:The procedure was explained in its entirety to the patient'sfamily by Dr. Ramirez prior to transport to the neuroangiography suite.This included a discussion of the risks, benefits, and alternatives tocerebral angiography. Risks discussed included stroke or transientneurologic deficit (TIA), vascular injury, distal embolization, allergicreaction, pain, bleeding, and infection. The patient gave both verbal andwritten consent to proceed. Timeout was done at the beginning the procedure.Strict hand hygieneprotocol was observed. All personnel in the room were attired in surgicalhat and mask. The operators were in surgical hat, mask, sterile gown, andsterile gloves. The access site was prepped and draped in the standardsterile fashion with 2% chlorohexadine. The right radial artery was prepped and draped in the usual sterilefashion. Next, the right radial artery was localized with ultrasound.Bupivicaine mixed with nitroglycerin per protocol was infused locally.The artery was accessed using ultrasound and an arterial angiocatheter kitwith microwire. The angiocath was advanced into the artery, and themicrowire was removed. A cocktail of 0.25% Bupivicaine, verapamil,nitroglycerin, and heparin per protocol was infused through the angiocath.The angiocath was exchanged over a wire for a 5 German slender sheath.The sheath was connected to a regulated, pressurized infusion ofheparinized saline. During access, ultrasound guidance was used to confirmvessel patency, and to visualize the vascular needle entry during access.Ultrasound images were included in the final report. Radial artery angiogram: Brachial view Contrast was injected and angiography performed through the sheathdemonstrating in the AP projection anterograde flow from the brachial tothe radial and ulnar arteries. There is no evidence of dissection,pseudoaneurysm, or fistula. A 5 German Sheets 2 catheter was advanced over a 0.035 Angle-Glideguidewire through the sheath and into the subclavian artery underfluoroscopic guidance. The catheter was advanced over the guidewire intothe Left subclavian artery. Left Nonselective Vertebral Artery Angiogram: Cervical and Cranial View Using roadmap technique, the catheter was advanced into the leftsubclavian artery. Contrast was injected and angiography performed in theAP and lateral projection through the left vertebral artery demonstratingthe left vertebral artery, and the basilar artery and its branches. Thereis atherosclerotic disease at the origin of left vertebral artery withoutflow limiting stenosis. No significant dissection, or vascularmalformation was identified. Left Common Carotid Artery Angiogram: Cervical View The catheter was advanced over the guidewire using fluoroscopic guidanceand roadmap technique. Contrast was injected and angiography performed inthe AP and lateral projection through the left common carotid arterydemonstrating the left common carotid artery, the left external carotidartery and its branches, and the left internal carotid artery. Nosignificant stenosis, dissection, or vascular malformation wasidentified. Left Internal Carotid Artery Angiogram: Cranial View Contrast was injected and angiography performed in the AP and lateralprojection through the left internal carotid artery demonstrating the leftexternal carotid artery branches, the left internal carotid artery, themiddle cerebral artery, and anterior cerebral artery with cross-fillingthrough the anterior communicating artery into the contralateral LEEROY.There is evidence of left M3 distal branch occlusion with correspondingwedge defect. There is no evidence of aneurysms, vascular malformation,arteriovenous shunting, stenosis or vasospasm. Aside from thecorresponding capillary perfusion defect, No significant abnormalities areseen in the capillary and venous phases. The venous phase demonstratespatent transverse and sigmoid sinuses. Left External Carotid Artery Angiogram: Cranial View Contrast was injected and angiography performed in the AP and lateralprojection through the left external carotid artery demonstrating the leftexternal carotid artery branches. There is no evidence of aneurysms,vascular malformation, arteriovenous shunting, stenosis or vasospasm. Nosignificant abnormalities are seen in the capillary and venous phases. Right Common Carotid Artery Angiogram: Cervical View Contrast was injected and angiography performed in the AP and lateralprojection through the right common carotid artery demonstrating the rightcommon carotid artery, the right external carotid artery and its branches,and the right internal carotid artery. No significant stenosis,dissection, or vascular malformation was identified. Right Common Carotid Artery Angiogram: Cranial View Contrast was injected and angiography performed in the AP and lateralprojection through the right common carotid artery demonstrating the rightexternal carotid artery branches, the right internal carotid artery, themiddle cerebral artery, and anterior cerebral artery with cross-fillingthrough the anterior communicating artery into the contralateral LEEROY.There is an infundibulum at the origin of posterior communicating artery.There is no evidence of aneurysms, vascular malformation, arteriovenousshunting, stenosis or vasospasm. No significant abnormalities are seen inthe capillary and venous phases. The venous phase demonstrates patenttransverse and sigmoid sinuses. Right Selective Vertebral Artery Angiogram: Cervical and Cranial View Using roadmap technique, the catheter was advanced into the rightvertebral artery from the right subclavian artery. Contrast was injectedand angiography performed in the AP and lateral projection through theright vertebral artery demonstrating the right vertebral artery, and thebasilar artery and its branches. There is good reflux down the leftvertebral artery, demonstrating the left posterior inferior cerebellarartery. The basilar artery shows no significant abnormality. No aneurysms,vascular malformations, or stenotic lesions are noted in thevertebrobasilar system. The venous phase shows patent bilateral transverseand sigmoid sinuses. The catheter was removed. The sheath was removed and the radial artery wasclosed with a TR band. FINDINGS: Left Middle cerebral artery M3 branch occlusion with corresponding wedgedefect and capillary perfusion defect. No evidence of arteriovenousmalformation or fistula. 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 No evidence of arteriovenousmalformation or fistula. COMMUNICATION: Results were communicated to the patient. Preliminary report signed by Rylee Gupta on 08/29/2025 12:19 PM By electronically signing this report, I, the attending physician, attestthat I was present for the entire procedure(s) and agree with the finaledited report. Drafted by Rylee Gupta on 08/29/2025 12:11 PM Final report signed by Jw Ramirez on 08/30/2025 5:09 PM Rylee Gupta MD IMG IR PROCEDURES Final Result * (ABNORMAL) CBC W/O Differential (08/29/2025 12:53 AM EDT) WBC Count 10.61(H) 3.70 - 10.30 10*3/uL LAB HEMATOLOGY METHOD 08/29/2025 1:16 AM EDT [facility] RBC Count 3.99 3.90 - 5.20 10*6/uL LAB HEMATOLOGY METHOD 08/29/2025 1:16 AM EDT [facility] HGB 13.1 11.2 - 15.7 g/dL LAB HEMATOLOGY METHOD 08/29/2025 1:16 AM EDT [facility] HCT 37.2 34.0 - 45.0 % LAB HEMATOLOGY METHOD 08/29/2025 1:16 AM EDT [facility] Platelet Count 303 155 - 369 10*3/uL LAB HEMATOLOGY METHOD 08/29/2025 1:16 AM EDT [facility] MCV 93 79 - 98 fL LAB HEMATOLOGY METHOD 08/29/2025 1:16 AM EDT [facility] MCH 32.8(H) 26.0 - 32.0 pg LAB HEMATOLOGY METHOD 08/29/2025 1:16 AM EDT [facility] MCHC 35.2 30.7 - 35.5 g/dL LAB HEMATOLOGY METHOD 08/29/2025 1:16 AM EDT [facility] RDW 11.9 11.5 - 14.5 % LAB HEMATOLOGY METHOD 08/29/2025 1:16 AM EDT [facility] MPV 8.7(L) 8.8 - 12.5 fL LAB HEMATOLOGY METHOD 08/29/2025 1:16 AM EDT [facility] nRBC 0.0 <=0.0 per 100 WBCs LAB HEMATOLOGY METHOD 08/29/2025 1:16 AM EDT [facility] Blood Venous blood specimen / Unknown Venipuncture / Unknown 08/29/2025 12:53 AM EDT 08/29/2025 1:05 AM EDT us Claudia Morales [employer]T [employer]IVER LAB BLOOD ORDERABLES Final Result [facility] [address] [place] [address] * (ABNORMAL) Basic Metabolic Panel, Plasma (08/29/2025 12:53 AM EDT) Glucose, Plasma 146(H) 74 - 99 mg/dL 08/29/2025 1:33 AM EDT [facility] BUN, Plasma 24(H) 7 - 21 mg/dL 08/29/2025 1:33 AM EDT [facility] Creatinine, Plasma 0.52(L) 0.60 - 1.10 mg/dL 08/29/2025 1:33 AM EDT [facility] BUN/Creatinine Ratio 46 08/29/2025 1:33 AM EDT [facility] Sodium, Plasma 139 136 - 145 mmol/L 08/29/2025 1:33 AM EDT [facility] Potassium, Plasma 3.5(L) 3.6 - 4.9 mmol/L 08/29/2025 1:33 AM EDT [facility] Chloride, Plasma 106 97 - 107 mmol/L 08/29/2025 1:33 AM EDT [facility] CO2, Plasma 24 22 - 29 mmol/L 08/29/2025 1:33 AM EDT [facility] Anion Gap 9 6 - 16 mmol/L 08/29/2025 1:33 AM EDT [facility] Total Calcium, Plasma 8.9 8.9 - 10.2 mg/dL 08/29/2025 1:33 AM EDT [facility] eGFRcr 107.2 mL/min/1.7 3m*2 08/29/2025 1:33 AM EDT [facility] Comment:Reported eGFRcr in m L/min/1.73m2 is based the CKD-EPI 2020 equation that does not use a race coefficient. Blood Venous blood specimen / Unknown Venipuncture / Unknown 08/29/2025 12:53 AM EDT 08/29/2025 1:04 AM EDT us Bridgett Colindres [employer]UNT DRIVER, DNP LAB BLOOD ORDERABLES Leia l Result [facility] [address] [place] [address] * Magnesium, Plasma (08/29/2025 12:53 AM EDT) Magnesium, Plasma 2.1 1.9 - 2.4 mg/dL 08/29/2025 1:33 AM EDT [facility] Blood Venous blood specimen / Unknown Venipuncture / Unknown 08/29/2025 12:53 AM EDT 08/29/2025 1:04 AM EDT Bridgett Colindres APRN, DNP LAB BLOOD ORDERABLES Leia l Result Performing Organization Address City/[facility]/Z[place] [address] * (ABNORMAL) Phosphorus, Plasma (08/29/2025 12:53 AM EDT) Phosphorus, Plasma 2.2(L) 2.5 - 4.5 mg/dL 08/29/2025 1:33 AM EDT [facility] Blood Venous blood specimen / Unknown Venipuncture / Unknown 08/29/2025 12:53 AM EDT 08/29/2025 1:04 AM EDT Bridgett Colindres APRN, MARIANA LAB BLOOD ORDERABLES Leia l Result Performing Organization Address [facility] [place] [address] * CT Chest wo IV Contrast (08/28/2025 10:30 AM EDT) Anatomical Region Laterality Modality Chest Computed Tomogra phy Impressions 08/28/2025 1:11 PM EDT No suspicious pulmonary nodules. Mild centrilobular emphysema. CRITICAL RESULT: No. COMMUNICATION: Per this written report. Drafted by Julio Barrera MD on 08/28/2025 1:05 PM Final report signed by Julio Barrera MD on 08/28/2025 1:11 PM Narrative 08/28/2025 1:11 PM EDT CLINICAL INDICATION: Abnormal xray - lung nodule (Age >= 35y) TECHNIQUE: Multiple CT helical images were obtained from thoracic inlet through upper abdomen without administration of IV contrast. The imaging protocol used in this examination was optimized to achieve diagnostic quality with the lowest possible radiation dose in accordance with the principles of ALARA (As Low As Reasonably Achievable). COMPARISON: August 28, 2025 chest FINDINGS: Mediastinum and Pleura: Trace pericardial effusion. No pleural effusion. No enlarged mediastinal lymph nodes. Coronary artery atherosclerosis. Small hiatal hernia. Lungs: Central airways are patent. No bronchial wall thickening or bronchiectasis. No mass or consolidation. Linear scarring in the left lung base. Upper lobe dominant centrilobular emphysema, right greater than left. No suspicious pulmonary nodules. Upper Abdomen: Postcholecystectomy. Nonobstructive renal calculi in the upper renal pole. Musculoskeletal: No suspicious lytic or sclerotic lesion. Nodular opacity identified on recent chest radiograph corresponds to articulation of the first rib with the manubrium. Post surgical changes in the lower cervical spine. Procedure Note Julio Barrera MD - 08/28/2025 CLINICAL INDICATION: Abnormal xray - lung nodule (Age >= 35y) TECHNIQUE: Multiple CT helical images were obtained from thoracic inlet through upperabdomen without administration of IV contrast. The imaging protocol used in this examination was optimized to achievediagnostic quality with the lowest possible radiation dose in accordancewith the principles of ALARA (As Low As Reasonably Achievable). COMPARISON: August 28, 2025 chest FINDINGS: Mediastinum and Pleura: Trace pericardial effusion. No pleural effusion.No enlarged mediastinal lymph nodes. Coronary artery atherosclerosis.Small hiatal hernia. Lungs: Central airways are patent. No bronchial wall thickening orbronchiectasis. No mass or consolidation. Linear scarring in the left lungbase. Upper lobe dominant centrilobular emphysema, right greater thanleft. No suspicious pulmonary nodules. Upper Abdomen: Postcholecystectomy. Nonobstructive renal calculi in theupper renal pole. Musculoskeletal: No suspicious lytic or sclerotic lesion. Nodular opacityidentified on recent chest radiograph corresponds to articulation of thefirst rib with the manubrium. Post surgical changes in the lower cervicalspine. IMPRESSION: No suspicious pulmonary nodules. Mild centrilobular emphysema. CRITICAL RESULT: No. COMMUNICATION: Per this written report. Drafted by Julio Barrera MD on 08/28/2025 1:05 PM Final report signed by Julio Barrera MD on 08/28/2025 1:11 PM us Claudia Morales STUNT DRIVER IMG CT PROCEDURES Final Re sult * CT Head wo IV Contrast (08/28/2025 10:25 AM EDT) Anatomical Region Laterality Modality Head Computed Tomogra phy Impressions 08/28/2025 6:07 PM EDT Stable intracranial hemorrhage in the left parietal lobe with associated areas of subarachnoid hemorrhage. CRITICAL RESULT: No. COMMUNICATION: Per this written report. Drafted by David Tomlin MD on 08/28/2025 6:03 PM Final report signed by David Tomlin MD on 08/28/2025 6:07 PM Narrative 08/28/2025 6:07 PM EDT CLINICAL INDICATION: Stroke, follow up TECHNIQUE: Spiral axial CT images of the head were obtained without contrast administration. Total DLP (Dose-Length Product): 852.65 mGy.cm. Please note: The reported value represents the total of one or more individual components during the CT acquisition on this date and at this time, and as such, the same value may appear in more than one CT report depending on the interpreting/reporting physicians. COMPARISON: CT head from 08/28/2025 at 4:20 AM FINDINGS: Diagnostic Quality: Adequate. There is redemonstration of intracranial hemorrhage centered in the left parietal lobe extending deep into portions of the periventricular white matter with also associated areas of subarachnoid hemorrhage in the parietal convexity. The configuration and size of the parenchymal hemorrhage is grossly stable from prior. The amount of mild mass effect upon the lateral ventricles is also unchanged. There is no definite new or worsening hemorrhagic changes. There is redemonstration of remote postsurgical changes of left mastoidectomy. Procedure Note David Louis MD - 08/28/2025 CLINICAL INDICATION: Stroke, follow up TECHNIQUE: Spiral axial CT images of the head were obtained without contrastadministration. Total DLP (Dose-Length Product): 852.65 mGy.cm. Please note: The reportedvalue represents the total of one or more individual components during theCT acquisition on this date and at this time, and as such, the same valuemay appear in more than one CT report depending on theinterpreting/reporting physicians. COMPARISON: CT head from 08/28/2025 at 4:20 AM FINDINGS: Diagnostic Quality: Adequate. There is redemonstration of intracranial hemorrhage centered in the leftparietal lobe extending deep into portions of the periventricular whitematter with also associated areas of subarachnoid hemorrhage in theparietal convexity. The configuration and size of the parenchymalhemorrhage is grossly stable from prior. The amount of mild mass effectupon the lateral ventricles is also unchanged. There is no definite new orworsening hemorrhagic changes. There is redemonstration of remote postsurgical changes of leftmastoidectomy. IMPRESSION: Stable intracranial hemorrhage in the left parietal lobe with associatedareas of subarachnoid hemorrhage. CRITICAL RESULT: No. COMMUNICATION: Per this written report. Drafted by David Tomlin MD on 08/28/2025 6:03 PM Final report signed by David Tomlin MD on 08/28/2025 6:07 PM Rylee Gupta MD IMG CT PROCEDURES Final Result * Anti Xa Level Low Molecular Weight (08/28/2025 4:57 AM EDT) Anti Xa Level Low Molecular Weight Heparin <0.11 <2.00 IU/mL LAB COAGULATION METHOD 08/28/2025 5:56 AM EDT [facility] Blood Venous blood specimen / Unknown Venipuncture / Unknown 08/28/2025 4:57 AM EDT 08/28/2025 5:03 AM EDT Narrative [facility] - 08/28/2025 5:56 AM EDT Therapeutic Range: LMWH enoxaparin 1mg/kg/dose, 12hrs - peak (3-5 hours after dose): 0.5 - 1.0 IU/mL LMWH enoxaparin 1.5mg/kg/dose, 24hrs - peak (3-5 hours after dose): 1.0 - 2.0 IU/mL LMWH enoxaparin prophylaxis: Not established Sergey Stern MD LAB BLOOD ORDERABLES Final R esult [facility] [address] [place] [address] * (ABNORMAL) Blood gas panel, arterial (08/28/2025 4:53 AM EDT) pH, Arterial 7.43 7.35 - 7.45 LAB HEMATOLOGY METHOD 08/28/2025 5:05 AM EDT [facility] pCO2, Arterial 38 35 - 48 mmHg LAB HEMATOLOGY METHOD 08/28/2025 5:05 AM EDT [facility] pO2, Arterial 88 83 - 108 mmHg LAB HEMATOLOGY METHOD 08/28/2025 5:05 AM EDT [facility] SO2, Measured, Arterial 97 94 - 98 % LAB HEMATOLOGY METHOD 08/28/2025 5:05 AM EDT [facility] Base Excess, Arterial 1.1 -2.0 - 3.0 mmol/L LAB HEMATOLOGY METHOD 08/28/2025 5:05 AM EDT [facility] Bicarbonate, Calculated, Arterial 25 22 - 26 mmol/L LAB HEMATOLOGY METHOD 08/28/2025 5:05 AM EDT [facility] Hematocrit, Whole Blood 44.1 34.0 - 45.0 % LAB HEMATOLOGY METHOD 08/28/2025 5:05 AM EDT [facility] Sodium, Whole Blood 140 136 - 145 mmol/L LAB HEMATOLOGY METHOD 08/28/2025 5:05 AM EDT [facility] Potassium, Whole Blood 3.2(L) 3.6 - 4.9 mmol/L LAB HEMATOLOGY METHOD 08/28/2025 5:05 AM EDT [facility] Chloride, Whole Blood 105 97 - 107 mmol/L LAB HEMATOLOGY METHOD 08/28/2025 5:05 AM EDT [facility] Glucose, Whole Blood 162(H) 74 - 99 mg/dL LAB HEMATOLOGY METHOD 08/28/2025 5:05 AM EDT [facility] Ionized Calcium, Whole Blood 4.5(L) 4.6 - 5.1 mg/dL LAB HEMATOLOGY METHOD 08/28/2025 5:05 AM EDT [facility] Lactate, Arterial, Whole Blood 1.0 0.5 - 1.6 mmol/L LAB HEMATOLOGY METHOD 08/28/2025 5:05 AM EDT [facility] Blood Arterial blood specimen / Unknown Arterial Puncture / Unknown 08/28/2025 4:53 AM EDT 08/28/2025 5:03 AM EDT us Bridgett Perez Colindres STUNT DRIVER, DNP LAB BLOOD ORDERABLES Leia ramesh Result [facility] [address] [place] [address] * CT Cervical Spine wo IV Contrast (08/28/2025 4:29 AM EDT) Anatomical Region Laterality Modality Spine, C-spine Computed Tomogra phy Impressions 08/28/2025 6:03 PM EDT 1. No definite acute fracture or malalignment. 2. Recent postsurgical changes of anterior fusion with no findings to suggest hardware complication. Mild amount of prevertebral swelling and also extending along the left-sided aspect of the neck, likely postsurgical. If there is further clinical concern for superimposed infectious / inflammatory process, MRI can be helpful. CRITICAL RESULT: COMMUNICATION: Per this written report. Drafted by David Tomlin MD on 08/28/2025 5:53 PM Final report signed by David Tomiln MD on 08/28/2025 6:03 PM Narrative 08/28/2025 6:03 PM EDT CLINICAL INDICATION: fall at home; recent C spine surgery TECHNIQUE: Imaging of the entire cervical spine was performed, using spiral technique, without contrast administration. Images were reconstructed in the axial plane at multiple slice thicknesses on bone and soft tissue algorithm. Reformatted images in the coronal and sagittal planes were generated. TOTAL DLP (Dose-Length Product): 1233.82 mGy.cm. Please note: The reported value represents the total of one or more individual components during the CT acquisition on this date and at this time, and as such, the same value may appear in more than one CT report depending on the interpreting/reporting physicians. COMPARISON: CTA neck from 08/27/2025 FINDINGS: Diagnostic Quality: Adequate Alignment: Minimal anterolisthesis of C3 on C4, stable from prior. Vertebral bodies and intervertebral discs: Postsurgical changes of anterior fusion with screws and intervertebral disc spacer noted at C4-C5 and at C6-C7. Corpectomy also appears to be present at C5 level. At C4-C5 the surgery appears recent. Overall the hardware appear intact with no findings to suggest complications. No definite acute bony abnormalities are noted. Degenerative changes: Multilevel facet hypertrophy is noted worse on the right at C3-C4 and on the left at C4-C5 where there is associated at least moderate left foraminal narrowing. Spinal canal: There is no significant narrowing of the spinal canal. Prevertebral and Paraspinal Soft Tissues: There is mild amount of prevertebral swelling extending from approximately C2 level inferiorly to about C7-T1. There is moderate amount of swelling with mixed areas of subcutaneous emphysema in the left-sided neck most likely from recent surgery. Other findings: Procedure Note David Louis MD - 08/28/2025 CLINICAL INDICATION: fall at home; recent C spine surgery TECHNIQUE: Imaging of the entire cervical spine was performed, using spiraltechnique, without contrast administration. Images were reconstructed inthe axial plane at multiple slice thicknesses on bone and soft tissuealgorithm. Reformatted images in the coronal and sagittal planes weregenerated. TOTAL DLP (Dose-Length Product): 1233.82 mGy.cm. Please note: Thereported value represents the total of one or more individual componentsduring the CT acquisition on this date and at this time, and as such, thesame value may appear in more than one CT report depending on theinterpreting/reporting physicians. COMPARISON: CTA neck from 08/27/2025 FINDINGS: Diagnostic Quality: Adequate Alignment: Minimal anterolisthesis of C3 on C4, stable from prior. Vertebral bodies and intervertebral discs: Postsurgical changes ofanterior fusion with screws and intervertebral disc spacer noted at C4-C5and at C6-C7. Corpectomy also appears to be present at C5 level. At C4-C5the surgery appears recent. Overall the hardware appear intact with nofindings to suggest complications. No definite acute bony abnormalitiesare noted. Degenerative changes: Multilevel facet hypertrophy is noted worse on theright at C3-C4 and on the left at C4-C5 where there is associated at leastmoderate left foraminal narrowing. Spinal canal: There is no significant narrowing of the spinal canal. Prevertebral and Paraspinal Soft Tissues: There is mild amount ofprevertebral swelling extending from approximately C2 level inferiorly toabout C7-T1. There is moderate amount of swelling with mixed areas ofsubcutaneous emphysema in the left-sided neck most likely from recentsurgery. Other findings: IMPRESSION: 1. No definite acute fracture or malalignment. 2. Recent postsurgical changes of anterior fusion with no findings tosuggest hardware complication. Mild amount of prevertebral swelling andalso extending along the left-sided aspect of the neck, likelypostsurgical. If there is further clinical concern for superimposedinfectious / inflammatory process, MRI can be helpful. CRITICAL RESULT: COMMUNICATION: Per this written report. Drafted by David Tomlin MD on 08/28/2025 5:53 PM Final report signed by David Tomlin MD on 08/28/2025 6:03 PM us Bridgett Colindres STUNT DRIVER, DNP IMG CT PROCEDURES Final R esult * CT HEAD WO IV CONTRAST (08/28/2025 4:29 AM EDT) Anatomical Region Laterality Modality Head Computed Tomogra phy Impressions 08/28/2025 6:10 PM EDT Stable left parietal hemorrhage with associated subarachnoid hemorrhage. CRITICAL RESULT: No. COMMUNICATION: Per this written report. Drafted by David Tomlin MD on 08/28/2025 6:07 PM Final report signed by David Tomlin MD on 08/28/2025 6:10 PM Narrative 08/28/2025 6:10 PM EDT CLINICAL INDICATION: Neuro deficit, acute, stroke suspected TECHNIQUE: Spiral axial CT images of the head were obtained without contrast administration. Total DLP (Dose-Length Product): 1233.82 mGy.cm. Please note: The reported value represents the total of one or more individual components during the CT acquisition on this date and at this time, and as such, the same value may appear in more than one CT report depending on the interpreting/reporting physicians. COMPARISON: CT head from 08/27/2025. FINDINGS: Diagnostic Quality: Adequate. There is again noted hemorrhage in the left parietal lobe with the largest component measuring approximately 4.2 cm and smaller areas of satellite parenchymal hemorrhage anteriorly and posteriorly. The deeper component appears to extends into the periventricular white matter. There is also minimal amount of possible intraventricular hemorrhage in the left occipital lobe. There is redemonstration of scattered areas of subarachnoid hemorrhage surrounding the parenchymal component. No definite new or additional areas of hemorrhage as compared with recent examination. The amount of mass effect is stable. Procedure Note David Louis MD - 08/28/2025 CLINICAL INDICATION: Neuro deficit, acute, stroke suspected TECHNIQUE: Spiral axial CT images of the head were obtained without contrastadministration. Total DLP (Dose-Length Product): 1233.82 mGy.cm. Please note: The reportedvalue represents the total of one or more individual components during theCT acquisition on this date and at this time, and as such, the same valuemay appear in more than one CT report depending on theinterpreting/reporting physicians. COMPARISON: CT head from 08/27/2025. FINDINGS: Diagnostic Quality: Adequate. There is again noted hemorrhage in the left parietal lobe with the largestcomponent measuring approximately 4.2 cm and smaller areas of satelliteparenchymal hemorrhage anteriorly and posteriorly. The deeper componentappears to extends into the periventricular white matter. There is alsominimal amount of possible intraventricular hemorrhage in the leftoccipital lobe. There is redemonstration of scattered areas of subarachnoid hemorrhagesurrounding the parenchymal component. No definite new or additional areasof hemorrhage as compared with recent examination. The amount of masseffect is stable. IMPRESSION: Stable left parietal hemorrhage with associated subarachnoid hemorrhage. CRITICAL RESULT: No. COMMUNICATION: Per this written report. Drafted by David Tomlin MD on 08/28/2025 6:07 PM Final report signed by David Tomlin MD on 08/28/2025 6:10 PM us Sergey Stern MD IM CT PROCEDURES Final Resu lt * (ABNORMAL) Basic Metabolic Panel, Plasma (08/28/2025 3:20 AM EDT) Glucose, Plasma 175(H) 74 - 99 mg/dL 08/28/2025 3:55 AM EDT [facility] BUN, Plasma 15 7 - 21 mg/dL 08/28/2025 3:55 AM EDT [facility] Creatinine, Plasma 0.55(L) 0.60 - 1.10 mg/dL 08/28/2025 3:55 AM EDT [facility] BUN/Creatinine Ratio 27 08/28/2025 3:55 AM EDT [facility] Sodium, Plasma 136 136 - 145 mmol/L 08/28/2025 3:55 AM EDT [facility] Potassium, Plasma 3.5(L) 3.6 - 4.9 mmol/L 08/28/2025 3:55 AM EDT [facility] Chloride, Plasma 102 97 - 107 mmol/L 08/28/2025 3:55 AM EDT [facility] CO2, Plasma 21(L) 22 - 29 mmol/L 08/28/2025 3:55 AM EDT [facility] Anion Gap 13 6 - 16 mmol/L 08/28/2025 3:55 AM EDT [facility] Total Calcium, Plasma 9.2 8.9 - 10.2 mg/dL 08/28/2025 3:55 AM EDT [facility] eGFRcr 105.7 mL/min/1.7 3m*2 08/28/2025 3:55 AM EDT [facility] Comment:Reported eGFRcr in m L/min/1.73m2 is based the CKD-EPI 2020 equation that does not use a race coefficient. Blood Venous blood specimen / Unknown Venipuncture / Unknown 08/28/2025 3:20 AM EDT 08/28/2025 3:26 AM EDT us Bridgett Colindres STUNT DRIVER, DNP LAB BLOOD ORDERABLES Leia l Result [facility] [address] [place] [address] * (ABNORMAL) Magnesium, Plasma (08/28/2025 3:20 AM EDT) Magnesium, Plasma 1.8(L) 1.9 - 2.4 mg/dL 08/28/2025 3:55 AM EDT [facility] Blood Venous blood specimen / Unknown Venipuncture / Unknown 08/28/2025 3:20 AM EDT 08/28/2025 3:26 AM EDT Bridgett Colindres APRN, MARIANA LAB BLOOD ORDERABLES Leia l Result Performing Organization Address City/[facility]/ZIP Co de Phone Number [facility] [address] [place] [address] * (ABNORMAL) Phosphorus, Plasma (08/28/2025 3:20 AM EDT) Phosphorus, Plasma 2.1(L) 2.5 - 4.5 mg/dL 08/28/2025 3:55 AM EDT [facility] Blood Venous blood specimen / Unknown Venipuncture / Unknown 08/28/2025 3:20 AM EDT 08/28/2025 3:26 AM EDT us Bridgett Colindres APRN, MARIANA LAB BLOOD ORDERABLES Leia l Result Performing Organization Address [facility] Co de Phone Number [facility] [address] [place] [address] * (ABNORMAL) Ionized calcium, whole blood (08/28/2025 3:20 AM EDT) Ionized Calcium, Whole Blood 4.2(L) 4.6 - 5.1 mg/dL LAB HEMATOLOGY METHOD 08/28/2025 3:28 AM EDT [facility] Blood Venous blood specimen / Unknown Venipuncture / Unknown 08/28/2025 3:20 AM EDT 08/28/2025 3:27 AM EDT Bridgett Colindres APRN, MARIANA LAB BLOOD ORDERABLES Leia l Result Performing Organization Address City/[facility]/ZIP Co de Phone Number [facility] [address] [place] [address] * (ABNORMAL) CBC and Differential (08/28/2025 3:20 AM EDT) WBC Count 16.22(H) 3.70 - 10.30 10*3/uL LAB HEMATOLOGY METHOD 08/28/2025 3:36 AM EDT [facility] RBC Count 4.43 3.90 - 5.20 10*6/uL LAB HEMATOLOGY METHOD 08/28/2025 3:36 AM EDT [facility] HGB 14.5 11.2 - 15.7 g/dL LAB HEMATOLOGY METHOD 08/28/2025 3:36 AM EDT [facility] HCT 40.8 34.0 - 45.0 % LAB HEMATOLOGY METHOD 08/28/2025 3:36 AM EDT [facility] Platelet Count 312 155 - 369 10*3/uL LAB HEMATOLOGY METHOD 08/28/2025 3:36 AM EDT [facility] MCV 92 79 - 98 fL LAB HEMATOLOGY METHOD 08/28/2025 3:36 AM EDT [facility] MCH 32.7(H) 26.0 - 32.0 pg LAB HEMATOLOGY METHOD 08/28/2025 3:36 AM EDT [facility] MCHC 35.5 30.7 - 35.5 g/dL LAB HEMATOLOGY METHOD 08/28/2025 3:36 AM EDT [facility] RDW 11.6 11.5 - 14.5 % LAB HEMATOLOGY METHOD 08/28/2025 3:36 AM EDT [facility] MPV 9.0 8.8 - 12.5 fL LAB HEMATOLOGY METHOD 08/28/2025 3:36 AM EDT [facility] nRBC 0.0 <=0.0 per 100 WBCs LAB HEMATOLOGY METHOD 08/28/2025 3:36 AM EDT [facility] Differential Type Automated LAB HEMATOLOGY METHOD 08/28/2025 3:36 AM EDT [facility] Neutrophils % 83 % LAB HEMATOLOGY METHOD 08/28/2025 3:36 AM EDT [facility] Lymphocytes % 10 % LAB HEMATOLOGY METHOD 08/28/2025 3:36 AM EDT [facility] Monocytes % 6 % LAB HEMATOLOGY METHOD 08/28/2025 3:36 AM EDT [facility] Eosinophils % 1 % LAB HEMATOLOGY METHOD 08/28/2025 3:36 AM EDT [facility] Basophils % 0 % LAB HEMATOLOGY METHOD 08/28/2025 3:36 AM EDT [facility] Immature Granulocytes % 0 % LAB HEMATOLOGY METHOD 08/28/2025 3:36 AM EDT [facility] Neutrophils Absolute 13.43(H) 1.60 - 6.10 10*3/uL LAB HEMATOLOGY METHOD 08/28/2025 3:36 AM EDT [facility] Lymphocytes Absolute 1.57 1.20 - 3.90 10*3/uL LAB HEMATOLOGY METHOD 08/28/2025 3:36 AM EDT [facility] Monocytes Absolute 0.91(H) 0.30 - 0.90 10*3/uL LAB HEMATOLOGY METHOD 08/28/2025 3:36 AM EDT [facility] Eosinophils Absolute 0.19 0.00 - 0.50 10*3/uL LAB HEMATOLOGY METHOD 08/28/2025 3:36 AM EDT [facility] Basophils Absolute 0.06 0.00 - 0.10 10*3/uL LAB HEMATOLOGY METHOD 08/28/2025 3:36 AM EDT [facility] Immature Granulocytes Absolute 0.06 0.00 - 0.06 10*3/uL LAB HEMATOLOGY METHOD 08/28/2025 3:36 AM EDT [facility] Blood Venous blood specimen / Unknown Venipuncture / Unknown 08/28/2025 3:20 AM EDT 08/28/2025 3:27 AM EDT Narrative [facility] - 08/28/2025 3:36 AM EDT Therapeutic decision making should be based on absolute values, rather than percentages. us Bridgett Colindres STUNT DRIVER, DNP LAB BLOOD ORDERABLES Leia l Result [facility] [address] [place] [address] * (ABNORMAL) Troponin T, High Sensitivity, 2 Hour, Plasma (08/28/2025 3:20 AM EDT) Troponin T, High Sensitivity, 2 Hour 90(H) <14 ng/L 08/28/2025 3:53 AM EDT [facility] Troponin Delta 13(H) <10 ng/L 08/28/2025 3:53 AM EDT [facility] Troponin Delta Interpretation Significant 08/28/2025 3:53 AM EDT [facility] Comment:Significant change i n Troponin observed (from baseline). Troponin values greater than the 99th%ile with a rising or falling pattern (a change of >= 10 ng/L between the baseline and 2 hour samples) highly suggests acute cardiac injury. Acute cardiac injury does not equate to acute myocardial infarction. Additional clinical criteria are necessary for the diagnosis of acute myocardial infarction. Blood Venous blood specimen / Unknown Venipuncture / Unknown 08/28/2025 3:20 AM EDT 08/28/2025 3:27 AM EDT Shahida Fernando DO LAB BLOOD ORDERABLES Final Re sult Performing Organization Address [facility] Co de Phone Number [facility] [address] [place] [address] * Yasmin auris Surveillance by PCR (08/28/2025 3:13 AM EDT) Yasmin auris PCR Result Not Detected Not Detected 08/29/2025 7:[address] [facility] Swab (Axilla and Groin) Non-blood Collection / Unknown 08/28/2025 3:13 AM EDT 08/28/2025 3:58 AM EDT Narrative [facility] - 08/29/2025 7:57 AM EDT This PCR assay was developed and its performance characteristics determined by [facility] as appropriate for clinical purposes. This assay has not been cleared or approved by the FDA, but is performed in a CLIA regulated laboratory that is qualified to perform high-complexity testing. Sergey Stern MD LAB MICROBIOLOGY - GENERAL O RDERABLES Final Result Performing Organization Address City/[facility] Hospital/ZIP Co de Phone Number [facility] [address] [place] [address] * Multi Drug Resistance Test (08/28/2025 3:13 AM EDT) Culture No growth at day 1 08/29/2025 5:41 AM EDT [facility] Swab (Nares and Elda Rectal) Non-blood Collection / Unknown 08/28/2025 3:13 AM EDT 08/28/2025 3:58 AM EDT Narrative [facility] - 08/29/2025 5:41 AM EDT This test was developed and its performance characteristics determined by the [facility]. Although the media is FDA-approved, it is not FDA-approved for all specimen types submitted. The FDA has determined that such clearance or approval is not necessary. This test is used for surveillance purposes. It should not be regarded as investigational or for research. The [facility] is certified under the Clinical Laboratory Improvement Amendments of 1988 (CLIA-88) as qualified to perform high complexity clinical laboratory testing. us Sergey Stern MD LAB MICROBIOLOGY - GENERAL O RDERABLES Final Result [facility] [address] [place] [address] * XR Chest 1 View (08/28/2025 12:44 AM EDT) Anatomical Region Laterality Modality Chest Digital Radiogra phy Impressions 08/28/2025 10:03 AM EDT Mild bibasal atelectasis. Right upper lung nodular opacity is nonspecific and may reflect a protuberant osteophyte. Recommend further evaluation with noncontrast chest CT. CRITICAL RESULT: No. COMMUNICATION: Per this written report. Drafted by Julio Barrera MD on 08/28/2025 9:55 AM Final report signed by Julio Barrera MD on 08/28/2025 10:03 AM Narrative 08/28/2025 10:03 AM EDT CLINICAL INDICATION: Assess for pulmonary edema TECHNIQUE: XR CHEST 1 VIEW COMPARISON: None. FINDINGS: Heart is normal in size. Mediastinal contours and pulmonary vasculature within normal limits. Mild bibasal atelectasis, left greater than right. No pneumothorax. Nodular opacity in the right upper lobe overlying the right first rib. Procedure Note Julio Barrera MD - 08/28/2025 CLINICAL INDICATION: Assess for pulmonary edema TECHNIQUE: XR CHEST 1 VIEW COMPARISON: None. FINDINGS: Heart is normal in size. Mediastinal contours and pulmonary vasculaturewithin normal limits. Mild bibasal atelectasis, left greater than right.No pneumothorax. Nodular opacity in the right upper lobe overlying theright first rib. IMPRESSION: Mild bibasal atelectasis. Right upper lung nodular opacity is nonspecific and may reflect aprotuberant osteophyte. Recommend further evaluation with noncontrastchest CT. CRITICAL RESULT: No. COMMUNICATION: Per this written report. Drafted by Julio Barrera MD on 08/28/2025 9:55 AM Final report signed by Julio Barrera MD on 08/28/2025 10:03 AM Sergey Stern MD IMG XR PROCEDURES Final Resu lt * Urinalysis Microscopic Examination (08/28/2025 12:21 AM EDT) Urine Urine specimen obtained by clean catch procedure / Unknown Non-blood Collection / Unknown 08/28/2025 12:21 AM EDT 08/28/2025 12:25 AM EDT Sergey Stern MD LAB URINE ORDERABLES Final R esult [facility] [address] [place] [address] * (ABNORMAL) Urinalysis with reflex microscopic (08/28/2025 12:21 AM EDT) Color, Urine Yellow LAB URINALYSIS - AUTOMATED METHOD 08/28/2025 1:07 AM EDT [facility] Clarity, Urine Clear LAB URINALYSIS - AUTOMATED METHOD 08/28/2025 1:07 AM EDT [facility] Spec Caruthers, Urine 1.029 1.005 - 1.030 LAB URINALYSIS - AUTOMATED METHOD 08/28/2025 1:07 AM EDT [facility] pH, Urine 8.0 5.0 - 8.0 LAB URINALYSIS - AUTOMATED METHOD 08/28/2025 1:07 AM EDT [facility] Protein, Urine Trace(A) Negative mg/dL LAB URINALYSIS - AUTOMATED METHOD 08/28/2025 1:07 AM EDT [facility] Glucose, Urine 250(A) Negative mg/dL LAB URINALYSIS - AUTOMATED METHOD 08/28/2025 1:07 AM EDT [facility] Ketones, Urine Negative Negative mg/dL LAB URINALYSIS - AUTOMATED METHOD 08/28/2025 1:07 AM EDT [facility] Blood, Urine Trace(A) Negative LAB URINALYSIS - AUTOMATED METHOD 08/28/2025 1:07 AM EDT [facility] Bilirubin, Urine Negative Negative LAB URINALYSIS - AUTOMATED METHOD 08/28/2025 1:07 AM EDT [facility] Urobilinogen, Urine 0.2 0.2 to 1.0 mg/dL LAB URINALYSIS - AUTOMATED METHOD 08/28/2025 1:07 AM EDT [facility] Leukocytes, Urine Negative Negative LAB URINALYSIS - AUTOMATED METHOD 08/28/2025 1:07 AM EDT [facility] Nitrite, Urine Negative Negative LAB URINALYSIS - AUTOMATED METHOD 08/28/2025 1:07 AM EDT [facility] RBC, Urine 2 0 to 3 /HPF LAB URINALYSIS - AUTOMATED METHOD 08/28/2025 1:07 AM EDT [facility] Comment:This result was prev iously suppressed from the chart. WBC, Urine 0 - 5 0 to 5 /HPF LAB URINALYSIS - AUTOMATED METHOD 08/28/2025 1:07 AM EDT [facility] Comment:This result was prev iously suppressed from the chart. Squamous Epithelial Cells 0 - 2 0 to 5 /HPF LAB URINALYSIS - AUTOMATED METHOD 08/28/2025 1:07 AM EDT [facility] Comment:This result was prev iously suppressed from the chart. Hyaline Casts 0 - 2 0 to 5 /LPF LAB URINALYSIS - AUTOMATED METHOD 08/28/2025 1:07 AM EDT [facility] Comment:This result was prev iously suppressed from the chart. Bacteria, Urine Negative Negative LAB URINALYSIS - AUTOMATED METHOD 08/28/2025 1:07 AM EDT [facility] Comment:This result was prev iously suppressed from the chart. Urine Urine specimen obtained by clean catch procedure / Unknown Non-blood Collection / Unknown 08/28/2025 12:21 AM EDT 08/28/2025 12:25 AM EDT us Sergey Stern MD LAB URINE ORDERABLES Final R esult [facility] [address] [place] [address] * AR CRITICAL CARE, E/M 30-74 MINUTES (08/28/2025 12:12 AM EDT) Narrative Bridgett Colindres APRN, DNP - 08/28/2025 12:12 AM EDT Bridgett Colindres APRN, DNP 08/28/2025 3:11 AM Critical Care Performed by: Bridgett Colindres APRN, DNP Authorized by: Bridgett Colindres APRN, DNP Critical care provider statement: Critical care time (minutes): 75 Critical care time was exclusive of: Separately billable procedures and treating other patients Critical care was time spent personally by me on the following activities: Development of treatment plan with patient or surrogate, discussions with consultants, discussions with primary provider, evaluation of patient's response to treatment, examination of patient, ordering and performing treatments and interventions, ordering and review of laboratory studies and ordering and review of radiographic studies Bridgett Colindres APRN, DNP IN CLINIC/BEDSIDE ORDERAB LES Final Result * ECG Adult (08/28/2025 12:03 AM EDT) EKG DIAGNOSIS CLASS Abnormal MUSE ECG Ventricular Rate 115 BPM MUSE ECG Atrial Rate 115 BPM MUSE ECG AR Interval 132 ms MUSE ECG QRSD Interval 76 ms MUSE ECG QT Interval 362 ms MUSE ECG QTC Interval 500 ms MUSE ECG P Elk 66 degrees MUSE ECG R Elk 58 degrees MUSE ECG T Wave [place]k 60 degrees MUSE ECG Diagnosis Poor data quality, interpretation may be adversely affected MUSE ECG Diagnosis MUSE ECG Diagnosis Sinus tachycardia MUSE ECG Diagnosis Nonspecific ST abnormality MUSE ECG Diagnosis Prolonged QT MUSE ECG Diagnosis Abnormal ECG MUSE ECG Diagnosis MUSE ECG Diagnosis Confirmed by Carter Pearce ([id number]) on 08/28/2025 5:33:14 PM MUSE ECG 08/28/2025 12:0 3 AM EDT 08/28/2025 5:33 PM EDT Sergey Stern MD ECG ORDERABLES Final Result MUSE ECG * (ABNORMAL) Phosphorus (08/27/2025 11:11 PM EDT) Phosphorus, Plasma 2.2(L) 2.5 - 4.5 mg/dL 08/28/2025 12:05 AM EDT [facility] Blood Venous blood specimen / Unknown Venipuncture / Unknown 08/27/2025 11:11 PM EDT 08/27/2025 11:16 PM EDT us Sergey Stern MD LAB BLOOD ORDERABLES Final R esult [facility] [address] [place] [address] * (ABNORMAL) Magnesium (08/27/2025 11:11 PM EDT) Magnesium, Plasma 1.8(L) 1.9 - 2.4 mg/dL 08/28/2025 12:05 AM EDT [facility] Blood Venous blood specimen / Unknown Venipuncture / Unknown 08/27/2025 11:11 PM EDT 08/27/2025 11:16 PM EDT us Sergey Stern MD LAB BLOOD ORDERABLES Final R esult Performing Organization Address City/[facility] Hospital/ZIP Co de Phone Number [facility] [address] [place] [address] * (ABNORMAL) Troponin now and 120 min (08/27/2025 11:11 PM EDT) Troponin T, High Sensitivity, 0 Hour 103(H) <14 ng/L 08/27/2025 11:37 PM EDT [facility] Blood Venous blood specimen / Unknown Venipuncture / Unknown 08/27/2025 11:11 PM EDT 08/27/2025 11:16 PM EDT us Shahida Fernando DO LAB BLOOD ORDERABLES Final Re sult [facility] [address] [place] [address] * Anti Xa Level Unfractionated Heparin (08/27/2025 11:11 PM EDT) Anti Xa Level Unfractionated Heparin <0.11 <1.00 IU/mL 08/27/2025 11:[address] [facility] Blood Arterial blood specimen / Unknown Arterial Puncture / Unknown 08/27/2025 11:11 PM EDT 08/27/2025 11:16 PM EDT Narrative [facility] - 08/27/2025 11:31 PM EDT Therapeutic Range: UFH Full Dose and ACS/RI protocols*: 0.30 - 0.70 IU/mL UFH Low Dose protocol*: 0.25 - 0.50 IU/mL UFH prophylaxis: Not established [facility] LAB BLOOD ORDERABLES Final Re sult Performing Organization Address [facility] Co de Phone Number [facility] [address] [place] [address] * (ABNORMAL) Troponin T, High Sensitivity, 2 Hour, Plasma (08/27/2025 10:19 PM EDT) Pathologist [facility] Troponin T, High Sensitivity, 2 Hour 94(H) <14 ng/L 08/27/2025 10:41 PM EDT [facility] Troponin Delta Interpretation Not Calculated 08/27/2025 10:[address] [facility] Comment:Specimen not collect ed within acceptable timeframe. Delta will not be calculated. Blood Arterial blood specimen / Unknown Venipuncture / Unknown 08/27/2025 10:19 PM EDT 08/27/2025 10:21 PM EDT [facility] LAB BLOOD ORDERABLES Final Re sult Performing Organization Address [facility] Co de Phone Number [facility] [address] [place] [address] * Test Qualitative Plasma (08/27/2025 9:11 PM EDT) Pathologist [facility] Test Negative Negative 08/27/2025 9:49 PM EDT [facility] Blood Venous blood specimen / Unknown Venipuncture / Unknown 08/27/2025 9:11 PM EDT 08/27/2025 9:21 PM EDT Narrative [facility] - 08/27/2025 9:49 PM EDT Reference Range: Males and non- females: Negative. us Shahida Fernando DO LAB BLOOD ORDERABLES Final Re sult [facility] [address] [place] [address] * (ABNORMAL) Comprehensive Metabolic Panel (08/27/2025 9:11 PM EDT) Glucose, Plasma 171(H) 74 - 99 mg/dL 08/27/2025 9:49 PM EDT [facility] BUN, Plasma 14 7 - 21 mg/dL 08/27/2025 9:49 PM EDT [facility] Creatinine, Plasma 0.56(L) 0.60 - 1.10 mg/dL 08/27/2025 9:49 PM EDT [facility] BUN/Creatinine Ratio 25 08/27/2025 9:49 PM EDT [facility] Sodium, Plasma 135(L) 136 - 145 mmol/L 08/27/2025 9:49 PM EDT [facility] Potassium, Plasma 4.6 3.6 - 4.9 mmol/L 08/27/2025 9:49 PM EDT [facility] Comment:Hemolyzed - Potassiu m may be falsely elevated by approximately 0.8-1.7 mmol/L. Chloride, Plasma 102 97 - 107 mmol/L 08/27/2025 9:49 PM EDT [facility] CO2, Plasma 21(L) 22 - 29 mmol/L 08/27/2025 9:49 PM EDT [facility] Anion Gap 12 6 - 16 mmol/L 08/27/2025 9:49 PM EDT [facility] Total Calcium, Plasma 8.5(L) 8.9 - 10.2 mg/dL 08/27/2025 9:49 PM EDT [facility] Total Protein 6.8 6.3 - 7.9 g/dL 08/27/2025 9:49 PM EDT [facility] Albumin, Plasma 4.3 3.5 - 5.2 g/dL 08/27/2025 9:49 PM EDT [facility] AST, Plasma 46(H) 10 - 35 U/L 08/27/2025 9:49 PM EDT [facility] Comment:Hemolyzed, result ma y be falsely increased. ALT, Plasma 24 10 - 35 U/L 08/27/2025 9:49 PM EDT [facility] Alkaline Phosphatase, Plasma 97 46 - 142 U/L 08/27/2025 9:49 PM EDT [facility] Total Bilirubin, Plasma 0.7 0.2 - 1.1 mg/dL 08/27/2025 9:49 PM EDT [facility] eGFRcr 105.3 mL/min/1. 73m*2 08/27/2025 9:49 PM EDT [facility] Comment:Reported eGFRcr in m L/min/1.73m2 is based the CKD-EPI 2020 equation that does not use a race coefficient. Blood Venous blood specimen / Unknown Venipuncture / Unknown 08/27/2025 9:11 PM EDT 08/27/2025 9:21 PM EDT [facility] LAB BLOOD ORDERABLES Final Re sult [facility] [address] [place] [address] * APTT (PTT) (08/27/2025 9:11 PM EDT) aPTT 28 25 - 35 sec 08/27/2025 9:36 PM EDT [facility] Blood Venous blood specimen / Unknown Venipuncture / Unknown 08/27/2025 9:11 PM EDT 08/27/2025 9:21 PM EDT [facility] LAB BLOOD ORDERABLES Final Re sult [facility] [address] [place] [address] * Prothrombin Time (08/27/2025 9:11 PM EDT) Prothrombin Time 13.0 12.0 - 14.3 sec 08/27/2025 9:35 PM EDT [facility] INR 1.0 0.9 - 1.1 08/27/2025 9:35 PM EDT [facility] Blood Venous blood specimen / Unknown Venipuncture / Unknown 08/27/2025 9:11 PM EDT 08/27/2025 9:21 PM EDT Narrative [facility] - 08/27/2025 9:35 PM EDT OPTIMAL INR RANGES FOR PATIENT ON ORAL ANTICOAGULANT THERAPY Prevention of venous thromboembolism INR 2.0 to 3.0 In patients with heart disease: Atrial fibrillation INR 2.0 to 3.0 Valvular heart disease INR 2.0 to 3.0 Tissue heart valves INR 2.0 to 3.0 Mechanical prosthetic valves INR 2.5 to 3.5 Prevention of recurrent RI INR 2.5 to 3.5 us Shahida Fernando DO LAB BLOOD ORDERABLES Final Re sult Performing Organization Address City/[facility]/ZIP Co de Phone Number [facility] [address] [place] [address] * (ABNORMAL) CBC with Diff (08/27/2025 9:11 PM EDT) WBC Count 12.08(H) 3.70 - 10.30 10*3/uL LAB HEMATOLOGY METHOD 08/27/2025 9:26 PM EDT [facility] RBC Count 4.08 3.90 - 5.20 10*6/uL LAB HEMATOLOGY METHOD 08/27/2025 9:26 PM EDT [facility] HGB 13.2 11.2 - 15.7 g/dL LAB HEMATOLOGY METHOD 08/27/2025 9:26 PM EDT [facility] HCT 37.6 34.0 - 45.0 % LAB HEMATOLOGY METHOD 08/27/2025 9:26 PM EDT [facility] Platelet Count 289 155 - 369 10*3/uL LAB HEMATOLOGY METHOD 08/27/2025 9:26 PM EDT [facility] MCV 92 79 - 98 fL LAB HEMATOLOGY METHOD 08/27/2025 9:26 PM EDT [facility] MCH 32.4(H) 26.0 - 32.0 pg LAB HEMATOLOGY METHOD 08/27/2025 9:26 PM EDT [facility] MCHC 35.1 30.7 - 35.5 g/dL LAB HEMATOLOGY METHOD 08/27/2025 9:26 PM EDT [facility] RDW 11.6 11.5 - 14.5 % LAB HEMATOLOGY METHOD 08/27/2025 9:26 PM EDT [facility] MPV 8.7(L) 8.8 - 12.5 fL LAB HEMATOLOGY METHOD 08/27/2025 9:26 PM EDT [facility] nRBC 0.0 <=0.0 per 100 WBCs LAB HEMATOLOGY METHOD 08/27/2025 9:26 PM EDT [facility] Differential Type Automated LAB HEMATOLOGY METHOD 08/27/2025 9:26 PM EDT [facility] Neutrophils % 81 % LAB HEMATOLOGY METHOD 08/27/2025 9:26 PM EDT [facility] Lymphocytes % 12 % LAB HEMATOLOGY METHOD 08/27/2025 9:26 PM EDT [facility] Monocytes % 5 % LAB HEMATOLOGY METHOD 08/27/2025 9:26 PM EDT [facility] Eosinophils % 2 % LAB HEMATOLOGY METHOD 08/27/2025 9:26 PM EDT [facility] Basophils % 0 % LAB HEMATOLOGY METHOD 08/27/2025 9:26 PM EDT [facility] Immature Granulocytes % 0 % LAB HEMATOLOGY METHOD 08/27/2025 9:26 PM EDT [facility] Neutrophils Absolute 9.71(H) 1.60 - 6.10 10*3/uL LAB HEMATOLOGY METHOD 08/27/2025 9:26 PM EDT [facility] Lymphocytes Absolute 1.40 1.20 - 3.90 10*3/uL LAB HEMATOLOGY METHOD 08/27/2025 9:26 PM EDT [facility] Monocytes Absolute 0.63 0.30 - 0.90 10*3/uL LAB HEMATOLOGY METHOD 08/27/2025 9:26 PM EDT [facility] Eosinophils Absolute 0.25 0.00 - 0.50 10*3/uL LAB HEMATOLOGY METHOD 08/27/2025 9:26 PM EDT [facility] Basophils Absolute 0.05 0.00 - 0.10 10*3/uL LAB HEMATOLOGY METHOD 08/27/2025 9:26 PM EDT [facility] Immature Granulocytes Absolute 0.04 0.00 - 0.06 10*3/uL LAB HEMATOLOGY METHOD 08/27/2025 9:26 PM EDT [facility] Blood Venous blood specimen / Unknown Venipuncture / Unknown 08/27/2025 9:11 PM EDT 08/27/2025 9:23 PM EDT Narrative [facility] - 08/27/2025 9:26 PM EDT Therapeutic decision making should be based on absolute values, rather than percentages. us DNsolution DO LAB BLOOD ORDERABLES Final Re sult Performing Organization Address City/[facility]/ZIP Co de Phone Number [facility] [address] [place] [address] * ECG Adult (08/27/2025 9:10 PM EDT) EKG DIAGNOSIS CLASS Abnormal MUSE ECG Ventricular Rate 85 BPM MUSE ECG Atrial Rate 85 BPM MUSE ECG AR Interval 162 ms MUSE ECG QRSD Interval 78 ms MUSE ECG QT Interval 436 ms MUSE ECG QTC Interval 518 ms MUSE ECG P [place] 65 degrees MUSE ECG R [place] 38 degrees MUSE ECG T [place] 38 degrees MUSE ECG Diagnosis Normal sinus rhythm MUSE ECG Diagnosis Low voltage QRS MUSE ECG Diagnosis Nonspecific ST abnormality MUSE ECG Diagnosis Prolonged QT MUSE ECG Diagnosis Abnormal ECG MUSE ECG Diagnosis MUSE ECG Diagnosis Confirmed by Carter Pearce ([id number]) on 08/28/2025 5:21:57 PM MUSE ECG 08/27/2025 9:10 PM EDT 08/28/2025 5:21 PM EDT us [employer] DO ECG ORDERABLES Final Result Performing Organization Address City/[facility]/ZIP Co de Phone Number MUSE ECG * CT Angio Neck (08/27/2025 9:06 PM EDT) Anatomical Region Laterality Modality Carotid Artery Computed Tomogra phy Impressions 08/27/2025 9:31 PM EDT Intraparenchymal bleed in the posterior left frontal lobe with mild surrounding edema as described above. Additional small volume subarachnoid hemorrhage in the left frontal lobe. No significant midline shift. No evidence of vascular injury in the head or neck. Incidental note of soft tissue stranding and subcutaneous emphysema seen throughout the neck which may be postsurgical given patient's history of recent cervical spine fusion procedure. CRITICAL RESULT: Yes. COMMUNICATION: The critical findings were discussed via phone with Chasity Caceres DO on 08/27/2025 9:18 PM by Jennifer Monge MD with acknowledgment of the results . Preliminary report signed by Jennifer Monge MD on 08/27/2025 9:29 PM By electronically signing this report, I, the attending physician, attest that I have personally reviewed the images/data for the above examination(s) and agree with the final edited report. Drafted by Jennifer Monge MD on 08/27/2025 9:08 PM Final report signed by Verena Whitman MD on 08/27/2025 9:31 PM Narrative 08/27/2025 9:31 PM EDT CLINICAL INDICATION: Neuro deficit, acute, stroke suspected TECHNIQUE: Routine contiguous axial CT images of the head were obtained without contrast administration. Contrast-enhanced CT angiogram of the head and neck was obtained after administration of intravenous iodinated contrast using 0.6 mm axial slice thickness with multiplanar reformations and maximum intensity projections. In addition, 3D images were created and reviewed. AI Utilization: Not applicable. Total DLP (Dose-Length Product): 2144.63 mGy.cm (accession [id number]), 2144.63 mGy.cm (accession [id number]), 2144.63 mGy.cm (accession [id number]). Please note: The reported value represents the total of one or more individual components during the CT acquisition on this date and at this time, and as such, the same value may appear in more than one CT report depending on the interpreting/reporting physicians. COMPARISON: None. FINDINGS: CT Head without: Intraparenchymal hemorrhage in the left posterior frontal lobe measuring 3.5 x 2.1 x 4 cm. There is surrounding hypodensity suggestive of edema. Additional hyperdensities along the sulci of the left frontal lobe indicative of small subarachnoid hemorrhage. There is mild mass effect on the adjacent parenchyma. No significant midline shift. No evidence of acute ischemia. Normal ventricular size and configuration. Patent basal cisterns. No displaced or depressed calvarial fractures. The visualized paranasal sinuses and mastoid air cells are clear. CTA Head: There is normal vascular anatomy. Mild calcified plaque of the intracranial ICAs. Focal moderate narrowing of the left anterior cerebral artery as seen on series 4, images 120-130. There is no evidence of vascular injury, specifically no arterial occlusion, dissection, or pseudoaneurysm. The intracranial venous structures are also fairly well opacified and appear unremarkable. CTA Neck: There is normal vascular anatomy. There is no evidence of vascular injury, specifically no arterial stenosis, occlusion, dissection, or pseudoaneurysm. There is 0% stenosis of the ICA origins by NASCET criteria. Soft tissue stranding and subcutaneous emphysema seen throughout the neck, greater on the left. Given patient's history of cervical spine ACDF performed yesterday, this may be postsurgical in nature. Anterior fusion hardware spans C4-T1. Procedure Note Verena Whitman MD - 08/27/2025 CLINICAL INDICATION: Neuro deficit, acute, stroke suspected TECHNIQUE: Routine contiguous axial CT images of the head were obtained withoutcontrast administration. Contrast-enhanced CT angiogram of the head and neck was obtained afteradministration of intravenous iodinated contrast using 0.6 mm axial slicethickness with multiplanar reformations and maximum intensity projections.In addition, 3D images were created and reviewed. AI Utilization: Not applicable. Total DLP (Dose-Length Product): 2144.63 mGy.cm (accession [id number]),2144.63 mGy.cm (accession [id number]), 2144.63 mGy.cm (accession [id number]).Please note: The reported value represents the total of one or moreindividual components during the CT acquisition on this date and at thistime, and as such, the same value may appear in more than one CT reportdepending on the interpreting/reporting physicians. COMPARISON: None. FINDINGS: CT Head without: Intraparenchymal hemorrhage in the left posterior frontal lobe measuring3.5 x 2.1 x 4 cm. There is surrounding hypodensity suggestive of edema.Additional hyperdensities along the sulci of the left frontal lobeindicative of small subarachnoid hemorrhage. There is mild mass effect onthe adjacent parenchyma. No significant midline shift. No evidence ofacute ischemia. Normal ventricular size and configuration. Patent basalcisterns. No displaced or depressed calvarial fractures. The visualized paranasalsinuses and mastoid air cells are clear. CTA Head: There is normal vascular anatomy. Mild calcified plaque of theintracranial ICAs. Focal moderate narrowing of the left anterior cerebralartery as seen on series 4, images 120-130. There is no evidence ofvascular injury, specifically no arterial occlusion, dissection, orpseudoaneurysm. The intracranial venous structures are also fairly wellopacified and appear unremarkable. CTA Neck: There is normal vascular anatomy. There is no evidence of vascular injury,specifically no arterial stenosis, occlusion, dissection, orpseudoaneurysm. There is 0% stenosis of the ICA origins by NASCETcriteria. Soft tissue stranding and subcutaneous emphysema seen throughout the neck,greater on the left. Given patient's history of cervical spine ACDFperformed yesterday, this may be postsurgical in nature. Anterior fusionhardware spans C4-T1. IMPRESSION: Intraparenchymal bleed in the posterior left frontal lobe with mildsurrounding edema as described above. Additional small volume subarachnoidhemorrhage in the left frontal lobe. No significant midline shift. No evidence of vascular injury in the head or neck. Incidental note of soft tissue stranding and subcutaneous emphysema seenthroughout the neck which may be postsurgical given patient's history ofrecent cervical spine fusion procedure. CRITICAL RESULT: Yes. COMMUNICATION: The critical findings were discussed via phone with Chasity Caceres DO on08/27/2025 9:18 PM by Jennifer Monge MD with acknowledgment of the results. Preliminary report signed by Jennifer Monge MD on 08/27/2025 9:29 PM By electronically signing this report, I, the attending physician, attestthat I have personally reviewed the images/data for the aboveexamination(s) and agree with the final edited report. Drafted by Jennifer Monge MD on 08/27/2025 9:08 PM Final report signed by Verena Whitman MD on 08/27/2025 9:31 PM us Shahida Fernando IMG CT PROCEDURES Final Resul t * CT Angio Head (08/27/2025 9:06 PM EDT) Anatomical Region Laterality Modality [place] Computed Tomogr aphy Impressions 08/27/2025 9:31 PM EDT Intraparenchymal bleed in the posterior left frontal lobe with mild surrounding edema as described above. Additional small volume subarachnoid hemorrhage in the left frontal lobe. No significant midline shift. No evidence of vascular injury in the head or neck. Incidental note of soft tissue stranding and subcutaneous emphysema seen throughout the neck which may be postsurgical given patient's history of recent cervical spine fusion procedure. CRITICAL RESULT: Yes. COMMUNICATION: The critical findings were discussed via phone with Chasity Caceres DO on 08/27/2025 9:18 PM by Jennifer Monge MD with acknowledgment of the results . Preliminary report signed by Jennifer Monge MD on 08/27/2025 9:29 PM By electronically signing this report, I, the attending physician, attest that I have personally reviewed the images/data for the above examination(s) and agree with the final edited report. Drafted by Jennifer Monge MD on 08/27/2025 9:08 PM Final report signed by Verena Whitman MD on 08/27/2025 9:31 PM Narrative 08/27/2025 9:31 PM EDT CLINICAL INDICATION: Neuro deficit, acute, stroke suspected TECHNIQUE: Routine contiguous axial CT images of the head were obtained without contrast administration. Contrast-enhanced CT angiogram of the head and neck was obtained after administration of intravenous iodinated contrast using 0.6 mm axial slice thickness with multiplanar reformations and maximum intensity projections. In addition, 3D images were created and reviewed. AI Utilization: Not applicable. Total DLP (Dose-Length Product): 2144.63 mGy.cm (accession [id number]), 2144.63 mGy.cm (accession [id number]), 2144.63 mGy.cm (accession [id number]). Please note: The reported value represents the total of one or more individual components during the CT acquisition on this date and at this time, and as such, the same value may appear in more than one CT report depending on the interpreting/reporting physicians. COMPARISON: None. FINDINGS: CT Head without: Intraparenchymal hemorrhage in the left posterior frontal lobe measuring 3.5 x 2.1 x 4 cm. There is surrounding hypodensity suggestive of edema. Additional hyperdensities along the sulci of the left frontal lobe indicative of small subarachnoid hemorrhage. There is mild mass effect on the adjacent parenchyma. No significant midline shift. No evidence of acute ischemia. Normal ventricular size and configuration. Patent basal cisterns. No displaced or depressed calvarial fractures. The visualized paranasal sinuses and mastoid air cells are clear. CTA Head: There is normal vascular anatomy. Mild calcified plaque of the intracranial ICAs. Focal moderate narrowing of the left anterior cerebral artery as seen on series 4, images 120-130. There is no evidence of vascular injury, specifically no arterial occlusion, dissection, or pseudoaneurysm. The intracranial venous structures are also fairly well opacified and appear unremarkable. CTA Neck: There is normal vascular anatomy. There is no evidence of vascular injury, specifically no arterial stenosis, occlusion, dissection, or pseudoaneurysm. There is 0% stenosis of the ICA origins by NASCET criteria. Soft tissue stranding and subcutaneous emphysema seen throughout the neck, greater on the left. Given patient's history of cervical spine ACDF performed yesterday, this may be postsurgical in nature. Anterior fusion hardware spans C4-T1. Procedure Note Verena Whitman MD - 08/27/2025 CLINICAL INDICATION: Neuro deficit, acute, stroke suspected TECHNIQUE: Routine contiguous axial CT images of the head were obtained withoutcontrast administration. Contrast-enhanced CT angiogram of the head and neck was obtained afteradministration of intravenous iodinated contrast using 0.6 mm axial slicethickness with multiplanar reformations and maximum intensity projections.In addition, 3D images were created and reviewed. AI Utilization: Not applicable. Total DLP (Dose-Length Product): 2144.63 mGy.cm (accession [id number]),2144.63 mGy.cm (accession [id number]), 2144.63 mGy.cm (accession [id number]).Please note: The reported value represents the total of one or moreindividual components during the CT acquisition on this date and at thistime, and as such, the same value may appear in more than one CT reportdepending on the interpreting/reporting physicians. COMPARISON: None. FINDINGS: CT Head without: Intraparenchymal hemorrhage in the left posterior frontal lobe measuring3.5 x 2.1 x 4 cm. There is surrounding hypodensity suggestive of edema.Additional hyperdensities along the sulci of the left frontal lobeindicative of small subarachnoid hemorrhage. There is mild mass effect onthe adjacent parenchyma. No significant midline shift. No evidence ofacute ischemia. Normal ventricular size and configuration. Patent basalcisterns. No displaced or depressed calvarial fractures. The visualized paranasalsinuses and mastoid air cells are clear. CTA Head: There is normal vascular anatomy. Mild calcified plaque of theintracranial ICAs. Focal moderate narrowing of the left anterior cerebralartery as seen on series 4, images 120-130. There is no evidence ofvascular injury, specifically no arterial occlusion, dissection, orpseudoaneurysm. The intracranial venous structures are also fairly wellopacified and appear unremarkable. CTA Neck: There is normal vascular anatomy. There is no evidence of vascular injury,specifically no arterial stenosis, occlusion, dissection, orpseudoaneurysm. There is 0% stenosis of the ICA origins by NASCETcriteria. Soft tissue stranding and subcutaneous emphysema seen throughout the neck,greater on the left. Given patient's history of cervical spine ACDFperformed yesterday, this may be postsurgical in nature. Anterior fusionhardware spans C4-T1. IMPRESSION: Intraparenchymal bleed in the posterior left frontal lobe with mildsurrounding edema as described above. Additional small volume subarachnoidhemorrhage in the left frontal lobe. No significant midline shift. No evidence of vascular injury in the head or neck. Incidental note of soft tissue stranding and subcutaneous emphysema seenthroughout the neck which may be postsurgical given patient's history ofrecent cervical spine fusion procedure. CRITICAL RESULT: Yes. COMMUNICATION: The critical findings were discussed via phone with Chasity Caceres DO 08/27/2025 9:18 PM by Jennifer Monge MD with acknowledgment of the results. Preliminary report signed by Jennifer Monge MD on 08/27/2025 9:29 PM By electronically signing this report, I, the attending physician, attestthat I have personally reviewed the images/data for the aboveexamination(s) and agree with the final edited report. Drafted by Jennifer Monge MD on 08/27/2025 9:08 PM Final report signed by Verena Whitman MD on 08/27/2025 9:31 PM us Shahida Fernando DO IMG CT PROCEDURES Final Resul t * CT Head wo IV contrast (08/27/2025 9:06 PM EDT) Anatomical Region Laterality Modality Head Computed Tomogra phy Impressions 08/27/2025 9:31 PM EDT Intraparenchymal bleed in the posterior left frontal lobe with mild surrounding edema as described above. Additional small volume subarachnoid hemorrhage in the left frontal lobe. No significant midline shift. No evidence of vascular injury in the head or neck. Incidental note of soft tissue stranding and subcutaneous emphysema seen throughout the neck which may be postsurgical given patient's history of recent cervical spine fusion procedure. CRITICAL RESULT: Yes. COMMUNICATION: The critical findings were discussed via phone with Chasity Caceres DO on 08/27/2025 9:18 PM by Jennifer Monge MD with acknowledgment of the results . Preliminary report signed by Jennifer Monge MD on 08/27/2025 9:29 PM By electronically signing this report, I, the attending physician, attest that I have personally reviewed the images/data for the above examination(s) and agree with the final edited report. Drafted by Jennifer Monge MD on 08/27/2025 9:08 PM Final report signed by Verena Whitman MD on 08/27/2025 9:31 PM Narrative 08/27/2025 9:31 PM EDT CLINICAL INDICATION: Neuro deficit, acute, stroke suspected TECHNIQUE: Routine contiguous axial CT images of the head were obtained without contrast administration. Contrast-enhanced CT angiogram of the head and neck was obtained after administration of intravenous iodinated contrast using 0.6 mm axial slice thickness with multiplanar reformations and maximum intensity projections. In addition, 3D images were created and reviewed. AI Utilization: Not applicable. Total DLP (Dose-Length Product): 2144.63 mGy.cm (accession [id number]), 2144.63 mGy.cm (accession [id number]), 2144.63 mGy.cm (accession [id number]). Please note: The reported value represents the total of one or more individual components during the CT acquisition on this date and at this time, and as such, the same value may appear in more than one CT report depending on the interpreting/reporting physicians. COMPARISON: None. FINDINGS: CT Head without: Intraparenchymal hemorrhage in the left posterior frontal lobe measuring 3.5 x 2.1 x 4 cm. There is surrounding hypodensity suggestive of edema. Additional hyperdensities along the sulci of the left frontal lobe indicative of small subarachnoid hemorrhage. There is mild mass effect on the adjacent parenchyma. No significant midline shift. No evidence of acute ischemia. Normal ventricular size and configuration. Patent basal cisterns. No displaced or depressed calvarial fractures. The visualized paranasal sinuses and mastoid air cells are clear. CTA Head: There is normal vascular anatomy. Mild calcified plaque of the intracranial ICAs. Focal moderate narrowing of the left anterior cerebral artery as seen on series 4, images 120-130. There is no evidence of vascular injury, specifically no arterial occlusion, dissection, or pseudoaneurysm. The intracranial venous structures are also fairly well opacified and appear unremarkable. CTA Neck: There is normal vascular anatomy. There is no evidence of vascular injury, specifically no arterial stenosis, occlusion, dissection, or pseudoaneurysm. There is 0% stenosis of the ICA origins by NASCET criteria. Soft tissue stranding and subcutaneous emphysema seen throughout the neck, greater on the left. Given patient's history of cervical spine ACDF performed yesterday, this may be postsurgical in nature. Anterior fusion hardware spans C4-T1. Procedure Note Verena Whitman MD - 08/27/2025 CLINICAL INDICATION: Neuro deficit, acute, stroke suspected TECHNIQUE: Routine contiguous axial CT images of the head were obtained withoutcontrast administration. Contrast-enhanced CT angiogram of the head and neck was obtained afteradministration of intravenous iodinated contrast using 0.6 mm axial slicethickness with multiplanar reformations and maximum intensity projections.In addition, 3D images were created and reviewed. AI Utilization: Not applicable. Total DLP (Dose-Length Product): 2144.63 mGy.cm (accession [id number]),2144.63 mGy.cm (accession [id number]), 2144.63 mGy.cm (accession [id number]).Please note: The reported value represents the total of one or moreindividual components during the CT acquisition on this date and at thistime, and as such, the same value may appear in more than one CT reportdepending on the interpreting/reporting physicians. COMPARISON: None. FINDINGS: CT Head without: Intraparenchymal hemorrhage in the left posterior frontal lobe measuring3.5 x 2.1 x 4 cm. There is surrounding hypodensity suggestive of edema.Additional hyperdensities along the sulci of the left frontal lobeindicative of small subarachnoid hemorrhage. There is mild mass effect onthe adjacent parenchyma. No significant midline shift. No evidence ofacute ischemia. Normal ventricular size and configuration. Patent basalcisterns. No displaced or depressed calvarial fractures. The visualized paranasalsinuses and mastoid air cells are clear. CTA Head: There is normal vascular anatomy. Mild calcified plaque of theintracranial ICAs. Focal moderate narrowing of the left anterior cerebralartery as seen on series 4, images 120-130. There is no evidence ofvascular injury, specifically no arterial occlusion, dissection, orpseudoaneurysm. The intracranial venous structures are also fairly wellopacified and appear unremarkable. CTA Neck: There is normal vascular anatomy. There is no evidence of vascular injury,specifically no arterial stenosis, occlusion, dissection, orpseudoaneurysm. There is 0% stenosis of the ICA origins by NASCETcriteria. Soft tissue stranding and subcutaneous emphysema seen throughout the neck,greater on the left. Given patient's history of cervical spine ACDFperformed yesterday, this may be postsurgical in nature. Anterior fusionhardware spans C4-T1. IMPRESSION: Intraparenchymal bleed in the posterior left frontal lobe with mildsurrounding edema as described above. Additional small volume subarachnoidhemorrhage in the left frontal lobe. No significant midline shift. No evidence of vascular injury in the head or neck. Incidental note of soft tissue stranding and subcutaneous emphysema seenthroughout the neck which may be postsurgical given patient's history ofrecent cervical spine fusion procedure. CRITICAL RESULT: Yes. COMMUNICATION: The critical findings were discussed via phone with Chasity Caceres DO on08/27/2025 9:18 PM by Jennifer Monge MD with acknowledgment of the results. Preliminary report signed by Jennifer Monge MD on 08/27/2025 9:29 PM By electronically signing this report, I, the attending physician, attestthat I have personally reviewed the images/data for the aboveexamination(s) and agree with the final edited report. Drafted by Jennifer Monge MD on 08/27/2025 9:08 PM Final report signed by Verena Whitman MD on 08/27/2025 9:31 PM Shahida Fernando DO IMG CT PROCEDURES Final Resul t * (ABNORMAL) POCT glucose meter (08/27/2025 8:52 PM EDT) POCT Glucose 175(H) 74 - 99 mg/dL 08/27/2025 8:53 PM EDT [facility] Comment:Accuracy of a glucos e result obtained from a capillary whole blood specimen relies upon adequate, non-compromised capillary blood flow. If the capillary glucose result is not consistent with the patient's clinical signs and symptoms, glucose testing should be repeated with either an arterial or venous sample on the glucometer or sent to the main labortory for testing. Comment 08/27/2025 8:53 PM EDT [facility] Manager Of Network ID Kriss Arango 08/27/2025 8:53 PM EDT [facility] Device ID [id number] 08/27/2025 8:53 PM EDT [facility] Specimen Type POC Capillary 08/27/2025 8:53 PM EDT [facility] Blood Capillary blood specimen / Unknown 08/27/2025 8:52 PM EDT 08/27/2025 8:53 PM EDT us Generic Provider Poct LAB POINT OF CARE TEST DOCKED DEVICE UNSOLICITED RESULTS Final Result [facility] [address] [place] [address] * AR INSERT CATH,ART,PERCUT,SHORTTERM, HC INSERT CATH,ART,PERCUT,SHORTTERM (08/27/2025 8:46 PM EDT) Narrative Shahida Fernando DO - 08/27/2025 8:46 PM EDT Shahida Fernando DO 08/28/2025 3:09 PM Arterial Line (Insert) Performed by: Chasity Caceres DO Authorized by: Shahida Fernando DO Consent: Consent obtained: Verbal Consent given by: Patient Risks, benefits, and alternatives were discussed: yes Risks discussed: Bleeding, infection and ischemia [place] protocol: Patient identity confirmed: Verbally with patient Attending Supervision?: no Indications: Indications: hemodynamic monitoring and multiple ABGs Sedation: Sedation type: None Procedure details: Location: R radial Needle gauge: 20 G Number of attempts: 1 Transducer: waveform confirmed Post-procedure details: Post-procedure: Sterile dressing applied CMS: Normal Procedure completion: Tolerated Shahida Fernando DO IV THERAPY ORDERABLES Final R esult documented in this encounter Visit Diagnoses Diagnosis Acute intra-cranial hemorrhage (CMS/HCC)- Primary Acute intra-cranial hemorrhage (CMS/HCC) Intracranial hemorrhage (CMS/HCC) Unspecified intracranial hemorrhage HTN (hypertension) Unspecified essential hypertension SAH (subarachnoid hemorrhage) Subarachnoid hemorrhage Cerebral edema (CMS/HCC) Cerebral edema Leukocytosis Leukocytosis, unspecified Hyperglycemia Other abnormal glucose Electrolyte disturbance Electrolyte and fluid disorders not elsewhere classified NSTEMI (non-ST elevated myocardial infarction) Acute myocardial infarction, subendocardial infarction, episode of care unspecified Feeding difficulty Feeding difficulties and mismanagement Uremia Unspecified renal failure Thrombocytosis Essential thrombocythemia Impaired mobility and ADLs Anxiety and depression Hyponatremia Hyposmolality and/or hyponatremia History of spinal fusion QT prolongation documented in this encounter Admitting Diagnoses Diagnosis Acute intra-cranial hemorrhage (CMS/HCC) documented in this encounter Administered Medications Inactive Administered Medications - up to 3 most recent administrations Medication Order MAR Action Action Date Dose Rate Site acetaminophen (Tylenol) 160 MG/5ML solution 1,000 mg 1,000 mg, Nasogastric, Every 6 hours PRN, Starting on Sat08/27/25 at 2349, Until Roxana 09/09/25 at 1656, Routine, Mild Plus Pain with CPOT DVPRS FLACC PAINAD NPASS NRS Delatorre-Richardson Faces score of 1 or greater OR NIPS score 2 or greater Given 09/03/2025 2:41 PM EDT 1,000 mg Given 09/02/2025 1:09 AM EDT 1,624 mg Given 09/01/2025 8:05 AM EDT 1,000 mg acetaminophen (Tylenol) suppository 650 mg 650 mg, Rectal, Every 6 hours PRN, Starting on Sat08/27/25 at 2349, Until Roxana 09/09/25 at 1656, Routine, Mild Plus Pain with CPOT DVPRS FLACC PAINAD NPASS NRS Delatorre-Richardson Faces score of 1 or greater OR NIPS score 2 or greater acetaminophen (Tylenol) tablet 1,000 mg 1,000 mg, Oral, Every 6 hours PRN, Starting on Sat08/27/25 at 2349, Until Roxana 09/09/25 at 1656, Routine, Mild Plus Pain with CPOT DVPRS FLACC PAINAD NPASS NRS Delatorre-Richardson Faces score of 1 or greater OR NIPS score 2 or greater Given 09/08/2025 8:08 PM EST 1,000 mg Given 09/08/2025 11:25 AM EST 1,000 mg Given 09/08/2025 2:53 AM EST 1,000 mg barium sulfate (Varibar Burgin) 40 % suspension 120 mL 120 mL, Oral, Once in imaging, 1 dose, Starting on Sat08/30/25 at 0955, Until Sat08/30/25 at 1036, Routine, Imaging Protocol Orders Given 08/30/2025 10:36 AM EDT 120 mL barium sulfate (Varibar Pudding) 40 % oral paste 15 mL 15 mL, Oral, Once in imaging, 1 dose, Starting on Sat08/30/25 at 0955, Until Sat08/30/25 at 1036, Routine, Imaging Protocol Orders Given 08/30/2025 10:36 AM EDT 15 mL barium sulfate (Varibar Pudding) 40 % oral paste 15 mL 15 mL, Oral, Once in imaging, 1 dose, Starting on Sat09/07/25 at 1532, Until Sat09/07/25 at 1556, Routine, Imaging Protocol Orders Given 09/07/2025 3:56 PM EST 15 mL barium sulfate (Varibar THIN Liquid) 40 % suspension 120 mL 120 mL, Oral, Once in imaging, 1 dose, Starting on Sat08/30/25 at 0955, Until Sat08/30/25 at 1036, Routine, Imaging Protocol Orders Given 08/30/2025 10:36 AM EDT 120 mL barium sulfate (Varibar THIN Liquid) 40 % suspension 120 mL 120 mL, Oral, Once in imaging, 1 dose, Starting on Sat09/07/25 at 1532, Until Sat09/07/25 at 1556, Routine, Imaging Protocol Orders Given 09/07/2025 3:56 PM EST 120 mL bisacodyl (Dulcolax) suppository 10 mg 10 mg, Rectal, Daily PRN, Starting on Sat08/31/25 at 1004, Until Sat09/09/25 at 1656, Routine, constipation bisacodyl (Dulcolax) suppository 10 mg 10 mg, Rectal, Once, 1 dose, On Sat09/01/25 at 0830, Routine Given 09/01/2025 8:04 AM EDT 10 mg carvedilol (Coreg) tablet 12.5 mg 12.5 mg, Oral, 2 times daily, First dose (after last modification) on Sat08/28/25 at 2100, Until Discontinued, Routine Given 09/09/2025 8:22 AM EST 12.5 mg Given 09/08/2025 8:09 PM EST 12.5 mg Given 09/08/2025 8:15 AM EST 12.5 mg carvedilol (Coreg) tablet 6.25 mg 6.25 mg, Oral, 2 times daily, First dose on Sat08/28/25 at 1200, Until Discontinued, Routine Given 08/28/2025 1:04 PM EDT 6.25 mg dantrolene (Dantrium) capsule 25 mg 25 mg, Oral, Daily, First dose on Sat09/08/25 at 1200, Until Discontinued, Routine Given 09/09/2025 8:22 AM EST 25 mg Given 09/08/2025 11:33 AM EST 25 mg DULoxetine (Cymbalta) DR capsule 60 mg 60 mg, Oral, Daily, First dose on Sat09/07/25 at 0900, Until Discontinued, Routine Given 09/09/2025 8:22 AM EST 60 mg Given 09/08/2025 8:16 AM EST 60 mg Given 09/07/2025 9:27 AM EST 60 mg enoxaparin (Lovenox) syringe 40 mg 40 mg, Subcutaneous, Daily, First dose on Sat08/30/25 at 1045, Until Discontinued, Routine Given 09/09/2025 8:23 AM EST 40 mg Left Lower Abdomen Given 09/08/2025 8:15 AM EST 40 mg Le ft Lower Abdomen Given 09/07/2025 9:27 AM EST 40 mg Le ft Lower Abdomen famotidine PF (Pepcid) injection 20 mg 20 mg, Intravenous, 2 times daily, First dose on Sat08/27/25 at 2355, Until Discontinued, Routine Given 08/28/2025 12:17 AM EDT 20 mg fentaNYL (Sublimaze) injection 75 mcg 75 mcg (rounded from 73.3 mcg = 1 mcg/kg 73.3 kg), Intravenous, Once, 1 dose, On Sat08/27/25 at 2120, STAT Given 08/27/2025 9:25 PM EDT 75 mcg fosfomycin (Monurol) packet 3 g 3 g, Oral, Once, 1 dose, On Sat09/06/25 at 1145, Routine Given 09/06/2025 12:16 PM EST 3 g gabapentin (Neurontin) capsule 100 mg 100 mg, Oral, 2 times daily PRN, Starting on Sat08/31/25 at 1158, Until Sat09/08/25 at 2336, Routine, pain associated with spinal fusion Given 09/07/2025 9:28 AM EST 100 mg Given 09/03/2025 11:00 AM EDT 100 mg Given 09/02/2025 9:41 AM EDT 100 mg hydrALAZINE (Apresoline) injection 20 mg 20 mg, Intravenous, Every 1 hour PRN, Starting on Sat08/27/25 at 2349, Until Roxana 09/02/25 at 0955, Routine, high blood pressure, SBP > 150, Second-Line Given 08/31/2025 12:17 AM EDT 20 mg Given 08/29/2025 5:03 AM EDT 20 mg iohexol (OMNIPaque) 300 MG/ML injection 300 mL 300 mL, Other, Once in imaging, 1 dose, Starting on Sat08/29/25 at 1149, Until Roxana 09/09/25 at 1656, Routine, Imaging Protocol Orders iohexol (OMNIPaque) 350 MG/ML injection 100 mL 100 mL, Intravenous, Once in imaging, 1 dose, Starting on Sat08/27/25 at 2047, Until Sat08/27/25 at 2054, Routine, Imaging Protocol Orders Given 08/27/2025 8:54 PM EDT 60 mL labetalol (Normodyne,Trandate) injection 10 mg 10 mg, Intravenous, Every 1 hour PRN, Starting on Sat08/27/25 at 2349, Until Roxana 09/02/25 at 0955, Routine, high blood pressure, SBP > 150, First-Line, HOLD for HR < 60 Given 08/31/2025 1:31 AM EDT 10 mg levothyroxine (Synthroid, Levoxyl) tablet 100 mcg 100 mcg, Nasogastric, Every morning, First dose on 08/29/25 at 0600, Until Discontinued, Routine Given 09/01/2025 6:47 AM EDT 100 mcg Given 08/30/2025 5:45 AM EDT 100 mcg Given 08/29/2025 5:00 AM EDT 100 mcg levothyroxine (Synthroid, Levoxyl) tablet 100 mcg 100 mcg, Nasogastric, Every morning, First dose (after last modification) on Roxana 09/02/25 at 0600, Until Discontinued, Routine Given 09/03/2025 6:28 AM EDT 100 mcg Given 09/02/2025 5:27 AM EDT 100 mcg levothyroxine (Synthroid, Levoxyl) tablet 100 mcg 100 mcg, Oral, Every morning, First dose (after last modification) on 09/04/25 at 0600, Until Discontinued, Routine Given 09/09/2025 8:22 AM EST 100 mcg Given 09/08/2025 8:23 AM EST 100 mcg Given 09/07/2025 5:55 AM EST 100 mcg lisinopril tablet 5 mg 5 mg, Oral, Daily, First dose on Sat09/01/25 at 0900, Until Discontinued, Routine Given 09/09/2025 8:22 AM EST 5 mg Given 09/08/2025 8:16 AM EST 5 mg Given 09/07/2025 9:27 AM EST 5 mg magnesium sulfate IVPB 2 g 2 g, Intravenous, Once, 1 dose, On 08/28/25 at 0745, Routine New Bag 08/28/2025 7:58 AM EDT 2 g 25 mL /hr melatonin tablet 6 mg 6 mg, Oral, Nightly PRN, Starting on Sat08/30/25 at 2006, Until Roxana 09/09/25 at 1656, Routine, sleep Given 09/08/2025 8:09 PM EST 6 mg Given 09/07/2025 8:02 PM EST 6 mg Given 09/06/2025 8:36 PM EST 6 mg mirtazapine (Remeron) tablet 30 mg 30 mg, Nasogastric, Nightly, First dose on Sat08/30/25 at 2100, Until Discontinued, Routine Given 08/31/2025 7:5 6 PM EDT 30 mg Given 08/30/2025 7:52 PM EDT 30 mg mirtazapine (Remeron) tablet 30 mg 30 mg, Oral, Nightly, First dose (after last modification) on Sat09/01/25 at 2100, Until Discontinued, Routine Given 09/08/2025 8:09 PM EST 30 mg Given 09/07/2025 8:02 PM EST 30 mg Given 09/06/2025 8:36 PM EST 30 mg mupirocin (Bactroban) 2 % ointment 1 Application Each Nostril, 2 times daily, 10 doses, First dose on Sat08/28/25 at 0900, Last dose on Sat09/01/25 at 2100, Routine Given 09/01/2025 8:25 PM EDT 1 Application Given 09/01/2025 8:09 AM EDT 1 Application Given 08/31/2025 7:54 PM EDT 1 Application niCARdipine (Cardene) infusion 40 mg in NS 200 mL (0.2 mg/mL) (premix) 0-15 mg/hr (0-75 mL/hr), Intravenous, Titrated, Starting on Sat08/27/25 at 2110, Until 08/29/25 at 0928, STAT Rate/Dose Verify 08/28/2025 9:39 PM EDT 2.5 mg/hr 12.5 mL/hr Rate/Dose Verify 08/28/2025 9:24 PM EDT 5 mg/hr 25 mL/h r New Bag 08/28/2025 9:09 PM EDT 7.5 mg/hr 37.5 mL/hr nitroglycerin (Tridil) in D5W IV solution 100 mcg/mL As needed, Starting on Sat08/29/25 at 1130, Until Sat08/29/25 at 1130, Routine, Intraprocedure Given 08/29/2025 11:30 AM EDT 200 mcg Right Radial ondansetron (Zofran) 4 MG/2ML injection - Pyxis Override Pull 1 dose, Starting on Sat08/29/25 at 0521, Until 08/29/25 at 0527 ondansetron (Zofran) injection 4 mg 4 mg, Intravenous, Once, 1 dose, On 08/28/25 at 0015, STAT Given 08/28/2025 12:16 AM EDT 4 mg ondansetron (Zofran) injection 4 mg 4 mg, Intravenous, Once, 1 dose, On Sat08/29/25 at 0615, Routine Given 08/29/2025 5:27 AM EDT 4 mg ondansetron (Zofran) injection 4 mg 4 mg, Intravenous, Every 6 hours PRN, Starting on Sat08/29/25 at 0928, Until Sat09/08/25 at 2336, Routine, vomiting, nausea Given 09/08/2025 11:01 PM EST 4 mg Given 09/02/2025 8:23 PM EDT 4 mg Given 09/01/2025 3:56 PM EDT 4 mg ondansetron (Zofran) injection 6 mg 6 mg, Intravenous, Every 6 hours PRN, Starting on Sat09/08/25 at 2338, Until Roxana 09/09/25 at 1656, Routine, nausea, vomiting oxyCODONE (Roxicodone) immediate release tablet 5 mg 5 mg, Oral, Once, 1 dose, On Sat08/31/25 at 0030, Routine Given 08/31/2025 12:17 AM EDT 5 mg oxyCODONE (Roxicodone) immediate release tablet 5 mg 5 mg, Oral, Once, 1 dose, On Sat08/31/25 at 2030, Routine Given 08/31/2025 7:56 PM EDT 5 mg oxyCODONE (Roxicodone) immediate release tablet 5 mg 5 mg, Oral, Once, 1 dose, On Sat09/01/25 at 0300, Routine Given 09/01/2025 2:12 AM EDT 5 mg polyethylene glycol (Miralax) packet 17 g 17 g, Oral, 2 times daily, First dose on 08/29/25 at 1015, Until Discontinued, Routine Given 09/08/2025 8:16 AM EST 17 g Given 09/07/2025 9:27 AM EST 17 g Given 09/03/2025 8:15 AM EDT 17 g potassium & sodium phosphates (Phos-NaK) 280-160-250 MG packet 1 packet 1 packet, Oral, Every 8 hours, 3 doses, First dose on 08/29/25 at 0230, Last dose on 08/29/25 at 1830, Routine Given 08/29/2025 6:17 PM EDT 1 pack et Given 08/29/2025 10:27 AM EDT 1 packet Given 08/29/2025 3:30 AM EDT 1 packet potassium chloride (Klor-Con) packet 20 mEq 20 mEq, Oral, Once, 1 dose, On 08/29/25 at 0345, Routine Given 08/29/2025 4:45 AM EDT 20 mEq potassium chloride (Klor-Con) packet 40 mEq 40 mEq, Oral, Once, 1 dose, On 08/29/25 at 0230, Routine Given 08/29/2025 3:30 AM EDT 40 mEq potassium phosphates 15 mmol in sodium chloride 0.9 % 250 mL infusion 255 mL, Intravenous, Once, 1 dose, On 08/28/25 at 0845, Administer over 2.5 Hours, Routine New Bag 08/28/2025 8:48 AM EDT 15 mmo l 112 mL/hr pregabalin (Lyrica) capsule 25 mg 25 mg, Oral, 2 times daily PRN, Starting on Sat09/08/25 at 2335, Until Roxana 09/09/25 at 1656, Routine, headache prochlorperazine (Compazine) injection 2.5 mg 2.5 mg, Intravenous, Once, 1 dose, On 08/30/25 at 0630, STAT Given 08/30/2025 5:50 AM EDT 2.5 mg prochlorperazine (Compazine) injection 2.5 mg 2.5 mg, Intravenous, Every 6 hours PRN, Starting on Sat08/31/25 at 0121, Until Sat08/31/25 at 0128, Routine, nausea, vomiting Given 08/31/2025 1:26 AM EDT 2.5 mg rosuvastatin (Crestor) tablet 40 mg 40 mg, Nasogastric, Nightly, First dose on Sat08/28/25 at 2215, Until Discontinued, Routine Given 08/31/2025 7:56 PM EDT 40 mg Given 08/30/2025 7:52 PM EDT 40 mg Given 08/29/2025 8:06 PM EDT 40 mg rosuvastatin (Crestor) tablet 40 mg 40 mg, Oral, Nightly, First dose (after last modification) on Sat09/01/25 at 2100, Until Discontinued, Routine Given 09/08/2025 8:09 PM EST 40 mg Given 09/07/2025 8:02 PM EST 40 mg Given 09/06/2025 8:36 PM EST 40 mg scopolamine (Transderm-Scop) patch 1 patch 1 patch, Transdermal, Every 72 hours, 1 dose, First dose on Sat08/31/25 at 0215, Routine Medication Applied 08/31/2025 2:09 AM EDT 1 patch Left Arm senna-docusate (Elda-Colace) 8.6-50 MG per tablet 1 tablet 1 tablet, Oral, 2 times daily, First dose on Sat08/28/25 at 0900, Until Discontinued, Routine Given 08/31/2025 8:22 AM EDT 1 tablet Given 08/30/2025 7:52 PM EDT 1 tablet Given 08/30/2025 9:06 AM EDT 1 tablet senna-docusate (Elda-Colace) 8.6-50 MG per tablet 2 tablet 2 tablet, Oral, 2 times daily, First dose (after last modification) on Sat08/31/25 at 1100, Until Discontinued, Routine Given 09/09/2025 8:22 AM EST 2 table ts Given 09/08/2025 8:16 AM EST 2 tablets Given 09/07/2025 8:02 PM EST 2 tablets sodium chloride 0.9 % bolus 1,000 mL 1,000 mL, Intravenous, Once, 1 dose, On 09/06/25 at 1145, Administer over 10 Hours, Routine New Bag 09/06/2025 12:16 PM EST 1,000 mL 100 mL/hr sodium chloride 0.9 % flush 10 mL 10 mL, Intravenous, Every 12 hours, First dose on Sat08/27/25 at 2355, Until Discontinued, Routine Given 09/09/2025 8:30 AM EST 10 mL Given 09/08/2025 8:34 PM EST 10 mL Given 09/07/2025 8:28 PM EST 10 mL sodium chloride 0.9 % flush 10 mL 10 mL, Intravenous, As needed, Starting on Sat08/27/25 at 2349, Until Roxana 09/09/25 at 1656, Routine, line care traZODone (Desyrel) tablet 50 mg 50 mg, Oral, Nightly PRN, Starting on Sat08/31/25 at 1942, Until Roxana 09/09/25 at 1656, Routine, sleep Given 09/08/2025 8:09 PM EST 50 mg Given 09/07/2025 8:02 PM EST 50 mg Given 09/06/2025 8:36 PM EST 50 mg venlafaxine (Effexor) tablet 75 mg 75 mg, Nasogastric, 2 times daily, First dose on Sat08/30/25 at 1045, Until Discontinued, Routine Given 09/01/2025 8:05 AM EDT 75 mg Given 08/31/2025 7:55 PM EDT 75 mg Given 08/31/2025 8:22 AM EDT 75 mg venlafaxine (Effexor) tablet 75 mg 75 mg, Oral, 2 times daily, First dose (after last modification) on Sat09/01/25 at 2100, Until Discontinued, Routine Given 09/06/2025 8:33 AM EST 75 mg Given 09/05/2025 8:10 PM EST 75 mg Given 09/05/2025 8:23 AM EST 75 mg verapamil (Isoptin) injection Intra-arterial, As needed, Starting on 08/29/25 at 1130, Until 08/29/25 at 1130, Routine, Intraprocedure Given 08/29/2025 11:30 AM EDT 2.5 mg Right Radial documented in this encounter Active and Recently Administered Medications Times are shown in EST. Scheduled Medication Order 09/07/2025 09/08/2025 09/09/2025 barium sulfate (Varibar Pudding) 40 % oral paste 15 mL (COMPLETED) 15 mL, Oral, Once in imaging, 1 dose, Starting on Sat09/07/25 at 1532, Until Sat09/07/25 at 1556, Routine, Imaging Protocol Orders 1556 (Given - Provider: Crystal Robert) barium sulfate (Varibar THIN Liquid) 40 % suspension 120 mL (COMPLETED) 120 mL, Oral, Once in imaging, 1 dose, Starting on Sat09/07/25 at 1532, Until Sat09/07/25 at 1556, Routine, Imaging Protocol Orders 1556 (Given - Provider: Crystal Robert) carvedilol (Coreg) tablet 12.5 mg 12.5 mg, Oral, 2 times daily, First dose (after last modification) on Sat08/28/25 at 2100, Until Discontinued, Routine 926 (Given - Provider: Sugey oHlly RN)2001 (Given - Provider: Alyssa Shaw RN) 08 (Given - Provider: Cecilia Sneed RN)2008 (Given - Provider: Alyssa Shaw RN) 0822 (Given - Provider: Cecilia Sneed, SEDA) dantrolene (Dantrium) capsule 25 mg 25 mg, Oral, Daily, First dose on Sat09/08/25 at 1200, Until Discontinued, Routine 1133 (Given - Provider: Cecilia Sneed RN) 0822 (Given - Provider: Cecilia Sneed, SEDA) DULoxetine (Cymbalta) DR capsule 60 mg 60 mg, Oral, Daily, First dose on Sat09/07/25 at 0900, Until Discontinued, Routine 926 (Given - Provider: Sugey Holly RN) 0816 (Given - Provider: Cecilia Sneed, SEDA) 0822 (Given - Provider: Cecilia Sneed, SEDA) enoxaparin (Lovenox) syringe 40 mg 40 mg, Subcutaneous, Daily, First dose on Sat08/30/25 at 1045, Until Discontinued, Routine 09 (Given - Provider: Sugey Holly RN) 0815 (Given - Provider: Cecilia Sneed RN) 0823 (Given - Provider: Cecilia Sneed, SEDA) iohexol (OMNIPaque) 300 MG/ML injection 300 mL 300 mL, Other, Once in imaging, 1 dose, Starting on 08/29/25 at 1149, Until Roxana 09/09/25 at 1656, Routine, Imaging Protocol Orders levothyroxine (Synthroid, Levoxyl) tablet 100 mcg 100 mcg, Oral, Every morning, First dose (after last modification) on 09/04/25 at 0600, Until Discontinued, Routine 05 (Given - Provider: Nunu Preciado RN) 08 (Given - Provider: Cecilia Sneed RN) 821 (Given - Provider: Cecilia Sneed, SEDA) lisinopril tablet 5 mg 5 mg, Oral, Daily, First dose on Sat09/01/25 at 0900, Until Discontinued, Routine 926 (Given - Provider: Sugey Holly RN) 815 (Given - Provider: Cecilia Sneed RN) 821 (Given - Provider: Cecilia Sneed, SEDA) mirtazapine (Remeron) tablet 30 mg 30 mg, Oral, Nightly, First dose (after last modification) on Sat09/01/25 at 2100, Until Discontinued, Routine 2001 (Given - Provider: Alyssa Shaw RN) 2008 (Given - Provider: Alyssa Shaw RN) polyethylene glycol (Miralax) packet 17 g 17 g, Oral, 2 times daily, First dose on 08/29/25 at 1015, Until Discontinued, Routine 926 (Given - Provider: Sugey Holly, SEDA)2027 (Not Given - Provider: Alyssa Shaw RN - Reason: Patient/Family/Repres entative Refused) 815 (Given - Provider: Cecilia Sneed RN)2033 (Not Given - Provider: Alyssa Shaw RN - Reason: Order parameters not met) 822 (Not Given - Provider: Cecilia Sneed RN - Reason: Patient/Family/Repres entative Refused) rosuvastatin (Crestor) tablet 40 mg 40 mg, Oral, Nightly, First dose (after last modification) on Sat09/01/25 at 2100, Until Discontinued, Routine 2001 (Given - Provider: Alyssa Shaw RN) 2008 (Given - Provider: Alyssa Shaw RN) senna-docusate (Elda-Colace) 8.6-50 MG per tablet 2 tablet 2 tablet, Oral, 2 times daily, First dose (after last modification) on Sat08/31/25 at 1100, Until Discontinued, Routine 09 (Given - Provider: Sugey Holly, RN)2001 (Given - Provider: Alyssa Shaw RN) 0816 (Given - Provider: Cecilia Sneed, RN)2033 (Not Given - Provider: Alyssa Shaw RN - Reason: Patient/Family/Repres entative Refused) 08 (Given - Provider: Cecilia Sneed, RN) sodium chloride 0.9 % flush 10 mL(Linked Group 1) 10 mL, Intravenous, Every 12 hours, First dose on Sat08/27/25 at 2355, Until Discontinued, Routine 927 (Given - Provider: Sugey Holly RN)2027 (Given - Provider: Alyssa Shaw RN) 09 (Not Given - Provider: Cecilia Sneed, SEDA - Reason: Patient/Family/Repres entative Refused)2033 (Given - Provider: Alyssa Shaw RN) 08 (Given - Provider: Cecilia Sneed, SEDA) PRN Medication Order 09/07/2025 09/08/2025 09/09/2025 acetaminophen (Tylenol) 160 MG/5ML solution 1,000 mg(Linked Group 2) 1,000 mg, Nasogastric, Every 6 hours PRN, Starting on Sat08/27/25 at 2349, Until Roxana 09/09/25 at 1656, Routine, Mild Plus Pain with CPOT DVPRS FLACC PAINAD NPASS NRS Delatorre-Richardson Faces score of 1 or greater OR NIPS score 2 or greater 0555 (See Alternative - Provider: Nunu Preciado RN)1225 (See Alternative - Provider: Sugey Holly, SEDA)2001 (See Alternative - Provider: Alyssa Shaw, SEDA) 0253 (See Alternative - Provider: Alyssa Shaw, SEDA)1125 (See Alternative - Provider: Cecilia Sneed, SEDA)2007 (See Alternative - Provider: Alyssa Shaw RN) acetaminophen (Tylenol) suppository 650 mg(Linked Group 2) 650 mg, Rectal, Every 6 hours PRN, Starting on Sat08/27/25 at 2349, Until Roxana 09/09/25 at 1656, Routine, Mild Plus Pain with CPOT DVPRS FLACC PAINAD NPASS NRS Delatorre-Richardson Faces score of 1 or greater OR NIPS score 2 or greater 0555 (See Alternative - Provider: Nunu Preciado RN)1225 (See Alternative - Provider: Sugey Holly RN)2001 (See Alternative - Provider: Alyssa Shaw RN) 252 (See Alternative - Provider: Alyssa Shaw RN)1125 (See Alternative - Provider: Cecilia Sneed, SEDA)2007 (See Alternative - Provider: Alyssa Shaw RN) acetaminophen (Tylenol) tablet 1,000 mg(Linked Group 2) 1,000 mg, Oral, Every 6 hours PRN, Starting on Sat08/27/25 at 2349, Until Roxana 09/09/25 at 1656, Routine, Mild Plus Pain with CPOT DVPRS FLACC PAINAD NPASS NRS Delatorre-Richardson Faces score of 1 or greater OR NIPS score 2 or greater 0555 (Given - Provider: Nunu Preciado RN)1225 (Given - Provider: Sugey Holly RN)2001 (Given - Provider: Alyssa Shaw RN) 252 (Given - Provider: Alyssa Shaw RN)1125 (Given - Provider: Cecilia Sneed, SEDA)2007 (Given - Provider: Alyssa Shaw RN) bisacodyl (Dulcolax) suppository 10 mg 10 mg, Rectal, Daily PRN, Starting on Sat08/31/25 at 1004, Until Roxana 09/09/25 at 1656, Routine, constipation gabapentin (Neurontin) capsule 100 mg (CANCELED) 100 mg, Oral, 2 times daily PRN, Starting on Sat08/31/25 at 1158, Until Sat09/08/25 at 2336, Routine, pain associated with spinal fusion 0928 (Given - Provider: Sugey Holly, SEDA) melatonin tablet 6 mg 6 mg, Oral, Nightly PRN, Starting on Sat08/30/25 at 2006, Until Roxana 09/09/25 at 1656, Routine, sleep 2001 (Given - Provider: Alyssa Shaw RN) 2008 (Given - Provider: Alyssa Shaw RN) ondansetron (Zofran) injection 4 mg (CANCELED) 4 mg, Intravenous, Every 6 hours PRN, Starting on Sat08/29/25 at 0928, Until Sat09/08/25 at 2336, Routine, vomiting, nausea 2301 (Given - Provider: Alyssa Shaw, RN) ondansetron (Zofran) injection 6 mg 6 mg, Intravenous, Every 6 hours PRN, Starting on Sat09/08/25 at 2338, Until Roxana 09/09/25 at 1656, Routine, nausea, vomiting pregabalin (Lyrica) capsule 25 mg 25 mg, Oral, 2 times daily PRN, Starting on Sat09/08/25 at 2335, Until Roxana 09/09/25 at 1656, Routine, headache sodium chloride 0.9 % flush 10 mL(Linked Group 1) 10 mL, Intravenous, As needed, Starting on Sat08/27/25 at 2349, Until Roxana 09/09/25 at 1656, Routine, line care traZODone (Desyrel) tablet 50 mg 50 mg, Oral, Nightly PRN, Starting on Sat08/31/25 at 1942, Until Sat09/09/25 at 1656, Routine, sleep 2001 (Given - Provider: Alyssa Shaw, SEDA) 2008 (Given - Provider: Alyssa Shaw RN) Linked Groups Order Group 1: Insert peripheral IV (CANCELED) Once, On Sat08/27/25 at 2350, For 1 occurrence And Saline lock IV (CANCELED) Once, On Sat08/27/25 at 2350, For 1 occurrence And sodium chloride 0.9 % flush 10 mLJump to med 10 mL, Intravenous, Every 12 hours, First dose on Sat08/27/25 at 2355, Until Discontinued, Routine And sodium chloride 0.9 % flush 10 mLJump to med 10 mL, Intravenous, As needed, Starting on Sat08/27/25 at 2349, Until Roxana 09/09/25 at 1656, Routine, line care Group 2: acetaminophen (Tylenol) tablet 1,000 mgJump to med 1,000 mg, Oral, Every 6 hours PRN, Starting on Sat08/27/25 at 2349, Until Roxana 09/09/25 at 1656, Routine, Mild Plus Pain with CPOT DVPRS FLACC PAINAD NPASS NRS Delatorre-Richardson Faces score of 1 or greater OR NIPS score 2 or greater Or acetaminophen (Tylenol) 160 MG/5ML solution 1,000 mgJump to med 1,000 mg, Nasogastric, Every 6 hours PRN, Starting on Sat08/27/25 at 2349, Until Roxana 09/09/25 at 1656, Routine, Mild Plus Pain with CPOT DVPRS FLACC PAINAD NPASS NRS Delatorre-Richardson Faces score of 1 or greater OR NIPS score 2 or greater Or acetaminophen (Tylenol) suppository 650 mgJump to med 650 mg, Rectal, Every 6 hours PRN, Starting on Sat08/27/25 at 2349, Until Roxana 09/09/25 at 1656, Routine, Mild Plus Pain with CPOT DVPRS FLACC PAINAD NPASS NRS Delatorre-Richardson Faces score of 1 or greater OR NIPS score 2 or greater documented in this encounter Additional Health Concerns Assessment Noted Time A Body Mass Index follow-up plan has been documented for the patient 09/09/2025 1:57 PM EST documented as of this encounter 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
--- OUTSIDE RECORDS SUMMARY | 2025-08-29 09:59 | XMS_ITS | Encounter Summary ---
Author Organization [facility] Address [address] [place] [address] Care Team Providers Care Water Maintenance Supervisor Name Role Phone System, Provider Not In MD Primary Care Provider Unavailable Jb Wayne Unavailable [phone] Reason for Visit * Auth/Cert (Routine) Specialty Diagnoses / Procedures Referred By Contac t Referred To Contact Diagnoses Acute intra-cranial hemorrhage (CMS/HCC) Sergey Stern MD [address] [facility] [address] [place] [address] Phone: tel: fax: PAV A Inpatient [address] [place] [address] Phone: tel: Referral ID Status Reason Start Date Expiration Date Visits Re quested Visits Authorized [id number] 1 1 Encounter Details Date Type Department Care Team (Late st Contact Info) Description 08/29/2025 10:59 AM EDT Anesthesia Event PAV A Interventional Radiology [address] [place] [address] Vipul Holt MD [address] [facility] [address] [place] [address] Remi Urrutia, POT SANDER [address] [place] [address] Anesthesia Record Procedure Summary Procedure Name Responsible Anesthesiologist Anesthesia Start Time Anesthesia Stop Time IR ANGIOGRAM CAROTID CEREBRAL BILATERAL Vipul Holt MD 08/29/25 1059 08/29/25 1218 Events Date Time Event Comment 08/29/2025 1059 An Start The patient was reevaluated immediately before sedation and remains eligible for anesthesia plan. 1059 An Start Data 1107 An Induction The patient was reevaluated immediately before moderate or deep sedation use and before anesthesia induction. 1109 An Intubation 1109 Anesthesia Ready 1158 An Extubation 1209 an stop data 1218 Handoff to Receiving I compl eted my handoff to the receiving clinician during which we: 1. Identified the patient 2. Identified the responsible provider 3. Reviewed the pertinent medical history 4. Discussed the surgical course 5. Reviewed intra-op anesthesia management and issues during anesthesia 6. Set expectations for post-procedure period 7. Allowed opportunity for questions and acknowledgement of understanding. 1218 An Stop Meds Name Total fentaNYL (Sublimaze) injection 50 mcg/mL 100 mcg propofol (Diprivan) injection 10 mg/mL 1 00 mg rocuronium (ZeMuron) injection 10 mg/mL 50 mg lidocaine PF (Xylocaine-MPF) 2% 80 mg dexamethasone (Decadron) injection 4 mg/ mL 4 mg ePHEDrine injection prefilled syringe 5 mg/mL 7.5 mg phenylephrine (Jace-Synephrine) prefilled syringe 1 mg/10 mL 1,200 mcg ondansetron (Zofran) injection 2 mg/mL 4 mg sugammadex (Bridion) injection 100 mg/mL 200 mg dexmedetomidine (Precedex) injection 100 mcg/mL 8 mcg nitroglycerin (Tridil) bolus 100 mcg lactated Ringer's infusion 1,000 mL * Agents No agents on file. * Blood No blood administrations on file. Lines, Drains, and Airways Type Details Placement Removal Female External Urinary Catheter 08/28/25; 0230; No; Yes 08/28/25 0230 by Analy Salter telecom sales consultant 08/29/25; 1156; Yes; Surgical; Catheter Ent; Wrist; Anterior, Right; TR band 08/29/25 1156 by Lucy Flores, SEDA Peripheral IV Placement Date: 08/05 02/26; Existing LDA Placed by: EMS; Catheter Size: 18 G; Orientation: Left, Posterior; Location: Hand; Removal Date: 09/01/25; Removal Time: 0800; Removal Reason: Leaking 08/27/25 0000 by Junior Briceño RN 09/01/25 0800 by Waldo Barone RN Peripheral IV Placement Date: 08/05 02/26; Placement Time: 2122; Catheter Size: 18 G; Orientation: Posterior, Right; Location: Hand; Technique: Anatomical landmarks; Inserted by: Junior Briceño RN; Insertion Attempts: 1; Removal Date: 09/09/25; Removal Time: 1230; Removal Reason: Discharge 08/27/252122 by Kriss Arango RN 09/09/25 1230 by Cecilai Sneed RN Feeding Tube Placement Date: 08/05 03/28; Placement Time: 1105; Inserted by: FT Team; Type: Gastric; Size: 10 Fr.; Location: Right nare; Removal Date: 09/05/25; Removal Time: 1300; Removal Reason: Per order 08/28/25 1105 by Radha Escamilla, RD 09/05/25 1300 by Natty Rodriguez RN ETT Placement Date: 08/05 04/28; Placement Time: 1109 (created via procedure documentation); Mask Ventilation: 1; Technique: Video laryngoscopy; Type: ETT - single; Single Lumen Tube Size: 7 mm; Cuffed: Yes; Laryngoscope: Mandy; Blade Size: 3; Location: Oral; Grade View: Grade I; Insertion Attempts: 1; Placement Verification: Auscultation, Capnometry; Airway Comments: Atraumatic. No change to dentition. ; Placed by: POT SANDER; Removal Date: 08/29/25; Removal Time: 1158 08/29/25 1109 by Remi Urrutia CRNA 08/29/25 1158 by Remi Urrutia CRNA Arterial Sheath 08/29/25; 1130; Yes; 5 Fr.; Right; Radial; Rylee Sadeghian; None; Chlorhexidine ; Yes; 08/29/25; 1157; Per protocol; No complications, Catheter intact 08/29/25 1130 by Lucy Flores RN 08/29/25 1157 by Lucy Flores RN documented in this encounter Social History Tobacco Use Types Packs/Day Years Used Date Smoking Tobacco: Former Cigarettes 0 Q uit: 06/19/2025 Smokeless Tobacco: Never Alcohol Use Standard Drinks/Week Comments Never 0 (1 standard drink = 0.6 oz pur e alcohol) Humiliation, Afraid, Rape, a nd Kick questionnaire Answer Date Recorded Within the last year, have y ou been afraid of your partner or ex-partner? Patient unable to answer 08/30/2025 Within the last year, have y ou been humiliated or emotionally abused in other ways by your partner or ex-partner? Patient unable to answer 08/30/2025 Within the last year, have y ou been kicked, hit, slapped, or otherwise physically hurt by your partner or ex-partner? Patient unable to answer 08/30/2025 Within the last year, have y ou been raped or forced to have any kind of sexual activity by your partner or ex-partner? Patient unable to answer 08/30/2025 Social Connection and Isolation Panel Answer Date Recorded In a typical week, how many times do you talk on the phone with family, friends, or neighbors? Patient unable to answer 08/30/2025 How often do you get togethe r with friends or relatives? Patient unable to answer 08/30/2025 How often do you attend [facility] or [facility] services? Patient unable to answer 08/30/2025 Do you belong to any clubs o r organizations such as uatsdin groups, unions, fraternal or athletic groups, or [...] and heating? Patient unable to answer 08/30/2025 [facility] of Occupat ional [facility] - Occupational Stress Questionnaire Answer Date Recorded [...] you got the money to buy more. Patient unable to answer 08/30/2025 Within the past 12 months, t he food you bought just didn't last and you didn't have money to get more. Patient unable to answer 08/30/2025 PRAPARE - Transportation Answer Date Re corded In the past 12 months, has l ack of transportation kept you from medical appointments or from getting medications? Patient unable to answer 08/30/2025 In the past 12 months, has l ack of transportation kept you from meetings, work, or from getting things needed for daily living? Patient unable to answer 08/30/2025 Housing Stability Vital Sign Answer Salbador e Recorded In the last 12 months, was t here a time when you were not able to pay the mortgage or rent on time? Patient unable to answer 08/30/2025 In the past 12 months, how m any times have you moved where you were living? 0 08/30/2025 At any time in the past 12 m [facility], were you homeless or living in a care home (including now)? Patient unable to answer 08/30/[address] [facility] Utilities Answer Date Recorded In the past 12 months has th e electric, gas, oil, or water company threatened to shut off services in your home? Patient unable to answer 08/30/2025 Comments No Sex and Gender Information Value Date Recorded Sex Assigned at Not on file Legal Sex Female 8:52 PM EDT Gender Identity Not on file Sexual Orientation Not on file documented as of this encounter Functional Status documented as of this encounter Mental Status * Question Answer Entry Date Author Precautions Fall risk;Reid anshu surveillance 08/29/2025 10:00 PM EDT Alyssa Shaw RN documented in this encounter Miscellaneous Notes * Anesthesia Postprocedure Evaluation - Remi Urrutia CRNA - 08/29/2025 12:21 PM EDT Patient: Aniyah Blum Anesthesia Type: general Vitals Value Taken Time BP 124/65 08/29/25 12:21 Temp 36.8 08/29/25 12:21 Pulse 73 08/29/25 12:21 Resp 13 08/29/25 12:21 SpO2 97 08/29/25 12:21 Anesthesia Post Evaluation Patient location during evaluation: PACU Patient participation: complete - patient participated Level of consciousness: awake Pain management: adequate (pain score 0-3) Airway patency: natural airway Cardiovascular status: acceptable, blood pressure returned to baseline and hemodynamically stable Respiratory status: spontaneous ventilation, nasal cannula and acceptable Hydration status: stable Nausea/Vomiting: No No notable events documented. * Anesthesia Procedure Notes - Remi Urrutia CRNA - 08/29/2025 11:18 AM EDT Associated Order(s): Airway Airway Date/Time: 08/29/2025 11:09 AM Reason: elective Airway not difficult General Information and Staff Patient location during procedure: OR POT SANDER: Remi Urrutia CRNA Performed: VICKIE Patient Condition Indications for airway management: anesthesia Patient position: sniffing MILS maintained throughout (c-collar remained in place) Final Airway Details Final airway type: endotracheal airway Successful airway: ETT Cuffed: yes Successful intubation technique: video laryngoscopy Adjuncts used in placement: intubating stylet Endotracheal tube insertion site: oral Blade: Mandy Blade size: #3 ETT size (mm): 7.0 Cormack-Lehane Classification: grade I - full view of glottis Placement verified by: chest auscultation and capnometry Cuff volume (mL): 5 Measured from: gums ETT to gums (cm): 21 Additional Comments Atraumatic. No change to dentition. * Anesthesia Preprocedure Evaluation - Remi Urrutia CRNA - 08/29/2025 10:07 AM EDT Patient: Aniyah Blum HPI Aniyah Blum is a 60 y.o. female with body mass index is 24.57 kg/m??. who presents with Acute intra-cranial hemorrhage (CMS/HCC), now for Procedure Information Date/Time: 08/29/25729 Procedure: IR ANGIOGRAM CAROTID CEREBRAL BILATERAL Location: [facility] A Interventional Radiology Relevant Problems Cardio (+) HTN (hypertension) (+) NSTEMI (non-ST elevated myocardial infarction) SAH Stroke ALLERGIES Allergies[1] NPO STATUS Past Medical History[2] AIRWAY HISTORY Airway Detailed Review Displaying the 20 most recent records No records found. MEDICATIONS Outpatient Current Outpatient Medications Medication Instructions albuterol 108 (90 Base) MCG/ACT inhaler 2 puffs, 4 times daily DULoxetine (CYMBALTA) 60 mg, Daily estradiol (ESTRACE) 1 mg, Daily fenofibrate (TRICOR) 54 mg, Daily Gemtesa 75 mg, Daily levothyroxine (SYNTHROID, LEVOXYL) 100 mcg, Every morning metFORMIN (GLUCOPHAGE) 500 mg, 2 times daily with meals mirtazapine (REMERON) 30 mg, Nightly oxyCODONE-acetaminophen (Percocet) 5-325 MG tablet 1 tablet, Every 4 hours PRN rosuvastatin (CRESTOR) 40 mg, Daily Scheduled Current Scheduled Medications[3] PRNs Current PRN Medications[4] SURGICAL HX: Surgical History[5] SOCIAL HX: Social History[6] OBJECTIVE DATA LABS Lab Results Component Value Date WBC 10.61 (H) 08/29/2025 HGB 13.1 08/29/2025 HCT 37.2 08/29/2025 MCV 93 08/29/2025 PLT 303 08/29/2025 Lab Results Component Value Date CALCIUM 8.9 08/29/2025 BUN 24 (H) 08/29/2025 CREATININE 0.52 (L) 08/29/2025 BCR 46 08/29/2025 NA 139 08/29/2025 K 3.5 (L) 08/29/2025 CL 106 08/29/2025 CO2 24 08/29/2025 Type and Screen No results found for: ABO Results from last 7 days Lab Units 08/27/252110 APTT sec 28 INR 1.0 No results found for: HGBA1C Lab Results Component Value Date PGLU 175 (H) 08/27/2025 GLUCOSE 146 (H) 08/29/2025 ABG Lab Results Component Value Date [id number] 25 08/28/2025 LACTATE 1.0 08/28/2025 Lab Results Component Value Date PH 7.43 08/28/2025 PCO2 38 08/28/2025 PO2 88 08/28/2025 G1KRVRTD 97 08/28/2025 BASEEXC 1.1 08/28/2025 HCTSYR 44.1 08/28/2025 KSYR 3.2 (L) 08/28/2025 CLSYR 105 08/28/2025 GLUSYR 162 (H) 08/28/2025 CAION 4.5 (L) 08/28/2025 LACTATE 1.0 08/28/2025 ECHO No echocardiogram results found for the past 12 months PFTs No results found for: KYG0YHK , IIN0LBBZ , YPO5EMJ , FVCPRED BP Readings from Last 5 Encounters: 08/29/25 111/66 Physical Exam Airway Mallampati: IV Neck ROM: limited Cardiovascular Rhythm: regular Dental Pulmonary Breath sounds clear to auscultation Neurological (+) altered mental status Skin Musculoskeletal Extremities Other findings: Neck collar Anesthesia Plan ASA 4 Plan was reviewed with: POT SANDER Anesthesia technique(s) discussed with the patient/family: general Anesthesia plan agreed upon was: general Anesthetic plan and risks discussed with healthcare power of assistant attorney general. Anesthesia Evaluation [1] No Known Allergies [2] No past medical history on file. [3] carvedilol, 12.5 mg, Oral, BID levothyroxine, 100 mcg, Nasogastric, q AM mupirocin, 1 Application, Each Nostril, BID polyethylene glycol, 17 g, Oral, BID potassium & sodium phosphates, 1 packet, Oral, q8h rosuvastatin, 40 mg, Nasogastric, Nightly senna-docusate, 1 tablet, Oral, BID Insert peripheral IV, , , Once AND Saline lock IV, , , Once AND sodium chloride, 10 mL, Intravenous, q12h AND sodium chloride, 10 mL, Intravenous, PRN [4] PRN medications: acetaminophen OR acetaminophen OR acetaminophen, hydrALAZINE OR hydrALAZINE, labetalol OR labetalol, ondansetron, Insert peripheral IV AND Saline lock IV AND sodium chloride AND sodium chloride [5] No past surgical history on file. [6] Social History Tobacco Use Smoking status: Former Current packs/day: 0.00 Types: Cigarettes Quit date: 06/19/2025 Years since quittin.1 Smokeless tobacco: Never Vaping Use Vaping status: Never Used Substance Use Topics Alcohol use: Never Drug use: Never documented in this encounter Plan of Treatment Upcoming Encounters Date Type Department Care Team (Late st Contact Info) Description 11/29/2025 10:40 AM EST Office Visit [facility] [facility] [address] [place] [address] Julia Martinez PA [address] [place] [address] 12/09/2025 11:20 AM EST Office Visit [place] [facility] [address] [place] [address] Hector Fu APRN [address] [place] [address] 12/14/2025 3:00 PM EST Office Visit [facility] [address] [place] [address] Beto Hair DO [address] [place] [address] documented as of this encounter Procedures Procedure Name Priority Date/Time Associated Diagnosis Comments PB ANESTHESIA PLACEHOLDER Routine 08/29/2025 11:09 AM EDT LA AN ELECTIVE ENDOTRACHEAL AIRWAY Routine 08/29/2025 11:09 AM EDT documented in this encounter Results * LA AN ELECTIVE ENDOTRACHEAL AIRWAY, PB ANESTHESIA PLACEHOLDER (08/29/2025 11:09 AM EDT) Narrative Remi Urrutia CRNA - 08/29/2025 11:09 AM EDT Remi Urrutia CRNA 08/29/2025 11:20 AM Airway Date/Time: 08/29/2025 11:09 AM Reason: elective Airway not difficult General Information and Staff Patient location during procedure: OR POT SANDER: Remi Urrutia CRNA Performed: VICKIE Patient Condition Indications for airway management: anesthesia Patient position: sniffing MILS maintained throughout (c-collar remained in place) Final Airway Details Final airway type: endotracheal airway Successful airway: ETT Cuffed: yes Successful intubation technique: video laryngoscopy Adjuncts used in placement: intubating stylet Endotracheal tube insertion site: oral Blade: Mandy Blade size: #3 ETT size (mm): 7.0 Cormack-Lehane Classification: grade I - full view of glottis Placement verified by: chest auscultation and capnometry Cuff volume (mL): 5 Measured from: gums ETT to gums (cm): 21 Additional Comments Atraumatic. No change to dentition. us Vipul Holt MD ANESTHESIA ORDERABLES F inal Result documented in this encounter Visit Diagnoses Not on filedocumented in this encounter Administered Medications Inactive Administered Medications - up to 3 most recent administrations Medication Order MAR Action Action Date Dose Rate Site dexamethasone (Decadron) injection Intravenous, As needed, Starting on 08/29/25 at 1124, Until 08/29/25 at 1221, Routine, Anesthesia Intraprocedure Given 08/29/2025 11:24 AM EDT 4 mg dexmedetomidine (Precedex) 100 MCG/ML concentrated solution Intravenous, As needed, Starting on 08/29/25 at 1156, Until 08/29/25 at 1221, Routine, Anesthesia Intraprocedure Given 08/29/2025 11:56 AM EDT 8 mcg ePHEDrine Sulfate (Akovaz) injection Intravenous, As needed, Starting on 08/29/25 at 1141, Until 08/29/25 at 1221, Routine, Anesthesia Intraprocedure Given 08/29/2025 11:41 AM EDT 7.5 mg fentaNYL (Sublimaze) injection Intravenous, As needed, Starting on 08/29/25 at 1107, Until 08/29/25 at 1221, Routine, Anesthesia Intraprocedure Given 08/29/2025 11:07 AM EDT 100 mcg lactated Ringer's infusion Intravenous, Continuous PRN, Starting on 08/29/25 at 1059, Until 08/29/25 at 1221, Routine New Bag 08/29/2025 10:59 AM EDT lidocaine PF (Xylocaine) 2 % injection Intravenous, As needed, Starting on 08/29/25 at 1107, Until 08/29/25 at 1221, Routine, Anesthesia Intraprocedure Given 08/29/2025 11:07 AM EDT 80 mg nitroglycerin (Tridil) in D5W IV solution 100 mcg/mL Intravenous, As needed, Starting on 08/29/25 at 1157, Until 08/29/25 at 1221, Routine, Anesthesia Intraprocedure Given 08/29/2025 11:57 AM EDT 100 mcg ondansetron (Zofran) injection Intravenous, As needed, Starting on 08/29/25 at 1124, Until 08/29/25 at 1221, Routine, Anesthesia Intraprocedure Given 08/29/2025 11:24 AM EDT 4 mg phenylephrine in NS (Jace-Synephrine) 100 mcg/mL prefilled syringe Intravenous, As needed, Starting on 08/29/25 at 1122, Until 08/29/25 at 1221, Routine, Anesthesia Intraprocedure Given 08/29/2025 11:47 AM EDT 300 mcg Given 08/29/2025 11:40 AM EDT 200 mcg Given 08/29/2025 11:36 AM EDT 200 mcg propofol (Diprivan) injection Intravenous, As needed, Starting on 08/29/25 at 1107, Until 08/29/25 at 1221, Routine, Anesthesia Intraprocedure Given 08/29/2025 11:07 AM EDT 10 0 mg rocuronium (ZeMuron) injection Intravenous, As needed, Starting on 08/29/25 at 1107, Until 08/29/25 at 1221, Routine, Anesthesia Intraprocedure Given 08/29/2025 11:07 AM EDT 50 mg sugammadex (Bridion) 100 MG/ML injection Intravenous, As needed, Starting on 08/29/25 at 1155, Until 08/29/25 at 1221, Routine, Anesthesia Intraprocedure Given 08/29/2025 11:55 AM EDT 20 0 mg documented in this encounter Additional Health Concerns Assessment Noted Time A Body Mass Index follow-up plan has been documented for the patient 09/09/2025 1:57 PM EST documented as of this encounter Care Teams Water Maintenance Supervisor Relationship Specialty Start Date End Date System, Provider Not In, [place] [address] PCP - General Family Medicine 08/27/25 [place] [address] 08/27/25 documented as of this encounter
[2025-10-22 16:47] LABS: Hematocrit 41.0 % (37.0-47.0); Hemoglobin 13.6 g/dL (12.2-16.2); Immature Granulocytes % 0.3 %; Mean Corpuscular HGB Conc 33.2 g/dL (31.8-35.4); Mean Corpuscular Hemoglobin 32.2 pg (27.0-31.2); Mean Corpuscular Volume 96.9 fl (81-99); Nucleated Red Blood Cells % 0 %; Platelet Count 292 K/mm3 (142-424); Red Blood Count 4.23 M/mm3 (4.20-5.40); Red Cell Distribution Width-SD 43.3 fL; White Blood Count 7.2 K/mm3 (4.8-10.8)
[2025-10-22 17:12] LABS: Alanine Aminotransferase 19 U/L (12-78); Albumin Level 4.8 g/dl (3.5-5.0); Albumin/Globulin Ratio 2.0 (1.1-1.8); Alkaline Phosphatase 108 U/L (38-126); Anion Gap 13.4 mEq/L (5-15); Aspartate Amino Transferase 24 U/L (14-36); Bilirubin,Total 1.3 mg/dl (0.2-1.3); Blood Urea Nitrogen 25 mg/dl (7-17); Calcium 10.3 mg/dl (8.4-10.2); Carbon Dioxide 28 mmol/L (22.0-30.0); Chloride 100 mmol/L (98-107); Cholesterol 134 mg/dl (140-200); Creatinine,Serum 0.90 mg/dl (0.52-1.04); Estimated Glomerular Filt Rate 64 ml/min (>60); GFR (African American) 78 ML/MIN (>60); Globulin 2.4 g/dL (1.3-3.2); Glucose 117 mg/dl (74-100); HDL Cholesterol 42 mg/dl (40-60); Potassium 4.4 mmoL/L (3.5-5.1); Sodium 137 mmol/L (136-145); Total Protein,Serum 7.2 g/dl (6.3-8.2); Triglycerides 235 mg/dl (30-150)
[2025-10-22 17:20] LABS: Hemoglobin A1C 6.1 % (4.0-6.0)
[2025-10-22 17:29] LABS: 25-OH Vitamin D, Total 42.5 ng/mL (30-100)
[2025-10-22 17:42] LABS: Thyroid Stimulating Hormone 1.75 uIU/mL (0.465-4.68)
--- OUTSIDE RECORDS SUMMARY | 2025-10-23 09:36 | XMS_ITS | Encounter Summary ---
Author Organization [facility] Address [address] [place] [address] Care Team Providers Care Legal Consultant Name Role Phone System, Provider Not In MD Primary Care Provider Unavailable Jb Wayne Unavailable [phone] Myrna Wagoner LPN Unavailable Unavailable Ricardo Wayne Unavailable Unavailable Reason for Visit * Reason Comments Chw/[employer] Encounter Details Date Type Department Care Team (Late st Contact Info) Description 10/06/2025 Patient Outreach POPULATION HEALTH [address] [facility] [address], [address] [place] [address] Gerardo Phillips, PHYSICAL THERAPIST [facility] FLOOR [address] PAV A [facility]w/[facility] Social History Tobacco Use Types Packs/Day Years Used Date Smoking Tobacco: Former Cigarettes 0 Q uit: 06/19/2025 Smokeless Tobacco: Never Alcohol Use Standard Drinks/Week Comments Defer 0 [...] answer 08/30/2025 How often do you attend [facility] or faith services? Patient unable to answer 08/30/2025 Do you belong to any clubs o r organizations such as baptism groups, unions, fraSchool [employer]ations & Achievement or athletic groups, or school groups? Patient [...] and heating? Patient unable to answer 08/30/2025 [facility] Occupat ional Health - Occupational Stress [...] any time in the past 12 m [facility], were you homeless or living in a custodial (including now)? No 10/04/2025 [facility] Utilities Answer Date Recorded In the past [...] on file documented as of this encounter Miscellaneous Notes * Progress Notes - Ricardo Wayne - 10/06/2025 3:42 PM EST CHW Initial Encounter Note 10/06/2025 Urgent or Non-Urgent Referral: Non Urgent Swimmer: No Preferred Language: Cook Islander Swimmer ID: Outreach 1: 10/06/2025 Contact Methods: Phone SDOH Pre-Assessment/Health Maintenance: Housing: [housing situation, stability, concerns, etc.] andTransportation: [access to transportation, issues, etc.] SDOH Overview: Pt screened for transportation needs on SDOH Assessment. SDOH Intervention: CHW saw on TCM notes today that preferred contact is with pt's grandchild. CHW reached out and pt was in the room with grandchild. Pt's grandchild informed CHW that they are in the process of searching for bottom floor apartments, as well as have transportation concerns for appts in December. CHW explained that pt may be eligible for transportation assistance on their insurance, and explained how to reach out to the member's services numbers on the back of the card to activate these benefits. Pt's grandchild mentioned they are concerned about pt getting down the stairs, and [facility] Pt plans to ask during appt on 10/15 about home health and pputting in a referral. Pt is looking for income-based housing, and when asked, doesn't have a preference where. Pt would need a sound effects technician with them if they moved out of the home, however, as they are currently staying withtheir grandchild. CHW informed them that they will keep in touch, and will reach out following 10/15 appt after they discuss home health. Pt and pt's grandchild agreed. CHW informed them that they have their direct line, if any needs arise in the meantime. Pt enrolled in CHW Program: Yes Next follow-up scheduled: 10/15/2025 Notes for next follow-up: If not heard back, CHW will reach out following TH appt and home health discussion. documented in this encounter Plan of Treatment Upcoming Encounters Date Type Department Care Team (Late st Contact Info) Description 11/29/2025 10:40 AM EST Office Visit [facility] [place] [facility] [address] [place] [address] Julia Martinez PA [address] [place] [address] 12/09/2025 11:20 AM EST Office Visit [place] [facility] [address] [place] [address] Hector Fu, NILDA [address] [place] [address] 12/14/2025 3:00 PM EST Office Visit [facility] [address] [place] [address] Beto Hair DO [address] [place] [address] documented as of this encounter Visit Diagnoses Not on filedocumented in this encounter Additional Health Concerns Assessment Noted Time A Body Mass Index follow-up plan has been documented for the patient 09/09/2025 1:57 PM EST documented as of this encounter Care Teams Legal Consultant Relationship Specialty Start Date End Date System, Provider Not In, [place] [address] PCP - General Family Medicine 08/27/25 Jb Wayne [facility] [address] [place] [address] 08/27/25 Myrna Wagoner LPN VALUE-[place]ED [place] [address] None TCM Nurse 09/29/25 Ricardo Wayne Community Health Worker 10/06/25 documented as of this encounter
--- OUTSIDE RECORDS SUMMARY | 2025-10-23 09:36 | XMS_ITS | Encounter Summary ---
Author Organization [facility] Address [address] [place] [address] Care Team Providers Care Hat Finishing Materials Preparer Name Role Phone System, Provider Not In MD Primary Care Provider Unavailable Jb Wayne Unavailable [phone] Myrna Wagoner LPN Unavailable Unavailable Ricardo Wayne Unavailable Unavailable Reason for Visit * Reason Comments [facility] Encounter Details Date Type Department Care Team (Late st Contact Info) Description 10/12/2025 Patient Outreach POPULATION HEALTH [address] [facility] [address] [place], [address] [place] [address] Ricardo Wayne [facility] Social History Tobacco Use Types Packs/Day [...] answer 08/30/2025 How often do you attend [facility] or sabianism services? Patient unable to answer 08/30/2025 Do you belong to any clubs o r organizations such as confucianism groups, unions, fraternal or athletic groups, or [...] and heating? Patient unable to answer 08/30/2025 [facility] of Occupat ional Health - Occupational [...] any time in the past [address] [facility], were you homeless or living in a longterm (including now)? No 10/04/2025 [facility] Utilities Answer Date Recorded In the [...] * Progress Notes - Ricardo Wayne - 10/12/2025 12:26 PM EST CHW Follow-up Encounter Note 10/12/2025 TCM nurse reached out to CHW to inform them that pt does not have CHW's direct line and is trying to reach them. CHW reached out to pt, pt informed them that their lease ends on 10/25, and they don'twant to renew it if it means they might leave next year to a unit on the first floor. Pt's home is accessible by stairs and makes it difficult for pt to ambulate. Pt is also concerned about transporta tion, as their insurance stated they will no longer be covering it. CHW has been calling various Section 8 housing and transportation services, so far has not located an available unit on the first floor or transportation covered by pt's insurance. CHW also called the place pt is currently living in, first floor units are unavailable. CHW will keep looking. CHW hasalso spoken with team about next steps, and is looking for a housing advocacy program in pt's area so they can discuss what they should do about upcoming lease. If not heard back today, CHW will reach out tomorrow, 10/13, with any identified resources. documented in this encounter Plan of Treatment Upcoming Encounters Date Type Department Care Team (Late st Contact Info) Description 11/29/2025 10:40 AM EST Office Visit [facility] [place] [facility] [address] [facility] [place] [address] Julia Martinez PA [address] [place] [address] 12/09/2025 11:20 AM EST Office Visit [place] [facility] [address], [address] [place] [phone] Hector Fu, NILDA [address] [place] [address] 12/14/2025 3:00 PM EST Office Visit [facility] [address] [place] [address] Beto Hair DO [address] [place] [address] documented as of this encounter Visit Diagnoses Not on filedocumented in this encounter Additional Health Concerns Assessment Noted Time A Body Mass Index follow-up plan has been documented for the patient 09/09/2025 1:57 PM EST documented as of this encounter Care Teams Hat Finishing Materials Preparer Relationship Specialty Start Date End Date System, Provider Not In, MD [address] [place] [address] PCP - General Family Medicine 08/27/25 Jb Wayne [place] [id number] 08/27/25 Myrna Wagoner, MIRA [employer] [address] None TCM Nurse 09/29/25 Ricardo Wayne Community Health Worker 10/06/25 documented as of this encounter
--- OUTSIDE RECORDS SUMMARY | 2025-10-23 09:36 | XMS_ITS | Encounter Summary ---
Author Organization [facility] Address [address] [place] [address] Care Team Providers Care Labor Expediter Name Role Phone System, Provider Not In MD Primary Care Provider Unavailable Jb Wayne Unavailable [phone] Myrna Wagoner LPN Unavailable Unavailable Reason for Visit * Reason Comments TCM Encounter Details Date Type Department Care Team (Late st Contact Info) Description 10/04/2025 Patient Outreach POPULATION HEALTH [address] [place] [address] Myrna Wagoner LPN [employer] [place] [address] None TCM Social History Tobacco Use Types Packs/Day Years [...] answer 08/30/2025 How often do you attend [facility] or adventist services? Patient unable to answer 08/30/2025 Do you belong to any clubs o r organizations such as yazidism groups, unions, fraternal or athletic groups, or [...] and heating? Patient unable to answer 08/30/2025 [facility] of Occupat ional Health - Occupational Stress [...] any time in the past 12 m [facility], were you homeless or living in a halfway (including now)? No 10/04/2025 [facility] Utilities Answer Date Recorded In the [...] on file documented as of this encounter Plan of Treatment Upcoming Encounters Date Type Department Care Team (Late st Contact Info) Description 11/29/2025 10:40 AM EST Office Visit [facility] [place] [facility] [address] [place] [address] Julia Martinez PA [address] [place] [address] 12/09/2025 11:20 AM EST Office Visit [place] [facility] [address], [address] [place] [id number] Hector Fu, CENTRAL MELT SPECIALIST [address] [place] [address] 12/14/2025 3:00 PM EST Office Visit [facility] [address] [place] [place] [address] Beto Hair DO [address] [place] [address] documented as of this encounter Visit Diagnoses Not on filedocumented in this encounter Additional Health Concerns Assessment Noted Time A Body Mass Index follow-up plan has been documented for the patient 09/09/2025 1:57 PM EST documented as of this encounter Care Teams Labor Expediter Relationship Specialty Start Date End Date System, Provider Not In, [address] [place] [address] PCP - General Family Medicine 08/27/25 Jb Wayne [facility] [address] [place] [address] 08/27/25 Myrna Wagoner LPN [employer] [place] [address] None TCM Nurse 09/29/25 documented as of this encounter
--- OUTSIDE RECORDS SUMMARY | 2025-10-23 09:36 | XMS_ITS | Encounter Summary ---
Author Organization [facility] Address [address] [place] [address] Care Team Providers Care Quality Liaison Name Role Phone System, Provider Not In MD Primary Care Provider Unavailable Jb Wayne Unavailable [phone] Myrna Wagoner LPN Unavailable Unavailable Ricardo Wayne Unavailable Unavailable Encounter Details Date Type Department Care Team (Latest Contact Info) Description 10/15/2025 Travel Social History Tobacco Use Types Packs/Day Years [...] answer 08/30/2025 How often do you attend chur or worship services? Patient unable to answer 08/30/2025 Do you belong to any clubs o r organizations such as latter day groups, unions, fraternal or athletic groups, or [...] heating? Patient unable to answer 08/30/2025 [facility] of Occupat ional [facility] - Occupational Stress Questionnaire Answer Date Recorded [...] any time in the past 12 m [facility], were you homeless or living in a alf (including now)? No 10/04/2025 [facility] Utilities Answer Date Recorded In the past [...] Description 11/29/2025 10:40 AM EST Office Visit [facility] [place] [facility] [address] [place] [address] Julia Martinez PA [address] [place] [address] 12/09/2025 11:20 AM EST Office Visit [place] [facility] [address], 1[address] [place] [address] Hector Fu, NILDA [address] [place] [address] 12/14/2025 3:00 PM EST Office Visit [facility] [address] [place] [address] Beto Hair DO [address] [place] [address] documented as of this encounter Visit Diagnoses Not on filedocumented in this encounter Additional Health Concerns Assessment Noted Time A Body Mass Index follow-up plan has been documented for the patient 09/09/2025 1:57 PM EST documented as of this encounter Care Teams Quality Liaison Relationship Specialty Start Date End Date System, Provider Not In, [address] [place] [address] PCP - General Family Medicine 08/27/25 Jb Wayne [facility] [address] [place] [address] 08/27/25 Myrna Wagoner, [employer] CONSULTANT VALUE-BASED [place] [address] None TCM Nurse 09/29/25 Ricardo Wayne Community Health Worker 10/06/25 documented as of this encounter
--- OUTSIDE RECORDS SUMMARY | 2025-10-23 09:36 | XMS_ITS | Encounter Summary ---
Author Organization [facility] Address [address] [place] [address] Care Team Providers Care Junk Dealer Name Role Phone System, Provider Not In MD Primary Care Provider Unavailable Jb Wayne Unavailable [phone] Myrna Wagoner LPN Unavailable Unavailable Ricardo Wayne Unavailable Unavailable Reason for Visit * Reason Comments TCM Encounter Details Date Type Department Care Team (Late st Contact Info) Description 10/12/2025 Patient Outreach POPULATION HEALTH [address] [facility] [place], [address] [place] [address] Myrna Wagoner LPN [employer] [place] [address] None TCM Social History Tobacco Use Types [...] How often do you attend [facility] or spiritism services? Patient unable to answer 08/30/2025 Do you belong to any clubs o r organizations such as confucianism groups, unions, [employer] or athletic groups, or school groups? Patient [...] and heating? Patient unable to answer 08/30/2025 [facility] of Occupat ional Health - Occupational Stress [...] any time in the past 12 m [facility], were you homeless or living in a correction (including now)? No 10/04/2025 [facility] Utilities Answer Date Recorded In the past [...] encounter Miscellaneous Notes * Progress Notes - Myrna Wgaoner LPN - 10/12/2025 12:03 PM EST 10/12/2025 TCM Follow-up Call Patient reached: Yes Outcome: Patient reached out to [facility] nurse. She has returned to [place] and had questions regarding moving to a ground floor apartment and transportation. Linda Wayne/CHW has reached out to patient,will send Teams message to follow up. Patient did not have CHW direct phone number and didn't know who else to call. Action: Message sent to CHW for patient follow up. documented in this encounter Plan of Treatment Upcoming Encounters Date Type Department Care Team (Late st Contact Info) Description 11/29/2025 10:40 AM EST Office Visit [facility] [place] [facility] [address] [place] [address] Julia Martinez PA [address] [place] [address] 12/09/2025 11:20 AM EST Office Visit [place] [facility] [address], 1st [place] [address] Hector Fu, NILDA [address] [place] [address] 12/14/2025 3:00 PM EST Office [facility] [address] [place] [address] Beto Hair DO [address] [place] [address] documented as of this encounter Visit Diagnoses Not on filedocumented in this encounter Additional Health Concerns Assessment Noted Time A Body Mass Index follow-up plan has been documented for the patient 09/09/2025 1:57 PM EST documented as of this encounter Care Teams Junk Dealer Relationship Specialty Start Date End Date System, Provider Not In, [address] [place] [address] PCP - General Family Medicine 08/27/25 Jb Wayne [address] [place] [address] 08/27/25 Myrna Wagoner LPN [employer] [place] [address] None TCM Nurse 09/29/25 Ricardo Wayne Community Health Worker 10/06/25 documented as of this encounter
--- OUTSIDE RECORDS SUMMARY | 2025-10-23 09:36 | XMS_ITS | Clinical Summary ---
Author Organization [facility] Address [address] [place] [address] Care Team Providers Care Net Fisher Name Role Phone System, Provider Not In MD Primary Care Provider Unavailable Jb Wayne Unavailable [phone] Myrna Wagoner LPN Unavailable Unavailable Ricardo Wayne Unavailable Unavailable Allergies Active Allergy Reactions Criticality Noted Date Comments Gabapentin Hallucinations High 09/06/2025 Pt states she has nightmares that goes on for hours and can't tell difference in reality and dreams Medications mirtazapine (Remeron) 30 MG tablet Take 1 tablet by mouth nightly. Active DULoxetine (Cymbalta) [address] capsule Take 1 capsule by mouth daily. Do not crush or chew. Active albuterol 108 (90 Base) MCG/ACT inhaler Inhale 2 puffs 4 times a day. Active levothyroxine (Synthroid, Levoxyl) 100 MCG tablet Take 1 tablet by mouth every morning. Active rosuvastatin (Crestor) 40 MG tablet Take 1 tablet by mouth daily. Active acetaminophen (Tylenol) 500 MG tablet Take 2 tablets by mouth every 6 hours as needed for headaches or pain. 5 Active carvedilol (Coreg) 12.5 MG tablet Take 1 tablet by mouth 2 times a day. 5 Active dantrolene (Dantrium) 25 MG capsule Take 1 capsule by mouth daily. Active lisinopril 5 MG tablet Take 1 tablet by mouth daily. Active melatonin tablet Take 2 tablets by mouth at night as needed for sleep. Active polyethylene glycol (Miralax) 17 g packet Take 17 g by mouth 2 times a day. Active pregabalin (Lyrica) 25 MG capsule Take 1 capsule by mouth 2 times a day as needed (headache). Active senna-docusate (Elda-Colace) 8.6-50 MG tablet Take 2 tablets by mouth 2 times a day. Active traZODone (Desyrel) 50 MG tablet Take 1 tablet by mouth at night as needed for sleep. Active Active Problems Problem Noted Date Diagnosed Date Uremia 09/09/2025 Thrombocytosis 09/09/2025 Impaired mobility and ADLs 09/09/2025 Anxiety and depression 09/09/2025 Hyponatremia 09/09/2025 History of spinal fusion 09/09/2025 QT prolongation 09/09/2025 HTN (hypertension) 08/28/2025 Assessment & Plan (08/29/2025 12:04 PM EDT): Goal SBP<150 PRN Hydralazine and Labetalol Cardene off since 08/28 @ 2200 Continue coreg 12.5mg BID Assessment & Plan (08/28/2025 3:11 AM EDT): Goal SBP<150 PRN Hydralazine and Labetalol Cardene drip as needed SAH (subarachnoid hemorrhage) 08/28/2025 Assessment & Plan (08/29/2025 12:04 PM EDT): 08/27: L frontal ICH w/ small SAH NS consulted --> DSA today with possible intervention SBP<150 Keep HOB elevated Hold all AP/AC/DVT ppx NIHSS and neuro examinations per ICU protocol Will continue ongoing stroke education PT/OT as appropriate Assessment & Plan (08/28/2025 3:11 AM EDT): -CT/CTA findings as noted -NS consulted -F/u Repeat CT head - MRI pending -Cardene infusion to maintain SBP less than 150 -Keep HOB elevated -Hold all AP/AC/DVT ppx -NIHSS and neuro examinations per ICU protocol -Will continue ongoing stroke education -PT/OT as appropriate Cerebral edema 08/28/2025 Assessment & Plan (08/29/2025 12:04 PM EDT): 08/27: L frontal ICH w/ small SAH NS consulted --> DSA today with possible intervention SBP<150 Keep HOB elevated Hold all AP/AC/DVT ppx NIHSS and neuro examinations per ICU protocol Will continue ongoing stroke education PT/OT as appropriate Assessment & Plan (08/28/2025 3:11 AM EDT): -CT/CTA findings as noted -NS consulted -F/u Repeat CT head - MRI pending -Cardene infusion to maintain SBP less than 150 -Keep HOB elevated -Hold all AP/AC/DVT ppx -NIHSS and neuro examinations per ICU protocol -Will continue ongoing stroke education -PT/OT as appropriate Electrolyte disturbance 08/28/2025 Assessment & Plan (08/29/2025 12:04 PM EDT): Replace per ICU protocol Assessment & Plan (08/28/2025 3:11 AM EDT): Replace per ICU protocol Feeding difficulty 08/28/2025 Assessment & Plan (08/29/2025 12:04 PM EDT): Tolerating TF via DHT WIRE MESH FILTER FABRICATOR following, MBS pending on 08/30 Assessment & Plan (08/28/2025 3:11 AM EDT): Secondary to dysphagia NG/OG as necessary for PO access Nutrition consulted for TF recs, appreciate coordination of care Tube feeding per nutritional recommendations via DHT WIRE MESH FILTER FABRICATOR consult as indicated Acute intra-cranial hemorrhage 08/27/2025 Assessment & Plan (08/29/2025 12:04 PM EDT): 08/27: L frontal ICH w/ small SAH NS consulted --> DSA today with possible intervention SBP<150 Keep HOB elevated Hold all AP/AC/DVT ppx NIHSS and neuro examinations per ICU protocol Will continue ongoing stroke education PT/OT as appropriate Assessment & Plan (08/28/2025 3:11 AM EDT): -CT/CTA findings as noted -NS consulted -F/u Repeat CT head - MRI pending -Cardene infusion to maintain SBP less than 150 -Keep HOB elevated -Hold all AP/AC/DVT ppx -NIHSS and neuro examinations per ICU protocol -Will continue ongoing stroke education -PT/OT as appropriate Resolved Problems Problem Noted Date Diagnosed Date Resolved Date Leukocytosis 08/28/2025 09/09/2025 Assessment & Plan (08/29/2025 12:04 PM EDT): Wbc 10 from 16, afebrile Multifactorial in setting of recent surgery and IPH Continue to follow labs and signs of infection May require further investigation in the future Assessment & Plan (08/28/2025 3:11 AM EDT): WBC Count Date Value Ref Range Status 08/27/2025 12.08 (H) 3.70 - 10.30 10*3/uL Final Multifactorial in setting of recent surgery and IPH Continue to follow labs and signs of infection May require further investigation in the future Hyperglycemia 08/28/2025 09/09/2025 Assessment & Plan (08/28/2025 3:11 AM EDT): Glucose, Plasma Date Value Ref Range Status 08/27/2025 171 (H) 74 - 99 mg/dL Final Sliding Scale Insulin for glycemic control while in ICU NSTEMI (non-ST elevated myoc ardial infarction) 08/28/2025 09/09/2025 Assessment & Plan (08/28/2025 3:11 AM EDT): Troponin 94 ->103 on admission Encounters Date Type Department Care Team Description 10/19/2025 Patient Outreach [facility] [address], [address] [place] [address] Tone, Ricardo Chw/[facility] 10/15/2025 Patient Outreach [facility] [place] [address] Tone, Ricardo [facility] 10/15/2025 Travel 10/14/2025 Patient Outreach [facility], [address] [place] [address] Tone, Ricardo [facility] 10/13/2025 Patient Outreach [facility], [address] [place] [address] Tone, Ricardo [facility] 10/12/2025 Patient Outreach [facility] [address], [address] [place] [address] Tone, Ricardo [facility] 10/12/2025 Patient Outreach [facility] Critical access hospital [address], [address] [place] [address] Myrna Wagoner, SITE CONTROLLER TCM 10/06/2025 Patient Outreach [facility] Critical access hospital [address], [address] [place] [address] Gerardo Phillips, NELI [facility] 10/06/2025 Patient Outreach [facility] Critical access hospital [address], [address] [place] [address] Myrna Wagoner, SITE CONTROLLER TCM 10/05/2025 Patient Outreach [facility] Critical access hospital [address], [address] [place] [phone] Myrna Wagoner, SITE CONTROLLER TCM 10/04/2025 Patient Outreach [facility] Critical access hospital [address], [address] [place] [phone] Myrna Wagoner, SITE CONTROLLER TCM 10/04/2025 Patient Outreach [facility] Critical access hospital [address], [address] [place] [address] Myrna Wagoner SITE CONTROLLER TCM 09/29/2025 Patient Outreach [facility] Critical access hospital [address], [address] [place] [address] Myrna Wagoner LPN [facility] 09/10/2025 Travel 09/09/2025 Travel 09/07/2025 Travel 09/01/2025 Travel 08/31/2025 Travel 08/30/2025 Travel 08/29/2025 10:59 AM EDT Anesthesia Event [facility] Inter[facility]iology [address] [place] [address] Vipul Holt MD Poppel, Tony J, VICKIE 08/29/2025 Travel 08/28/2025 Travel 08/27/2025 8:46 PM EDT - 09/09/2025 2:55 PM EST Hospital Encounter [facility] Inpatient [address] [place] [address] Shahida Parry, Vinicius Dominguez MD O'Connor, Kevin F, Rylee Leach MD Rasheed, Izad-Yar D, Shane Fisher MD Acute intra-cranial hemorrhage (CMS/HCC) (Primary Dx); Intracranial hemorrhage (CMS/HCC) Discharge Disposition: Rehab Facility 08/27/2025 Travel from Last 3 Months Family History Medical History Relation Name Comments [...] answer 08/30/2025 How often do you attend [facility] or zoroastrianism services? Patient unable to answer 08/30/2025 Do you belong to any clubs o r organizations such as cheondoism groups, unions, fraternal or athletic groups, or [...] and heating? Patient unable to answer 08/30/2025 [facility] - Occupational Stress Questionnaire Answer Date Recorded [...] money to buy more. Never true 10/04/20 Within the past 12 months, t he [...] any time in the past 12 m ont, were you homeless or living in a usp (including now)? No 10/04/2025 [facility] Utilities Answer Date Recorded In the [...] Height 172.7 cm (5' 8 ) 08/28/2025 9:50 PM EDT Body Mass Index 23.3 08/28/2025 9:50 PM EDT Plan of Treatment Upcoming Encounters Date Type Department Care Team (Late st Contact Info) Description 11/29/2025 10:40 AM EST Office Visit [facility] Pierron Jam [address] [place] [address] Julia Martinez PA [address] [place] [address] 12/09/2025 11:20 AM EST Office Visit [facility] [address], [address] [place] [address] Hector Fu, RAILROAD WATCHMAN [address] [place] [address] 12/14/2025 3:00 PM EST Office Visit [facility] [address] [place] [address] Beto Hair DO [address] [place] [address] Health Maintenance Due Date Last Done Comments [facility]-Depression Screening 1966 [facility]-HIV Screening 1966 [facility]-Hepatitis C Screening 1966 [facility]-Medicare Annual Wellness (AWV) 1966 [facility]-/Child/Adol SDOH Screenings 1966 Diabetes: Dental Exam 1976 [facility]-Hepatitis B Vaccines (1 of 3 - 19+ 3-dose series) 1985 [facility]-Pneumococcal Vaccine: 50 + Years (1 of 2 - PCV) 1985 [facility]-Pap Smear 08/03/2005 08/03/2002 [facility]-Cervical Cancer Screening 08/03/2007 [facility]-HPV/Cotest 08/03/2007 08/03/2002 CT Colonography 2011 Colonoscopy 2011 FIT-DNA 2011 FIT 2011 FOBT 2011 Sigmoidoscopy 2011 [facility]-Colorectal Cancer Screening 2011 [facility]-Zoster Vaccines (1 of 2) 2016 [facility]-Breast Cancer Screening 02/28/2018 02/29/2016 [id number] Vaccine (3 - Moderna risk series) 04/06/2021 03/09/2021, 02/09/2021 [facility]-Influenza Vaccine (#1) 2025 [facility]-Diabetes: Hemoglobin A1C 02/27/2026 08/30/2025 [facility]- SDOH Screenings 04/04/2026 [facility]-Adult SDOH Screenings 04/04/2026 10/04/2025 [facility]-DTaP,Tdap,and Td Vaccine s (2 - Td or Tdap) 02/20/2031 02/20/2021 HPV Vaccines (No Doses Required) Completed [facility]-HIB Vaccines Aged Out No longer e [...] BARIUM SWALLOW Routine 09/07/2025 3:45 PM EST RENAL FUNCTION PANEL, PLASMA Routine 09/07/2025 1:52 PM EST MAGNESIUM, PLASMA Routine 09/07/2025 1:5 2 PM EST CBC W/O DIFFERENTIAL Routine 09/07/2025 1:52 PM EST OXYGEN THERAPY Routine 09/07/2025 8:00 AM EST SODIUM, URINE, RANDOM Routine 09/07/2025 5:55 AM EST OSMOLALITY, URINE Routine 09/07/2025 5:5 5 AM EST URINE FAJARDO PANEL Routine 09/07/2025 5:55 AM EST OXYGEN THERAPY Routine 09/06/2025 8:00 PM EST URINALYSIS MICROSCOPIC FOR UA REFLEX Routine 09/06/2025 10:00 AM EST URINALYSIS WITH REFLEX MICROSCOPIC Routine 09/06/2025 10:00 AM EST URINALYSIS WITH REFLEX MICROSCOPIC AND CULTURE Routine 09/06/2025 10:00 AM EST SODIUM, PLASMA Routine 09/06/2025 9:57 AM EST OXYGEN THERAPY Routine 09/06/2025 8:00 AM EST OXYGEN THERAPY Routine 09/05/2025 8:00 PM EST OSMOLALITY, URINE Routine 09/05/2025 2:0 9 PM EST SODIUM, URINE, RANDOM Routine 09/05/2025 2:09 PM EST SODIUM, PLASMA Routine 09/05/2025 8:37 AM EST OXYGEN THERAPY Routine 09/05/2025 8:00 AM EST MAGNESIUM, PLASMA Routine 09/05/2025 1:0 4 AM EDT RENAL FUNCTION PANEL, PLASMA Routine 09/05/2025 1:04 AM EDT CBC W/O DIFFERENTIAL Routine 09/05/2025 1:04 AM EDT OXYGEN THERAPY Routine 09/04/2025 8:00 PM EDT OXYGEN THERAPY Routine 09/04/2025 8:00 AM EDT OXYGEN THERAPY Routine 09/03/2025 8:00 PM EDT OXYGEN THERAPY Routine 09/03/2025 8:00 AM EDT PROCALCITONIN, PLASMA Add-On 09/03/2025 6:42 AM EDT RENAL FUNCTION PANEL, PLASMA Routine 09/03/2025 6:42 AM EDT CBC W/O DIFFERENTIAL Routine 09/03/2025 6:42 AM EDT OXYGEN THERAPY Routine 09/02/2025 8:00 PM EDT OXYGEN THERAPY Routine 09/02/2025 8:00 AM EDT CBC WITH AUTO DIFFERENTIAL Routine 09/02/2025 3:13 AM EDT OXYGEN THERAPY Routine 09/01/2025 8:[address] HEAD WO IV CONTRAST STAT 10:26 AM EDT OXYGEN THERAPY Routine 09/01/2025 8:00 AM EDT PROCALCITONIN, PLASMA Add-On 09/01/2025 2:19 AM EDT MAGNESIUM, PLASMA Routine 09/01/2025 2:1 9 AM EDT COMPREHENSIVE METABOLIC PANEL, PLASMA Routine 09/01/2025 2:19 AM EDT CBC W/O DIFFERENTIAL Routine 09/01/2025 2:19 AM EDT OXYGEN THERAPY Routine 08/31/2025 8:00 PM EDT URINALYSIS MICROSCOPIC FOR UA REFLEX Routine 08/31/2025 4:02 PM EDT URINALYSIS WITH REFLEX MICROSCOPIC Routine 08/31/2025 4:02 PM EDT ECHO, ADULT TRANSTHORACIC COMPLETE Routine 08/31/2025 11:52 AM EDT OXYGEN THERAPY Routine 08/31/2025 8:00 AM EDT CBC W/O DIFFERENTIAL Routine 08/31/2025 1:30 AM EDT BASIC METABOLIC PANEL, PLASMA Routine 08/31/2025 1:30 AM EDT MAGNESIUM, PLASMA Routine 08/31/2025 1:3 0 AM EDT PHOSPHORUS, PLASMA Routine 08/31/2025 1: 30 AM EDT OXYGEN THERAPY Routine 08/30/2025 8:00 PM EDT FL MODIFIED BARIUM SWALLOW Routine 08/30/2025 10:36 AM EDT OXYGEN THERAPY Routine 08/30/2025 8:00 AM EDT OXYGEN THERAPY STAT 08/30/2025 8:00 AM EDT MR HEAD WO IV CONTRAST Routine 5:10 AM EDT TSH REFLEX FT4 Add-On 08/30/2025 3:34 AM EDT LIPID PROFILE, PLASMA Add-On 08/30/2025 3:34 AM EDT HEMOGLOBIN A1C Add-On 08/30/2025 3:34 AM EDT CBC W/O DIFFERENTIAL Routine 08/30/2025 3:34 AM EDT BASIC METABOLIC PANEL, PLASMA Routine 08/30/2025 3:34 AM EDT MAGNESIUM, PLASMA Routine 08/30/2025 3:3 4 AM EDT PHOSPHORUS, PLASMA Routine 08/30/2025 3: 34 AM EDT OXYGEN THERAPY Routine 08/29/2025 8:00 PM EDT OXYGEN THERAPY STAT 08/29/2025 8:00 PM EDT XR ABDOMEN 1 VIEW Routine 08/29/2025 6:5 0 PM EDT OXYGEN THERAPY Routine 08/29/2025 12:05 PM EDT OXYGEN THERAPY Routine 08/29/2025 12:05 PM EDT OXYGEN THERAPY Routine 08/29/2025 12:05 PM EDT GA CRITICAL CARE, E/M 30-74 MINUTES Routine 08/29/2025 12:00 PM EDT Acute intra-cranial hemorrhage (CMS/HCC) IR ANGIOGRAM CAROTID CEREBRAL BILATERAL Routine 08/29/2025 11:56 AM EDT PB ANESTHESIA PLACEHOLDER Routine 08/29/2025 11:09 AM EDT GA AN ELECTIVE ENDOTRACHEAL AIRWAY Routine 08/29/2025 11:09 AM EDT OXYGEN THERAPY STAT 08/29/2025 8:00 AM EDT CBC W/O DIFFERENTIAL Routine 08/29/2025 12:53 AM EDT BASIC METABOLIC PANEL, PLASMA Routine 08/29/2025 12:53 AM EDT MAGNESIUM, PLASMA Routine 08/29/2025 12: 53 AM EDT PHOSPHORUS, PLASMA Routine 08/29/2025 12 :53 AM EDT OXYGEN THERAPY STAT 08/28/2025 8:00 [...] WO IV CONTRAST Timed 4:29 AM EDT BASIC METABOLIC PANEL, PLASMA Routine 08/28/2025 3:20 AM EDT MAGNESIUM, PLASMA Routine 08/28/2025 3:2 0 AM EDT PHOSPHORUS, PLASMA Routine 08/28/2025 3: 20 AM EDT IONIZED CALCIUM, WHOLE BLOOD Routine 08/28/2025 3:20 AM EDT CBC WITH AUTO DIFFERENTIAL Routine 08/28/2025 3:20 AM EDT TROPONIN T, HIGH SENSITIVITY, 2 HOUR, PLASMA Timed 08/28/2025 3:20 AM EDT ARACELI AURIS SURVEILLANCE BY PCR Routine 08/28/2025 3:13 AM EDT MULTI DRUG RESISTANCE TEST Routine 08/28/2025 3:13 AM EDT XR CHEST 1 VIEW STAT 08/28/2025 12:44 AM EDT URINALYSIS MICROSCOPIC FOR UA REFLEX Routine 08/28/2025 12:21 AM EDT URINALYSIS WITH REFLEX MICROSCOPIC Routine 08/28/2025 12:21 AM EDT GA CRITICAL CARE, E/M 30-74 MINUTES Routine 08/28/2025 12:12 AM EDT Acute intra-cranial hemorrhage (CMS/HCC) ECG ADULT STAT 08/28/2025 12:03 AM EDT PHOSPHORUS, PLASMA Add-On 08/27/2025 11 :11 PM EDT MAGNESIUM, PLASMA Add-On 08/27/2025 11: 11 PM EDT TROPONIN T, HIGH SENSITIVITY, 0 HOUR, PLASMA, REFLEX TO 2 HOUR STAT 08/27/2025 11:11 PM EDT ANTI XA LEVEL UNFRACTIONATED HEPARIN STAT 08/27/2025 11:11 PM EDT TROPONIN T, HIGH SENSITIVITY, 2 HOUR, PLASMA Timed 08/27/2025 10:19 PM EDT TEST QUALITATIVE PLASMA STAT 08/27/2025 9:11 PM EDT COMPREHENSIVE METABOLIC PANEL, PLASMA STAT 08/27/2025 9:11 PM EDT APTT STAT 08/27/2025 9:11 PM EDT PROTHROMBIN TIME(PT) / INR STAT 08/27/2025 9:11 PM EDT CBC WITH AUTO DIFFERENTIAL STAT 08/27/2025 9:11 PM EDT ECG ADULT [...] CATH,ART,PERCUT,SHORTTE RM Routine 08/27/2025 8:46 PM EDT GA INSERT CATH,ART,PERCUT,SHORTTE RM Routine 08/27/2025 8:46 PM EDT CYTO DATA CONVERSION Routine 08/03/2002 12:00 AM EDT from Last 3 Months or Most Recently Relevant to Health Maintenance Results * ADULT CARDIAC EVENT MONITOR (09/09/2025 [...] * (ABNORMAL) Sodium (09/08/2025 3:11 AM EST) Only the most recent of3 resultswithin the time period is included. Sodium, Plasma 134(L) 136 - 145 mmol/L 09/08/2025 3:51 AM EST [facility] Blood Venous blood specimen / Unknown Venipuncture / Unknown 09/08/2025 3:11 AM EST 09/08/2025 3:16 AM EST Alfredo Richardson APRN LAB BLOOD ORDERABLES Final Result [facility] [address] [place] [address] * [place] Modified Barium Swallow (09/07/2025 3:45 PM EST) Only the most recent of2 resultswithin the time period is included. Anatomical Region Laterality Modality Esophagus, stomach and [...] 09/08/2025 8:07 AM EST CLINICAL INDICATION: Per WIRE MESH FILTER FABRICATOR TECHNIQUE: Modified barium swallow was performed utilizing [...] Banks MD - 09/08/2025 CLINICAL INDICATION: Per WIRE MESH FILTER FABRICATOR TECHNIQUE: Modified barium swallow was performed utilizing [...] signing this report, I, the attending physician, [email or web address] I have personally reviewed the images/data for the aboveexamination(s) and agree with the final edited report. Drafted by Claude Mercedes MD on 09/07/2025 4:25 PM Final report signed by Xandre Banks MD on 09/08/2025 8:07 AM us Tanika F Ali RAILROAD WATCHMAN IMG FLUOROSCOPY PROCEDURES Fin al Result * (ABNORMAL) CBC W/O Differential (09/07/2025 1:52 PM EST) Only the most recent of7 resultswithin the time period is included. WBC Count 9.75 3.70 - 10.30 10*3/uL LAB HEMATOLOGY METHOD 09/07/2025 2:47 PM EST [facility] RBC Count 3.96 3.90 - 5.20 10*6/uL LAB HEMATOLOGY METHOD 09/07/2025 2:47 PM EST [facility] HGB 12.9 11.2 - 15.7 g/dL LAB HEMATOLOGY METHOD 09/07/2025 2:47 PM EST [facility] HCT 36.9 34.0 - 45.0 % LAB HEMATOLOGY METHOD 09/07/2025 2:47 PM EST [facility] Platelet Count 407(H) 155 - 369 10*3/uL LAB HEMATOLOGY METHOD 09/07/2025 2:47 PM EST [facility] MCV 93 79 - 98 fL LAB HEMATOLOGY METHOD 09/07/2025 2:47 PM EST [facility] MCH 32.6(H) 26.0 - 32.0 pg LAB HEMATOLOGY METHOD 09/07/2025 2:47 PM EST [facility] MCHC 35.0 30.7 - 35.5 g/dL LAB HEMATOLOGY METHOD 09/07/2025 2:47 PM EST [facility] RDW 11.6 11.5 - 14.5 % LAB HEMATOLOGY METHOD 09/07/2025 2:47 PM EST [facility] MPV 8.7(L) 8.8 - 12.5 fL LAB HEMATOLOGY METHOD 09/07/2025 2:47 PM EST [facility] nRBC 0.0 <=0.0 per 100 WBCs LAB HEMATOLOGY METHOD 09/07/2025 2:47 PM EST [facility] Blood Venous blood specimen / Unknown Venipuncture / Unknown 09/07/2025 1:52 PM EST 09/07/2025 2:39 PM EST Alfredo Richardson APRN LAB BLOOD ORDERABLES Final Result [facility] [address] [place] [address] * Magnesium (09/07/2025 1:52 PM EST) Only the most recent of8 resultswithin the time period is included. Magnesium, Plasma 2.0 1.9 - 2.4 mg/dL 09/07/2025 2:41 PM EST [facility] Blood Venous blood specimen / Unknown Venipuncture / Unknown 09/07/2025 1:52 PM EST 09/07/2025 2:11 PM EST Alfredo Richardson RAILROAD WATCHMAN LAB BLOOD ORDERABLES Final Result [facility] [address] [place] [address] * (ABNORMAL) Renal function panel (09/07/2025 1:52 PM EST) Only the most recent of3 resultswithin the time period is included. Glucose, Plasma 155(H) 74 - 99 mg/dL 09/07/2025 2:41 PM EST [facility] BUN, Plasma 24(H) 7 - 21 mg/dL 09/07/2025 2:41 PM EST [facility] Creatinine, Plasma 0.73 0.60 - 1.10 mg/dL 09/07/2025 2:41 PM EST [facility] BUN/Creatinine Ratio 33 09/07/2025 2:41 PM EST [facility] Sodium, Plasma 132(L) 136 - 145 mmol/L 09/07/2025 2:41 PM EST [facility] Potassium, Plasma 3.9 3.6 - 4.9 mmol/L 09/07/2025 2:41 PM EST [facility] Chloride, Plasma 98 97 - 107 mmol/L 09/07/2025 2:41 PM EST [facility] CO2, Plasma 24 22 - 29 mmol/L 09/07/2025 2:41 PM EST [facility] Anion Gap 10 6 - 16 mmol/L 09/07/2025 2:41 PM EST [facility] Total Calcium, Plasma 9.1 8.9 - 10.2 mg/dL 09/07/2025 2:41 PM EST [facility] Phosphorus, Plasma 3.9 2.5 - 4.5 mg/dL 09/07/2025 2:41 PM EST [facility] Albumin, Plasma 3.6 3.5 - 5.2 g/dL 09/07/2025 2:41 PM EST [facility] eGFRcr 94.9 mL/min/1.7 3m*2 09/07/2025 2:41 PM EST [facility] Comment:Reported eGFRcr in m L/min/1.73m2 is based the CKD-EPI 2020 equation that does not use a race coefficient. Blood Venous blood specimen / Unknown Venipuncture / Unknown 09/07/2025 1:52 PM EST 09/07/2025 2:11 PM EST Alfredo Richardson RAILROAD WATCHMAN LAB BLOOD ORDERABLES Final Result Performing Organization Address City/[facility]/ZIP Co de Phone Number [facility] [address] [place] [address] * Urine Fajardo Panel (09/07/2025 5:55 AM EST) Extra Reflex urine culture not indicated 09/07/2025 8:02 AM EST [facility] Urine Urine specimen obtained by clean catch procedure / Unknown Non-blood Collection / Unknown 09/07/2025 5:55 AM EST 09/07/2025 6:12 AM EST Tanika Cooney APRN LAB URINE ORDERABLES Final Res ult Performing Organization Address City/[facility]/ZIP Co de Phone Number [facility] [address] [place] [address] * Sodium, urine, random (09/07/2025 5:55 AM EST) Only the most recent of2 resultswithin the time period is included. Sodium, Urine 74 mmol/L 09/07/2025 6:28 AM EST [facility] Urine Urine specimen obtained by clean catch procedure / Unknown Non-blood Collection / Unknown 09/07/2025 5:55 AM EST 09/07/2025 6:11 AM EST Tanika F Ali RAILROAD WATCHMAN LAB URINE ORDERABLES Final Res ult Performing Organization Address [facility] de Phone Number [facility] [address] [place] [address] * Osmolality, urine (09/07/2025 5:55 AM EST) Only the most recent of2 resultswithin the time period is included. Osmolality, Urine 607 50 - 1,200 mOsm/kg 09/07/2025 6:55 AM EST [facility] Urine Urine specimen obtained by clean catch procedure / Unknown Non-blood Collection / Unknown 09/07/2025 5:55 AM EST 09/07/2025 6:12 AM EST Tanika Cooney [employer] [facility] URINE ORDERABLES Final Res ult Performing Organization Address [facility] Phone Number [facility] [address] [place] [address] * Urinalysis Microscopic Examination (09/06/2025 10:00 AM EST) Only the most recent of3 resultswithin the time period is included. Urine Urine specimen obtained by clean catch procedure / Unknown Non-blood Collection / Unknown 09/06/2025 10:00 AM EST 09/06/2025 10:05 AM EST Tanika Cooney APRN LAB URINE ORDERABLES Final Res ult Performing Organization Address [facility] Phone Number [facility] [address] [place] [address] * (ABNORMAL) Urinalysis with reflex microscopic (Culture NOT Included) (09/06/2025 10:00 AM EST) Only the most recent of3 resultswithin the time period is included. Color, Urine Yellow LAB URINALYSIS - AUTOMATED METHOD 09/06/2025 10:19 AM EST [facility] Clarity, Urine Clear LAB URINALYSIS - AUTOMATED METHOD 09/06/2025 10:19 AM EST [facility] Spec [place], Urine 1.021 1.005 - 1.030 LAB URINALYSIS - AUTOMATED METHOD 09/06/2025 10:19 AM EST [facility] pH, Urine 6.5 5.0 - 8.0 LAB URINALYSIS - AUTOMATED METHOD 09/06/2025 10:19 AM [facility] Protein, Urine Negative Negative mg/dL LAB URINALYSIS - AUTOMATED METHOD 09/06/2025 10:19 AM [facility] Glucose, Urine Negative Negative mg/dL LAB URINALYSIS - AUTOMATED METHOD 09/06/2025 10:19 AM [facility] Ketones, Urine Negative Negative mg/dL LAB URINALYSIS - AUTOMATED METHOD 09/06/2025 10:19 AM [facility] Blood, Urine Negative Negative LAB URINALYSIS - AUTOMATED METHOD 09/06/2025 10:19 AM [facility] Bilirubin, Urine Negative Negative LAB URINALYSIS - AUTOMATED METHOD 09/06/2025 10:19 AM [facility] Urobilinogen, Urine 1.0 0.2 to 1.0 mg/dL LAB URINALYSIS - AUTOMATED METHOD 09/06/2025 10:19 AM [facility] Leukocytes, Urine Trace(A) Negative LAB URINALYSIS - AUTOMATED METHOD 09/06/2025 10:19 AM [facility] Nitrite, Urine Negative Negative LAB URINALYSIS - AUTOMATED METHOD 09/06/2025 10:19 AM [facility] RBC, Urine 1 0 to 3 /HPF LAB URINALYSIS - AUTOMATED METHOD 09/06/2025 10:19 AM [facility] WBC, Urine 0 - 5 0 to 5 /HPF LAB URINALYSIS - AUTOMATED METHOD 09/06/2025 10:19 AM [facility] Squamous Epithelial Cells 3 - 5 0 to 5 /HPF LAB URINALYSIS - AUTOMATED METHOD 09/06/2025 10:19 AM [facility] Hyaline Casts 0 - 2 0 to 5 /LPF LAB URINALYSIS - AUTOMATED METHOD 09/06/2025 10:19 AM [facility] Bacteria, Urine Present Negative LAB URINALYSIS - AUTOMATED METHOD 09/06/2025 10:19 AM [facility] Urine Urine specimen obtained by clean catch procedure / Unknown Non-blood Collection / Unknown 09/06/2025 10:00 AM EST 09/06/2025 10:05 AM EST us Tanika Cooney APRN LAB URINE ORDERABLES Final Res ult Performing Organization Address [facility] Co de Phone Number [facility] [address] [place] [address] * Procalcitonin (09/03/2025 6:42 AM EDT) Only the most recent of2 resultswithin the time period is included. Procalcitonin, Plasma <0.06 <0.09 ng/mL 09/03/2025 8:32 AM EDT [facility] Blood Venous blood specimen / Unknown Venipuncture / Unknown 09/03/2025 6:42 AM EDT 09/03/2025 6:48 AM EDT Narrative [facility] - 09/03/2025 8:32 AM EDT Procalcitonin [...] predict 28 day mortality risk. Please consult [email or web address] for more information. Test performed at [facility], [facility]. Tanika Cooney APRN LAB BLOOD ORDERABLES Final Res ult Performing Organization Address [facility]/ZIP Co de Phone Number [facility] [address] [place] [address] * (ABNORMAL) CBC and differential (09/02/2025 3:13 AM EDT) Only the most recent of3 resultswithin the time period is included. WBC Count 14.14(H) 3.70 - 10.30 10*3/uL LAB HEMATOLOGY METHOD 09/02/2025 3:25 AM EDT [facility] RBC Count 4.45 3.90 - 5.20 10*6/uL LAB HEMATOLOGY METHOD 09/02/2025 3:25 AM EDT [facility] HGB 14.3 11.2 - 15.7 g/dL LAB HEMATOLOGY METHOD 09/02/2025 3:25 AM EDT [facility] HCT 40.8 34.0 - 45.0 % LAB HEMATOLOGY METHOD 09/02/2025 3:25 AM EDT [facility] Platelet Count 341 155 - 369 10*3/uL LAB HEMATOLOGY METHOD 09/02/2025 3:25 AM EDT [facility] MCV 92 79 - 98 fL LAB HEMATOLOGY METHOD 09/02/2025 3:25 AM EDT [facility] MCH 32.1(H) 26.0 - 32.0 pg LAB HEMATOLOGY METHOD 09/02/2025 3:25 AM EDT [facility] MCHC 35.0 30.7 - 35.5 g/dL LAB HEMATOLOGY METHOD 09/02/2025 3:25 AM EDT [facility] RDW 11.6 11.5 - 14.5 % LAB HEMATOLOGY METHOD 09/02/2025 3:25 AM EDT [facility] MPV 8.5(L) 8.8 - 12.5 fL LAB HEMATOLOGY METHOD 09/02/2025 3:25 AM EDT [facility] nRBC 0.0 <=0.0 per 100 WBCs LAB HEMATOLOGY METHOD 09/02/2025 3:25 AM EDT [facility] Differential Type Automated LAB HEMATOLOGY METHOD 09/02/2025 3:25 AM EDT [facility] Neutrophils % 70 % LAB HEMATOLOGY METHOD 09/02/2025 3:25 AM EDT [facility] Lymphocytes % 20 % LAB HEMATOLOGY METHOD 09/02/2025 3:25 AM EDT [facility] Monocytes % 7 % LAB HEMATOLOGY METHOD 09/02/2025 3:25 AM EDT [facility] Eosinophils % 3 % LAB HEMATOLOGY METHOD 09/02/2025 3:25 AM EDT [facility] Basophils % 0 % LAB HEMATOLOGY METHOD 09/02/2025 3:25 AM EDT [facility] Immature Granulocytes % 0 % LAB HEMATOLOGY METHOD 09/02/2025 3:25 AM EDT [facility] Neutrophils Absolute 9.75(H) 1.60 - 6.10 10*3/uL LAB HEMATOLOGY METHOD 09/02/2025 3:25 AM EDT [facility] Lymphocytes Absolute 2.88 1.20 - 3.90 10*3/uL LAB HEMATOLOGY METHOD 09/02/2025 3:25 AM EDT [facility] Monocytes Absolute 1.02(H) 0.30 - 0.90 10*3/uL LAB HEMATOLOGY METHOD 09/02/2025 3:25 AM EDT [facility] Eosinophils Absolute 0.39 0.00 - 0.50 10*3/uL LAB HEMATOLOGY METHOD 09/02/2025 3:25 AM EDT [facility] Basophils Absolute 0.06 0.00 - 0.10 10*3/uL LAB HEMATOLOGY METHOD 09/02/2025 3:25 AM EDT [facility] Immature Granulocytes Absolute 0.04 0.00 - 0.06 10*3/uL LAB HEMATOLOGY METHOD 09/02/2025 3:25 AM EDT [facility] Blood Venous blood specimen / Unknown Venipuncture / Unknown 09/02/2025 3:13 AM EDT 09/02/2025 3:18 AM EDT Narrative [facility] - 09/02/2025 3:25 AM EDT Therapeutic decision making should be based on absolute values, rather than percentages. us Tanika Cooney [employer]ILROAD WATCHMAN LAB BLOOD ORDERABLES Final Res ult [facility] [address] [place] [address] * CT Head wo IV Contrast (09/01/2025 10:26 AM EDT) Only the most recent of4 resultswithin the time period is included. Anatomical Region Laterality Modality Head Computed Tomogra [...] the superior left cerebrum and a measurable kdss-wk-shfju midline shift (3 mm), minimally increased in [...] increased and there is 3 mm of pmfn-ve-amlwb midline shift measured at the septum pellucidum [...] increased and there is 3 mm of aini-pv-vexhltylegfl shift measured at the septum pellucidum (image [...] overthe superior left cerebrum and a measurable hsgp-dj-hawte midline shift (3mm), minimally increased in the interval. No significant increase in subarachnoid hemorrhage in sulci over thesuperior left cerebrum. CRITICAL RESULT: No. COMMUNICATION: Per this written report. Drafted by Shahbaz Deras MD on 09/01/2025 11:07 AM Final report signed by Shahbaz Deras MD on 09/01/2025 11:17 AM Tanika F Ivet MOREN IMG CT PROCEDURES Final Result * (ABNORMAL) Comprehensive metabolic panel (09/01/2025 2:19 AM EDT) Only the most recent of2 resultswithin the time period is included. Glucose, Plasma 167(H) 74 - 99 mg/dL 09/01/2025 2:55 AM EDT [facility] BUN, Plasma 34(H) 7 - 21 mg/dL 09/01/2025 2:55 AM EDT [facility] Creatinine, Plasma 0.62 0.60 - 1.10 mg/dL 09/01/2025 2:55 AM EDT [facility] BUN/Creatinine Ratio 55 09/01/2025 2:55 AM EDT [facility] Sodium, Plasma 136 136 - 145 mmol/L 09/01/2025 2:55 AM EDT [facility] Potassium, Plasma 3.9 3.6 - 4.9 mmol/L 09/01/2025 2:55 AM EDT [facility] Chloride, Plasma 101 97 - 107 mmol/L 09/01/2025 2:55 AM EDT [facility] CO2, Plasma 23 22 - 29 mmol/L 09/01/2025 2:55 AM EDT [facility] Anion Gap 12 6 - 16 mmol/L 09/01/2025 2:55 AM EDT [facility] Total Calcium, Plasma 9.6 8.9 - 10.2 mg/dL 09/01/2025 2:55 AM EDT [facility] Total Protein 7.1 6.3 - 7.9 g/dL 09/01/2025 2:55 AM EDT [facility] Albumin, Plasma 4.1 3.5 - 5.2 g/dL 09/01/2025 2:55 AM EDT [facility] AST, Plasma 24 10 - 35 U/L 09/01/2025 2:55 AM EDT [facility] Comment:Hemolyzed, result ma y be falsely increased. ALT, Plasma 20 10 - 35 U/L 09/01/2025 2:55 AM EDT [facility] Alkaline Phosphatase, Plasma 108 46 - 142 U/L 09/01/2025 2:55 AM EDT [facility] Total Bilirubin, Plasma 0.8 0.2 - 1.1 mg/dL 09/01/2025 2:55 AM EDT [facility] eGFRcr 102.7 mL/min/1.7 3m*2 09/01/2025 2:55 AM EDT [facility] Comment:Reported eGFRcr in m L/min/1.73m2 is based the CKD-EPI 2020 equation that does not use a race coefficient. Blood Venous blood specimen / Unknown Venipuncture / Unknown 09/01/2025 2:19 AM EDT 09/01/2025 2:25 AM EDT us Alfredo Richardson [employer]ILRO[employer] WATCHMAN LAB BLOOD ORDERABLES Final Result [facility] [address] [place] [address] * ECHO, ADULT TRANSTHORACIC COMPLETE (08/31/2025 11:52 AM EDT) BSA 1.88 m2 [facility] ISCV Height 172.7 [facility] ISCV Weight 74.8 [facility] ISCV LVIDd 44 mm [facility] ISCV LVIDs 29 mm [facility] ISCV IVSd 10 mm [facility] ISCV LVPWd 10 mm [facility] ISCV LV MASS(C)D 147 g [facility]E ISCV UK CV ECHO LV MASS INDEX 78 g/m2 [...] Ao Diam 34 mm [facility] ISCV PA GA(ACCEL) 26.8 mmHg [facility]E ISCV LV mean PG [...] is no recent study available for direct azih-ej-mlqp comparison. Left Ventricle The left ventricle is [...] is no recent study available for direct gbdp-va-vqdi comparison. us Rylee Gupta MD CV ECHO PROCEDURES Final Resul t * Phosphorus, Plasma (08/31/2025 1:30 AM EDT) Only the most recent of5 resultswithin the time period is included. Phosphorus, Plasma 2.9 2.5 - 4.5 mg/dL 08/31/2025 2:13 AM EDT [facility] Blood Venous blood specimen / Unknown Venipuncture / Unknown 08/31/2025 1:30 AM EDT 08/31/2025 1:42 AM EDT us Bridgett Colindres APRN, DNP LAB BLOOD ORDERABLES Leia l Result [facility] [address] [place] [address] * (ABNORMAL) Basic Metabolic Panel, Plasma (08/31/2025 1:30 AM EDT) Only the most recent of4 resultswithin the time period is included. Glucose, Plasma 205(H) 74 - 99 mg/dL 08/31/2025 2:13 AM EDT [facility] BUN, Plasma 36(H) 7 - 21 mg/dL 08/31/2025 2:13 AM EDT [facility] Creatinine, Plasma 0.60 0.60 - 1.10 mg/dL 08/31/2025 2:13 AM EDT [facility] BUN/Creatinine Ratio 60 08/31/2025 2:13 AM EDT [facility] Sodium, Plasma 137 136 - 145 mmol/L 08/31/2025 2:13 AM EDT [facility] Potassium, Plasma 3.7 3.6 - 4.9 mmol/L 08/31/2025 2:13 AM EDT [facility] Chloride, Plasma 102 97 - 107 mmol/L 08/31/2025 2:13 AM EDT [facility] CO2, Plasma 23 22 - 29 mmol/L 08/31/2025 2:13 AM EDT [facility] Anion Gap 12 6 - 16 mmol/L 08/31/2025 2:13 AM EDT [facility] Total Calcium, Plasma 9.4 8.9 - 10.2 mg/dL 08/31/2025 2:13 AM EDT [facility] eGFRcr 103.5 mL/min/1.7 3m*2 08/31/2025 2:13 AM EDT [facility] Comment:Reported eGFRcr in m L/min/1.73m2 is based the CKD-EPI 2020 equation that does not use a race coefficient. Blood Venous blood specimen / Unknown Venipuncture / Unknown 08/31/2025 1:30 AM EDT 08/31/2025 1:42 AM EDT us Bridgett Colindres [employer]ILRO[employer] WATCHMAN, DNP LAB BLOOD ORDERABLES Leia l Result [facility] [address] [place] [address] * MR Head wo IV Contrast (08/30/2025 [...] Halina Bauer MD on 08/30/2025 7:47 AM Sergey Stern MD IMG MRI PROCEDURES Edited Re sult - Final * TSH Reflex FT4 (08/30/2025 3:34 AM EDT) Thyroid Stimulating Hormone, Plasma 1.44 0.40 - 4.20 uIU/mL 08/30/2025 8:29 AM EDT [facility] Blood Venous blood specimen / Unknown Venipuncture / Unknown 08/30/2025 3:34 AM EDT 08/30/2025 4:11 AM EDT Dora Villegas MD LAB BLOOD ORDERABLES Final Result [facility] [address] [place] [address] * (ABNORMAL) Hemoglobin A1c (08/30/2025 3:34 AM EDT) Hemoglobin A1c 6.2(H) <5.7 % 08/30/2025 10:54 AM EDT [facility] Blood Venous blood specimen / Unknown Venipuncture / Unknown 08/30/2025 3:34 AM EDT 08/30/2025 4:13 AM EDT Narrative [facility] - 08/30/2025 10:54 AM EDT HA1C Interpretive Data: Diagnosis of Diabetes: Diabetic > or = 6.5% Pre-diabetic 5.7 to 6.4% Non-diabetic < or = 5.6% Glycemic Targets for Type I and Type II Diabetics: Non- Adults <7.0% Adults <6.0% Children and Adolescents <7.5% Source: [place] [employer]. Standards of medical care in diabetes,2017. Diabetes Care.2017:40 (suppl 1):S1-S135. us Sergey Stern MD LAB BLOOD ORDERABLES Final R esult [facility] [address] [place] [address] * (ABNORMAL) Lipid panel (08/30/2025 3:34 AM EDT) Cholesterol, Plasma 149 <200 mg/dL 08/30/2025 8:29 AM EDT [facility] Comment: Cholesterol Reference Range (age >17 years): Desirable <200 mg/dL Borderline 200 to 239 mg/dL Undesirable >239 mg/dL HDL 42(L) >=50 mg/dL 08/30/2025 8:29 AM EDT [facility] Comment: HDL Cholesterol Reference Ranges (age >17 years): Female, acceptable > or = 50 mg/dL Male, acceptable > or = 40 mg/dL Triglycerides, Plasma 172(H) <150 mg/dL 08/30/2025 8:29 AM EDT [facility] Comment: Triglyceride Reference Range (age >17 years): Desirable: <150 mg/dL Borderline high: 150 to 199 mg/dL High: 200 to 499 mg/dL Very high: >499 mg/dL Increased risk of pancreatitis: >1000 mg/dL Cholesterol/HDL Ratio 4 08/30/2025 8:29 AM EDT [facility] LDL, Calculated 78 <100 mg/dL 8:29 AM EDT [facility] Comment: LDL Cholesterol Reference Range (age [...] 12 hours? Unknown 08/30/2025 8:29 AM EDT [facility] Blood Venous blood specimen / Unknown Venipuncture / Unknown 08/30/2025 3:34 AM EDT 08/30/2025 4:11 AM EDT us Dora Villegas MD LAB BLOOD ORDERABLES Final Result [facility] [address] [place] [address] * XR Abdomen 1 View (08/29/2025 6:50 [...] IMG XR PROCEDURES Final Resu lt * GA CRITICAL CARE, E/M 30-74 MINUTES (08/29/2025 12:00 [...] and obtaining history from patient or surrogate us Claudia Morales APRN IN CLINIC/BEDSIDE ORDERABL ES [...] Cerebral Angiogram COMPARISON:CTA head and neck 08/27/2025 TRASH COLLECTOR: Jw Ramirez MD [employer] CHEMI[employer]Y TE[employer]ER: Rylee Gupta MD FLUORO TIME: 16 minutes FLUORO DOSE: 701 mGy Contrast: Omnipaque [id number] cc Anesthesia: General Anesthesia Medications: Versed, Fentanyl, [...] exchanged over a wire for a 5 Cypriot slender sheath. The sheath was connected to [...] of dissection, pseudoaneurysm, or fistula. A 5 Cypriot Sheets 2 catheter was advanced over a 0.035 Angle-Lyburn guidewire through the sheath and into the [...] Cerebral Angiogram COMPARISON:CTA head and neck 08/27/2025 TRASH COLLECTOR: Jw Ramirez MD [employer] CHEMI[employer]Y TEACHER: Rylee Gupta MD FLUORO TIME: 16 minutes FLUORO DOSE: 701 mGy Contrast: Omnipaque [id number] cc Anesthesia: General Anesthesia Medications: Versed, Fentanyl, [...] exchanged over a wire for a 5 Cypriot slender sheath.The sheath was connected to a [...] evidence of dissection,pseudoaneurysm, or fistula. A 5 Cypriot Sheets 2 catheter was advanced over a [...] MD IMG IR PROCEDURES Final Result * GA AN ELECTIVE ENDOTRACHEAL AIRWAY, PB ANESTHESIA PLACEHOLDER (08/29/2025 11:09 AM EDT) Narrative Remi Urrutia CRNA - 08/29/2025 11:09 AM EDT Remi Urrutia CRNA 08/29/2025 11:20 AM Airway Date/Time: 08/29/2025 11:09 AM Reason: elective Airway not difficult General Information and Staff Patient location during procedure: [place] TELECOM NETWORK MANAGER: Remi Urrutia CRNA Performed: VICKIE Patient Condition [...] Additional Comments Atraumatic. No change to dentition. Vipul Holt MD ANESTHESIA ORDERABLES F inal Result * CT Chest wo IV Contrast (08/28/2025 [...] on 08/28/2025 1:11 PM us Claudia Morales RAILROAD WATCHMAN IMG CT PROCEDURES Final Re sult * Anti Xa Level Low Molecular Weight (08/28/2025 4:57 AM EDT) Anti Xa Level Low Molecular Weight Heparin <0.11 <2.00 IU/mL LAB COAGULATION METHOD 08/28/2025 5:56 AM EDT [facility] Blood Venous blood specimen / Unknown Venipuncture / Unknown 08/28/2025 4:57 AM EDT 08/28/2025 5:03 AM EDT Narrative [facility] - 08/28/2025 5:56 AM EDT Therapeutic Range: LMWH enoxaparin 1mg/kg/dose, 12hrs - peak (3-5 hours after dose): 0.5 - 1.0 IU/mL LMWH enoxaparin 1.5mg/kg/dose, 24hrs - peak (3-5 hours after dose): 1.0 - 2.0 IU/mL LMWH enoxaparin prophylaxis: Not established Sergey Stern MD LAB BLOOD ORDERABLES Final R esult [facility] [address] [place] [address] * (ABNORMAL) Blood gas panel, arterial (08/28/2025 4:53 AM EDT) pH, Arterial 7.43 7.35 - 7.45 LAB HEMATOLOGY METHOD 08/28/2025 5:05 AM EDT [facility] pCO2, Arterial 38 35 - 48 mmHg LAB HEMATOLOGY METHOD 08/28/2025 5:05 AM EDT [facility] pO2, Arterial 88 83 - 108 mmHg LAB HEMATOLOGY METHOD 08/28/2025 5:05 AM EDT [facility] SO2, Measured, Arterial 97 94 - 98 % LAB HEMATOLOGY METHOD 08/28/2025 5:05 AM EDT [facility] Base Excess, Arterial 1.1 -2.0 - 3.0 mmol/L LAB HEMATOLOGY METHOD 08/28/2025 5:05 AM EDT [facility] Bicarbonate, Calculated, Arterial 25 22 - 26 mmol/L LAB HEMATOLOGY METHOD 08/28/2025 5:05 AM EDT [facility] Hematocrit, Whole Blood 44.1 34.0 - 45.0 % LAB HEMATOLOGY METHOD 08/28/2025 5:05 AM EDT [facility] Sodium, Whole Blood 140 136 - 145 mmol/L LAB HEMATOLOGY METHOD 08/28/2025 5:05 AM EDT [facility] Potassium, Whole Blood 3.2(L) 3.6 - 4.9 mmol/L LAB HEMATOLOGY METHOD 08/28/2025 5:05 AM EDT [facility] Chloride, Whole Blood 105 97 - 107 mmol/L LAB HEMATOLOGY METHOD 08/28/2025 5:05 AM EDT [facility] Glucose, Whole Blood 162(H) 74 - 99 mg/dL LAB HEMATOLOGY METHOD 08/28/2025 5:05 AM EDT [facility] Ionized Calcium, Whole Blood 4.5(L) 4.6 - 5.1 mg/dL LAB HEMATOLOGY METHOD 08/28/2025 5:05 AM EDT [facility] Lactate, Arterial, Whole Blood 1.0 0.5 - 1.6 mmol/L LAB HEMATOLOGY METHOD 08/28/2025 5:05 AM EDT [facility] Blood Arterial blood specimen / Unknown Arterial Puncture / Unknown 08/28/2025 4:53 AM EDT 08/28/2025 5:03 AM EDT us Bridgett Colindres [employer]RO[employer] WATCHMAN, DNP LAB BLOOD ORDERABLES Leia l Result [facility] [address] [place] [address] * CT Cervical Spine wo IV Contrast [...] David Tomlin MD on 08/28/2025 6:03 PM Narrative 08/28/2025 [...] on 08/28/2025 6:03 PM us Bridgett Colindres RAILROAD WATCHMAN, DNP IMG CT PROCEDURES Final R esult * (ABNORMAL) Troponin T, High Sensitivity, 2 Hour, Plasma (08/28/2025 3:20 AM EDT) Only the most recent of2 resultswithin the time period is included. Troponin T, High Sensitivity, 2 Hour 90(H) <14 ng/L 08/28/2025 3:53 AM EDT [facility] Troponin Delta 13(H) <10 ng/L 08/28/2025 3:53 AM EDT [facility] Troponin Delta Interpretation Significant 08/28/2025 3:53 AM EDT [facility] Comment:Significant change i n Troponin observed [...] AM EDT 08/28/2025 3:27 AM EDT Shahida Parry DO LAB BLOOD ORDERABLES Final Re sult [facility] [address] [place] [address] * (ABNORMAL) Ionized calcium, whole blood (08/28/2025 3:20 AM EDT) Ionized Calcium, Whole Blood 4.2(L) 4.6 - 5.1 mg/dL LAB HEMATOLOGY METHOD 08/28/2025 3:28 AM EDT [facility] Blood Venous blood specimen / Unknown Venipuncture / Unknown 08/28/2025 3:20 AM EDT 08/28/2025 3:27 AM EDT Bridgett Colindres APRN, DNP LAB BLOOD ORDERABLES Leia l Result [facility] [address] [place] [address] * Araceli auris Surveillance by PCR (08/28/2025 3:13 AM EDT) Araceli auris PCR Result Not Detected Not Detected 08/29/2025 7:57 AM EDT [facility] Swab (Axilla and Groin) Non-blood Collection / Unknown 08/28/2025 3:13 AM EDT 08/28/2025 3:58 AM EDT [facility] - 08/29/2025 7:57 AM EDT This PCR assay was developed and its performance characteristics determined by [facility] as appropriate for clinical purposes. This assay has not been cleared or approved by the FDA, but is performed in a CLIA regulated laboratory that is qualified to perform high-complexity testing. us Sergey [facility] - GENERAL O [place]DERAB[place] [address] * Multi Drug Resistance Test (08/28/2025 3:13 AM EDT) Culture No growth at day 1 08/29/2025 5:41 AM EDT [facility] Swab (Nares and Elda Rectal) Non-blood Collection / Unknown 08/28/2025 3:13 AM EDT 08/28/2025 3:58 AM EDT [facility] - 08/29/2025 5:41 AM EDT This test was developed and its performance characteristics determined by the [facility]. Although the media is FDA-approved, it is not FDA-approved for all specimen types submitted. The FDA has determined that such clearance or approval is not necessary. This test is used for surveillance purposes. It should not be regarded as investigational or for research. The [facility] is certified under the Clinical Laboratory Improvement Amendments of 1988 (CLIA-88) as qualified to perform high complexity clinical laboratory testing. us Sergey Stern MD LAB MICROBIOLOGY - GENERAL O RDERABLES Final Result [facility] [address] [place] [address] * XR Chest 1 View (08/28/2025 12:44 [...] Julio Barrera MD on 08/28/2025 10:03 AM us Sergey Stern MD IMG XR PROCEDURES Final Resu lt * [facility], E/M 30-74 MINUTES (08/28/2025 12:12 [...] * ECG Adult (08/28/2025 12:03 AM EDT) Only the most recent of2 resultswithin the time period is included. EKG DIAGNOSIS CLASS Abnormal MUSE ECG Ventricular Rate 115 BPM MUSE ECG Atrial Rate 115 BPM MUSE ECG GA Interval 132 ms MUSE ECG QRSD Interval 76 ms MUSE ECG QT Interval 362 ms MUSE ECG QTC Interval 500 ms MUSE ECG P [place] 66 degrees MUSE ECG R [place] 58 degrees MUSE ECG T Wave [place] 60 degrees MUSE ECG Diagnosis Poor data quality, interpretation may be adversely affected MUSE ECG Diagnosis MUSE ECG Diagnosis Sinus tachycardia MUSE ECG Diagnosis Nonspecific ST abnormality MUSE ECG Diagnosis Prolonged QT MUSE ECG Diagnosis Abnormal ECG MUSE ECG Diagnosis MUSE ECG Diagnosis Confirmed by Carter Pearce ([id number]) on 08/28/2025 5:33:14 PM MUSE ECG 08/28/2025 12:0 3 AM EDT 08/28/2025 5:33 PM EDT Sergey Stern MD ECG ORDERABLES Final Result MUSE ECG * (ABNORMAL) Troponin now and 120 min (08/27/2025 11:11 PM EDT) Troponin T, High Sensitivity, 0 Hour 103(H) <14 ng/L 08/27/2025 11:37 PM EDT [facility] Blood Venous blood specimen / Unknown Venipuncture / Unknown 08/27/2025 11:11 PM EDT 08/27/2025 11:16 PM EDT [employer] DO LAB BLOOD ORDERABLES Final Re sult Performing Organization Address [facility]/ZIP Co de Phone Number [facility] [address] [place] [address] * Anti Xa Level Unfractionated Heparin (08/27/2025 11:11 PM EDT) Anti Xa Level Unfractionated Heparin <0.11 <1.00 IU/mL 08/27/2025 11:31 PM EDT [facility] Blood Arterial blood specimen / Unknown Arterial Puncture / Unknown 08/27/2025 11:11 PM EDT 08/27/2025 11:16 PM EDT Narrative [facility] - 08/27/2025 11:31 PM EDT Therapeutic Range: UFH Full Dose and ACS/MS protocols*: 0.30 - 0.70 IU/mL UFH Low Dose protocol*: 0.25 - 0.50 IU/mL UFH prophylaxis: Not established [employer] LAB BLOOD ORDERABLES Final Re sult Performing Organization Address [facility] [place] [address] * APTT (PTT) (08/27/2025 9:11 PM EDT) aPTT 28 25 - 35 sec 08/27/2025 9:36 PM EDT [facility] Blood Venous blood specimen / Unknown Venipuncture / Unknown 08/27/2025 9:11 PM EDT 08/27/2025 9:21 PM EDT [employer] LAB BLOOD ORDERABLES Final Re sult Performing Organization Address City/[facility]/ZIP Co de Phone Number [facility] [address] [place] [address] * Prothrombin Time (08/27/2025 9:11 PM EDT) Prothrombin Time 13.0 12.0 - 14.3 sec 08/27/2025 9:35 PM EDT [facility] INR 1.0 0.9 - 1.1 08/27/2025 9:35 PM EDT [facility] Blood Venous blood specimen / Unknown Venipuncture / Unknown 08/27/2025 9:11 PM EDT 08/27/2025 9:21 PM EDT Narrative [facility] - 08/27/2025 9:35 PM EDT OPTIMAL INR RANGES FOR PATIENT ON ORAL ANTICOAGULANT THERAPY Prevention of venous thromboembolism INR 2.0 to 3.0 In patients with heart disease: Atrial fibrillation INR 2.0 to 3.0 Valvular heart disease INR 2.0 to 3.0 Tissue heart valves INR 2.0 to 3.0 Mechanical prosthetic valves INR 2.5 to 3.5 Prevention of recurrent MS INR 2.5 to 3.5 [employer] LAB BLOOD ORDERABLES Final Re sult Performing Organization Address [facility] Co de Phone Number [facility] [address] [place] [address] * Test Qualitative Plasma (08/27/2025 9:11 PM EDT) Test Negative Negative 08/27/2025 9:49 PM EDT [facility] Blood Venous blood specimen / Unknown Venipuncture / Unknown 08/27/2025 9:11 PM EDT 08/27/2025 9:21 PM EDT Narrative [facility] - 08/27/2025 9:49 PM EDT Reference Range: Males and non- females: Negative. us Shahida L gDine DO LAB BLOOD ORDERABLES Final Re sult Performing Organization Address City/[facility]/ZIP Co de Phone Number [facility] [address] [place] [address] * CT Angio Neck (08/27/2025 9:06 PM [...] Total DLP (Dose-Length Product): 2144.63 mGy.cm (accession [id number]), 2144.63 mGy.cm (accession [id number]), 2144.63 mGy.cm (accession [id number]). Please note: The reported value represents the [...] Total DLP (Dose-Length Product): 2144.63 mGy.cm (accession [id number]),2144.63 mGy.cm (accession [id number]), 2144.63 mGy.cm (accession [id number]).Please note: The reported value represents the total [...] MD on 08/27/2025 9:31 PM us Shahida Parry IMG CT PROCEDURES Final Resul t * CT Angio Head (08/27/2025 9:06 PM EDT) Anatomical Region Laterality Modality [place] [facility] [place] Computed Tomogr aphy Impressions 08/27/2025 [...] Total DLP (Dose-Length Product): 2144.63 mGy.cm (accession [id number]), 2144.63 mGy.cm (accession [id number]), 2144.63 mGy.cm (accession [id number]). Please note: The reported value represents the [...] Total DLP (Dose-Length Product): 2144.63 mGy.cm (accession [id number]),2144.63 mGy.cm (accession [id number]), 2144.63 mGy.cm (accession [id number]).Please note: The reported value represents the total [...] MD on 08/27/2025 9:31 PM us Shahida Parry DO IMG CT PROCEDURES Final Resul t [...] 08/27/2025 8:53 PM EDT [facility] [employer] ID Kriss Arango 08/27/2025 8:53 PM EDT [facility] Device ID [id number] 08/27/2025 8:53 PM EDT [facility] Specimen Type POC Capillary 08/27/2025 8:53 PM EDT [facility] Blood Capillary blood specimen / Unknown 08/27/2025 8:52 PM EDT 08/27/2025 8:53 PM EDT us Generic Provider Poct LAB POINT OF CARE TEST DOCKED DEVICE UNSOLICITED RESULTS Final Result [facility] [address] [place] [address] * GA INSERT CATH,ART,PERCUT,SHORTTERM, HC INSERT CATH,ART,PERCUT,SHORTTERM (08/27/2025 8:46 PM EDT) Narrative Shahida Parry DO - 08/27/2025 8:46 PM EDT Shahida Parry DO 08/28/2025 3:09 PM Arterial Line (Insert) Performed by: Chasity Caceres DO Authorized by: Shahida Parry DO Consent: Consent obtained: Verbal Consent given by: Patient Risks, benefits, and alternatives were discussed: yes Risks discussed: Bleeding, infection and ischemia [place] protocol: Patient identity confirmed: Verbally with patient Attending Supervision?: no Indications: Indications: hemodynamic monitoring and multiple ABGs Sedation: Sedation type: None Procedure details: Location: R radial Needle gauge: 20 G Number of attempts: 1 Transducer: waveform confirmed Post-procedure details: Post-procedure: Sterile dressing applied CMS: Normal Procedure completion: Tolerated Shahida Parry DO IV THERAPY ORDERABLES Final R esult * Cytology (08/03/2002 12:00 AM EDT) 08/03/2002 08/04/2002 12: 59 PM EDT Narrative [facility] - 08/10/2002 10:53 AM EDT [facility] MR #: [id number] [facility] ANIYAH BECKER [place], [place] [address] 1965 (Age: 37) FW Collect Date: 08/03/2002 00:00 Receipt Date: 08/04/2002 12:59 Page 1 DEPARTMENT OF PATHOLOGY AND LABORATORY MEDICINE CYTOPATHOLOGY REPORT Email: [email or web address] ATTENDING MD/Practitioner: Barb Lennon MD Service: [facility] Location: [facility] Reported: 08/10/2002 10:53 Collected: 08/03/2002 00:00 INTERPRETATION [...] results is suggested (please call Microbiology at [phone] for results). CLINICAL INFORMATION: Menstrual History: Postmenopausal Date of Last Menstrual Period: {Not Provided} Other Clinical Conditions: Tobacco user SPECIMEN DESCRIPTION: A: THIN PREP (CERVICAL/VAGINAL) THIN PREP PROCESS CELLULAR ENHANCEMENT ICD: V76.2 CERVIX, SPECIAL SCREENING FOR MALIGNANT NEOPLASM F: A; THIN SCRN 17304 SNOMED CODES: A; [id number] [id number] [id number] In cases where a pathologist has signed out the report, the service has been rendered in part by a resident. The signing pathologist has performed and is responsible for the reported pathologic evaluation. Mariann Lennon MD LAB PATHOLOGY ORDERABLES Formerly [facility] Result Performing Organization Address City/State/[facility] Co de Phone Number [facility] from Last 3 Months or Most Recently Relevant to Health Maintenance Insurance [employer] MEDICARE [place]ICAID-[place] Advance Directives * Full Code (Latest Code Status on File) Date Activated Date Inactivated Comments 08/29/2025 12:05 PM 09/09/2025 4:56 PM Question Answer Comments Patient has decision-making capacity? Yes Care Teams Net Fisher Relationship Specialty Start Date End Date System, Provider Not In, [address] [place] [address] PCP - General Family Medicine 08/27/25 Jb Wayne [place] [id number] 08/27/25 Myrna Wagoner, SITE CONTROLLER [employer]ED [place] [address] None TCM Nurse 09/29/25 Ricardo Wayne Community Health Worker 10/06/25
--- OUTSIDE RECORDS SUMMARY | 2025-10-23 09:36 | XMS_ITS | Encounter Summary ---
Author Organization [facility] Address [address] [place] [address] Care Team Providers Care Stem Roller Or Crusher Operator Name Role Phone System, Provider Not In MD Primary Care Provider Unavailable Jb Wayne Unavailable [phone] Myrna Wagoner LPN Unavailable Unavailable Ricardo Wayne Unavailable Unavailable Reason for Visit * Reason Comments TCM Encounter Details Date Type Department Care Team (Late st Contact Info) Description 10/06/2025 Patient Outreach POPULATION HEALTH [address] [place] [address] Myrna Wagoner LPN [employer] [place] [address] None TCM Social History Tobacco Use Types [...] answer 08/30/2025 How often do you attend [facility] or anglican services? Patient unable to answer 08/30/2025 Do you belong to any clubs o r organizations such as judaism groups, unions, fraThomas-Krenn or athletic groups, or school groups? Patient [...] any time in the past 12 m [facility], were you homeless or living in a group home (including now)? No 10/04/2025 [facility] Utilities Answer Date Recorded In [...] Miscellaneous Notes * Progress Notes - Myrna Wagoner LPN - 10/06/2025 10:31 AM EST 10/06/2025 TCM Follow-up Call Patient reached: Yes Outcome: ROSA nurse spoke with patient and granddaughter/Lindy on speaker phone. ROSA appointment changed to TH, referral placed for CHW to reach out with possible resources for transportation and advised to reach out to medical insurance. Granddaughter asked about HH referral and establishing care at [facility], will discuss with Dr. Chambers. Granddaughter would like all calls to be directed to her, discussed PTC not on file and grandmother would have to give permission. Action: N/A documented in this encounter Plan of Treatment Upcoming Encounters Date Type Department Care Team (Late st Contact Info) Description 11/29/2025 10:40 AM EST Office Visit [facility] [place] [facility] [address] [place] [address] Julia Martinez PA [address] [place] [address] 12/09/2025 11:20 AM EST Office Visit [place] [facility] [address] [place] [address] Hector Fu APRN [address] [place] [address] 12/14/2025 3:00 PM EST [facility] Visit [facility] [address] [place] [phone] Beto Hair, [address] [place] [address] documented as of this encounter Visit Diagnoses Not on filedocumented in this encounter Additional Health Concerns Assessment Noted Time A Body Mass Index follow-up plan has been documented for the patient 09/09/2025 1:57 PM EST documented as of this encounter Care Teams Stem Roller Or Crusher Operator Relationship Specialty Start Date End Date System, Provider Not In, [address] [place] [address] PCP - General Family Medicine 08/27/25 Jb Wayne [facility] [address] [place], [place] [id number] 08/27/25 Myrna Wagoner LPN [employer] [place] [address] None TCM Nurse 09/29/25 Ricardo Wayne Community Health Worker 10/06/25 documented as of this encounter
--- OUTSIDE RECORDS SUMMARY | 2025-10-23 09:36 | XMS_ITS | Encounter Summary ---
Author Organization [facility] Address [address] [place] [address] Care Team Providers Care Relief Manager Name Role Phone System, Provider Not In MD Primary Care Provider Unavailable Jb Wayne Unavailable [phone] Myrna Wagoner LPN Unavailable Unavailable Reason for Visit * Reason Comments TCM Encounter Details Date Type Department Care Team (Late st Contact Info) Description 10/04/2025 Patient Outreach POPULATION HEALTH [address] [place] [address] Myrna Wagoner LPN [employer] [place] [address] None TCM Social History Tobacco Use Types [...] answer 08/30/2025 How often do you attend [facility] or congregational services? Patient unable to answer 08/30/2025 Do you belong to any clubs o r organizations such as orthodoxy groups, unions, fraternal or athletic groups, or [...] Patient unable to answer 08/30/2025 [facility] of Occupat ional Health - Occupational Stress [...] any time in the past 12 m [facility], were you homeless or living in a senior living (including now)? No 10/04/2025 [facility] Utilities Answer Date Recorded In the [...] Progress Notes - Myrna Wagoner LPN - 10/04/2025 12:21 PM EST Admit Date: 08/27/2025 Discharge Date: 09/09/2025 Hospital Service: Neurology Discharge Diagnosis: Acute intra-cranial hemorrhage 10/04/2025 TCM call # 1 Patient Reached: Yes Outcome: Discharged to [facility], discharged on 10/01/2025. ROSA nurse reached out to patient on mobile number listed. She is currently in a meeting and unable to talk. Provided ROSA appointment details; patient is currently in [place] and unsure of appointment, patientagreed to a return call tomorrow morning to discuss appointment. Action: N/A Medication changes: N/A ROSA appointment: 10/05/2025 at 2:[address] Chambers. Items to address at ROSA: N/A documented in this encounter Plan of Treatment Upcoming Encounters Date Type Department Care Team (Late st Contact Info) Description 11/29/2025 10:40 AM EST Office Visit [facility] [place] [facility] [address] [place] [address] Julia Martinez PA [address] [place] [address] 12/09/2025 11:20 AM EST Office Visit [place] [facility] [address] [place] [address] Hector Fu APRN [address] [place] [address] 12/14/2025 3:00 PM EST Office Visit [facility] [address] [place] [address] Beto Hair, [address] [place] [address] documented as of this encounter Visit Diagnoses Not on filedocumented in this encounter Additional Health Concerns Assessment Noted Time A Body Mass Index follow-up plan has been documented for the patient 09/09/2025 1:57 PM EST documented as of this encounter Care Teams Relief Manager Relationship Specialty Start Date End Date System, Provider Not In, [address] [place] [address] PCP - General Family Medicine 08/27/25 Jb Wayne [address] [place] [address] 08/27/25 Myrna Wagoner LPN [employer] [place] [address] None TCM Nurse 09/29/25 documented as of this encounter
--- OUTSIDE RECORDS SUMMARY | 2025-10-23 09:36 | XMS_ITS | Referral Summary ---
Author Organization [employer] ([place], [place], [place], [place], [place]) Address [address] [place] [address] Care Team Providers Care Aesthetics Instructor Name Role Phone [facility], Provider Not In The System Primary Care Provider Unavailable Phillip Amanda MD Unavailable Encounters Date Type Department Care Team Description 09/16/2025 Lab Requisition [facility] [address] [place] [address] Jas Wayne MD from Last 3 Months Allergies Active Allergy Reactions Criticality Noted Date [...] Date Rey rded Speak language other than Qatari at home Not on file 03/19/2024 Want [...] EDT Plan of Treatment Not on file Procedures Procedure Name Priority Date/Time Associated Diagnosis Comments URINALYSIS, REFLEX MICROSCOPIC AND CULTURE IF INDICATED Routine 09/16/2025 12:05 PM EST from Last 3 Months Results * Urinalysis, Reflex Microscopic and Culture If Indicated (09/16/2025 12:05 PM EST) Color, UA Light Yellow 09/16/2025 1:44 PM EST [facility] Clarity, UA Clear Clear 09/16/2025 1:44 PM EST [facility] Specific [place], UA 1.016 1.005 - 1.030 09/16/2025 1:44 PM EST [facility] pH, UA 6.0 6.0 - 8.0 09/16/2025 1:44 PM EST [facility] Leukocytes, UA Negative Negative 09/16/2025 1:44 PM EST [facility] Nitrite, UA Negative Negative 09/16/2025 1:44 PM EST [facility] Protein, UA Negative Negative 09/16/2025 1:44 PM EST [facility] Glucose, UA Normal Normal 09/16/2025 1:44 PM EST [facility] Ketones, UA Negative Negative 09/16/2025 1:44 PM EST [facility] Bilirubin, UA Negative Negative 09/16/2025 1:44 PM EST [facility] Blood, UA Negative Negative 09/16/2025 1:44 PM [facility] Urobilinogen, UA Normal Normal 09/16/2025 1:44 PM EST [facility] Specimen Source Urine, clean catch 09/16/2025 1:44 PM [facility] Urine URINE SPECIMEN COLLECTION, CLEAN CATCH / Unknown 09/16/2025 12:05 PM EST 09/16/2025 1:34 PM EST Jas Wayne MD URINE ORDERABLES Final Resul t [facility] [address] [phone] from Last 3 Months Insurance Care Teams Aesthetics Instructor Relationship Specialty Start Date End Date [facility], Provider Not In The System, [place] [address] PCP - General 04/09/24 Phillip Amanda MD [address] [facility] [address] [place] [id number] Cardiology 04/09/24
--- OUTSIDE RECORDS SUMMARY | 2025-10-23 09:36 | XMS_ITS | Encounter Summary ---
Author Organization [facility] Address [address] [place] [address] Care Team Providers Care Comparator Operator Name Role Phone System, Provider Not In MD Primary Care Provider Unavailable Jb Wayne Unavailable [phone] Myrna Wagoner LPN Unavailable Unavailable Reason for Visit * Reason Comments TCM Encounter Details Date Type Department Care Team (Late st Contact Info) Description 10/05/2025 Patient Outreach POPULATION HEALTH [address] [place] [address] Myrna Wagoner LPN [employer] [place] [address] None TCM Social History Tobacco Use Types [...] you attend [facility] or hinduism services? Patient unable to answer 08/30/2025 Do you belong to any clubs o r organizations such as baptist groups, unions, fraternal or athletic groups, or [...] and heating? Patient unable to answer 08/30/2025 [facility] of Occupat ional Health - Occupational Stress [...] any time in the past 12 m [facility], were you homeless or living in a care home (including now)? No 10/04/2025 [facility] Utilities Answer Date Recorded In [...] Progress Notes - Myrna Wagoner LPN - 10/05/2025 10:15 AM EST Admit Date: 08/27/2025 Discharge Date: 09/09/2025 Hospital Service: Neurology Discharge Diagnosis: Acute intra-cranial hemorrhage 10/05/2025 TCM call # 2 Patient Reached: Yes Outcome: Discharged to [facility], discharged on 10/01/2025. ROSA nurse reached out to patient on mobile number listed. Overall, she is doing worse. Patient reported R sidedweakness and fall x2 since discharge. She did not seek medication attention, responded, not hurt .Patients speech is clear, occasionally slow to respond to questions, answers appropriately. She denied ALDANA or change in vision. Patient has a w/c for ambulation, assist x1 prn with ADLs, eating and drinking adequately. [facility] HH and no home oxygen. She is currently living with her granddaughter, 2nd floor apartment at [address] [place] [address], [place] [address]. Patient is 5'8 and 151 lbs. She received a copy of her discharge paperwork from [facility] and [facility], reviewed post discharge instruction from . Kathe is active, aware of upcoming appointments. SDOH assessment flagged red for transportation, patient willing to speak with CHW for possible resources. She has reached out to [employer] regarding meals and transportation, awaiting return call. Patient is unable to reconcile medication, will bring list to ROSA appointment for reconciliation. Rescheduled ROSA appointment, patient is aware of appointment details. Action: Referral to CHW for possible resources with transportation and rescheduled ROSA appointment. Medication changes: N/A ROSA appointment: 10/15/2025 at 2:[address] Chambers. Items to address at ROSA: N/A documented in this encounter Plan of Treatment Upcoming Encounters Date Type Department Care Team (Late st Contact Info) Description 11/29/2025 10:40 AM EST Office Visit [facility] [place] [facility] [address] [place] [address] Julia Martinez PA [address] [place] [address] 12/09/2025 11:20 AM EST Office Visit [place] [facility] [address] [place] [address] Hector Fu APRN [address] [place] [address] 12/14/2025 3:00 PM EST Office Visit [facility] [address] [place] [address] Beto Hair, DO [address] [facility] [address] [place] [address] documented as of this encounter Visit Diagnoses Not on filedocumented in this encounter Additional Health Concerns Assessment Noted Time A Body Mass Index follow-up plan has been documented for the patient 09/09/2025 1:57 PM EST documented as of this encounter Care Teams Comparator Operator Relationship Specialty Start Date End Date System, Provider Not In, [place] [address] PCP - General Family Medicine 08/27/25 Jb Wayne [facility] [address] [place], [place] [phone] 08/27/25 Myrna Wagoner LPN [employer] [place] [address] None TCM Nurse 09/29/25 documented as of this encounter
--- OUTSIDE RECORDS SUMMARY | 2025-10-23 09:36 | XMS_ITS | Encounter Summary ---
Author Organization [facility] Address [address] [place] [address] Care Team Providers Care Marble Rubber Name Role Phone System, Provider Not In MD Primary Care Provider Unavailable Jb Wayne Unavailable [phone] Myrna Wagoner LPN Unavailable Unavailable Ricardo Wayne Unavailable Unavailable Reason for Visit * Reason Comments Chw/[facility] Encounter Details Date Type Department Care Team (Late st Contact Info) Description 10/13/2025 Patient Outreach POPULATION HEALTH [address], [address] [place] [address] Ricardo Wayne Chw/[facility] Social History [...] answer 08/30/2025 How often do you attend [facility] or mandaen services? Patient unable to answer 08/30/2025 Do you belong to any clubs o r organizations such as episcopalian groups, unions, fraternal or athletic groups, or [...] and heating? Patient unable to answer 08/30/2025 [facility] of Occupat ional Health - Occupational [...] any time in the past 12 m [facility], were you homeless or living in a group home (including now)? No 10/04/2025 [facility] Utilities Answer Date Recorded In [...] * Progress Notes - Ricardo Wayne - 10/13/2025 2:55 PM EST CHW Follow-up Encounter Note 10/13/2025 Pt called CHW outside of office hours last night. CHW returned pt's call today. Pt informed them that they have renewed their lease, and that they are allowed to break the lease early due to medical concerns. CHW has been looking into housing authorities, and asked if pt would be alright with [place]. Pt informed CHW that [place] would be a good option because their grand daughter lives there and can help them. CHW asked if they would like to call and ask about the waitlist, or if they would like CHW to call on their behald. Pt requested CHW call on their behalf. Update: CHW has called the [facility]. They have an open waitlist and emailed CHWthe application. CHW called pt to inform them of this. CHW offered to drop off the application and a list of required documentation, pt stated they were concerned because they are right handed and their entire right side is difficult to move. Pt can sign things, but can't fill out documents for long periods of time. CHW asked if they would be comfortable with their grand daughter sitting down andfilling out the application with them, and pt agreed. CHW offered to bring them the application andlist of requried documentation, then bring it to the office in [place] when it is completed, as pt has limited transportation. Pt thanked CHW and agreed, When asked, pt had no times they would prefer, CHW offered to drop off the application at 11 a.m. tomorrow, . Pt agreed. CHW will reach out to pt to confirm the time before going to the office to print application. CHW will schedule a HV for tomorrow, 10/13, at 11 a.m. documented in this encounter Plan of Treatment Upcoming Encounters Date Type Department Care Team (Late st Contact Info) Description 11/29/2025 10:40 AM EST Office Visit [facility] [address] [place] [address] Julia Martinez PA [address] [place] [address] 12/09/2025 11:20 AM EST Office Visit [place] [facility] [address], [address] [place] [address] Hector Fu, NILDA [address] [place] [address] 12/14/2025 3:00 PM EST Office Visit [facility] [address] [place] [address] Beto Hair DO [address] [place] [address] documented as of this encounter Visit Diagnoses Not on filedocumented in this encounter Additional Health Concerns Assessment Noted Time A Body Mass Index follow-up plan has been documented for the patient 09/09/2025 1:57 PM EST documented as of this encounter Care Teams Marble Rubber Relationship Specialty Start Date End Date System, Provider Not In, [address] [place] [address] PCP - General Family Medicine 08/27/25 Jb Wayne [facility] [address] [place] [address] 08/27/25 Myrna Wagoner LPN [employer] [place] [address] None TCM Nurse 09/29/25 Ricardo Wayne Community Health Worker 10/06/25 documented as of this encounter
--- OUTSIDE RECORDS SUMMARY | 2025-10-23 09:36 | XMS_ITS | Encounter Summary ---
Author Organization [facility] Address [address] [place] [address] Care Team Providers Care Stamping Mill Tender Name Role Phone System, Provider Not In MD Primary Care Provider Unavailable Jb Wayne Unavailable [phone] Myrna Wagoner LPN Unavailable Unavailable Ricardo Wayne Unavailable Unavailable Reason for Visit * Reason Comments Chw/[facility] Encounter Details Date Type Department Care Team (Late st Contact Info) Description 10/14/2025 Patient Outreach POPULATION HEALTH [address] [facility] [address], [address] [place] [address] Ricardo Wayne Chw/[facility] Social History [...] answer 08/30/2025 How often do you attend [facility] or episcopalian services? Patient unable to answer 08/30/2025 Do [...] and heating? Patient unable to answer 08/30/2025 [facility] of Occupat ional Health - Occupational [...] any time in the past 12 m [facility], were you homeless or living in a chcf (including now)? No 10/04/2025 [facility] Utilities Answer Date Recorded In the past [...] * Progress Notes - Ricardo Wayne - 10/14/2025 9:07 AM EST CHW Follow-up Encounter Note 10/14/2025 CHW reached out to pt to confirm 11 a.m would still be a good time to drop off housing application.Pt said 11 a.m was still a good time. Pt was unsure about appt tomorrow, 10/15, being in person or TH. CHW looked at appt and saw it was switched to TH. CHW informed pt that their insurance may be able to cover TH, despite being Medicare, and they can always ask about that option when schedule appts. CHW will go to the office and print the housing application, Update: CHW went to the office and printed the application, as well as a checklist detailing required documents and contact information for the [employer] Out Worker Stamping. When dropping off application, ptinformed CHW that their insurance doesn't support more therapy opportunities. CHW offered to explore their options, as well as look into their insurance, and pt agreed. Pt's grand daughter was on their way to assist pt in filling out the application. CHW informed pt to reach out when they are finished, so CHW can coordinate a time to drop it off at the [facility]. If not heard back, CHW will reach out at a later date. documented in this encounter Plan of Treatment Upcoming Encounters Date Type Department Care Team (Late st Contact Info) Description 11/29/2025 10:40 AM EST Office Visit [facility] [place] [facility] [address] [place] [address] Julia Martinez PA [address] [place] [address] 12/09/2025 11:20 AM EST Office Visit [place] [facility] [address] [place] [address] Hector Fu APRN [address] [place] [address] 12/14/2025 3:00 PM EST Office Visit [facility] [address] [place] [address] Beto Hair DO [address] [place] [address] documented as of this encounter Visit Diagnoses Not on filedocumented in this encounter Additional Health Concerns Assessment Noted Time A Body Mass Index follow-up plan has been documented for the patient 09/09/2025 1:57 PM EST documented as of this encounter Care Teams Stamping Mill Tender Relationship Specialty Start Date End Date System, Provider Not In, [place] [address] PCP - General Family Medicine 08/27/25 Jb Wayne [address] [address] 08/27/25 Myrna Wagoner LPN VALUE-BASED [place] [address] None TCM Nurse 09/29/25 Ricardo Wayne Community Health Worker 10/06/25 documented as of this encounter
--- OUTSIDE RECORDS SUMMARY | 2025-10-23 09:37 | XMS_ITS | Encounter Summary ---
Author Organization [facility] Address [address] [place] [address] Care Team Providers Care Stores Assistant Name Role Phone System, Provider Not In MD Primary Care Provider Unavailable Jb Wayne Unavailable [phone] Encounter Details Date Type Department Care Team (Latest Contact Info) Description 08/28/2025 Travel Social History Tobacco Use Types Packs/Day Years Used Date Smoking Tobacco: Former Cigarettes 0 Q uit: 06/19/2025 Smokeless Tobacco: Never Alcohol Use Standard Drinks/Week Comments Never 0 (1 standard drink = 0.6 oz pur e alcohol) AUDIT-C Answer Date Recorded Q1: How often do you have a drink containing alcohol? Never 08/28/2025 Q2: How many drinks containi ng alcohol do you have on a typical day when you are drinking? Patient does not drink Q3: How often do you have si x or more drinks on one occasion? Never 08/28/2025 Comments No Sex and Gender Information Value Date Recorded Sex Assigned at Not on file Legal Sex Female 8:52 PM EDT Gender Identity Not on file Sexual Orientation Not on file documented as of this encounter Functional Status * Question Answer Date of Assessment Author Precautions Fall risk;Environmen anshu surveillance;Aspiration 08/28/2025 8:00 PM EDT Vale Milan * AUDIT-C Score Answer Date of Assessment Author 0 08/28/2025 6:22 AM EDT Rivera Salter RN * Question Answer Date of Assessment Author Q1: How often do you have a drink containing alcohol? Never 08/28/2025 6:22 AM EDT Analy Salter, RN Q2: How many drinks containing alcohol do you have on a typical day when you are drinking? Patient does not drink 08/28/2025 6:22 AM EDT Analy Salter RN Q3: How often do you have six or more drinks on one occasion? Never 08/28/2025 6:22 AM EDT Analy Salter RN * Question Answer Date of Assessment Author Precautions Fall risk;Environmen ansuh surveillance;Aspiration 08/28/2025 8:00 PM EDT Vale Milan * Calculated C-SSRS Risk Score (Lifetime/Recent) Answer Date of Assessment Author No Risk Indicated 08/28/2025 2:30 AM EDT Analy Salter RN * Question Answer Date of Assessment Author 1. Wish to be (Past 1 Month) No 025 2:30 AM EDT Analy Salter RN 2. Non-Specific Active Suici zaire Thoughts (Past 1 Month) No 08/28/2025 2:30 AM EDT Adriana Salter RN 6. Suicidal Behavior (Lifetime) No 2:30 AM EDT Analy Salter, RN documented as of this encounter Mental Status * Question Answer Entry Date Author Precautions Fall risk;Environmen anshu surveillance;Aspiration 08/28/2025 8:00 PM EDT Vale Milan documented in this encounter Plan of Treatment Upcoming Encounters Date Type Department Care Team (Late st Contact Info) Description 11/29/2025 10:40 AM EST Office Visit [facility] [facility] [address] [place] [address] Julia Martinez PA [address] [place] [address] 12/09/2025 11:20 AM EST Office Visit [place] [facility] [address] [place] [address] Hector Fu, REFUSE DRIVER [address] [place] [address] 12/14/2025 3:00 PM EST Office Visit [facility] [address] [place] [address] Beto Hair DO [address] [facility] [address] [place] [address] documented as of this encounter Visit Diagnoses Not on filedocumented in this encounter Additional Health Concerns Assessment Noted Time A Body Mass Index follow-up plan has been documented for the patient 09/09/2025 1:57 PM EST documented as of this encounter Care Teams Stores Assistant Relationship Specialty Start Date End Date System, Provider Not In, MD Ana Frias [address] PCP - General Family Medicine 08/27/[address] [facility] [address] [place] [address] 08/27/25 documented as of this encounter
--- OUTSIDE RECORDS SUMMARY | 2025-10-23 09:37 | XMS_ITS | Encounter Summary ---
Author Organization [facility] Address [address] [place] [address] Care Team Providers Care Professor Of Anthropology Name Role Phone System, Provider Not In MD Primary Care Provider Unavailable Jb Wayne Unavailable [phone] Encounter Details Date Type Department Care Team (Latest Contact Info) Description 08/30/2025 Travel Social History Tobacco Use Types Packs/Day [...] How often do you attend chur or sabianism services? Patient unable to answer 08/30/2025 Do you belong to any clubs o r organizations such as restorationism groups, unions, fraternal or athletic groups, or [...] and heating? Patient unable to answer 08/30/2025 [facility] of Occupat ional Health - [...] or living in a chcf (including now)? Patient unable to answer 08/30/2025 [facility] Utilities Answer Date Recorded In the [...] * Question Answer Date of Assessment Author Dereck Fall risk;[facility] surveillance 08/30/2025 11:00 PM EDT Kwesi Vences CNA * AUDIT-C Score Answer Date of Assessment Author -1 08/30/2025 6:59 AM EDT Christiano Hernandez RN * Question Answer Date of Assessment Author Q1: How often do you have a drink containing alcohol? Patient unable to answer 08/30/2025 6:59 AM Yovani Steel RN Q2: How many drinks containing alcohol do you have on a typical day when you are drinking? Patient unable to answer 08/30/2025 6:59 AM Yovani Steel RN Q3: How often do you have six or more drinks on one occasion? Patient unable to answer 08/30/2025 6:59 AM Yovani Steel RN * Question Answer Date of Assessment Author Precautions Fall risk;[facility] surveillance 08/30/2025 11:00 PM EDT Kwesi Vences CNA * Calculated C-SSRS Risk Score (Lifetime/Recent) Answer Date of Assessment Author No Risk Indicated 08/30/2025 4:00 PM EDT Carlos Mathur RN * Question Answer Date of Assessment Author 1. Wish to be (Past 1 Month) No 08/30/2025 4:00 PM EDT Carlos Lovell, SEDA 2. Non-Specific Active Suici zaire Thoughts (Past 1 Month) No 08/30/2025 4:00 PM EDT Shine Lovell, RN 6. Suicidal Behavior (Lifetime) No 4:00 PM EDT Carlos Lovell, RN documented as of this encounter Mental Status * Question Answer Entry Date Author Precautions Fall risk;[facility] surveillance 08/30/2025 11:00 PM EDT Kwesi Vences CNA documented in this encounter Plan of Treatment Upcoming Encounters Date Type Department Care Team (Late st Contact Info) Description 11/29/2025 10:40 AM EST Office Visit [facility] [place] [address] [place] [address] Julia Martinez PA [address] [place] [address] 12/09/2025 11:20 AM EST Office Visit [place] [facility] [address], [address] [place] [address] Hector Fu, NILDA [address] [place] [address] 12/14/2025 3:00 PM EST Office Visit [facility] [address] [place] [address] Beto Hair DO [address] [place] [address] documented as of this encounter Visit Diagnoses Not on filedocumented in this encounter Additional Health Concerns Assessment Noted Time A Body Mass Index follow-up plan has been documented for the patient 09/09/2025 1:57 PM EST documented as of this encounter Care Teams Professor Of Anthropology Relationship Specialty Start Date End Date System, Provider Not In, [place] [address] PCP - General Family Medicine 08/27/25 [place] [address] 08/27/25 documented as of this encounter
--- OUTSIDE RECORDS SUMMARY | 2025-10-23 09:37 | XMS_ITS | Encounter Summary ---
Author Organization [facility] Address [address] [place] [address] Care Team Providers Care Shank Scourer Name Role Phone System, Provider Not In MD Primary Care Provider Unavailable Jb Wayne Unavailable [phone] Encounter Details Date Type Department Care Team (Latest Contact Info) Description 08/27/2025 Travel Social History Tobacco Use Types Packs/Day Years Used Date Smoking Tobacco: Never Assessed AUDIT-C Answer Date Recorded Q1: How often do you have a drink containing alcohol? Never 08/28/2025 Q2: How many drinks containi ng alcohol do you have on a typical day when you are drinking? Patient does not drink Q3: How often do you have si x or more drinks on one occasion? Never 08/28/2025 Comments Unknown Sex and Gender Information Value Date Recorded Sex Assigned at Not on file Legal Sex Female 8:52 PM EDT Gender Identity Not on file Sexual Orientation Not on file documented as of this encounter Functional Status * Calculated C-SSRS Risk Score (Lifetime/Recent) Answer Date of Assessment Author No Risk Indicated 08/27/2025 10:41 PM EDT Kriss Arango RN * Question Answer Date of Assessment Author 1. Wish to be (Past 1 Month) No 025 10:41 PM EDT Kriss Arango RN 2. Non-Specific Active Suici zaire Thoughts (Past 1 Month) No 08/27/2025 10:41 PM EDT Kriss Arango RN 6. Suicidal Behavior (Lifetime) No 10:41 PM EDT Kriss Arango RN documented as of this encounter Plan of Treatment Upcoming Encounters Date Type Department Care Team (Late st Contact Info) Description 11/29/2025 10:40 AM EST Office Visit [facility] [place] [facility] [address] [place] [address] Julia Martinez PA [address] [place] [address] 12/09/2025 11:20 AM EST Office Visit [place] [facility] [address] [place] [address] Hector Fu, STILL OPERATOR BRANDY [address] [place] [address] 12/14/2025 3:00 PM EST Office Visit [facility] [address] [place] [address] Beto Hair, DO [address] [place] [address] documented as of this encounter Visit Diagnoses Not on filedocumented in this encounter Additional Health Concerns Assessment Noted Time A Body Mass Index follow-up plan has been documented for the patient 09/09/2025 1:57 PM EST documented as of this encounter Care Teams Shank Scourer Relationship Specialty Start Date End Date System, Provider Not In, [address] [place] [address] PCP - General Family Medicine 08/27/25 Jb Wayne [address] [place] [address] 08/27/25 documented as of this encounter
--- OUTSIDE RECORDS SUMMARY | 2025-10-23 09:37 | XMS_ITS | Encounter Summary ---
Author Organization [facility] Address [address] [place] [address] Care Team Providers Care General Foreman Name Role Phone System, Provider Not In MD Primary Care Provider Unavailable Jb Wayne Unavailable [phone] Encounter Details Date Type Department Care Team (Latest Contact Info) Description 08/31/2025 Travel Social History Tobacco Use Types Packs/Day [...] How often do you attend chur or presybeterian services? Patient unable to answer 08/30/2025 Do you belong to any clubs o r organizations such as mu-ism groups, unions, fraternal or athletic groups, or [...] were you homeless or living in a prison (including now)? Patient unable to answer 08/30/2025 [facility] Utilities Answer Date Recorded In the [...] Entry Date Author Precautions Fall risk;Environmen anshu surveillance 08/31/2025 11:00 PM EDT Kwesi Vences CNA documented in this encounter Plan of Treatment Upcoming Encounters Date Type Department Care Team (Late st Contact Info) Description 11/29/2025 10:40 AM EST Office Visit [facility] [place] [facility] [address] [place] [address] Julia Martinez PA [address] [place] [address] 12/09/2025 11:20 AM EST Office Visit [place] [facility] [address] [place] [address] Hector Fu, ELECTRICAL CONTROLS TECHNICIAN [address] [place] [address] 12/14/2025 3:00 PM EST Office Visit [facility] [address] [place] [address] Beto Hair DO [address] [place] [address] documented as of this encounter Visit Diagnoses Not on filedocumented in this encounter Additional Health Concerns Assessment Noted Time A Body Mass Index follow-up plan has been documented for the patient 09/09/2025 1:57 PM EST documented as of this encounter Care Teams General Foreman Relationship Specialty Start Date End Date System, Provider Not In, [place] [address] PCP - General Family Medicine 08/27/25 Jb Wayne [facility] [address] [place] [address] 08/27/25 documented as of this encounter
--- OUTSIDE RECORDS SUMMARY | 2025-10-23 09:37 | XMS_ITS ---
Author Organization [facility] Address [address] [place] [address] Care Team Providers Care Hotel Superintendent Name Role Phone System, Provider Not In MD Primary Care Provider Unavailable Jb Wayne Unavailable [phone] Myrna Wagoner LPN Unavailable Unavailable Ricardo Wayne Unavailable Unavailable Transitional Care Management Status:Closed (Closed) Program category:Transitional Care Management - [facility] Start date:09/29/2025 Enrollment date:09/29/2025 Enrollment reason:Identified using hospital discharge data End date:10/04/2025 Close reason:Not Eligible Overview This episode type is for outpatient care managers enrolling patients in the [facility] Transitional Care Management program. Continued Care and Services Coordination
--- OUTSIDE RECORDS SUMMARY | 2025-10-23 09:37 | XMS_ITS | Encounter Summary ---
Author Organization [facility] Address [address] [place] [address] Care Team Providers Care Criminal Justice Program Director Name Role Phone System, Provider Not In MD Primary Care Provider Unavailable Jb Wayne Unavailable [phone] Encounter Details Date Type Department Care Team (Latest Contact Info) Description 09/01/2025 Travel Social History Tobacco Use Types Packs/Day [...] How often do you attend chur or temple services? Patient unable to answer 08/30/2025 Do you belong to any clubs o r organizations such as jew groups, unions, fraternal or athletic groups, or [...] and heating? Patient unable to answer 08/30/2025 [facility] - Occupational [...] any time in the past 12 m onths, were you homeless or living in a halfway (including now)? Patient unable to answer 08/30/2025 [facility] Utilities Answer Date Recorded In the past [...] Answer Date of Assessment Author Precautions Fall risk;Aspiration;Environmenta l surveillance 09/01/2025 11:00 PM EDT Kwesi Vences CNA * Calculated C-SSRS Risk Score (Lifetime/Recent) Answer Date of Assessment Author No Risk Indicated 09/01/2025 8:00 PM EDT Ramona Nguyen RN * Question Answer Date of Assessment Author 1. Wish to be (Past 1 Month) No 025 8:00 PM EDT Kaylynn Nguyen, SEDA 2. Non-Specific Active Suici zaire Thoughts (Past 1 Month) No 09/01/2025 8:00 PM EDT Kaylynn Nguyen, SEDA 6. Suicidal Behavior (Lifetime) No 8:00 PM EDT Kaylynn Nguyen, SEDA documented as of this encounter Mental Status * Question Answer Entry Date Author Precautions Fall risk;Aspiration;Environmental surveillance 09/01/2025 11:00 PM EDT Kwesi Vences CNA documented in this encounter Plan of Treatment Upcoming Encounters Date Type Department Care Team (Late st Contact Info) Description 11/29/2025 10:40 AM EST Office Visit [facility] [place] [facility] [address] [place] [address] Julia Martinez PA [address] [place] [address] 12/09/2025 11:20 AM EST Office [facility] [place] [facility] [address], 1st [place] [address] Hector Fu, NILDA [address] [place] [address] 12/14/2025 3:00 PM EST [facility] Visit [facility] [address] [place] [place] [address] Beto Hair, [address] [place] [address] documented as of this encounter Visit Diagnoses Not on filedocumented in this encounter Additional Health Concerns Assessment Noted Time A Body Mass Index follow-up plan has been documented for the patient 09/09/2025 1:57 PM EST documented as of this encounter Care Teams Criminal Justice Program Director Relationship Specialty Start Date End Date System, Provider Not In, [address] [place] [address] PCP - General Family Medicine 08/27/25 Jb Wayne [facility] [address] [place], [place] [address] 08/27/25 documented as of this encounter
--- OUTSIDE RECORDS SUMMARY | 2025-10-23 09:37 | XMS_ITS | Encounter Summary ---
Author Organization [facility] Address [address] [place] [address] Care Team Providers Care Roundsman Name Role Phone System, Provider Not In MD Primary Care Provider Unavailable Jb Wayne Unavailable [phone] Myrna Wagoner LPN Unavailable Unavailable Ricardo Wayne Unavailable Unavailable Reason for Visit * Reason Comments Chw/[employer] Encounter Details Date Type Department Care Team (Late st Contact Info) Description 10/19/2025 Patient Outreach POPULATION HEALTH [address] [facility] [address], [address] [place] [address] Ricardo Wayne Chw/[facility] Social History [...] answer 08/30/2025 How often do you attend [facility] or anglican services? Patient unable to answer 08/30/2025 Do you belong to any clubs o r organizations such as sikh groups, unions, fraternal or athletic groups, or [...] Patient unable to answer 08/30/2025 [facility] Occupat ional Health - Occupational [...] any time in the past 12 m [facility], were you homeless or living in a long term (including now)? No 10/04/2025 [facility] Utilities Answer Date Recorded In the past [...] * Progress Notes - Ricardo Wayne - 10/19/2025 2:44 PM EST CHW Follow-up Encounter Note 10/19/2025 Pt called CHW to inform them that they have completed the application for [place], and asked what to do next. CHW asked if pt had a way to get the application to the office in [place], and pt informed CHW that their son will be taking them to an appt on Saturday, and they plan to drop it off then. CHW asked if they were able to compile the required documents on the checklist, and pt stated they did. CHW informed them that they're not sure if those documents will be processed on the spot, but they do accept copies of it in case pt needs the originals. Pt informed CHW that they will make copies at a nearby office if needed. CHW informed pt that, if they have any issues getting these documents to [place], they can reach out to CHW's direct line and they can arrange a time to help dropit off. Pt agreed. CHW will reach out to pt at a later date, if not heard back. documented in this encounter Plan of Treatment Upcoming Encounters Date Type Department Care Team (Late st Contact Info) Description 11/29/2025 10:40 AM EST Office Visit [facility] [place] [facility] [address] [facility] [place] [address] Julia Martinez PA [address] [place] [address] 12/09/2025 11:20 AM EST Office [facility] [place] [facility] [address], [address] [place] [address] Hector Fu, TRADE ANALYST [address] [place] [address] 12/14/2025 3:00 PM EST Office Visit [facility] [address] [place] [address] Beto Hair, [address] [place] [address] documented as of this encounter Visit Diagnoses Not on filedocumented in this encounter Additional Health Concerns Assessment Noted Time A Body Mass Index follow-up plan has been documented for the patient 09/09/2025 1:57 PM EST documented as of this encounter Care Teams Roundsman Relationship Specialty Start Date End Date System, Provider Not In, [address] [place] [address] PCP - General Family Medicine 08/27/25 Jb Wayne [address] [address] 08/27/25 Myrna Wagoner LPN VALUE[employer] [place] [address] None TCM Nurse 09/29/25 Ricardo Wayne Community Health Worker 10/06/25 documented as of this encounter
--- OUTSIDE RECORDS SUMMARY | 2025-10-23 09:37 | XMS_ITS | Clinical Summary ---
Author Organization [employer] ([place], [place], [place], [place], [place]) Address [address] [place] [address] Care Team Providers Care Plate Cleaner Name Role Phone [facility], Provider Not In The System Primary [...] Active Active Problems No known active problems Encounters Date Type Department Care Team Description 09/16/2025 Lab Requisition [facility] [address] [place] [address] Jas [facility] MD from Last 3 Months Family History Medical [...] Date Rey rded Speak language other than Portuguese at home Not on file 03/19/2024 Want [...] 2) 2016 Medicare Initial AWV [id number] 11/05/2023 Tobacco Cessation Counseling and Screening (12+) 04/09/2025 04/09/2024 COVID-19 VACCINE (3 - season) 07/05/202504/2021, 02/09/2021 Influenza Vaccine (#1) 2025 DTAP/TDAP/TD VACCINES (2 - Td or Tdap) 02/20/2031 Procedures Procedure Name Priority Date/Time Associated Diagnosis Comments URINALYSIS, REFLEX MICROSCOPIC AND CULTURE IF INDICATED Routine 09/16/2025 12:05 PM EST from Last 3 Months Results * Urinalysis, Reflex Microscopic and Culture If Indicated (09/16/2025 12:05 PM EST) Color, UA Light Yellow 09/16/2025 1:44 PM [facility] Clarity, UA Clear Clear 09/16/2025 1:44 PM [facility] Specific [place], UA 1.016 1.005 - 1.030 09/16/2025 1:44 PM [facility] pH, UA 6.0 6.0 - 8.0 09/16/2025 1:44 PM [facility] Leukocytes, UA Negative Negative 09/16/2025 1:44 PM [facility] Nitrite, UA Negative Negative 09/16/2025 1:44 PM [facility] Protein, UA Negative Negative 09/16/2025 1:44 PM [facility] Glucose, UA Normal Normal 09/16/2025 1:44 PM [facility] Ketones, UA Negative Negative 09/16/2025 1:44 PM [facility] Bilirubin, UA Negative Negative 09/16/2025 1:44 PM [facility] Blood, UA Negative Negative 09/16/2025 1:44 PM [facility] Urobilinogen, UA Normal Normal 09/16/2025 1:44 PM [facility] Specimen Source Urine, clean catch 09/16/2025 1:44 PM [facility] Urine URINE SPECIMEN COLLECTION, CLEAN CATCH / Unknown 09/16/2025 12:05 PM EST 09/16/2025 1:34 PM EST us Jas Wayne MD URINE ORDERABLES Final Resul t [facility] [address] [place] [address], [facility] [phone] from Last 3 Months Insurance MEDICARE HMO Care Teams Plate Cleaner Relationship Specialty Start Date End Date [facility], Provider Not In The System, [place] [address] PCP - General 04/09/24 Phillip Amanda MD [address] [facility] [address] [place] [address] Cardiology 04/09/24
--- OUTSIDE RECORDS SUMMARY | 2025-10-23 09:37 | XMS_ITS | Encounter Summary ---
Author Organization [facility] Address [address] [place] [address] Care Team Providers Care Help Desk Specialist Name Role Phone System, Provider Not In MD Primary Care Provider Unavailable Jb [facility] Unavailable [phone] Myrna Wagoner LPN Unavailable Unavailable Ricardo Wayne Unavailable Unavailable Reason for Visit * Reason Comments Chw/[employer] Encounter Details Date Type Department Care Team (Late st Contact Info) Description 10/15/2025 Patient Outreach POPULATION HEALTH [address] [facility] [address] [place] [address] Ricardo Wayne Chw/[employer] Social History [...] answer 08/30/2025 How often do you attend [facility] or gnosticism services? Patient unable to answer 08/30/2025 Do you belong to any clubs o r organizations such as quaker groups, unions, fraternal or athletic groups, or [...] and heating? Patient unable to answer 08/30/2025 [facility] of Occupat ional Health - Occupational [...] were you homeless or living in a penitentiary (including now)? No 10/04/2025 [facility] Utilities Answer Date Recorded In [...] * Progress Notes - Ricardo [facility] - 10/15/2025 4:03 PM EST CHW Follow-up Encounter Note 10/15/2025 Pt called CHW and was confused about TH appt today. Pt was also confused as to who their PCP is. Pt's PCP is marked as System, Provider Not In, GERARD SOMERS identified the number connected to the address listed. Pt has had a PCP in [place] for three years and is unsure if they are still their provider, or if they can have two PCPs. CHW provided the number for pt to call and ask about PCP. During conversation, pt remembered they were supposed to download an chaitanya for appt today, but did not. Pt also had new internet installed and plans to use their laptop in the future. CHW also identified the phone number for the clinic and instructed pt to reach out to them and inform them of technology situation, that way they can reschedule instead of marking the appt as a no-show. CHW will monitor pt's chart and reach out at a later date, if not heard back. 10/18/2025 Pt canceled appt, no longer needed today. CHW will reach out later this week to discuss applicationand see if they are ready to turn it in. documented in this encounter Plan of Treatment Upcoming Encounters Date Type Department Care Team (Late st Contact Info) Description 11/29/2025 10:40 AM EST Office Visit [facility] [place] [address] [place] [address] Julia Martinez PA [address] [place] [address] 12/09/2025 11:20 AM EST Office Visit [place] [facility] [address], [address] [place] [address] Hector Fu APRN [address] [place] [address] 12/14/2025 3:00 PM EST Office Visit [facility] [address] [place] [address] Beto Hair DO [address] [place] [address] documented as of this encounter Visit Diagnoses Not on filedocumented in this encounter Additional Health Concerns Assessment Noted Time A Body Mass Index follow-up plan has been documented for the patient 09/09/2025 1:57 PM EST documented as of this encounter Care Teams Help Desk Specialist Relationship Specialty Start Date End Date System, Provider Not In, [place] [address] PCP - General Family Medicine 08/27/25 Jb Wayne [address] [id number] 08/27/25 Myrna Wagoner, ROUTE DELIVERY SUPERVISOR VALUE-BASED [place] [address] None TCM Nurse 09/29/25 Ricardo Wayne Community Health Worker 10/06/25 documented as of this encounter
--- OUTSIDE RECORDS SUMMARY | 2025-10-23 09:37 | XMS_ITS ---
Author Organization [facility] Address [address] [place] [address] Care Team Providers Care Surgical Scheduler Name Role Phone System, Provider Not In MD Primary Care Provider Unavailable Jb Wayne Unavailable [phone] Myrna Wagoner LPN Unavailable Unavailable Ricardo Wayne Unavailable Unavailable Transitional Care Management Status:Active (Active) Program category:Transitional Care Management - [facility] Start date:10/04/2025 Enrollment date:10/05/2025 Enrollment reason:Identified using hospital discharge data Overview This episode type is for outpatient care managers enrolling patients in the [facility] Transitional Care Management program. Case Team Name Relationship Phone Myrna Wagoner LPN(Responsible Staff) TCM Nurse Continued Care and Services Coordination
--- OUTSIDE RECORDS SUMMARY | 2025-10-23 09:37 | XMS_ITS ---
Author Organization [facility] Address [address] [place] [address] Care Team Providers Care Magnetic Locater Name Role Phone System, Provider Not In MD Primary Care Provider Unavailable Jb Wayne Unavailable [phone] Myrna Wagoner LPN Unavailable Unavailable Ricardo Wayne Unavailable Unavailable Community Health Work Status:Active (Active) Program category:Care Coordination Start date:10/06/2025 Enrollment date:10/06/2025 Overview This episode type is for outpatient Community Health Workers enrolling patients in their program. Case Team Name Relationship Phone Ricardo Wayne(Responsible Staff) Community Health Worker Continued Care and Services Coordination
--- OUTSIDE RECORDS SUMMARY | 2025-10-23 09:37 | XMS_ITS | Encounter Summary ---
Author Organization [employer] ([place], [place], [place], [place], [place]) Address [address] [place] [address] Care Team Providers Care Chauffeur Motorbus Name Role Phone [facility], Provider Not In The System Primary Care Provider Unavailable Phillip Amanda MD Unavailable Encounter Details Date Type Department Care Team (Late st Contact Info) Description 09/16/2025 Lab Requisition [facility] [address] [place] [address] Jas [facility] MD [address] [facility] [address] [place] [address] Social History Tobacco Use Types Packs/Day Years Used Date Smoking Tobacco: Every Day Cigarettes Smokeless Tobacco: Never Alcohol Use Standard Drinks/Week Comments Never 0 (1 standard drink = 0.6 oz pur e alcohol) Family and Community Support Answer Salbador e Recorded Help with Day to Day Activities Not on file 03/19/2024 Feeling Lonely or Isolated Not on file 03/19 Educational Attainment Answer Date Rey rded Speak language other than Georgian at home Not on file 03/19/2024 Want [...] as of this encounter Plan of Treatment Not on file documented as of this encounter Procedures Procedure Name Priority Date/Time Associated Diagnosis Comments URINALYSIS, REFLEX MICROSCOPIC AND CULTURE IF INDICATED Routine 09/16/2025 12:05 PM EST documented in this encounter Results * Urinalysis, Reflex Microscopic and Culture If Indicated (09/16/2025 12:05 PM EST) Color, UA Light Yellow 09/16/2025 1:44 PM [facility] Clarity, UA Clear Clear 09/16/2025 1:44 PM [facility] Specific [place], UA 1.016 1.005 - 1.030 09/16/2025 1:44 PM EST [facility] pH, UA 6.0 6.0 - 8.0 09/16/2025 1:44 PM [facility] Leukocytes, UA Negative Negative 09/16/2025 1:44 PM [facility] Nitrite, UA Negative Negative 09/16/2025 1:44 PM EST [facility] Protein, UA Negative Negative 09/16/2025 1:44 PM [facility] Glucose, UA Normal Normal 09/16/2025 1:44 PM EST [facility] Ketones, UA Negative Negative 09/16/2025 1:44 PM [facility] Bilirubin, UA Negative Negative 09/16/2025 1:44 PM [facility] Blood, UA Negative Negative 09/16/2025 1:44 PM [facility] Urobilinogen, UA Normal Normal 09/16/2025 1:44 PM [facility] Specimen Source Urine, clean catch 09/16/2025 1:44 PM EST [facility] Urine URINE SPECIMEN COLLECTION, CLEAN CATCH / Unknown 09/16/2025 12:05 PM EST 09/16/2025 1:34 PM EST us Jas Wayne MD URINE ORDERABLES Final Resul t [facility] [address] [phone] documented in this encounter Visit Diagnoses Not on filedocumented in this encounter Care Teams Chauffeur Motorbus Relationship Specialty Start Date End Date [facility], Provider Not In The System, [place] [address] PCP - General 04/09/24 Phillip Amanda MD [address] [facility] [address] [place] [id number] Cardiology 04/09/24 documented as of this encounter
--- OUTSIDE RECORDS SUMMARY | 2025-10-23 09:38 | XMS_ITS | Encounter Summary ---
Author Organization [facility] Address [address] [place] [address] Care Team Providers Care Mechanical Design Engineer Facilities Name Role Phone System, Provider Not In MD Primary Care Provider Unavailable Jb Wayne Unavailable [phone] Encounter Details Date Type Department Care Team (Latest Contact Info) Description 09/09/2025 Travel Social History Tobacco Use Types Packs/Day [...] How often do you attend chur or cheondoism services? Patient unable to answer 08/30/2025 Do you belong to any clubs o r organizations such as moravian groups, unions, fraternal or athletic groups, or [...] heating? Patient unable to answer 08/30/2025 [facility] of Occupat ional Health - Occupational [...] were you homeless or living in a nursing home (including now)? Patient unable to answer 08/30/2025 [facility] Utilities Answer Date Recorded In the [...] 09/09/2025 2:00 PM EST Cecilia Jay RN documented in this encounter Plan of Treatment Upcoming Encounters Date Type Department Care Team (Late st Contact Info) Description 11/29/2025 10:40 AM EST Office Visit [facility] [place] [facility] [address] [place] [address] Julia Martinez PA [address] [place] [address] 12/09/2025 11:20 AM EST Office [facility] [place] [facility] [address], [address] [place] [address] Hector Fu, PERSONAL FINANCE INSTRUCTOR [address] [place] [address] 12/14/2025 3:00 PM EST Office Visit [facility] [address] [place] [address] Beto Hair DO [address] [place] [address] documented as of this encounter Visit Diagnoses Not on filedocumented in this encounter Additional Health Concerns Assessment Noted Time A Body Mass Index follow-up plan has been documented for the patient 09/09/2025 1:57 PM EST documented as of this encounter Care Teams Mechanical Design Engineer Facilities Relationship Specialty Start Date End Date System, Provider Not In, [place] [address] PCP - General Family Medicine 08/27/25 Jb [facility] [address] [place] [address] 08/27/25 documented as of this encounter
--- OUTSIDE RECORDS SUMMARY | 2025-10-23 09:38 | XMS_ITS | Encounter Summary ---
Author Organization [facility] Address [address] [place] [address] Care Team Providers Care Sieve Repairer Name Role Phone System, Provider Not In MD Primary Care Provider Unavailable Jb Wayne Unavailable [phone] Encounter Details Date Type Department Care Team (Latest Contact Info) Description 09/07/2025 Travel Social History Tobacco Use Types Packs/Day [...] How often do you attend chur or mandaen services? Patient unable to answer 08/30/2025 Do you belong to any clubs o r organizations such as jainism groups, unions, fraternal or athletic groups, or [...] and heating? Patient unable to answer 08/30/2025 [facility] of Occupat ional Health - Occupational [...] were you homeless or living in a m[facility]p (including now)? Patient unable to answer 08/30/2025 [facility] Utilities Answer Date Recorded In [...] Date Author Precautions Fall risk;Environmen anshu surveillance 09/07/2025 11:00 PM EST Kwesi Vences CNA documented in this encounter Plan of Treatment Upcoming Encounters Date Type Department Care Team (Late st Contact Info) Description 11/29/2025 10:40 AM EST Office Visit [facility] [place] [facility] [address] [place] [address] Julia Martinez PA [address] [place] [address] 12/09/2025 11:20 AM EST Office [facility] [place] [facility] [address], [address] [place] [address] Hector Fu, MANUFACTURING SR ENGINEER [address] [place] [address] 12/14/2025 3:00 PM EST Office Visit [facility] [address] [place] [address] Beto Hair DO [address] [place] [address] documented as of this encounter Visit Diagnoses Not on filedocumented in this encounter Additional Health Concerns Assessment Noted Time A Body Mass Index follow-up plan has been documented for the patient 09/09/2025 1:57 PM EST documented as of this encounter Care Teams Sieve Repairer Relationship Specialty Start Date End Date System, Provider Not In, [place] [address] PCP - General Family Medicine 08/27/25 Jb Wayne [facility] [address] [place] [address] 08/27/25 documented as of this encounter
--- OUTSIDE RECORDS SUMMARY | 2025-10-23 09:38 | XMS_ITS | Encounter Summary ---
Author Organization [facility] Address [address] [place] [address] Care Team Providers Care Director Of Accounts Receivable Name Role Phone System, Provider Not In MD Primary Care Provider Unavailable Jb Wayne Unavailable Encounter Details Date Type Department Care Team (Latest Contact Info) Description 08/29/2025 Travel Social History Tobacco Use Types Packs/Day [...] How often do you attend chur or gnosticism services? Patient unable to answer 08/30/2025 Do you belong to any clubs o r organizations such as denominational groups, unions, fraternal or athletic groups, or [...] and heating? Patient unable to answer 08/30/2025 [facility] [...] were you homeless or living in a fpc (including now)? Patient unable to answer 08/30/2025 [facility] Utilities Answer Date Recorded [...] Date Author Precautions Fall risk;Environmen anshu surveillance 08/29/2025 10:00 PM EDT Alyssa Shaw RN documented in this encounter Plan of Treatment Upcoming Encounters Date Type Department Care Team (Late st Contact Info) Description 11/29/2025 10:40 AM EST Office Visit [facility] [place] [facility] [address] [place] [address] Julia Martinez PA [address] [place] [address] 12/09/2025 11:20 AM EST Office Visit [place] [facility] [address] [place] [address] Hector Fu, INSPECTOR [employer]INTING [address] [place] [address] 12/14/2025 3:00 PM EST Office Visit [facility] [address] [place] [address] Beto Hair DO [address] [place] [address] documented as of this encounter Visit Diagnoses Not on filedocumented in this encounter Additional Health Concerns Assessment Noted Time A Body Mass Index follow-up plan has been documented for the patient 09/09/2025 1:57 PM EST documented as of this encounter Care Teams Director Of Accounts Receivable Relationship Specialty Start Date End Date System, Provider Not In, [place] [address] PCP - General Family Medicine 08/27/25 Jb Wayne [facility] [address] [place] [address] 08/27/25 documented as of this encounter
--- OUTSIDE RECORDS SUMMARY | 2025-10-23 09:38 | XMS_ITS | Encounter Summary ---
Author Organization [facility] Address [address] [place] [address] Care Team Providers Care Retail Performance Specialist Name Role Phone System, Provider Not In MD Primary Care Provider Unavailable Jb Wayne Unavailable [phone] Myrna Wagoner LPN Unavailable Unavailable Reason for Visit * Reason Comments TCM Encounter Details Date Type Department Care Team (Late st Contact Info) Description 09/29/2025 Patient Outreach [facility] [address] [place] [address] Myrna Wagoner LPN [employer] [place] [address] None TCM Social History Tobacco Use Types [...] answer 08/30/2025 How often do you attend [facility] or jain services? Patient unable to answer 08/30/2025 Do you belong to any clubs o r organizations such as gnosticist groups, unions, fraQuisk or athletic groups, or school groups? Patient [...] any time in the past 12 m [facility], were you homeless or living in a prison (including now)? Patient unable to answer 08/30/2025 [facility] Utilities Answer Date Recorded In the [...] Progress Notes - Myrna Wagoner LPN - 09/29/2025 7:51 AM EST Admit Date: 08/27/2025 Discharge Date: 09/09/2025 Hospital Service: Neurology Discharge Diagnosis: Acute intra-cranial hemorrhage 09/29/2025 TCM call # N/A Patient Reached: N/A Outcome: Discharged to [facility], per appointment notes anticipated discharge date of 10/01/2025. [facility] nurse will reach out upon discharge. Action: N/A Medication changes: N/A [facility] appointment: 10/05/2025 at 2:[address] Chambers. Items to address at [facility]: N/A documented in this encounter Plan of Treatment Upcoming Encounters Date Type Department Care Team (Late st Contact Info) Description 11/29/2025 10:40 AM EST Office Visit [facility] [place] [facility] [address] [place] [address] Julia Martinez PA [address] [place] [phone] 12/09/2025 11:20 AM EST Office Visit [place] [facility] [address] [place] [address] Hector Fu APRN [address] [place] [address] 12/14/2025 3:00 PM EST Office Visit [facility] [address] [place] [phone] Beto Hair, [address] [place] [address] documented as of this encounter Visit Diagnoses Not on filedocumented in this encounter Additional Health Concerns Assessment Noted Time A Body Mass Index follow-up plan has been documented for the patient 09/09/2025 1:57 PM EST documented as of this encounter Care Teams Retail Performance Specialist Relationship Specialty Start Date End Date System, Provider Not In, [address] [place] [address] PCP - General Family Medicine 08/27/25 Jb Wayne [facility] [address] [place] [address] 08/27/25 Myrna Wagoner LPN VALUE-[employer]ED [place] [address] None TCM Nurse 09/29/25 documented as of this encounter
--- OUTSIDE RECORDS SUMMARY | 2025-10-23 09:38 | XMS_ITS | Encounter Summary ---
Author Organization [facility] Address [address] [place] [address] Care Team Providers Care Channeler Outsole Name Role Phone System, Provider Not In MD Primary Care Provider Unavailable Jb Wayne Unavailable [phone] Encounter Details Date Type Department Care Team (Latest Contact Info) Description 09/10/2025 Travel Social History Tobacco Use Types Packs/Day [...] How often do you attend chur or yarsani services? Patient unable to answer 08/30/2025 Do you belong to any clubs o r organizations such as zoroastrian groups, unions, fraternal or athletic groups, or [...] and heating? Patient unable to answer 08/30/2025 [facility] - Occupational [...] (including now)? Patient unable to answer 08/30/2025 [facility] Utilities Answer Date Recorded In the past [...] Description 11/29/2025 10:40 AM EST Office Visit [facility] [place] [facility] [address] [place] [address] Julia Martinez PA [address] [place] [address] 12/09/2025 11:20 AM EST Office Visit [place] [facility] [address] [place] [phone] Hector Fu, NILDA [address] [place] [address] 12/14/2025 3:00 PM EST Office Visit [facility] [address] [place] [address] Beto Hair DO [address] [place] [address] documented as of this encounter Visit Diagnoses Not on filedocumented in this encounter Additional Health Concerns Assessment Noted Time A Body Mass Index follow-up plan has been documented for the patient 09/09/2025 1:57 PM EST documented as of this encounter Care Teams Channeler Outsole Relationship Specialty Start Date End Date System, Provider Not In, [address] [place] [address] PCP - General Family Medicine 08/27/25 Jb Wayne [facility] [address] [place] [address] 08/27/25 documented as of this encounter
== END 2025-10-22 23:59 | disposition home or self-care (01) ==
LOC: LAB.DROPOF 10-23 09:34
PROVIDERS: PCP Nurse Practitioner Family; Visit Provider Nurse Practitioner Family
DX: E03.9 Hypothyroidism, unspecified (principal); E11.9 Type 2 diabetes mellitus without complications; E78.5 Hyperlipidemia, unspecified; I63.9 Cerebral infarction, unspecified; E55.9 Vitamin D deficiency, unspecified
CPT/HCPCS: 80053; 80061; 82306; 83036; 84443; 85025